=== PATIENT | female | born 1930 | race Caucasian/White ===

== ENCOUNTER → 2016-05-01 | Day surgery (SDC) | payer MEDICARE ==
[~2016-05-01] MED LIST: AMIT10TA13 PO; ATOR80TA PO; BISA10R PR; CILO100T PO; CLINDAMYCIN PHOS 900 MG/6 ML VIAL ONE; DILTCD180 PO; DOCU1CAP39 PO; LACTATED RINGER'S 1000 ML INJ 1,000 ML ONE; LIDOCAINE 1%/EPINEPHrine 1:100,000 SOLN 30 ML VIAL ONE; MAGN30S PO; MINERAL OIL 10 ML VIAL ONE; NORC7.5T PO; OMEP20CA5 PO; ONDANSETRON HCL 4 MG/2 ML VIAL IV PUSH ONE; PROPOFOL 200 MG/20 ML AMP IV ONE; SODIUM CHLORIDE 0.9% 100 ML ADDBAG IV ONE; VITA20003 PO
--- NOTE | 2016-05-02 08:12 | MP ---
cc: DON LOMELI M.D. DATE OF SURGERY: 05/01/2016 PREOPERATIVE DIAGNOSES 1. Large growing lesion left lateral leg, clinically squamous cell carcinoma. 2. Chronic skin lesion anterior lower thigh. possible scc POSTOPERATIVE DIAGNOSIS 1. Large growing lesion left lateral leg, clinically squamous cell carcinoma. 2. Chronic skin lesion anterior lower thigh. possible scc OPERATION 1. Large left leg lateral lesion 4 cm diameter excision, frozen section and split-thickness from the left thigh. 2. Excision left anterior lower thigh/knee area skin lesion squamous cell carcinoma, 2.5 cm circular excision and frozen section with bilateral V-Y advancement flap closure. SURGEON Dr. Lomeli ANESTHESIA General. INDICATIONS An 85-year-old white female with rapidly growing keratoacanthoma type of lesion on the left mid lateral leg with pain. The lesion had a fleshy base and is about 2 cm in base diameter. An excision with a 1 cm margin was planned. The second lesion has been present for a very long time but it appears to be a superficial red thickened lesion clinically suspicious for carcinoma and the lesion is present just above the knee crease about a 1.8 vertical and 1.5 cm transverse area lesion. The patient underwent explanation of the excision and frozen section process and reconstruction using skin graft for the left leg and a local closure of the knee area lesion. She understands the possibility of general risks and complications such as bleeding, infection, wound healing problems, wound dehiscence, possible need for chronic wound care, etc., and is willing to go ahead with the surgery. PROCEDURE The patient was brought to the operating room, was given supine position. Anesthesia was started. IV antibiotic had been given. A timeout was called and completed. Prep and drape was done. The preoperative markings were reinforced. A centimeter margin was taken around the left leg lateral lesion and a 4 mm margin was taken of the one on the lower thigh orienting it transversely. Both lesions were infiltrated with lidocaine 1% with epinephrine and saline solution, excised and suture marked superior and sent for frozen section. The excision on the lower thigh/anterior knee area was done circular and a lateral triangular extension was marked on both side going about 1.5 cm on each side. The ends were incised and the inner part of the triangle was lifted with approximately one-third of the connective tissue support underneath. Hemostasis was completed. 4-0 Vicryl sutures were used to approximate the two triangles to the midline and then additional stitch used at the peripheral surgical wound as well converting the V triangles into Y on both sides. The closure was completed without much tension. A split-thickness skin graft was harvested from the left thigh with a dermatome and meshed to 1.5 ratio. It was applied to the defect on the left leg and sutured in place. The excess graft after the meshing was returned back to the donor site. The frozen section report indicated the anterior thigh was a squamous cell carcinoma in situ with clear margins, and the left leg lesion was an invasive squamous cell carcinoma and again the margins were clear. The patient was given sterile dressing in all areas. The patient remained stable. Intraoperative blood loss was less than 5 cc. No complications. signed, not fully reviewed MD URBANO Lara/NOEMÍ /1:04 PM /7:54 AM PETER
== END | disposition home or self-care (01) ==
LOC: ESDC 07:51
PROVIDERS: ATTEND Plastic Surgery
DX: C44.729 Squamous cell carcinoma of skin of left lower limb, including hip (principal)
CPT/HCPCS: 00400; 11604; 14020; 15100; 88305; 88331; J2405; J3010; J7120

== ENCOUNTER 2016-11-20 12:37 | Inpatient (IN) | payer MEDICARE ==
[~2016-11-20] VITALS: Ht 157.5 cm; Wt 69.2 kg
[2016-11-20] VITALS (8 sets, daily range): BP systolic 115–141; BP diastolic 63–86; PULSE 74–161; RESP 18–20; TEMP 97.3–98.5; O2SAT 95–99
[~2016-11-20 12:37] MED LIST changes: -CLINDAMYCIN PHOS 900 MG/6 ML VIAL ONE; -LACTATED RINGER'S 1000 ML INJ 1,000 ML ONE; -LIDOCAINE 1%/EPINEPHrine 1:100,000 SOLN 30 ML VIAL ONE; -MINERAL OIL 10 ML VIAL ONE; -ONDANSETRON HCL 4 MG/2 ML VIAL IV PUSH ONE; -PROPOFOL 200 MG/20 ML AMP IV ONE; -SODIUM CHLORIDE 0.9% 100 ML ADDBAG IV ONE
--- NOTE | 2016-11-20 13:25 | PD ---
HPI Chief Complaint: Abdominal Pain Time Seen by Provider: 12:57 Travel History International Travel<30 days: No Contact w/Intl Traveler<30days: No Traveled to known affect area: No History of Present Illness HPI 86 years old female complains of chest pain and abdominal pain. Patient states that the symptoms started 2 days ago. Patient states that she has intermittent chest pain recently. Patient states that she had nuclear stress test done at [facility] by Dr. David Ramirez and Dr. Trujillo last week but does not know the results of that. Patient started having substernal chest pain and diffuse abdominal pain 2 days ago. Patient states that the chest pain and abdominal pain has been persistent since then. Patient states that the chest pain is sharp pain started at substernal area with radiation to the back. Patient states abdominal pain is sharp pain diffuse over the abdomen with radiation to the back also. Patient denies any fever chills. Patient denies any coughing congestion. Patient states that she has intermittent nausea vomiting the past 2 days. Patient denies any dysuria or frequency. Patient denies any vaginal discharge or bleeding. Patient has history hypertension, hyperlipidemia. Patient denies history diabetes. Patient is nonsmoker. Patient's adopted does not know family history of heart disease. On a scale of 1-10 the pain is a 6. Patient was admitted September 24, 2014 for choledocholithiasis, atrial fibrillation , acute kidney injury, coronary artery disease, hypertension, GERD. Patient had an MRCP and ERCP done with GI consultation and subsequent biliary stent placement. PFSH Past Medical History Arthritis: Yes Asthma: No Autoimmune Disease: No Blood Disorders: No Heart Rhythm Problems: No Cancer: No Cardiovascular Problems: Yes High Cholesterol: No Chemotherapy: No Chest Pain: No Congestive Heart Failure: No COPD: No Cerebrovascular Accident: Yes (TIA) Diabetes: No Diminished Hearing: No Endocrine: No Gastrointestinal Disorders: Yes (ACID REFLUX, "3 surgeries to remove gallstones ") GERD: No Glaucoma: No Genitourinary: No Headaches: No Hepatitis: No Hiatal Hernia: No Heparin Induced Thrombocytopen: No Hypertension: Yes Immune Disorder: No Implanted Vascular Access Dvce: Yes Kidney Stones: No Medical other: Yes (RIGHT EYE PROSTHESIS) Musculoskeletal: No Neurologic: No Psychiatric: No Reproductive: No Respiratory: Yes Migraines: No Myocardial Infarction: No Radiation Therapy: No Renal Failure: No Seizures: No Sickle Cell Disease: No Sleep Apnea: No Thyroid Disease: No Ulcer: No ?: Not Past Surgical History Abdominal Surgery: Yes ( SLING) AICD: No Appendectomy: No Arteriovenous Shunt: No Body Medical Devices: RIGHT EYE PROSTHESIS Cardiac Surgery: Yes (3 WAY BYPASS) Cholecystectomy: No Coronary Artery Bypass Graft: Yes Ear Surgery: No Endocrine Surgery: No Eye Surgery: Yes (CATARECTS. LOST LEFT EYE. ) Genitourinary Surgery: Yes (SLING) Gynecologic Surgery: Yes (HYSTERECTOMY) Hysterectomy: Yes Insulin Pump: No Joint Replacement: No Neurologic Surgery: No Oral Surgery: No Pacemaker: No Thoracic Surgery: No Other Surgery: Yes (AUGUSTINE CAROTID ENDARTERECTOMIES) Social History Alcohol Use: Yes (on occasion) Tobacco Use: No Substance Use: No Allergies-Medications (Allergen,Severity, Reaction): Coded Allergies: penicillin G (Unverified Allergy, Severe, HIVES, 10/23/16) Reported Meds & Prescriptions Reported Meds & Active Scripts Active Review of Systems General / Constitutional: No: Fever Eyes: No: Visual changes HENT: No: Headaches Cardiovascular: Positive: Chest Pain or Discomfort Respiratory: No: Shortness of Breath Gastrointestinal: Positive: Nausea, Vomiting, Abdominal Pain Genitourinary: No: Dysuria Musculoskeletal: No: Pain Skin: No Rash Neurologic: No: Weakness Psychiatric: No: Depression Endocrine: No: Polydipsia Hematologic/Lymphatic: No: Easy Bruising Physical Exam Narrative GENERAL: Well-nourished, well-developed patient. SKIN: Focused skin assessment warm/dry. HEAD: Normocephalic. EYES: No scleral icterus. No injection or drainage. NECK: Supple, trachea midline. No JVD or lymphadenopathy. CARDIOVASCULAR: Regular rate and rhythm without murmurs, gallops, or rubs. RESPIRATORY: Breath sounds equal bilaterally. No accessory muscle use. GASTROINTESTINAL: Abdomen soft, nondistended. Patient has moderate diffuse tenderness over the abdomen. No rebound tenderness. No mass. MUSCULOSKELETAL: No cyanosis, or edema. BACK: Nontender without obvious deformity. No CVA tenderness. Neurologic exam normal. Data Data Last Documented VS Vital Signs Date Time Temp Pulse Resp B/P (MAP) Pulse Ox O2 Delivery O2 Flow Rate FiO2 11/20/16 13:24 18 99 Nasal Cannula 2.00 11/20/16 13:00 98.5 98 Orders Orders Electrocardiogram (11/20/16 13:09) Complete Blood Count With Diff (11/20/16 13:09) Comprehensive Metabolic Panel (11/20/16 13:09) Creatine Kinase (Cpk) (11/20/16 13:09) Troponin I (11/20/16 13:09) B-Type Natriuretic Peptide (11/20/16 13:09) Prothrombin Time / Inr (Pt) (11/20/16 13:09) Act Partial Throm Time (Ptt) (11/20/16 13:09) Lipase (11/20/16 13:09) Urinalysis - C+S If Indicated (11/20/16 13:09) Chest, Single Ap (11/20/16 13:09) Iv Access Insert/Monitor (11/20/16 13:09) Ecg Monitoring (11/20/16 13:09) Oximetry (11/20/16 13:09) Morphine Inj (Morphine Inj) (11/20/16 13:30) Ondansetron Inj (Zofran Inj) (11/20/16 13:30) Morphine Inj (Morphine Inj) (11/20/16 13:30) Sodium Chlor 0.9% 1000 Ml Inj (Ns 1000 M (11/20/16 14:00) Ct Thorax/ Chest Wo Iv Contras (11/20/16 14:07) Ct Abd/Pel W/O Iv Contrast (11/20/16 14:07) Morphine Inj (Morphine Inj) (11/20/16 15:15) Levofloxacin 500 Mg Premix Inj (Levaquin (11/20/16 16:00) Metronidazole 500 Mg Inj (Flagyl 500 Mg (11/20/16 16:00) Labs Laboratory Tests Test 11/20/16 13:30 White Blood Count 39.1 TH/MM3 Red Blood Count 5.34 MIL/MM3 Hemoglobin 14.4 GM/DL Hematocrit 43.4 % Mean Corpuscular Volume 81.3 FL Mean Corpuscular Hemoglobin 26.9 PG Mean Corpuscular Hemoglobin Concent 33.1 % Red Cell Distribution Width 16.4 % Platelet Count 129 TH/MM3 Mean Platelet Volume 11.4 FL Neutrophils (%) (Auto) 89.5 % Lymphocytes (%) (Auto) 1.6 % Monocytes (%) (Auto) 7.4 % Eosinophils (%) (Auto) 0.5 % Basophils (%) (Auto) 1.0 % Neutrophils # (Auto) 35.1 TH/MM3 Lymphocytes # (Auto) 0.6 TH/MM3 Monocytes # (Auto) 2.9 TH/MM3 Eosinophils # (Auto) 0.2 TH/MM3 Basophils # (Auto) 0.4 TH/MM3 CBC Comment AUTO DIFF Differential Total Cells Counted 100 Neutrophils % (Manual) 71 % Band Neutrophils % 27 % Monocytes % 2 % Neutrophils # (Manual) 38.3 TH/MM3 Differential Comment FINAL DIFF MANUAL Platelet Estimate LOW Platelet Morphology Comment NORMAL Ovalocytes 1+ Acanthocytes 2+ Keratocytes 1+ Prothrombin Time 12.8 SEC Prothromb Time International Ratio 1.2 RATIO Activated Partial Thromboplast Time 31.5 SEC Blood Urea Nitrogen 32 MG/DL Creatinine 1.59 MG/DL Random Glucose 132 MG/DL Total Protein 8.6 GM/DL Albumin 3.7 GM/DL Calcium Level 9.5 MG/DL Alkaline Phosphatase 378 U/L Aspartate Amino Transf (AST/SGOT) 293 U/L Alanine Aminotransferase (ALT/SGPT) 479 U/L Total Bilirubin 4.1 MG/DL Sodium Level 134 MEQ/L Potassium Level 3.2 MEQ/L Chloride Level 98 MEQ/L Carbon Dioxide Level 23.2 MEQ/L Anion Gap 13 MEQ/L Estimat Glomerular Filtration Rate 31 ML/MIN Total Creatine Kinase 96 U/L Troponin I 0.22 NG/ML B-Type Natriuretic Peptide 586 PG/ML Lipase 49 U/L [facility] Medical Decision Making Medical Screen Exam Complete: Yes Emergency Medical Condition: Yes Interpretation(s) Last Impressions Chest X-Ray 11/20/16 1309 Signed Impressions: Service Date/Time: Sunday, November 20, 2016 13:24 - CONCLUSION: 1. Chronic interstitial changes with mild superimposed airspace disease in the left lower lung zone which may reflect atelectasis. Sam Buckner MD 1409 p.m. CBC WBC 39.1. Platelet 129. 89 neutrophil. Sodium 134. Potassium 3.2. BUN 32. Creatinine 1.59. AST 293. ALT 479. 1544 PM. Total bili 4.1. Alkaline phosphatase 378. BNP 586. INR 1.2. Troponin 0.22. Patient had chronic elevation of troponin. Last Impressions Chest X-Ray 11/20/16 1309 Signed Impressions: Service Date/Time: Sunday, November 20, 2016 13:24 - CONCLUSION: 1. Chronic interstitial changes with mild superimposed airspace disease in the left lower lung zone which may reflect atelectasis. Sam Buckner MD CT of the chest shows severe underlying emphysema. Chronic changes. CT abdomen and pelvis shows ileus. Differential Diagnosis Differential diagnosis including angina, [place], PE, pneumothorax, aortic aneurysm, gastritis, PUD, pancreatitis, cholecystitis, colitis, UTI, pyelonephritis, nephrolithiasis. Narrative Course 86 years old female with chest pain and abdominal pain, nausea vomiting. Normal saline solution 100 cc an hour. Morphine 2 mg IV. Zofran 4 mg IV. Levaquin 500 mg IV. Flagyl 500 mg IV. Diagnosis Primary Impression: Abdominal pain Qualified Codes: R10.84 - Generalized abdominal pain Additional Impressions: Ileus Chest pain Qualified Codes: R07.9 - Chest pain, unspecified Leukocytosis Qualified Codes: D72.829 - Elevated white blood cell count, unspecified Hypokalemia Transaminitis Christopher Mulligan MD Nov 20, 2016 13:25
[2016-11-20] MEDS ORDERED: MORPHINE SULFATE 4 MG/ML INJ IV PUSH ONE ×2 (13:30→15:15)
[2016-11-20] MEDS ORDERED: MORPHINE SULFATE 2 MG/ML INJ IV PUSH ONE (13:30)
[2016-11-20] MEDS ORDERED: ONDANSETRON HCL 4 MG/2 ML VIAL IV PUSH ONE (13:30)
[2016-11-20 13:42] LABS: AUTOMATED NEUTROPHIL # 35.1 TH/MM3 (1.8-7.7); BASOPHIL # 0.4 TH/MM3 (0-0.2); EOSINOPHIL # 0.2 TH/MM3 (0-0.4); EOSINOPHIL % 0.5 % (0.0-4.0); HEMATOCRIT 43.4 % (35.0-46.0); LYMPH % 1.6 % (9.0-44.0); LYMPHOCYTE # 0.6 TH/MM3 (1.0-4.8); MEAN CELL VOLUME 81.3 FL (80.0-100.0); MEAN CORPUSCULAR HEMOGLOBIN 26.9 PG (27.0-34.0); MEAN CORPUSCULAR HGB CONC 33.1 % (32.0-36.0); MONO % 7.4 % (0.0-8.0); NEUT % 89.5 % (16.0-70.0); PLATELET COUNT 129 TH/MM3 (150-450); RED BLOOD COUNT 5.34 MIL/MM3 (4.00-5.30); RED CELL DISTRIBUTION WIDTH 16.4 % (11.6-17.2); WHITE BLOOD COUNT 39.1 TH/MM3 (4.0-11.0)
[2016-11-20 13:47] LABS: HEMO FLAGS AUTO DIFF
[2016-11-20 13:50] LABS: APTT (PATIENT) 31.5 SEC (24.3-30.1); INTERNATIONAL NORMALIZED RATIO 1.2 RATIO; PROTHROMBIN TIME - PATIENT 12.8 SEC (9.8-11.6)
--- NOTE | 2016-11-20 13:56 | RADRPT ---
EXAM DATE/TIME: 11/20/2016 13:24 [facility] COMPARISON: CHEST SINGLE AP, September 27, 2014, 5:41. INDICATIONS : Chest pain. MEDICAL HISTORY : None. SURGICAL HISTORY : Triple bypass. ENCOUNTER: Initial ACUITY: 1 day PAIN SCORE: 0/10 LOCATION: Bilateral chest FINDINGS: Diffuse interstitial prominence with. Redemonstration of coarse interstitial markings in the left low er lung zone with slight increased parenchymal opacity. Cardiomediastinal contours are stable. Remain tabatha of exam is unchanged. CONCLUSION: 1. Chronic interstitial changes with mild superimposed airspace disease in the left lower lung zone w hich may reflect atelectasis. Sam Buckner MD on November 20, 2016 at 13:53 Board Certified Radiologist. This report was verified electronically.
[2016-11-20 14:00] LABS: ALT (GPT) 479 U/L (10-53); ANION GAP 13 MEQ/L (5-15); AST (GOT) 293 U/L (15-37); BICARBONATE 23.2 MEQ/L (21.0-32.0); BLOOD UREA NITROGEN 32 MG/DL (7-18); CHLORIDE 98 MEQ/L (98-107); GLOMERULAR FILTRATION RATE 31 ML/MIN (>89); POTASSIUM 3.2 MEQ/L (3.5-5.1); SODIUM (NA) 134 MEQ/L (136-145)
[2016-11-20] MEDS: SODIUM CHLOR 0.9% 1000 ML INJ 1,000 ML IV SCH ×2 (14:00→20:49)
[2016-11-20 14:04] LABS: ALKALINE PHOSPHATASE 378 U/L (45-117); TOTAL BILIRUBIN ADULT 4.1 MG/DL (0.2-1.0)
[2016-11-20 14:10] LABS: CREATINE KINASE 96 U/L (26-192)
[2016-11-20 14:28] LABS: BANDS 27 % (0-6); NEUTROPHIL # MANUAL DIFF 38.3 TH/MM3 (1.8-7.7); POLYS (SEG NEUTROPHILS) 71 % (16-70); WBC DIFF SAMPLE 100
[2016-11-20 14:29] LABS: ACANTHOCYTES 2+ (NORMAL); KERATOCYTES 1+ (NORMAL); OVALOCYTES 1+ (NORMAL); PLATELET ESTIMATE SMEAR LOW (NORMAL); PLATELET MORPHOLOGY NORMAL (NORMAL); SCAN/DIFF FINAL DIFF MANUAL
--- NOTE | 2016-11-20 15:39 | RADRPT ---
EXAM DATE/TIME: 11/20/2016 15:16 [facility] COMPARISON: No previous studies available for comparison. INDICATIONS : Diffuse abdominal pain. Nausea and vomiting. WBC = 39.1 ORAL CONTRAST: No oral contrast ingested. RADIATION DOSE: 5.10 CTDIvol (mGy) ; Combined studies - Thorax/Abdomen/Pelvis MEDICAL HISTORY : Cardiovascular disease. Cerebrovascular disease. Hypertension. SURGICAL HISTORY : CABG Hysterectomy. ENCOUNTER: Initial ACUITY: 2 days PAIN SCALE: 6/10 LOCATION: Diffuse abdomen. TECHNIQUE: Volumetric scanning of the abdomen and pelvis was performed. Using automated exposure control and ad justment of the mA and/or kV according to patient size, radiation dose was kept as low as reasonably achievable to obtain optimal diagnostic quality images. DICOM format image data is available electro nically for review and comparison. FINDINGS: LOWER LUNGS: Severe emphysema and scarring are present. LIVER: Homogeneous density without lesion. There is no dilation of the biliary tree. No calcified gallston es. SPLEEN: Normal size without lesion. PANCREAS: Within normal limits. KIDNEYS: Normal in size and shape. There is no solid mass, stone, or hydronephrosis. There are renal vascular calcifications. There are bilateral simple appearing renal cysts. ADRENAL GLANDS: Thickening bilaterally with no focal mass. VASCULAR: There is no aortic aneurysm. BOWEL/MESENTERY: No oral contrast was given limiting the sensitivity. There is a small hiatal hernia. There are scatte red diverticuli greatest in the sigmoid colon with no definite focal inflammatory change. There is an abnormal bowel gas pattern with multiple loops of nondilated air-containing small bowel as well as g aseous distention portions of the colon greatest involving the cecum. There is no free intraperitonea l air or fluid. ABDOMINAL WALL: Within normal limits. RETROPERITONEUM: There is no lymphadenopathy. BLADDER: No wall thickening or mass. REPRODUCTIVE: Within normal limits. INGUINAL: There is no lymphadenopathy or hernia. MUSCULOSKELETAL: Within normal limits for patient age. CONCLUSION: 1. Abnormal bowel gas pattern which may represent an ileus. 2. Mild to moderate diverticulosis with no inflammatory change. 3. Emphysema and scarring in the lung bases. Maikol Paredes MD on November 20, 2016 at 15:33 Board Certified Radiologist. This report was verified electronically.
--- NOTE | 2016-11-20 15:42 | RADRPT ---
EXAM DATE/TIME: 11/20/2016 15:13 [facility] COMPARISON: CHEST SINGLE AP, November 20, 2016, 13:24. INDICATIONS : Substernal pain that radiates to the back x 2 days. RADIATION DOSE: 5.10 CTDIvol (mGy) ; Combined studies - Thorax/Abdomen/Pelvis MEDICAL HISTORY : Cardiovascular disease. Cerebrovascular disease. Hypertension. SURGICAL HISTORY : CABG Hysterectomy. ENCOUNTER: Initial ACUITY: 2 days PAIN SCALE: 6/10 LOCATION: chest TECHNIQUE: Volumetric scanning of the chest was performed. Using automated exposure control and adjustment of t he mA and/or kV according to patient size, radiation dose was kept as low as reasonably achievable to obtain optimal diagnostic quality images. DICOM format image data is available electronically for r eview and comparison. Follow-up recommendations for detected pulmonary nodules are based at a minimum on nodule size and pa tient risk factors according to Fleischner Society Guidelines. FINDINGS: LUNGS: There is no consolidation or pneumothorax. Severe underlying emphysema is noted. There is honeycombin g in the lung bases. No concerning pulmonary nodule is visualized. PLEURAE: There is no pleural thickening or pleural effusion. MEDIASTINUM: Status post median sternotomy with postsurgical changes. The heart size is within normal limits. Edwina nary artery calcifications are present. There are small reactive appearing mediastinal lymph nodes. T here is no pericardial effusion. AXILLAE: Within normal limits. No lymphadenopathy. MUSCULOSKELETAL: Within normal limits for patient age. Mild scoliosis and degenerative change in the thoracic spine. MISCELLANEOUS: The visualized upper abdominal organs demonstrate no acute abnormality. CONCLUSION: 1. Severe underlying emphysema. 2. Status post median sternotomy with postsurgical changes. Maikol Paredes MD on November 20, 2016 at 15:38 Board Certified Radiologist. This report was verified electronically.
[2016-11-20] MEDS ORDERED: LEVOFLOXACIN 500 MG PREMIX INJ 100 ML IV ONE (16:00)
[2016-11-20] MEDS ORDERED: metroNIDAZOLE 500 MG INJ 100 ML IV ONE (16:00)
[2016-11-20] MEDS ORDERED: POTASSIUM CHLOR 20 MEQ PREMIX 100 ML IV ONE (16:00)
[2016-11-20] MEDS ORDERED: SODIUM CHLORIDE 0.9% FLUSH 10 ML FLUSH IV FLUSH PRN (16:15)
[2016-11-20] MEDS ORDERED: MAGNESIUM HYDROXIDE SUSP 30 ML CUP PO PRN (16:15)
[2016-11-20] MEDS ORDERED: NALOXONE HCL 0.4 MG/ML AMP IV PRN (16:15)
[2016-11-20] MEDS ORDERED: ONDANSETRON HCL 4 MG/2 ML VIAL IVP PRN (16:15)
[2016-11-20] MEDS: NS + KCL 20 MEQ INJ 1,000 ML IV SCH ×2 (16:15→18:07)
[2016-11-20] MEDS ORDERED: ACETAMINOPHEN 325 MG TAB PO PRN (16:15)
[2016-11-20] MEDS: ENOXAPARIN SODIUM 30 MG/0.3 ML SYRINGE SQ SCH (16:30)
--- NOTE | 2016-11-20 16:49 | PD.CONS ---
HPI History of Present Illness This is a 86 year old female with hx HTN, AF on ASA, choledocholithiasis s/p ERCP in 2015 who presented with n/v, indigestion, epigastric pain. The pain is sharp and dull, radiates to the back, no exacerbating or relieving factors. Denies jaundice. ADmits subjective fevers and night sweats last night. ONset 2d ago. SHe was seen in 2015 for choledocholithiasis and had ERCP with brushing and stent, path benign. She says after that she went to [facility] and then to [facility] to have more stones removed from her bile duct x 3. According to EMR after ERCP she was to f/u with GI as outpatient and have EUS, she says she did not do this. ON admission she has elevated LFTs and WBC 39.1. SHe says she had a stress test and US done recently but does not know results. Denies diarrhea, constipation, blood in stool, tarry stool, blood in emesis, weight loss. Had BM yesterday. (Radha Jamil) PFSH Past Medical History HTN AF HLD Past Surgical History right eye prosthesis hysterectomy CABG 15 y ago bilat endarterectomy 20 y ago (Radha Jamil) Coded Allergies: penicillin G (Unverified Allergy, Severe, HIVES, 10/23/16) Family History adopted Social History 2 glasses wine daily quit smoking 15 y ago no illicit drugs (Radha Jamil) Review of Systems Constitutional: COMPLAINS OF: Fever Eyes: DENIES: Blurred vision Ears, nose, mouth, throat: DENIES: Hearing loss Respiratory: DENIES: Hemoptysis Cardiovascular: COMPLAINS OF: Chest pain, DENIES: Lower Extremity Edema Gastrointestinal: COMPLAINS OF: Abdominal pain, Nausea, Vomiting, DENIES: Black stools, Bloody stools, Constipation, Diarrhea, Hematemesis Genitourinary: DENIES: Hematuria Musculoskeletal: DENIES: Joint Swelling Integumentary: DENIES: Rash, Jaundice Neurologic: DENIES: Abnormal gait Psychiatric: DENIES: Confusion (Radha Jamil) GI Exam Vitals I&O Vital Signs Date Time Temp Pulse Resp B/P (MAP) Pulse Ox O2 Delivery O2 Flow Rate FiO2 11/20/16 16:01 82 18 130/78 (95) 98 Nasal Cannula 3.00 11/20/16 13:24 18 99 Nasal Cannula 2.00 11/20/16 13:00 98.5 98 18 141/82 (101) 96 Nasal Cannula 2.00 11/20/16 13:00 18 Imaging Last Impressions Chest CT 11/20/16 1407 Signed Impressions: Service Date/Time: Sunday, November 20, 2016 15:13 - CONCLUSION: 1. Severe underlying emphysema. 2. Status post median sternotomy with postsurgical changes. Maikol Paredes MD Abdomen/Pelvis CT 11/20/16 1407 Signed Impressions: Service Date/Time: Sunday, November 20, 2016 15:16 - CONCLUSION: 1. Abnormal bowel gas pattern which may represent an ileus. 2. Mild to moderate diverticulosis with no inflammatory change. 3. Emphysema and scarring in the lung bases. Maikol Paredes MD Chest X-Ray 11/20/16 1309 Signed Impressions: Service Date/Time: Sunday, November 20, 2016 13:24 - CONCLUSION: 1. Chronic interstitial changes with mild superimposed airspace disease in the left lower lung zone which may reflect atelectasis. Sam Buckner MD Laboratory Test 11/20/16 13:30 White Blood Count 39.1 TH/MM3 Red Blood Count 5.34 MIL/MM3 Hemoglobin 14.4 GM/DL Hematocrit 43.4 % Mean Corpuscular Volume 81.3 FL Mean Corpuscular Hemoglobin 26.9 PG Mean Corpuscular Hemoglobin Concent 33.1 % Red Cell Distribution Width 16.4 % Platelet Count 129 TH/MM3 Mean Platelet Volume 11.4 FL Neutrophils (%) (Auto) 89.5 % Lymphocytes (%) (Auto) 1.6 % Monocytes (%) (Auto) 7.4 % Eosinophils (%) (Auto) 0.5 % Basophils (%) (Auto) 1.0 % Neutrophils # (Auto) 35.1 TH/MM3 Lymphocytes # (Auto) 0.6 TH/MM3 Monocytes # (Auto) 2.9 TH/MM3 Eosinophils # (Auto) 0.2 TH/MM3 Basophils # (Auto) 0.4 TH/MM3 CBC Comment AUTO DIFF Differential Total Cells Counted 100 Neutrophils % (Manual) 71 % Band Neutrophils % 27 % Monocytes % 2 % Neutrophils # (Manual) 38.3 TH/MM3 Differential Comment FINAL DIFF MANUAL Platelet Estimate LOW Platelet Morphology Comment NORMAL Ovalocytes 1+ Acanthocytes 2+ Keratocytes 1+ Prothrombin Time 12.8 SEC Prothromb Time International Ratio 1.2 RATIO Activated Partial Thromboplast Time 31.5 SEC Blood Urea Nitrogen 32 MG/DL Creatinine 1.59 MG/DL Random Glucose 132 MG/DL Total Protein 8.6 GM/DL Albumin 3.7 GM/DL Calcium Level 9.5 MG/DL Alkaline Phosphatase 378 U/L Aspartate Amino Transf (AST/SGOT) 293 U/L Alanine Aminotransferase (ALT/SGPT) 479 U/L Total Bilirubin 4.1 MG/DL Sodium Level 134 MEQ/L Potassium Level 3.2 MEQ/L Chloride Level 98 MEQ/L Carbon Dioxide Level 23.2 MEQ/L Anion Gap 13 MEQ/L Estimat Glomerular Filtration Rate 31 ML/MIN Total Creatine Kinase 96 U/L Troponin I 0.22 NG/ML B-Type Natriuretic Peptide 586 PG/ML Lipase 49 U/L Physical Examination HEENT: PERRL; normocephalic; atraumatic; no jaundice. CHEST: CTA CARDIAC: RRR ABDOMEN: Soft, nondistended, TTP left abd; no hepatosplenomegaly; bowel sounds are present in all four quadrants. EXTREMITIES: No clubbing, cyanosis, or edema. SKIN: Normal; no rash; no jaundice. 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 Had more stones removed at [facility]. CT shows abnml gas pattern whcih may represent ileus. pt had formed BM yesterday. MRCP pending - elevated LFTs - on admission Tbil 4.1, AST 293, ALT 479, ALP 378. MRCP pending. - leukocytosis, subjective fever - wbc 39.1 on flagyl and levaquin PLAN - await MRCP - monitor labs - continue abx - NPO in case of procedure depending on MRCP results - supportive care - further recs to follow This pt seen by myself and Dr Blackman and this note is written on her behalf (Radha Jamil) Physician Comments last ercp 2015 with sphincterotomy and removal of stones Recommendations ercp in am once cardiac stable iv fluids iv antibiotics (Rosette Blackman MD) Radha Jamil Nov 20, 2016 16:49 Rosette Blackman MD Nov 20, 2016 20:11
--- NOTE | 2016-11-20 18:56 | HHI.HP ---
HPI Service [facility] Hospitalists Primary Care Physician Thee Lambert MD Admission Diagnosis abdominal pain. Transaminitis. Ileus. Chest pain. Chief Complaint: ABDOMINAL PAIN Travel History International Travel<30 Days: No Contact w/Intl Traveler <30 Da: No Traveled to Known Affected Are: No History of Present Illness Patient is an 86-year-old female with multiple medical problems including atrial fibrillation, coronary artery disease, hypertension, and history of clinically to cholelithiasis requiring ERCP in 2014. Patient complains of abdominal pain and chest pain ongoing for about for approximately 2 days. Patient describes the chest pain is sharp and substernal with radiation to her back. Patient describes the abdominal pain as diffuse over her abdomen with radiation to her back. Patient denies ever intermittent nausea and vomiting for the last 2 days Pt recently underwent w/u with [facility] Cardiology for chest pain. Patient apparently had a Lexiscan, but does not know the results. Unfortunately, this time I am unable to access [facility] EHR to obtain further information about this hospitalization. I will speak with [facility] cardiology tomorrow. During 2014 [place] admission patient was diagnosed with choledocholithiasis. Ultimately patient underwent ERCP performed 09/24/[address] Morrison. - Noted ampullary stricture with edema - Performed biliary biopsy and brushings - Perform sphincterotomy and placed biliary stent Following ERCP patient's LFTs gradually improved patient made clinical improvement as well. Biopsy and brushings did not show carcinoma. 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 At that time these findings were discussed with radiology. Findings appear chronic and was noted on previous studies During that hospitalization GI had recommended patient undergo outpatient EUS to further assess common bile duct stricture During September 2014 admission patient also had difficulties with atrial fibrillation with rapid ventricular response. Patient was ultimately discharged on diltiazem ER Review of Systems Constitutional: DENIES: Diaphoretic episodes, Fatigue, Fever, Weight gain, Weight loss, Chills, Dizziness, Change in appetite, Night Sweats Endocrine: DENIES: Heat/cold intolerance, Polydipsia, Polyuria, Polyphagia Eyes: DENIES: Blurred vision, Diplopia, Eye inflammation, Eye pain, Vision loss , Photosensitivity, Double Vision Ears, nose, mouth, throat: DENIES: Tinnitus, Hearing loss, Vertigo, Nasal discharge, Oral lesions, Throat pain, Hoarseness, Ear Pain, Running Nose, Epistaxis, Sinus Pain, Toothache, Odynophagia Respiratory: DENIES: Apneas, Cough, Snoring, Wheezing, Hemoptysis, Sputum production, Shortness of breath Cardiovascular: DENIES: Chest pain, Palpitations, Syncope, Dyspnea on Exertion , PND, Lower Extremity Edema, Orthopnea, Claudication Gastrointestinal: COMPLAINS OF: Abdominal pain, Nausea, Vomiting, See HPI, DENIES: Black stools, Bloody stools, BRB per rectum, Constipation, Diarrhea, GERD, Reflux, Difficulty Swallowing, Anorexia Genitourinary: DENIES: Urinary frequency, Urinary incontinence, Urgency, Hematuria, Dysuria, Nocturia Musculoskeletal: DENIES: Joint pain, Muscle aches, Stiffness, Joint Swelling, Back pain, Neck pain Integumentary: DENIES: Abnormal pigmentation, Pruritus, Rash, Nail changes, Breast masses, Breast skin changes, Nipple discharge Hematologic/lymphatic: DENIES: Bruising, Lymphadenopathy Immunologic/allergic: DENIES: Eczema, Urticaria Neurologic: DENIES: Abnormal gait, Headache, Localized weakness, Paresthesias, Seizures, Speech Problems, Tremor, Poor Balance Psychiatric: DENIES: Anxiety, Confusion, Mood changes, Depression, Hallucinations, Agitation, Suicidal Ideation, Homicidal Ideation, Delusions, History of Bipolar, History of Schizophrenia Past Family Social History Past Medical History 1. Coronary disease. 2. Three-vessel coronary artery bypass grafting in 2005. 3. Hypertension. 4. Hyperlipidemia. 5. GERD. 6. Past history of tobacco abuse. 7. Denies diabetes. 8. Choledocholithiasis, status post ERCP with stenting Past Surgical History 1. Three vessel coronary artery bypass grafting in 2005. 2. 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 3. Bladder suspension. 4. Hysterectomy. 5) ERCP 2014 Reported Medications Reported Meds & Active Scripts Active Allergies: Coded Allergies: penicillin G (Unverified Allergy, Severe, HIVES, 10/23/16) Family History The patient states she is adopted and does not know her family history. Social History - The patient quit smoking 2004, prior to that she smoked one pack ofcigarettes daily for 63 years. 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 SKIN: No rashes, ecchymoses or lesions. Cool and dry. HEAD: Atraumatic. Normocephalic. No temporal or scalp tenderness. EYES: Pupils equal round and reactive. Extraocular motions intact. No scleral icterus. No injection or drainage. ENT: Nose without bleeding, purulent drainage or septal hematoma. Throat without erythema, tonsillar hypertrophy or exudate. Uvula midline. Airway patent. NECK: Trachea midline. No JVD or lymphadenopathy. Supple, nontender, no meningeal signs. CARDIOVASCULAR: Regular rate and rhythm without murmurs, gallops, or rubs. RESPIRATORY: Clear to auscultation. Breath sounds equal bilaterally. No wheezes , rales, or rhonchi. GASTROINTESTINAL: Abdomen soft, non-tender, nondistended. No hepato-splenomegaly , or palpable masses. No guarding. MUSCULOSKELETAL: Extremities without clubbing, cyanosis, or edema. No joint tenderness, effusion, or edema noted. No calf tenderness. Negative Homans sign bilaterally. NEUROLOGICAL: Awake and alert. Cranial nerves II through XII intact. Motor and sensory grossly within normal limits. Five out of 5 muscle strength in all muscle groups. Normal speech. Laboratory Laboratory Tests Test 11/20/16 13:30 White Blood Count 39.1 Red Blood Count 5.34 Hemoglobin 14.4 Hematocrit 43.4 Mean Corpuscular Volume 81.3 Mean Corpuscular Hemoglobin 26.9 Mean Corpuscular Hemoglobin Concent 33.1 Red Cell Distribution Width 16.4 Platelet Count 129 Mean Platelet Volume 11.4 Neutrophils (%) (Auto) 89.5 Lymphocytes (%) (Auto) 1.6 Monocytes (%) (Auto) 7.4 Eosinophils (%) (Auto) 0.5 Basophils (%) (Auto) 1.0 Neutrophils # (Auto) 35.1 Lymphocytes # (Auto) 0.6 Monocytes # (Auto) 2.9 Eosinophils # (Auto) 0.2 Basophils # (Auto) 0.4 CBC Comment AUTO DIFF Differential Total Cells Counted 100 Neutrophils % (Manual) 71 Band Neutrophils % 27 Monocytes % 2 Neutrophils # (Manual) 38.3 Differential Comment FINAL DIFF MANUAL Platelet Estimate LOW Platelet Morphology Comment NORMAL Ovalocytes 1+ Acanthocytes 2+ Keratocytes 1+ Prothrombin Time 12.8 Prothromb Time International Ratio 1.2 Activated Partial Thromboplast Time 31.5 Blood Urea Nitrogen 32 Creatinine 1.59 Random Glucose 132 Total Protein 8.6 Albumin 3.7 Calcium Level 9.5 Alkaline Phosphatase 378 Aspartate Amino Transf (AST/SGOT) 293 Alanine Aminotransferase (ALT/SGPT) 479 Total Bilirubin 4.1 Sodium Level 134 Potassium Level 3.2 Chloride Level 98 Carbon Dioxide Level 23.2 Anion Gap 13 Estimat Glomerular Filtration Rate 31 Total Creatine Kinase 96 Troponin I 0.22 B-Type Natriuretic Peptide 586 Lipase 49 Result Diagram: 11/20/16 1330 11/20/16 1330 Imaging Last Impressions Chest CT 11/20/16 1407 Signed Impressions: Service Date/Time: Sunday, November 20, 2016 15:13 - CONCLUSION: 1. Severe underlying emphysema. 2. Status post median sternotomy with postsurgical changes. Maikol Paredes MD Abdomen/Pelvis CT 11/20/16 1407 Signed Impressions: Service Date/Time: Sunday, November 20, 2016 15:16 - CONCLUSION: 1. Abnormal bowel gas pattern which may represent an ileus. 2. Mild to moderate diverticulosis with no inflammatory change. 3. Emphysema and scarring in the lung bases. Maikol Paredes MD Chest X-Ray 11/20/16 1309 Signed Impressions: Service Date/Time: Sunday, November 20, 2016 13:24 - CONCLUSION: 1. Chronic interstitial changes with mild superimposed airspace disease in the left lower lung zone which may reflect atelectasis. Sam Buckner MD Septic Shock Reassessment Heart: Regular rate and rhythm Lungs: Clear Skin: Warm Peripheral Pulses: Bounding Right Radial Bounding Left Radial Bounding Right Popliteal Bounding Left Popliteal Bounding Right Dorsalis Pedis Bounding Left Dorsalis Pedis Bounding Right Posterior Tibial Bounding Left Posterior Tibial Capillary Refill: Brisk Caprini VTE Risk Assessment Caprini VTE Risk Assessment: Mod/High Risk (score >= 2) Caprini Risk Assessment Model Point Value = 1 Point Value = 2 Point Value = 3 Point Value = 5 Age 41-60 Minor surgery BMI > 25 kg/m2 Swollen legs Varicose veins or History of unexplained or recurrent spontaneous Oral contraceptives or hormone replacement Sepsis (< 1 month) Serious lung disease, including pneumonia (< 1 month) Abnormal pulmonary function Acute myocardial infarction Congestive heart failure (< 1 month) History of inflammatory bowel disease Medical patient at bed rest Age 61-74 Arthroscopic surgery Major open surgery (> 45 min) Laparoscopic surgery (> 45 min) Malignancy Confined to bed (> 72 hours) Immobilizing plaster cast Central venous access Age >= 75 History of VTE Family history of VTE Factor V Leiden Prothrombin [id number] Lupus anticoagulant Anticardiolipin antibodies Elevated serum homocysteine Heparin-induced thrombocytopenia Other congenital or acquired thrombophilia Stroke (< 1 month) Elective arthroplasty Hip, pelvis, or leg fracture Acute spinal cord injury (< 1 month) Prophylaxis Regimen Total Risk Factor Score Risk Level Prophylaxis Regimen 0-1 Low Early ambulation 2 Moderate Order ONE of the following: *Sequential Compression Device (SCD) *Heparin 5000 units SQ BID 3-4 Higher Order ONE of the following medications: *Heparin 5000 units SQ TID *Enoxaparin/Lovenox 40 mg SQ daily (WT < 150 kg, CrCl > 30 mL/min) *Enoxaparin/Lovenox 30 mg SQ daily (WT < 150 kg, CrCl > 10-29 mL/min) *Enoxaparin/Lovenox 30 mg SQ BID (WT < 150 kg, CrCl > 30 mL/min) AND/OR *Sequential Compression Device (SCD) 5 or more Highest Order ONE of the following medications: *Heparin 5000 units SQ TID (Preferred with Epidurals) *Enoxaparin/Lovenox 40 mg SQ daily (WT < 150 kg, CrCl > 30 mL/min) *Enoxaparin/Lovenox 30 mg SQ daily (WT < 150 kg, CrCl > 10-29 mL/min) *Enoxaparin/Lovenox 30 mg SQ BID (WT < 150 kg, CrCl > 30 mL/min) AND *Sequential Compression Device (SCD) Assessment and Plan Problem List: (1) Abdominal pain ICD Codes: R10.9 - Abdominal pain Status: Acute Plan: - Pt presents with c/o diffuse abdominal pain, n/v x 2d - CT abd/pelvis (11/20/16) --> possible ileus - elevated transaminases on admission - During patients 2014 [place] admission patient was diagnosed with choledocholithiasis. - Ultimately patient underwent ERCP performed 09/24/[address] Morrison. - Noted ampullary stricture with edema - Performed biliary biopsy and brushings - Perform sphincterotomy and placed biliary stent - Following ERCP patient's LFTs gradually improved patient made clinical improvement as well. Biopsy and brushings did not show carcinoma. 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 At that time these findings were discussed with radiology. Findings appear chronic and was noted on previous studies - During that hospitalization GI had recommended patient undergo outpatient EUS to further assess common bile duct stricture. EUS never done - levaquin & flagyl started in ER & will be continued - IVFs - await MRCP - appreciate input from GI - pt may require repeat ERCP - repeat BMP, LFTs in AM (2) CAD (coronary artery disease) ICD Codes: I25.10 - CAD (coronary artery disease) Status: Chronic Plan: - h/o CABG - recent Hospitalization at , last week - unable to obtain records thru [facility] EHR at this time - per pt she had lexiscan & echocardiogram - will obtain results - continue outpt medications - (3) Hypertension ICD Codes: I10 - Hypertension Status: Chronic Plan: - continue outpt medications (4) Transaminitis ICD Codes: R74.0 - Nonspecific elevation of levels of transaminase and lactic acid dehydrogenase [LDH] Status: Acute (5) Atrial flutter ICD Codes: I48.92 - Atrial flutter Status: Chronic Plan: - continue outpt medications Physician Certification 2 Midnight Certification Type: Admission for Inpatient Services Order for Inpatient Services The services are ordered in accordance with Medicare regulations or non- Medicare payer requirements, as applicable. In the case of services not specified as inpatient-only, they are appropriately provided as inpatient services in accordance with the 2-midnight benchmark. Estimated LOS (days): 3 3 days is the estimated time the patient will need to remain in the hospital, assuming treatment plan goals are met and no additional complications. Post-Hospital Plan: Not yet determined Problem Qualifiers (1) Abdominal pain: Qualified Codes: R10.84 - Generalized abdominal pain (2) CAD (coronary artery disease): Qualified Codes: I25.10 - Atherosclerotic heart disease of [place] coronary artery without angina pectoris (3) Hypertension: Qualified Codes: I10 - Essential (primary) hypertension (4) Atrial flutter: Qualified Codes: I48.92 - Unspecified atrial flutter Yann Armstrong DO Nov 20, 2016 18:56
[2016-11-20 19:25] LABS: BLOOD, URINE SMALL (NEG); COMMENT (UR) CULT NOT INDICATED; CULTURE IF INDICATED CULT NOT INDICATED; GLUCOSE,URINE NEG (NEG); HYALINE CAST, URINE 1 /lpf (RARE); KETONE, URINE NEG (NEG); NITRITE,URINE NEG (NEG); SQUAMOUS EPITHELIAL CELL URINE 10 /hpf (0-5); URINE COLOR DARK-YELLOW (YELLW/STRAW)
[2016-11-20] MEDS ORDERED: CILO100T PO (19:43)
[2016-11-20] MEDS ORDERED: HYDR-2376 PO (19:43)
[2016-11-20] MEDS ORDERED: AMIT10TA6 PO (19:43)
[2016-11-20] MEDS ORDERED: ATOR1TAB18 PO (19:43)
[2016-11-20] MEDS ORDERED: ASPI81CH37 CHEW (19:43)
[2016-11-20] MEDS ORDERED: PANT20TA2 PO (19:43)
[2016-11-20] MEDS ORDERED: NIFE60TA58 PO (19:43)
[2016-11-20] MEDS ORDERED: DILTIAZEM INJ 125 MG in SODIUM CHLORIDE 0.9% INJ 100 ML IV PRN (20:00)
[2016-11-20] MEDS: ACETAMINOPHEN/HYDROcodone 325 MG/5 MG TAB PO PRN (20:16)
[2016-11-20] MEDS: SODIUM CHLORIDE 0.9% FLUSH 10 ML FLUSH IV FLUSH SCH (21:00)
[2016-11-20] MEDS: PANTOPRAZOLE SOD 20 MG DELAYED RELEASE TAB PO SCH (21:18)
[2016-11-20] MEDS: ATORVASTATIN 80 MG TAB PO SCH (21:18)
[2016-11-20] MEDS: CILOSTAZOL 100 MG TAB PO SCH (21:18)
[2016-11-20] MEDS: AMITRIPTYLINE HCL 10 MG TAB PO SCH (21:18)
[2016-11-20] MEDS: TEMAZEPAM 15 MG CAP PO PRN (22:57)
[2016-11-21] VITALS (12 sets, daily range): BP systolic 95–138; BP diastolic 52–69; PULSE 86–97; RESP 18–23; TEMP 97.8–98.1; O2SAT 90–95
[2016-11-21] MEDS: metroNIDAZOLE 500 MG INJ 100 ML IV SCH ×4 (01:50→22:38)
[2016-11-21] MEDS ORDERED: SODIUM CHLORID 0.9% 500 ML IV PRN (04:45)
[2016-11-21] MEDS ORDERED: INSULIN HUMAN REGULAR 1,000 UNITS/10 ML VIAL SQ PRN (04:45)
[2016-11-21] MEDS ORDERED: POVIDONE IODINE 5% (ANTISEPSIS KIT) 4 APPLICATIONS EACH NARE PRN (04:45)
[2016-11-21] MEDS ORDERED: METOPROLOL TARTRATE 25 MG TAB PO PRN (04:45)
[2016-11-21] MEDS ORDERED: LACTATED RINGER'S 1000 ML IV PRN (04:45)
[2016-11-21] MEDS ORDERED: CHLORHEXIDINE GLUCONATE 2 % 1 PACK (2 CLOTHS) TOPICAL PRN (04:45)
[2016-11-21] MEDS: SODIUM CHLOR 0.9% 1000 ML INJ 1,000 ML IV SCH ×3 (05:15→21:17)
[2016-11-21] MEDS: NS + KCL 20 MEQ INJ 1,000 ML IV SCH (05:57)
[2016-11-21] MEDS: NIFEdipine 60 MG SUSTAINED RELEASE TAB PO SCH (07:37)
[2016-11-21] MEDS: PANTOPRAZOLE SOD 20 MG DELAYED RELEASE TAB PO SCH ×2 (07:37→21:14)
[2016-11-21] MEDS: SODIUM CHLORIDE 0.9% FLUSH 10 ML FLUSH IV FLUSH SCH ×2 (07:38→21:00)
[2016-11-21] MEDS: CILOSTAZOL 100 MG TAB PO SCH ×2 (07:40→21:14)
[2016-11-21] MEDS: ASPIRIN 81 MG CHEW TAB CHEW SCH (07:40)
--- NOTE | 2016-11-21 09:31 | HHI.GIFU ---
Subjective Remarks Patient laying in bed comfortably, still having abdominal discomfort, Objective Vitals I&O Vital Signs Date Time Temp Pulse Resp B/P (MAP) Pulse Ox O2 Delivery O2 Flow Rate FiO2 11/21/16 08:00 97.8 91 18 105/52 (69) 92 11/21/16 04:01 91 11/21/16 04:00 97.8 93 20 96/52 (67) 93 11/21/16 00:03 97 11/21/16 00:00 97.9 94 22 95/53 (67) 91 11/20/16 22:25 161 11/20/16 22:00 98.2 86 18 115/63 (80) 96 11/20/16 21:30 97.3 96 20 141/64 (89) 96 11/20/16 21:16 95 11/20/16 21:14 96 127/86 11/20/16 21:00 97.3 74 19 127/86 (100) 95 11/20/16 19:25 95 Simple Mask 5.00 11/20/16 16:01 82 18 130/78 (95) 98 Nasal Cannula 3.00 11/20/16 13:24 18 99 Nasal Cannula 2.00 11/20/16 13:00 98.5 98 18 141/82 (101) 96 Nasal Cannula 2.00 11/20/16 13:00 18 I/O 11/20/16 11/20/16 11/20/16 11/21/16 11/21/16 11/21/16 07:00 15:00 23:00 07:00 15:00 23:00 Intake Total 233 ml 1185 ml Output Total 400 ml Balance 233 ml 785 ml Intake Oral 0 ml IV Total 233 ml 1185 ml Output Urine Total 400 ml # Bowel Movements 0 Laboratory Laboratory Tests Test 11/20/16 13:30 11/20/16 19:06 White Blood Count 39.1 Red Blood Count 5.34 Hemoglobin 14.4 Hematocrit 43.4 Mean Corpuscular Volume 81.3 Mean Corpuscular Hemoglobin 26.9 Mean Corpuscular Hemoglobin Concent 33.1 Red Cell Distribution Width 16.4 Platelet Count 129 Mean Platelet Volume 11.4 Neutrophils (%) (Auto) 89.5 Lymphocytes (%) (Auto) 1.6 Monocytes (%) (Auto) 7.4 Eosinophils (%) (Auto) 0.5 Basophils (%) (Auto) 1.0 Neutrophils # (Auto) 35.1 Lymphocytes # (Auto) 0.6 Monocytes # (Auto) 2.9 Eosinophils # (Auto) 0.2 Basophils # (Auto) 0.4 CBC Comment AUTO DIFF Differential Total Cells Counted 100 Neutrophils % (Manual) 71 Band Neutrophils % 27 Monocytes % 2 Neutrophils # (Manual) 38.3 Differential Comment FINAL DIFF MANUAL Platelet Estimate LOW Platelet Morphology Comment NORMAL Ovalocytes 1+ Acanthocytes 2+ Keratocytes 1+ Prothrombin Time 12.8 Prothromb Time International Ratio 1.2 Activated Partial Thromboplast Time 31.5 Blood Urea Nitrogen 32 Creatinine 1.59 Random Glucose 132 Total Protein 8.6 Albumin 3.7 Calcium Level 9.5 Alkaline Phosphatase 378 Aspartate Amino Transf (AST/SGOT) 293 Alanine Aminotransferase (ALT/SGPT) 479 Total Bilirubin 4.1 Sodium Level 134 Potassium Level 3.2 Chloride Level 98 Carbon Dioxide Level 23.2 Anion Gap 13 Estimat Glomerular Filtration Rate 31 Total Creatine Kinase 96 Troponin I 0.22 B-Type Natriuretic Peptide 586 Lipase 49 Urine Color DARK-YELLOW Urine Turbidity HAZY Urine pH 6.0 Urine Specific [place] 1.017 Urine Protein 100 Urine Glucose (UA) NEG Urine Ketones NEG Urine Occult Blood SMALL Urine Nitrite NEG Urine Bilirubin SMALL Urine Urobilinogen 2.0 Urine Leukocyte Esterase NEG Urine RBC 1 Urine WBC 2 Urine Squamous Epithelial Cells 10 Urine Hyaline Casts 1 Microscopic Urinalysis Comment CULT NOT INDICATED Physical Exam HEENT: Pupils round and reactive to light; normocephalic; atraumatic; no jaundice. Throat is clear. NECK: Neck is supple, no JVD, no lymphadenopathy. CHEST: Chest is clear to auscultation and percussion. CARDIAC: Regular rate and rhythm with no murmur gallop or rubs. ABDOMEN: Soft, nondistended, right upper quadrant tenderness; no hepatosplenomegaly; bowel sounds are present in all four quadrants. EXTREMITIES: No clubbing, cyanosis, or edema. SKIN: Normal; no rash; no jaundice. 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 Assessment and Plan Plan ASSESSMENT - Left side pain, n/v - unclear etiology, pt with hx choledocholithiasis s/p ERCP with stent and benign brushings 2014 found ampullary stricture with edema, choledocho lithiasis. Had more stones removed at [facility]. CT shows abnml gas pattern whcih may represent ileus. pt had formed BM yesterday. MRCP pending - elevated LFTs - on admission Tbil 4.1, AST 293, ALT 479, ALP 378. MRCP pending. - leukocytosis, subjective fever - wbc 39.1 on flagyl and levaquin 11/21/2016 patient still was some abdominal pain less fever and elevated white count consistent with ascending cholangitis, ERCP was done no sphincterotomy was done because she already have one before and cannulation was achieved without difficulty there were multiple filling defects in the common bile duct balloon sweep of the duct revealed multiple stones and sludge the duct was flushed with saline and then included cholangiogram was negative for any filling defect so stent was not placed PLAN - monitor labs LFTs and CBC in the morning - continue abx - NPO until a.m. then if no symptom and liver function tests better may advance diet as tolerated - supportive care - further recs to follow Ian Arredondo MD Nov 21, 2016 09:31
--- NOTE | 2016-11-21 09:35 | GIPROC ---
[facility] [address] [facility]. [facility], [address] ERCP PROCEDURE REPORT EXAM DATE: 11/21/2016 PATIENT NAME: Brea Forde MR #: [id number] BIRTHDATE: 1930 ATTENDING: Ian Arredondo MD ORDER #: [id number] ALODIZE MACHINE OPERATOR: Lucius Varela and Terra Muniz STATUS: inpatient INDICATIONS: The patient is a 86 yr old female here for an ERCP due to abdominal pain of suspected biliary origin and Fever Leukocytosis PROCEDURE PERFORMED: ERCP, Level 2 ERCP with removal of calculus/calculi MEDICATIONS: None and Per Anesthesia. CONSENT: The patient understands the risks and benefits of the procedure and understands that these risks include, but are not limited to: sedation, allergic reaction, infection, perforation and/or bleeding. Alternative means of evaluation and treatment include, among others: physical exam, x-rays, and/or surgical intervention. The patient elects to proceed with this endoscopic procedure. medical equipment was checked for proper function. Hand hygiene and appropriate measures for infection prevention was taken. After the risks, benefits and alternatives of the procedure were thoroughly explained, Informed was verified, confirmed and timeout was successfully executed by the treatment team. With the patient in left semi-prone position, medications were administered intravenously.The Pentax [id number] was passed from the mouth into the esophagus and further advanced from the esophagus into the stomach. From stomach scope was directed to the second portion of the duodenum. Major papilla was aligned with the duodenoscope. The scope position was confirmed fluoroscopically. Rest of the findings/therapeutics are given below. The scope was then completely withdrawn from the patient and the procedure completed. The pulse, BP, and O2 saturation were monitored and documented by the physician and the nursing staff throughout the entire procedure. The patient was cared for as planned according to standard protocol. The patient was then discharged to recovery in stable condition and with appropriate post procedure care. The ampulla was located the second portion of the duodenum. There was evidence of prior sphincterotomy. Three stones were seen in the major papilla. Using a stone extraction balloon the bile duct was swept several times. Three stones were removed from the bile duct successfully. ADVERSE EVENT: There were no complications. IMPRESSIONS: The ampulla revealed a prior sphincterotomy RECOMMENDATIONS: Continue antibiotic Keep nothing by mouth until the morning LFTs and CBC in the morning REPEAT EXAM: As needed Ian Arredondo MD eSigned: Ian Arredondo MD 11/21/2016 9:35 AM cc:
[2016-11-21] MEDS ORDERED: PROPOFOL 200 MG/20 ML AMP IV PUSH ONE (09:38)
[2016-11-21] MEDS ORDERED: DO NOT ADM ANY ANTICOAGULANT DRUGS PRN (09:43)
[2016-11-21] MEDS ORDERED: PHENYLEPH/NS 1000 MCG/10 ML SYR ONE (09:49)
[2016-11-21] MEDS ORDERED: *RESP: ALBUTEROL 2.5 MG/3 ML NEB (PRN) PERIprocedural Use ONLY NEB ONE (10:29)
[2016-11-21] MEDS: LEVOFLOXACIN 500 MG PREMIX INJ 100 ML IV SCH (11:50)
[2016-11-21] MEDS: ACETAMINOPHEN/HYDROcodone 325 MG/5 MG TAB PO PRN ×2 (12:00→21:16)
--- NOTE | 2016-11-21 13:52 | RADRPT ---
EXAM DATE/TIME: 11/21/2016 10:44 [place] COMPARISON: GI LAB ERCP, September 24, 2014, 17:28. INDICATIONS : Obstruction, balloon sweep and stone removal. FLUORO TIME: 3.18 minutes IMAGE COUNT: 3 CONTRAST: Instilled by Ordering Physician MEDICAL HISTORY : None. SURGICAL HISTORY : None. ENCOUNTER: Initial ACUITY: 1 day PAIN SCORE: Non-responsive. LOCATION: Right lower quadrant FINDINGS: An ERCP was performed by the ordering physician. The images demonstrate incomplete filling of the common duct without residual stones. CONCLUSION: ERCP as above. Reymundo Wilburn MD FACR on November 21, 2016 at 13:50 Board Certified Radiologist. This report was verified electronically.
--- NOTE | 2016-11-21 14:43 | HHI.PR ---
Subjective Remarks Pt c/o continued abdominal pain. Objective Vitals Vital Signs Date Time Temp Pulse Resp B/P (MAP) Pulse Ox O2 Delivery O2 Flow Rate FiO2 11/21/16 12:00 98.1 86 18 120/69 (86) 92 11/21/16 10:45 97.7 84 22 110/56 (74) 97 Aerosol Mask 11/21/16 10:45 84 110/56 11/21/16 10:30 84 25 109/55 (73) 92 Aerosol Mask 11/21/16 10:15 83 24 107/49 (68) 94 Nasal Cannula 3 11/21/16 10:00 84 22 106/53 (70) 94 Nasal Cannula 3 11/21/16 09:45 98.3 86 18 108/54 (72) 94 Blow By 5 Nasal Cannula 11/21/16 08:00 97.8 91 18 105/52 (69) 92 11/21/16 04:01 91 11/21/16 04:00 97.8 93 20 96/52 (67) 93 11/21/16 00:03 97 11/21/16 00:00 97.9 94 22 95/53 (67) 91 11/20/16 22:25 161 11/20/16 22:00 98.2 86 18 115/63 (80) 96 11/20/16 21:30 97.3 96 20 141/64 (89) 96 11/20/16 21:16 95 11/20/16 21:14 96 127/86 11/20/16 21:00 97.3 74 19 127/86 (100) 95 11/20/16 19:25 95 Simple Mask 5.00 11/20/16 16:01 82 18 130/78 (95) 98 Nasal Cannula 3.00 11/21/16 11/21/16 11/22/16 15:00 23:00 07:00 Intake Total 786 ml Balance 786 ml IV Total 86 ml Other 700 ml Result Diagram: 11/20/16 1330 11/20/16 1330 Imaging Last Impressions GI Procedure 11/21/16 0000 Signed Impressions: Service Date/Time: Monday, November 21, 2016 10:44 - CONCLUSION: ERCP as above. Reymundo Wilburn MD FACR Chest CT 11/20/16 1407 Signed Impressions: Service Date/Time: Sunday, November 20, 2016 15:13 - CONCLUSION: 1. Severe underlying emphysema. 2. Status post median sternotomy with postsurgical changes. Maikol Paredes MD Abdomen/Pelvis CT 11/20/16 1407 Signed Impressions: Service Date/Time: Sunday, November 20, 2016 15:16 - CONCLUSION: 1. Abnormal bowel gas pattern which may represent an ileus. 2. Mild to moderate diverticulosis with no inflammatory change. 3. Emphysema and scarring in the lung bases. Maikol Paredes MD Chest X-Ray 11/20/16 1309 Signed Impressions: Service Date/Time: Sunday, November 20, 2016 13:24 - CONCLUSION: 1. Chronic interstitial changes with mild superimposed airspace disease in the left lower lung zone which may reflect atelectasis. Sam Buckner MD Objective Remarks GENERAL: This is a well-nourished, well-developed patient, in no apparent distress. CARDIOVASCULAR: Regular rate and rhythm without murmurs, gallops, or rubs. RESPIRATORY: Clear to auscultation. Breath sounds equal bilaterally. No wheezes , rales, or rhonchi. GASTROINTESTINAL: Abdomen soft, non-tender, nondistended. Normal active bowel sounds MUSCULOSKELETAL: Extremities without clubbing, cyanosis, or edema. NEURO: Alert & Oriented x4 to person, place, time, situation. Moves all ext x4 A/P Problem List: (1) Abdominal pain ICD Codes: R10.9 - Abdominal pain Status: Acute Plan: - Pt presents with c/o diffuse abdominal pain, n/v x 2d - CT abd/pelvis (11/20/16) --> possible ileus - elevated transaminases on admission - During patients 2014 [place] admission patient was diagnosed with choledocholithiasis. - Ultimately patient underwent ERCP performed 09/24/[address] Morrison. - Noted ampullary stricture with edema - Performed biliary biopsy and brushings - Perform sphincterotomy and placed biliary stent - Following ERCP patient's LFTs gradually improved patient made clinical improvement as well. Biopsy and brushings did not show carcinoma. 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 At that time these findings were discussed with radiology. Findings appear chronic and was noted on previous studies - During that hospitalization GI had recommended patient undergo outpatient EUS to further assess common bile duct stricture. EUS never done - [facility] (11/20/16 - present) - IVFs - Pt underwent ERCP (11/21/16) with Dr. Dayo Arredondo - multiple filling defects in the common bile duct - sweep of the duct revealed multiple stones and sludge the duct was flushed with saline - cholangiogram was negative for any filling defect so stent was not placed - norco/dilaudid prn - repeat BMP, LFTs in AM (2) CAD (coronary artery disease) ICD Codes: I25.10 - CAD (coronary artery disease) Status: Chronic Plan: - h/o CABG - recent Hospitalization at , last week - unable to obtain records thru [facility] EHR at this time - per pt she had lexiscan & echocardiogram - will obtain results - continue outpt medications - (3) Hypertension ICD Codes: I10 - Hypertension Status: Chronic Plan: - continue outpt medications (4) Transaminitis ICD Codes: R74.0 - Nonspecific elevation of levels of transaminase and lactic acid dehydrogenase [LDH] Status: Acute (5) Atrial flutter ICD Codes: I48.92 - Atrial flutter Status: Chronic Plan: - continue outpt medications Problem Qualifiers (1) Abdominal pain: Qualified Codes: R10.84 - Generalized abdominal pain (2) CAD (coronary artery disease): Qualified Codes: I25.10 - Atherosclerotic heart disease of [place] coronary artery without angina pectoris (3) Hypertension: Qualified Codes: I10 - Essential (primary) hypertension (4) Atrial flutter: Qualified Codes: I48.92 - Unspecified atrial flutter Yann Armstrong DO Nov 21, 2016 14:43
[2016-11-21 20:37] LABS: AUTOMATED NEUTROPHIL # 22.9 TH/MM3 (1.8-7.7); BASOPHIL % 0.2 % (0.0-2.0); EOSINOPHIL # 0.7 TH/MM3 (0-0.4); EOSINOPHIL % 2.6 % (0.0-4.0); HEMATOCRIT 37.4 % (35.0-46.0); LYMPH % 1.4 % (9.0-44.0); LYMPHOCYTE # 0.4 TH/MM3 (1.0-4.8); MEAN CELL VOLUME 82.7 FL (80.0-100.0); MEAN CORPUSCULAR HEMOGLOBIN 27.2 PG (27.0-34.0); MEAN CORPUSCULAR HGB CONC 32.9 % (32.0-36.0); MONO % 11.6 % (0.0-8.0); NEUT % 84.2 % (16.0-70.0); PLATELET COUNT 106 TH/MM3 (150-450); RED BLOOD COUNT 4.52 MIL/MM3 (4.00-5.30); RED CELL DISTRIBUTION WIDTH 16.4 % (11.6-17.2); WHITE BLOOD COUNT 27.2 TH/MM3 (4.0-11.0)
[2016-11-21 20:58] LABS: HEMO FLAGS AUTO DIFF
[2016-11-21 21:04] LABS: PROTHROMBIN TIME - PATIENT 11.5 SEC (9.8-11.6)
[2016-11-21 21:10] LABS: BICARBONATE 21.1 MEQ/L (21.0-32.0); MAGNESIUM 1.7 MG/DL (1.5-2.5); POTASSIUM 3.7 MEQ/L (3.5-5.1)
[2016-11-21] MEDS: ATORVASTATIN 80 MG TAB PO SCH (21:14)
[2016-11-21] MEDS: AMITRIPTYLINE HCL 10 MG TAB PO SCH (21:16)
[2016-11-21 21:18] LABS: INDIRECT BILIRUBIN 1.2 MG/DL (0.0-0.8); TOTAL BILIRUBIN ADULT 3.8 MG/DL (0.2-1.0)
--- NOTE | 2016-11-21 21:30 | EKG ---
Date Performed: 11/20/2016 Time Performed: 21:39:06 PTAGE: 86 years EKG: Sinus rhythm WITH FREQUENT SUPRAVENTRICULAR PREMATURE COMPLEXES DELAYED R WAVE PROGRESSION MILD IVCD ABNORMAL RHY THM ECG PREVIOUS TRACING : 11/20/2016 13.33 Compared to prior tracing no significant change DOCTOR: Pablito Rivers Interpretating Date/Time 11/21/2016 21:29:40
[2016-11-21 21:47] LABS: BANDS 4 % (0-6); METAMYELOCYTES 2 % (0-1); NEUTROPHIL # MANUAL DIFF 23.1 TH/MM3 (1.8-7.7); POLYS (SEG NEUTROPHILS) 79 % (16-70); WBC DIFF SAMPLE 100
[2016-11-21 21:48] LABS: OVALOCYTES 1+ (NORMAL); TEARDROP RBCS 1+ (NORMAL)
[2016-11-21 21:49] LABS: ACANTHOCYTES 2+ (NORMAL); PLATELET ESTIMATE SMEAR LOW (NORMAL); PLATELET MORPHOLOGY ENLARGED (NORMAL); SCAN/DIFF FINAL DIFF MANUAL
--- NOTE | 2016-11-21 21:53 | EKG ---
Date Performed: 11/20/2016 Time Performed: 13:33:18 PTAGE: 86 years EKG: Sinus rhythm WITH FREQUENT SUPRAVENTRICULAR PREMATURE COMPLEXES POSSIBLE ANTERIOR MYOCARDIAL INFARCTION ABNORMAL ECG PREVIOUS TRACING : 09/30/2014 15.39 Compared to the previous tracing a fib no longer present DOCTOR: Pablito Rivers Interpretating Date/Time 11/21/2016 21:52:52
[2016-11-21] MEDS: TEMAZEPAM 15 MG CAP PO PRN (22:38)
[2016-11-22] VITALS (8 sets, daily range): BP systolic 113–145; BP diastolic 56–66; PULSE 69–101; RESP 18–21; TEMP 97.2–97.9; O2SAT 91–94
[2016-11-22] MEDS: NS + KCL 20 MEQ INJ 1,000 ML IV SCH ×2 (01:44→17:18)
[2016-11-22] MEDS: CILOSTAZOL 100 MG TAB PO SCH ×2 (08:45→21:42)
[2016-11-22] MEDS: PANTOPRAZOLE SOD 20 MG DELAYED RELEASE TAB PO SCH ×2 (08:45→21:42)
[2016-11-22] MEDS: ASPIRIN 81 MG CHEW TAB CHEW SCH (08:45)
[2016-11-22] MEDS: NIFEdipine 60 MG SUSTAINED RELEASE TAB PO SCH (08:45)
[2016-11-22] MEDS: ACETAMINOPHEN/HYDROcodone 325 MG/5 MG TAB PO PRN ×4 (08:46→21:43)
[2016-11-22] MEDS: LEVOFLOXACIN 500 MG PREMIX INJ 100 ML IV SCH (08:46)
[2016-11-22] MEDS: metroNIDAZOLE 500 MG INJ 100 ML IV SCH ×2 (08:47→17:19)
[2016-11-22] MEDS: SODIUM CHLORIDE 0.9% FLUSH 10 ML FLUSH IV FLUSH SCH ×2 (09:00→21:43)
[2016-11-22 09:17] LABS: HEMATOCRIT 38.8 % (35.0-46.0); MEAN CELL VOLUME 83.2 FL (80.0-100.0); MEAN CORPUSCULAR HEMOGLOBIN 27.3 PG (27.0-34.0); MEAN CORPUSCULAR HGB CONC 32.8 % (32.0-36.0); PLATELET COUNT 112 TH/MM3 (150-450); RED BLOOD COUNT 4.66 MIL/MM3 (4.00-5.30); RED CELL DISTRIBUTION WIDTH 16.2 % (11.6-17.2); WHITE BLOOD COUNT 26.1 TH/MM3 (4.0-11.0)
[2016-11-22 09:27] LABS: HEMO FLAGS AUTO DIFF
[2016-11-22 09:44] LABS: BICARBONATE 19.7 MEQ/L (21.0-32.0); MAGNESIUM 1.8 MG/DL (1.5-2.5)
[2016-11-22 09:47] LABS: INDIRECT BILIRUBIN 0.6 MG/DL (0.0-0.8)
[2016-11-22 10:19] LABS: BANDS 2 % (0-6); NEUTROPHIL # MANUAL DIFF 24.3 TH/MM3 (1.8-7.7); OVALOCYTES 1+ (NORMAL); PLATELET ESTIMATE SMEAR LOW (NORMAL); PLATELET MORPHOLOGY ENLARGED (NORMAL); POLYS (SEG NEUTROPHILS) 91 % (16-70); SCAN/DIFF FINAL DIFF MANUAL; WBC DIFF SAMPLE 100
[2016-11-22 10:20] LABS: ACANTHOCYTES 2+ (NORMAL); KERATOCYTES OCC (NORMAL)
[2016-11-22] MEDS: POTASSIUM CHLOR 20 MEQ PREMIX 100 ML IV SCH ×2 (12:51→17:17)
[2016-11-22] MEDS: HYDROmorphone HCL PF 1 MG/ML VIAL IV PUSH PRN (13:56)
--- NOTE | 2016-11-22 14:10 | HHI.PR ---
Subjective Remarks Patient reports abdominal pain continued did required Dilaudid IV x 1 today feels hungry and is requesting to eat denies nausea or vomiting Objective Vitals Vital Signs Date Time Temp Pulse Resp B/P (MAP) Pulse Ox O2 Delivery O2 Flow Rate FiO2 11/22/16 12:00 97.4 69 18 113/60 (77) 92 11/22/16 10:30 92 Nasal Cannula 4.00 11/22/16 08:00 97.2 101 20 145/66 (92) 91 11/22/16 04:00 97.6 94 21 132/57 (82) 94 11/22/16 00:00 97.9 98 20 138/63 (88) 93 11/22/16 00:00 Nasal Cannula 4.00 11/21/16 20:00 97.9 95 23 123/57 (79) 95 11/21/16 19:30 94 11/21/16 19:30 95 Nasal Cannula 4.00 11/21/16 19:30 94 11/21/16 16:00 98.0 91 18 138/63 (88) 90 11/21/16 15:55 88 11/21/16 15:44 93 Nasal Cannula 4.00 11/21/16 15:40 92 Nasal Cannula 5.00 11/21/16 15:04 88 Result Diagram: 11/22/1681211/22/16812 Other Results Laboratory Tests Test 11/20/16 13:30 11/20/16 19:06 11/21/16 19:57 11/22/16 08:13 White Blood Count 39.1 TH/MM3 27.2 TH/MM3 26.1 TH/MM3 Red Blood Count 5.34 MIL/MM3 4.52 MIL/MM3 4.66 MIL/MM3 Hemoglobin 14.4 GM/DL 12.3 GM/DL 12.7 GM/DL Hematocrit 43.4 % 37.4 % 38.8 % Mean Corpuscular Volume 81.3 FL 82.7 FL 83.2 FL Mean Corpuscular Hemoglobin 26.9 PG 27.2 PG 27.3 PG Mean Corpuscular Hemoglobin Concent 33.1 % 32.9 % 32.8 % Red Cell Distribution Width 16.4 % 16.4 % 16.2 % Platelet Count 129 TH/MM3 106 TH/MM3 112 TH/MM3 Mean Platelet Volume 11.4 FL 12.2 FL 11.2 FL Neutrophils (%) (Auto) 89.5 % 84.2 % Lymphocytes (%) (Auto) 1.6 % 1.4 % Monocytes (%) (Auto) 7.4 % 11.6 % Eosinophils (%) (Auto) 0.5 % 2.6 % Basophils (%) (Auto) 1.0 % 0.2 % Neutrophils # (Auto) 35.1 TH/MM3 22.9 TH/MM3 Lymphocytes # (Auto) 0.6 TH/MM3 0.4 TH/MM3 Monocytes # (Auto) 2.9 TH/MM3 3.1 TH/MM3 Eosinophils # (Auto) 0.2 TH/MM3 0.7 TH/MM3 Basophils # (Auto) 0.4 TH/MM3 0.0 TH/MM3 CBC Comment AUTO DIFF AUTO DIFF AUTO DIFF Differential Total Cells Counted 100 100 100 Neutrophils % (Manual) 71 % 79 % 91 % Band Neutrophils % 27 % 4 % 2 % Monocytes % 2 % 12 % 5 % Neutrophils # (Manual) 38.3 TH/MM3 23.1 TH/MM3 24.3 TH/MM3 Differential Comment FINAL DIFF MANUAL FINAL DIFF MANUAL FINAL DIFF MANUAL Platelet Estimate LOW LOW LOW Platelet Morphology Comment NORMAL ENLARGED ENLARGED Ovalocytes 1+ 1+ 1+ Acanthocytes 2+ 2+ 2+ Keratocytes 1+ OCC Prothrombin Time 12.8 SEC 11.5 SEC Prothromb Time International Ratio 1.2 RATIO 1.0 RATIO Activated Partial Thromboplast Time 31.5 SEC Blood Urea Nitrogen 32 MG/DL 35 MG/DL 32 MG/DL Creatinine 1.59 MG/DL 1.58 MG/DL 1.25 MG/DL Random Glucose 132 MG/DL 93 MG/DL 87 MG/DL Total Protein 8.6 GM/DL 7.3 GM/DL 7.2 GM/DL Albumin 3.7 GM/DL 2.7 GM/DL 2.6 GM/DL Calcium Level 9.5 MG/DL 8.8 MG/DL 8.7 MG/DL Alkaline Phosphatase 378 U/L 334 U/L 310 U/L Aspartate Amino Transf (AST/SGOT) 293 U/L 109 U/L 83 U/L Alanine Aminotransferase (ALT/SGPT) 479 U/L 231 U/L 197 U/L Total Bilirubin 4.1 MG/DL 3.8 MG/DL 2.0 MG/DL Sodium Level 134 MEQ/L 139 MEQ/L 133 MEQ/L Potassium Level 3.2 MEQ/L 3.7 MEQ/L 3.0 MEQ/L Chloride Level 98 MEQ/L 107 MEQ/L 101 MEQ/L Carbon Dioxide Level 23.2 MEQ/L 21.1 MEQ/L 19.7 MEQ/L Anion Gap 13 MEQ/L 11 MEQ/L 12 MEQ/L Estimat Glomerular Filtration Rate 31 ML/MIN 31 ML/MIN 41 ML/MIN Total Creatine Kinase 96 U/L Troponin I 0.22 NG/ML B-Type Natriuretic Peptide 586 PG/ML Lipase 49 U/L Urine Color DARK-YELLOW Urine Turbidity HAZY Urine pH 6.0 Urine Specific [place] 1.017 Urine Protein 100 mg/dL Urine Glucose (UA) NEG mg/dL Urine Ketones NEG mg/dL Urine Occult Blood SMALL Urine Nitrite NEG Urine Bilirubin SMALL Urine Urobilinogen 2.0 MG/DL Urine Leukocyte Esterase NEG Urine RBC 1 /hpf Urine WBC 2 /hpf Urine Squamous Epithelial Cells 10 /hpf Urine Hyaline Casts 1 /lpf Microscopic Urinalysis Comment CULT NOT INDICATED Lymphocytes % 3 % 2 % Metamyelocytes 2 % Tear Drop Cells 1+ Magnesium Level 1.7 MG/DL 1.8 MG/DL Direct Bilirubin 2.6 MG/DL 1.4 MG/DL Indirect Bilirubin 1.2 MG/DL 0.6 MG/DL Amylase Level 89 U/L Imaging Last Impressions GI Procedure 11/21/16 0000 Signed Impressions: Service Date/Time: Monday, November 21, 2016 10:44 - CONCLUSION: ERCP as above. Reymundo Wilburn MD FACR Chest CT 11/20/16 1407 Signed Impressions: Service Date/Time: Sunday, November 20, 2016 15:13 - CONCLUSION: 1. Severe underlying emphysema. 2. Status post median sternotomy with postsurgical changes. Maikol Paredes MD Abdomen/Pelvis CT 11/20/16 1407 Signed Impressions: Service Date/Time: Sunday, November 20, 2016 15:16 - CONCLUSION: 1. Abnormal bowel gas pattern which may represent an ileus. 2. Mild to moderate diverticulosis with no inflammatory change. 3. Emphysema and scarring in the lung bases. Maikol Paredes MD Chest X-Ray 11/20/16 1309 Signed Impressions: Service Date/Time: [place], November 20, 2016 13:24 - CONCLUSION: 1. Chronic interstitial changes with mild superimposed airspace disease in the left lower lung zone which may reflect atelectasis. Sam Buckner MD Objective Remarks GENERAL: This is a well-nourished, well-developed patient, in no apparent distress. CARDIOVASCULAR: Regular rate and rhythm without murmurs, gallops, or rubs. RESPIRATORY: Clear to auscultation. Breath sounds equal bilaterally. No wheezes , rales, or rhonchi. GASTROINTESTINAL: Abdomen soft, nondistended. Normal active bowel sounds MUSCULOSKELETAL: Extremities without clubbing, cyanosis, or edema. NEURO: Alert & Oriented x4 to person, place, time, situation. Moves all ext x4 A/P Problem List: (1) Abdominal pain ICD Codes: R10.9 - Abdominal pain Status: Acute Plan: - Pt presents with c/o diffuse abdominal pain, n/v x 2d - CT abd/pelvis (11/20/16) --> possible ileus - elevated transaminases on admission - During patients 2014 [place] admission patient was diagnosed with choledocholithiasis. - Ultimately patient underwent ERCP performed 09/24/[address] Morrison. - Noted ampullary stricture with edema - Performed biliary biopsy and brushings - Perform sphincterotomy and placed biliary stent - Following ERCP patient's LFTs gradually improved patient made clinical improvement as well. Biopsy and brushings did not show carcinoma. 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 At that time these findings were discussed with radiology. Findings appear chronic and was noted on previous studies - During that hospitalization GI had recommended patient undergo outpatient EUS to further assess common bile duct stricture. EUS never done - [facility] (11/20/16 - present) - IVFs - Pt underwent ERCP (11/21/16) with Dr. Dayo Arredondo - multiple filling defects in the common bile duct - sweep of the duct revealed multiple stones and sludge the duct was flushed with saline - cholangiogram was negative for any filling defect so stent was not placed - discussed with GI will advance to clear liquids - norco/dilaudid prn - LFT trending down but still elevated, amylase 89. lipase pending - repeat CMP and lipase in AM in AM Potassium 3.0 replaced with potassium 40 meq IV and change IV fluid to NS with 20 meq (2) CAD (coronary artery disease) ICD Codes: I25.10 - CAD (coronary artery disease) Status: Chronic Plan: - h/o CABG - recent Hospitalization at , last week - unable to obtain records thru [facility] EHR at this time - per pt she had lexiscan & echocardiogram - will obtain results - continue outpt medications - (3) Hypertension ICD Codes: I10 - Hypertension Status: Chronic Plan: - continue outpt medications (4) Transaminitis ICD Codes: R74.0 - Nonspecific elevation of levels of transaminase and lactic acid dehydrogenase [LDH] Status: Acute (5) Atrial flutter ICD Codes: I48.92 - Atrial flutter Status: Chronic Plan: - continue outpt medications Assessment and Plan Patient examined. Assessment and plan formulated with Vale Ramirez PA-C. I agree with the above. Problem Qualifiers (1) Abdominal pain: Qualified Codes: R10.84 - Generalized abdominal pain (2) CAD (coronary artery disease): Qualified Codes: I25.10 - Atherosclerotic heart disease of [place] coronary artery without angina pectoris (3) Hypertension: Qualified Codes: I10 - Essential (primary) hypertension (4) Atrial flutter: Qualified Codes: I48.92 - Unspecified atrial flutter Vale Ramirez Nov 22, 2016 14:10 Yann Armstrong DO Nov 26, 2016 14:38
[2016-11-22] MEDS ORDERED: SODIUM CHLOR 0.9% IV SCH (14:15)
[2016-11-22] MEDS ORDERED: POTASSIUM CHLORIDE IV SCH (14:15)
--- NOTE | 2016-11-22 16:01 | HHI.GIFU ---
Subjective Remarks Pt resting in bed, asking for something to drink. Still with abd pain but says its better than yesterday. Nausea better today as well. (Radha Jamil) Objective Vitals I&O Vital Signs Date Time Temp Pulse Resp B/P (MAP) Pulse Ox O2 Delivery O2 Flow Rate FiO2 11/22/16 12:00 97.4 69 18 113/60 (77) 92 11/22/16 10:30 92 Nasal Cannula 4.00 11/22/16 08:00 97.2 101 20 145/66 (92) 91 11/22/16 04:00 97.6 94 21 132/57 (82) 94 11/22/16 00:00 97.9 98 20 138/63 (88) 93 11/22/16 00:00 Nasal Cannula 4.00 11/21/16 20:00 97.9 95 23 123/57 (79) 95 11/21/16 19:30 94 11/21/16 19:30 95 Nasal Cannula 4.00 11/21/16 19:30 94 11/21/16 16:00 98.0 91 18 138/63 (88) 90 I/O 11/21/16 11/21/16 11/21/16 11/22/16 11/22/16 11/22/16 07:00 15:00 23:00 07:00 15:00 23:00 Intake Total 1185 ml 786 ml 0 ml 600 ml Output Total 400 ml 600 ml Balance 785 ml 786 ml 0 ml 0 ml Intake Oral 0 ml 0 ml 0 ml IV Total 1185 ml 86 ml 600 ml Other 700 ml Output Urine Total 400 ml 600 ml # Voids 2 # Bowel Movements 0 0 0 Laboratory Laboratory Tests Test 11/21/16 19:57 11/22/16 08:13 White Blood Count 27.2 26.1 Red Blood Count 4.52 4.66 Hemoglobin 12.3 12.7 Hematocrit 37.4 38.8 Mean Corpuscular Volume 82.7 83.2 Mean Corpuscular Hemoglobin 27.2 27.3 Mean Corpuscular Hemoglobin Concent 32.9 32.8 Red Cell Distribution Width 16.4 16.2 Platelet Count 106 112 Mean Platelet Volume 12.2 11.2 Neutrophils (%) (Auto) 84.2 Lymphocytes (%) (Auto) 1.4 Monocytes (%) (Auto) 11.6 Eosinophils (%) (Auto) 2.6 Basophils (%) (Auto) 0.2 Neutrophils # (Auto) 22.9 Lymphocytes # (Auto) 0.4 Monocytes # (Auto) 3.1 Eosinophils # (Auto) 0.7 Basophils # (Auto) 0.0 CBC Comment AUTO DIFF AUTO DIFF Differential Total Cells Counted 100 100 Neutrophils % (Manual) 79 91 Band Neutrophils % 4 2 Lymphocytes % 3 2 Monocytes % 12 5 Neutrophils # (Manual) 23.1 24.3 Metamyelocytes 2 Differential Comment FINAL DIFF MANUAL FINAL DIFF MANUAL Platelet Estimate LOW LOW Platelet Morphology Comment ENLARGED ENLARGED Tear Drop Cells 1+ Ovalocytes 1+ 1+ Acanthocytes 2+ 2+ Prothrombin Time 11.5 Prothromb Time International Ratio 1.0 Blood Urea Nitrogen 35 32 Creatinine 1.58 1.25 Random Glucose 93 87 Total Protein 7.3 7.2 Albumin 2.7 2.6 Calcium Level 8.8 8.7 Magnesium Level 1.7 1.8 Alkaline Phosphatase 334 310 Aspartate Amino Transf (AST/SGOT) 109 83 Alanine Aminotransferase (ALT/SGPT) 231 197 Total Bilirubin 3.8 2.0 Direct Bilirubin 2.6 1.4 Sodium Level 139 133 Potassium Level 3.7 3.0 Chloride Level 107 101 Carbon Dioxide Level 21.1 19.7 Anion Gap 11 12 Estimat Glomerular Filtration Rate 31 41 Indirect Bilirubin 1.2 0.6 Keratocytes OCC Amylase Level 89 Physical Exam HEENT: right eye prosthesis; normocephalic; atraumatic; no jaundice. CHEST: CTA CARDIAC: RRR + murmur ABDOMEN: Soft, nondistended, diffusely TTP; no hepatosplenomegaly; bowel sounds are present in all four quadrants. EXTREMITIES: No clubbing, cyanosis, or edema. SKIN: Normal; no rash; no jaundice. HOUSEKEEPING AID: No focal deficits; alert and oriented times three. 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 Had more stones removed at [facility]. CT shows abnml gas pattern whcih may represent ileus. pt had formed BM yesterday. s/p ERCP --> ERCP was done no sphincterotomy was done because she already have one before and cannulation was achieved without difficulty there were multiple filling defects in the common bile duct balloon sweep of the duct revealed multiple stones and sludge the duct was flushed with saline and then included cholangiogram was negative for any filling defect so stent was not place - elevated LFTs - on admission Tbil 4.1, AST 293, ALT 479, ALP 378. 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
[2016-11-22] MEDS: ENOXAPARIN SODIUM 30 MG/0.3 ML SYRINGE SQ SCH (17:15)
[2016-11-22] MEDS ORDERED: BISACODYL 10 MG SUPP RECTAL ONE (19:15)
[2016-11-22] MEDS: ATORVASTATIN 80 MG TAB PO SCH (21:43)
[2016-11-22] MEDS: AMITRIPTYLINE HCL 10 MG TAB PO SCH (21:45)
[2016-11-22] MEDS: URSODIOL 300 MG CAP PO SCH (21:45)
[2016-11-23] VITALS (8 sets, daily range): BP systolic 104–131; BP diastolic 53–62; PULSE 97–108; RESP 18–30; TEMP 97–97.9; O2SAT 90–100
[2016-11-23] MEDS ORDERED: POTASSIUM CHLORIDE IV PRN (04:45)
[2016-11-23] MEDS ORDERED: LACTATED RINGER S IV PRN (04:45)
[2016-11-23] MEDS: SODIUM CHLORIDE 0.9% FLUSH 10 ML FLUSH IV FLUSH SCH ×2 (07:39→20:42)
[2016-11-23] MEDS: LEVOFLOXACIN 500 MG PREMIX INJ 100 ML IV SCH (08:53)
[2016-11-23] MEDS: ASPIRIN 81 MG CHEW TAB CHEW SCH (08:53)
[2016-11-23] MEDS: NIFEdipine 60 MG SUSTAINED RELEASE TAB PO SCH (08:53)
[2016-11-23] MEDS: PANTOPRAZOLE SOD 20 MG DELAYED RELEASE TAB PO SCH ×2 (08:53→20:41)
[2016-11-23] MEDS: ACETAMINOPHEN/HYDROcodone 325 MG/5 MG TAB PO PRN ×2 (08:53→15:54)
[2016-11-23] MEDS: CILOSTAZOL 100 MG TAB PO SCH ×2 (08:53→20:41)
[2016-11-23] MEDS: NS + KCL 20 MEQ INJ 1,000 ML IV SCH (08:54)
[2016-11-23] MEDS: metroNIDAZOLE 500 MG INJ 100 ML IV SCH ×4 (08:54→23:19)
[2016-11-23] MEDS: URSODIOL 300 MG CAP PO SCH ×2 (08:54→23:20)
[2016-11-23 10:55] LABS: ANION GAP 11 MEQ/L (5-15); AST (GOT) 64 U/L (15-37); BICARBONATE 19.8 MEQ/L (21.0-32.0); BLOOD UREA NITROGEN 25 MG/DL (7-18); CHLORIDE 107 MEQ/L (98-107); GLOMERULAR FILTRATION RATE 48 ML/MIN (>89); POTASSIUM 3.6 MEQ/L (3.5-5.1); SODIUM (NA) 138 MEQ/L (136-145)
[2016-11-23 10:56] LABS: ALT (GPT) 139 U/L (10-53)
[2016-11-23 10:58] LABS: ALKALINE PHOSPHATASE 297 U/L (45-117); TOTAL BILIRUBIN ADULT 1.1 MG/DL (0.2-1.0)
[2016-11-23 11:07] LABS: HEMATOCRIT 35.7 % (35.0-46.0); MEAN CELL VOLUME 82.9 FL (80.0-100.0); MEAN CORPUSCULAR HEMOGLOBIN 26.6 PG (27.0-34.0); MEAN CORPUSCULAR HGB CONC 32.1 % (32.0-36.0); PLATELET COUNT 114 TH/MM3 (150-450); RED BLOOD COUNT 4.31 MIL/MM3 (4.00-5.30); RED CELL DISTRIBUTION WIDTH 16.4 % (11.6-17.2); WHITE BLOOD COUNT 29.2 TH/MM3 (4.0-11.0)
[2016-11-23 11:17] LABS: REVIEW FLAG FINAL
[2016-11-23] MEDS: HYDROmorphone HCL PF 1 MG/ML VIAL IV PUSH PRN ×2 (11:49→20:41)
[2016-11-23] MEDS ORDERED: RESP: ALBUTEROL 2.5 MG/IPRATROPIUM 0.5 MG NEB (SCH) NEB STA (12:31)
[2016-11-23] MEDS ORDERED: FUROSEMIDE 100 MG/10 ML VIAL IV PUSH STA (12:50)
[2016-11-23] MEDS ORDERED: FUROSEMIDE 40 MG/4 ML VIAL ONE (12:51)
--- NOTE | 2016-11-23 12:53 | HHI.PR ---
Subjective Remarks Received call from nurse that patient having difficulty breathing and has been placed on a nonrebreather saturating 94-96% urgently when to evaluate patient who reports, "I don't feel good." C/O SOB- which has started in the past few hours Objective Vitals Vital Signs Date Time Temp Pulse Resp B/P (MAP) Pulse Ox O2 Delivery O2 Flow Rate FiO2 11/23/16 12:30 94 Non-Rebreather 15.00 11/23/16 08:05 Nasal Cannula 4.00 11/23/16 08:00 97.5 100 20 108/54 (72) 90 11/23/16 04:00 97.3 97 18 104/53 (70) 90 11/23/16 00:00 97.6 104 20 131/58 (82) 92 11/22/16 21:01 Nasal Cannula 4.00 11/22/16 20:15 91 11/22/16 20:15 95 Nasal Cannula 4.00 11/22/16 20:15 91 11/22/16 20:00 97.7 99 20 122/59 (80) 91 11/22/16 16:00 97.5 95 18 118/56 (76) 91 Result Diagram: 11/23/16 0917 11/23/16 0917 Other Results Laboratory Tests Test 11/20/16 13:30 11/20/16 19:06 11/21/16 19:57 11/22/16 08:13 White Blood Count 39.1 TH/MM3 27.2 TH/MM3 26.1 TH/MM3 Red Blood Count 5.34 MIL/MM3 4.52 MIL/MM3 4.66 MIL/MM3 Hemoglobin 14.4 GM/DL 12.3 GM/DL 12.7 GM/DL Hematocrit 43.4 % 37.4 % 38.8 % Mean Corpuscular Volume 81.3 FL 82.7 FL 83.2 FL Mean Corpuscular Hemoglobin 26.9 PG 27.2 PG 27.3 PG Mean Corpuscular Hemoglobin Concent 33.1 % 32.9 % 32.8 % Red Cell Distribution Width 16.4 % 16.4 % 16.2 % Platelet Count 129 TH/MM3 106 TH/MM3 112 TH/MM3 Mean Platelet Volume 11.4 FL 12.2 FL 11.2 FL Neutrophils (%) (Auto) 89.5 % 84.2 % Lymphocytes (%) (Auto) 1.6 % 1.4 % Monocytes (%) (Auto) 7.4 % 11.6 % Eosinophils (%) (Auto) 0.5 % 2.6 % Basophils (%) (Auto) 1.0 % 0.2 % Neutrophils # (Auto) 35.1 TH/MM3 22.9 TH/MM3 Lymphocytes # (Auto) 0.6 TH/MM3 0.4 TH/MM3 Monocytes # (Auto) 2.9 TH/MM3 3.1 TH/MM3 Eosinophils # (Auto) 0.2 TH/MM3 0.7 TH/MM3 Basophils # (Auto) 0.4 TH/MM3 0.0 TH/MM3 CBC Comment AUTO DIFF AUTO DIFF AUTO DIFF Differential Total Cells Counted 100 100 100 Neutrophils % (Manual) 71 % 79 % 91 % Band Neutrophils % 27 % 4 % 2 % Monocytes % 2 % 12 % 5 % Neutrophils # (Manual) 38.3 TH/MM3 23.1 TH/MM3 24.3 TH/MM3 Differential Comment FINAL DIFF MANUAL FINAL DIFF MANUAL FINAL DIFF MANUAL Platelet Estimate LOW LOW LOW Platelet Morphology Comment NORMAL ENLARGED ENLARGED Ovalocytes 1+ 1+ 1+ Acanthocytes 2+ 2+ 2+ Keratocytes 1+ OCC Prothrombin Time 12.8 SEC 11.5 SEC Prothromb Time International Ratio 1.2 RATIO 1.0 RATIO Activated Partial Thromboplast Time 31.5 SEC Blood Urea Nitrogen 32 MG/DL 35 MG/DL 32 MG/DL Creatinine 1.59 MG/DL 1.58 MG/DL 1.25 MG/DL Random Glucose 132 MG/DL 93 MG/DL 87 MG/DL Total Protein 8.6 GM/DL 7.3 GM/DL 7.2 GM/DL Albumin 3.7 GM/DL 2.7 GM/DL 2.6 GM/DL Calcium Level 9.5 MG/DL 8.8 MG/DL 8.7 MG/DL Alkaline Phosphatase 378 U/L 334 U/L 310 U/L Aspartate Amino Transf (AST/SGOT) 293 U/L 109 U/L 83 U/L Alanine Aminotransferase (ALT/SGPT) 479 U/L 231 U/L 197 U/L Total Bilirubin 4.1 MG/DL 3.8 MG/DL 2.0 MG/DL Sodium Level 134 MEQ/L 139 MEQ/L 133 MEQ/L Potassium Level 3.2 MEQ/L 3.7 MEQ/L 3.0 MEQ/L Chloride Level 98 MEQ/L 107 MEQ/L 101 MEQ/L Carbon Dioxide Level 23.2 MEQ/L 21.1 MEQ/L 19.7 MEQ/L Anion Gap 13 MEQ/L 11 MEQ/L 12 MEQ/L Estimat Glomerular Filtration Rate 31 ML/MIN 31 ML/MIN 41 ML/MIN Total Creatine Kinase 96 U/L Troponin I 0.22 NG/ML B-Type Natriuretic Peptide 586 PG/ML Lipase 49 U/L 67 U/L Urine Color DARK-YELLOW Urine Turbidity HAZY Urine pH 6.0 Urine Specific [place] 1.017 Urine Protein 100 mg/dL Urine Glucose (UA) NEG mg/dL Urine Ketones NEG mg/dL Urine Occult Blood SMALL Urine Nitrite NEG Urine Bilirubin SMALL Urine Urobilinogen 2.0 MG/DL Urine Leukocyte Esterase NEG Urine RBC 1 /hpf Urine WBC 2 /hpf Urine Squamous Epithelial Cells 10 /hpf Urine Hyaline Casts 1 /lpf Microscopic Urinalysis Comment CULT NOT INDICATED Lymphocytes % 3 % 2 % Metamyelocytes 2 % Tear Drop Cells 1+ Magnesium Level 1.7 MG/DL 1.8 MG/DL Direct Bilirubin 2.6 MG/DL 1.4 MG/DL Indirect Bilirubin 1.2 MG/DL 0.6 MG/DL Amylase Level 89 U/L Test 11/23/16 09:17 White Blood Count 29.2 TH/MM3 Red Blood Count 4.31 MIL/MM3 Hemoglobin 11.5 GM/DL Hematocrit 35.7 % Mean Corpuscular Volume 82.9 FL Mean Corpuscular Hemoglobin 26.6 PG Mean Corpuscular Hemoglobin Concent 32.1 % Red Cell Distribution Width 16.4 % Platelet Count 114 TH/MM3 Mean Platelet Volume 10.6 FL Blood Urea Nitrogen 25 MG/DL Creatinine 1.08 MG/DL Random Glucose 110 MG/DL Total Protein 7.0 GM/DL Albumin 2.5 GM/DL Calcium Level 8.3 MG/DL Alkaline Phosphatase 297 U/L Aspartate Amino Transf (AST/SGOT) 64 U/L Alanine Aminotransferase (ALT/SGPT) 139 U/L Total Bilirubin 1.1 MG/DL Sodium Level 138 MEQ/L Potassium Level 3.6 MEQ/L Chloride Level 107 MEQ/L Carbon Dioxide Level 19.8 MEQ/L Anion Gap 11 MEQ/L Estimat Glomerular Filtration Rate 48 ML/MIN Lipase 76 U/L Imaging Last Impressions GI Procedure 11/21/16 0000 Signed Impressions: Service Date/Time: Monday, November 21, 2016 10:44 - CONCLUSION: ERCP as above. Reymundo Wilburn MD FACR Chest CT 11/20/16 1407 Signed Impressions: Service Date/Time: Sunday, November 20, 2016 15:13 - CONCLUSION: 1. Severe underlying emphysema. 2. Status post median sternotomy with postsurgical changes. Maikol Paredes MD Abdomen/Pelvis CT 11/20/16 1407 Signed Impressions: Service Date/Time: Sunday, November 20, 2016 15:16 - CONCLUSION: 1. Abnormal bowel gas pattern which may represent an ileus. 2. Mild to moderate diverticulosis with no inflammatory change. 3. Emphysema and scarring in the lung bases. Maikol Paredes MD Chest X-Ray 11/20/16 1309 Signed Impressions: Service Date/Time: Sunday, November 20, 2016 13:24 - CONCLUSION: 1. Chronic interstitial changes with mild superimposed airspace disease in the left lower lung zone which may reflect atelectasis. Sam Buckner MD Objective Remarks GENERAL: This is a well-nourished, well-developed patient, in no apparent distress. CARDIOVASCULAR: Regular rate and rhythm without murmurs, gallops, or rubs. RESPIRATORY: Clear to auscultation. Breath sounds equal bilaterally. No wheezes , rales, or rhonchi. GASTROINTESTINAL: Abdomen soft, nondistended. Normal active bowel sounds MUSCULOSKELETAL: Extremities without clubbing, cyanosis, or edema. NEURO: Alert & Oriented x4 to person, place, time, situation. Moves all ext x4 A/P Problem List: (1) Abdominal pain ICD Codes: R10.9 - Abdominal pain Status: Acute Plan: - Pt presents with c/o diffuse abdominal pain, n/v x 2d - CT abd/pelvis (11/20/16) --> possible ileus - elevated transaminases on admission - During patients 2014 Stone admission patient was diagnosed with choledocholithiasis. - Ultimately patient underwent ERCP performed 09/24/[address] Morrison. - Noted ampullary stricture with edema - Performed biliary biopsy and brushings - Perform sphincterotomy and placed biliary stent - Following ERCP patient's LFTs gradually improved patient made clinical improvement as well. Biopsy and brushings did not show carcinoma. 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 At that time these findings were discussed with radiology. Findings appear chronic and was noted on previous studies - During that hospitalization GI had recommended patient undergo outpatient EUS to further assess common bile duct stricture. EUS never done - levaquin & flagyl (11/20/16 - present) - IVFs - Pt underwent ERCP (11/21/16) with Dr. Dayo Arredondo - multiple filling defects in the common bile duct - sweep of the duct revealed multiple stones and sludge the duct was flushed with saline - cholangiogram was negative for any filling defect so stent was not placed - discussed with GI will advance to clear liquids - norco/dilaudid prn - LFT trending down but still mildly elevated - repeat CMP and lipase in AM Potassium improved (2) CAD (coronary artery disease) ICD Codes: I25.10 - CAD (coronary artery disease) Status: Chronic Plan: - h/o CABG - recent Hospitalization at , last week - unable to obtain records thru [facility] EHR at this time - per pt she had lexiscan & echocardiogram - will obtain results - continue outpt medications - (3) Hypertension ICD Codes: I10 - Hypertension Status: Chronic Plan: - continue outpt medications (4) Transaminitis ICD Codes: R74.0 - Nonspecific elevation of levels of transaminase and lactic acid dehydrogenase [LDH] Status: Acute Plan: see above (5) Atrial flutter ICD Codes: I48.92 - Atrial flutter Status: Chronic Plan: - continue outpt medications (6) Respiratory distress ICD Codes: R06.00 - Dyspnea, unspecified Plan: Lasix 80mg IV STAT ABG: PH 7.37, pCO2 34, P02 85, bicarb 19 CXR reviewed defuse increased interstitial markings consistent with mild pulmonary vascular congestion Rechecked patient at 1550 patient continues to be tachypneic. Now with chills and visible shivering. concern for biliary sepsis blood culture x 2 ordered add rafael with pharmacy consult UA Will transfer to ICU and consult poultry grader for assistance Assessment and Plan Patient examined. Assessment and plan formulated with Vale Ramirez PA-C. I agree with the above. Pt clinically deteriorating with abdominal pain and worsening respiratory status. Pt transferred to ICU. Consult placed for CCM. Problem Qualifiers (1) Abdominal pain: Qualified Codes: R10.84 - Generalized abdominal pain (2) CAD (coronary artery disease): Qualified Codes: I25.10 - Atherosclerotic heart disease of [place] coronary artery without angina pectoris (3) Hypertension: Qualified Codes: I10 - Essential (primary) hypertension (4) Atrial flutter: Qualified Codes: I48.92 - Unspecified atrial flutter Vale Ramirez Nov 23, 2016 12:53 Yann Armstrong DO Nov 26, 2016 14:39
[2016-11-23 13:15] LABS: BLOOD GAS BASE EXCESS -5.4 mmol/L (-2-2); BLOOD GAS CARBOXYHEMOGLOBIN 1.6 % (0-4); BLOOD GAS HCO3 19 mmol/L (22-26); BLOOD GAS METHEMOGLOBIN 0.9 % (0-2); BLOOD GAS O2 HGB SATURATION 94 % (90-100); BLOOD GAS OXYGEN CONTENT 16.2 Vol % (12.0-20.0); BLOOD GAS PCO2 34 mmHg (38-42); BLOOD GAS PO2 85 mmHg (61-120); BLOOD GAS TOTAL HGB 12.2 G/DL (12.0-16.0); CRITICAL VALUE NO; DRAW SITE RT RADIAL; FIO2 100 %; LITER FLOW 15 L/M; NUMBER OF ARTERIAL PUNCTURES 1; OXYGEN DEVICE NRBR; STAT YES; TEMP CORR TO 98.6; ULNAR PULSE PRESENT
--- NOTE | 2016-11-23 14:22 | RADRPT ---
EXAM DATE/TIME: 11/23/2016 12:58 [facility] COMPARISON: CHEST SINGLE AP, November 20, 2016, 13:24. INDICATIONS : Patient experiencing shortness of breath. MEDICAL HISTORY : Cardiovascular disease. Cerebrovascular disease. Hypertension SURGICAL HISTORY : CABG. Hysterectomy. ENCOUNTER: Initial ACUITY: 4 - 6 days PAIN SCORE: 0/10 LOCATION: Bilateral upper chest FINDINGS: Median wires are noted status-post cardiac surgery. Diffuse increased interstitial markings are note d bilaterally consistent with mild pulmonary edema versus pneumonia superimposed on chronic interstit ial disease. The heart is stable. CONCLUSION: 1. Diffuse increased interstitial markings consistent with mild pulmonary vascular congestion versus pneumonia superimposed on chronic interstitial disease. Hasmukh Oakes MD on November 23, 2016 at 13:57 Board Certified Radiologist. This report was verified electronically.
[2016-11-23] MEDS: ENOXAPARIN SODIUM 30 MG/0.3 ML SYRINGE SQ SCH (15:55)
[2016-11-23] MEDS ORDERED: Vancomycin Consult Pharmacy 1 EA OTHER SCH (16:00)
--- NOTE | 2016-11-23 17:57 | PD.CONS ---
[facility] Service Critical Care Medicine Consult Requested By Hospitalist Reason for Consult Critical care Primary Care Physician Thee Lambert MD History of Present Illness 86 y/o woman developed worsening SOB this afternoon associated with marked leukocytosis. Recent biliary instrumentation for obstruction 48 hours ago and probable sepsis. On appropriate antibiotics. Requiring NRBM now for oxygenation to 97%. Visibly labored breathing. CXR with interstitial edema. EF 35% 2014. Move to ICU. Review of Systems Constitutional: COMPLAINS OF: Fever Respiratory: COMPLAINS OF: Shortness of breath Past Family Social History Allergies: Coded Allergies: penicillin G (Unverified Allergy, Severe, HIVES, 10/23/16) Past Medical History Past Medical History 1. Coronary disease. 2. Three-vessel coronary artery bypass grafting in 2005. 3. Hypertension. 4. Hyperlipidemia. 5. GERD. 6. Past history of tobacco abuse. 7. Denies diabetes. 8. Choledocholithiasis, status post ERCP with stenting Past Surgical History 1. Three vessel coronary artery bypass grafting in 2005. 2. 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 3. Bladder suspension. 4. Hysterectomy. 5) ERCP 2014 Reported Medications Reported Meds & Active Scripts Active Allergies: Coded Allergies: penicillin G (Unverified Allergy, Severe, HIVES, 10/23/16) Family History The patient states she is adopted and does not know her family history. Social History - The patient quit smoking 2004, prior to that she smoked one pack ofcigarettes daily for 63 years. 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 Physical Exam Vital Signs Vital Signs Date Time Temp Pulse Resp B/P (MAP) Pulse Ox O2 Delivery O2 Flow Rate FiO2 11/23/16 16:00 97.0 102 20 121/62 (81) 100 11/23/16 12:30 94 Non-Rebreather 15.00 11/23/16 12:00 97.1 101 20 110/53 (72) 94 11/23/16 08:05 Nasal Cannula 4.00 11/23/16 08:00 97.5 100 20 108/54 (72) 90 11/23/16 04:00 97.3 97 18 104/53 (70) 90 11/23/16 00:00 97.6 104 20 131/58 (82) 92 11/22/16 21:01 Nasal Cannula 4.00 11/22/16 20:15 91 11/22/16 20:15 95 Nasal Cannula 4.00 11/22/16 20:15 91 11/22/16 20:00 97.7 99 20 122/59 (80) 91 Physical Exam P 112, irreg, SBP 118, R 23 labored, Sats 97% NRBM Head: Normal. Neck: Supple, no airway obstruction. Lungs; Light crackles, no wheezes. Tachypnea. Heart: NL S1S2, freq PMB, 3/6 systolic murmur Abdomen: Soft, nontender, no guarding. Extremities: Warm, flushed, well perfused. Neuro: Conversant, SOB limits talk. Moves 4 limbs. Cooperative. Laboratory Laboratory Tests Test 11/23/16 09:11/23/16 13:00 White Blood Count 29.2 Red Blood Count 4.31 Hemoglobin 11.5 Hematocrit 35.7 Mean Corpuscular Volume 82.9 Mean Corpuscular Hemoglobin 26.6 Mean Corpuscular Hemoglobin Concent 32.1 Red Cell Distribution Width 16.4 Platelet Count 114 Mean Platelet Volume 10.6 Blood Urea Nitrogen 25 Creatinine 1.08 Random Glucose 110 Total Protein 7.0 Albumin 2.5 Calcium Level 8.3 Alkaline Phosphatase 297 Aspartate Amino Transf (AST/SGOT) 64 Alanine Aminotransferase (ALT/SGPT) 139 Total Bilirubin 1.1 Sodium Level 138 Potassium Level 3.6 Chloride Level 107 Carbon Dioxide Level 19.8 Anion Gap 11 Estimat Glomerular Filtration Rate 48 Lipase 76 Blood Gas Puncture Site RT RADIAL Blood Gas Patient Temperature 98.6 Blood Gas HCO3 19 Blood Gas Base Excess -5.4 Blood Gas Oxygen Saturation 94 Arterial Blood pH 7.37 Arterial Blood Partial Pressure CO2 34 Arterial Blood Partial Pressure O2 85 Arterial Blood Oxygen Content 16.2 Arterial Blood Carboxyhemoglobin 1.6 Arterial Blood Methemoglobin 0.9 Blood Gas Hemoglobin 12.2 Oxygen Delivery Device NRBR Blood Gas Liter Flow 15 Blood Gas Inspired Oxygen 100 Result Diagram: 11/23/1691611/23/16916 Assessment and Plan Assessment and Plan Assessment: 1. Hypoxemic Respiratory Failure. 2. Sepsis. 3. S/P biliary manipulation ERCP for obstructed duct with stones and sludge . 4. Systolic heart failure. Plan: 1. To ICU. 2. Continue broad abx coverage. 3. Blood cultures pending. 4. Protonix. 5. Lovenox dvt px. 6. No iv fluid. 7. Hold diuretics. 8. Lactic acid. Overall impression: She appears septic. Hypoxemia from many causes, mostly systolic heart failure and SIRS. Doubt she'll tolerate much more diuresis today without hurting her kidneys. Treat for sepsis, NRBM, BiPAP may be required. Critical care 44 mins Surya Hutchins MD Nov 23, 2016 17:57
[2016-11-23] MEDS ORDERED: VANCOMYCIN INJ 1,000 MG in SODIUM CHLOR 0.9% 250 ML INJ 250 ML IV SCH (18:00)
--- NOTE | 2016-11-23 18:38 | HHI.GIFU ---
GI Follow-up Note Consult Follow-up Subjective: Patient laying in bed , developed SOB earlier today , was evalauted by echocardiography tech, being transferred to the unit .Passing flatus , no bowel movement yet.Decreased appetite.Still abdominal pain Objective: PHYSICAL EXAMINATION: Vitals signs stable No fever Vital Signs Date Time Temp Pulse Resp B/P (MAP) Pulse Ox O2 Delivery O2 Flow Rate FiO2 11/23/16 16:00 97.0 102 20 121/62 (81) 100 11/23/16 12:30 94 Non-Rebreather 15.00 11/23/16 12:00 97.1 101 20 110/53 (72) 94 HEENT: Pupils round and reactive to light; normocephalic; atraumatic; no jaundice. Throat is clear. NECK: Neck is supple, no JVD, no lymphadenopathy. CHEST: wheezing . CARDIAC: Regular rate and rhythm with no murmur gallop or rubs. ABDOMEN: Soft, distended,tenderness mostly upper abdomen ; no hepatosplenomegaly; bowel sounds are present in all four quadrants, diminished EXTREMITIES: No clubbing, cyanosis, or edema. SKIN: Normal; no rash; no jaundice. DIRECTOR OF SOFTWARE DEVELOPMENT: No focal deficits; alert and oriented times three. Available Data (labs, X- Rays, Procedues) : Laboratory Tests Test 11/21/16 19:57 11/22/16 08:13 11/23/16 09:17 11/23/16 13:00 White Blood Count 27.2 TH/MM3 26.1 TH/MM3 29.2 TH/MM3 Red Blood Count 4.52 MIL/MM3 4.66 MIL/MM3 4.31 MIL/MM3 Hemoglobin 12.3 GM/DL 12.7 GM/DL 11.5 GM/DL Hematocrit 37.4 % 38.8 % 35.7 % Mean Corpuscular Volume 82.7 FL 83.2 FL 82.9 FL Mean Corpuscular Hemoglobin 27.2 PG 27.3 PG 26.6 PG Mean Corpuscular Hemoglobin Concent 32.9 % 32.8 % 32.1 % Red Cell Distribution Width 16.4 % 16.2 % 16.4 % Platelet Count 106 TH/MM3 112 TH/MM3 114 TH/MM3 Mean Platelet Volume 12.2 FL 11.2 FL 10.6 FL Neutrophils (%) (Auto) 84.2 % Lymphocytes (%) (Auto) 1.4 % Monocytes (%) (Auto) 11.6 % Eosinophils (%) (Auto) 2.6 % Basophils (%) (Auto) 0.2 % Neutrophils # (Auto) 22.9 TH/MM3 Lymphocytes # (Auto) 0.4 TH/MM3 Monocytes # (Auto) 3.1 TH/MM3 Eosinophils # (Auto) 0.7 TH/MM3 Basophils # (Auto) 0.0 TH/MM3 CBC Comment AUTO DIFF AUTO DIFF Differential Total Cells Counted 100 100 Neutrophils % (Manual) 79 % 91 % Band Neutrophils % 4 % 2 % Lymphocytes % 3 % 2 % Monocytes % 12 % 5 % Neutrophils # (Manual) 23.1 TH/MM3 24.3 TH/MM3 Metamyelocytes 2 % Differential Comment FINAL DIFF MANUAL FINAL DIFF MANUAL Platelet Estimate LOW LOW Platelet Morphology Comment ENLARGED ENLARGED Tear Drop Cells 1+ Ovalocytes 1+ 1+ Acanthocytes 2+ 2+ Prothrombin Time 11.5 SEC Prothromb Time International Ratio 1.0 RATIO Blood Urea Nitrogen 35 MG/DL 32 MG/DL 25 MG/DL Creatinine 1.58 MG/DL 1.25 MG/DL 1.08 MG/DL Random Glucose 93 MG/DL 87 MG/DL 110 MG/DL Total Protein 7.3 GM/DL 7.2 GM/DL 7.0 GM/DL Albumin 2.7 GM/DL 2.6 GM/DL 2.5 GM/DL Calcium Level 8.8 MG/DL 8.7 MG/DL 8.3 MG/DL Magnesium Level 1.7 MG/DL 1.8 MG/DL Alkaline Phosphatase 334 U/L 310 U/L 297 U/L Aspartate Amino Transf (AST/SGOT) 109 U/L 83 U/L 64 U/L Alanine Aminotransferase (ALT/SGPT) 231 U/L 197 U/L 139 U/L Total Bilirubin 3.8 MG/DL 2.0 MG/DL 1.1 MG/DL Direct Bilirubin 2.6 MG/DL 1.4 MG/DL Sodium Level 139 MEQ/L 133 MEQ/L 138 MEQ/L Potassium Level 3.7 MEQ/L 3.0 MEQ/L 3.6 MEQ/L Chloride Level 107 MEQ/L 101 MEQ/L 107 MEQ/L Carbon Dioxide Level 21.1 MEQ/L 19.7 MEQ/L 19.8 MEQ/L Anion Gap 11 MEQ/L 12 MEQ/L 11 MEQ/L Estimat Glomerular Filtration Rate 31 ML/MIN 41 ML/MIN 48 ML/MIN Indirect Bilirubin 1.2 MG/DL 0.6 MG/DL Keratocytes OCC Amylase Level 89 U/L Lipase 67 U/L 76 U/L Blood Gas Puncture Site RT RADIAL Blood Gas Patient Temperature 98.6 Blood Gas HCO3 19 mmol/L Blood Gas Base Excess -5.4 mmol/L Blood Gas Oxygen Saturation 94 % Arterial Blood pH 7.37 Arterial Blood Partial Pressure CO2 34 mmHg Arterial Blood Partial Pressure O2 85 mmHg Arterial Blood Oxygen Content 16.2 Vol % Arterial Blood Carboxyhemoglobin 1.6 % Arterial Blood Methemoglobin 0.9 % Blood Gas Hemoglobin 12.2 G/DL Oxygen Delivery Device NRBR Blood Gas Liter Flow 15 L/M Blood Gas Inspired Oxygen 100 % ASSESSMENT/PLAN: abdominal pain , elevated lfts and wbc upon admission - due to cbd stones-s/p ercp with stone removal ileus worsening respiratory status -possible sepsis , chf Recommendations npo except medications ngt CT abdomen/pelvis stat-call gi with results if worsening pain consider surgical consult iv antibiotics Dulcolax supp await repet labs us doppler of mesenteric vessels-cannot have cta/mra due to renal function It was a pleasure seeing Brea Forde. Thank you for this consult. Entered by: Rosette Pandya MD Nov 23, 2016 18:38
[2016-11-23] MEDS ORDERED: BISACODYL 10 MG SUPP RECTAL ONE (18:45)
--- NOTE | 2016-11-23 20:26 | RADRPT ---
EXAM DATE/TIME: 11/23/2016 19:33 [facility] COMPARISON: No previous studies available for comparison. INDICATIONS : Abdominal pain. MEDICAL HISTORY : Hypertension. Cerebrovascular accident. Transient ischemic attack. Arthritis. SURGICAL HISTORY : CABG Hysterectomy. Cataract surgery. Loss of left eye. Surgery to remove gallstone. Bilateral car otid endarterectomies. ENCOUNTER: Initial ACUITY: 3 day PAIN SCORE: 8/10 LOCATION: Abdomen. AORTA: SAGITTAL PROXIMAL: 42.2 cm/sec SAGITTAL MID: NOT VISUALIZED SAGITTAL DISTAL: NOT VISUALIZED CELIAC ARTERY: CA ORIGIN: 241.1 cm/sec CA PROXIMAL: 239.9 cm/sec CA MID: 236.2 cm/sec CA DISTAL: 239.1 cm/sec HEPATIC ARTERY: 404.2 cm/sec SPLENIC ARTERY: 362.2 cm/sec SUPERIOR MESENTERIC ARTERY: SMA PROXIMAL: 179.4 cm/sec SMA MID: NOT VISUALIZED SMA DISTAL: NOT VISUALIZED FINDINGS: Distal aorta and distal SMA obscured by bowel gas. Patient is not n.p.o. CONCLUSION: 1. Somewhat limited study. Proximal superior mesenteric artery appears patent. 2. Mildly elevated flow velocities in the celiac and hepatic arteries of doubtful clinical significan ce. Giovani Martinez MD on November 23, 2016 at 20:22 Board Certified Radiologist. This report was verified electronically.
[2016-11-23] MEDS: ATORVASTATIN 80 MG TAB PO SCH (20:42)
[2016-11-23 22:02] LABS: BLOOD, URINE NEG (NEG); COMMENT (UR) CULT NOT INDICATED; CULTURE IF INDICATED CULT NOT INDICATED; GLUCOSE,URINE NEG (NEG); HYALINE CAST, URINE 1 /lpf (RARE); KETONE, URINE NEG (NEG); NITRITE,URINE NEG (NEG); SQUAMOUS EPITHELIAL CELL URINE <1 /hpf (0-5); URINE COLOR YELLOW (YELLW/STRAW)
--- NOTE | 2016-11-23 22:11 | RADRPT ---
EXAM DATE/TIME: 11/23/2016 21:46 [facility] COMPARISON: CT ABDOMEN & PELVIS W CONTRAST, September 24, 2014, 5:39. MRCP W & W/O CONTRAST, September 27, 2014, 15:00. G I LAB ERCP, November 21, 2016, 10:44. CT ABDOMEN & PELVIS W/O CONTRAST, November 20, 2016, 15:16. INDICATIONS : Abdominal pain. ORAL CONTRAST: No oral contrast ingested. RADIATION DOSE: 13.55 CTDIvol (mGy) MEDICAL HISTORY : Hypertension. Cardiovascular disease CVA. SURGICAL HISTORY : Hysterectomy. CABGGU sling. ENCOUNTER: Initial ACUITY: 1 day PAIN SCALE: 8/10 LOCATION: Bilateral abdomen TECHNIQUE: Volumetric scanning of the abdomen and pelvis was performed. Using automated exposure control and ad justment of the mA and/or kV according to patient size, radiation dose was kept as low as reasonably achievable to obtain optimal diagnostic quality images. DICOM format image data is available electro nically for review and comparison. FINDINGS: Distended common bile duct at about 13 mm. The common bile duct wall appears mildly thickened/indurat ed and there is slight edema around the pancreatic head. Gallbladder is distended and has numerous ti ny gravel-like stones. I don't see a large gallstone or large duct stone. No significant intrahepatic ovary distention demonstrated. 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 The cecum is distended. The left side of the colon is decompressed. There is moderate diffuse distention of fluid and air-filled small bowel. Naso gastric tube is seen in the stomach, nondistended. Unchanged prominence of both adrenal glands. There are cysts of both kidneys measuring up to 4 cm in size. No hydronephrosis or hydroureter. Dense atherosclerosis seen of the abdominal aorta. No aneurysm. Patchy pneumonia developing in both lung bases. There is a tiny pleural effusion on the right. CONCLUSION: 1. 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 2. Mild head pancreatitis possible in the proper clinical setting. Patient has recently had ERCP and bile duct stone extraction. 3. Bibasilar pneumonia developing. Tiny pleural effusion on the right. 4. Chronic findings otherwise. Giovani Martinez MD on November 23, 2016 at 22:03 Board Certified Radiologist. This report was verified electronically.
[2016-11-23] MEDS: TEMAZEPAM 15 MG CAP PO PRN (23:20)
[2016-11-23] MEDS: AMITRIPTYLINE HCL 10 MG TAB PO SCH (23:20)
[2016-11-24] VITALS (9 sets, daily range): BP systolic 99–117; BP diastolic 51–58; PULSE 101–107; RESP 14–28; TEMP 97.4–98.6; O2SAT 91–97
[2016-11-24] MEDS: HYDROmorphone HCL PF 1 MG/ML VIAL IV PUSH PRN ×3 (01:59→12:44)
[2016-11-24 02:52] LABS: AUTOMATED NEUTROPHIL # 29.3 TH/MM3 (1.8-7.7); BASOPHIL # 0.1 TH/MM3 (0-0.2); BASOPHIL % 0.2 % (0.0-2.0); EOSINOPHIL # 0.8 TH/MM3 (0-0.4); EOSINOPHIL % 2.3 % (0.0-4.0); HEMATOCRIT 31.7 % (35.0-46.0); LYMPH % 3.5 % (9.0-44.0); LYMPHOCYTE # 1.2 TH/MM3 (1.0-4.8); MEAN CELL VOLUME 82.3 FL (80.0-100.0); MEAN CORPUSCULAR HEMOGLOBIN 26.4 PG (27.0-34.0); MEAN CORPUSCULAR HGB CONC 32.1 % (32.0-36.0); MONO % 9.2 % (0.0-8.0); NEUT % 84.8 % (16.0-70.0); PLATELET COUNT 126 TH/MM3 (150-450); RED BLOOD COUNT 3.86 MIL/MM3 (4.00-5.30); RED CELL DISTRIBUTION WIDTH 16.2 % (11.6-17.2); WHITE BLOOD COUNT 34.6 TH/MM3 (4.0-11.0)
[2016-11-24 03:08] LABS: HEMO FLAGS AUTO DIFF
[2016-11-24 03:19] LABS: BICARBONATE 24.8 MEQ/L (21.0-32.0); POTASSIUM 3.5 MEQ/L (3.5-5.1)
[2016-11-24 03:20] LABS: INDIRECT BILIRUBIN 0.3 MG/DL (0.0-0.8); TOTAL BILIRUBIN ADULT 0.9 MG/DL (0.2-1.0)
[2016-11-24 04:28] LABS: BANDS 11 % (0-6); NEUTROPHIL # MANUAL DIFF 29.8 TH/MM3 (1.8-7.7); POLYS (SEG NEUTROPHILS) 75 % (16-70); WBC DIFF SAMPLE 100
[2016-11-24 04:32] LABS: BURR CELLS 1+ (NORMAL); DOHLE BODIES PRESENT (NONE SEEN); OVALOCYTES 1+ (NORMAL); PLATELET ESTIMATE SMEAR LOW (NORMAL); PLATELET MORPHOLOGY ENLARGED (NORMAL); SCAN/DIFF FINAL DIFF MANUAL
[2016-11-24] MEDS: metroNIDAZOLE 500 MG INJ 100 ML IV SCH (08:06)
[2016-11-24] MEDS: LEVOFLOXACIN 500 MG PREMIX INJ 100 ML IV SCH (08:07)
[2016-11-24] MEDS ORDERED: ROCURONIUM INJ 50 MG/5 ML SYRINGE IV PUSH ONE ×2 (08:37)
[2016-11-24] MEDS ORDERED: LIDOCAINE HCL 1% PF 5 ML AMPULE OTHER ONE ×2 (08:37)
[2016-11-24] MEDS ORDERED: PHENYLEPH/NS 1000 MCG/10 ML SYR IV ONE ×2 (08:37)
[2016-11-24] MEDS ORDERED: SUCCINYLCHOLINE CHLORIDE 100 MG/5 ML SYRINGE IV PUSH ONE (08:37)
[2016-11-24] MEDS ORDERED: NEOSTIGMINE 3 MG/3 ML SYR IV ONE (08:37)
[2016-11-24] MEDS ORDERED: MIDAZOLAM HCL 2 MG/2 ML VIAL IV ONE (08:37)
[2016-11-24] MEDS ORDERED: ONDANSETRON HCL 4 MG/2 ML VIAL IV PUSH ONE (08:37)
[2016-11-24] MEDS ORDERED: LACTATED RINGER'S 1000 ML INJ 1,000 ML IV ONE ×2 (08:37→10:20)
[2016-11-24] MEDS ORDERED: PROPOFOL 200 MG/20 ML AMP IV ONE ×3 (08:37→10:29)
[2016-11-24] MEDS ORDERED: PHENYLEPHRINE HCL 10 MG/ML VIAL IV ONE (08:50)
[2016-11-24] MEDS: URSODIOL 300 MG CAP PO SCH ×2 (08:55→20:45)
[2016-11-24] MEDS: ASPIRIN 81 MG CHEW TAB CHEW SCH (08:55)
[2016-11-24] MEDS: PANTOPRAZOLE SOD 20 MG DELAYED RELEASE TAB PO SCH (08:55)
[2016-11-24] MEDS: CILOSTAZOL 100 MG TAB PO SCH ×2 (08:55→20:45)
[2016-11-24] MEDS: NIFEdipine 60 MG SUSTAINED RELEASE TAB PO SCH (08:55)
[2016-11-24] MEDS: SODIUM CHLORIDE 0.9% FLUSH 10 ML FLUSH IV FLUSH SCH ×2 (08:56→20:46)
[2016-11-24] MEDS ORDERED: KETAMINE HCL 500 MG/5 ML VIAL ONE (10:23)
--- NOTE | 2016-11-24 10:43 | GIPROC ---
[facility] [address] [facility]. [facility], [address] COLONOSCOPY PROCEDURE REPORT EXAM DATE: 11/24/2016 PATIENT NAME: Brea Forde MR #: [id number] BIRTHDATE: 1930 ENDOSCOPIST: Danelle Kothari MD ORDER #: [id number] PYTHON DEVELOPER: Terra Muniz and Rebekah David STATUS: inpatient INDICATIONS: The patient is a 86 yr old female here for a colonoscopy due to abdominal pain and an abnormal CT PROCEDURE PERFORMED: Colonoscopy, incomplete MEDICATIONS: None and Per Anesthesia. PREP QUALITY: poor ESTIMATED BLOOD LOSS: None CONSENT: The patient understands the risks and benefits of the procedure and understands that these risks include, but are not limited to: sedation, allergic reaction, infection, perforation and/or bleeding. Alternative means of evaluation and treatment include, among others: physical exam, x-rays, and/or surgical intervention. The patient elects to proceed with this endoscopic procedure. medical equipment was checked for proper function. Hand hygiene and appropriate measures for infection prevention was taken. After the risks, benefits and alternatives of the procedure were thoroughly explained, Informed consent was verified, confirmed and timeout was successfully executed by the treatment team. A digital exam revealed external hemorrhoids The Pentax [id number] endoscope was introduced through the anus and advanced to the sigmoid colon. The instrument was then slowly withdrawn as the colon was fully examined. COLON FINDINGS: There was moderate diverticulosis noted in the sigmoid colon with associated colonic narrowing. No bleeding was noted from the diverticulosis. Retroflexed views revealed internal hemorrhoids and Retroflexed views revealed medium internal hemorrhoids The scope was then completely withdrawn from the patient and the procedure terminated. ADVERSE EVENTS: There were no complications. IMPRESSIONS: 1. There was moderate diverticulosis noted in the sigmoid colon 2. Retroflexed views revealed internal hemorrhoids 3. Retroflexed views revealed medium internal hemorrhoids 4. Revealed external hemorrhoids RECOMMENDATIONS: 1. Xray for Barium enema 2. Surgical consult RECALL: Return 2 days Colonoscopy Danelle Kothari MD eSigned: Danelle Kothari MD 11/24/2016 10:43 AM cc: PATIENT NAME: Brea Forde MR#: [id number]
[2016-11-24] MEDS ORDERED: *MEPERIDINE 25 MG INJ VIAL PERIprocedural Use ONLY ONE (10:54)
[2016-11-24] MEDS ORDERED: RESP: ALBUTEROL 2.5 MG/IPRATROPIUM 0.5 MG NEB (PRN) NEB (11:45)
[2016-11-24] MEDS: PANTOPRAZOLE SODIUM 40 MG VIAL IV PUSH SCH (12:00)
[2016-11-24] MEDS: RESP: ALBUTEROL 2.5 MG/IPRATROPIUM 0.5 MG NEB (SCH) NEB ×3 (12:00→20:53)
--- NOTE | 2016-11-24 12:12 | HHI.CCPN ---
Subjective Remarks/Hospital Course 86 y/o woman developed worsening SOB this afternoon associated with marked leukocytosis. Recent biliary instrumentation for obstruction 48 hours ago and probable sepsis. On appropriate antibiotics. Requiring NRBM now for oxygenation to 97%. Visibly labored breathing. CXR with interstitial edema. EF 35% 2014. Move to ICU. 11/24: Patient s/p colonoscopy this morning which showed mod. diverticulosis in sigmoid colon and hemorrhoids. Remains on NRB with good sats. Afebrile. Cr increased 1.51 from 1.08. Objective Vital Signs Date Time Temp Pulse Resp B/P (MAP) Pulse Ox O2 Delivery O2 Flow Rate FiO2 11/24/16 11:15 101 22 118/64 (82) 99 Non-Rebreather 15 11/24/16 10:49 98.8 Intake and Output 11/24/16 11/24/16 11/25/16 08:00 16:00 00:00 Intake Total 0 ml 200 ml Output Total 1150 ml Balance -1150 ml 200 ml Result Diagram: 11/24/16 0238 11/24/16 0238 Other Results Laboratory Tests Test 11/23/16 13:00 11/23/16 19:40 11/24/16 02:38 Blood Gas Puncture Site RT RADIAL Blood Gas Patient Temperature 98.6 Blood Gas HCO3 19 mmol/L Blood Gas Base Excess -5.4 mmol/L Blood Gas Oxygen Saturation 94 % Arterial Blood pH 7.37 Arterial Blood Partial Pressure CO2 34 mmHg Arterial Blood Partial Pressure O2 85 mmHg Arterial Blood Oxygen Content 16.2 Vol % Arterial Blood Carboxyhemoglobin 1.6 % Arterial Blood Methemoglobin 0.9 % Blood Gas Hemoglobin 12.2 G/DL Oxygen Delivery Device NRBR Blood Gas Liter Flow 15 L/M Blood Gas Inspired Oxygen 100 % Urine Color YELLOW Urine Turbidity CLEAR Urine pH 5.0 Urine Specific [place] 1.008 Urine Protein TRACE mg/dL Urine Glucose (UA) NEG mg/dL Urine Ketones NEG mg/dL Urine Occult Blood NEG Urine Nitrite NEG Urine Bilirubin NEG Urine Urobilinogen LESS THAN 2.0 MG/DL Urine Leukocyte Esterase NEG Urine Squamous Epithelial Cells <1 /hpf Urine Amorphous Sediment RARE Urine Hyaline Casts 1 /lpf Microscopic Urinalysis Comment CULT NOT INDICATED Nasal Screen MRSA (PCR) MRSA NOT DETECTED White Blood Count 34.6 TH/MM3 Red Blood Count 3.86 MIL/MM3 Hemoglobin 10.2 GM/DL Hematocrit 31.7 % Mean Corpuscular Volume 82.3 FL Mean Corpuscular Hemoglobin 26.4 PG Mean Corpuscular Hemoglobin Concent 32.1 % Red Cell Distribution Width 16.2 % Platelet Count 126 TH/MM3 Mean Platelet Volume 10.4 FL Neutrophils (%) (Auto) 84.8 % Lymphocytes (%) (Auto) 3.5 % Monocytes (%) (Auto) 9.2 % Eosinophils (%) (Auto) 2.3 % Basophils (%) (Auto) 0.2 % Neutrophils # (Auto) 29.3 TH/MM3 Lymphocytes # (Auto) 1.2 TH/MM3 Monocytes # (Auto) 3.2 TH/MM3 Eosinophils # (Auto) 0.8 TH/MM3 Basophils # (Auto) 0.1 TH/MM3 CBC Comment AUTO DIFF Differential Total Cells Counted 100 Neutrophils % (Manual) 75 % Band Neutrophils % 11 % Lymphocytes % 2 % Monocytes % 12 % Neutrophils # (Manual) 29.8 TH/MM3 Differential Comment FINAL DIFF MANUAL Dohle Bodies PRESENT Platelet Estimate LOW Platelet Morphology Comment ENLARGED Ovalocytes 1+ Hyndman Cells 1+ Blood Urea Nitrogen 24 MG/DL Creatinine 1.51 MG/DL Random Glucose 128 MG/DL Total Protein 7.0 GM/DL Albumin 2.3 GM/DL Calcium Level 8.2 MG/DL Alkaline Phosphatase 248 U/L Aspartate Amino Transf (AST/SGOT) 50 U/L Alanine Aminotransferase (ALT/SGPT) 113 U/L Total Bilirubin 0.9 MG/DL Direct Bilirubin 0.6 MG/DL Sodium Level 140 MEQ/L Potassium Level 3.5 MEQ/L Chloride Level 107 MEQ/L Carbon Dioxide Level 24.8 MEQ/L Anion Gap 8 MEQ/L Estimat Glomerular Filtration Rate 33 ML/MIN Lactic Acid Level 0.9 mmol/L Indirect Bilirubin 0.3 MG/DL B-Type Natriuretic Peptide 206 PG/ML Lipase 69 U/L Imaging Last Impressions Chest X-Ray 11/23/16 0000 Signed Impressions: Service Date/Time: Wednesday, November 23, 2016 12:58 - CONCLUSION: 1. Diffuse increased interstitial markings consistent with mild pulmonary vascular congestion versus pneumonia superimposed on chronic interstitial disease. Hasmukh Oakes MD Abdomen/Pelvis CT 11/23/16 0000 Signed Impressions: Service Date/Time: Wednesday, November 23, 2016 21:46 - CONCLUSION: 1. 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 2. Mild head pancreatitis possible in the proper clinical setting. Patient has recently had ERCP and bile duct stone extraction. 3. Bibasilar pneumonia developing. Tiny pleural effusion on the right. 4. Chronic findings otherwise. Giovani Martinez MD Abdomen Ultrasound 11/23/16 0000 Signed Impressions: Service Date/Time: Wednesday, November 23, 2016 19:33 - CONCLUSION: 1. Somewhat limited study. Proximal superior mesenteric artery appears patent. 2. Mildly elevated flow velocities in the celiac and hepatic arteries of doubtful clinical significance. Giovani Martinez MD GI Procedure 11/21/16 0000 Signed Impressions: Service Date/Time: Monday, November 21, 2016 10:44 - CONCLUSION: ERCP as above. Reymundo Wilburn MD FACR Chest CT 11/20/16 1407 Signed Impressions: Service Date/Time: Sunday, November 20, 2016 15:13 - CONCLUSION: 1. Severe underlying emphysema. 2. Status post median sternotomy with postsurgical changes. Maikol Paredes MD Objective Remarks GENERAL: Patient is 86 yo on NRB lying in bed in mild resp distress SKIN: Warm and dry. HEAD: Normocephalic. EYES: No scleral icterus. No injection or drainage. NECK: Supple, trachea midline. No JVD or lymphadenopathy. CARDIOVASCULAR: Tachycardic without murmurs, gallops, or rubs. RESPIRATORY: Breath sounds equal bilaterally. No accessory muscle use. GASTROINTESTINAL: Abdomen soft, tenderness on palpation.. MUSCULOSKELETAL: No cyanosis, or edema. Neuro: awake and alert. A/P Assessment and Plan 1. Hypoxemic Respiratory Failure. 2. Sepsis. 3. S/P biliary manipulation ERCP for obstructed duct with stones and sludge . 4. Systolic heart failure. 5 Leukocytosis 6 Anemia, thrombocytopenia 7 Elevated LFT;s 8 Abdominal pain Plan: Neuro: Awake and alert. avoid sedatives Dilaudid PRN for pain Pulm: Wean down oxygen as adelina and maintain sat >92% Bronchodilators, check CXR and ABG now if there is any worsening of resp status will proceed with intubation and mechanical ventilation CT chest 11/20: Severe underlying emphysema. Status post median sternotomy with postsurgical changes. Will give Solumederol 40mg Q6 x 4 doses, diurese with Bumex 1mg x1 CV: Monitor HR and BP keep MAP>65mmHg Lactic acid 11/23: 0.9 Echo from 09/2014 showed EF 35%. Will recheck 2D echo On ASA, Procardia XL 60mg daily. Hold Lipitor ( elevated LFT's) : Monitor renal function, I/O's, avoid nephrotoxins Gentle IV hydration given systolic dysfunction Cr increased 1.51 from 1.08 GI: NPO, monitor LFT;s s/p Colonoscopy this morning showed Diverticulosis in sigmoid colon, hemorrhoids For Gastrografin enema per GI. Surgery is following- Dr. 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 Mild head pancreatitis possible in the proper clinical setting. Patient has recently had ERCP and bile duct stone extraction. Bibasilar pneumonia developing. Tiny pleural effusion on the right US abdomen: Proximal superior mesenteric artery appears patent. ID: Continue with abx ( Levaquin, Flagyl) Monitor for signs of infections ( Fever, WBC) ID eval. Follow up on BC . Heme: Monitor CBC Endo: Place on SSI with accuchecks GI prophylaxis- Protonix 40mg daily DVT prophylaxis- Lovenox 30mg daily Level 3 Marian Rodríguez MD Nov 24, 2016 12:12
[2016-11-24] MEDS ORDERED: GLUCAGON 1 MG/ML VIAL OTHER PRN (12:15)
[2016-11-24] MEDS ORDERED: DEXTROSE 50% IN WATER 50 ML VIAL(D50) IV PRN (12:15)
[2016-11-24] MEDS ORDERED: DO NOT ADM ANY ANTICOAGULANT DRUGS PRN ×2 (12:15→18:00)
[2016-11-24] MEDS: INSULIN NovoLIN REGULAR SUPPLEMENTAL SCALE SQ SCH ×3 (12:15→20:15)
[2016-11-24 12:36] LABS: BLOOD GAS BASE EXCESS -4.3 mmol/L (-2-2); BLOOD GAS CARBOXYHEMOGLOBIN 1.6 % (0-4); BLOOD GAS HCO3 21 mmol/L (22-26); BLOOD GAS METHEMOGLOBIN 1.2 % (0-2); BLOOD GAS O2 HGB SATURATION 94 % (90-100); BLOOD GAS OXYGEN CONTENT 12.9 Vol % (12.0-20.0); BLOOD GAS PCO2 39 mmHg (38-42); BLOOD GAS PO2 84 mmHg (61-120); BLOOD GAS TOTAL HGB 9.7 G/DL (12.0-16.0); CRITICAL VALUE NO; DRAW SITE RT RADIAL; FIO2 100 %; LITER FLOW 15 L/M; OXYGEN DEVICE NRM; TEMP CORR TO 98.6
[2016-11-24 12:37] LABS: NUMBER OF ARTERIAL PUNCTURES 1; STAT YES; ULNAR PULSE PRESENT
--- NOTE | 2016-11-24 12:38 | RADRPT ---
EXAM DATE/TIME: 11/24/2016 11:57 [facility] COMPARISON: CT ABDOMEN & PELVIS W/O CONTRAST, November 23, 2016, 21:46. CHEST SINGLE AP, November 23, 2016, 12 :58. INDICATIONS : Shortness of breath. MEDICAL HISTORY : Hypertension. Cardiovascular disease. CVA. SURGICAL HISTORY : Hysterectomy. CABG. ENCOUNTER: Subsequent ACUITY: 2 days PAIN SCORE: 8/10 LOCATION: Bilateral chest FINDINGS: Stable median sternotomy wires. Interval placement of nasogastric catheter with tip extending beyond the GE junction omitted from the image. Continued diffuse coarse interstitial prominence with bilater al lower lobe linear airspace disease. Cardiomediastinal contours are stable. Remainder of the exam i s unchanged. CONCLUSION: 1. Interval placement of nasogastric catheter with tip beyond the GE junction omitted from the image. 2. Persistent diffuse coarse interstitial prominence likely reflecting interstitial edema/pneumonia s uperimposed on chronic interstitial changes. 3. Stable mild bibasilar airspace disease, likely atelectasis. Sam Buckner MD on November 24, 2016 at 12:33 Board Certified Radiologist. This report was verified electronically.
[2016-11-24] MEDS ORDERED: BUMETANIDE INJ 1 MG/4 ML VIAL IV PUSH ONE (13:00)
[2016-11-24] MEDS: methylPREDNISolone SOD SUCC 40 MG/1 ML VIAL IV PUSH SCH ×2 (13:40→20:45)
[2016-11-24] MEDS ORDERED: HYDROmorphone HCL PF 1 MG/ML VIAL IV PUSH ONE (14:00)
--- NOTE | 2016-11-24 14:19 | PD.CONS ---
HPI Service General Surgery Consult Requested By Dr. Mojica Reason for Consult Cecal volvulus Primary Care Physician Thee Lambert MD History of Present Illness The patient is an 86-year-old female with a history of coronary artery disease status post CABG in 2005 and hypertension as well as choledocholithiasis status post ERCP who presented to the hospital a few days ago with abdominal pain was noted to have hyperbilirubinemia. She underwent ERCP with stone extraction from the common bile duct. It seems she actually slightly improved and then worsened again with persistent complaints of abdominal pain. CT of the abdomen and pelvis was performed to evaluate for a post-ERCP complication. However, the CT scan revealed cecal volvulus. I discussed the CT scan personally with Dr. Ruiz in radiology and review the images and it appears there is some early pneumatosis in the wall of the colon as well. On my evaluation the patient complains of severe abdominal pain. She underwent colonoscopy this morning but was unable to have a full colonoscopy due to solid stool. She has had persistent elevation of white blood count during the hospitalization. Today is 34,000. Review of Systems Constitutional: DENIES: Fever, Chills Eyes: DENIES: Eye inflammation, Eye pain Respiratory: DENIES: Cough, Wheezing Cardiovascular: DENIES: Chest pain Gastrointestinal: COMPLAINS OF: Abdominal pain Integumentary: DENIES: Pruritus, Rash Neurologic: DENIES: Localized weakness, Seizures Past Family Social History Past Medical History Coronary artery disease Hypertension Choledocholithiasis Past Surgical History Hysterectomy Coronary artery bypass graft 2005 Reported Medications Reported Meds & Active Scripts Active Reported Amitriptyline (Amitriptyline HCl) 10 Mg Tab 10 Mg PO HS Pantoprazole (Pantoprazole Sodium) 20 Mg Tab 20 Mg PO BID Nifedipine ER 24 HR (Nifedipine) 60 Mg Tab 60 Mg PO DAILY Atorvastatin (Atorvastatin Calcium) 80 Mg Tab 80 Mg PO HS Cilostazol 100 Mg Tab 100 Mg PO BID Hydrocodone-Acetaminophen 7.5-300 Mg Tab 1 Tab PO TID PRN Aspirin Low Dose (Aspirin) 81 Mg Chew 81 Mg CHEW DAILY Allergies: Coded Allergies: penicillin G (Unverified Allergy, Severe, HIVES, 10/23/16) Active Ordered Medications Current Medications Medications (Trade) Dose Ordered Sig/Jazzmine Route Start Time Stop Time Status Last Admin (NS Flush) 2 ml UNSCH PRN IV FLUSH 11/20/16 16:15 (NS Flush) 2 ml BID IV FLUSH 11/20/16 21:00 11/24/16 08:56 (Tylenol) 650 mg Q4H PRN PO 11/20/16 16:15 (Zofran Inj) 4 mg Q6H PRN IVP 11/20/16 16:15 (Restoril) 15 mg HS PRN PO 11/20/16 16:15 11/23/16 23:20 (Lovenox Inj) 30 mg Q24H SQ 11/20/16 16:15 Future hold 11/23/16 15:55 (Narcan Inj) 0.4 mg UNSCH PRN IV 11/20/16 16:15 (Milk Of Magnesia Liq) 30 ml Q12H PRN PO 11/20/16 16:15 Metronidazole 100 ml @ 100 mls/hr Q8H IV 11/21/16 00:00 11/24/16 08:06 Levofloxacin/ Dextrose 100 ml @ 100 mls/hr Q24H IV 11/21/16 08:00 11/24/16 08:07 (Elavil) 10 mg HS PO 11/20/16 21:00 11/23/16 23:20 (Aspirin Chew) 81 mg DAILY CHEW 11/21/16 09:00 11/24/16 08:55 (Lipitor) 80 mg HS PO 11/20/16 21:00 Future Hold 11/23/16 20:42 (Pletal) 100 mg BID PO 11/20/16 21:00 11/24/16 08:55 (Procardia Xl) 60 mg DAILY PO 11/21/16 09:00 11/24/16 08:55 (Dilaudid Pf Inj) 0.5 mg Q4H PRN IV PUSH 11/21/16 14:45 11/24/16 12:44 ([place] 5-325 Mg) 1 tab Q4H PRN PO 11/21/16 15:00 11/23/16 15:54 (Actigall) 300 mg Q12HR PO 11/22/16 21:00 11/24/16 08:55 Pharmacy Profile Note 0 ml @ 0 mls/hr UNSCH OTHER 11/23/16 16:00 Vancomycin HCl 1000 mg/Sodium Chloride 250 ml @ 250 mls/hr Q24H IV 11/23/16 18:00 Future Hold 11/23/16 18:15 (Duoneb Neb) 1 ampule Q4HR NEB NEB 11/24/16 12:00 (Duoneb Neb) 1 ampule Q2HR NEB PRN NEB 11/24/16 11:45 Miscellaneous Information ALL NURSING DEPARTME... UNSCH PRN .XX 11/24/16 12:15 11/25/16 12:14 (Protonix Inj) 40 mg DAILY IV PUSH 11/24/16 12:00 (D50w (Vial) Inj) 50 ml UNSCH PRN IV 11/24/16 12:15 (Glucagon Inj) 1 mg UNSCH PRN OTHER 11/24/16 12:15 (NovoLIN R SUPPLEMENTAL SCALE) 1 Q4H SQ 11/24/16 12:15 (SoluMEDROL INJ) 40 mg Q6H IV PUSH 11/24/16 13:00 11/24/16 13:40 Family History Noncontributory Social History No current alcohol tobacco or drug use. She has her , daughter, and son present with her. Reportedly she had good functional capacity prior to this hospitalization Physical Exam Vital Signs Vital Signs Date Time Temp Pulse Resp B/P (MAP) Pulse Ox O2 Delivery O2 Flow Rate FiO2 11/24/16 12:00 93 Non-Rebreather 15.00 11/24/16 12:00 98.6 101 28 106/57 (73) 91 11/24/16 11:47 95 Non-Rebreather 12.00 11/24/16 11:15 101 22 118/64 (82) 99 Non-Rebreather 15 11/24/16 11:00 100 22 124/67 (86) 99 Non-Rebreather 15 11/24/16 10:49 98.8 100 22 116/54 (74) 99 Non-Rebreather 15 11/24/16 10:00 92 Non-Rebreather 15.00 11/24/16 08:00 98.6 107 26 117/58 (77) 93 11/24/16 08:00 107 11/24/16 08:00 93 Non-Rebreather 15.00 11/24/16 06:00 93 Non-Rebreather 15.00 11/24/16 04:00 96 Non-Rebreather 15.00 11/24/16 04:00 97.4 104 18 103/51 (68) 93 11/24/16 02:00 93 Non-Rebreather 15.00 11/24/16 00:00 97.5 107 24 115/55 (75) 94 11/24/16 00:00 93 Non-Rebreather 15.00 11/23/16 22:00 108 11/23/16 20:00 94 Non-Rebreather 15.00 11/23/16 20:00 97.9 103 30 114/56 (75) 100 11/23/16 20:00 103 11/23/16 16:00 97.0 102 20 121/62 (81) 100 Physical Exam GENERAL: Elderly female in moderate distress. Nonrebreather in place. Alert and conversant. Neuro: Alert and oriented. In some distress but comprehending the discussion regarding her current condition. HEAD: Normocephalic. Atraumatic. EYES: Pupils equal round and reactive to light bilaterally. No scleral icterus. ENT: NG tube in place. NECK: Trachea midline. CHEST: Oxygen saturation in the high 90s on nonrebreather. CARDIOVASCULAR: Regular rate and rhythm. ABDOMEN: Mild distention. Severe tenderness in the right mid abdomen. EXTREMITIES: No cyanosis or edema. SKIN: Cool dry, nonjaundiced. Laboratory Laboratory Tests Test 11/23/16 19:40 11/24/16 02:38 11/24/16 12:20 Urine Color YELLOW Urine Turbidity CLEAR Urine pH 5.0 Urine Specific [place] 1.008 Urine Protein TRACE Urine Glucose (UA) NEG Urine Ketones NEG Urine Occult Blood NEG Urine Nitrite NEG Urine Bilirubin NEG Urine Urobilinogen LESS THAN 2.0 Urine Leukocyte Esterase NEG Urine Squamous Epithelial Cells <1 Urine Amorphous Sediment RARE Urine Hyaline Casts 1 Microscopic Urinalysis Comment CULT NOT INDICATED Nasal Screen MRSA (PCR) MRSA NOT DETECTED White Blood Count 34.6 Red Blood Count 3.86 Hemoglobin 10.2 Hematocrit 31.7 Mean Corpuscular Volume 82.3 Mean Corpuscular Hemoglobin 26.4 Mean Corpuscular Hemoglobin Concent 32.1 Red Cell Distribution Width 16.2 Platelet Count 126 Mean Platelet Volume 10.4 Neutrophils (%) (Auto) 84.8 Lymphocytes (%) (Auto) 3.5 Monocytes (%) (Auto) 9.2 Eosinophils (%) (Auto) 2.3 Basophils (%) (Auto) 0.2 Neutrophils # (Auto) 29.3 Lymphocytes # (Auto) 1.2 Monocytes # (Auto) 3.2 Eosinophils # (Auto) 0.8 Basophils # (Auto) 0.1 CBC Comment AUTO DIFF Differential Total Cells Counted 100 Neutrophils % (Manual) 75 Band Neutrophils % 11 Lymphocytes % 2 Monocytes % 12 Neutrophils # (Manual) 29.8 Differential Comment FINAL DIFF MANUAL Dohle Bodies PRESENT Platelet Estimate LOW Platelet Morphology Comment ENLARGED Ovalocytes 1+ Robinson Cells 1+ Blood Urea Nitrogen 24 Creatinine 1.51 Random Glucose 128 Total Protein 7.0 Albumin 2.3 Calcium Level 8.2 Alkaline Phosphatase 248 Aspartate Amino Transf (AST/SGOT) 50 Alanine Aminotransferase (ALT/SGPT) 113 Total Bilirubin 0.9 Direct Bilirubin 0.6 Sodium Level 140 Potassium Level 3.5 Chloride Level 107 Carbon Dioxide Level 24.8 Anion Gap 8 Estimat Glomerular Filtration Rate 33 Lactic Acid Level 0.9 Indirect Bilirubin 0.3 B-Type Natriuretic Peptide 206 Lipase 69 Blood Gas Puncture Site RT RADIAL Blood Gas Patient Temperature 98.6 Blood Gas HCO3 21 Blood Gas Base Excess -4.3 Blood Gas Oxygen Saturation 94 Arterial Blood pH 7.34 Arterial Blood Partial Pressure CO2 39 Arterial Blood Partial Pressure O2 84 Arterial Blood Oxygen Content 12.9 Arterial Blood Carboxyhemoglobin 1.6 Arterial Blood Methemoglobin 1.2 Blood Gas Hemoglobin 9.7 Oxygen Delivery Device NRM Blood Gas Liter Flow 15 Blood Gas Inspired Oxygen 100 Date/Time Source Procedure Growth Status 11/24/16 02:42 Blood Peripheral Aerobic Blood Culture Pending Received 11/24/16 02:42 Blood Peripheral Anaerobic Blood Culture Pending Received Result Diagram: 11/24/16 0238 11/24/16 0238 Imaging Last Impressions Chest X-Ray 11/24/16 0000 Signed Impressions: Service Date/Time: Thursday, November 24, 2016 11:57 - CONCLUSION: 1. Interval placement of nasogastric catheter with tip beyond the GE junction omitted from the image. 2. Persistent diffuse coarse interstitial prominence likely reflecting interstitial edema/pneumonia superimposed on chronic interstitial changes. 3. Stable mild bibasilar airspace disease, likely atelectasis. Sam Buckner MD Abdomen/Pelvis CT 11/23/16 0000 Signed Impressions: Service Date/Time: Wednesday, November 23, 2016 21:46 - CONCLUSION: 1. 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 2. Mild head pancreatitis possible in the proper clinical setting. Patient has recently had ERCP and bile duct stone extraction. 3. Bibasilar pneumonia developing. Tiny pleural effusion on the right. 4. Chronic findings otherwise. Giovani Martinez MD Abdomen Ultrasound 11/23/16 0000 Signed Impressions: Service Date/Time: Wednesday, November 23, 2016 19:33 - CONCLUSION: 1. Somewhat limited study. Proximal superior mesenteric artery appears patent. 2. Mildly elevated flow velocities in the celiac and hepatic arteries of doubtful clinical significance. Giovani Martinez MD GI Procedure 11/21/16 0000 Signed Impressions: Service Date/Time: Monday, November 21, 2016 10:44 - CONCLUSION: ERCP as above. Reymundo Wilburn MD FACR Chest CT 11/20/16 1407 Signed Impressions: Service Date/Time: Sunday, November 20, 2016 15:13 - CONCLUSION: 1. Severe underlying emphysema. 2. Status post median sternotomy with postsurgical changes. Maikol Paredes MD Assessment and Plan Assessment and Plan The patient is an 86-year-old female with a history of coronary artery disease status post CABG who presented with choledocholithiasis now status post ERCP. 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 She has severe leukocytosis and severe abdominal tenderness to palpation. Clinical recommendation is to proceed with surgery for exploratory laparotomy and right colon resection with probable anastomosis but possible ostomy. If stable may also perform cholecystectomy. I had two long discussions with the patient and her family regarding the current diagnosis and treatment. I did state that without operative intervention she has almost 100% chance of mortality. I related that she may have somewhere around a 50% mortality with operative intervention, numerous days on the ventilator, possibly weeks in the ICU and weeks to months in the hospital followed by prolonged rehabilitation. I did emphasize this would be quite difficult for the patient with a questionable quality of life. Dr. Armstrong who knows the patient and family graciously also presented the diagnosis and treatment options and prognosis. After prolonged discussion with the patient and her family and consultation between the patient and her family she does decide to proceed with operative intervention. I spoke with the operating room and we'll proceed as soon as possible. Discussed Condition With Dr. Yunior Sofia RN Collin,Bryant TA Nov 24, 2016 14:19
--- NOTE | 2016-11-24 15:02 | PD.ID.CON ---
History of Present Illness Service ID Consult Requested By Dr Wang Reason for Consult leukocytosis Primary Care Physician Thee Lambert MD Diagnoses: History of Present Illness Patient is an 86-year-old female with multiple medical problems including atrial fibrillation, coronary artery disease, hypertension, and history of clinically to cholelithiasis requiring ERCP in 2014. She presented 3 days ago with complains of abdominal pain and chest pain ongoing for about for approximately [address] was c/w volvulus, but it was not confirmed on colonoscopy She presetntd afebrile but with extremely high WBC (39 K), whic only slightly improved and is trending back up gain She is hypoxic and requires non rebreather No BMs, no blood per rectum, no emesis She is not on pressors, but it was noted that her UOP substantially dropped and the urine is quite dark UA is not sgg of infx Pt is going to OR right now for exp. lap SHe denies prior abdominal surgerios Review of Systems Respiratory: COMPLAINS OF: Shortness of breath Gastrointestinal: COMPLAINS OF: Abdominal pain Except as stated in HPI: all other systems reviewed are Neg Past Family Social History Allergies: Coded Allergies: penicillin G (Unverified Allergy, Severe, HIVES, 10/23/16) Past Medical History 1. Coronary disease. 2. Three-vessel coronary artery bypass grafting in 2005. 3. Hypertension. 4. Hyperlipidemia. 5. GERD. 6. Past history of tobacco abuse. 7. Denies diabetes. 8. Choledocholithiasis, status post ERCP with stenting Past Surgical History 1. Three vessel coronary artery bypass grafting in 2005. 2. 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 3. Bladder suspension. 4. Hysterectomy. 5) ERCP 2014 Active Ordered Medications Medications where reviewed in EMR Antibiotics Include: levaquine vanco flagyl iv Family History patient is adopted and does not know her family history. Social History - The patient quit smoking 2004, prior to that she 1 ppd daily for 63 years. - Etoh prior use of 2-3 glasses of wine daily - NO illicit drugs - retired Physical Exam Vital Signs Vital Signs Date Time Temp Pulse Resp B/P (MAP) Pulse Ox O2 Delivery O2 Flow Rate FiO2 11/24/16 12:00 93 Non-Rebreather 15.00 11/24/16 12:00 98.6 101 28 106/57 (73) 91 11/24/16 11:47 95 Non-Rebreather 12.00 11/24/16 11:15 101 22 118/64 (82) 99 Non-Rebreather 15 11/24/16 11:00 100 22 124/67 (86) 99 Non-Rebreather 15 11/24/16 10:49 98.8 100 22 116/54 (74) 99 Non-Rebreather 15 11/24/16 10:00 92 Non-Rebreather 15.00 11/24/16 08:00 98.6 107 26 117/58 (77) 93 11/24/16 08:00 107 11/24/16 08:00 93 Non-Rebreather 15.00 11/24/16 06:00 93 Non-Rebreather 15.00 11/24/16 04:00 96 Non-Rebreather 15.00 11/24/16 04:00 97.4 104 18 103/51 (68) 93 11/24/16 02:00 93 Non-Rebreather 15.00 11/24/16 00:00 97.5 107 24 115/55 (75) 94 11/24/16 00:00 93 Non-Rebreather 15.00 11/23/16 22:00 108 11/23/16 20:00 94 Non-Rebreather 15.00 11/23/16 20:00 97.9 103 30 114/56 (75) 100 11/23/16 20:00 103 11/23/16 16:00 97.0 102 20 121/62 (81) 100 Physical Exam CONSTITUTIONAL/GENERAL: This is an adequately nourished patient, in no apparent distress. On 100 NRB TUBES/LINES/DRAINS: SKIN: No jaundice, rashes, or lesions. Skin temperature appropriate. Not diaphoretic. HEAD: Atraumatic. Normocephalic. EYES: Pupils equal and round and reactive. Extraocular motions intact. No scleral icterus. No injection or drainage. Fundi not examined. ENT: Hearing grossly normal. Nose without bleeding or purulent drainage. Throat without visible erythema, exudates, masses, or lesions. NECK: Trachea midline. Supple, nontender. CARDIOVASCULAR: Regular rate and rhythm + 2/6 systolic murmur, no gallops, or rubs. No JVD. Peripheral pulses symmetric. Well perfused perifery RESPIRATORY/CHEST: Symmetric, unlabored respirations. Clear to auscultation. Breath sounds equal bilaterally. No wheezes, rales, or rhonchi. GASTROINTESTINAL: Abdomen somewhat tense diffusely tender to palpation with guarding and rebound and quite distended especially in LUQ. No hepato- splenomegaly, or palpable masses. Bowel sounds present and decrased GENITOURINARY: Without palpable bladder distension. Sanchez catheter in place with small amount of brown urine MUSCULOSKELETAL: Extremities without clubbing, cyanosis, or edema. No joint tenderness or effusion noted. No calf tenderness. No mottling or clubbing. LYMPHATICS: No palpable cervical or supraclavicular adenopathy. NEUROLOGICAL: Awake and alert. Motor and sensory grossly within normal limits. Follows commands. Colear spech Moves all extremities. PSYCHIATRIC: No obvious anxiety/depression. no apparent hallucinations or other psychotic thought process. Laboratory Laboratory Tests Test 11/23/16 19:40 11/24/16 02:38 11/24/16 12:20 Urine Color YELLOW Urine Turbidity CLEAR Urine pH 5.0 Urine Specific Rochert 1.008 Urine Protein TRACE Urine Glucose (UA) NEG Urine Ketones NEG Urine Occult Blood NEG Urine Nitrite NEG Urine Bilirubin NEG Urine Urobilinogen LESS THAN 2.0 Urine Leukocyte Esterase NEG Urine Squamous Epithelial Cells <1 Urine Amorphous Sediment RARE Urine Hyaline Casts 1 Microscopic Urinalysis Comment CULT NOT INDICATED Nasal Screen MRSA (PCR) MRSA NOT DETECTED White Blood Count 34.6 Red Blood Count 3.86 Hemoglobin 10.2 Hematocrit 31.7 Mean Corpuscular Volume 82.3 Mean Corpuscular Hemoglobin 26.4 Mean Corpuscular Hemoglobin Concent 32.1 Red Cell Distribution Width 16.2 Platelet Count 126 Mean Platelet Volume 10.4 Neutrophils (%) (Auto) 84.8 Lymphocytes (%) (Auto) 3.5 Monocytes (%) (Auto) 9.2 Eosinophils (%) (Auto) 2.3 Basophils (%) (Auto) 0.2 Neutrophils # (Auto) 29.3 Lymphocytes # (Auto) 1.2 Monocytes # (Auto) 3.2 Eosinophils # (Auto) 0.8 Basophils # (Auto) 0.1 CBC Comment AUTO DIFF Differential Total Cells Counted 100 Neutrophils % (Manual) 75 Band Neutrophils % 11 Lymphocytes % 2 Monocytes % 12 Neutrophils # (Manual) 29.8 Differential Comment FINAL DIFF MANUAL Dohle Bodies PRESENT Platelet Estimate LOW Platelet Morphology Comment ENLARGED Ovalocytes 1+ Rinard Cells 1+ Blood Urea Nitrogen 24 Creatinine 1.51 Random Glucose 128 Total Protein 7.0 Albumin 2.3 Calcium Level 8.2 Alkaline Phosphatase 248 Aspartate Amino Transf (AST/SGOT) 50 Alanine Aminotransferase (ALT/SGPT) 113 Total Bilirubin 0.9 Direct Bilirubin 0.6 Sodium Level 140 Potassium Level 3.5 Chloride Level 107 Carbon Dioxide Level 24.8 Anion Gap 8 Estimat Glomerular Filtration Rate 33 Lactic Acid Level 0.9 Indirect Bilirubin 0.3 B-Type Natriuretic Peptide 206 Lipase 69 Blood Gas Puncture Site RT RADIAL Blood Gas Patient Temperature 98.6 Blood Gas HCO3 21 Blood Gas Base Excess -4.3 Blood Gas Oxygen Saturation 94 Arterial Blood pH 7.34 Arterial Blood Partial Pressure CO2 39 Arterial Blood Partial Pressure O2 84 Arterial Blood Oxygen Content 12.9 Arterial Blood Carboxyhemoglobin 1.6 Arterial Blood Methemoglobin 1.2 Blood Gas Hemoglobin 9.7 Oxygen Delivery Device NRM Blood Gas Liter Flow 15 Blood Gas Inspired Oxygen 100 Date/Time Source Procedure Growth Status 11/24/16 02:42 Blood Peripheral Aerobic Blood Culture Pending Received 11/24/16 02:42 Blood Peripheral Anaerobic Blood Culture Pending Received Result Diagram: 11/24/16 0238 11/24/16 0238 Imaging Last Impressions Chest X-Ray 11/24/16 0000 Signed Impressions: Service Date/Time: Thursday, November 24, 2016 11:57 - CONCLUSION: 1. Interval placement of nasogastric catheter with tip beyond the GE junction omitted from the image. 2. Persistent diffuse coarse interstitial prominence likely reflecting interstitial edema/pneumonia superimposed on chronic interstitial changes. 3. Stable mild bibasilar airspace disease, likely atelectasis. Sam Buckner MD Abdomen/Pelvis CT 11/23/16 0000 Signed Impressions: Service Date/Time: Wednesday, November 23, 2016 21:46 - CONCLUSION: 1. 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 2. Mild head pancreatitis possible in the proper clinical setting. Patient has recently had ERCP and bile duct stone extraction. 3. Bibasilar pneumonia developing. Tiny pleural effusion on the right. 4. Chronic findings otherwise. Giovani Martinez MD Abdomen Ultrasound 11/23/16 0000 Signed Impressions: Service Date/Time: Wednesday, November 23, 2016 19:33 - CONCLUSION: 1. Somewhat limited study. Proximal superior mesenteric artery appears patent. 2. Mildly elevated flow velocities in the celiac and hepatic arteries of doubtful clinical significance. Giovani Martinez MD GI Procedure 11/21/16 0000 Signed Impressions: Service Date/Time: Monday, November 21, 2016 10:44 - CONCLUSION: ERCP as above. Reymundo Wilburn MD FACR Chest CT 11/20/16 1407 Signed Impressions: Service Date/Time: Sunday, November 20, 2016 15:13 - CONCLUSION: 1. Severe underlying emphysema. 2. Status post median sternotomy with postsurgical changes. Maikol Paredes MD Assessment and Plan Assessment and Plan Intraabdominal acute process (obstruction vs volvulos vs ischemia) Sepsis from intraac=bdominal source (leukocytoss, leukemoid reaction, hypoxia, JOSUE) leukocytoss, leukemoid reaction Pt and her and othe rfamily members deny that pt ever had problems with PCN. Pt states she was given PCN many years ago and it was uneventful Gallstones sp ERCP 2 yrs ago REc': will fu op findings dc piper, blake, rafael start zosyn remove PCN from allergies Discussed Condition With Dr Wang pharmacist family caseworker @ [facility] Sharon Samayoa MD Nov 24, 2016 15:02
[2016-11-24] MEDS: PIPERACIL-TAZO 3.375 GM PREMIX 50 ML IV SCH ×2 (15:22→20:45)
--- NOTE | 2016-11-24 17:28 | HHI.PR ---
cc: Bryant Polanco MD Immediate Post Op Note Procedure Date: Nov 24, 2016 Pre Op Diagnosis: (1) Cecal volvulus Post Op Diagnosis: (1) Cecal volvulus Surgeon: Bryant Polanco Associate Professor Of Music(s): Matt Procedure: Ex lap, right colectomy, cholecystectomy Findings: cecal volvulus, extreme dilation of right colon, gallstones Complications: none Specimen(s) removed: right colon gallbladder Estimated blood loss: 100cc Anesthesia: General Drains: None Patient to: PACU Patient Condition: Critical Date/Time of Procedure: SEE SURGICAL CARE RECORD Bryant Polanco MD Nov 24, 2016 17:28
[2016-11-24] MEDS ORDERED: PROPOFOL 1000 MG/100 ML INJ 100 ML ONE (17:58)
[2016-11-24] MEDS ORDERED: NS + KCL 20 MEQ INJ 1,000 ML ONE (18:08)
[2016-11-24 18:24] LABS: HEMATOCRIT 30.1 % (35.0-46.0); MEAN CELL VOLUME 82.9 FL (80.0-100.0); MEAN CORPUSCULAR HEMOGLOBIN 27.2 PG (27.0-34.0); MEAN CORPUSCULAR HGB CONC 32.8 % (32.0-36.0); PLATELET COUNT 149 TH/MM3 (150-450); RED BLOOD COUNT 3.63 MIL/MM3 (4.00-5.30); RED CELL DISTRIBUTION WIDTH 16.7 % (11.6-17.2); WHITE BLOOD COUNT 28.8 TH/MM3 (4.0-11.0)
--- NOTE | 2016-11-24 18:25 | RADRPT ---
EXAM DATE/TIME: 11/24/2016 17:55 [facility] COMPARISON: CHEST SINGLE AP, November 24, 2016, 11:57. INDICATIONS : Central line placement. MEDICAL HISTORY : None. SURGICAL HISTORY : None. ENCOUNTER: Subsequent ACUITY: 3 days PAIN SCORE: Non-responsive. LOCATION: Bilateral chest FINDINGS: Basilar predominant interstitial opacities and small bilateral pleural effusions persist without sign ificant change. Patient is now intubated. Endotracheal tube tip is approximately 4 cm above the kashif. There is also a new right internal jugular centimeters catheter with tip at the atriocaval junction. There is no p neumothorax. Nasogastric tube courses into the stomach. CONCLUSION: 1. Appropriately positioned endotracheal tube and right internal jugular central venous catheter as a trinity. No pneumothorax or other acute complication. 2. Basilar predominant infiltrates and small pleural effusions without significant change. Giovani Martinez MD on November 24, 2016 at 18:22 Board Certified Radiologist. This report was verified electronically.
[2016-11-24 18:26] LABS: HEMO FLAGS AUTO DIFF
[2016-11-24 18:49] LABS: BICARBONATE 21.1 MEQ/L (21.0-32.0); POTASSIUM 4.2 MEQ/L (3.5-5.1)
[2016-11-24 19:14] LABS: POLYS (SEG NEUTROPHILS) 93 % (16-70); WBC DIFF SAMPLE 100
[2016-11-24 19:15] LABS: BANDS 5 % (0-6); NEUTROPHIL # MANUAL DIFF 28.2 TH/MM3 (1.8-7.7)
[2016-11-24 19:17] LABS: ACANTHOCYTES 2+ (NORMAL); BURR CELLS 2+ (NORMAL); KERATOCYTES OCC (NORMAL)
[2016-11-24 19:18] LABS: PLATELET ESTIMATE SMEAR LOW (NORMAL); PLATELET MORPHOLOGY NORMAL (NORMAL); SCAN/DIFF FINAL DIFF MANUAL
[2016-11-24 19:37] LABS: INTERNATIONAL NORMALIZED RATIO 1.1 RATIO; PROTHROMBIN TIME - PATIENT 12.3 SEC (9.8-11.6)
[2016-11-24] MEDS: AMITRIPTYLINE HCL 10 MG TAB PO SCH (20:47)
[2016-11-24] MEDS ORDERED: PROPOFOL 1000 MG/100 ML IV PRN (21:15)
[2016-11-24 23:01] LABS: BLOOD GAS BASE EXCESS -7.8 mmol/L (-2-2); BLOOD GAS CARBOXYHEMOGLOBIN 1.7 % (0-4); BLOOD GAS HCO3 17 mmol/L (22-26); BLOOD GAS METHEMOGLOBIN 1.2 % (0-2); BLOOD GAS O2 HGB SATURATION 91 % (90-100); BLOOD GAS OXYGEN CONTENT 11.7 Vol % (12.0-20.0); BLOOD GAS PCO2 36 mmHg (38-42); BLOOD GAS PO2 70 mmHg (61-120); BLOOD GAS TOTAL HGB 9.1 G/DL (12.0-16.0); CRITICAL VALUE NO; DRAW SITE ART LINE; FIO2 50 %; OXYGEN DEVICE VENTILATOR; STAT NO; TEMP CORR TO 98.6; VENT SETTINGS AC 14/500/5PEEP
[2016-11-25] VITALS (14 sets, daily range): BP systolic 115–125; BP diastolic 54–58; PULSE 106–133; RESP 14–28; TEMP 97.8–99.7; O2SAT 93–95
[2016-11-25] MEDS: INSULIN NovoLIN REGULAR SUPPLEMENTAL SCALE SQ SCH ×7 (00:15→23:48)
[2016-11-25] MEDS: RESP: ALBUTEROL 2.5 MG/IPRATROPIUM 0.5 MG NEB (SCH) NEB ×5 (00:26→20:19)
[2016-11-25] MEDS: methylPREDNISolone SOD SUCC 40 MG/1 ML VIAL IV PUSH SCH ×3 (00:34→12:48)
[2016-11-25] MEDS: PIPERACIL-TAZO 3.375 GM PREMIX 50 ML IV SCH (03:22)
[2016-11-25] MEDS ORDERED: SODIUM CHLORID 0.9% 500 ML INJ 500 ML IV SCH (03:30)
[2016-11-25] MEDS: DILTIAZEM INJ 125 MG in SODIUM CHLORIDE 0.9% INJ 100 ML IV PRN (03:51)
[2016-11-25] MEDS: HYDROmorphone HCL PF 1 MG/ML VIAL IV PUSH PRN (04:11)
[2016-11-25 04:35] LABS: AUTOMATED NEUTROPHIL # 39.5 TH/MM3 (1.8-7.7); BASOPHIL # 0.3 TH/MM3 (0-0.2); BASOPHIL % 0.7 % (0.0-2.0); HEMATOCRIT 28.5 % (35.0-46.0); LYMPH % 1.5 % (9.0-44.0); LYMPHOCYTE # 0.6 TH/MM3 (1.0-4.8); MEAN CELL VOLUME 82.1 FL (80.0-100.0); MEAN CORPUSCULAR HEMOGLOBIN 26.9 PG (27.0-34.0); MEAN CORPUSCULAR HGB CONC 32.7 % (32.0-36.0); NEUT % 96.8 % (16.0-70.0); PLATELET COUNT 120 TH/MM3 (150-450); RED BLOOD COUNT 3.47 MIL/MM3 (4.00-5.30); RED CELL DISTRIBUTION WIDTH 16.4 % (11.6-17.2); WHITE BLOOD COUNT 40.9 TH/MM3 (4.0-11.0)
[2016-11-25 04:44] LABS: ALKALINE PHOSPHATASE 199 U/L (45-117); ALT (GPT) 89 U/L (10-53); ANION GAP 12 MEQ/L (5-15); AST (GOT) 105 U/L (15-37); BICARBONATE 20.6 MEQ/L (21.0-32.0); BLOOD UREA NITROGEN 33 MG/DL (7-18); CHLORIDE 110 MEQ/L (98-107); GLOMERULAR FILTRATION RATE 25 ML/MIN (>89); POTASSIUM 3.3 MEQ/L (3.5-5.1); SODIUM (NA) 143 MEQ/L (136-145); TOTAL BILIRUBIN ADULT 0.9 MG/DL (0.2-1.0)
[2016-11-25 04:46] LABS: HEMO FLAGS AUTO DIFF
--- NOTE | 2016-11-25 07:29 | HHI.CCPN ---
Subjective Remarks/Hospital Course 86 y/o woman developed worsening SOB this afternoon associated with marked leukocytosis. Recent biliary instrumentation for obstruction 48 hours ago and probable sepsis. On appropriate antibiotics. Requiring NRBM now for oxygenation to 97%. Visibly labored breathing. CXR with interstitial edema. EF 35% 2014. Move to ICU. 11/24: Patient s/p colonoscopy this morning which showed mod. diverticulosis in sigmoid colon and hemorrhoids. Remains on NRB with good sats. Afebrile. Cr increased 1.51 from 1.08. 11/25 Patient s/p Ex lap, right colectomy and cholecystectomy. She kept intubated postop went into Afib with RVR overnight and placed on Cardizem drip 10mg/hr. Objective Vital Signs Date Time Temp Pulse Resp B/P (MAP) Pulse Ox O2 Delivery O2 Flow Rate FiO2 11/25/16 04:40 93 40 11/25/16 04:00 98.2 133 14 115/57 (76) 11/24/16 18:15 Mechanical Ventilator 11/24/16 14:00 15.00 Intake and Output 11/25/16 11/25/16 11/26/16 08:00 16:00 00:00 Output Total 1050 ml Balance -1050 ml Result Diagram: 11/25/16 0400 11/25/16 0400 Other Results Laboratory Tests Test 11/24/16 12:20 11/24/16 18:00 11/24/16 18:39 11/24/16 19:49 Blood Gas Puncture Site RT RADIAL ART LINE Blood Gas Patient Temperature 98.6 98.6 Blood Gas HCO3 21 mmol/L 17 mmol/L Blood Gas Base Excess -4.3 mmol/L -7.8 mmol/L Blood Gas Oxygen Saturation 94 % 91 % Arterial Blood pH 7.34 7.30 Arterial Blood Partial Pressure CO2 39 mmHg 36 mmHg Arterial Blood Partial Pressure O2 84 mmHg 70 mmHg Arterial Blood Oxygen Content 12.9 Vol % 11.7 Vol % Arterial Blood Carboxyhemoglobin 1.6 % 1.7 % Arterial Blood Methemoglobin 1.2 % 1.2 % Blood Gas Hemoglobin 9.7 G/DL 9.1 G/DL Oxygen Delivery Device NRM VENTILATOR Blood Gas Liter Flow 15 L/M Blood Gas Inspired Oxygen 100 % 50 % White Blood Count 28.8 TH/MM3 Red Blood Count 3.63 MIL/MM3 Hemoglobin 9.9 GM/DL Hematocrit 30.1 % Mean Corpuscular Volume 82.9 FL Mean Corpuscular Hemoglobin 27.2 PG Mean Corpuscular Hemoglobin Concent 32.8 % Red Cell Distribution Width 16.7 % Platelet Count 149 TH/MM3 Mean Platelet Volume 10.5 FL CBC Comment AUTO DIFF Differential Total Cells Counted 100 Neutrophils % (Manual) 93 % Band Neutrophils % 5 % Lymphocytes % 1 % Monocytes % 1 % Neutrophils # (Manual) 28.2 TH/MM3 Differential Comment FINAL DIFF MANUAL Platelet Estimate LOW Platelet Morphology Comment NORMAL [place] Cells 2+ Acanthocytes 2+ Keratocytes OCC Blood Urea Nitrogen 31 MG/DL Creatinine 1.86 MG/DL Random Glucose 135 MG/DL Calcium Level 8.5 MG/DL Sodium Level 140 MEQ/L Potassium Level 4.2 MEQ/L Chloride Level 108 MEQ/L Carbon Dioxide Level 21.1 MEQ/L Anion Gap 11 MEQ/L Estimat Glomerular Filtration Rate 26 ML/MIN Prothrombin Time 12.3 SEC Prothromb Time International Ratio 1.1 RATIO Blood Gas Ventilator Setting AC 14/500/5PEEP Test 11/25/16 04:00 White Blood Count 40.9 TH/MM3 Red Blood Count 3.47 MIL/MM3 Hemoglobin 9.3 GM/DL Hematocrit 28.5 % Mean Corpuscular Volume 82.1 FL Mean Corpuscular Hemoglobin 26.9 PG Mean Corpuscular Hemoglobin Concent 32.7 % Red Cell Distribution Width 16.4 % Platelet Count 120 TH/MM3 Mean Platelet Volume 10.9 FL Neutrophils (%) (Auto) 96.8 % Lymphocytes (%) (Auto) 1.5 % Monocytes (%) (Auto) 1.0 % Eosinophils (%) (Auto) 0.0 % Basophils (%) (Auto) 0.7 % Neutrophils # (Auto) 39.5 TH/MM3 Lymphocytes # (Auto) 0.6 TH/MM3 Monocytes # (Auto) 0.4 TH/MM3 Eosinophils # (Auto) 0.0 TH/MM3 Basophils # (Auto) 0.3 TH/MM3 CBC Comment AUTO DIFF Blood Urea Nitrogen 33 MG/DL Creatinine 1.89 MG/DL Random Glucose 133 MG/DL Total Protein 6.1 GM/DL Albumin 2.0 GM/DL Calcium Level 8.5 MG/DL Alkaline Phosphatase 199 U/L Aspartate Amino Transf (AST/SGOT) 105 U/L Alanine Aminotransferase (ALT/SGPT) 89 U/L Total Bilirubin 0.9 MG/DL Sodium Level 143 MEQ/L Potassium Level 3.3 MEQ/L Chloride Level 110 MEQ/L Carbon Dioxide Level 20.6 MEQ/L Anion Gap 12 MEQ/L Estimat Glomerular Filtration Rate 25 ML/MIN Imaging Last Impressions Chest X-Ray 11/24/16 0000 Signed Impressions: Service Date/Time: Thursday, November 24, 2016 17:55 - CONCLUSION: 1. Appropriately positioned endotracheal tube and right internal jugular central venous catheter as above. No pneumothorax or other acute complication. 2. Basilar predominant infiltrates and small pleural effusions without significant change. Giovani Martinez MD Abdomen/Pelvis CT 11/23/16 0000 Signed Impressions: Service Date/Time: Wednesday, November 23, 2016 21:46 - CONCLUSION: 1. 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 2. Mild head pancreatitis possible in the proper clinical setting. Patient has recently had ERCP and bile duct stone extraction. 3. Bibasilar pneumonia developing. Tiny pleural effusion on the right. 4. Chronic findings otherwise. Giovani Martinez MD Abdomen Ultrasound 11/23/16 0000 Signed Impressions: Service Date/Time: Wednesday, November 23, 2016 19:33 - CONCLUSION: 1. Somewhat limited study. Proximal superior mesenteric artery appears patent. 2. Mildly elevated flow velocities in the celiac and hepatic arteries of doubtful clinical significance. Giovani Martinez MD GI Procedure 11/21/16 0000 Signed Impressions: Service Date/Time: Monday, November 21, 2016 10:44 - CONCLUSION: ERCP as above. Reymundo Wilburn MD FACR Chest CT 11/20/16 1407 Signed Impressions: Service Date/Time: Sunday, November 20, 2016 15:13 - CONCLUSION: 1. Severe underlying emphysema. 2. Status post median sternotomy with postsurgical changes. Maikol Paredes MD Objective Remarks GENERAL: Patient is 86 yo intubated SKIN: Warm and dry. HEAD: Normocephalic. EYES: No scleral icterus. No injection or drainage. NECK: Supple, trachea midline. No JVD or lymphadenopathy. CARDIOVASCULAR: Tachycardic without murmurs, gallops, or rubs. RESPIRATORY: Breath sounds equal bilaterally. No accessory muscle use. GASTROINTESTINAL: Abdomen soft, tenderness on palpation.. MUSCULOSKELETAL: No cyanosis, or edema. Neuro: Intubated however she is awake and alert. A/P Assessment and Plan 1. VDRF 2. 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 S/P biliary manipulation ERCP for obstructed duct with stones and sludge . 4. Systolic heart failure. 5 Leukocytosis 6 Anemia, thrombocytopenia 7 Elevated LFT;s 8 JOSUE 9 Afib Plan: Neuro: Place on Diprivan infusion for sedation. Daily sedation vacation. Dilaudid PRN for pain Pulm: Continue with vent support and maintain sat >92% Bronchodilators, ICU vent bundle, check CXR SBT daily as adelina. CT chest 11/20: Severe underlying emphysema. Status post median sternotomy with postsurgical changes. Solumederol 40mg Q6 x 4 doses, CV: Wean off Cardizem drip -Monitor HR and BP keep MAP>65mmHg Lactic acid 11/23: 0.9 Echo from 09/2014 showed EF 35%. For 2D echo On ASA, Procardia XL 60mg daily. Lipitor held ( elevated LFT's) : Monitor renal function, I/O's, avoid nephrotoxins Change IVF D5NS@42ml/hr, Cr: 1.89 today, K:3.3 will give KCL 20meq IV x1 GI: NPO, monitor LFT;s Cecal Volvulus s/p Exp lap, right colectomy and cholecystectomy 11/24 s/p Colonoscopy 11/24 showed Diverticulosis in sigmoid colon, hemorrhoids CT abd/pelvis: Bowel gas pattern most compatible a cecal volvulus and does appear to be contributing to associated obstruction. Mild head pancreatitis possible in the proper clinical setting. Patient has recently had ERCP and bile duct stone extraction. Bibasilar pneumonia developing. Tiny pleural effusion on the right US abdomen: Proximal superior mesenteric artery appears patent. ID: Continue with abx per ID ( Zosyn) Monitor for signs of infections ( Fever, WBC) Follow up on BC 11/24: NGTD . Heme: Monitor CBC Endo: SSI with accuchecks GI prophylaxis- Protonix 40mg daily DVT prophylaxis- Lovenox 30mg daily CCT 30 mins Marian Rodríguez MD Nov 25, 2016 07:29
[2016-11-25] MEDS ORDERED: DEXT 5%-NACL 0.9% 1000 ML INJ 1,000 ML IV SCH (07:30)
[2016-11-25] MEDS: PROPOFOL 1000 MG/100 ML INJ 100 ML IV PRN ×3 (07:30→23:46)
--- NOTE | 2016-11-25 07:57 | RADRPT ---
EXAM DATE/TIME: 11/25/2016 07:30 [facility] COMPARISON: CHEST SINGLE AP, November 20, 2016, 13:24. CHEST SINGLE AP, November 23, 2016, 12:58. CHEST SINGL E AP, November 24, 2016, 17:55. INDICATIONS : Shortness of breath. MEDICAL HISTORY : Hypertension. Cardiovascular disease. CVA. SURGICAL HISTORY : Hysterectomy. CABG. ENCOUNTER: Subsequent ACUITY: 3 days PAIN SCORE: Non-responsive. LOCATION: Bilateral chest FINDINGS: The patient is status post sternotomy. ET tube, NG tube, right internal jugular central line are well placed. There is diffuse increased interstitial markings throughout. There is some suspected atelect asis at the bases. There is blunting of the left costophrenic angle which may suggest a small left ef fusion. The heart size is normal. CONCLUSION: 1. Diffuse increased interstitial markings likely related to diffuse processes such as edema. This ap pears unchanged from the prior exam. 2. Possible small left effusion. 3. ET tube, NG tube and right internal jugular central line are well placed. Giovani Ruiz MD on November 25, 2016 at 7:52 Board Certified Radiologist. This report was verified electronically.
[2016-11-25] MEDS ORDERED: POTASSIUM CHLOR 20 MEQ PREMIX 100 ML IV ONE (08:00)
[2016-11-25 08:42] LABS: BANDS 17 % (0-6); BURR CELLS 2+ (NORMAL); NEUTROPHIL # MANUAL DIFF 36.8 TH/MM3 (1.8-7.7); PLATELET ESTIMATE SMEAR LOW (NORMAL); PLATELET MORPHOLOGY NORMAL (NORMAL); POLYS (SEG NEUTROPHILS) 73 % (16-70); SCAN/DIFF FINAL DIFF MANUAL; WBC DIFF SAMPLE 100
[2016-11-25 08:43] LABS: ACANTHOCYTES 2+ (NORMAL); KERATOCYTES OCC (NORMAL)
[2016-11-25 08:45] LABS: DOHLE BODIES PRESENT (NONE SEEN); TOXIC VACUOLATION PRESENT (NONE SEEN)
[2016-11-25] MEDS: NIFEdipine 60 MG SUSTAINED RELEASE TAB PO SCH (09:00)
[2016-11-25] MEDS: ASPIRIN 81 MG CHEW TAB CHEW SCH (09:10)
[2016-11-25] MEDS: PANTOPRAZOLE SODIUM 40 MG VIAL IV PUSH SCH (09:10)
[2016-11-25] MEDS: URSODIOL 300 MG CAP PO SCH ×2 (09:10→21:18)
[2016-11-25] MEDS: CILOSTAZOL 100 MG TAB PO SCH ×2 (09:10→21:18)
[2016-11-25] MEDS: PIPERACIL-TAZO 2.25 GM PREMIX 50 ML IV SCH ×3 (09:10→21:18)
[2016-11-25] MEDS: SODIUM CHLORIDE 0.9% FLUSH 10 ML FLUSH IV FLUSH SCH ×2 (09:11→21:19)
[2016-11-25 10:07] LABS: BLOOD GAS BASE EXCESS -7.1 mmol/L (-2-2); BLOOD GAS CARBOXYHEMOGLOBIN 1.7 % (0-4); BLOOD GAS HCO3 17 mmol/L (22-26); BLOOD GAS METHEMOGLOBIN 1.3 % (0-2); BLOOD GAS O2 HGB SATURATION 93 % (90-100); BLOOD GAS OXYGEN CONTENT 11.9 Vol % (12.0-20.0); BLOOD GAS PCO2 29 mmHg (38-42); BLOOD GAS PO2 80 mmHg (61-120); TEMP CORR TO 98.6
[2016-11-25 10:08] LABS: CRITICAL VALUE NO; DRAW SITE ART LINE; FIO2 40 %; OXYGEN DEVICE VENTILATOR; STAT NO; VENT SETTINGS AC14/500/+5PEEP
--- NOTE | 2016-11-25 12:28 | HHI.GIFU ---
Subjective Remarks Lying in bed. Intubated. Abdomen continues to be tender. (Bessy Hernandez) Objective Vitals I&O Vital Signs Date Time Temp Pulse Resp B/P (MAP) Pulse Ox O2 Delivery O2 Flow Rate FiO2 11/25/16 09:34 94 40 11/25/16 08:00 106 11/25/16 08:00 98.0 106 28 115/54 (74) 94 11/25/16 08:00 40 11/25/16 04:40 93 40 11/25/16 04:00 40 11/25/16 04:00 98.2 133 14 115/57 (76) 94 11/25/16 03:51 122 120/60 11/25/16 01:35 94 40 11/25/16 00:00 98.3 110 14 116/56 (76) 95 11/25/16 00:00 40 11/24/16 22:47 93 40 11/24/16 20:49 96 40 11/24/16 20:00 40 11/24/16 20:00 107 11/24/16 20:00 98.2 107 14 99/52 (68) 97 11/24/16 18:15 110 20 102/52 (69) 95 Mechanical Ventilator 60 11/24/16 18:05 110 20 99/51 (67) 90 Mechanical Ventilator 60 11/24/16 18:00 94 60 11/24/16 17:55 110 20 107/58 (74) 91 Mechanical Ventilator 60 11/24/16 17:45 98.7 107 20 100/49 (66) 95 Mechanical Ventilator 60 11/24/16 14:00 93 Non-Rebreather 15.00 I/O 11/24/16 11/24/16 11/24/16 11/25/16 11/25/16 11/25/16 06:59 14:59 22:59 06:59 14:59 22:59 Intake Total 0 ml 200 ml 1250 ml 50 ml Output Total 1150 ml 275 ml 1050 ml Balance -1150 ml 200 ml 975 ml -1050 ml 50 ml Intake Oral 0 ml IV Total 1250 ml 50 ml Other 200 ml Output Urine Total 900 ml 175 ml 950 ml Gastric Drainage Total 250 ml 100 ml Estimated Blood Loss 100 ml # Bowel Movements 0 0 Laboratory Laboratory Tests Test 11/24/16 12:20 11/24/16 18:00 11/24/16 18:39 11/24/16 19:49 Blood Gas Puncture Site RT RADIAL ART LINE Blood Gas Patient Temperature 98.6 98.6 Blood Gas HCO3 21 17 Blood Gas Base Excess -4.3 -7.8 Blood Gas Oxygen Saturation 94 91 Arterial Blood pH 7.34 7.30 Arterial Blood Partial Pressure CO2 39 36 Arterial Blood Partial Pressure O2 84 70 Arterial Blood Oxygen Content 12.9 11.7 Arterial Blood Carboxyhemoglobin 1.6 1.7 Arterial Blood Methemoglobin 1.2 1.2 Blood Gas Hemoglobin 9.7 9.1 Oxygen Delivery Device NRM VENTILATOR Blood Gas Liter Flow 15 Blood Gas Inspired Oxygen 100 50 White Blood Count 28.8 Red Blood Count 3.63 Hemoglobin 9.9 Hematocrit 30.1 Mean Corpuscular Volume 82.9 Mean Corpuscular Hemoglobin 27.2 Mean Corpuscular Hemoglobin Concent 32.8 Red Cell Distribution Width 16.7 Platelet Count 149 Mean Platelet Volume 10.5 CBC Comment AUTO DIFF Differential Total Cells Counted 100 Neutrophils % (Manual) 93 Band Neutrophils % 5 Lymphocytes % 1 Monocytes % 1 Neutrophils # (Manual) 28.2 Differential Comment FINAL DIFF MANUAL Platelet Estimate LOW Platelet Morphology Comment NORMAL [place] Cells 2+ Acanthocytes 2+ Keratocytes OCC Blood Urea Nitrogen 31 Creatinine 1.86 Random Glucose 135 Calcium Level 8.5 Sodium Level 140 Potassium Level 4.2 Chloride Level 108 Carbon Dioxide Level 21.1 Anion Gap 11 Estimat Glomerular Filtration Rate 26 Prothrombin Time 12.3 Prothromb Time International Ratio 1.1 Blood Gas Ventilator Setting AC 14/500/5PEEP Test 11/25/16 04:00 11/25/16 10:02 White Blood Count 40.9 Red Blood Count 3.47 Hemoglobin 9.3 Hematocrit 28.5 Mean Corpuscular Volume 82.1 Mean Corpuscular Hemoglobin 26.9 Mean Corpuscular Hemoglobin Concent 32.7 Red Cell Distribution Width 16.4 Platelet Count 120 Mean Platelet Volume 10.9 Neutrophils (%) (Auto) 96.8 Lymphocytes (%) (Auto) 1.5 Monocytes (%) (Auto) 1.0 Eosinophils (%) (Auto) 0.0 Basophils (%) (Auto) 0.7 Neutrophils # (Auto) 39.5 Lymphocytes # (Auto) 0.6 Monocytes # (Auto) 0.4 Eosinophils # (Auto) 0.0 Basophils # (Auto) 0.3 CBC Comment AUTO DIFF Differential Total Cells Counted 100 Neutrophils % (Manual) 73 Band Neutrophils % 17 Lymphocytes % 1 Monocytes % 9 Neutrophils # (Manual) 36.8 Differential Comment FINAL DIFF MANUAL Toxic Vacuolation PRESENT Dohle Bodies PRESENT Platelet Estimate LOW Platelet Morphology Comment NORMAL Kelechi Cells 2+ Acanthocytes 2+ Keratocytes OCC Blood Urea Nitrogen 33 Creatinine 1.89 Random Glucose 133 Total Protein 6.1 Albumin 2.0 Calcium Level 8.5 Alkaline Phosphatase 199 Aspartate Amino Transf (AST/SGOT) 105 Alanine Aminotransferase (ALT/SGPT) 89 Total Bilirubin 0.9 Sodium Level 143 Potassium Level 3.3 Chloride Level 110 Carbon Dioxide Level 20.6 Anion Gap 12 Estimat Glomerular Filtration Rate 25 Blood Gas Puncture Site ART LINE Blood Gas Patient Temperature 98.6 Blood Gas HCO3 17 Blood Gas Base Excess -7.1 Blood Gas Oxygen Saturation 93 Arterial Blood pH 7.38 Arterial Blood Partial Pressure CO2 29 Arterial Blood Partial Pressure O2 80 Arterial Blood Oxygen Content 11.9 Arterial Blood Carboxyhemoglobin 1.7 Arterial Blood Methemoglobin 1.3 Blood Gas Hemoglobin 9.0 Oxygen Delivery Device VENTILATOR Blood Gas Ventilator Setting AC14/500/+5PEEP Blood Gas Inspired Oxygen 40 Date/Time Source Procedure Growth Status 11/24/16 02:42 Blood Peripheral Aerobic Blood Culture - Preliminary NO GROWTH IN 1 DAY Resulted 11/24/16 02:42 Blood Peripheral Anaerobic Blood Culture - Preliminary NO GROWTH IN 1 DAY Resulted Imaging Last Impressions Chest X-Ray 11/25/16 0000 Signed Impressions: Service Date/Time: Friday, November 25, 2016 07:30 - CONCLUSION: 1. Diffuse increased interstitial markings likely related to diffuse processes such as edema. This appears unchanged from the prior exam. 2. Possible small left effusion. 3. ET tube, NG tube and right internal jugular central line are well placed. Giovani Ruiz MD Abdomen/Pelvis CT 11/23/16 0000 Signed Impressions: Service Date/Time: Wednesday, November 23, 2016 21:46 - CONCLUSION: 1. 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 2. Mild head pancreatitis possible in the proper clinical setting. Patient has recently had ERCP and bile duct stone extraction. 3. Bibasilar pneumonia developing. Tiny pleural effusion on the right. 4. Chronic findings otherwise. Giovani Martinez MD Abdomen Ultrasound 11/23/16 0000 Signed Impressions: Service Date/Time: Wednesday, November 23, 2016 19:33 - CONCLUSION: 1. Somewhat limited study. Proximal superior mesenteric artery appears patent. 2. Mildly elevated flow velocities in the celiac and hepatic arteries of doubtful clinical significance. Giovani Martinez MD GI Procedure 11/21/16 0000 Signed Impressions: Service Date/Time: Monday, November 21, 2016 10:44 - CONCLUSION: ERCP as above. Reymundo Wilburn MD FACR Chest CT 11/20/16 1407 Signed Impressions: Service Date/Time: Sunday, November 20, 2016 15:13 - CONCLUSION: 1. Severe underlying emphysema. 2. Status post median sternotomy with postsurgical changes. Maikol Paredes MD Physical Exam HEENT: Normocephalic; atraumatic; no jaundice. CHEST: CTA CARDIAC: Tachycardic ABDOMEN: Soft, abdomen TTP; bowels sounds are present EXTREMITIES: No clubbing, cyanosis, or edema. SKIN: Normal; no rash; no jaundice. 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 Had more stones removed at [facility]. CT shows abnml gas pattern whcih may represent ileus. pt had formed BM yesterday. s/p ERCP --> ERCP was done no sphincterotomy was done because she already have one before and cannulation was achieved without difficulty there were multiple filling defects in the common bile duct balloon sweep of the duct revealed multiple stones and sludge the duct was flushed with saline and then included cholangiogram was negative for any filling defect so stent was not place - elevated LFTs - on admission Tbil 4.1, AST 293, ALT 479, ALP 378. LFTs trending down - leukocytosis, subjective fever - wbc trending down on flagyl and levaquin 11/25--Continues to have abdominal tenderness. Patient is s/p incomplete colonoscopy 11/24 for abdominal pain and abnormal CT, IMPRESSIONS:1.There was moderate diverticulosis noted in the sigmoid colon 2. Retroflexed views revealed internal hemorrhoids 3. Retroflexed views revealed medium internal hemorrhoids4. Revealed external hemorrhoids. Patient is also s/p exploratory lap on 11/24--cecal volvulus, extreme dilation of right colon, gallstones, with right colectomy and cholecystectomy. WBC increased, 40.9. AST 103, ALT 89, Alk Phos, 199, T. Bili 0.9 PLAN - Repeat colonoscopy as outpatient - Monitor labs - Surgery following - ID following - Continue Zosyn - Supportive care Patient seen and examined by Dr. Kothari and myself and this note is written on his behalf. (Bessy Hernandez) Physician Comments Seen and examined with ABBI, s/p surgery last night for colon volvulous. POD # 1 today. Further management per surgery, will sign off. Reconsult as needed. Thank you (Danelle Kothari MD) Bessy Hernandez Nov 25, 2016 12:28 Danelle Kothari MD Nov 25, 2016 12:37
--- NOTE | 2016-11-25 12:43 | HHI.PR ---
Subjective Subjective Notes Patient is intubated, sedated. She is now on a Cardizem drip for Afib/RVR. She is non-responsive to verbal stimuli. Objective Vitals/I&O Vital Signs Date Time Temp Pulse Resp B/P (MAP) Pulse Ox O2 Delivery O2 Flow Rate FiO2 11/25/16 12:24 95 40 11/25/16 08:00 106 11/25/16 08:00 98.0 28 115/54 (74) 11/24/16 18:15 Mechanical Ventilator 11/24/16 14:00 15.00 Labs Laboratory Tests Test 11/24/16 18:00 11/24/16 18:39 11/24/16 19:49 11/25/16 04:00 White Blood Count 28.8 40.9 Red Blood Count 3.63 3.47 Hemoglobin 9.9 9.3 Hematocrit 30.1 28.5 Mean Corpuscular Volume 82.9 82.1 Mean Corpuscular Hemoglobin 27.2 26.9 Mean Corpuscular Hemoglobin Concent 32.8 32.7 Red Cell Distribution Width 16.7 16.4 Platelet Count 149 120 Mean Platelet Volume 10.5 10.9 CBC Comment AUTO DIFF AUTO DIFF Differential Total Cells Counted 100 100 Neutrophils % (Manual) 93 73 Band Neutrophils % 5 17 Lymphocytes % 1 1 Monocytes % 1 9 Neutrophils # (Manual) 28.2 36.8 Differential Comment FINAL DIFF MANUAL FINAL DIFF MANUAL Platelet Estimate LOW LOW Platelet Morphology Comment NORMAL NORMAL [place] Cells 2+ 2+ Acanthocytes 2+ 2+ Keratocytes OCC OCC Blood Urea Nitrogen 31 33 Creatinine 1.86 1.89 Random Glucose 135 133 Calcium Level 8.5 8.5 Sodium Level 140 143 Potassium Level 4.2 3.3 Chloride Level 108 110 Carbon Dioxide Level 21.1 20.6 Anion Gap 11 12 Estimat Glomerular Filtration Rate 26 25 Prothrombin Time 12.3 Prothromb Time International Ratio 1.1 Blood Gas Puncture Site ART LINE Blood Gas Patient Temperature 98.6 Blood Gas HCO3 17 Blood Gas Base Excess -7.8 Blood Gas Oxygen Saturation 91 Arterial Blood pH 7.30 Arterial Blood Partial Pressure CO2 36 Arterial Blood Partial Pressure O2 70 Arterial Blood Oxygen Content 11.7 Arterial Blood Carboxyhemoglobin 1.7 Arterial Blood Methemoglobin 1.2 Blood Gas Hemoglobin 9.1 Oxygen Delivery Device VENTILATOR Blood Gas Ventilator Setting AC 14/500/5PEEP Blood Gas Inspired Oxygen 50 Neutrophils (%) (Auto) 96.8 Lymphocytes (%) (Auto) 1.5 Monocytes (%) (Auto) 1.0 Eosinophils (%) (Auto) 0.0 Basophils (%) (Auto) 0.7 Neutrophils # (Auto) 39.5 Lymphocytes # (Auto) 0.6 Monocytes # (Auto) 0.4 Eosinophils # (Auto) 0.0 Basophils # (Auto) 0.3 Toxic Vacuolation PRESENT Dohle Bodies PRESENT Total Protein 6.1 Albumin 2.0 Alkaline Phosphatase 199 Aspartate Amino Transf (AST/SGOT) 105 Alanine Aminotransferase (ALT/SGPT) 89 Total Bilirubin 0.9 Test 11/25/16 10:02 Blood Gas Puncture Site ART LINE Blood Gas Patient Temperature 98.6 Blood Gas HCO3 17 Blood Gas Base Excess -7.1 Blood Gas Oxygen Saturation 93 Arterial Blood pH 7.38 Arterial Blood Partial Pressure CO2 29 Arterial Blood Partial Pressure O2 80 Arterial Blood Oxygen Content 11.9 Arterial Blood Carboxyhemoglobin 1.7 Arterial Blood Methemoglobin 1.3 Blood Gas Hemoglobin 9.0 Oxygen Delivery Device VENTILATOR Blood Gas Ventilator Setting AC14/500/+5PEEP Blood Gas Inspired Oxygen 40 Date/Time Source Procedure Growth Status 11/24/16 02:42 Blood Peripheral Aerobic Blood Culture - Preliminary NO GROWTH IN 1 DAY Resulted 11/24/16 02:42 Blood Peripheral Anaerobic Blood Culture - Preliminary NO GROWTH IN 1 DAY Resulted Radiology Last Impressions Chest X-Ray 11/24/16 0000 Signed Impressions: Service Date/Time: Thursday, November 24, 2016 11:57 - CONCLUSION: 1. Interval placement of nasogastric catheter with tip beyond the GE junction omitted from the image. 2. Persistent diffuse coarse interstitial prominence likely reflecting interstitial edema/pneumonia superimposed on chronic interstitial changes. 3. Stable mild bibasilar airspace disease, likely atelectasis. Sam Buckner MD Abdomen/Pelvis CT 11/23/16 0000 Signed Impressions: Service Date/Time: Wednesday, November 23, 2016 21:46 - CONCLUSION: 1. 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 2. Mild head pancreatitis possible in the proper clinical setting. Patient has recently had ERCP and bile duct stone extraction. 3. Bibasilar pneumonia developing. Tiny pleural effusion on the right. 4. Chronic findings otherwise. Giovani Martinez MD Abdomen Ultrasound 11/23/16 0000 Signed Impressions: Service Date/Time: Wednesday, November 23, 2016 19:33 - CONCLUSION: 1. Somewhat limited study. Proximal superior mesenteric artery appears patent. 2. Mildly elevated flow velocities in the celiac and hepatic arteries of doubtful clinical significance. Giovani Martinez MD GI Procedure 11/21/16 0000 Signed Impressions: Service Date/Time: Monday, November 21, 2016 10:44 - CONCLUSION: ERCP as above. Reymundo Wilburn MD FACR Chest CT 11/20/16 1407 Signed Impressions: Service Date/Time: Sunday, November 20, 2016 15:13 - CONCLUSION: 1. Severe underlying emphysema. 2. Status post median sternotomy with postsurgical changes. Maikol Paredes MD Cardiovascular: Irregular Lungs: Clear Narrative Exam The abdomen is distended and quiet. She responds to palpation throughout with grimacing. A/P Assessment and Plan Impression: POD #1 s/p exp lap with R colectomy and cholecystectomy. From a surgical standpoint she remains critically ill. Plan: Per [facility] overall; we will monitor her from the surgical standpoint. No further direct intervention indicated at present. Shivam Ball MD Nov 25, 2016 12:43
[2016-11-25] MEDS: ENOXAPARIN SODIUM 30 MG/0.3 ML SYRINGE SQ SCH ×2 (16:14→16:15)
--- NOTE | 2016-11-25 16:28 | HHI.IDPN ---
Subjective Subjective Remarks s/p exp lap with R colectomy and cholecystectomy. Remains on vnt afebrile Antibiotics zosyn Allergies: Coded Allergies: No Known Allergies (Unverified , 11/24/16) Objective . Vital Signs Date Time Temp Pulse Resp B/P (MAP) Pulse Ox O2 Delivery O2 Flow Rate FiO2 11/25/16 15:37 94 40 11/25/16 12:24 95 40 11/25/16 12:00 40 11/25/16 12:00 97.8 107 18 125/58 (80) 93 11/25/16 09:34 94 40 11/25/16 08:00 106 11/25/16 08:00 98.0 106 28 115/54 (74) 94 11/25/16 08:00 40 11/25/16 04:40 93 40 11/25/16 04:00 40 11/25/16 04:00 98.2 133 14 115/57 (76) 94 11/25/16 03:51 122 120/60 11/25/16 01:35 94 40 11/25/16 00:00 98.3 110 14 116/56 (76) 95 11/25/16 00:00 40 11/24/16 22:47 93 40 11/24/16 20:49 96 40 11/24/16 20:00 40 11/24/16 20:00 107 11/24/16 20:00 98.2 107 14 99/52 (68) 97 11/24/16 18:15 110 20 102/52 (69) 95 Mechanical Ventilator 60 11/24/16 18:05 110 20 99/51 (67) 90 Mechanical Ventilator 60 11/24/16 18:00 94 60 11/24/16 17:55 110 20 107/58 (74) 91 Mechanical Ventilator 60 11/24/16 17:45 98.7 107 20 100/49 (66) 95 Mechanical Ventilator 60 11/25/16 11/25/16 11/26/16 15:00 23:00 07:00 Intake Total 50 ml Balance 50 ml IV Total 50 ml . Laboratory Tests Test 11/24/16 02:38 11/24/16 18:00 11/25/16 04:00 White Blood Count 34.6 TH/MM3 28.8 TH/MM3 40.9 TH/MM3 Red Blood Count 3.86 MIL/MM3 3.63 MIL/MM3 3.47 MIL/MM3 Hemoglobin 10.2 GM/DL 9.9 GM/DL 9.3 GM/DL Hematocrit 31.7 % 30.1 % 28.5 % Mean Corpuscular Volume 82.3 FL 82.9 FL 82.1 FL Mean Corpuscular Hemoglobin 26.4 PG 27.2 PG 26.9 PG Mean Corpuscular Hemoglobin Concent 32.1 % 32.8 % 32.7 % Red Cell Distribution Width 16.2 % 16.7 % 16.4 % Platelet Count 126 TH/MM3 149 TH/MM3 120 TH/MM3 Mean Platelet Volume 10.4 FL 10.5 FL 10.9 FL Neutrophils (%) (Auto) 84.8 % 96.8 % Lymphocytes (%) (Auto) 3.5 % 1.5 % Monocytes (%) (Auto) 9.2 % 1.0 % Eosinophils (%) (Auto) 2.3 % 0.0 % Basophils (%) (Auto) 0.2 % 0.7 % Neutrophils # (Auto) 29.3 TH/MM3 39.5 TH/MM3 Lymphocytes # (Auto) 1.2 TH/MM3 0.6 TH/MM3 Monocytes # (Auto) 3.2 TH/MM3 0.4 TH/MM3 Eosinophils # (Auto) 0.8 TH/MM3 0.0 TH/MM3 Basophils # (Auto) 0.1 TH/MM3 0.3 TH/MM3 CBC Comment AUTO DIFF AUTO DIFF AUTO DIFF Differential Total Cells Counted 100 100 100 Neutrophils % (Manual) 75 % 93 % 73 % Band Neutrophils % 11 % 5 % 17 % Lymphocytes % 2 % 1 % 1 % Monocytes % 12 % 1 % 9 % Neutrophils # (Manual) 29.8 TH/MM3 28.2 TH/MM3 36.8 TH/MM3 Differential Comment FINAL DIFF MANUAL FINAL DIFF MANUAL FINAL DIFF MANUAL Dohle Bodies PRESENT PRESENT Platelet Estimate LOW LOW LOW Platelet Morphology Comment ENLARGED NORMAL NORMAL Ovalocytes 1+ Kelechi Cells 1+ 2+ 2+ Acanthocytes 2+ 2+ Keratocytes OCC OCC Toxic Vacuolation PRESENT Laboratory Tests Test 11/24/16 02:38 11/24/16 18:00 11/25/16 04:00 Blood Urea Nitrogen 24 MG/DL 31 MG/DL 33 MG/DL Creatinine 1.51 MG/DL 1.86 MG/DL 1.89 MG/DL Random Glucose 128 MG/DL 135 MG/DL 133 MG/DL Total Protein 7.0 GM/DL 6.1 GM/DL Albumin 2.3 GM/DL 2.0 GM/DL Calcium Level 8.2 MG/DL 8.5 MG/DL 8.5 MG/DL Alkaline Phosphatase 248 U/L 199 U/L Aspartate Amino Transf (AST/SGOT) 50 U/L 105 U/L Alanine Aminotransferase (ALT/SGPT) 113 U/L 89 U/L Total Bilirubin 0.9 MG/DL 0.9 MG/DL Direct Bilirubin 0.6 MG/DL Sodium Level 140 MEQ/L 140 MEQ/L 143 MEQ/L Potassium Level 3.5 MEQ/L 4.2 MEQ/L 3.3 MEQ/L Chloride Level 107 MEQ/L 108 MEQ/L 110 MEQ/L Carbon Dioxide Level 24.8 MEQ/L 21.1 MEQ/L 20.6 MEQ/L Anion Gap 8 MEQ/L 11 MEQ/L 12 MEQ/L Estimat Glomerular Filtration Rate 33 ML/MIN 26 ML/MIN 25 ML/MIN Lactic Acid Level 0.9 mmol/L Indirect Bilirubin 0.3 MG/DL B-Type Natriuretic Peptide 206 PG/ML Lipase 69 U/L Microbiology Date/Time Source Procedure Growth Status 11/24/16 02:42 Blood Peripheral Aerobic Blood Culture - Preliminary NO GROWTH IN 1 DAY Resulted 11/24/16 02:42 Blood Peripheral Anaerobic Blood Culture - Preliminary NO GROWTH IN 1 DAY Resulted 11/24/16 02:38 Blood Peripheral Aerobic Blood Culture - Preliminary NO GROWTH IN 1 DAY Resulted 11/24/16 02:38 Blood Peripheral Anaerobic Blood Culture - Preliminary NO GROWTH IN 1 DAY Resulted Imaging Last Impressions Chest X-Ray 11/25/16 0000 Signed Impressions: Service Date/Time: Friday, November 25, 2016 07:30 - CONCLUSION: 1. Diffuse increased interstitial markings likely related to diffuse processes such as edema. This appears unchanged from the prior exam. 2. Possible small left effusion. 3. ET tube, NG tube and right internal jugular central line are well placed. Giovani Ruiz MD Abdomen/Pelvis CT 11/23/16 0000 Signed Impressions: Service Date/Time: Wednesday, November 23, 2016 21:46 - CONCLUSION: 1. 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 2. Mild head pancreatitis possible in the proper clinical setting. Patient has recently had ERCP and bile duct stone extraction. 3. Bibasilar pneumonia developing. Tiny pleural effusion on the right. 4. Chronic findings otherwise. Giovani Martinez MD Abdomen Ultrasound 11/23/16 0000 Signed Impressions: Service Date/Time: Wednesday, November 23, 2016 19:33 - CONCLUSION: 1. Somewhat limited study. Proximal superior mesenteric artery appears patent. 2. Mildly elevated flow velocities in the celiac and hepatic arteries of doubtful clinical significance. Giovani Martinez MD GI Procedure 11/21/16 0000 Signed Impressions: Service Date/Time: Monday, November 21, 2016 10:44 - CONCLUSION: ERCP as above. Reymundo Wilburn MD FACR Chest CT 11/20/16 1407 Signed Impressions: Service Date/Time: Sunday, November 20, 2016 15:13 - CONCLUSION: 1. Severe underlying emphysema. 2. Status post median sternotomy with postsurgical changes. Maikol Paredes MD Physical Exam CONSTITUTIONAL/GENERAL: This is an adequately nourished patient, in no apparent distress. On 100 NRB TUBES/LINES/DRAINS: SKIN: No jaundice, rashes, or lesions. Skin temperature appropriate. Not diaphoretic. EYES: Pupils equal and round and reactive. Fundi not examined. ENT: Hearing grossly normal. Nose without bleeding or purulent drainage. Throat without visible erythema, exudates, masses, or lesions. NECK: Trachea midline. Supple, nontender. CARDIOVASCULAR: Regular rate and rhythm + 2/6 systolic murmur, no gallops, or rubs. No JVD. Peripheral pulses symmetric. Well perfused perifery RESPIRATORY/CHEST: Symmetric, unlabored respirations. Clear to auscultation. Breath sounds equal bilaterally. No wheezes, rales, or rhonchi. GASTROINTESTINAL: Abdomen with surg dressing in place Bowel hypoactive GENITOURINARY: Without palpable bladder distension. Sanchez catheter in place with dark yellow urine MUSCULOSKELETAL: Extremities without clubbing, cyanosis, or edema. No joint tenderness or effusion noted. No calf tenderness. No mottling or clubbing. NEUROLOGICAL: sedated. PSYCHIATRIC: unable to assess Assessment & Plan Remarks imer orta colon resection and cholecystectomy Sepsis from intraac=bdominal source (leukocytoss, leukemoid reaction, hypoxia, JOSUE) leukocytoss, leukemoid reaction: even worse todauy ? post op Pt and her and othe rfamily members deny that pt ever had problems with PCN. Pt states she was given PCN many years ago and it was uneventful Gallstones sp ERCP 2 yrs ago REc': will fu op findings cont zosyn fu WBC fu clx Sharon Samayoa MD Nov 25, 2016 16:28
[2016-11-25] MEDS: fentaNYL DRIP 250 ML IV PRN (16:40)
[2016-11-25] MEDS: AMITRIPTYLINE HCL 10 MG TAB PO SCH (21:18)
[2016-11-26] VITALS (15 sets, daily range): BP systolic 99–101; BP diastolic 51–55; PULSE 67–103; RESP 14–16; TEMP 98.8–99.3; O2SAT 92–97
[2016-11-26] MEDS: RESP: ALBUTEROL 2.5 MG/IPRATROPIUM 0.5 MG NEB (SCH) NEB ×6 (00:24→21:08)
[2016-11-26] MEDS: PIPERACIL-TAZO 2.25 GM PREMIX 50 ML IV SCH ×4 (04:03→21:11)
[2016-11-26] MEDS: INSULIN NovoLIN REGULAR SUPPLEMENTAL SCALE SQ SCH ×5 (04:12→20:15)
[2016-11-26 04:38] LABS: HEMATOCRIT 25.4 % (35.0-46.0); MEAN CELL VOLUME 81.5 FL (80.0-100.0); MEAN CORPUSCULAR HEMOGLOBIN 26.7 PG (27.0-34.0); MEAN CORPUSCULAR HGB CONC 32.8 % (32.0-36.0); PLATELET COUNT 119 TH/MM3 (150-450); RED BLOOD COUNT 3.12 MIL/MM3 (4.00-5.30); RED CELL DISTRIBUTION WIDTH 16.2 % (11.6-17.2); WHITE BLOOD COUNT 44.4 TH/MM3 (4.0-11.0)
[2016-11-26 04:41] LABS: HEMO FLAGS AUTO DIFF
[2016-11-26 05:03] LABS: ANION GAP 10 MEQ/L (5-15); AST (GOT) 80 U/L (15-37); BICARBONATE 21.7 MEQ/L (21.0-32.0); BLOOD UREA NITROGEN 41 MG/DL (7-18); CHLORIDE 114 MEQ/L (98-107); GLOMERULAR FILTRATION RATE 23 ML/MIN (>89); SODIUM (NA) 146 MEQ/L (136-145)
[2016-11-26 05:06] LABS: ALKALINE PHOSPHATASE 173 U/L (45-117); ALT (GPT) 69 U/L (10-53); TOTAL BILIRUBIN ADULT 0.6 MG/DL (0.2-1.0)
[2016-11-26 05:27] LABS: BANDS 3 % (0-6); NEUTROPHIL # MANUAL DIFF 41.7 TH/MM3 (1.8-7.7); POLYS (SEG NEUTROPHILS) 91 % (16-70); WBC DIFF SAMPLE 100
[2016-11-26 05:31] LABS: ACANTHOCYTES 2+ (NORMAL); DOHLE BODIES PRESENT (NONE SEEN); OVALOCYTES 1+ (NORMAL); PLATELET ESTIMATE SMEAR LOW (NORMAL); PLATELET MORPHOLOGY NORMAL (NORMAL); SCAN/DIFF FINAL DIFF MANUAL
[2016-11-26] MEDS: URSODIOL 300 MG CAP PO SCH ×2 (09:00→21:12)
--- NOTE | 2016-11-26 09:15 | HHI.CCPN ---
Subjective Remarks/Hospital Course 86 y/o woman developed worsening SOB this afternoon associated with marked leukocytosis. Recent biliary instrumentation for obstruction 48 hours ago and probable sepsis. On appropriate antibiotics. Requiring NRBM now for oxygenation to 97%. Visibly labored breathing. CXR with interstitial edema. EF 35% 2014. Move to ICU. 11/24: Patient s/p colonoscopy this morning which showed mod. diverticulosis in sigmoid colon and hemorrhoids. Remains on NRB with good sats. Afebrile. Cr increased 1.51 from 1.08. 11/25 Patient s/p Ex lap, right colectomy and cholecystectomy. She kept intubated postop went into Afib with RVR overnight and placed on Cardizem drip 10mg/hr. 11/26 Patient is sedated with Diprivan, fentanyl and intubated. Afebrile. On Cardizem drip 5mg/hr. renal function worse with Cr: 2.01 from 1.89, UOP: 1L in 24 hrs Objective Vital Signs Date Time Temp Pulse Resp B/P (MAP) Pulse Ox O2 Delivery O2 Flow Rate FiO2 11/26/16 08:06 96 40 11/26/16 06:00 91 11/26/16 04:00 99.1 14 101/55 (70) 11/24/16 18:15 Mechanical Ventilator 11/24/16 14:00 15.00 Intake and Output 11/26/16 11/26/16 11/27/16 08:00 16:00 00:00 Intake Total 1353 ml Output Total 850 ml Balance 503 ml Result Diagram: 11/26/16 0405 11/26/16 0405 Other Results Laboratory Tests Test 11/25/16 10:02 11/26/16 04:05 Blood Gas Puncture Site ART LINE Blood Gas Patient Temperature 98.6 Blood Gas HCO3 17 mmol/L Blood Gas Base Excess -7.1 mmol/L Blood Gas Oxygen Saturation 93 % Arterial Blood pH 7.38 Arterial Blood Partial Pressure CO2 29 mmHg Arterial Blood Partial Pressure O2 80 mmHg Arterial Blood Oxygen Content 11.9 Vol % Arterial Blood Carboxyhemoglobin 1.7 % Arterial Blood Methemoglobin 1.3 % Blood Gas Hemoglobin 9.0 G/DL Oxygen Delivery Device VENTILATOR Blood Gas Ventilator Setting AC14/500/+5PEEP Blood Gas Inspired Oxygen 40 % White Blood Count 44.4 TH/MM3 Red Blood Count 3.12 MIL/MM3 Hemoglobin 8.3 GM/DL Hematocrit 25.4 % Mean Corpuscular Volume 81.5 FL Mean Corpuscular Hemoglobin 26.7 PG Mean Corpuscular Hemoglobin Concent 32.8 % Red Cell Distribution Width 16.2 % Platelet Count 119 TH/MM3 Mean Platelet Volume 10.4 FL CBC Comment AUTO DIFF Differential Total Cells Counted 100 Neutrophils % (Manual) 91 % Band Neutrophils % 3 % Lymphocytes % 2 % Monocytes % 4 % Neutrophils # (Manual) 41.7 TH/MM3 Differential Comment FINAL DIFF MANUAL Dohle Bodies PRESENT Platelet Estimate LOW Platelet Morphology Comment NORMAL Ovalocytes 1+ Acanthocytes 2+ Blood Urea Nitrogen 41 MG/DL Creatinine 2.01 MG/DL Random Glucose 170 MG/DL Total Protein 6.3 GM/DL Albumin 1.8 GM/DL Calcium Level 8.4 MG/DL Phosphorus Level 2.7 MG/DL Magnesium Level 2.0 MG/DL Alkaline Phosphatase 173 U/L Aspartate Amino Transf (AST/SGOT) 80 U/L Alanine Aminotransferase (ALT/SGPT) 69 U/L Total Bilirubin 0.6 MG/DL Sodium Level 146 MEQ/L Potassium Level 3.0 MEQ/L Chloride Level 114 MEQ/L Carbon Dioxide Level 21.7 MEQ/L Anion Gap 10 MEQ/L Estimat Glomerular Filtration Rate 23 ML/MIN Imaging Last Impressions Chest X-Ray 11/25/16 0000 Signed Impressions: Service Date/Time: Friday, November 25, 2016 07:30 - CONCLUSION: 1. Diffuse increased interstitial markings likely related to diffuse processes such as edema. This appears unchanged from the prior exam. 2. Possible small left effusion. 3. ET tube, NG tube and right internal jugular central line are well placed. Giovani Ruiz MD Abdomen/Pelvis CT 11/23/16 0000 Signed Impressions: Service Date/Time: Wednesday, November 23, 2016 21:46 - CONCLUSION: 1. 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 2. Mild head pancreatitis possible in the proper clinical setting. Patient has recently had ERCP and bile duct stone extraction. 3. Bibasilar pneumonia developing. Tiny pleural effusion on the right. 4. Chronic findings otherwise. Giovani Martinez MD Abdomen Ultrasound 11/23/16 0000 Signed Impressions: Service Date/Time: Wednesday, November 23, 2016 19:33 - CONCLUSION: 1. Somewhat limited study. Proximal superior mesenteric artery appears patent. 2. Mildly elevated flow velocities in the celiac and hepatic arteries of doubtful clinical significance. Giovani Martinez MD GI Procedure 11/21/16 0000 Signed Impressions: Service Date/Time: Monday, November 21, 2016 10:44 - CONCLUSION: ERCP as above. Reymundo Wilburn MD FACR Chest CT 11/20/16 1407 Signed Impressions: Service Date/Time: Sunday, November 20, 2016 15:13 - CONCLUSION: 1. Severe underlying emphysema. 2. Status post median sternotomy with postsurgical changes. Maikol Paredes MD Objective Remarks GENERAL: Patient is 86 yo intubated SKIN: Warm and dry. HEAD: Normocephalic. EYES: No scleral icterus. No injection or drainage. NECK: Supple, trachea midline. No JVD or lymphadenopathy. CARDIOVASCULAR: Tachycardic without murmurs, gallops, or rubs. RESPIRATORY: Breath sounds equal bilaterally. No accessory muscle use. GASTROINTESTINAL: Abdomen soft, tenderness on palpation.. MUSCULOSKELETAL: No cyanosis, or edema. Neuro: Intubated however she is awake and alert. A/P Assessment and Plan 1. VDRF 2. 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 S/P biliary manipulation ERCP for obstructed duct with stones and sludge . 4. Systolic heart failure. 5 Leukocytosis 6 Anemia, thrombocytopenia 7 Elevated LFT;s 8 JOSUE 9 Afib Plan: Neuro: on Diprivan/fentanyl infusion for sedation. Daily sedation vacation. Dilaudid PRN for pain Pulm: Continue with vent support and maintain sat >92% Bronchodilators, ICU vent bundle, SBT daily as adelina. CT chest 11/20: Severe underlying emphysema. Status post median sternotomy with postsurgical changes. CV: Wean off Cardizem drip -Monitor HR and BP keep MAP>65mmHg Lactic acid 11/23: 0.9 Echo from 09/2014 showed EF 35%. For 2D echo On ASA, Procardia XL 60mg daily. 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 Mild head pancreatitis possible in the proper clinical setting. Patient has recently had ERCP and bile duct stone extraction. Bibasilar pneumonia developing. Tiny pleural effusion on the right US abdomen: Proximal superior mesenteric artery appears patent. ID: Continue with abx per ID ( Zosyn) Monitor for signs of infections ( Fever, WBC) Follow up on BC 11/24: NGTD . Heme: Monitor CBC Endo: SSI with accuchecks GI prophylaxis- Protonix 40mg daily DVT prophylaxis- Lovenox 30mg daily Lines: Right IJ placed in OR 11/24 CCT 30 mins Marian Rodríguez MD Nov 26, 2016 09:15
[2016-11-26] MEDS ORDERED: POTASSIUM CHLOR 40 MEQ PREMIX 100 ML IV ONE (09:45)
[2016-11-26] MEDS: PANTOPRAZOLE SODIUM 40 MG VIAL IV PUSH SCH (10:45)
[2016-11-26] MEDS: SODIUM CHLORIDE 0.9% FLUSH 10 ML FLUSH IV FLUSH SCH ×2 (10:46→21:12)
[2016-11-26] MEDS: ASPIRIN 81 MG CHEW TAB CHEW SCH (10:46)
[2016-11-26] MEDS: NIFEdipine 60 MG SUSTAINED RELEASE TAB PO SCH (10:47)
[2016-11-26] MEDS: CILOSTAZOL 100 MG TAB PO SCH ×2 (10:47→21:12)
[2016-11-26] MEDS: SODIUM CHLOR 0.45% 1000 ML INJ 1,000 ML IV SCH (10:50)
--- NOTE | 2016-11-26 11:21 | PD.CONS ---
HPI Consult Requested By Primary Care Physician Thee Lambert MD History of Present Illness 86-year-old female with a history of multiple medical problems including hypertension, coronary disease, atrial fibrillation admitted to this institution with intestinal volvulus status post exploratory laparotomy with a right colectomy. Patient also underwent repeat ERCP for obstructed bile duct November 21, 2016. Patient noted to have had a serum creatinine level 0.8 15 September 2016. On presentation creatinine level at this institution 1.59 and has now deteriorated to 2.01. Patient in the ICU with development of respiratory insufficiency and worsening leukocytosis. Patient unable to provide any history secondary to her clinical condition. Review of Systems ROS Limitations: Clinical Condition Past Family Social History Allergies: Coded Allergies: No Known Allergies (Unverified , 11/24/16) Past Medical History Atrophic fibrillation Coronary disease Hypertension Gastroesophageal reflux disease Prosthetic right eye. Bile duct obstruction with stent placement 2014. Cardiomyopathy ejection fraction said to be 35%. Past Surgical History CABG, Bladder suspension Reported Medications Active Ordered Medications Current Medications Morphine Sulfate (Morphine Inj) 2 mg ONCE ONCE IV PUSH ; Start 11/20/16 at 13: 30; Stop 11/20/16 at 13:30; Status DC Ondansetron HCl (Zofran Inj) 4 mg ONCE ONCE IV PUSH Last administered on 13:30; Start 11/20/16 at 13:30; Stop 11/20/16 at 13:31; Status DC Morphine Sulfate (Morphine Inj) 2 mg ONCE ONCE IV PUSH Last administered on 13:30; Start 11/20/16 at 13:30; Stop 11/20/16 at 13:31; Status DC Sodium Chloride 1,000 ml @ 125 mls/hr Q8H IV Last administered on 11/21/16 21 :17; Start 11/20/16 at 14:00; Stop 11/22/16 at 01:33; Status DC Morphine Sulfate (Morphine Inj) 4 mg ONCE ONCE IV PUSH Last administered on 15:20; Start 11/20/16 at 15:15; Stop 11/20/16 at 15:16; Status DC Levofloxacin/ Dextrose 100 ml @ 100 mls/hr ONCE ONCE IV Last administered on 11/20/16 16:29; Start 11/20/16 at 16:00; Stop 11/20/16 at 16:59; Status DC Metronidazole 100 ml @ 100 mls/hr ONCE ONCE IV Last administered on 16:28; Start 11/20/16 at 16:00; Stop 11/20/16 at 16:59; Status DC Potassium Chloride 100 ml @ 50 mls/hr BOLUS ONCE IV Last administered on 11/20 16:28; Start 11/20/16 at 16:00; Stop 11/20/16 at 17:59; Status DC Sodium Chloride (NS Flush) 2 ml UNSCH PRN IV FLUSH FLUSH AFTER USING IV ACCESS ; Start 11/20/16 at 16:15 Sodium Chloride (NS Flush) 2 ml BID IV FLUSH Last administered on 11/26/16 10: 46; Start 11/20/16 at 21:00 Acetaminophen (Tylenol) 650 mg Q4H PRN PO TEMP > 100.4; Start 11/20/16 at 16:15 Ondansetron HCl (Zofran Inj) 4 mg Q6H PRN IVP NAUSEA OR VOMITING; Start at 16:15 Temazepam (Restoril) 15 mg HS PRN PO INSOMNIA Last administered on 11/23/16 23 :20; Start 11/20/16 at 16:15 Enoxaparin Sodium (Lovenox Inj) 30 mg Q24H SQ Last administered on 11/25/16 16 :14; Start 11/20/16 at 16:15; Status Future hold Naloxone HCl (Narcan Inj) 0.4 mg UNSCH PRN IV SEE LABEL COMMENTS; Start at 16:15 Magnesium Hydroxide (Milk Of Magnesia Liq) 30 ml Q12H PRN PO MILD - MODERATE CONSTIPATION; Start 11/20/16 at 16:15 Potassium Chloride/Sodium Chloride 1,000 ml @ 85 mls/hr [id number] IV Last administered on 11/22/16 01:44; Start 11/20/16 at 16:15; Stop 11/22/16 at 15:41 ; Status DC Metronidazole 100 ml @ 100 mls/hr Q8H IV Last administered on 11/24/16 08:06 ; Start 11/21/16 at 00:00; Stop 11/24/16 at 14:35; Status DC Levofloxacin/ Dextrose 100 ml @ 100 mls/hr Q24H IV Last administered on 08:07; Start 11/21/16 at 08:00; Stop 11/24/16 at 14:35; Status DC Amitriptyline HCl (Elavil) 10 mg HS PO Last administered on 11/25/16 21:18; Start 11/20/16 at 21:00 Aspirin (Aspirin Chew) 81 mg DAILY CHEW Last administered on 11/26/16 10:46; Start 11/21/16 at 09:00 Atorvastatin Calcium (Lipitor) 80 mg HS PO Last administered on 11/23/16 20:42 ; Start 11/20/16 at 21:00; Status Future Hold Cilostazol (Pletal) 100 mg BID PO Last administered on 11/26/16 10:47; Start 11/20/16 at 21:00 Nifedipine (Procardia Xl) 60 mg DAILY PO Last administered on 11/26/16 10:47; Start 11/21/16 at 09:00 Pantoprazole Sodium (Protonix) 20 mg BID PO Last administered on 11/24/16 08: 55; Start 11/20/16 at 21:00; Stop 11/24/16 at 12:04; Status DC Acetaminophen/ Hydrocodone Bitart ([place] 5-325 Mg) 1 tab Q6H PRN PO pain 1-5 Last administered on 11/21/16 12:00; Start 11/20/16 at 20:00; Stop 11/21/16 at 14:50; Status DC Diltiazem HCl 125 mg/Sodium Chloride 125 ml @ 5 mls/hr TITRATE PRN IV Tachycardia Last administered on 11/20/16 21:14; Start 11/20/16 at 20:00; Stop 11/24/16 at 12:04; Status DC Lactated Ringer's 1,000 ml @ 30 mls/hr Q24H PRN IV SEE LABEL COMMENTS; Start at 04:45; Stop 11/22/16 at 11:22; Status DC Sodium Chloride 500 ml @ 30 mls/hr [id number] PRN IV SEE LABEL COMMENTS; Start at 04:45; Stop 11/23/16 at 18:10; Status DC Metoprolol Tartrate (Lopressor) 25 mg RETURNED TELEPHONE EQUIPMENT APPRAISER PRN PO SEE LABEL COMMENTS; Start 11/21/16 at 04:45; Stop 11/24/16 at 04:46; Status DC Povidone Iodine (Betadine 5% Antisepsis Kit) 1 applic RETURNED TELE[employer] EQUIPMENT APPRAISER PRN EACH NARE SEE LABEL COMMENTS; Start 11/21/16 at 04:45; Stop 11/24/16 at 04:46; Status DC Chlorhexidine Gluconate (Chlorhexidine 2% Cloth) 3 pack RETURNED TELEPHONE EQUIPMENT APPRAISER PRN TOPICAL SEE LABEL COMMENTS; Start 11/21/16 at 04:45; Stop 11/24/16 at 04:46; Status DC Insulin Human Regular (NovoLIN R INJ) See Protocol Table ... RETURNED TELEPHONE EQUIPMENT APPRAISER PRN SQ SEE PROTOCOL TABLE; Start 11/21/16 at 04:45; Stop 11/24/16 at 04:46; Status DC Propofol (Diprivan 200 Mg/20 ml Inj) 150 mg STK-MED ONCE IV PUSH ; Start at 09:38; Stop 11/21/16 at 09:39; Status DC Phenylephrine HCl (Neosynephrine/ NS 1000 Mcg/10ml Syr) 2,000 mcg STK-MED ONCE .ROUTE ; Start 11/21/16 at 09:49; Stop 11/21/16 at 09:50; Status DC Albuterol Sulfate (*ALBUTEROL NEB PERIprocedure ONLY) 2.5 mg STK-MED ONCE NEB ; Start 11/21/16 at 10:29; Stop 11/21/16 at 10:30; Status DC Miscellaneous Information ALL NURSING DEPARTME... UNSCH PRN .XX SEE LABEL COMMENTS; Start 11/21/16 at 09:43; Stop 11/22/16 at 09:42; Status DC Hydromorphone HCl (Dilaudid Pf Inj) 0.5 mg Q4H PRN IV PUSH pain 6-10 Last administered on 11/25/16 04:11; Start 11/21/16 at 14:45 Acetaminophen/ Hydrocodone Bitart ([place] 5-325 Mg) 1 tab Q4H PRN PO pain 1-5 Last administered on 11/23/16 15:54; Start 11/21/16 at 15:00 Potassium Chloride 100 ml @ 50 mls/hr Q2H IV Last administered on 11/22/16 17 :17; Start 11/22/16 at 12:00; Stop 11/22/16 at 15:59; Status DC Potassium Chloride 1144 meq/ Lactated Ringer's 1,010 ml @ 30 mls/hr Q24H PRN IV SEE LABEL COMMENTS; Start 11/23/16 at 04:45; Stop 11/23/16 at 04:45; Status DC Potassium Chloride 1144 meq/ Sodium Chloride 1,010 ml @ 42 mls/hr Q24H IV ; Start 11/22/16 at 14:15; Stop 11/22/16 at 15:41; Status DC Potassium Chloride/Sodium Chloride 1,000 ml @ 42.5 mls/hr [id number] IV Last administered on 11/23/16 08:54; Start 11/22/16 at 15:45; Stop 11/23/16 at 12:51 ; Status DC Bisacodyl (Dulcolax Supp) 10 mg ONCE ONCE RECTAL ; Start 11/22/16 at 19:15; Stop 11/22/16 at 19:22; Status DC Ursodiol (Actigall) 300 mg Q12HR PO Last administered on 11/26/16 09:00; Start 11/22/16 at 21:00 Albuterol/ Ipratropium (Duoneb Neb) 1 ampule ONCE STAT NEB Last administered on 11/25/16 09:32; Start 11/23/16 at 12:31; Stop 11/23/16 at 12:37; Status DC Furosemide (Lasix Inj) 80 mg ONCE STAT IV PUSH ; Start 11/23/16 at 12:50; Stop 11/23/16 at 13:16; Status DC Furosemide (Lasix Inj) 80 mg STK-MED ONCE .ROUTE Last administered on 15:54; Start 11/23/16 at 12:51; Stop 11/23/16 at 12:52; Status DC Pharmacy Profile Note 0 ml @ 0 mls/hr UNSCH OTHER ; Start 11/23/16 at 16:00; Stop 11/24/16 at 14:35; Status DC Vancomycin HCl 1000 mg/Sodium Chloride 250 ml @ 250 mls/hr Q24H IV Last administered on 11/23/16 18:15; Start 11/23/16 at 18:00; Stop 11/24/16 at 14:35 ; Status DC Miscellaneous Information SPECIFIC LAB TO BE CONNIE... ONCE ONCE .XX ; Start 11/26 at 17:45; Stop 11/26/16 at 17:46; Status Cancel Bisacodyl (Dulcolax Supp) 10 mg ONCE ONCE RECTAL Last administered on 20:42; Start 11/23/16 at 18:45; Stop 11/23/16 at 18:46; Status DC Ketamine HCl (Ketalar Inj) 500 mg STK-MED ONCE .ROUTE ; Start 11/24/16 at 10:23 ; Stop 11/24/16 at 10:24; Status DC Meperidine HCl (*DEMEROL INJ PERIprocedural ONLY) 25 mg STK-MED ONCE .ROUTE Last administered on 11/24/16 10:54; Start 11/24/16 at 10:54; Stop 11/24/16 at 10:55; Status DC Lactated Ringer's 1,000 ml @ 0 mls/hr Q0M ONCE IV ; Start 11/24/16 at 10:20; Stop 11/24/16 at 11:25; Status DC Propofol (Diprivan 200 Mg/20 ml Inj) 100 mg STK-MED ONCE IV ; Start 11/24/16 at 10:29; Stop 11/24/16 at 11:30; Status DC Albuterol/ Ipratropium (Duoneb Neb) 1 ampule Q4HR NEB NEB Last administered on 11/26/16 08:00; Start 11/24/16 at 12:00 Albuterol/ Ipratropium (Duoneb Neb) 1 ampule Q2HR NEB PRN NEB SHORTNESS OF BREATH; Start 11/24/16 at 11:45 Miscellaneous Information ALL NURSING DEPARTME... UNSCH PRN .XX SEE LABEL COMMENTS; Start 11/24/16 at 12:15; Stop 11/25/16 at 12:14; Status DC Pantoprazole Sodium (Protonix Inj) 40 mg DAILY IV PUSH Last administered on 10:45; Start 11/24/16 at 12:00 Dextrose (D50w (Vial) Inj) 50 ml UNSCH PRN IV HYPOGLYCEMIA-SEE COMMENTS; Start 11/24/16 at 12:15 Glucagon (Glucagon Inj) 1 mg UNSCH PRN OTHER HYPOGLYCEMIA-SEE COMMENTS; Start 11/24/16 at 12:15 Insulin Human Regular (NovoLIN R SUPPLEMENTAL SCALE) 1 Q4H SQ Last administered on 11/26/16 04:12; Start 11/24/16 at 12:15 Bumetanide (Bumex Inj) 1 mg ONCE ONCE IV PUSH Last administered on 11/24/16 13:41; Start 11/24/16 at 13:00; Stop 11/24/16 at 13:06; Status DC Methylprednisolone Sodium Succinate (SoluMEDROL INJ) 40 mg Q6H IV PUSH Last administered on 11/25/16 06:14; Start 11/24/16 at 13:00; Stop 11/25/16 at 12:50 ; Status DC Hydromorphone HCl (Dilaudid Pf Inj) 0.5 mg ONCE ONCE IV PUSH ; Start 11/24/16 at 14:00; Stop 11/24/16 at 14:01; Status DC Piperacillin Sod/ Tazobactam Sod 50 ml @ 100 mls/hr Q6H IV Last administered on 11/25/16 03:22; Start 11/24/16 at 15:00; Stop 11/25/16 at 08:25; Status DC Propofol 100 ml @ As Directed STK-MED ONCE .ROUTE Last administered on 17:58; Start 11/24/16 at 17:58; Stop 11/24/16 at 17:59; Status DC Potassium Chloride/Sodium Chloride 1,000 ml @ As Directed STK-MED ONCE .ROUTE ; Start 11/24/16 at 18:08; Stop 11/24/16 at 18:09; Status DC Miscellaneous Information ALL NURSING DEPARTME... UNSCH PRN .XX SEE LABEL COMMENTS; Start 11/24/16 at 18:00; Stop 11/25/16 at 17:59; Status DC Propofol 100 ml @ 1.893 mls/ hr TITRATE PRN IV SEDATION; Start 11/24/16 at 21: 15; Stop 11/25/16 at 07:22; Status DC Diltiazem HCl 125 mg/Sodium Chloride 125 ml @ 5 mls/hr TITRATE PRN IV Tachycardia Last administered on 11/25/16 03:51; Start 11/25/16 at 03:15 Sodium Chloride 500 ml @ 500 mls/hr Q1H IV Last administered on 11/25/16 03: 16; Start 11/25/16 at 03:30; Stop 11/25/16 at 04:29; Status DC Dextrose/Sodium Chloride 1,000 ml @ 42 mls/hr [id number] IV Last administered on 11/25/16 09:11; Start 11/25/16 at 07:30; Stop 11/26/16 at 09:16; Status DC Propofol 100 ml @ 1.89 mls/hr TITRATE PRN IV SEDATION Last administered on 23:46; Start 11/25/16 at 07:30 Potassium Chloride 100 ml @ 50 mls/hr BOLUS ONCE IV Last administered on 11/25 09:23; Start 11/25/16 at 08:00; Stop 11/25/16 at 09:59; Status DC Piperacillin Sod/ Tazobactam Sod 50 ml @ 100 mls/hr Q6H IV Last administered on 11/26/16 10:53; Start 11/25/16 at 09:00 Fentanyl Citrate 250 ml @ 5 mls/hr TITRATE PRN IV SEDATION Last administered on 11/25/16 16:40; Start 11/25/16 at 16:15 Potassium Chloride 100 ml @ 25 mls/hr BOLUS ONCE IV Last administered on 11/26 10:50; Start 11/26/16 at 09:45; Stop 11/26/16 at 13:44 Sodium Chloride 1,000 ml @ 50 mls/hr Q20H IV Last administered on 11/26/16 10 :50; Start 11/26/16 at 09:15 Family History Unable to obtain secondary clinical condition. Social History Per records no history of current tobacco use. Continued. Approximately 1-2 alcohol drinks daily. No history of illicit drug use. Physical Exam Vital Signs Vital Signs Date Time Temp Pulse Resp B/P (MAP) Pulse Ox O2 Delivery O2 Flow Rate FiO2 11/26/16 08:06 96 40 11/26/16 06:00 91 11/26/16 04:00 40 11/26/16 04:00 99.1 93 14 101/55 (70) 93 11/26/16 04:00 93 11/26/16 03:47 97 40 11/26/16 02:00 98 11/26/16 01:10 94 40 11/26/16 00:00 97 11/26/16 00:00 40 11/26/16 00:00 99.1 97 16 100/51 (67) 94 11/25/16 22:06 95 40 11/25/16 22:00 132 11/25/16 20:18 94 40 11/25/16 20:00 99.7 123 24 117/56 (76) 94 11/25/16 20:00 123 11/25/16 20:00 40 11/25/16 16:00 98.3 110 18 117/55 (75) 95 11/25/16 16:00 40 11/25/16 15:37 94 40 11/25/16 12:24 95 40 11/25/16 12:00 40 11/25/16 12:00 97.8 107 18 125/58 (80) 93 Physical Exam GENERAL: Elderly and frail-appearing female with ET tube in place on the ventilator. Not responding to simple commands or questions. SKIN: Warm and dry. HEAD: Normocephalic. EYES: No scleral icterus. No injection or drainage. NECK: Supple, trachea midline. No JVD or lymphadenopathy. CARDIOVASCULAR: Regular rate and rhythm without murmurs, gallops, or rubs. RESPIRATORY: Breath sounds equal bilaterally. No accessory muscle use. GASTROINTESTINAL: Dressing overlying abdomen not disturbed. MUSCULOSKELETAL: No cyanosis, 1+ pitting edema extremities. BACK: Nontender without obvious deformity. Laboratory Laboratory Tests Test 11/26/16 04:05 White Blood Count 44.4 Red Blood Count 3.12 Hemoglobin 8.3 Hematocrit 25.4 Mean Corpuscular Volume 81.5 Mean Corpuscular Hemoglobin 26.7 Mean Corpuscular Hemoglobin Concent 32.8 Red Cell Distribution Width 16.2 Platelet Count 119 Mean Platelet Volume 10.4 CBC Comment AUTO DIFF Differential Total Cells Counted 100 Neutrophils % (Manual) 91 Band Neutrophils % 3 Lymphocytes % 2 Monocytes % 4 Neutrophils # (Manual) 41.7 Differential Comment FINAL DIFF MANUAL Dohle Bodies PRESENT Platelet Estimate LOW Platelet Morphology Comment NORMAL Ovalocytes 1+ Acanthocytes 2+ Blood Urea Nitrogen 41 Creatinine 2.01 Random Glucose 170 Total Protein 6.3 Albumin 1.8 Calcium Level 8.4 Phosphorus Level 2.7 Magnesium Level 2.0 Alkaline Phosphatase 173 Aspartate Amino Transf (AST/SGOT) 80 Alanine Aminotransferase (ALT/SGPT) 69 Total Bilirubin 0.6 Sodium Level 146 Potassium Level 3.0 Chloride Level 114 Carbon Dioxide Level 21.7 Anion Gap 10 Estimat Glomerular Filtration Rate 23 Date/Time Source Procedure Growth Status 11/24/16 02:42 Blood Peripheral Aerobic Blood Culture - Preliminary NO GROWTH IN 2 DAYS Resulted 11/24/16 02:42 Blood Peripheral Anaerobic Blood Culture - Preliminary NO GROWTH IN 2 DAYS Resulted Result Diagram: 11/26/16 0405 11/26/16 0405 Imaging Last 48 hours Impressions Chest X-Ray 11/25/16 0000 Signed Impressions: Service Date/Time: Friday, November 25, 2016 07:30 - CONCLUSION: 1. Diffuse increased interstitial markings likely related to diffuse processes such as edema. This appears unchanged from the prior exam. 2. Possible small left effusion. 3. ET tube, NG tube and right internal jugular central line are well placed. Giovani Ruiz MD Assessment and Plan Problem List: (1) JOSUE (acute kidney injury) ICD Codes: N17.9 - JOSUE (acute kidney injury) Status: Acute Plan: Patient does not appear to be clinically dehydrated despite hypernatremia. IV fluids were altered by critical care to hypoosmolar. Continue same. I believe that the patient has established acute kidney injury. Azotemia will likely worsen. If this occurs a decision may have to be made by the family regarding dialytic intervention. We'll check urine for eosinophils for less likely interstitial nephritis. Medications should be adjusted for the patient's estimated GFR if clinically indicated. Avoid agents with significant potential for nephrotoxicity possible including NSAIDs for analgesia, iodine contrast agents. Gadolinium is contraindicated if the GFR is below 30. Permanent Comment: Secondary to sepsis. Last Edited By: Radha Ferrari on Nov 26, 2016 11:19 (2) Sepsis ICD Codes: A41.9 - Sepsis, unspecified organism Plan: Management per infectious disease. Permanent Comment: Patient status post right colectomy for volvulus as well as ERCP obstructed bile duct November 21, 2016. Last Edited By: Radha Ferrari on Nov 26, 2016 11:20 (3) Hypernatremia ICD Codes: E87.0 - Hyperosmolality and hypernatremia Status: Acute Plan: Secondary to relative free water deficit. Patient has been changed to hypoosmolar IV fluids. We'll monitor. (4) Hypertension ICD Codes: I10 - Hypertension Status: Chronic Problem Qualifiers (1) Hypertension: Qualified Codes: I10 - Essential (primary) hypertension Kesha Ferrari MD Nov 26, 2016 11:21
--- NOTE | 2016-11-26 12:10 | HHI.PR ---
Subjective Subjective Notes Remains ventilated. On cardizem gtt. Renal function slightly worsened. Objective Vitals/I&O Vital Signs Date Time Temp Pulse Resp B/P (MAP) Pulse Ox O2 Delivery O2 Flow Rate FiO2 11/26/16 08:06 96 40 11/26/16 06:00 91 11/26/16 04:00 99.1 14 101/55 (70) 11/24/16 18:15 Mechanical Ventilator 11/24/16 14:00 15.00 Labs Laboratory Tests Test 11/26/16 04:05 White Blood Count 44.4 Red Blood Count 3.12 Hemoglobin 8.3 Hematocrit 25.4 Mean Corpuscular Volume 81.5 Mean Corpuscular Hemoglobin 26.7 Mean Corpuscular Hemoglobin Concent 32.8 Red Cell Distribution Width 16.2 Platelet Count 119 Mean Platelet Volume 10.4 CBC Comment AUTO DIFF Differential Total Cells Counted 100 Neutrophils % (Manual) 91 Band Neutrophils % 3 Lymphocytes % 2 Monocytes % 4 Neutrophils # (Manual) 41.7 Differential Comment FINAL DIFF MANUAL Dohle Bodies PRESENT Platelet Estimate LOW Platelet Morphology Comment NORMAL Ovalocytes 1+ Acanthocytes 2+ Blood Urea Nitrogen 41 Creatinine 2.01 Random Glucose 170 Total Protein 6.3 Albumin 1.8 Calcium Level 8.4 Phosphorus Level 2.7 Magnesium Level 2.0 Alkaline Phosphatase 173 Aspartate Amino Transf (AST/SGOT) 80 Alanine Aminotransferase (ALT/SGPT) 69 Total Bilirubin 0.6 Sodium Level 146 Potassium Level 3.0 Chloride Level 114 Carbon Dioxide Level 21.7 Anion Gap 10 Estimat Glomerular Filtration Rate 23 Date/Time Source Procedure Growth Status 11/24/16 02:42 Blood Peripheral Aerobic Blood Culture - Preliminary NO GROWTH IN 2 DAYS Resulted 11/24/16 02:42 Blood Peripheral Anaerobic Blood Culture - Preliminary NO GROWTH IN 2 DAYS Resulted Radiology Last Impressions Chest X-Ray 11/24/16 0000 Signed Impressions: Service Date/Time: Thursday, November 24, 2016 11:57 - CONCLUSION: 1. Interval placement of nasogastric catheter with tip beyond the GE junction omitted from the image. 2. Persistent diffuse coarse interstitial prominence likely reflecting interstitial edema/pneumonia superimposed on chronic interstitial changes. 3. Stable mild bibasilar airspace disease, likely atelectasis. Sam Buckner MD Abdomen/Pelvis CT 11/23/16 0000 Signed Impressions: Service Date/Time: Wednesday, November 23, 2016 21:46 - CONCLUSION: 1. 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 2. Mild head pancreatitis possible in the proper clinical setting. Patient has recently had ERCP and bile duct stone extraction. 3. Bibasilar pneumonia developing. Tiny pleural effusion on the right. 4. Chronic findings otherwise. Giovani Martinez MD Abdomen Ultrasound 11/23/16 0000 Signed Impressions: Service Date/Time: Wednesday, November 23, 2016 19:33 - CONCLUSION: 1. Somewhat limited study. Proximal superior mesenteric artery appears patent. 2. Mildly elevated flow velocities in the celiac and hepatic arteries of doubtful clinical significance. Giovani Martinez MD GI Procedure 11/21/16 0000 Signed Impressions: Service Date/Time: Monday, November 21, 2016 10:44 - CONCLUSION: ERCP as above. Reymundo Wilburn MD FACR Chest CT 11/20/16 1407 Signed Impressions: Service Date/Time: Sunday, November 20, 2016 15:13 - CONCLUSION: 1. Severe underlying emphysema. 2. Status post median sternotomy with postsurgical changes. Maikol Paredes MD Narrative Exam Ventilated, sedated. She does awake on my exam CV: RRR Ventilated 40% 5PEEP Abd: soft, seems tender to palpation, EVELYN dressing in place, NGT to suction A/P Assessment and Plan 86 yo F POD 2 s/p ex lap right colectomy, cholecystectomy, for cecal volvulus and common duct stones. Remains critical. Ok for trickle tube feeding. WIll undergo CPAP trials today. Appreciate critical care. CollinBryant lagos MD Nov 26, 2016 11:40
[2016-11-26] MEDS: PROPOFOL 1000 MG/100 ML INJ 100 ML IV PRN ×2 (13:37→21:12)
--- NOTE | 2016-11-26 16:14 | HHI.PR ---
Addendum to Inpatient Note Additional Information I saw the pt around 1600 Full note to follow Sharon Samayoa MD Nov 26, 2016 16:14
--- NOTE | 2016-11-26 16:30 | ECHRPT ---
Indication: chf CONCLUSIONS The left ventricular systolic function is moderately reduced with an estimated ejection fraction of 40%. Normal left ventricular size. Tijil-iw-mrrt mitral valve regurgitation. Mitral valve sclerosis. Mild mitral stenosis. Mitral annular calcification. Aortic valve sclerosis with mild to moderate stenosis. Trace aortic valve regurgitation. Moderate tricuspid regurgitation. Moderate to severe pulmonary hypertension (PAP 70 mmHg). BP: / HR: Rhythm: MEASUREMENTS (Male / Female) Normal Values Technical Quality:Good 2D ECHO LV Diastolic Diameter PLAX 4.3 cm 4.2 - 5.9 / 3.9 - 5.3 cm LV Systolic Diameter PLAX 3.7 cm IVS Diastolic Thickness 1.4 cm 0.6 - 1.0 / 0.6 - 0.9 cm LVPW Diastolic Thickness 1.0 cm 0.6 - 1.0 / 0.6 - 0.9 cm LV Relative Wall Thickness 0.6 RV Internal Dim ED PLAX 2.5 cm LVOT Diameter 1.9 cm M-MODE Aortic Root Diameter MM 3.0 cm LA Systolic Diameter MM 3.4 cm LA Ao Ratio MM 1.1 AV Cusp Separation MM 0.9 cm DOPPLER AV Peak Velocity 276.0 cm/s AV Peak Gradient 30.5 mmHg AV Mean Gradient 17.0 mmHg AV Velocity Time Integral 61.8 cm LVOT Peak Velocity 94.0 cm/s LVOT Peak Gradient 3.5 mmHg LVOT Velocity Time Integral 22.8 cm AV Area Cont Eq vti 1.0 cm AV Area Cont Eq pk 1.0 cm MV Area PHT 2.0 cm LV E' Lateral Velocity 6.3 cm/s LV E' Septal Velocity 5.9 cm/s TR Peak Velocity 388.0 cm/s TR Peak Gradient 60.2 mmHg FINDINGS LEFT VENTRICLE The left ventricular systolic function is [id number] reduced with an estimated ejection fra ction of 40%. Normal left ventricular size. RIGHT VENTRICLE Normal right ventricular size and systolic function. LEFT ATRIUM The left atrial size is normal. RIGHT ATRIUM The right atrial size is normal. ATRIAL SEPTUM Normal atrial septal thickness without atrial level shunting by limited color doppler interrogation. AORTA The aortic root and proximal ascending aorta are normal in size on limited imaging. MITRAL VALVE Structurally normal mitral valve. Ecxhm-[id number]-[id number] mitral valve regurgitation. The mitral valve area by Pressure Halftime Method is 2.0__ cm. AORTIC VALVE Aortic valve sclerosis is present. Trace aortic valve regurgitation. Aortic valve mean gradient is 17 mmHg. Aortic valve area is 1 cm. TRICUSPID VALVE Structurally normal tricuspid valve. Moderate TR. PULMONARY VALVE The pulmonary valve is not well visualized. VESSELS The inferior vena cava is normal in size. PERICARDIUM No pericardial effusion. Pablito Rivers MD, FACC (Electronically Signed) Final Date:26 November 2016 16:28
[2016-11-26] MEDS ORDERED: PHARMACY ORDERED LAB ONE (17:45)
[2016-11-26] MEDS: ENOXAPARIN SODIUM 30 MG/0.3 ML SYRINGE SQ SCH (17:53)
--- NOTE | 2016-11-26 17:54 | HHI.IDPN ---
Subjective Subjective Remarks s/p exp lap with R colectomy and cholecystectomy. Remains on vent afebrile having high NG out put, bacvk to LIWS No BM WBC up to 44 K stable BP UOP significantly dropped, 300/11 hrs today, creatinine up renal was consulted Antibiotics zosyn Allergies: Coded Allergies: No Known Allergies (Unverified , 11/24/16) Objective . Vital Signs Date Time Temp Pulse Resp B/P (MAP) Pulse Ox O2 Delivery O2 Flow Rate FiO2 11/26/16 16:20 96 40 11/26/16 11:44 95 40 11/26/16 08:06 96 40 11/26/16 06:00 91 11/26/16 04:00 40 11/26/16 04:00 99.1 93 14 101/55 (70) 93 11/26/16 04:00 93 11/26/16 03:47 97 40 11/26/16 02:00 98 11/26/16 01:10 94 40 11/26/16 00:00 97 11/26/16 00:00 40 11/26/16 00:00 99.1 97 16 100/51 (67) 94 11/25/16 22:06 95 40 11/25/16 22:00 132 11/25/16 20:18 94 40 11/25/16 20:00 99.7 123 24 117/56 (76) 94 11/25/16 20:00 123 11/25/16 20:00 40 11/26/16 11/26/16 11/27/16 15:00 23:00 07:00 Intake Total 1353 ml Balance 1353 ml IV Total 1353 ml . Laboratory Tests Test 11/24/16 18:00 11/25/16 04:00 11/26/16 04:05 White Blood Count 28.8 TH/MM3 40.9 TH/MM3 44.4 TH/MM3 Red Blood Count 3.63 MIL/MM3 3.47 MIL/MM3 3.12 MIL/MM3 Hemoglobin 9.9 GM/DL 9.3 GM/DL 8.3 GM/DL Hematocrit 30.1 % 28.5 % 25.4 % Mean Corpuscular Volume 82.9 FL 82.1 FL 81.5 FL Mean Corpuscular Hemoglobin 27.2 PG 26.9 PG 26.7 PG Mean Corpuscular Hemoglobin Concent 32.8 % 32.7 % 32.8 % Red Cell Distribution Width 16.7 % 16.4 % 16.2 % Platelet Count 149 TH/MM3 120 TH/MM3 119 TH/MM3 Mean Platelet Volume 10.5 FL 10.9 FL 10.4 FL CBC Comment AUTO DIFF AUTO DIFF AUTO DIFF Differential Total Cells Counted 100 100 100 Neutrophils % (Manual) 93 % 73 % 91 % Band Neutrophils % 5 % 17 % 3 % Lymphocytes % 1 % 1 % 2 % Monocytes % 1 % 9 % 4 % Neutrophils # (Manual) 28.2 TH/MM3 36.8 TH/MM3 41.7 TH/MM3 Differential Comment FINAL DIFF MANUAL FINAL DIFF MANUAL FINAL DIFF MANUAL Platelet Estimate LOW LOW LOW Platelet Morphology Comment NORMAL NORMAL NORMAL [place] Cells 2+ 2+ Acanthocytes 2+ 2+ 2+ Keratocytes OCC OCC Neutrophils (%) (Auto) 96.8 % Lymphocytes (%) (Auto) 1.5 % Monocytes (%) (Auto) 1.0 % Eosinophils (%) (Auto) 0.0 % Basophils (%) (Auto) 0.7 % Neutrophils # (Auto) 39.5 TH/MM3 Lymphocytes # (Auto) 0.6 TH/MM3 Monocytes # (Auto) 0.4 TH/MM3 Eosinophils # (Auto) 0.0 TH/MM3 Basophils # (Auto) 0.3 TH/MM3 Toxic Vacuolation PRESENT Dohle Bodies PRESENT PRESENT Ovalocytes 1+ Laboratory Tests Test 11/24/16 18:00 11/25/16 04:00 11/26/16 04:05 Blood Urea Nitrogen 31 MG/DL 33 MG/DL 41 MG/DL Creatinine 1.86 MG/DL 1.89 MG/DL 2.01 MG/DL Random Glucose 135 MG/DL 133 MG/DL 170 MG/DL Calcium Level 8.5 MG/DL 8.5 MG/DL 8.4 MG/DL Sodium Level 140 MEQ/L 143 MEQ/L 146 MEQ/L Potassium Level 4.2 MEQ/L 3.3 MEQ/L 3.0 MEQ/L Chloride Level 108 MEQ/L 110 MEQ/L 114 MEQ/L Carbon Dioxide Level 21.1 MEQ/L 20.6 MEQ/L 21.7 MEQ/L Anion Gap 11 MEQ/L 12 MEQ/L 10 MEQ/L Estimat Glomerular Filtration Rate 26 ML/MIN 25 ML/MIN 23 ML/MIN Total Protein 6.1 GM/DL 6.3 GM/DL Albumin 2.0 GM/DL 1.8 GM/DL Alkaline Phosphatase 199 U/L 173 U/L Aspartate Amino Transf (AST/SGOT) 105 U/L 80 U/L Alanine Aminotransferase (ALT/SGPT) 89 U/L 69 U/L Total Bilirubin 0.9 MG/DL 0.6 MG/DL Phosphorus Level 2.7 MG/DL Magnesium Level 2.0 MG/DL Microbiology Date/Time Source Procedure Growth Status 11/24/16 02:42 Blood Peripheral Aerobic Blood Culture - Preliminary NO GROWTH IN 2 DAYS Resulted 11/24/16 02:42 Blood Peripheral Anaerobic Blood Culture - Preliminary NO GROWTH IN 2 DAYS Resulted 11/24/16 02:38 Blood Peripheral Aerobic Blood Culture - Preliminary NO GROWTH IN 2 DAYS Resulted 11/24/16 02:38 Blood Peripheral Anaerobic Blood Culture - Preliminary NO GROWTH IN 2 DAYS Resulted Imaging Last Impressions Chest X-Ray 11/25/16 0000 Signed Impressions: Service Date/Time: Friday, November 25, 2016 07:30 - CONCLUSION: 1. Diffuse increased interstitial markings likely related to diffuse processes such as edema. This appears unchanged from the prior exam. 2. Possible small left effusion. 3. ET tube, NG tube and right internal jugular central line are well placed. Giovani Ruiz MD Abdomen/Pelvis CT 11/23/16 0000 Signed Impressions: Service Date/Time: Wednesday, November 23, 2016 21:46 - CONCLUSION: 1. 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 2. Mild head pancreatitis possible in the proper clinical setting. Patient has recently had ERCP and bile duct stone extraction. 3. Bibasilar pneumonia developing. Tiny pleural effusion on the right. 4. Chronic findings otherwise. Giovani Martinez MD Abdomen Ultrasound 11/23/16 0000 Signed Impressions: Service Date/Time: Wednesday, November 23, 2016 19:33 - CONCLUSION: 1. Somewhat limited study. Proximal superior mesenteric artery appears patent. 2. Mildly elevated flow velocities in the celiac and hepatic arteries of doubtful clinical significance. Giovani Martinez MD GI Procedure 11/21/16 0000 Signed Impressions: Service Date/Time: Monday, November 21, 2016 10:44 - CONCLUSION: ERCP as above. Reymundo Wilburn MD FACR Chest CT 11/20/16 1907 Signed Impressions: Service Date/Time: Sunday, November 20, 2016 15:13 - CONCLUSION: 1. Severe underlying emphysema. 2. Status post median sternotomy with postsurgical changes. Maikol Paredes MD Physical Exam CONSTITUTIONAL/GENERAL: This is an adequately nourished patient, in no apparent distress. sedated int'd on vent TUBES/LINES/DRAINS: SKIN: No jaundice, rashes, or lesions. Skin temperature appropriate. Not diaphoretic. EYES: Pupils equal and round and reactive. Fundi not examined. CARDIOVASCULAR: Regular rate and rhythm + 2/6 systolic murmur, no gallops, or rubs. No JVD. Peripheral pulses symmetric. Well perfused perifery RESPIRATORY/CHEST: Symmetric, unlabored respirations. Rhonchi to auscultation. Breath sounds equal bilaterally. No wheezes, rales, or rhonchi. GASTROINTESTINAL: Abdomen post op with dressing in place Bowel sounds not audible GENITOURINARY: Without palpable bladder distension. Sanchez catheter in place with small amount of dark yellow urine MUSCULOSKELETAL: Extremities without clubbing, cyanosis, + some edema. NEUROLOGICAL: sedated, responds to touch PSYCHIATRIC: unable to assess Assessment & Plan Remarks imer sp colon resection and cholecystectomy Sepsis from intraac=bdominal source (leukocytoss, leukemoid reaction, hypoxia, JOSUE) leukocytoss, leukemoid reaction: even worse todauy ? post op Pt and her and othe rfamily members deny that pt ever had problems with PCN. Pt states she was given PCN many years ago and it was uneventful Gallstones sp ERCP 2 yrs ago ARF REc': fu WBC fu path cont zosyn; adjust per GFR chk urine eos fu bl clx dw Sharon Warren MD Nov 26, 2016 17:54
[2016-11-26] MEDS: AMITRIPTYLINE HCL 10 MG TAB PO SCH (21:12)
[2016-11-27] VITALS (16 sets, daily range): BP systolic 100–145; BP diastolic 50–62; PULSE 74–111; RESP 14; TEMP 97.6–99.4; O2SAT 91–100
[2016-11-27] MEDS: INSULIN NovoLIN REGULAR SUPPLEMENTAL SCALE SQ SCH ×7 (00:15→23:52)
[2016-11-27] MEDS: RESP: ALBUTEROL 2.5 MG/IPRATROPIUM 0.5 MG NEB (SCH) NEB ×6 (00:16→19:26)
[2016-11-27] MEDS: PIPERACIL-TAZO 2.25 GM PREMIX 50 ML IV SCH ×4 (03:43→21:23)
[2016-11-27] MEDS: PROPOFOL 1000 MG/100 ML INJ 100 ML IV PRN ×2 (03:44→23:51)
[2016-11-27 03:56] LABS: HEMATOCRIT 23.9 % (35.0-46.0); MEAN CELL VOLUME 82.3 FL (80.0-100.0); MEAN CORPUSCULAR HEMOGLOBIN 26.4 PG (27.0-34.0); PLATELET COUNT 107 TH/MM3 (150-450); RED CELL DISTRIBUTION WIDTH 16.3 % (11.6-17.2); WHITE BLOOD COUNT 39.5 TH/MM3 (4.0-11.0)
[2016-11-27 04:01] LABS: HEMO FLAGS AUTO DIFF
[2016-11-27 04:18] LABS: ALT (GPT) 59 U/L (10-53); ANION GAP 8 MEQ/L (5-15); AST (GOT) 70 U/L (15-37); BICARBONATE 22.5 MEQ/L (21.0-32.0); BLOOD UREA NITROGEN 44 MG/DL (7-18); CHLORIDE 117 MEQ/L (98-107); GLOMERULAR FILTRATION RATE 29 ML/MIN (>89); POTASSIUM 3.7 MEQ/L (3.5-5.1); SODIUM (NA) 147 MEQ/L (136-145)
[2016-11-27 04:20] LABS: ALKALINE PHOSPHATASE 158 U/L (45-117); TOTAL BILIRUBIN ADULT 0.5 MG/DL (0.2-1.0)
[2016-11-27 05:37] LABS: BANDS 1 % (0-6); CORRECTED NUCLEATED RBC 1 /100 WBC (0-0); NEUTROPHIL # MANUAL DIFF 38.3 TH/MM3 (1.8-7.7); POLYS (SEG NEUTROPHILS) 96 % (16-70); SCAN/DIFF FINAL DIFF MANUAL; WBC DIFF SAMPLE 100
[2016-11-27 05:39] LABS: ACANTHOCYTES 2+ (NORMAL); PLATELET ESTIMATE SMEAR LOW (NORMAL); PLATELET MORPHOLOGY NORMAL (NORMAL)
[2016-11-27 05:40] LABS: DOHLE BODIES PRESENT (NONE SEEN); TOXIC VACUOLATION PRESENT (NONE SEEN)
[2016-11-27 05:42] LABS: KERATOCYTES OCC (NORMAL)
[2016-11-27] MEDS: SODIUM CHLOR 0.45% 1000 ML INJ 1,000 ML IV SCH (05:51)
[2016-11-27] MEDS: NIFEdipine 60 MG SUSTAINED RELEASE TAB PO SCH (09:00)
--- NOTE | 2016-11-27 09:55 | HHI.CCPN ---
Subjective Remarks/Hospital Course 86 y/o woman developed worsening SOB this afternoon associated with marked leukocytosis. Recent biliary instrumentation for obstruction 48 hours ago and probable sepsis. On appropriate antibiotics. Requiring NRBM now for oxygenation to 97%. Visibly labored breathing. CXR with interstitial edema. EF 35% 2014. Move to ICU. 11/24: Patient s/p colonoscopy this morning which showed mod. diverticulosis in sigmoid colon and hemorrhoids. Remains on NRB with good sats. Afebrile. Cr increased 1.51 from 1.08. 11/25 Patient s/p Ex lap, right colectomy and cholecystectomy. She kept intubated postop went into Afib with RVR overnight and placed on Cardizem drip 10mg/hr. 11/26 Patient is sedated with Diprivan, fentanyl and intubated. Afebrile. On Cardizem drip 5mg/hr. renal function worse with Cr: 2.01 from 1.89, UOP: 1L in 24 hrs 11/27 Patient remains sedated and intubated. Off Cardizem drip. Renal function is improving with Cr: 1.67 from 2.01. Afebrile. Objective Vital Signs Date Time Temp Pulse Resp B/P (MAP) Pulse Ox O2 Delivery O2 Flow Rate FiO2 11/27/16 07:59 94 40 11/27/16 06:00 86 11/27/16 04:00 98.9 14 102/50 (67) 11/24/16 18:15 Mechanical Ventilator 11/24/16 14:00 15.00 Intake and Output 11/27/16 11/27/16 11/28/16 08:00 16:00 00:00 Output Total 650 ml Balance -650 ml Result Diagram: 11/27/16 0325 11/27/16 0325 Other Results Laboratory Tests Test 11/27/16 03:25 White Blood Count 39.5 TH/MM3 Red Blood Count 2.90 MIL/MM3 Hemoglobin 7.6 GM/DL Hematocrit 23.9 % Mean Corpuscular Volume 82.3 FL Mean Corpuscular Hemoglobin 26.4 PG Mean Corpuscular Hemoglobin Concent 32.0 % Red Cell Distribution Width 16.3 % Platelet Count 107 TH/MM3 Mean Platelet Volume 10.0 FL CBC Comment AUTO DIFF Differential Total Cells Counted 100 Neutrophils % (Manual) 96 % Band Neutrophils % 1 % Monocytes % 3 % Neutrophils # (Manual) 38.3 TH/MM3 Nucleated Red Blood Cells 1 /100 WBC Differential Comment FINAL DIFF MANUAL Toxic Vacuolation PRESENT Dohle Bodies PRESENT Platelet Estimate LOW Platelet Morphology Comment NORMAL Acanthocytes 2+ Keratocytes OCC Blood Urea Nitrogen 44 MG/DL Creatinine 1.67 MG/DL Random Glucose 96 MG/DL Total Protein 5.9 GM/DL Albumin 1.7 GM/DL Calcium Level 8.2 MG/DL Alkaline Phosphatase 158 U/L Aspartate Amino Transf (AST/SGOT) 70 U/L Alanine Aminotransferase (ALT/SGPT) 59 U/L Total Bilirubin 0.5 MG/DL Sodium Level 147 MEQ/L Potassium Level 3.7 MEQ/L Chloride Level 117 MEQ/L Carbon Dioxide Level 22.5 MEQ/L Anion Gap 8 MEQ/L Estimat Glomerular Filtration Rate 29 ML/MIN Imaging Last Impressions Chest X-Ray 11/25/16 0000 Signed Impressions: Service Date/Time: Friday, November 25, 2016 07:30 - CONCLUSION: 1. Diffuse increased interstitial markings likely related to diffuse processes such as edema. This appears unchanged from the prior exam. 2. Possible small left effusion. 3. ET tube, NG tube and right internal jugular central line are well placed. Giovani Ruiz MD Abdomen/Pelvis CT 11/23/16 0000 Signed Impressions: Service Date/Time: Wednesday, November 23, 2016 21:46 - CONCLUSION: 1. 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 2. Mild head pancreatitis possible in the proper clinical setting. Patient has recently had ERCP and bile duct stone extraction. 3. Bibasilar pneumonia developing. Tiny pleural effusion on the right. 4. Chronic findings otherwise. Giovani Martinez MD Abdomen Ultrasound 11/23/16 0000 Signed Impressions: Service Date/Time: Wednesday, November 23, 2016 19:33 - CONCLUSION: 1. Somewhat limited study. Proximal superior mesenteric artery appears patent. 2. Mildly elevated flow velocities in the celiac and hepatic arteries of doubtful clinical significance. Giovani Martinez MD GI Procedure 11/21/16 0000 Signed Impressions: Service Date/Time: Monday, November 21, 2016 10:44 - CONCLUSION: ERCP as above. Reymundo Wilburn MD FACR Chest CT 11/20/16 1407 Signed Impressions: Service Date/Time: Sunday, November 20, 2016 15:13 - CONCLUSION: 1. Severe underlying emphysema. 2. Status post median sternotomy with postsurgical changes. Maikol Paredes MD Objective Remarks GENERAL: Patient is 86 yo intubated SKIN: Warm and dry. HEAD: Normocephalic. EYES: No scleral icterus. No injection or drainage. NECK: Supple, trachea midline. No JVD or lymphadenopathy. CARDIOVASCULAR: Tachycardic without murmurs, gallops, or rubs. RESPIRATORY: Breath sounds equal bilaterally. No accessory muscle use. GASTROINTESTINAL: Abdomen soft, tenderness on palpation.. MUSCULOSKELETAL: No cyanosis, or edema. Neuro: Intubated however she is awake and alert. A/P Assessment and Plan 1. VDRF 2. 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 S/P biliary manipulation ERCP for obstructed duct with stones and sludge . 4. Systolic heart failure. 5 Leukocytosis 6 Anemia, thrombocytopenia 7 Elevated LFT;s 8 JOSUE 9 Afib 10 Encephalopathy Plan: Neuro: on Diprivan/fentanyl infusion for sedation. Daily sedation vacation. Check CT brain r/o acute intracranial process. Check Ammonia level Dilaudid PRN for pain Pulm: Continue with vent support and maintain sat >92% Bronchodilators, ICU vent bundle, SBT daily as adelina. CT chest 11/20: Severe underlying emphysema. Status post median sternotomy with postsurgical changes. CV: Monitor HR and BP keep MAP>65mmHg Lactic acid 11/23: 0.9 Echo from 11/26 EF 40%, severe pulm HTN ( PAP 70mmHg) On ASA, Procardia XL 60mg daily. Lipitor held ( elevated LFT's) : Monitor renal function, I/O's, avoid nephrotoxins Change IVF D5 1/2NS@50ml/hr Cr: 1.67 today from 2, UOP: 925 ml in 24 hrs, renal is following- Dr. Ferrari Place on Free water 250ml Q12, monitor sodium level GI: Monitor LFT;s(trending down) Start trickle feeds- Glucerna 1.5@10ml/hr for now discussed with Dr. Polanco. Cecal Volvulus s/p Exp lap, right colectomy and cholecystectomy 11/24 s/p Colonoscopy 11/24 showed Diverticulosis in sigmoid colon, hemorrhoids CT abd/pelvis: Bowel gas pattern most compatible a cecal volvulus and does appear to be contributing to associated obstruction. Mild head pancreatitis possible in the proper clinical setting. Patient has recently had ERCP and bile duct stone extraction. Bibasilar pneumonia developing. Tiny pleural effusion on the right. US abdomen: Proximal superior mesenteric artery appears patent. ID: Continue with abx per ID ( Zosyn) Monitor for signs of infections ( Fever, WBC) Follow up on BC 11/24: NGTD . WBC is trending down. Heme: Monitor CBC Endo: SSI with accuchecks GI prophylaxis- Protonix 40mg daily DVT prophylaxis- Lovenox 30mg daily Lines: Right IJ placed in OR 11/24 CCT 30 mins Marian Rodríguez MD Nov 27, 2016 09:55
[2016-11-27] MEDS: FREE WATER G-TUBE SCH ×2 (10:00→21:00)
[2016-11-27] MEDS: PANTOPRAZOLE SODIUM 40 MG VIAL IV PUSH SCH (10:02)
[2016-11-27] MEDS: CILOSTAZOL 100 MG TAB PO SCH ×2 (10:02→21:20)
[2016-11-27] MEDS: SODIUM CHLORIDE 0.9% FLUSH 10 ML FLUSH IV FLUSH SCH ×2 (10:03→21:22)
[2016-11-27] MEDS: URSODIOL 300 MG CAP PO SCH ×2 (10:03→21:20)
[2016-11-27] MEDS: ASPIRIN 81 MG CHEW TAB CHEW SCH (10:03)
--- NOTE | 2016-11-27 11:10 | HHI.PR ---
Subjective Subjective Notes No major changes. Remains critically ill. Objective Vitals/I&O Vital Signs Date Time Temp Pulse Resp B/P (MAP) Pulse Ox O2 Delivery O2 Flow Rate FiO2 11/27/16 07:59 94 40 11/27/16 06:00 86 11/27/16 04:00 98.9 14 102/50 (67) 11/24/16 18:15 Mechanical Ventilator 11/24/16 14:00 15.00 Labs Laboratory Tests Test 11/27/16 03:25 White Blood Count 39.5 Red Blood Count 2.90 Hemoglobin 7.6 Hematocrit 23.9 Mean Corpuscular Volume 82.3 Mean Corpuscular Hemoglobin 26.4 Mean Corpuscular Hemoglobin Concent 32.0 Red Cell Distribution Width 16.3 Platelet Count 107 Mean Platelet Volume 10.0 CBC Comment AUTO DIFF Differential Total Cells Counted 100 Neutrophils % (Manual) 96 Band Neutrophils % 1 Monocytes % 3 Neutrophils # (Manual) 38.3 Nucleated Red Blood Cells 1 Differential Comment FINAL DIFF MANUAL Toxic Vacuolation PRESENT Dohle Bodies PRESENT Platelet Estimate LOW Platelet Morphology Comment NORMAL Acanthocytes 2+ Keratocytes OCC Blood Urea Nitrogen 44 Creatinine 1.67 Random Glucose 96 Total Protein 5.9 Albumin 1.7 Calcium Level 8.2 Alkaline Phosphatase 158 Aspartate Amino Transf (AST/SGOT) 70 Alanine Aminotransferase (ALT/SGPT) 59 Total Bilirubin 0.5 Sodium Level 147 Potassium Level 3.7 Chloride Level 117 Carbon Dioxide Level 22.5 Anion Gap 8 Estimat Glomerular Filtration Rate 29 Date/Time Source Procedure Growth Status 11/24/16 02:42 Blood Peripheral Aerobic Blood Culture - Preliminary NO GROWTH IN 3 DAYS Resulted 11/24/16 02:42 Blood Peripheral Anaerobic Blood Culture - Preliminary NO GROWTH IN 3 DAYS Resulted Radiology Last Impressions Chest X-Ray 11/24/16 0000 Signed Impressions: Service Date/Time: Saturday, November 24, 2016 11:57 - CONCLUSION: 1. Interval placement of nasogastric catheter with tip beyond the GE junction omitted from the image. 2. Persistent diffuse coarse interstitial prominence likely reflecting interstitial edema/pneumonia superimposed on chronic interstitial changes. 3. Stable mild bibasilar airspace disease, likely atelectasis. Sam Bozorgmanesh, MD Abdomen/Pelvis CT 11/23/16 0000 Signed Impressions: Service Date/Time: Wednesday, November 23, 2016 21:46 - CONCLUSION: 1. 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 2. Mild head pancreatitis possible in the proper clinical setting. Patient has recently had ERCP and bile duct stone extraction. 3. Bibasilar pneumonia developing. Tiny pleural effusion on the right. 4. Chronic findings otherwise. Giovani Martinez MD Abdomen Ultrasound 11/23/16 0000 Signed Impressions: Service Date/Time: Wednesday, November 23, 2016 19:33 - CONCLUSION: 1. Somewhat limited study. Proximal superior mesenteric artery appears patent. 2. Mildly elevated flow velocities in the celiac and hepatic arteries of doubtful clinical significance. Giovani Martinez MD GI Procedure 11/21/16 0000 Signed Impressions: Service Date/Time: Monday, November 21, 2016 10:44 - CONCLUSION: ERCP as above. Reymundo Wilburn MD FACR Chest CT 11/20/16 1407 Signed Impressions: Service Date/Time: Sunday, November 20, 2016 15:13 - CONCLUSION: 1. Severe underlying emphysema. 2. Status post median sternotomy with postsurgical changes. Maikol Paredes MD Narrative Exam Ventilated. She is mildly agitated CV: RRR Ventilated 40% 5PEEP Abd: soft, EVELYN dressing in place, NGT to suction A/P Assessment and Plan 86 yo F POD 3 s/p ex lap right colectomy, cholecystectomy, for cecal volvulus and common duct stones. Remains critical. Ok for trickle tube feeding, is starting today. LFTS mildly elevated but bilirubin normal. Appreciate critical care. Bryant Polanco MD Nov 27, 2016 11:10
[2016-11-27] MEDS ORDERED: HALOPERIDOL LACTATE 5 MG/ML AMP IV PUSH ONE (11:15)
--- NOTE | 2016-11-27 11:33 | HHI.NPPN ---
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 Patient also underwent repeat ERCP for obstructed bile duct November 21, 2016. Patient noted to have had a serum creatinine level 0.8 15 September 2016. On presentation creatinine level at this institution 1.59 and has now deteriorated to 2.01. Patient in the ICU with development of respiratory insufficiency and worsening leukocytosis. Patient unable to provide any history secondary to her clinical condition. Interval History Remains intubated. Review of Systems General General Remarks Unable to obtain 2/2 to clinical condition Objective Data Data Vital Signs Date Time Temp Pulse Resp B/P (MAP) Pulse Ox O2 Delivery O2 Flow Rate FiO2 11/27/16 07:59 94 40 11/27/16 06:00 86 11/27/16 04:30 94 40 11/27/16 04:00 40 11/27/16 04:00 84 11/27/16 04:00 98.9 84 14 102/50 (67) 93 11/27/16 02:00 84 11/27/16 00:00 89 11/27/16 00:00 92 40 11/27/16 00:00 99.4 89 14 100/51 (67) 92 11/27/16 00:00 40 11/26/16 22:00 91 11/26/16 21:10 93 40 11/26/16 20:00 40 11/26/16 20:00 103 11/26/16 20:00 99.3 103 14 99/53 (68) 92 11/26/16 16:20 96 40 11/26/16 16:00 98.8 11/26/16 16:00 40 11/26/16 12:00 99.0 11/26/16 11:44 95 40 -: 11/27/16 0325 11/27/16 0325 Imaging Last Impressions Chest X-Ray 11/25/16 0000 Signed Impressions: Service Date/Time: Friday, November 25, 2016 07:30 - CONCLUSION: 1. Diffuse increased interstitial markings likely related to diffuse processes such as edema. This appears unchanged from the prior exam. 2. Possible small left effusion. 3. ET tube, NG tube and right internal jugular central line are well placed. Giovani Ruiz MD Abdomen/Pelvis CT 11/23/16 0000 Signed Impressions: Service Date/Time: Wednesday, November 23, 2016 21:46 - CONCLUSION: 1. 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 2. Mild head pancreatitis possible in the proper clinical setting. Patient has recently had ERCP and bile duct stone extraction. 3. Bibasilar pneumonia developing. Tiny pleural effusion on the right. 4. Chronic findings otherwise. Giovani Martinez MD Abdomen Ultrasound 11/23/16 0000 Signed Impressions: Service Date/Time: Wednesday, November 23, 2016 19:33 - CONCLUSION: 1. Somewhat limited study. Proximal superior mesenteric artery appears patent. 2. Mildly elevated flow velocities in the celiac and hepatic arteries of doubtful clinical significance. Giovani Martinez MD GI Procedure 11/21/16 0000 Signed Impressions: Service Date/Time: Monday, November 21, 2016 10:44 - CONCLUSION: ERCP as above. Reymundo Wilburn MD FACR Chest CT 11/20/16 1407 Signed Impressions: Service Date/Time: Sunday, November 20, 2016 15:13 - CONCLUSION: 1. Severe underlying emphysema. 2. Status post median sternotomy with postsurgical changes. Maikol Paredes MD Medication Review Current Medications Medications (Trade) Dose Ordered Sig/Jazzmine Route Start Time Stop Time Status Last Admin (NS Flush) 2 ml UNSCH PRN IV FLUSH 11/20/16 16:15 (NS Flush) 2 ml BID IV FLUSH 11/20/16 21:00 11/27/16 10:03 (Tylenol) 650 mg Q4H PRN PO 11/20/16 16:15 (Zofran Inj) 4 mg Q6H PRN IVP 11/20/16 16:15 (Restoril) 15 mg HS PRN PO 11/20/16 16:15 11/23/16 23:20 (Lovenox Inj) 30 mg Q24H SQ 11/20/16 16:15 Future hold 11/26/16 17:53 (Narcan Inj) 0.4 mg UNSCH PRN IV 11/20/16 16:15 (Milk Of Magnesia Liq) 30 ml Q12H PRN PO 11/20/16 16:15 (Elavil) 10 mg HS PO 11/20/16 21:00 11/26/16 21:12 (Aspirin Chew) 81 mg DAILY CHEW 11/21/16 09:00 11/27/16 10:03 (Lipitor) 80 mg HS PO 11/20/16 21:00 Future Hold 11/23/16 20:42 (Pletal) 100 mg BID PO 11/20/16 21:00 11/27/16 10:02 (Procardia Xl) 60 mg DAILY PO 11/21/16 09:00 11/26/16 10:47 (Dilaudid Pf Inj) 0.5 mg Q4H PRN IV PUSH 11/21/16 14:45 11/25/16 04:11 (Perham 5-325 Mg) 1 tab Q4H PRN PO 11/21/16 15:00 11/23/16 15:54 (Actigall) 300 mg Q12HR PO 11/22/16 21:00 11/27/16 10:03 (Duoneb Neb) 1 ampule Q4HR NEB NEB 11/24/16 12:00 11/27/16 07:44 (Duoneb Neb) 1 ampule Q2HR NEB PRN NEB 11/24/16 11:45 (Protonix Inj) 40 mg DAILY IV PUSH 11/24/16 12:00 11/27/16 10:02 (D50w (Vial) Inj) 50 ml UNSCH PRN IV 11/24/16 12:15 (Glucagon Inj) 1 mg UNSCH PRN OTHER 11/24/16 12:15 (NovoLIN R SUPPLEMENTAL SCALE) 1 Q4H SQ 11/24/16 12:15 11/26/16 04:12 Diltiazem HCl 125 mg/Sodium Chloride 125 ml @ 5 mls/hr TITRATE PRN IV 11/25/16 03:15 11/25/16 03:51 Propofol 100 ml @ 1.89 mls/hr TITRATE PRN IV 11/25/16 07:30 11/27/16 03:44 Piperacillin Sod/ Tazobactam Sod 50 ml @ 100 mls/hr Q6H IV 11/25/16 09:00 11/27/16 10:02 Fentanyl Citrate 250 ml @ 5 mls/hr TITRATE PRN IV 11/25/16 16:15 11/25/16 16:40 (Free Water) 250 ml Q12HR G-TUBE 11/27/16 10:00 Dextrose/Sodium Chloride 1,000 ml @ 50 mls/hr Q20H IV 11/27/16 10:00 Physical Exam General Appearance: No Acute Distress Eyes Eye Remarks Prosthetic R eye Neck Neck Exam: Trachea Midline Pulmonary Resp Exam: Clear Bilaterally, Breath Sounds Equal Cardiology CV Exam: Regular, Normal Sinus Rhythm, Murmur CV Remarks LUSB Extremeties Extremities Exam: Moderate Edema (1-2+ pitting BUE and BLE) Neurologic Neuro Exam: Unresponsive Assessment/Plan Problem List: (1) JOSUE (acute kidney injury) ICD Codes: N17.9 - JOSUE (acute kidney injury) Status: Acute Plan: I believe that the patient has established acute kidney injury secondary to abdominal surgery SCr improved slightly today. UOP fair Ur eos pending Will continue to monitor. Medications should be adjusted for the patient's estimated GFR if clinically indicated. Avoid agents with significant potential for nephrotoxicity possible including NSAIDs for analgesia, iodine contrast agents. Gadolinium is contraindicated if the GFR is below 30. Permanent Comment: Secondary to sepsis. Last Edited By: Radha Ferrari on Nov 26, 2016 11:19 (2) Sepsis ICD Codes: A41.9 - Sepsis, unspecified organism Plan: Management per infectious disease. Permanent Comment: Patient status post right colectomy for volvulus as well as ERCP obstructed bile duct November 21, 2016. Last Edited By: Radha Ferrari on Nov 26, 2016 11:20 (3) Hypernatremia ICD Codes: E87.0 - Hyperosmolality and hypernatremia Status: Acute Plan: Secondary to relative free water deficit. On IV 1/2NS and CC started free water (4) Hypertension ICD Codes: I10 - Hypertension Status: Chronic Problem Qualifiers (1) Hypertension: Qualified Codes: I10 - Essential (primary) hypertension Kait Loyola Nov 27, 2016 11:33
[2016-11-27] MEDS: DEXT 5%-NACL 0.45% 1000 ML INJ 1,000 ML IV SCH (12:23)
[2016-11-27] MEDS: fentaNYL DRIP 250 ML IV PRN (14:00)
--- NOTE | 2016-11-27 15:04 | RADRPT ---
EXAM DATE/TIME: 11/27/2016 14:47 [facility] COMPARISON: No previous studies available for comparison. INDICATIONS : Altered mental status RADIATION DOSE: 33.24 CTDIvol (mGy) MEDICAL HISTORY : Hypertension. SURGICAL HISTORY : CABG Hysterectomy.Carotid endarterectomy. ENCOUNTER: Initial ACUITY: 1 day PAIN SCALE: Non-responsive LOCATION: cranial TECHNIQUE: Multiple contiguous axial images were obtained of the head. Using automated exposure control and adj ustment of the mA and/or kV according to patient size, radiation dose was kept as low as reasonably a chievable to obtain optimal diagnostic quality images. DICOM format image data is available electro nically for review and comparison. FINDINGS: There is no intracranial hemorrhage. There is a low attenuation in the periventricular white matter, more prominent in the left parietal region. Cannot exclude a subacute infarct. This would be better e valuated with MRI. No significant mass effect. No shift. No hydrocephalus. CONCLUSION: 1. Questionable edema or subacute infarct in the left parietal deep white matter. This would be mahad r evaluated with MRI. No intracranial hemorrhage or significant mass effect. Romario Kauffman MD on November 27, 2016 at 14:57 Board Certified Radiologist. This report was verified electronically.
[2016-11-27] MEDS: ENOXAPARIN SODIUM 30 MG/0.3 ML SYRINGE SQ SCH (15:39)
--- NOTE | 2016-11-27 18:40 | RADRPT ---
EXAM DATE/TIME: 11/27/2016 18:10 [facility] COMPARISON: No previous studies available for comparison. INDICATIONS : CVA. MEDICAL HISTORY : Hypertension. SURGICAL HISTORY : Hysterectomy. CABG Carotid endarterectomy. Right eye removed. Vaginal mesh. ENCOUNTER: Subsequent ACUITY: 1 day PAIN SCORE: Nonresponsive. LOCATION: cranial TECHNIQUE: Multiplanar, multisequence MRI of the brain was performed without contrast. FINDINGS: CEREBRUM: The ventricles are normal for age. Scattered old tiny lacunar infarcts are noted within the bilatera l basilar ganglia. No evidence of midline shift, mass lesion, hemorrhage or acute infarction. No ext raaxial fluid collections are seen. The pituitary gland and suprasellar cistern are normal in config uration. WHITE MATTER: Moderate periventricular and subcortical white matter small vessel ischemic changes are noted bilater ally. POSTERIOR FOSSA: The cerebellum and brainstem are intact. The 4th ventricle is midline. The cerebellopontine angle is unremarkable. The cerebellar tonsils are normal in position. DIFFUSION IMAGING: No focal areas of restricted diffusion are seen. No evidence of acute infarction. EXTRACRANIAL: The visualized portions of the orbits are unremarkable. There is a fluid level within the sphenoid si nuses. Fluid is noted within the mastoid air cells bilaterally. CONCLUSION: 1. Moderate periventricular and subcortical white matter small vessel ischemic changes bilaterally. 2. 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 3. No acute infarct, acute hemorrhage, mass effect or extra-axial fluid collection. 4. Fluid level within sphenoid sinuses. 5. Fluid within the mastoid air cells bilaterally. Hasmukh Oakes MD on November 27, 2016 at 18:36 Board Certified Radiologist. This report was verified electronically.
--- NOTE | 2016-11-27 18:59 | HHI.PR ---
Addendum to Inpatient Note Additional Information Pt seen around 1600 Full note to follow Sharon Samayoa MD Nov 27, 2016 18:59
[2016-11-27] MEDS: AMITRIPTYLINE HCL 10 MG TAB PO SCH (21:20)
--- NOTE | 2016-11-27 22:45 | HHI.IDPN ---
Subjective Subjective Remarks s/p exp lap with R colectomy and cholecystectomy. Remains on vent afebrile Still no BM WBC down to 39 K stable BP UOP better, but still < 1L/d; creatininte improved Apperntly having MS change, not FC Antibiotics zosyn Allergies: Coded Allergies: No Known Allergies (Unverified , 11/24/16) Objective . Vital Signs Date Time Temp Pulse Resp B/P (MAP) Pulse Ox O2 Delivery O2 Flow Rate FiO2 11/27/16 22:00 77 11/27/16 20:00 97.6 74 14 106/52 (70) 98 11/27/16 20:00 40 11/27/16 20:00 74 11/27/16 19:27 98 40 11/27/16 18:41 100 11/27/16 16:00 40 11/27/16 16:00 98.6 97 14 126/60 (82) 91 11/27/16 15:46 91 40 11/27/16 15:05 99 11/27/16 12:51 94 40 11/27/16 12:00 40 11/27/16 12:00 98.7 111 14 145/62 (89) 96 11/27/16 08:00 98.8 87 14 126/60 (82) 93 11/27/16 08:00 40 11/27/16 07:59 94 40 11/27/16 06:00 86 11/27/16 04:30 94 40 11/27/16 04:00 40 11/27/16 04:00 84 11/27/16 04:00 98.9 84 14 102/50 (67) 93 11/27/16 02:00 84 11/27/16 00:00 89 11/27/16 00:00 92 40 11/27/16 00:00 99.4 89 14 100/51 (67) 92 11/27/16 00:00 40 11/27/16 11/27/16 11/28/16 15:00 23:00 07:00 Intake Total 950 ml Output Total 890 ml Balance 60 ml IV Total 700 ml Other 250 ml Output Urine Total 890 ml # Bowel Movements 0 . Laboratory Tests Test 11/26/16 04:05 11/27/16 03:25 White Blood Count 44.4 TH/MM3 39.5 TH/MM3 Red Blood Count 3.12 MIL/MM3 2.90 MIL/MM3 Hemoglobin 8.3 GM/DL 7.6 GM/DL Hematocrit 25.4 % 23.9 % Mean Corpuscular Volume 81.5 FL 82.3 FL Mean Corpuscular Hemoglobin 26.7 PG 26.4 PG Mean Corpuscular Hemoglobin Concent 32.8 % 32.0 % Red Cell Distribution Width 16.2 % 16.3 % Platelet Count 119 TH/MM3 107 TH/MM3 Mean Platelet Volume 10.4 FL 10.0 FL CBC Comment AUTO DIFF AUTO DIFF Differential Total Cells Counted 100 100 Neutrophils % (Manual) 91 % 96 % Band Neutrophils % 3 % 1 % Lymphocytes % 2 % Monocytes % 4 % 3 % Neutrophils # (Manual) 41.7 TH/MM3 38.3 TH/MM3 Differential Comment FINAL DIFF MANUAL FINAL DIFF MANUAL Dohle Bodies PRESENT PRESENT Platelet Estimate LOW LOW Platelet Morphology Comment NORMAL NORMAL Ovalocytes 1+ Acanthocytes 2+ 2+ Nucleated Red Blood Cells 1 /100 WBC Toxic Vacuolation PRESENT Keratocytes OCC Laboratory Tests Test 11/26/16 04:05 11/27/16 03:25 11/27/16 12:15 Blood Urea Nitrogen 41 MG/DL 44 MG/DL Creatinine 2.01 MG/DL 1.67 MG/DL Random Glucose 170 MG/DL 96 MG/DL Total Protein 6.3 GM/DL 5.9 GM/DL Albumin 1.8 GM/DL 1.7 GM/DL Calcium Level 8.4 MG/DL 8.2 MG/DL Phosphorus Level 2.7 MG/DL Magnesium Level 2.0 MG/DL Alkaline Phosphatase 173 U/L 158 U/L Aspartate Amino Transf (AST/SGOT) 80 U/L 70 U/L Alanine Aminotransferase (ALT/SGPT) 69 U/L 59 U/L Total Bilirubin 0.6 MG/DL 0.5 MG/DL Sodium Level 146 MEQ/L 147 MEQ/L Potassium Level 3.0 MEQ/L 3.7 MEQ/L Chloride Level 114 MEQ/L 117 MEQ/L Carbon Dioxide Level 21.7 MEQ/L 22.5 MEQ/L Anion Gap 10 MEQ/L 8 MEQ/L Estimat Glomerular Filtration Rate 23 ML/MIN 29 ML/MIN Ammonia 35 MCMOL/L Imaging Last Impressions Head CT 11/27/16 0000 Signed Impressions: Service Date/Time: Sunday, November 27, 2016 14:47 - CONCLUSION: 1. Questionable edema or subacute infarct in the left parietal deep white matter. This would be better evaluated with MRI. No intracranial hemorrhage or significant mass effect. Romario Kauffman MD Brain MRI 11/27/16 0000 Signed Impressions: Service Date/Time: Sunday, November 27, 2016 18:10 - CONCLUSION: 1. Moderate periventricular and subcortical white matter small vessel ischemic changes bilaterally. 2. 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 3. No acute infarct, acute hemorrhage, mass effect or extra-axial fluid collection. 4. Fluid level within sphenoid sinuses. 5. Fluid within the mastoid air cells bilaterally. Hasmukh Oakes MD Chest X-Ray 11/25/16 0000 Signed Impressions: Service Date/Time: Friday, November 25, 2016 07:30 - CONCLUSION: 1. Diffuse increased interstitial markings likely related to diffuse processes such as edema. This appears unchanged from the prior exam. 2. Possible small left effusion. 3. ET tube, NG tube and right internal jugular central line are well placed. Giovani Ruiz MD Abdomen/Pelvis CT 11/23/16 0000 Signed Impressions: Service Date/Time: Wednesday, November 23, 2016 21:46 - CONCLUSION: 1. 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 2. Mild head pancreatitis possible in the proper clinical setting. Patient has recently had ERCP and bile duct stone extraction. 3. Bibasilar pneumonia developing. Tiny pleural effusion on the right. 4. Chronic findings otherwise. Giovani Martinez MD Abdomen Ultrasound 11/23/16 0000 Signed Impressions: Service Date/Time: Wednesday, November 23, 2016 19:33 - CONCLUSION: 1. Somewhat limited study. Proximal superior mesenteric artery appears patent. 2. Mildly elevated flow velocities in the celiac and hepatic arteries of doubtful clinical significance. Giovani Martinez MD GI Procedure 11/21/16 0000 Signed Impressions: Service Date/Time: Monday, November 21, 2016 10:44 - CONCLUSION: ERCP as above. Reymundo Wilburn MD FACR Chest CT 11/20/16 1407 Signed Impressions: Service Date/Time: Sunday, November 20, 2016 15:13 - CONCLUSION: 1. Severe underlying emphysema. 2. Status post median sternotomy with postsurgical changes. Maikol Paredes MD Physical Exam CONSTITUTIONAL/GENERAL: This is an adequately nourished patient, in no apparent distress. sedated int'd on vent TUBES/LINES/DRAINS: SKIN: No jaundice, rashes, or lesions. Skin temperature appropriate. Not diaphoretic. EYES: Pupils equal and round and reactive. Fundi not examined. CARDIOVASCULAR: Regular rate and rhythm + 2/6 systolic murmur, no gallops, or rubs. No JVD. Peripheral pulses symmetric. Well perfused perifery RESPIRATORY/CHEST: Symmetric, unlabored respirations. Rhonchi to auscultation. Breath sounds equal bilaterally. No wheezes, rales, or rhonchi. GASTROINTESTINAL: Abdomen post op with dressing in place Bowel sounds not audible GENITOURINARY: Without palpable bladder distension. Sanchez catheter in place with small amount of dark yellow urine MUSCULOSKELETAL: Extremities without clubbing, cyanosis, + 1+ edema. NEUROLOGICAL: awake, agitated, eyes opened, but not tracks/focusing or following PSYCHIATRIC: unable to assess Assessment & Plan Remarks imer sp colon resection and cholecystectomy path benigh:cecum volvulus and chronic calculous cholecstitis Sepsis from intraac=bdominal source (leukocytoss, leukemoid reaction, hypoxia, JOSUE) leukocytoss, leukemoid reaction: even worse todauy improved Pt and her and othe rfamily members deny that pt ever had problems with PCN. Pt states she was given PCN many years ago and it was uneventful Gallstones sp ERCP 2 yrs ago ARF REc': fu WBC cont zosyn; adjust per GFR chk urine eos fu bl clx dw Sharon Warren MD Nov 27, 2016 22:45
[2016-11-28] VITALS (25 sets, daily range): BP systolic 92–145; BP diastolic 45–88; PULSE 75–137; RESP 14–26; TEMP 98.1–100.2; O2SAT 89–100
[2016-11-28] MEDS: RESP: ALBUTEROL 2.5 MG/IPRATROPIUM 0.5 MG NEB (SCH) NEB ×3 (00:02→08:00)
[2016-11-28] MEDS: PIPERACIL-TAZO 2.25 GM PREMIX 50 ML IV SCH ×4 (03:08→20:33)
--- NOTE | 2016-11-28 03:41 | RADRPT ---
EXAM DATE/TIME: 11/28/2016 03:04 [facility] COMPARISON: CHEST SINGLE AP, November 25, 2016, 7:30. INDICATIONS : Short of breath. MEDICAL HISTORY : Hypertension. Cardiovascular disease. CVA. SURGICAL HISTORY : CABG. ENCOUNTER: Subsequent ACUITY: 1 week PAIN SCORE: 0/10 LOCATION: Bilateral chest FINDINGS: Single portable frontal view the chest shows the tip of endotracheal tube 4 cm from the kashif. Right internal jugular veins venous line. Tip of the nasogastric tube in the body the stomach. Small bilat eral pleural effusions and diffuse bilateral pulmonary infiltrates predominantly at the bases. Infilt rates are worse. Heart is normal in size. Median sternotomy wires. CONCLUSION: Worsening bilateral pulmonary infiltrates and small effusions. Shant Dyer Jr., MD on November 28, 2016 at 3:39 Board Certified Radiologist. This report was verified electronically.
[2016-11-28 03:44] LABS: AUTOMATED NEUTROPHIL # 23.9 TH/MM3 (1.8-7.7); BASOPHIL # 0.1 TH/MM3 (0-0.2); BASOPHIL % 0.2 % (0.0-2.0); EOSINOPHIL # 0.1 TH/MM3 (0-0.4); EOSINOPHIL % 0.3 % (0.0-4.0); LYMPH % 4.9 % (9.0-44.0); LYMPHOCYTE # 1.3 TH/MM3 (1.0-4.8); MEAN CELL VOLUME 82.8 FL (80.0-100.0); MEAN CORPUSCULAR HEMOGLOBIN 27.1 PG (27.0-34.0); MEAN CORPUSCULAR HGB CONC 32.7 % (32.0-36.0); MONO % 4.5 % (0.0-8.0); NEUT % 90.1 % (16.0-70.0); PLATELET COUNT 81 TH/MM3 (150-450); RED BLOOD COUNT 2.39 MIL/MM3 (4.00-5.30); WHITE BLOOD COUNT 26.6 TH/MM3 (4.0-11.0)
[2016-11-28 03:46] LABS: HEMO FLAGS AUTO DIFF
[2016-11-28 03:48] LABS: HEMATOCRIT 19.8 % (35.0-46.0)
[2016-11-28 04:02] LABS: ALT (GPT) 43 U/L (10-53); ANION GAP 7 MEQ/L (5-15); AST (GOT) 51 U/L (15-37); BICARBONATE 22.6 MEQ/L (21.0-32.0); BLOOD UREA NITROGEN 37 MG/DL (7-18); CHLORIDE 118 MEQ/L (98-107); GLOMERULAR FILTRATION RATE 40 ML/MIN (>89); POTASSIUM 3.7 MEQ/L (3.5-5.1); SODIUM (NA) 148 MEQ/L (136-145)
[2016-11-28 04:05] LABS: ALKALINE PHOSPHATASE 119 U/L (45-117); TOTAL BILIRUBIN ADULT 0.5 MG/DL (0.2-1.0)
[2016-11-28] MEDS: INSULIN NovoLIN REGULAR SUPPLEMENTAL SCALE SQ SCH ×5 (04:15→20:03)
[2016-11-28 04:39] LABS: ACANTHOCYTES 1+ (NORMAL)
[2016-11-28 04:40] LABS: OVALOCYTES 1+ (NORMAL); PLATELET ESTIMATE SMEAR LOW (NORMAL); PLATELET MORPHOLOGY NORMAL (NORMAL); SCAN/DIFF AUTO DIFF CONFIRMED
[2016-11-28] MEDS: DEXT 5%-NACL 0.45% 1000 ML INJ 1,000 ML IV SCH ×2 (05:56→10:28)
[2016-11-28 08:40] LABS: BLOOD, URINE NEG (NEG); GLUCOSE,URINE NEG (NEG); KETONE, URINE NEG (NEG); NITRITE,URINE NEG (NEG); SQUAMOUS EPITHELIAL CELL URINE <1 /hpf (0-5); URINE COLOR YELLOW (YELLW/STRAW)
[2016-11-28] MEDS: ASPIRIN 81 MG CHEW TAB CHEW SCH (08:46)
[2016-11-28] MEDS: CILOSTAZOL 100 MG TAB PO SCH ×2 (08:46→20:34)
[2016-11-28] MEDS: URSODIOL 300 MG CAP PO SCH ×2 (08:46→20:34)
[2016-11-28] MEDS: PANTOPRAZOLE SODIUM 40 MG VIAL IV PUSH SCH (08:47)
[2016-11-28] MEDS: SODIUM CHLORIDE 0.9% FLUSH 10 ML FLUSH IV FLUSH SCH ×2 (08:47→20:33)
[2016-11-28] MEDS: NIFEdipine 60 MG SUSTAINED RELEASE TAB PO SCH (08:47)
[2016-11-28] MEDS: FREE WATER G-TUBE SCH (08:47)
[2016-11-28] MEDS: PROPOFOL 1000 MG/100 ML INJ 100 ML IV PRN ×2 (09:33→20:04)
[2016-11-28] MEDS: fentaNYL DRIP 250 ML IV PRN (09:38)
--- NOTE | 2016-11-28 11:20 | HHI.IDPN ---
Subjective Subjective Remarks ID [id number] for s/p exp lap with R colectomy and cholecystectomy. Remains on vent afebrile Still no BM WBC down to 39 K stable BP UOP better, but still < 1L/d; creatinine improved Apparently having MS change, not FC Antibiotics zosyn Lines Line sites with no e.o infection Past Medical History reviewed Allergies: Coded Allergies: No Known Allergies (Unverified , 11/24/16) Objective . Vital Signs Date Time Temp Pulse Resp B/P (MAP) Pulse Ox O2 Delivery O2 Flow Rate FiO2 11/28/16 10:14 95 40 11/28/16 09:45 99.2 94 14 94/46 95 11/28/16 09:27 99.1 95 14 124/57 94 11/28/16 09:23 99.1 99 14 124/57 94 11/28/16 08:21 95 40 11/28/16 06:42 98.9 88 14 98/49 96 11/28/16 06:13 98.9 87 14 99/49 97 11/28/16 06:08 98.4 88 14 92/50 97 11/28/16 06:03 98.8 94 14 98/53 96 11/28/16 06:00 95 11/28/16 05:44 99.1 87 14 98/52 96 11/28/16 04:06 99 40 11/28/16 04:00 99.1 84 14 95/52 (66) 99 11/28/16 04:00 40 11/28/16 04:00 84 11/28/16 02:00 80 11/28/16 00:00 98.1 75 14 95/45 (62) 100 11/28/16 00:00 75 11/28/16 00:00 40 11/28/16 00:00 99 40 11/27/16 22:00 77 11/27/16 20:00 97.6 74 14 106/52 (70) 98 11/27/16 20:00 40 11/27/16 20:00 74 11/27/16 19:27 98 40 11/27/16 18:41 100 11/27/16 16:00 40 11/27/16 16:00 98.6 97 14 126/60 (82) 91 11/27/16 15:46 91 40 11/27/16 15:05 99 11/27/16 12:51 94 40 11/27/16 12:00 40 11/27/16 12:00 98.7 111 14 145/62 (89) 96 11/28/16 11/28/16 11/29/16 15:00 23:00 07:00 Intake Total 400 ml Balance 400 ml Packed Cells 400 ml . Laboratory Tests Test 11/27/16 03:25 11/28/16 03:27 White Blood Count 39.5 TH/MM3 26.6 TH/MM3 Red Blood Count 2.90 MIL/MM3 2.39 MIL/MM3 Hemoglobin 7.6 GM/DL 6.5 GM/DL Hematocrit 23.9 % 19.8 % Mean Corpuscular Volume 82.3 FL 82.8 FL Mean Corpuscular Hemoglobin 26.4 PG 27.1 PG Mean Corpuscular Hemoglobin Concent 32.0 % 32.7 % Red Cell Distribution Width 16.3 % 16.0 % Platelet Count 107 TH/MM3 81 TH/MM3 Mean Platelet Volume 10.0 FL 10.1 FL CBC Comment AUTO DIFF AUTO DIFF Differential Total Cells Counted 100 Neutrophils % (Manual) 96 % Band Neutrophils % 1 % Monocytes % 3 % Neutrophils # (Manual) 38.3 TH/MM3 Nucleated Red Blood Cells 1 /100 WBC Differential Comment FINAL DIFF MANUAL AUTO DIFF CONFIRMED Toxic Vacuolation PRESENT Dohle Bodies PRESENT Platelet Estimate LOW LOW Platelet Morphology Comment NORMAL NORMAL Acanthocytes 2+ 1+ Keratocytes OCC Neutrophils (%) (Auto) 90.1 % Lymphocytes (%) (Auto) 4.9 % Monocytes (%) (Auto) 4.5 % Eosinophils (%) (Auto) 0.3 % Basophils (%) (Auto) 0.2 % Neutrophils # (Auto) 23.9 TH/MM3 Lymphocytes # (Auto) 1.3 TH/MM3 Monocytes # (Auto) 1.2 TH/MM3 Eosinophils # (Auto) 0.1 TH/MM3 Basophils # (Auto) 0.1 TH/MM3 Ovalocytes 1+ Laboratory Tests Test 11/27/16 03:25 11/27/16 12:15 11/28/16 03:27 Blood Urea Nitrogen 44 MG/DL 37 MG/DL Creatinine 1.67 MG/DL 1.26 MG/DL Random Glucose 96 MG/DL 93 MG/DL Total Protein 5.9 GM/DL 5.3 GM/DL Albumin 1.7 GM/DL 1.4 GM/DL Calcium Level 8.2 MG/DL 7.6 MG/DL Alkaline Phosphatase 158 U/L 119 U/L Aspartate Amino Transf (AST/SGOT) 70 U/L 51 U/L Alanine Aminotransferase (ALT/SGPT) 59 U/L 43 U/L Total Bilirubin 0.5 MG/DL 0.5 MG/DL Sodium Level 147 MEQ/L 148 MEQ/L Potassium Level 3.7 MEQ/L 3.7 MEQ/L Chloride Level 117 MEQ/L 118 MEQ/L Carbon Dioxide Level 22.5 MEQ/L 22.6 MEQ/L Anion Gap 8 MEQ/L 7 MEQ/L Estimat Glomerular Filtration Rate 29 ML/MIN 40 ML/MIN Ammonia 35 MCMOL/L Imaging Last Impressions Head CT 11/27/16 0000 Signed Impressions: Service Date/Time: Sunday, November 27, 2016 14:47 - CONCLUSION: 1. Questionable edema or subacute infarct in the left parietal deep white matter. This would be better evaluated with MRI. No intracranial hemorrhage or significant mass effect. Romario Kauffman MD Brain MRI 11/27/16 0000 Signed Impressions: Service Date/Time: Sunday, November 27, 2016 18:10 - CONCLUSION: 1. Moderate periventricular and subcortical white matter small vessel ischemic changes bilaterally. 2. 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 3. No acute infarct, acute hemorrhage, mass effect or extra-axial fluid collection. 4. Fluid level within sphenoid sinuses. 5. Fluid within the mastoid air cells bilaterally. Hasmukh Oakes MD Chest X-Ray 11/25/16 0000 Signed Impressions: Service Date/Time: Friday, November 25, 2016 07:30 - CONCLUSION: 1. Diffuse increased interstitial markings likely related to diffuse processes such as edema. This appears unchanged from the prior exam. 2. Possible small left effusion. 3. ET tube, NG tube and right internal jugular central line are well placed. Giovani Ruiz MD Abdomen/Pelvis CT 11/23/16 0000 Signed Impressions: Service Date/Time: Wednesday, November 23, 2016 21:46 - CONCLUSION: 1. 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 2. Mild head pancreatitis possible in the proper clinical setting. Patient has recently had ERCP and bile duct stone extraction. 3. Bibasilar pneumonia developing. Tiny pleural effusion on the right. 4. Chronic findings otherwise. Giovani Martinez MD Abdomen Ultrasound 11/23/16 0000 Signed Impressions: Service Date/Time: Wednesday, November 23, 2016 19:33 - CONCLUSION: 1. Somewhat limited study. Proximal superior mesenteric artery appears patent. 2. Mildly elevated flow velocities in the celiac and hepatic arteries of doubtful clinical significance. Giovani Martinez MD GI Procedure 11/21/16 0000 Signed Impressions: Service Date/Time: Monday, November 21, 2016 10:44 - CONCLUSION: ERCP as above. Reymundo Wilburn MD FACR Chest CT 11/20/16 1407 Signed Impressions: Service Date/Time: Sunday, November 20, 2016 15:13 - CONCLUSION: 1. Severe underlying emphysema. 2. Status post median sternotomy with postsurgical changes. Maikol Paredes MD Physical Exam CONSTITUTIONAL/GENERAL: This is an adequately nourished patient, in no apparent distress. sedated int'd on vent TUBES/LINES/DRAINS: SKIN: No jaundice, rashes, or lesions. Skin temperature appropriate. Not diaphoretic. EYES: Pupils equal and round and reactive. Fundi not examined. CARDIOVASCULAR: Regular rate and rhythm + 2/6 systolic murmur, no gallops, or rubs. No JVD. Peripheral pulses symmetric. Well perfused perifery RESPIRATORY/CHEST: Symmetric, unlabored respirations. Rhonchi to auscultation. Breath sounds equal bilaterally. No wheezes, rales, or rhonchi. GASTROINTESTINAL: Abdomen post op with dressing in place Bowel sounds not audible GENITOURINARY: Without palpable bladder distension. Sanchez catheter in place with small amount of dark yellow urine MUSCULOSKELETAL: Extremities without clubbing, cyanosis, + 1+ edema. NEUROLOGICAL: awake, agitated, eyes opened, but not tracks/focusing or following PSYCHIATRIC: unable to assess Assessment & Plan Remarks Volvulus sp colon resection and cholecystectomy path benign:cecum volvulus and chronic calculous cholecstitis Sepsis from intraabdominal source (leukocytosis, leukemoid reaction, hypoxia, JOSUE) leukocytosis, leukemoid reaction: even worse today improved Pt and her and othe rfamily members deny that pt ever had problems with PCN. Pt states she was given PCN many years ago and it was uneventful Gallstones sp ERCP 2 yrs ago ARF Rec: fu WBC cont zosyn; adjust per GFR Consider deescalation to Unasyn if continues to do well. On the other hand if not improving consider diflucan fu bl clx Angeli Moses RN, MD Nov 28, 2016 11:20
--- NOTE | 2016-11-28 12:43 | HHI.PR ---
Subjective Subjective Notes Received 2U PRBC this am. Renal function improving. Not tolerating trickle feeds well. Objective Vitals/I&O Vital Signs Date Time Temp Pulse Resp B/P (MAP) Pulse Ox O2 Delivery O2 Flow Rate FiO2 11/28/16 12:15 95 40 11/28/16 09:45 99.2 94 14 94/46 11/24/16 18:15 Mechanical Ventilator 11/24/16 14:00 15.00 Labs Laboratory Tests Test 11/28/16 03:27 11/28/16 07:45 White Blood Count 26.6 Red Blood Count 2.39 Hemoglobin 6.5 Hematocrit 19.8 Mean Corpuscular Volume 82.8 Mean Corpuscular Hemoglobin 27.1 Mean Corpuscular Hemoglobin Concent 32.7 Red Cell Distribution Width 16.0 Platelet Count 81 Mean Platelet Volume 10.1 Neutrophils (%) (Auto) 90.1 Lymphocytes (%) (Auto) 4.9 Monocytes (%) (Auto) 4.5 Eosinophils (%) (Auto) 0.3 Basophils (%) (Auto) 0.2 Neutrophils # (Auto) 23.9 Lymphocytes # (Auto) 1.3 Monocytes # (Auto) 1.2 Eosinophils # (Auto) 0.1 Basophils # (Auto) 0.1 CBC Comment AUTO DIFF Differential Comment AUTO DIFF CONFIRMED Platelet Estimate LOW Platelet Morphology Comment NORMAL Ovalocytes 1+ Acanthocytes 1+ Blood Urea Nitrogen 37 Creatinine 1.26 Random Glucose 93 Total Protein 5.3 Albumin 1.4 Calcium Level 7.6 Alkaline Phosphatase 119 Aspartate Amino Transf (AST/SGOT) 51 Alanine Aminotransferase (ALT/SGPT) 43 Total Bilirubin 0.5 Sodium Level 148 Potassium Level 3.7 Chloride Level 118 Carbon Dioxide Level 22.6 Anion Gap 7 Estimat Glomerular Filtration Rate 40 Urine Color YELLOW Urine Turbidity CLEAR Urine pH 6.0 Urine Specific Kirkman 1.020 Urine Protein TRACE Urine Glucose (UA) NEG Urine Ketones NEG Urine Occult Blood NEG Urine Nitrite NEG Urine Bilirubin NEG Urine Urobilinogen LESS THAN 2.0 Urine Leukocyte Esterase NEG Urine RBC 1 Urine WBC 1 Urine Squamous Epithelial Cells <1 Urine Eosinophils NONE SEEN Date/Time Source Procedure Growth Status 11/24/16 02:42 Blood Peripheral Aerobic Blood Culture - Preliminary NO GROWTH IN 4 DAYS Resulted 11/24/16 02:42 Blood Peripheral Anaerobic Blood Culture - Preliminary NO GROWTH IN 4 DAYS Resulted Radiology Last Impressions Chest X-Ray 11/24/16 0000 Signed Impressions: Service Date/Time: Thursday, November 24, 2016 11:57 - CONCLUSION: 1. Interval placement of nasogastric catheter with tip beyond the GE junction omitted from the image. 2. Persistent diffuse coarse interstitial prominence likely reflecting interstitial edema/pneumonia superimposed on chronic interstitial changes. 3. Stable mild bibasilar airspace disease, likely atelectasis. Sam Buckner MD Abdomen/Pelvis CT 11/23/16 0000 Signed Impressions: Service Date/Time: Wednesday, November 23, 2016 21:46 - CONCLUSION: 1. 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 2. Mild head pancreatitis possible in the proper clinical setting. Patient has recently had ERCP and bile duct stone extraction. 3. Bibasilar pneumonia developing. Tiny pleural effusion on the right. 4. Chronic findings otherwise. Giovani Martinez MD Abdomen Ultrasound 11/23/16 0000 Signed Impressions: Service Date/Time: Wednesday, November 23, 2016 19:33 - CONCLUSION: 1. Somewhat limited study. Proximal superior mesenteric artery appears patent. 2. Mildly elevated flow velocities in the celiac and hepatic arteries of doubtful clinical significance. Giovani Martinez MD GI Procedure 11/21/16 0000 Signed Impressions: Service Date/Time: Monday, November 21, 2016 10:44 - CONCLUSION: ERCP as above. Reymundo Wilburn MD FACR Chest CT 11/20/16 1407 Signed Impressions: Service Date/Time: Sunday, November 20, 2016 15:13 - CONCLUSION: 1. Severe underlying emphysema. 2. Status post median sternotomy with postsurgical changes. Maikol Paredes MD Narrative Exam Ventilated, sedated CV: RRR Ventilated 40% 5PEEP Abd: soft, EVELYN dressing in place, NGT with enteral feeding at 10cc/h A/P Assessment and Plan 86 yo F POD 4 s/p ex lap right colectomy, cholecystectomy, for cecal volvulus and common duct stones. Remains critical. Cont trickle tube feeding Will dc dressing on POD 7 Appreciate critical care. Bryant Polanco MD Nov 28, 2016 12:43
[2016-11-28] MEDS ORDERED: METOPROLOL TARTRATE 5 MG/5 ML VIAL ONE (14:20)
[2016-11-28] MEDS: ENOXAPARIN SODIUM 30 MG/0.3 ML SYRINGE SQ SCH (14:58)
[2016-11-28 15:27] LABS: HEMATOCRIT 28.9 % (35.0-46.0); MEAN CORPUSCULAR HEMOGLOBIN 27.2 PG (27.0-34.0); MEAN CORPUSCULAR HGB CONC 32.7 % (32.0-36.0); PLATELET COUNT 76 TH/MM3 (150-450); RED BLOOD COUNT 3.48 MIL/MM3 (4.00-5.30); RED CELL DISTRIBUTION WIDTH 15.4 % (11.6-17.2); WHITE BLOOD COUNT 30.5 TH/MM3 (4.0-11.0)
--- NOTE | 2016-11-28 15:28 | HHI.CCPN ---
Subjective Remarks/Hospital Course 86 y/o woman developed worsening SOB this afternoon associated with marked leukocytosis. Recent biliary instrumentation for obstruction 48 hours ago and probable sepsis. On appropriate antibiotics. Requiring NRBM now for oxygenation to 97%. Visibly labored breathing. CXR with interstitial edema. EF 35% 2014. Move to ICU. 11/24: Patient s/p colonoscopy this morning which showed mod. diverticulosis in sigmoid colon and hemorrhoids. Remains on NRB with good sats. Afebrile. Cr increased 1.51 from 1.08. 11/25 Patient s/p Ex lap, right colectomy and cholecystectomy. She kept intubated postop went into Afib with RVR overnight and placed on Cardizem drip 10mg/hr. 11/26 Patient is sedated with Diprivan, fentanyl and intubated. Afebrile. On Cardizem drip 5mg/hr. renal function worse with Cr: 2.01 from 1.89, UOP: 1L in 24 hrs 11/27 Patient remains sedated and intubated. Off Cardizem drip. Renal function is improving with Cr: 1.67 from 2.01. Afebrile. 11/28 remains intubated sedated. Heart rate controlled. Creat 1.26. Hb 6.5. Status post 2 units PRBC today. WBC count decreased from 40,000-26,000. Creat improving 1.26 Objective Vital Signs Date Time Temp Pulse Resp B/P (MAP) Pulse Ox O2 Delivery O2 Flow Rate FiO2 11/28/16 12:15 95 40 11/28/16 09:45 99.2 94 14 94/46 11/24/16 18:15 Mechanical Ventilator 11/24/16 14:00 15.00 Intake and Output 11/28/16 11/28/16 11/28/16 07:59 15:59 23:59 Intake Total 250 ml 720 ml Output Total 440 ml Balance -190 ml 720 ml Result Diagram: 11/28/16 0327 11/28/16 0327 Imaging Last Impressions Chest X-Ray 11/25/16 0000 Signed Impressions: Service Date/Time: Friday, November 25, 2016 07:30 - CONCLUSION: 1. Diffuse increased interstitial markings likely related to diffuse processes such as edema. This appears unchanged from the prior exam. 2. Possible small left effusion. 3. ET tube, NG tube and right internal jugular central line are well placed. Giovani Ruiz MD Abdomen/Pelvis CT 11/23/16 0000 Signed Impressions: Service Date/Time: Wednesday, November 23, 2016 21:46 - CONCLUSION: 1. 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 2. Mild head pancreatitis possible in the proper clinical setting. Patient has recently had ERCP and bile duct stone extraction. 3. Bibasilar pneumonia developing. Tiny pleural effusion on the right. 4. Chronic findings otherwise. Giovani Martinez MD Abdomen Ultrasound 11/23/16 0000 Signed Impressions: Service Date/Time: Wednesday, November 23, 2016 19:33 - CONCLUSION: 1. Somewhat limited study. Proximal superior mesenteric artery appears patent. 2. Mildly elevated flow velocities in the celiac and hepatic arteries of doubtful clinical significance. Giovani Martinez MD GI Procedure 11/21/16 0000 Signed Impressions: Service Date/Time: Monday, November 21, 2016 10:44 - CONCLUSION: ERCP as above. Reymundo Wilburn MD FACR Chest CT 11/20/16 1407 Signed Impressions: Service Date/Time: Sunday, November 20, 2016 15:13 - CONCLUSION: 1. Severe underlying emphysema. 2. Status post median sternotomy with postsurgical changes. Maikol Paredes MD Objective Remarks GENERAL: Patient is 86 yo intubated, critically ill encephalopathy SKIN: Warm and dry. HEAD: Normocephalic. EYES: No scleral icterus. No injection or drainage. NECK: Supple, trachea midline. No JVD or lymphadenopathy. CARDIOVASCULAR: Tachycardic without murmurs, gallops, or rubs. RESPIRATORY: Breath sounds equal bilaterally. No accessory muscle use. GASTROINTESTINAL: Abdomen soft, tenderness on palpation. EVELYN dressing in place , with abdominal binder covering MUSCULOSKELETAL: No cyanosis, or edema. Neuro: Intubated however she is awake and moving extremities. Prosthetic left eye A/P Assessment and Plan Assessment: Acute respiratory failure Cecal Volvulus s/p Exp lap, right colectomy and cholecystectomy 11/24 S/P biliary manipulation ERCP for obstructed duct with stones and sludge 11/21. Systolic heart failure. Severe sepsis Anemia requiring transfusion, thrombocytopenia Elevated LFT;s JOSUE Atrial fibrillation with RVR Encephalopathy Plan: Neuro: On Diprivan/fentanyl infusion for sedation. Daily sedation vacation. MRI brain showed moderate small vessel disease, no acute findings. Ammonia level 35 11/27 Dilaudid PRN for breakthrough pain Pulm: Continue with vent support and maintain sat >92% Bronchodilators, ICU vent bundle, SBT daily as adelina. Mental status will not permit extubation CT chest 11/20: Severe underlying emphysema. Status post median sternotomy with postsurgical changes. CV: Monitor HR and BP keep MAP>65mmHg Lactic acid 11/23: 0.9. Echo from 11/26 EF 40%, severe pulmonary HTN ( PAP 70mmHg) On ASA, Procardia XL 60mg daily. Lipitor held ( elevated LFT's) : Monitor renal function, I/O's, avoid nephrotoxins Change IVF D5 1/2NS@50ml/hr Cr: 1.26 today from 1.67, UOP: 1330 ml in 24 hrs, renal is following- Dr. Ferrari Free water 250ml Q12, monitor sodium level GI: Monitor LFT;s(trending down) Trickle feeds- Glucerna 1.5@10ml/hr per Dr. Polanco. Cecal Volvulus s/p Exp lap, right colectomy and cholecystectomy 11/24 s/p Colonoscopy 11/24 showed Diverticulosis in sigmoid colon, hemorrhoids CT abd/pelvis: Bowel gas pattern most compatible a cecal volvulus and does appear to be contributing to associated obstruction. Mild head pancreatitis possible in the proper clinical setting. Patient has recently had ERCP and bile duct stone extraction. Bibasilar pneumonia developing. Tiny pleural effusion on the right. US abdomen: Proximal superior mesenteric artery appears patent. ID: Continue with abx per ID ( Zosyn) Monitor for signs of infections ( Fever, WBC) Follow up on BC 11/24: NGTD . WBC is trending down. 26K today from 40K Heme: Monitor CBC Endo: SSI with accuchecks GI prophylaxis- Protonix 40mg daily DVT prophylaxis- Lovenox 30mg daily Lines: Right IJ placed in OR 11/24 CCT 32 mins Ruddy Matute MD Nov 28, 2016 15:28
[2016-11-28 15:29] LABS: REVIEW FLAG FINAL
--- NOTE | 2016-11-28 15:58 | HHI.NPPN ---
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 Patient also underwent repeat ERCP for obstructed bile duct November 21, 2016. Patient noted to have had a serum creatinine level 0.8 15 September 2016. On presentation creatinine level at this institution 1.59 and has now deteriorated to 2.01. Patient in the ICU with development of respiratory insufficiency and worsening leukocytosis. Patient unable to provide any history secondary to her clinical condition. Interval History Patient remains on ventilatory support. Daughter by bedside. Review of Systems General General Remarks Unable to obtain 2/2 to clinical condition Objective Data Data 11/28/16 11/29/16 19:00 07:00 Intake Total 720 ml Balance 720 ml Packed Cells 720 ml Vital Signs Date Time Temp Pulse Resp B/P (MAP) Pulse Ox O2 Delivery O2 Flow Rate FiO2 11/28/16 12:15 95 40 11/28/16 10:14 95 40 11/28/16 09:45 99.2 94 14 94/46 95 11/28/16 09:27 99.1 95 14 124/57 94 11/28/16 09:23 99.1 99 14 124/57 94 11/28/16 08:21 95 40 11/28/16 06:42 98.9 88 14 98/49 96 11/28/16 06:13 98.9 87 14 99/49 97 11/28/16 06:08 98.4 88 14 92/50 97 11/28/16 06:03 98.8 94 14 98/53 96 11/28/16 06:00 95 11/28/16 05:44 99.1 87 14 98/52 96 11/28/16 04:06 99 40 11/28/16 04:00 99.1 84 14 95/52 (66) 99 11/28/16 04:00 40 11/28/16 04:00 84 11/28/16 02:00 80 11/28/16 00:00 98.1 75 14 95/45 (62) 100 11/28/16 00:00 75 11/28/16 00:00 40 11/28/16 00:00 99 40 11/27/16 22:00 77 11/27/16 20:00 97.6 74 14 106/52 (70) 98 11/27/16 20:00 40 11/27/16 20:00 74 11/27/16 19:27 98 40 11/27/16 18:41 100 11/27/16 16:00 40 11/27/16 16:00 98.6 97 14 126/60 (82) 91 -: 11/28/16 1500 11/28/16 0327 Physical Exam General Appearance: No Acute Distress Neck Neck Exam: Trachea Midline Pulmonary Resp Exam: Clear Bilaterally, Breath Sounds Equal Cardiology CV Exam: Regular, Normal Sinus Rhythm, Murmur Extremeties Extremities Exam: Moderate Edema (1-2+ pitting BUE and BLE) Neurologic Neuro Exam: Unresponsive Assessment/Plan Problem List: (1) JOSUE (acute kidney injury) ICD Codes: N17.9 - JOSUE (acute kidney injury) Status: Acute Plan: I believe that the patient has established acute kidney injury secondary to abdominal surgery Patient's creatinine level is improved again today and a urine output is fairly good. Continue current fluid management including free water for hypernatremia. Hopefully the sodium level will improve by tomorrow if not additional free water indicated. Medications should be adjusted for the patient's estimated GFR if clinically indicated. Avoid agents with significant potential for nephrotoxicity possible including NSAIDs for analgesia, iodine contrast agents. Gadolinium is contraindicated if the GFR is below 30. Permanent Comment: Secondary to sepsis. Last Edited By: Radha Ferrari on Nov 26, 2016 11:19 (2) Sepsis ICD Codes: A41.9 - Sepsis, unspecified organism Plan: Management per infectious disease. Permanent Comment: Patient status post right colectomy for volvulus as well as ERCP obstructed bile duct November 21, 2016. Last Edited By: Radha Ferrari on Nov 26, 2016 11:20 (3) Hypernatremia ICD Codes: E87.0 - Hyperosmolality and hypernatremia Status: Acute Plan: Secondary to relative free water deficit. On IV 1/2NS and CC started free water (4) Hypertension ICD Codes: I10 - Hypertension Status: Chronic Problem Qualifiers (1) Hypertension: Qualified Codes: I10 - Essential (primary) hypertension Kesha Ferrari MD Nov 28, 2016 15:58
[2016-11-28] MEDS ORDERED: METOPROLOL TARTRATE 5 MG/5 ML VIAL IV PUSH ONE ×2 (16:15→16:45)
[2016-11-28] MEDS: AMITRIPTYLINE HCL 10 MG TAB PO SCH (20:34)
--- NOTE | 2016-11-28 22:31 | MB ---
cc: BRITT TUTTLE MD DATE OF CONSULTATION 11/28/2016 REASON FOR CONSULTATION Encephalopathy ? Cerebrovascular accident. HISTORY OF THE PRESENT ILLNESS Ms. Forde is an 86-year-old female who was admitted on 11/20/2016 to [facility] because of chest pain and abdominal pain. Has a history of hypertension and hyperlipidemia. She developed worsening of shortness of breath and associated with leukocytosis. A recent biliary instrumentation was done for obstruction and probable sepsis. Intubated and sedated. Exploratory laparotomy and right colectomy, cholecystectomy was done. The patient went into atrial fibrillation with rapid ventricular response on 11/25. The patient was noted to wake up confused, moves all extremities but non purposefully. REVIEW OF SYSTEMS Unable to obtain but as per medical record review a 12 point system review was negative except for what is stated in the history of present illness. PAST MEDICAL HISTORY As per review of medical records: 1. Atrial fibrillation. 2. Coronary artery disease. 3. Hypertension. 4. Gastroesophageal reflux disease. 5. Prosthetic eye. 6. Cardiomyopathy. PAST SURGICAL HISTORY 1. Coronary artery bypass graft. 2. Bladder suspension. 3. Prosthesis eye, right eye surgery. 4. Bile duct obstruction with stent placement. MEDICATIONS 1. Morphine. 2. Ondansetron. 3. Levofloxacin. 4. Metronidazole. 5. Atorvastatin. 6. Aspirin. 7. Amitriptyline. 8. Levofloxacin. 9. Cilostazol. 10. Nifedipine. 11. Pantoprazole. 12. [place]. 13. Diltiazem. FAMILY HISTORY Unable to obtain due to condition. SOCIAL HISTORY Per medical records. No history of tobacco abuse, one to two alcohol drinks daily. No history of illicit drug abuse. PHYSICAL EXAMINATION GENERAL: Intubated, sedated. HEENT: Atraumatic. Right prosthetic eye. Endotracheal tube. CARDIOVASCULAR: Regular rate and rhythm. LUNGS: Clear to auscultation. No wheezing. NEUROLOGIC: Mildly sedated. Mechanical ventilated. Responds to sternal rub and pain by wincing and moving both upper limbs in a flexion manner. LABORATORY DATA White blood cell count 30.5, hemoglobin 9.5, MCV 83. Sodium 148, potassium 3.7, BUN 37, creatinine 1.26. Calcium 7.6. AST 51, ALT 43. Alkaline 119. Ammonia 35. IMAGING - MRI of the brain without contrast revealed moderate periventricular and subcortical white matter, small vessel ischemic changes bilaterally, scattered old lacunar infarcts within the bilateral basal ganglia. No acute infarct, hemorrhage or mass effect. Fluid level within the sphenoid sinuses. Fluid level within the mastoid air cells bilaterally. ASSESSMENT AND PLAN 1. Encephalopathy given the marked leukocytosis, evaluated liver function tests and elevated ammonia, a metabolic / infectious component is a likely etiology. 2. Imaging of the brain revealed bilateral basal ganglia infarct and extensive white matter disease that may contribute to the encephalopathic process. 3. Acute respiratory failure. 4. Acute kidney injury. 5. Atrial fibrillation with rapid ventricular response. PLAN 1. Neurological checks q.one hourly. 2. Continue supportive medical therapy. 3. EEG. 4. Deep venous thrombosis prophylaxis. Thank you for the opportunity to participate in the care of your patient. MD VALENCIA Day/KK /9:53 PM /10:04 PM PETER
[2016-11-29] VITALS (18 sets, daily range): BP systolic 90–110; BP diastolic 45–54; PULSE 74–154; RESP 14–23; TEMP 97.4–99.5; O2SAT 92–100
[2016-11-29] MEDS: FREE WATER G-TUBE SCH ×3 (02:00→17:04)
[2016-11-29] MEDS: PIPERACIL-TAZO 2.25 GM PREMIX 50 ML IV SCH ×4 (02:54→20:47)
[2016-11-29] MEDS: PROPOFOL 1000 MG/100 ML INJ 100 ML IV PRN ×2 (02:55→14:25)
[2016-11-29] MEDS ORDERED: DILTIAZEM HCL 25 MG/5 ML VIAL IV ONE (03:30)
[2016-11-29] MEDS: DILTIAZEM INJ 125 MG in SODIUM CHLORIDE 0.9% INJ 100 ML IV PRN ×2 (03:46→12:35)
[2016-11-29] MEDS: INSULIN NovoLIN REGULAR SUPPLEMENTAL SCALE SQ SCH ×5 (04:15→20:15)
[2016-11-29] MEDS ORDERED: DILTIAZEM HCL 25 MG/5 ML VIAL IV PUSH ONE (04:15)
--- NOTE | 2016-11-29 07:54 | HHI.CCPN ---
Subjective Remarks/Hospital Course 86 y/o woman developed worsening SOB this afternoon associated with marked leukocytosis. Recent biliary instrumentation for obstruction 48 hours ago and probable sepsis. On appropriate antibiotics. Requiring NRBM now for oxygenation to 97%. Visibly labored breathing. CXR with interstitial edema. EF 35% 2014. Move to ICU. 11/24: Patient s/p colonoscopy this morning which showed mod. diverticulosis in sigmoid colon and hemorrhoids. Remains on NRB with good sats. Afebrile. Cr increased 1.51 from 1.08. 11/25 Patient s/p Ex lap, right colectomy and cholecystectomy. She kept intubated postop went into Afib with RVR overnight and placed on Cardizem drip 10mg/hr. 11/26 Patient is sedated with Diprivan, fentanyl and intubated. Afebrile. On Cardizem drip 5mg/hr. renal function worse with Cr: 2.01 from 1.89, UOP: 1L in 24 hrs 11/27 Patient remains sedated and intubated. Off Cardizem drip. Renal function is improving with Cr: 1.67 from 2.01. Afebrile. 11/28 remains intubated sedated. Heart rate controlled. Creat 1.26. Hb 6.5. Status post 2 units PRBC today. WBC count decreased from 40,000-26,000. Creat improving 1.26 Subjective 11/29: Patient A. fib with RVR currently on diltiazem drip at 50 mg an hour for rate control. Hemodynamically stable. Objective Vital Signs Date Time Temp Pulse Resp B/P (MAP) Pulse Ox O2 Delivery O2 Flow Rate FiO2 11/29/16 06:00 120 11/29/16 04:00 40 11/29/16 04:00 96 11/29/16 04:00 98.8 18 94/50 (65) Intake and Output 11/29/16 11/29/16 11/30/16 08:00 16:00 00:00 Intake Total 600 ml Output Total 500 ml Balance 100 ml Result Diagram: 11/28/16 1500 11/28/16 032 Other Results Microbiology Date/Time Source Procedure Growth Status 11/24/16 02:42 Blood Peripheral Aerobic Blood Culture - Preliminary NO GROWTH IN 4 DAYS Resulted 11/24/16 02:42 Blood Peripheral Anaerobic Blood Culture - Preliminary NO GROWTH IN 4 DAYS Resulted Imaging Last Impressions Chest X-Ray 11/28/16 0600 Signed Impressions: Service Date/Time: Monday, November 28, 2016 03:04 - CONCLUSION: Worsening bilateral pulmonary infiltrates and small effusions. Shant Dyer Jr., MD Head CT 11/27/16 0000 Signed Impressions: Service Date/Time: Sunday, November 27, 2016 14:47 - CONCLUSION: 1. Questionable edema or subacute infarct in the left parietal deep white matter. This would be better evaluated with MRI. No intracranial hemorrhage or significant mass effect. Romario Kauffman MD Brain MRI 11/27/16 0000 Signed Impressions: Service Date/Time: Sunday, November 27, 2016 18:10 - CONCLUSION: 1. Moderate periventricular and subcortical white matter small vessel ischemic changes bilaterally. 2. 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 3. No acute infarct, acute hemorrhage, mass effect or extra-axial fluid collection. 4. Fluid level within sphenoid sinuses. 5. Fluid within the mastoid air cells bilaterally. Hasmukh Oakes MD Abdomen/Pelvis CT 11/23/16 0000 Signed Impressions: Service Date/Time: Wednesday, November 23, 2016 21:46 - CONCLUSION: 1. 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 2. Mild head pancreatitis possible in the proper clinical setting. Patient has recently had ERCP and bile duct stone extraction. 3. Bibasilar pneumonia developing. Tiny pleural effusion on the right. 4. Chronic findings otherwise. Giovani Martinez MD Abdomen Ultrasound 11/23/16 0000 Signed Impressions: Service Date/Time: Wednesday, November 23, 2016 19:33 - CONCLUSION: 1. Somewhat limited study. Proximal superior mesenteric artery appears patent. 2. Mildly elevated flow velocities in the celiac and hepatic arteries of doubtful clinical significance. Giovani Martinez MD GI Procedure 11/21/16 0000 Signed Impressions: Service Date/Time: Monday, November 21, 2016 10:44 - CONCLUSION: ERCP as above. Reymundo Wilburn MD FACR Chest CT 11/20/16 1407 Signed Impressions: Service Date/Time: Sunday, November 20, 2016 15:13 - CONCLUSION: 1. Severe underlying emphysema. 2. Status post median sternotomy with postsurgical changes. Maikol Paredes MD Objective Remarks GENERAL: 86 yo female, critically ill currently orotracheally intubated SKIN: Warm and dry. No rash HEAD: Normocephalic. EYES: No scleral icterus. No injection or drainage. 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 NECK: Supple, trachea midline. No JVD or lymphadenopathy. CARDIOVASCULAR: IRR. S1, S2 no S4 without murmur RESPIRATORY: Breath sounds equal bilaterally. No accessory muscle use. GASTROINTESTINAL: Abdomen soft, tenderness on palpation. EVELYN dressing in place , with abdominal binder covering MUSCULOSKELETAL: No significant peripheral edema. 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 MRI brain showed moderate small vessel disease, old bilateral basal ganglia CVA no acute findings. Ammonia level 35 11/[address] Roque - neurology Continue amitriptyline 10 mg at night Pulm: Acute hypoxemic respiratory failure ACV 15/500/5/40 Ventilator bundle Albuterol/Septra aerosols every 6 hours with albuterol aerosols every 2 hours as needed for dyspnea Continue with vent support and maintain sat >92% SBT daily as adelina. Mental status will not permit extubation CT chest 11/20: Severe underlying emphysema. Status post median sternotomy with postsurgical changes. Follow-up a.m. chest x-ray CV: Systolic heart failure - likely chronic Severe sepsis Atrial Fibrillation w/ RVR History of hypertension Severe pulmonary hypertension PAD history of bilateral CEA Monitor HR and BP keep MAP>65mmHg Currently on diltiazem drip at 15 mg an hour. Heart rate currently less than 100 Lactic acid 11/23: 0.9. Echo from 11/26 EF 40%, mild MR. Moderate AR/TR. Severe pulmonary HTN (PAP 70mmHg) On ASA 81 mg daily, Holding Procardia XL 60mg daily as cannot be crushed. Atorvastatin 80 mg daily held ( elevated LFT's) Currently on Cilostazol at 100 mg daily for claudication RENAL/: Acute kidney injury secondary to surgery Monitor renal function, I/O's, avoid nephrotoxins IVF D5 1/2NS@50ml/hr renal is following- Dr. 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 Gastroesophageal reflux disease Transaminitis Monitor LFT;s(trending down) Trickle feeds- Glucerna 1.5@10ml/hr per Dr. Polanco. Cecal Volvulus s/p Exp lap, right colectomy and cholecystectomy 11/24 s/p Colonoscopy 11/24 showed Diverticulosis in sigmoid colon, hemorrhoids CT abd/pelvis: Bowel gas pattern most compatible a cecal volvulus and does appear to be contributing to associated obstruction. Mild head pancreatitis possible in the proper clinical setting. Patient has recently had ERCP and bile duct stone extraction. Bibasilar pneumonia developing. Tiny pleural effusion on the righ US abdomen: Proximal superior mesenteric artery appears patent. ID: Continue with abx per ID (piperacillin/tazobactam) Monitor for signs of infections ( Fever, WBC) Pertinent cultures BC 11/24: NGTD . WBC is trending down. 26K today from 40K Heme: Leukocytosis Normocytic anemia Thrombocytopenia Monitor CBC Status post 2 units PRBCs 11/28. Endo: SSI with accuchecks GI prophylaxis- Pantoprazole 40mg IV daily DVT prophylaxis- Enoxaparin 30mg daily Lines: Right IJ placed in OR 11/24 Critical Care: The total critical care time was 30 minutes. Time to perform other separately billable procedures was not included in the critical care time. Jean Pierre Oh MD Nov 29, 2016 07:54
[2016-11-29] MEDS: RESP: ALBUTEROL 2.5 MG/IPRATROPIUM 0.5 MG NEB (SCH) NEB ×3 (09:28→20:25)
[2016-11-29] MEDS: DEXT 5%-NACL 0.45% 1000 ML INJ 1,000 ML IV SCH (09:35)
[2016-11-29] MEDS: ASPIRIN 81 MG CHEW TAB CHEW SCH (09:48)
[2016-11-29] MEDS: SODIUM CHLORIDE 0.9% FLUSH 10 ML FLUSH IV FLUSH SCH ×2 (09:48→20:47)
[2016-11-29] MEDS: CILOSTAZOL 100 MG TAB PO SCH ×2 (09:48→20:48)
[2016-11-29] MEDS: URSODIOL 300 MG CAP PO SCH ×2 (09:48→20:48)
[2016-11-29] MEDS: PANTOPRAZOLE SODIUM 40 MG VIAL IV PUSH SCH (09:48)
--- NOTE | 2016-11-29 11:16 | HHI.PR ---
Subjective Subjective Notes A fib with RVR overnight. Danica trickle tube feeds. Had one bowel movt. Objective Vitals/I&O Vital Signs Date Time Temp Pulse Resp B/P (MAP) Pulse Ox O2 Delivery O2 Flow Rate FiO2 11/29/16 08:03 93 40 11/29/16 06:00 120 11/29/16 04:00 98.8 18 94/50 (65) Labs Laboratory Tests Test 11/28/16 15:00 White Blood Count 30.5 Red Blood Count 3.48 Hemoglobin 9.5 Hematocrit 28.9 Mean Corpuscular Volume 83.0 Mean Corpuscular Hemoglobin 27.2 Mean Corpuscular Hemoglobin Concent 32.7 Red Cell Distribution Width 15.4 Platelet Count 76 Mean Platelet Volume 10.2 Date/Time Source Procedure Growth Status 11/24/16 02:42 Blood Peripheral Aerobic Blood Culture - Final NO GROWTH IN 5 DAYS Complete 11/24/16 02:42 Blood Peripheral Anaerobic Blood Culture - Final NO GROWTH IN 5 DAYS Complete Radiology Last Impressions Chest X-Ray 11/24/16 0000 Signed Impressions: Service Date/Time: Thursday, November 24, 2016 11:57 - CONCLUSION: 1. Interval placement of nasogastric catheter with tip beyond the GE junction omitted from the image. 2. Persistent diffuse coarse interstitial prominence likely reflecting interstitial edema/pneumonia superimposed on chronic interstitial changes. 3. Stable mild bibasilar airspace disease, likely atelectasis. Sam Buckner MD Abdomen/Pelvis CT 11/23/16 0000 Signed Impressions: Service Date/Time: Wednesday, November 23, 2016 21:46 - CONCLUSION: 1. 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 2. Mild head pancreatitis possible in the proper clinical setting. Patient has recently had ERCP and bile duct stone extraction. 3. Bibasilar pneumonia developing. Tiny pleural effusion on the right. 4. Chronic findings otherwise. Giovani Martinez MD Abdomen Ultrasound 11/23/16 0000 Signed Impressions: Service Date/Time: Wednesday, November 23, 2016 19:33 - CONCLUSION: 1. Somewhat limited study. Proximal superior mesenteric artery appears patent. 2. Mildly elevated flow velocities in the celiac and hepatic arteries of doubtful clinical significance. Giovani Martinez MD GI Procedure 11/21/16 0000 Signed Impressions: Service Date/Time: Monday, November 21, 2016 10:44 - CONCLUSION: ERCP as above. Reymundo Wilburn MD FACR Chest CT 11/20/16 1407 Signed Impressions: Service Date/Time: Sunday, November 20, 2016 15:13 - CONCLUSION: 1. Severe underlying emphysema. 2. Status post median sternotomy with postsurgical changes. Maikol Paredes MD Narrative Exam Ventilated Ventilated 40% 5PEEP Abd: soft, EVELYN dressing in place, NGT with enteral feeding at 10cc/h A/P Assessment and Plan 86 yo F POD 5 s/p ex lap right colectomy, cholecystectomy, for cecal volvulus and common duct stones. Remains critical. Increase feeds as danica to goal rate 45ml/h. Reglan 5mg Q8h. Will dc dressing on POD 7 Appreciate critical care. Bryant Polanco MD Nov 29, 2016 11:16
--- NOTE | 2016-11-29 11:44 | HHI.IDPN ---
Subjective Subjective Remarks s/p exp lap with R colectomy and cholecystectomy. on vent FiO2 40% afebrile off pressors had BMs tolerating tickles feeds MRI s/o acute findings Antibiotics zosyn Lines Line sites with no e.o infection Past Medical History reviewed Allergies: Coded Allergies: No Known Allergies (Unverified , 11/24/16) Objective . Vital Signs Date Time Temp Pulse Resp B/P (MAP) Pulse Ox O2 Delivery O2 Flow Rate FiO2 11/29/16 08:03 93 40 11/29/16 06:00 120 11/29/16 05:00 154 11/29/16 04:00 40 11/29/16 04:00 123 11/29/16 04:00 96 40 11/29/16 04:00 98.8 123 18 94/50 (65) 96 11/29/16 03:46 116 110/54 11/29/16 03:00 146 11/29/16 02:00 92 11/29/16 00:00 99.5 88 14 90/45 (60) 94 11/29/16 00:00 88 11/29/16 00:00 40 11/28/16 23:43 95 40 11/28/16 22:00 91 11/28/16 21:17 94 40 11/28/16 20:00 40 11/28/16 20:00 101 11/28/16 20:00 99.2 101 14 100/53 (69) 95 11/28/16 16:07 93 40 11/28/16 16:00 99.9 137 26 145/88 (107) 89 11/28/16 16:00 40 11/28/16 15:10 95 40 11/28/16 15:10 40 11/28/16 12:15 95 40 11/28/16 12:00 99.2 88 14 110/53 (72) 95 11/28/16 12:00 40 . Laboratory Tests Test 11/28/16 03:27 11/28/16 15:00 White Blood Count 26.6 TH/MM3 30.5 TH/MM3 Red Blood Count 2.39 MIL/MM3 3.48 MIL/MM3 Hemoglobin 6.5 GM/DL 9.5 GM/DL Hematocrit 19.8 % 28.9 % Mean Corpuscular Volume 82.8 FL 83.0 FL Mean Corpuscular Hemoglobin 27.1 PG 27.2 PG Mean Corpuscular Hemoglobin Concent 32.7 % 32.7 % Red Cell Distribution Width 16.0 % 15.4 % Platelet Count 81 TH/MM3 76 TH/MM3 Mean Platelet Volume 10.1 FL 10.2 FL Neutrophils (%) (Auto) 90.1 % Lymphocytes (%) (Auto) 4.9 % Monocytes (%) (Auto) 4.5 % Eosinophils (%) (Auto) 0.3 % Basophils (%) (Auto) 0.2 % Neutrophils # (Auto) 23.9 TH/MM3 Lymphocytes # (Auto) 1.3 TH/MM3 Monocytes # (Auto) 1.2 TH/MM3 Eosinophils # (Auto) 0.1 TH/MM3 Basophils # (Auto) 0.1 TH/MM3 CBC Comment AUTO DIFF Differential Comment AUTO DIFF CONFIRMED Platelet Estimate LOW Platelet Morphology Comment NORMAL Ovalocytes 1+ Acanthocytes 1+ Laboratory Tests Test 11/27/16 12:15 11/28/16 03:27 Ammonia 35 MCMOL/L Blood Urea Nitrogen 37 MG/DL Creatinine 1.26 MG/DL Random Glucose 93 MG/DL Total Protein 5.3 GM/DL Albumin 1.4 GM/DL Calcium Level 7.6 MG/DL Alkaline Phosphatase 119 U/L Aspartate Amino Transf (AST/SGOT) 51 U/L Alanine Aminotransferase (ALT/SGPT) 43 U/L Total Bilirubin 0.5 MG/DL Sodium Level 148 MEQ/L Potassium Level 3.7 MEQ/L Chloride Level 118 MEQ/L Carbon Dioxide Level 22.6 MEQ/L Anion Gap 7 MEQ/L Estimat Glomerular Filtration Rate 40 ML/MIN Imaging Last Impressions Chest X-Ray 11/28/16 0600 Signed Impressions: Service Date/Time: Monday, November 28, 2016 03:04 - CONCLUSION: Worsening bilateral pulmonary infiltrates and small effusions. Shant Dyer Jr., MD Head CT 11/27/16 0000 Signed Impressions: Service Date/Time: Sunday, November 27, 2016 14:47 - CONCLUSION: 1. Questionable edema or subacute infarct in the left parietal deep white matter. This would be better evaluated with MRI. No intracranial hemorrhage or significant mass effect. Romario Kauffman MD Brain MRI 11/27/16 0000 Signed Impressions: Service Date/Time: Sunday, November 27, 2016 18:10 - CONCLUSION: 1. Moderate periventricular and subcortical white matter small vessel ischemic changes bilaterally. 2. 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 3. No acute infarct, acute hemorrhage, mass effect or extra-axial fluid collection. 4. Fluid level within sphenoid sinuses. 5. Fluid within the mastoid air cells bilaterally. Hasmukh Oakes MD Abdomen/Pelvis CT 11/23/16 0000 Signed Impressions: Service Date/Time: Wednesday, November 23, 2016 21:46 - CONCLUSION: 1. 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 2. Mild head pancreatitis possible in the proper clinical setting. Patient has recently had ERCP and bile duct stone extraction. 3. Bibasilar pneumonia developing. Tiny pleural effusion on the right. 4. Chronic findings otherwise. Giovani Martinez MD Abdomen Ultrasound 11/23/16 0000 Signed Impressions: Service Date/Time: Wednesday, November 23, 2016 19:33 - CONCLUSION: 1. Somewhat limited study. Proximal superior mesenteric artery appears patent. 2. Mildly elevated flow velocities in the celiac and hepatic arteries of doubtful clinical significance. Giovani Martinez MD GI Procedure 11/21/16 0000 Signed Impressions: Service Date/Time: Monday, November 21, 2016 10:44 - CONCLUSION: ERCP as above. Reymundo Wilburn MD FACR Chest CT 11/20/16 1407 Signed Impressions: Service Date/Time: Sunday, November 20, 2016 15:13 - CONCLUSION: 1. Severe underlying emphysema. 2. Status post median sternotomy with postsurgical changes. Maikol Paredes MD Physical Exam CONSTITUTIONAL/GENERAL: This is an adequately nourished patient, in no apparent distress. sedated int'd on vent TUBES/LINES/DRAINS: SKIN: No jaundice, rashes, or lesions. Skin temperature appropriate. Not diaphoretic. EYES: Pupils equal and round and reactive. Fundi not examined. CARDIOVASCULAR: Regular rate and rhythm + 2/6 systolic murmur, no gallops, or rubs. No JVD. Peripheral pulses symmetric. Well perfused perifery RESPIRATORY/CHEST: Symmetric, unlabored respirations. Rhonchi to auscultation. Breath sounds equal bilaterally. No wheezes, rales, or rhonchi. GASTROINTESTINAL: Abdomen post op with dressing in place Bowel sounds + hypoactive GENITOURINARY: Without palpable bladder distension. Sanchez catheter in place with small amount of dark yellow urine MUSCULOSKELETAL: Extremities without clubbing, cyanosis, + 2-3 + edema. NEUROLOGICAL: seadted PSYCHIATRIC: unable to assess Assessment & Plan Remarks Volvulus sp colon resection and cholecystectomy path benign:cecum volvulus and chronic calculous cholecstitis Sepsis from intraabdominal source (leukocytosis, leukemoid reaction, hypoxia, JOSUE) leukocytosis, leukemoid reaction: even worse today persistent severe leukocytosis Pt and her and othe rfamily members deny that pt ever had problems with PCN. Pt states she was given PCN many years ago and it was uneventful Gallstones sp ERCP 2 yrs ago ARF: improving Rec: fu WBC cont zosyn; adjust per GFR will add diflucan rechk blood clx if no clinical improvem,enmt, worsening of WBC will rescan Sharon Guerra RN, MD Nov 29, 2016 11:44
[2016-11-29] MEDS: ARTIFICIAL TEARS OPTH SOLN 15 ML BTL LEFT EYE SCH ×2 (13:37→20:50)
[2016-11-29] MEDS: FLUCONAZOLE 400 MG PREMIX BAG 200 ML IV SCH (13:37)
[2016-11-29] MEDS: METOCLOPRAMIDE HCL 10 MG/2 ML VIAL IV PUSH SCH ×2 (13:37→20:48)
[2016-11-29 14:18] LABS: HEMATOCRIT 26.2 % (35.0-46.0); MEAN CELL VOLUME 83.5 FL (80.0-100.0); MEAN CORPUSCULAR HEMOGLOBIN 27.3 PG (27.0-34.0); MEAN CORPUSCULAR HGB CONC 32.7 % (32.0-36.0); PLATELET COUNT 73 TH/MM3 (150-450); RED BLOOD COUNT 3.14 MIL/MM3 (4.00-5.30); RED CELL DISTRIBUTION WIDTH 15.8 % (11.6-17.2); WHITE BLOOD COUNT 27.1 TH/MM3 (4.0-11.0)
[2016-11-29 14:21] LABS: REVIEW FLAG FINAL
[2016-11-29] MEDS: fentaNYL DRIP 250 ML IV PRN (14:26)
[2016-11-29 14:38] LABS: BICARBONATE 21.2 MEQ/L (21.0-32.0); MAGNESIUM 1.9 MG/DL (1.5-2.5); POTASSIUM 3.4 MEQ/L (3.5-5.1)
--- NOTE | 2016-11-29 15:27 | EKG ---
Date Performed: 11/29/2016 Time Performed: 08:07:32 PTAGE: 86 years EKG: ATRIAL FLUTTER/TACHYCARDIA LOW QRS VOLTAGE IN EXTREMITY LEADS ST DEVIATION AND MODERATE T-W AVE ABNORMALITY, CONSIDER LATERAL ISCHEMIA ABNORMAL ECG PREVIOUS TRACING : 11/20/2016 21.39 Compared to the previous tracing, appears now in aflutter DOCTOR: Benitez Guardado Interpretating Date/Time 11/29/2016 15:25:14
[2016-11-29] MEDS: ENOXAPARIN SODIUM 30 MG/0.3 ML SYRINGE SQ SCH (16:14)
[2016-11-29] MEDS: DILTIAZEM HCL 30 MG TAB PO SCH (17:04)
--- NOTE | 2016-11-29 18:18 | HHI.NPPN ---
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 Patient also underwent repeat ERCP for obstructed bile duct November 21, 2016. Patient noted to have had a serum creatinine level 0.8 15 September 2016. On presentation creatinine level at this institution 1.59 and has now deteriorated to 2.01. Patient in the ICU with development of respiratory insufficiency and worsening leukocytosis. Patient unable to provide any history secondary to her clinical condition. Interval History Remains intubated (Kait Loyola) Review of Systems General General Remarks Unable to obtain 2/2 to clinical condition (Kait Loyola) Objective Data Data 11/29/16 11/30/16 19:00 07:00 Intake Total 670 ml Output Total 475 ml Balance 195 ml Tube Feeding 170 ml Other 500 ml Output Urine Total 475 ml # Bowel Movements 0 Vital Signs Date Time Temp Pulse Resp B/P (MAP) Pulse Ox O2 Delivery O2 Flow Rate FiO2 11/29/16 18:00 74 11/29/16 16:25 92 40 11/29/16 16:00 40 11/29/16 16:00 98.1 80 23 110/54 (72) 95 11/29/16 16:00 80 11/29/16 14:00 82 11/29/16 12:35 82 115/57 11/29/16 12:34 94 40 11/29/16 12:00 40 11/29/16 12:00 97.4 82 15 102/50 (67) 93 11/29/16 12:00 82 11/29/16 10:00 89 11/29/16 08:03 93 40 11/29/16 08:00 40 11/29/16 08:00 99 11/29/16 08:00 97.9 99 14 91/50 (64) 92 11/29/16 06:00 120 11/29/16 05:00 154 11/29/16 04:00 40 11/29/16 04:00 123 11/29/16 04:00 96 40 11/29/16 04:00 98.8 123 18 94/50 (65) 96 11/29/16 03:46 116 110/54 11/29/16 03:00 146 11/29/16 02:00 92 11/29/16 00:00 99.5 88 14 90/45 (60) 94 11/29/16 00:00 88 11/29/16 00:00 40 11/28/16 23:43 95 40 11/28/16 22:00 91 11/28/16 21:17 94 40 11/28/16 20:00 40 11/28/16 20:00 101 11/28/16 20:00 99.2 101 14 100/53 (69) 95 (Kait Loyola) -: 11/29/16 1347 11/29/16 1347 Imaging Last Impressions Chest X-Ray 11/28/16 0600 Signed Impressions: Service Date/Time: Monday, November 28, 2016 03:04 - CONCLUSION: Worsening bilateral pulmonary infiltrates and small effusions. Shant Deyr Jr., MD Head CT 11/27/16 0000 Signed Impressions: Service Date/Time: Sunday, November 27, 2016 14:47 - CONCLUSION: 1. Questionable edema or subacute infarct in the left parietal deep white matter. This would be better evaluated with MRI. No intracranial hemorrhage or significant mass effect. Romario Kauffman MD Brain MRI 11/27/16 0000 Signed Impressions: Service Date/Time: Sunday, November 27, 2016 18:10 - CONCLUSION: 1. Moderate periventricular and subcortical white matter small vessel ischemic changes bilaterally. 2. 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 3. No acute infarct, acute hemorrhage, mass effect or extra-axial fluid collection. 4. Fluid level within sphenoid sinuses. 5. Fluid within the mastoid air cells bilaterally. Hasmukh Oakes MD Abdomen/Pelvis CT 11/23/16 0000 Signed Impressions: Service Date/Time: Wednesday, November 23, 2016 21:46 - CONCLUSION: 1. 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 2. Mild head pancreatitis possible in the proper clinical setting. Patient has recently had ERCP and bile duct stone extraction. 3. Bibasilar pneumonia developing. Tiny pleural effusion on the right. 4. Chronic findings otherwise. Giovani Martinez MD Abdomen Ultrasound 11/23/16 0000 Signed Impressions: Service Date/Time: Wednesday, November 23, 2016 19:33 - CONCLUSION: 1. Somewhat limited study. Proximal superior mesenteric artery appears patent. 2. Mildly elevated flow velocities in the celiac and hepatic arteries of doubtful clinical significance. Giovani Martinez MD GI Procedure 11/21/16 0000 Signed Impressions: Service Date/Time: Monday, November 21, 2016 10:44 - CONCLUSION: ERCP as above. Reymundo Wilburn MD FACR Chest CT 11/20/16 1407 Signed Impressions: Service Date/Time: Sunday, November 20, 2016 15:13 - CONCLUSION: 1. Severe underlying emphysema. 2. Status post median sternotomy with postsurgical changes. Maikol Paredes MD Medication Review Current Medications Medications (Trade) Dose Ordered Sig/Jazzmine Route Start Time Stop Time Status Last Admin (NS Flush) 2 ml BID IV FLUSH 11/20/16 21:00 11/29/16 09:48 (Zofran Inj) 4 mg Q6H PRN IVP 11/20/16 16:15 (Restoril) 15 mg HS PRN PO 11/20/16 16:15 11/23/16 23:20 (Lovenox Inj) 30 mg Q24H SQ 11/20/16 16:15 Future hold 11/29/16 16:14 (Narcan Inj) 0.4 mg UNSCH PRN IV 11/20/16 16:15 (Milk Of Magnesia Liq) 30 ml Q12H PRN PO 11/20/16 16:15 (Elavil) 10 mg HS PO 11/20/16 21:00 11/28/16 20:34 (Aspirin Chew) 81 mg DAILY CHEW 11/21/16 09:00 11/29/16 09:48 (Lipitor) 80 mg HS PO 11/20/16 21:00 Future Hold 11/23/16 20:42 (Pletal) 100 mg BID PO 11/20/16 21:00 11/29/16 09:48 (Dilaudid Pf Inj) 0.5 mg Q4H PRN IV PUSH 11/21/16 14:45 11/25/16 04:11 (Actigall) 300 mg Q12HR PO 11/22/16 21:00 11/29/16 09:48 (Protonix Inj) 40 mg DAILY IV PUSH 11/24/16 12:00 11/29/16 09:48 (D50w (Vial) Inj) 50 ml UNSCH PRN IV 11/24/16 12:15 (Glucagon Inj) 1 mg UNSCH PRN OTHER 11/24/16 12:15 (NovoLIN R SUPPLEMENTAL SCALE) 1 Q4H SQ 11/24/16 12:15 11/26/16 04:12 Diltiazem HCl 125 mg/Sodium Chloride 125 ml @ 5 mls/hr TITRATE PRN IV 11/25/16 03:15 11/29/16 12:35 Propofol 100 ml @ 1.89 mls/hr TITRATE PRN IV 11/25/16 07:30 11/29/16 14:25 Piperacillin Sod/ Tazobactam Sod 50 ml @ 100 mls/hr Q6H IV 11/25/16 09:00 11/29/16 16:14 Fentanyl Citrate 250 ml @ 5 mls/hr TITRATE PRN IV 11/25/16 16:15 11/29/16 14:26 Dextrose/Sodium Chloride 1,000 ml @ 50 mls/hr Q20H IV 11/27/16 10:00 11/29/16 09:35 (Free Water) 250 ml Q6HR G-TUBE 11/29/16 12:00 11/29/16 17:04 (Tylenol 650 Mg/ 20 ml Liq) 650 mg Q6H PRN OG-TUBE 11/29/16 08:30 (Duoneb Neb) 1 ampule Q6HR NEB NEB 11/29/16 10:00 11/29/16 14:38 (Albuterol Neb) 2.5 mg Q2HR NEB PRN NEB 11/29/16 08:30 (Tears Naturale Opth Soln) 1 drop Q8HR LEFT EYE 11/29/16 14:00 11/29/16 13:37 (Reglan Inj) 5 mg Q8HR IV PUSH 11/29/16 14:00 11/29/16 13:37 Fluconazole/ Sodium Chloride 200 ml @ 100 mls/hr Q24H IV 11/29/16 13:00 11/29/16 13:37 (Cardizem) 30 mg Q6HR PO 11/29/16 18:00 11/29/16 17:04 (Kait Loyola) Physical Exam General Appearance: No Acute Distress (Kait Loyola) Eyes Eye Remarks Prosthetic R eye (Kait Loyola) Neck Neck Exam: Trachea Midline (Kait Loyola) Pulmonary Resp Exam: Clear Bilaterally, Breath Sounds Equal (Kait Loyola) Cardiology CV Exam: Normal Sinus Rhythm, Irregular, Murmur CV Remarks LUSB (Kait Loyola) Extremeties Extremities Exam: Moderate Edema (1-2+ pitting BUE and BLE) (Kait Loyola) Neurologic Neuro Exam: Unresponsive (Kait Loyola) Assessment/Plan Problem List: (1) JOSUE (acute kidney injury) ICD Codes: N17.9 - JOSUE (acute kidney injury) Status: Acute Plan: I believe that the patient has established acute kidney injury secondary to abdominal surgery Patient's creatinine level is improved again today and a urine output is fairly good. Na level improved. Replete KCl Medications should be adjusted for the patient's estimated GFR if clinically indicated. Avoid agents with significant potential for nephrotoxicity possible including NSAIDs for analgesia, iodine contrast agents. Gadolinium is contraindicated if the GFR is below 30. Permanent Comment: Secondary to sepsis. Last Edited By: Radha Ferrari on Nov 26, 2016 11:19 (2) Sepsis ICD Codes: A41.9 - Sepsis, unspecified organism Plan: Management per infectious disease. Permanent Comment: Patient status post right colectomy for volvulus as well as ERCP obstructed bile duct November 21, 2016. Last Edited By: Radha Ferrari on Nov 26, 2016 11:20 (3) Hypernatremia ICD Codes: E87.0 - Hyperosmolality and hypernatremia Status: Resolved Plan: Improved with D5 and free water (4) Hypertension ICD Codes: I10 - Hypertension Status: Chronic (Kait Loyola) Plan The exam, history, and the medical decision-making described in the above note were completed with the assistance of the PAPepper. I reviewed and agree with the findings presented. I attest that I had a [id number] encounter with the patient on the same day, and personally performed and documented my assessment and findings in the medical record. (Kesha Ferrari MD) Problem Qualifiers (1) Hypertension: Qualified Codes: I10 - Essential (primary) hypertension Kait Loyola Nov 29, 2016 18:18 Kesha Ferrari MD Dec 01, 2016 17:12
[2016-11-29] MEDS ORDERED: POTASSIUM CHLOR 20 MEQ PREMIX 100 ML IV ONE (18:30)
--- NOTE | 2016-11-29 19:13 | MG ---
cc: ELISE DONOVAN MD Lab No: Date: 11/29/16 Age: 86 Sex: F Race: REFERRING PHYSICIAN An EEG was obtained on this 86-year-old patient intubated, sedated on fentanyl and Diprivan. The patient has history of chest pain and encephalopathy, confusion. The EEG is showing a lot of theta with delta rhythms. There is low amplitude beta activity and there is a lack of alpha rhythms. The findings are most consistent with sedation and sleep. There are no paroxysmal discharges. Photic stimulation was unremarkable. INTERPRETATION Abnormal EEG because of diffuse/bilateral slowing consistent with either a moderately severe diffuse disturbance of cerebral function or bihemispheric structural abnormalities. No epileptiform features are present. Elise Donovan MD [facility] /6:37 PM /7:00 PM
[2016-11-29] MEDS: AMITRIPTYLINE HCL 10 MG TAB PO SCH (20:48)
[2016-11-30] VITALS (19 sets, daily range): BP systolic 92–116; BP diastolic 50–59; PULSE 79–144; RESP 15–18; TEMP 97.9–101.7; O2SAT 92–100
[2016-11-30] MEDS: INSULIN NovoLIN REGULAR SUPPLEMENTAL SCALE SQ SCH ×6 (00:11→19:47)
[2016-11-30] MEDS: DILTIAZEM HCL 30 MG TAB PO SCH ×4 (00:11→17:28)
[2016-11-30] MEDS: DEXT 5%-NACL 0.45% 1000 ML INJ 1,000 ML IV SCH (00:12)
[2016-11-30] MEDS: PROPOFOL 1000 MG/100 ML INJ 100 ML IV PRN ×2 (02:51→16:17)
[2016-11-30] MEDS: PIPERACIL-TAZO 2.25 GM PREMIX 50 ML IV SCH ×4 (03:04→20:15)
[2016-11-30] MEDS: RESP: ALBUTEROL 2.5 MG/IPRATROPIUM 0.5 MG NEB (SCH) NEB ×4 (03:10→20:35)
[2016-11-30 05:10] LABS: ANION GAP 6 MEQ/L (5-15); AST (GOT) 37 U/L (15-37); BICARBONATE 23.6 MEQ/L (21.0-32.0); BLOOD UREA NITROGEN 27 MG/DL (7-18); CHLORIDE 113 MEQ/L (98-107); GLOMERULAR FILTRATION RATE 54 ML/MIN (>89); MAGNESIUM 1.7 MG/DL (1.5-2.5); POTASSIUM 3.5 MEQ/L (3.5-5.1); SODIUM (NA) 143 MEQ/L (136-145)
[2016-11-30 05:11] LABS: ALT (GPT) 28 U/L (10-53)
[2016-11-30 05:12] LABS: AUTOMATED NEUTROPHIL # 20.1 TH/MM3 (1.8-7.7); BASOPHIL % 0.2 % (0.0-2.0); EOSINOPHIL # 0.1 TH/MM3 (0-0.4); EOSINOPHIL % 0.3 % (0.0-4.0); HEMATOCRIT 22.7 % (35.0-46.0); LYMPHOCYTE # 1.1 TH/MM3 (1.0-4.8); MEAN CELL VOLUME 84.2 FL (80.0-100.0); MEAN CORPUSCULAR HEMOGLOBIN 27.9 PG (27.0-34.0); MEAN CORPUSCULAR HGB CONC 33.1 % (32.0-36.0); MONO % 5.1 % (0.0-8.0); NEUT % 89.4 % (16.0-70.0); PLATELET COUNT 72 TH/MM3 (150-450); RED BLOOD COUNT 2.69 MIL/MM3 (4.00-5.30); RED CELL DISTRIBUTION WIDTH 16.2 % (11.6-17.2); WHITE BLOOD COUNT 22.5 TH/MM3 (4.0-11.0)
[2016-11-30 05:13] LABS: ALKALINE PHOSPHATASE 115 U/L (45-117); CREATINE KINASE 446 U/L (26-192); TOTAL BILIRUBIN ADULT 0.6 MG/DL (0.2-1.0)
[2016-11-30 05:14] LABS: HEMO FLAGS AUTO DIFF
[2016-11-30] MEDS: ARTIFICIAL TEARS OPTH SOLN 15 ML BTL LEFT EYE SCH ×3 (05:25→21:29)
[2016-11-30] MEDS: FREE WATER G-TUBE SCH ×4 (05:25→20:16)
[2016-11-30] MEDS: METOCLOPRAMIDE HCL 10 MG/2 ML VIAL IV PUSH SCH ×3 (05:25→21:28)
[2016-11-30 07:06] LABS: ACANTHOCYTES 1+ (NORMAL); BANDS 7 % (0-6); KERATOCYTES 1+ (NORMAL); NEUTROPHIL # MANUAL DIFF 18.9 TH/MM3 (1.8-7.7); PLATELET ESTIMATE SMEAR LOW (NORMAL); PLATELET MORPHOLOGY NORMAL (NORMAL); POLYS (SEG NEUTROPHILS) 77 % (16-70); WBC DIFF SAMPLE 100
[2016-11-30 07:07] LABS: SCAN/DIFF FINAL DIFF MANUAL
--- NOTE | 2016-11-30 07:17 | RADRPT ---
EXAM DATE/TIME: 11/30/2016 05:00 [facility] COMPARISON: CHEST SINGLE AP, November 28, 2016, 3:04. INDICATIONS : Respiratory failure. MEDICAL HISTORY : Hypertension. Cardiovascular disease. CVA. SURGICAL HISTORY : CABG. ENCOUNTER: Subsequent ACUITY: 2 weeks PAIN SCORE: Non-responsive. LOCATION: Bilateral chest FINDINGS: ET tube tip below above the kashif. Right internal jugular catheter tip projects over the distal sup erior vena cava. Gastric tube traverses the [id number]. Persistent consolidation in the medial l eft lower lung and patchy areas of consolidation in the lower lateral right lung with loss of delinea tion of portions of both hemidiaphragms, similar to prior. No evidence of pneumothorax. CONCLUSION: Persistent lower lung infiltrates. Shant Robertson MD on November 30, 2016 at 7:15 Board Certified Radiologist. This report was verified electronically.
[2016-11-30] MEDS ORDERED: MAGNESIUM SULFATE INJ 4 GM in SODIUM CHLORIDE 0.9% INJ 92 ML IV PRN (07:30)
[2016-11-30] MEDS ORDERED: POTASSIUM PHOSPHATE INJ 30 MMOL in SODIUM CHLOR 0.9% 250 ML INJ 250 ML IV PRN (07:30)
[2016-11-30] MEDS ORDERED: MAGNESIUM OXIDE 400 MG TAB PO PRN (07:30)
[2016-11-30] MEDS ORDERED: SODIUM PHOSPHATE INJ 30 MMOL in SODIUM CHLOR 0.9% 250 ML INJ 240 ML IV PRN (07:30)
[2016-11-30] MEDS ORDERED: POTASSIUM PHOSPHATE MONOBASIC 500 MG TAB PO PRN (07:30)
[2016-11-30] MEDS ORDERED: POTASSIUM CHLORIDE 20 MEQ PWD PACKET OG-TUBE ONE (07:30)
[2016-11-30] MEDS ORDERED: POTASSIUM PHOSPHATE MONOBASIC 500 MG TAB PO/TUBE PRN (07:30)
[2016-11-30] MEDS ORDERED: MAGNESIUM SULFATE INJ 2 GM in SODIUM CHLORIDE 0.9% INJ 96 ML IV PRN (07:30)
[2016-11-30] MEDS ORDERED: POTASSIUM PHOSPHATE/SODIUM PHOSPHATE 250 MG TAB ONE (07:30)
[2016-11-30] MEDS ORDERED: POTASSIUM CHLORIDE 25 MEQ EFFERVESCENT TAB PO PRN (07:30)
--- NOTE | 2016-11-30 07:41 | HHI.CCPN ---
Subjective Remarks/Hospital Course 86 y/o woman developed worsening SOB this afternoon associated with marked leukocytosis. Recent biliary instrumentation for obstruction 48 hours ago and probable sepsis. On appropriate antibiotics. Requiring NRBM now for oxygenation to 97%. Visibly labored breathing. CXR with interstitial edema. EF 35% 2014. Move to ICU. 11/24: Patient s/p colonoscopy this morning which showed mod. diverticulosis in sigmoid colon and hemorrhoids. Remains on NRB with good sats. Afebrile. Cr increased 1.51 from 1.08. 11/25 Patient s/p Ex lap, right colectomy and cholecystectomy. She kept intubated postop went into Afib with RVR overnight and placed on Cardizem drip 10mg/hr. 11/26 Patient is sedated with Diprivan, fentanyl and intubated. Afebrile. On Cardizem drip 5mg/hr. renal function worse with Cr: 2.01 from 1.89, UOP: 1L in 24 hrs 11/27 Patient remains sedated and intubated. Off Cardizem drip. Renal function is improving with Cr: 1.67 from 2.01. Afebrile. 11/28 remains intubated sedated. Heart rate controlled. Creat 1.26. Hb 6.5. Status post 2 units PRBC today. WBC count decreased from 40,000-26,000. Creat improving 1.26 11/29: Patient A. fib with RVR currently on diltiazem drip at 15 mg an hour for rate control. Hemodynamically stable. Subjective 11/30: Heart rate better controlled today. Diltiazem drip discontinued overnight. Heart rate currently in the 70s. Tolerated PSV trials yesterday. We'll attempt extubation today if tolerates. No bowel movement. Tolerating tube feeds at 30 cc an hour Objective Vital Signs Date Time Temp Pulse Resp B/P (MAP) Pulse Ox O2 Delivery O2 Flow Rate FiO2 11/30/16 06:00 89 11/30/16 04:07 98 40 11/30/16 04:00 98.8 15 103/52 (69) Intake and Output 11/30/16 11/30/16 12/01/16 08:00 16:00 00:00 Intake Total 1411 ml Output Total 500 ml Balance 911 ml Result Diagram: 11/30/16 0435 11/30/16 0435 Other Results Microbiology Date/Time Source Procedure Growth Status 11/29/16 14:55 Blood Peripheral Aerobic Blood Culture Pending Received 11/29/16 14:55 Blood Peripheral Anaerobic Blood Culture Pending Received Imaging Last Impressions Chest X-Ray 11/30/16 0600 Signed Impressions: Service Date/Time: Wednesday, November 30, 2016 05:00 - CONCLUSION: Persistent lower lung infiltrates. Shant Robertson MD Head CT 11/27/16 0000 Signed Impressions: Service Date/Time: Sunday, November 27, 2016 14:47 - CONCLUSION: 1. Questionable edema or subacute infarct in the left parietal deep white matter. This would be better evaluated with MRI. No intracranial hemorrhage or significant mass effect. Romario Kauffman MD Brain MRI 11/27/16 0000 Signed Impressions: Service Date/Time: Sunday, November 27, 2016 18:10 - CONCLUSION: 1. Moderate periventricular and subcortical white matter small vessel ischemic changes bilaterally. 2. 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 3. No acute infarct, acute hemorrhage, mass effect or extra-axial fluid collection. 4. Fluid level within sphenoid sinuses. 5. Fluid within the mastoid air cells bilaterally. Hasmukh Oakes MD Abdomen/Pelvis CT 11/23/16 0000 Signed Impressions: Service Date/Time: Wednesday, November 23, 2016 21:46 - CONCLUSION: 1. 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 2. Mild head pancreatitis possible in the proper clinical setting. Patient has recently had ERCP and bile duct stone extraction. 3. Bibasilar pneumonia developing. Tiny pleural effusion on the right. 4. Chronic findings otherwise. Giovani Martinez MD Abdomen Ultrasound 11/23/16 0000 Signed Impressions: Service Date/Time: Wednesday, November 23, 2016 19:33 - CONCLUSION: 1. Somewhat limited study. Proximal superior mesenteric artery appears patent. 2. Mildly elevated flow velocities in the celiac and hepatic arteries of doubtful clinical significance. Giovani Martinez MD GI Procedure 11/21/16 0000 Signed Impressions: Service Date/Time: Monday, November 21, 2016 10:44 - CONCLUSION: ERCP as above. Reymundo Wilburn MD FACR Chest CT 11/20/16 1407 Signed Impressions: Service Date/Time: Sunday, November 20, 2016 15:13 - CONCLUSION: 1. Severe underlying emphysema. 2. Status post median sternotomy with postsurgical changes. Maikol Paredes MD Objective Remarks GENERAL: 86 yo female, critically ill currently orotracheally intubated SKIN: Warm and dry. No rash HEAD: Normocephalic. EYES: No scleral icterus. No injection or drainage. 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 NECK: Supple, trachea midline. No JVD or lymphadenopathy. CARDIOVASCULAR: IRR. S1, S2 no S4 without murmur RESPIRATORY: Breath sounds equal bilaterally. No accessory muscle use. GASTROINTESTINAL: Abdomen soft, tenderness on palpation. EVELYN dressing in place , with abdominal binder covering MUSCULOSKELETAL: No significant peripheral edema. 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 MRI brain showed moderate small vessel disease, old bilateral basal ganglia CVA no acute findings. Ammonia level 35 11/[address] Roque - neurology Continue amitriptyline 10 mg at night Pulm: Acute hypoxemic respiratory failure ACV 15/500/5/40 Ventilator bundle Albuterol/ipratropium aerosols every 6 hours with albuterol aerosols every 2 hours as needed for dyspnea Continue with vent support and maintain sat >92% SBT daily as adelina. Mental status will not permit extubation at the present time Tolerated PSV trials [address] chest 11/20: Severe underlying emphysema. Status post median sternotomy with postsurgical changes. Follow-up a.m. chest x-ray 11/30 revealed persistent bilateral lower lobe infiltrates CV: Systolic heart failure - likely chronic Severe sepsis Atrial Fibrillation w/ RVR History of hypertension Severe pulmonary hypertension PAD history of bilateral CEA Monitor HR and BP keep MAP>65mmHg Diltiazem drip discontinued. Currently on Cardizem 30 mg every 6 hours Lactic acid 11/23: 0.9. Echo from 11/26 EF 40%, mild MR. Moderate AR/TR. Severe pulmonary HTN (PAP 70mmHg) On ASA 81 mg daily, Holding Procardia XL 60mg daily as cannot be crushed. Atorvastatin 80 mg daily held ( elevated LFT's) Currently on Cilostazol at 100 mg daily for claudication RENAL/: Acute kidney injury secondary to surgery Hypokalemia Hypophosphatemia Monitor renal function, I/O's, avoid nephrotoxins IVF D5 1/2NS@50ml/hr to be discontinued today renal is following- Dr. Ferrari Free water 200ml Q8, monitor sodium level 2 g mag sulfate, 1 g Neutra-Phos, 40 mg KCl powder by tube 1 now. Recheck labs in a.m. ICU electrolyte protocol initiated GI: Cecal Volvulus s/p Exp lap, right colectomy and cholecystectomy 11/24 S/P biliary manipulation ERCP for obstructed duct with stones and sludge 11/21. Gastroesophageal reflux disease Transaminitis Hyperammonia Constipation Monitor LFT;s(trending down) Trickle feeds- Glucerna 1.5@30ml/hr per Dr. Polanco. Goal rate now 45 cc an hour Cecal Volvulus s/p Exp lap, right colectomy and cholecystectomy 11/24 s/p Colonoscopy 11/24 showed Diverticulosis in sigmoid colon, hemorrhoids CT abd/pelvis: Bowel gas pattern most compatible a cecal volvulus and does appear to be contributing to associated obstruction. Mild head pancreatitis possible in the proper clinical setting. Patient has recently had ERCP and bile duct stone extraction. Bibasilar pneumonia developing. Tiny pleural effusion on the righ US abdomen: Proximal superior mesenteric artery appears patent. Initiate Xifaxan 40 mg by tube every 8 hours and lactulose 30 cc twice a day. Recheck ammonia level in AM. ID: Continue with abx per ID (piperacillin/tazobactam/Diflucan) Monitor for signs of infections ( Fever, WBC) Pertinent cultures BC 11/24: NGTD . Blood cultures 11/29 - pending WBC is trending down. Currently 22,000 Heme: Leukocytosis Normocytic anemia Thrombocytopenia Monitor CBC Status post 2 units PRBCs 11/28. Hemoccult stool today Endo: SSI with accuchecks GI prophylaxis- Pantoprazole 40mg IV daily DVT prophylaxis- Enoxaparin 30mg daily Lines: Right IJ placed in OR 11/24 Critical Care: The total critical care time was 30 minutes. Time to perform other separately billable procedures was not included in the critical care time. Jean Pierre Oh MD Nov 30, 2016 07:41
[2016-11-30] MEDS: SODIUM CHLORIDE 0.9% FLUSH 10 ML FLUSH IV FLUSH SCH ×2 (09:00→20:15)
[2016-11-30] MEDS: MAGNESIUM SULFATE 1 GM PREMIX 100 ML IV SCH ×2 (09:20→10:36)
[2016-11-30] MEDS: PANTOPRAZOLE SODIUM 40 MG VIAL IV PUSH SCH (09:21)
[2016-11-30] MEDS: LACTULOSE SYRUP 20 GM/30 ML CUP NG SCH ×2 (09:21→20:16)
[2016-11-30] MEDS: CILOSTAZOL 100 MG TAB PO SCH ×2 (09:21→20:16)
[2016-11-30] MEDS: MAGNESIUM OXIDE 400 MG TAB PO SCH (09:22)
[2016-11-30] MEDS: URSODIOL 300 MG CAP PO SCH ×2 (09:22→20:16)
[2016-11-30] MEDS: ASPIRIN 81 MG CHEW TAB CHEW SCH (09:22)
--- NOTE | 2016-11-30 10:54 | HHI.PR ---
Subjective Subjective Notes She is tolerating enteral feeding at 30cc/h. Possible extubation attempt today. Objective Vitals/I&O Vital Signs Date Time Temp Pulse Resp B/P (MAP) Pulse Ox O2 Delivery O2 Flow Rate FiO2 11/30/16 08:53 96 40 11/30/16 06:00 89 11/30/16 04:00 98.8 15 103/52 (69) Labs Laboratory Tests Test 11/29/16 13:47 11/30/16 04:35 White Blood Count 27.1 22.5 Red Blood Count 3.14 2.69 Hemoglobin 8.6 7.5 Hematocrit 26.2 22.7 Mean Corpuscular Volume 83.5 84.2 Mean Corpuscular Hemoglobin 27.3 27.9 Mean Corpuscular Hemoglobin Concent 32.7 33.1 Red Cell Distribution Width 15.8 16.2 Platelet Count 73 72 Mean Platelet Volume 11.2 11.3 Blood Urea Nitrogen 27 27 Creatinine 1.13 0.98 Random Glucose 132 115 Calcium Level 7.9 7.5 Phosphorus Level 2.2 2.0 Magnesium Level 1.9 1.7 Sodium Level 143 143 Potassium Level 3.4 3.5 Chloride Level 113 113 Carbon Dioxide Level 21.2 23.6 Anion Gap 9 6 Estimat Glomerular Filtration Rate 46 54 Neutrophils (%) (Auto) 89.4 Lymphocytes (%) (Auto) 5.0 Monocytes (%) (Auto) 5.1 Eosinophils (%) (Auto) 0.3 Basophils (%) (Auto) 0.2 Neutrophils # (Auto) 20.1 Lymphocytes # (Auto) 1.1 Monocytes # (Auto) 1.1 Eosinophils # (Auto) 0.1 Basophils # (Auto) 0.0 CBC Comment AUTO DIFF Differential Total Cells Counted 100 Neutrophils % (Manual) 77 Band Neutrophils % 7 Lymphocytes % 11 Monocytes % 5 Neutrophils # (Manual) 18.9 Differential Comment FINAL DIFF MANUAL Platelet Estimate LOW Platelet Morphology Comment NORMAL Acanthocytes 1+ Keratocytes 1+ Total Protein 5.3 Albumin 1.5 Alkaline Phosphatase 115 Aspartate Amino Transf (AST/SGOT) 37 Alanine Aminotransferase (ALT/SGPT) 28 Total Bilirubin 0.6 Ammonia 58 Total Creatine Kinase 446 Creatine Kinase MB 4.0 Creatine Kinase MB % 0.9 Date/Time Source Procedure Growth Status 11/29/16 14:55 Blood Peripheral Aerobic Blood Culture Pending Resulted 11/29/16 14:55 Blood Peripheral Anaerobic Blood Culture - Final QNS - SEE AEROBE REPORT Resulted Radiology Last Impressions Chest X-Ray 11/24/16 0000 Signed Impressions: Service Date/Time: Thursday, November 24, 2016 11:57 - CONCLUSION: 1. Interval placement of nasogastric catheter with tip beyond the GE junction omitted from the image. 2. Persistent diffuse coarse interstitial prominence likely reflecting interstitial edema/pneumonia superimposed on chronic interstitial changes. 3. Stable mild bibasilar airspace disease, likely atelectasis. Sam Buckner MD Abdomen/Pelvis CT 11/23/16 0000 Signed Impressions: Service Date/Time: Wednesday, November 23, 2016 21:46 - CONCLUSION: 1. 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 2. Mild head pancreatitis possible in the proper clinical setting. Patient has recently had ERCP and bile duct stone extraction. 3. Bibasilar pneumonia developing. Tiny pleural effusion on the right. 4. Chronic findings otherwise. Giovani Martinez MD Abdomen Ultrasound 11/23/16 0000 Signed Impressions: Service Date/Time: Wednesday, November 23, 2016 19:33 - CONCLUSION: 1. Somewhat limited study. Proximal superior mesenteric artery appears patent. 2. Mildly elevated flow velocities in the celiac and hepatic arteries of doubtful clinical significance. Giovani Martinez MD GI Procedure 11/21/16 0000 Signed Impressions: Service Date/Time: Monday, November 21, 2016 10:44 - CONCLUSION: ERCP as above. Reymundo Wilburn MD FACR Chest CT 11/20/16 1407 Signed Impressions: Service Date/Time: Sunday, November 20, 2016 15:13 - CONCLUSION: 1. Severe underlying emphysema. 2. Status post median sternotomy with postsurgical changes. Maikol Paredes MD Narrative Exam Ventilated Abd: soft, EVELYN dressing in place, NGT with enteral feeding at 30cc/h A/P Assessment and Plan 86 yo F POD 6 s/p ex lap right colectomy, cholecystectomy, for cecal volvulus and common duct stones. Possible extubation today. Increase feeds as adelina to goal rate 45ml/h. Reglan 5mg Q8h. Will dc dressing on POD 7 (tomorrow) Appreciate critical care. Collin,Bryant TA Nov 30, 2016 10:54
[2016-11-30] MEDS ORDERED: DEXMEDETOMIDINE INJ 200 MCG in SODIUM CHLORIDE 0.9% INJ 50 ML IV PRN (11:00)
[2016-11-30] MEDS: FLUCONAZOLE 400 MG PREMIX BAG 200 ML IV SCH (12:31)
[2016-11-30] MEDS ORDERED: ETOMIDATE 40 MG/20 ML VIAL IV PUSH ONE (14:45)
[2016-11-30] MEDS ORDERED: ROCURONIUM INJ 100 MG/10 ML VIAL IV ONE (14:45)
[2016-11-30] MEDS ORDERED: ETOMIDATE 20 MG/10 ML VIAL ONE (15:27)
--- NOTE | 2016-11-30 15:44 | PD.PROCEDR ---
Procedure Note Procedure DATE: 11/30/2016 PROCEDURE: Orotracheal intubation INDICATION: Acute respiratory Failure DETAILS OF PROCEDURE The patient was placed in optimal position and preoxygenated with 100% FiO2 via bag valve mask. At the start oxygen saturation was 100%. The patient was administered 20 milligrams etomidate IV and 50 milligrams rocuronium IV. I entered the oropharynx with a size 4 GVL glidescope blade and obtained a grade 2 view of the airway. On single attempt a size 7.5 cuffed endotracheal tube was passed through the vocal cords. Correct tube location was confirmed with end tidal CO2 detector and by auscultating over bilateral lung hebert. The endotracheal tube was secured with adhesive tape at a depth of 23 cm at the lips. The patient was connected to the ventilator. The patient tolerated the procedure well without any apparent complications. Oxygen saturations were maintained greater than 92% all times. STAT chest x-ray pending at time of dictation. Jean Pierre Oh MD Nov 30, 2016 15:44
--- NOTE | 2016-11-30 16:21 | RADRPT ---
EXAM DATE/TIME: 11/30/2016 15:56 [facility] COMPARISON: CHEST SINGLE AP, November 30, 2016, 5:00. INDICATIONS : Reintubation MEDICAL HISTORY : Hypertension. SURGICAL HISTORY : CABG Hysterectomy.Carotid endarterectomy ENCOUNTER: Subsequent ACUITY: 1 week PAIN SCORE: Non-responsive. LOCATION: Bilateral chest FINDINGS: Right jejunal catheter remains in place as well as an ET tube terminating above the kashif nasogastri c tube tip in midline of the stomach with hypoaeration and bibasilar parenchymal opacities unchanged prominent vascularity interstitium in the upper lobes . Prior median sternotomy cardiac surgery appr eciated CONCLUSION: Stable chest. ET tube terminates above the kashif. Hairs Kapadia MD on November 30, 2016 at 16:18 Board Certified Radiologist. This report was verified electronically.
[2016-11-30] MEDS ORDERED: TERBUTALINE INJ 1 MG/ML AMP SQ PRN ×2 (16:45→17:45)
[2016-11-30] MEDS: RIFAXIMIN 200 MG TAB NG SCH ×2 (17:24→21:29)
[2016-11-30] MEDS: ENOXAPARIN SODIUM 30 MG/0.3 ML SYRINGE SQ SCH (17:25)
[2016-11-30] MEDS: DILTIAZEM INJ 125 MG in SODIUM CHLORIDE 0.9% INJ 100 ML IV PRN (17:27)
[2016-11-30 17:44] LABS: BLOOD GAS BASE EXCESS -7.8 mmol/L (-2-2); BLOOD GAS HCO3 17 mmol/L (22-26); BLOOD GAS METHEMOGLOBIN 1.3 % (0-2); BLOOD GAS O2 HGB SATURATION 97 % (90-100); BLOOD GAS OXYGEN CONTENT 13.6 Vol % (12.0-20.0); BLOOD GAS PCO2 31 mmHg (38-42); BLOOD GAS PO2 293 mmHg (61-120); BLOOD GAS TOTAL HGB 9.5 G/DL (12.0-16.0); TEMP CORR TO 98.6
[2016-11-30 17:45] LABS: CRITICAL VALUE NO; DRAW SITE RT RADIAL; FIO2 100 %; NUMBER OF ARTERIAL PUNCTURES 1; OXYGEN DEVICE VENTILATOR; VENT SETTINGS 700/15/PEEP 8
[2016-11-30] MEDS ORDERED: PHENYLEPHRINE INJ 160 MG in DEXTROSE 5% IN WATE 500 ML INJ 484 ML IV PRN ×2 (17:45)
[2016-11-30] MEDS ORDERED: DILTIAZEM HCL 25 MG/5 ML VIAL IV ONE (17:45)
[2016-11-30 17:46] LABS: STAT NO
[2016-11-30] MEDS: fentaNYL DRIP 250 ML IV PRN (18:06)
[2016-11-30] MEDS ORDERED: AMITRIPTYLINE HCL 10 MG TAB NG SCH (21:00)
[2016-11-30] MEDS: ACETAMINOPHEN 650 MG/20.3 ML UDC OG-TUBE PRN (23:54)
[2016-12-01] VITALS (22 sets, daily range): BP systolic 95–103; BP diastolic 46–55; PULSE 73–120; RESP 18; TEMP 97.8–101.7; O2SAT 95–100
[2016-12-01] MEDS: INSULIN NovoLIN REGULAR SUPPLEMENTAL SCALE SQ SCH ×6 (00:08→20:10)
[2016-12-01] MEDS: DILTIAZEM INJ 125 MG in SODIUM CHLORIDE 0.9% INJ 100 ML IV PRN ×2 (02:17→17:48)
[2016-12-01] MEDS: PIPERACIL-TAZO 2.25 GM PREMIX 50 ML IV SCH ×4 (02:56→20:10)
[2016-12-01] MEDS: PROPOFOL 1000 MG/100 ML INJ 100 ML IV PRN ×2 (02:59→13:16)
[2016-12-01 03:15] LABS: HEMATOCRIT 33.4 % (35.0-46.0)
[2016-12-01 03:22] LABS: REVIEW FLAG FINAL
[2016-12-01] MEDS: RESP: ALBUTEROL 2.5 MG/IPRATROPIUM 0.5 MG NEB (SCH) NEB ×4 (03:36→21:58)
[2016-12-01 04:18] LABS: HEMATOCRIT 34.6 % (35.0-46.0); MEAN CELL VOLUME 85.2 FL (80.0-100.0); MEAN CORPUSCULAR HEMOGLOBIN 27.9 PG (27.0-34.0); MEAN CORPUSCULAR HGB CONC 32.7 % (32.0-36.0); PLATELET COUNT 130 TH/MM3 (150-450); RED BLOOD COUNT 4.06 MIL/MM3 (4.00-5.30); RED CELL DISTRIBUTION WIDTH 15.8 % (11.6-17.2)
[2016-12-01 04:19] LABS: REVIEW FLAG FINAL
[2016-12-01 04:42] LABS: ALT (GPT) 26 U/L (10-53); ANION GAP 13 MEQ/L (5-15); AST (GOT) 40 U/L (15-37); BICARBONATE 18.2 MEQ/L (21.0-32.0); BLOOD UREA NITROGEN 33 MG/DL (7-18); CHLORIDE 109 MEQ/L (98-107); GLOMERULAR FILTRATION RATE 28 ML/MIN (>89); MAGNESIUM 2.2 MG/DL (1.5-2.5); POTASSIUM 3.3 MEQ/L (3.5-5.1); SODIUM (NA) 140 MEQ/L (136-145)
[2016-12-01 04:50] LABS: ALKALINE PHOSPHATASE 136 U/L (45-117); CREATINE KINASE 340 U/L (26-192); TOTAL BILIRUBIN ADULT 0.9 MG/DL (0.2-1.0)
[2016-12-01 05:12] LABS: CKMB 2.6 NG/ML (0.5-3.6)
[2016-12-01] MEDS: FREE WATER G-TUBE SCH ×3 (05:22→22:00)
[2016-12-01] MEDS: METOCLOPRAMIDE HCL 10 MG/2 ML VIAL IV PUSH SCH ×3 (05:22→22:29)
[2016-12-01] MEDS: RIFAXIMIN 200 MG TAB NG SCH (05:23)
[2016-12-01] MEDS: ARTIFICIAL TEARS OPTH SOLN 15 ML BTL LEFT EYE SCH ×3 (05:23→22:29)
[2016-12-01] MEDS: DILTIAZEM HCL 30 MG TAB PO SCH ×4 (05:23→16:10)
[2016-12-01] MEDS ORDERED: LACTATED RINGER'S 1000 ML INJ 1,000 ML IV ONE ×2 (06:30→10:45)
[2016-12-01] MEDS ORDERED: ALBUMIN HUMAN 25% 25 GM/100 ML BAGP IV ONE (06:30)
--- NOTE | 2016-12-01 06:43 | RADRPT ---
EXAM DATE/TIME: 12/01/2016 05:48 [facility] COMPARISON: CHEST SINGLE AP, November 30, 2016, 15:56. INDICATIONS : Shortness of breath, possible pulmonary disease. MEDICAL HISTORY : Hypertension. SURGICAL HISTORY : CABG. Hysterectomy. Carotid endarterectomy. ENCOUNTER: Subsequent ACUITY: 1 week PAIN SCORE: Non-responsive. LOCATION: Bilateral chest FINDINGS: ET tube tip well above the kashif. Gastric tube traverses the [id number]. Right internal jugular catheter tip projects over the distal superior vena cava. Interval resolution of airspace opacities in the lower right lung. Persistent non-consolidative patchy infiltrates in the left lower lung. B oth hemidiaphragms are well delineated. Normal heart size. CONCLUSION: Resolved infiltrates in the right lower lung and persistent infiltrates in the left lower lung. Shant Robertson MD on December 01, 2016 at 6:41 Board Certified Radiologist. This report was verified electronically.
[2016-12-01] MEDS ORDERED: POTASSIUM CHLOR 20 MEQ PREMIX 100 ML IV ONE (06:45)
--- NOTE | 2016-12-01 06:49 | HHI.CCPN ---
Subjective Remarks/Hospital Course 86 y/o woman developed worsening SOB this afternoon associated with marked leukocytosis. Recent biliary instrumentation for obstruction 48 hours ago and probable sepsis. On appropriate antibiotics. Requiring NRBM now for oxygenation to 97%. Visibly labored breathing. CXR with interstitial edema. EF 35% 2014. Move to ICU. 11/24: Patient s/p colonoscopy this morning which showed mod. diverticulosis in sigmoid colon and hemorrhoids. Remains on NRB with good sats. Afebrile. Cr increased 1.51 from 1.08. 11/25 Patient s/p Ex lap, right colectomy and cholecystectomy. She kept intubated postop went into Afib with RVR overnight and placed on Cardizem drip 10mg/hr. 11/26 Patient is sedated with Diprivan, fentanyl and intubated. Afebrile. On Cardizem drip 5mg/hr. renal function worse with Cr: 2.01 from 1.89, UOP: 1L in 24 hrs 11/27 Patient remains sedated and intubated. Off Cardizem drip. Renal function is improving with Cr: 1.67 from 2.01. Afebrile. 11/28 remains intubated sedated. Heart rate controlled. Creat 1.26. Hb 6.5. Status post 2 units PRBC today. WBC count decreased from 40,000-26,000. Creat improving 1.26 11/29: Patient A. fib with RVR currently on diltiazem drip at 15 mg an hour for rate control. Hemodynamically stable. 11/30: Heart rate better controlled today. Diltiazem drip discontinued overnight. Heart rate currently in the 70s. Tolerated PSV trials yesterday. We'll attempt extubation today if tolerates. No bowel movement. Tolerating tube feeds at 30 cc an hour Subjective 12/01: Tmax 101.7. Failed extubation trial after 1 hour yesterday. Persistently hypotensive post intubation. Transfuse 1 unit hemoglobin yesterday for melena per RN. Hemoglobin went from 7.5-11.3. CVP is 12. Enoxaparin will be held. CT thorax, abdomen and pelvis performed now. Lactate pending. Serial hemoglobins. GI consult for EGD Objective Vital Signs Date Time Temp Pulse Resp B/P (MAP) Pulse Ox O2 Delivery O2 Flow Rate FiO2 12/01/16 06:00 110 12/01/16 04:29 95 60 12/01/16 04:00 99.6 18 101/52 (68) 11/30/16 14:30 Non-Rebreather 12 Intake and Output 12/01/16 12/01/16 12/02/16 08:00 16:00 00:00 Intake Total 1548 ml Output Total 750 ml Balance 798 ml Result Diagram: 12/01/16 0400 12/01/16 0400 Other Results Microbiology Date/Time Source Procedure Growth Status 11/29/16 14:55 Blood Peripheral Aerobic Blood Culture - Preliminary NO GROWTH IN 1 DAY Resulted 11/29/16 14:55 Blood Peripheral Anaerobic Blood Culture - Final QNS - SEE AEROBE REPORT Resulted 11/30/16 23:00 Stool Stool Stool Occult Blood (MAXINE) - Final HEMOCCULT POSITIVE Complete Imaging Last Impressions Chest X-Ray 11/30/16 0600 Signed Impressions: Service Date/Time: Wednesday, November 30, 2016 05:00 - CONCLUSION: Persistent lower lung infiltrates. Shant Robertson MD Head CT 11/27/16 0000 Signed Impressions: Service Date/Time: Sunday, November 27, 2016 14:47 - CONCLUSION: 1. Questionable edema or subacute infarct in the left parietal deep white matter. This would be better evaluated with MRI. No intracranial hemorrhage or significant mass effect. Romario Kauffman MD Brain MRI 11/27/16 0000 Signed Impressions: Service Date/Time: Sunday, November 27, 2016 18:10 - CONCLUSION: 1. Moderate periventricular and subcortical white matter small vessel ischemic changes bilaterally. 2. 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 3. No acute infarct, acute hemorrhage, mass effect or extra-axial fluid collection. 4. Fluid level within sphenoid sinuses. 5. Fluid within the mastoid air cells bilaterally. Hasmukh Oakes MD Abdomen/Pelvis CT 11/23/16 0000 Signed Impressions: Service Date/Time: Wednesday, November 23, 2016 21:46 - CONCLUSION: 1. 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 2. Mild head pancreatitis possible in the proper clinical setting. Patient has recently had ERCP and bile duct stone extraction. 3. Bibasilar pneumonia developing. Tiny pleural effusion on the right. 4. Chronic findings otherwise. Giovani Martinez MD Abdomen Ultrasound 11/23/16 0000 Signed Impressions: Service Date/Time: Wednesday, November 23, 2016 19:33 - CONCLUSION: 1. Somewhat limited study. Proximal superior mesenteric artery appears patent. 2. Mildly elevated flow velocities in the celiac and hepatic arteries of doubtful clinical significance. Giovani Martinez MD GI Procedure 11/21/16 0000 Signed Impressions: Service Date/Time: Monday, November 21, 2016 10:44 - CONCLUSION: ERCP as above. Reymundo Wilburn MD FACR Chest CT 11/20/16 1407 Signed Impressions: Service Date/Time: Sunday, November 20, 2016 15:13 - CONCLUSION: 1. Severe underlying emphysema. 2. Status post median sternotomy with postsurgical changes. Maikol Paredes MD Objective Remarks GENERAL: 86 yo female, critically ill currently orotracheally intubated SKIN: Warm and dry. No rash HEAD: Normocephalic. EYES: No scleral icterus. No injection or drainage. 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 NECK: Supple, trachea midline. No JVD or lymphadenopathy. CARDIOVASCULAR: Tachycardia, IR S1, S2 no S4. Faint 2/6 systolic murmur left lower sternal border/right upper sternal border RESPIRATORY: Breath sounds equal bilaterally. No accessory muscle use. GASTROINTESTINAL: Abdomen soft, tenderness on palpation. EVELYN dressing in place , with abdominal binder covering MUSCULOSKELETAL: Trace peripheral edema Neuro: Currently on propofol for sedation. Withdraws all 4 extremities. Was following commands yesterday post extubation. Date of Insertion: Nov 24, 2016 Line: Central Venous Catheter Side: Right Location: Internal, Jugular A/P Assessment and Plan Neuro/Psych: History of chronic bilateral basal ganglia CVA Acute toxic metabolic encephalopathy Prosthetic left eye Currently on propofol at 20 mics grams per kilogram per minute and/fentanyl drip at 100 mcg an hour infusion for sedation/analgesia while intubated Goal of RASS -2 Daily sedation vacation. MRI brain 11/27 showed moderate small vessel disease, old bilateral basal ganglia CVA however no acute findings. Ammonia level currently [address] Roque - neurology Continue amitriptyline 10 mg at night Pulm: Acute hypoxemic respiratory failure ACV 15/500/8/60 Ventilator bundle Albuterol/ipratropium aerosols every 6 hours with albuterol aerosols every 2 hours as needed for dyspnea Continue with vent support and maintain sat >92% SBT daily as adelina. Not likely today. Tolerated extubation 1.[address] chest 11/20: Severe underlying emphysema. Status post median sternotomy with postsurgical changes. Follow-up a.m. chest x-ray 11/30 revealed persistent bilateral lower lobe infiltrates CV: Systolic heart failure - likely chronic ejection fraction 40% Severe sepsis Atrial Fibrillation w/ RVR History of hypertension Severe pulmonary hypertension PAD history of bilateral CEA Monitor HR and BP keep MAP>65mmHg Resuming Cardizem drip currently at 10 mg an hour Currently on Cardizem 30 mg every 6 hours Lactic acid 11/23: 0.9. Repeat today pending Echo from 11/26 EF 40%, mild MR. Moderate AR/TR. Severe pulmonary HTN (PAP 70mmHg) On ASA 81 mg daily, this will be held in light of GI bleeding Holding Procardia XL 60mg daily as cannot be crushed. Atorvastatin 80 mg daily held ( elevated LFT's) Currently on Cilostazol at 100 mg daily for claudication this will be held in light of current bleeding RENAL/: Acute kidney injury - resume Hypokalemia Monitor renal function, I/O's, avoid nephrotoxins renal is following- Dr. Ferrari Free water 200ml Q8, monitor sodium level ICU electrolyte protocol initiated Received 20 mEq KCl IV 1. Recheck at 1600 Will bolus with 50 g albumin and 1 L LR. 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 Mild head pancreatitis possible in the proper clinical setting. Patient has recently had ERCP and bile duct stone extraction. Bibasilar pneumonia developing. Tiny pleural effusion on the right US abdomen: Proximal superior mesenteric artery appears patent. Initiate Xifaxan 40 mg by tube every 8 hours and lactulose 30 cc twice a day. Recheck ammonia level in AM. Decreased to 38 Consult gastroenterology for possible EGD Will notify surgery today. Dr. pappas is following for Dr. Polanco On ursodiol 300 mg by mouth daily On metoclopramide per Dr. Polanco for bowel prokinetic medication ID: Continue with abx per ID (piperacillin/tazobactam/Diflucan) Monitor for signs of infections ( Fever, WBC) Pertinent cultures BC 11/24: NGTD . Blood cultures 11/29 - pending WBC currently increased to 55,000. Imaging of the abdomen/pelvis today Heme: Leukocytosis Normocytic anemia Thrombocytopenia Monitor CBC Status post 2 units PRBCs 11/28. 1 unit PRBCs 12/01 Hemoccult stool 11/30 positive Endo: SSI with accuchecks GI prophylaxis- Pantoprazole 40mg IV twice a day DVT prophylaxis- Enoxaparin 30mg daily to be held in light of GI bleed Lines: Right IJ placed in OR 11/24 Critical Care: The total critical care time was 30 minutes. Time to perform other separately billable procedures was not included in the critical care time. Jean Pierre Oh MD Dec 01, 2016 06:49
[2016-12-01 07:52] LABS: APTT (PATIENT) 31.5 SEC (24.3-30.1); PROTHROMBIN TIME - PATIENT 11.4 SEC (9.8-11.6)
[2016-12-01] MEDS ORDERED: SODIUM CHLORID 0.9% 500 ML INJ 500 ML IV ONE (08:45)
--- NOTE | 2016-12-01 08:48 | RADRPT ---
EXAM DATE/TIME: 12/01/2016 08:13 [facility] COMPARISON: CT ABDOMEN & PELVIS W/O CONTRAST, November 23, 2016, 21:46. INDICATIONS : Blood in stool. ORAL CONTRAST: No oral contrast ingested. RADIATION DOSE: 18.58 CTDIvol (mGy) ; Combined studies - Thorax/Abdomen/Pelvis MEDICAL HISTORY : Hypertension. Stroke SURGICAL HISTORY : Hysterectomy. ENCOUNTER: Initial ACUITY: 1 day PAIN SCALE: Non-responsive LOCATION: Bilateral abdomen TECHNIQUE: Volumetric scanning of the abdomen and pelvis was performed. Using automated exposure control and ad justment of the mA and/or kV according to patient size, radiation dose was kept as low as reasonably achievable to obtain optimal diagnostic quality images. DICOM format image data is available electro nically for review and comparison. FINDINGS: LOWER LUNGS: Please refer to chest CT report for description of the supradiaphragmatic findings. LIVER: Homogeneous density without lesion. There is stable mild enlargement of the common bile duct measuri ng 8 mm distally. Gallbladder is not visualized on this exam. SPLEEN: Normal size without lesion. PANCREAS: No acute abnormality. KIDNEYS: Normal in size and shape. There is no mass, stone, or hydronephrosis. There is a cyst in the right l ower pole kidney measuring 4.9 cm. ADRENAL GLANDS: Both adrenal glands demonstrate stable thickening suggesting hyperplasia. VASCULAR: There is severe atherosclerotic disease with ectasia. BOWEL/MESENTERY: Small hiatal hernia is present and there is fluid in a mildly distended distal esophagus suggesting r eflux. Nasogastric tube distal tip is in the gastric body. Small bowel is mildly distended with fluid measuring up to 2.5 cm. There has been prior right colon surgery likely a right hemicolectomy. Area of anastomosis demonstrates no abnormality. There is air and fluid throughout the colon. Sigmoid dive rticulosis is present. There no signs of obstruction. No free intraperitoneal air is visualized. Ther e is a small volume of free fluid in the abdomen and pelvis. ABDOMINAL WALL: There is a device overlying the right abdomen causing beam hardening artifact. Interval surgery has b een performed skin triston along the midline. There is mild diffuse subcutaneous edema. RETROPERITONEUM: There is no lymphadenopathy. BLADDER: Decompressed with Sanchez catheter present. REPRODUCTIVE: Uterus is absent. No adnexal abnormality is seen. INGUINAL: There is no lymphadenopathy or hernia. MUSCULOSKELETAL: There are degenerative changes. Patient is post median sternotomy. CONCLUSION: 1. No acute finding is identified to explain the blood in stool. There are postsurgical findings sugg esting prior right hemicolectomy. Colon contains a fluid and air and there is sigmoid diverticulosis. 2. Small volume of free fluid in the abdomen and pelvis. Also, there is mild diffuse subcutaneous destin ma. Giovani Lopez MD on December 01, 2016 at 8:40 Board Certified Radiologist. This report was verified electronically.
--- NOTE | 2016-12-01 08:52 | RADRPT ---
EXAM DATE/TIME: 12/01/2016 08:13 [facility] COMPARISON: CHEST SINGLE AP, November 30, 2016, 15:56. CT THORAX W/O CONTRAST, November 20, 2016, 15:13. INDICATIONS : Respiratory distress. RADIATION DOSE: 18.58 CTDIvol (mGy) ; Combined studies - Thorax/Abdomen/Pelvis MEDICAL HISTORY : Stroke. Hypertension. SURGICAL HISTORY : Hysterectomy. ENCOUNTER: Initial ACUITY: 1 day PAIN SCALE: Non-responsive LOCATION: Bilateral chest TECHNIQUE: Volumetric scanning of the chest was performed. Using automated exposure control and adjustment of t he mA and/or kV according to patient size, radiation dose was kept as low as reasonably achievable to obtain optimal diagnostic quality images. DICOM format image data is available electronically for r eview and comparison. Follow-up recommendations for detected pulmonary nodules are based at a minimum on nodule size and pa tient risk factors according to Fleischner Society Guidelines. FINDINGS: LUNGS: There is severe centrilobular emphysema. There is bilateral airspace consolidation in both lower lobe s and to a lesser degree in the upper lobes. It is most severe in the left lower lobe. There is trace left pleural fluid. No pneumothorax is present. PLEURAE: There is trace left pleural fluid. MEDIASTINUM: The heart and great vessels demonstrate no acute abnormality. There is severe atherosclerotic diseas e of the aorta and coronary artery calcification. Patient is post median sternotomy and CABG. This ca lcification of the mitral anulus. Small lymph nodes are present in the mediastinum but none are enlar ged by size criteria. ETT, NG tube, and right IJ line are present. AXILLAE: Within normal limits. No lymphadenopathy. MUSCULOSKELETAL: There is degenerative changes of the thoracic spine and patient is post median sternotomy. MISCELLANEOUS: Please refer to abdomen and pelvis CT report for description of the subdiaphragmatic findings. CONCLUSION: 1. Severe emphysema with bilateral airspace consolidation in a patchy distribution involving the uppe r and lower lobes but most severe in the left lower lobe. There is also a trace left pleural effusion . Imaging findings are nonspecific but infection or aspiration should be considerations. 2. Coronary artery calcification. Giovani Lopez MD on December 01, 2016 at 8:46 Board Certified Radiologist. This report was verified electronically.
[2016-12-01] MEDS: SODIUM CHLORIDE 0.9% FLUSH 10 ML FLUSH IV FLUSH SCH ×2 (08:56→20:11)
[2016-12-01] MEDS: PANTOPRAZOLE SODIUM 40 MG VIAL IV PUSH SCH ×2 (08:58→20:11)
[2016-12-01] MEDS: LACTULOSE SYRUP 20 GM/30 ML CUP NG SCH ×2 (08:58→20:11)
[2016-12-01] MEDS: URSODIOL 300 MG CAP PO SCH ×2 (08:58→20:11)
[2016-12-01] MEDS: MAGNESIUM OXIDE 400 MG TAB PO SCH (08:58)
[2016-12-01] MEDS: SODIUM CHLOR 0.9% 1000 ML INJ 1,000 ML IV SCH ×2 (09:47→20:55)
[2016-12-01 10:42] LABS: HEMATOCRIT 26.3 % (35.0-46.0); MEAN CELL VOLUME 85.5 FL (80.0-100.0); MEAN CORPUSCULAR HEMOGLOBIN 27.5 PG (27.0-34.0); MEAN CORPUSCULAR HGB CONC 32.2 % (32.0-36.0); PLATELET COUNT 88 TH/MM3 (150-450); RED BLOOD COUNT 3.08 MIL/MM3 (4.00-5.30); WHITE BLOOD COUNT 42.6 TH/MM3 (4.0-11.0)
--- NOTE | 2016-12-01 10:53 | HHI.PR ---
Subjective Subjective Notes Failed trial of extubation yesterday. Possible aspiration. Had reported melena. H/H responded well to transfusion. Objective Vitals/I&O Vital Signs Date Time Temp Pulse Resp B/P (MAP) Pulse Ox O2 Delivery O2 Flow Rate FiO2 12/01/16 10:00 82 12/01/16 09:01 100 60 12/01/16 08:00 97.8 18 96/49 (65) 11/30/16 14:30 Non-Rebreather 12 Labs Laboratory Tests Test 11/30/16 17:25 12/01/16 02:50 12/01/16 04:00 12/01/16 06:30 Blood Gas Puncture Site RT RADIAL Blood Gas Patient Temperature 98.6 Blood Gas HCO3 17 Blood Gas Base Excess -7.8 Blood Gas Oxygen Saturation 97 Arterial Blood pH 7.35 Arterial Blood Partial Pressure CO2 31 Arterial Blood Partial Pressure O2 293 Arterial Blood Oxygen Content 13.6 Arterial Blood Carboxyhemoglobin 2.0 Arterial Blood Methemoglobin 1.3 Blood Gas Hemoglobin 9.5 Oxygen Delivery Device VENTILATOR Blood Gas Ventilator Setting 700/15/PEEP 8 Blood Gas Inspired Oxygen 100 Hemoglobin 10.8 11.3 Hematocrit 33.4 34.6 White Blood Count 55.0 Red Blood Count 4.06 Mean Corpuscular Volume 85.2 Mean Corpuscular Hemoglobin 27.9 Mean Corpuscular Hemoglobin Concent 32.7 Red Cell Distribution Width 15.8 Platelet Count 130 Mean Platelet Volume 12.2 Blood Urea Nitrogen 33 Creatinine 1.75 Random Glucose 95 Total Protein 6.3 Albumin 1.7 Calcium Level 8.1 Phosphorus Level 3.6 Magnesium Level 2.2 Alkaline Phosphatase 136 Aspartate Amino Transf (AST/SGOT) 40 Alanine Aminotransferase (ALT/SGPT) 26 Total Bilirubin 0.9 Sodium Level 140 Potassium Level 3.3 Chloride Level 109 Carbon Dioxide Level 18.2 Anion Gap 13 Estimat Glomerular Filtration Rate 28 Ammonia 37 Total Creatine Kinase 340 Creatine Kinase MB 2.6 Creatine Kinase MB % 0.8 Prothrombin Time 11.4 Prothromb Time International Ratio 1.0 Activated Partial Thromboplast Time 31.5 Fibrinogen 783 Test 12/01/16 07:30 12/01/16 10:07 Lactic Acid Level 3.3 Date/Time Source Procedure Growth Status 11/29/16 14:55 Blood Peripheral Aerobic Blood Culture - Preliminary NO GROWTH IN 1 DAY Resulted 11/29/16 14:55 Blood Peripheral Anaerobic Blood Culture - Final QNS - SEE AEROBE REPORT Resulted 11/30/16 23:00 Stool Stool Stool Occult Blood (MAXINE) - Final HEMOCCULT POSITIVE Complete Radiology Last Impressions Chest X-Ray 11/24/16 0000 Signed Impressions: Service Date/Time: Thursday, November 24, 2016 11:57 - CONCLUSION: 1. Interval placement of nasogastric catheter with tip beyond the GE junction omitted from the image. 2. Persistent diffuse coarse interstitial prominence likely reflecting interstitial edema/pneumonia superimposed on chronic interstitial changes. 3. Stable mild bibasilar airspace disease, likely atelectasis. Sam Buckner MD Abdomen/Pelvis CT 11/23/16 0000 Signed Impressions: Service Date/Time: Wednesday, November 23, 2016 21:46 - CONCLUSION: 1. 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 2. Mild head pancreatitis possible in the proper clinical setting. Patient has recently had ERCP and bile duct stone extraction. 3. Bibasilar pneumonia developing. Tiny pleural effusion on the right. 4. Chronic findings otherwise. Giovani Martinez MD Abdomen Ultrasound 11/23/16 0000 Signed Impressions: Service Date/Time: Wednesday, November 23, 2016 19:33 - CONCLUSION: 1. Somewhat limited study. Proximal superior mesenteric artery appears patent. 2. Mildly elevated flow velocities in the celiac and hepatic arteries of doubtful clinical significance. Giovani Martinez MD GI Procedure 11/21/16 0000 Signed Impressions: Service Date/Time: Monday, November 21, 2016 10:44 - CONCLUSION: ERCP as above. Reymundo Wilburn MD FACR Chest CT 11/20/16 1407 Signed Impressions: Service Date/Time: Sunday, November 20, 2016 15:13 - CONCLUSION: 1. Severe underlying emphysema. 2. Status post median sternotomy with postsurgical changes. Maikol Paredes MD Narrative Exam Ventilated Abd: soft, EVELYN dressing removed and inc c/d/i, NGT in place. A/P Assessment and Plan 86 yo F POD 7 s/p ex lap right colectomy, cholecystectomy, for cecal volvulus and common duct stones. Failed trial of extubation. May require tracheostomy early this week. D/w Dr. Oh and patient and son. The family desires to proceed if recommended. After GI eval ok to restart enteral feeding from my standpoint. Reglan 5mg Q8h. EVELYN removed. Appreciate critical care. Bryant Polanco MD Dec 01, 2016 10:53
[2016-12-01 11:08] LABS: REVIEW FLAG AUTO DIFF
[2016-12-01] MEDS ORDERED: BUMETANIDE INJ 100 ML IV SCH (12:21)
[2016-12-01] MEDS ORDERED: SODIUM CHLOR 0.9% 1000 ML INJ 1,000 ML IV ONE (12:30)
[2016-12-01] MEDS ORDERED: BUMETANIDE INJ 1 MG/4 ML VIAL IV PUSH ONE (12:30)
[2016-12-01] MEDS: FLUCONAZOLE 400 MG PREMIX BAG 200 ML IV SCH (12:53)
--- NOTE | 2016-12-01 14:25 | HHI.NPPN ---
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 Patient also underwent repeat ERCP for obstructed bile duct November 21, 2016. Patient noted to have had a serum creatinine level 0.8 15 September 2016. On presentation creatinine level at this institution 1.59 and has now deteriorated to 2.01. Patient in the ICU with development of respiratory insufficiency and worsening leukocytosis. Patient unable to provide any history secondary to her clinical condition. Interval History Pt remains intubated Failed extubation yesterday. BP dropped significantly. Became oliguric. Was given several boluses of IVF (Kait Loyola) Review of Systems General General Remarks Unable to obtain 2/2 to clinical condition (Kait Loyola) Objective Data Data 12/01/16 12/02/16 19:00 07:00 Intake Total 3750 ml Balance 3750 ml IV Total 3750 ml Vital Signs Date Time Temp Pulse Resp B/P (MAP) Pulse Ox O2 Delivery O2 Flow Rate FiO2 12/01/16 14:00 78 12/01/16 13:24 99 50 12/01/16 12:30 83 83/44 12/01/16 12:07 100 60 12/01/16 12:00 76 12/01/16 12:00 50 12/01/16 12:00 98.4 76 18 96/48 (64) 100 12/01/16 10:00 82 12/01/16 09:01 100 60 12/01/16 08:15 99 60 12/01/16 08:00 92 12/01/16 08:00 97.8 92 18 96/49 (65) 97 12/01/16 08:00 60 12/01/16 06:00 110 12/01/16 04:29 95 60 12/01/16 04:00 60 12/01/16 04:00 117 12/01/16 04:00 99.6 117 18 101/52 (68) 95 12/01/16 02:17 112 104/51 12/01/16 02:00 117 12/01/16 01:45 101.5 114 18 99/53 96 12/01/16 01:00 114 102/54 12/01/16 00:05 119 102/54 12/01/16 00:04 98 60 12/01/16 00:02 101.7 114 18 95/46 97 12/01/16 00:00 120 12/01/16 00:00 101.7 120 18 96/46 (63) 97 12/01/16 00:00 60 11/30/16 23:50 125 98/55 11/30/16 23:47 101.7 124 18 92/53 98 11/30/16 23:45 124 92/53 11/30/16 23:40 122 94/48 11/30/16 23:35 127 96/52 11/30/16 23:30 122 86/50 11/30/16 23:25 120 95/46 11/30/16 23:20 122 81/44 11/30/16 23:15 119 73/42 11/30/16 23:10 124 84/45 11/30/16 22:00 127 11/30/16 21:15 122 102/49 11/30/16 20:35 98 60 11/30/16 20:00 60 11/30/16 20:00 99.5 121 18 106/59 (75) 97 11/30/16 20:00 121 11/30/16 19:30 119 108/74 11/30/16 18:10 155 150/70 11/30/16 18:00 126 11/30/16 17:27 115 126/56 11/30/16 16:00 98.2 144 15 116/53 (74) 96 11/30/16 16:00 60 11/30/16 16:00 138 11/30/16 14:30 95 Non-Rebreather 12 99 (Kait Loyloa) -: 12/01/16 1007 12/01/16 0400 Microbiology 11/30/16 Stool Occult Blood (MAXINE) - Final, Complete HEMOCCULT POSITIVE Imaging Last Impressions Chest X-Ray 12/01/16 0600 Signed Impressions: Service Date/Time: Thursday, December 01, 2016 05:48 - CONCLUSION: Resolved infiltrates in the right lower lung and persistent infiltrates in the left lower lung. Shant Robertson MD Chest CT 12/01/16 0000 Signed Impressions: Service Date/Time: Thursday, December 01, 2016 08:13 - CONCLUSION: 1. Severe emphysema with bilateral airspace consolidation in a patchy distribution involving the upper and lower lobes but most severe in the left lower lobe. There is also a trace left pleural effusion. Imaging findings are nonspecific but infection or aspiration should be considerations. 2. Coronary artery calcification. Giovani Lopez MD Abdomen/Pelvis CT 12/01/16 0000 Signed Impressions: Service Date/Time: Thursday, December 01, 2016 08:13 - CONCLUSION: 1. No acute finding is identified to explain the blood in stool. There are postsurgical findings suggesting prior right hemicolectomy. Colon contains a fluid and air and there is sigmoid diverticulosis. 2. Small volume of free fluid in the abdomen and pelvis. Also, there is mild diffuse subcutaneous edema. Giovani Lopez MD Head CT 11/27/16 0000 Signed Impressions: Service Date/Time: Sunday, November 27, 2016 14:47 - CONCLUSION: 1. Questionable edema or subacute infarct in the left parietal deep white matter. This would be better evaluated with MRI. No intracranial hemorrhage or significant mass effect. Romario Kauffman MD Brain MRI 11/27/16 0000 Signed Impressions: Service Date/Time: Sunday, November 27, 2016 18:10 - CONCLUSION: 1. Moderate periventricular and subcortical white matter small vessel ischemic changes bilaterally. 2. 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 3. No acute infarct, acute hemorrhage, mass effect or extra-axial fluid collection. 4. Fluid level within sphenoid sinuses. 5. Fluid within the mastoid air cells bilaterally. Hasmukh Oakes MD Abdomen Ultrasound 11/23/16 0000 Signed Impressions: Service Date/Time: Wednesday, November 23, 2016 19:33 - CONCLUSION: 1. Somewhat limited study. Proximal superior mesenteric artery appears patent. 2. Mildly elevated flow velocities in the celiac and hepatic arteries of doubtful clinical significance. Giovani Martinez MD GI Procedure 11/21/16 0000 Signed Impressions: Service Date/Time: Monday, November 21, 2016 10:44 - CONCLUSION: ERCP as above. Reymundo Wilburn MD FACR Medication Review Current Medications Medications (Trade) Dose Ordered Sig/Jazzmine Route Start Time Stop Time Status Last Admin (NS Flush) 2 ml BID IV FLUSH 11/20/16 21:00 11/30/16 20:15 (Zofran Inj) 4 mg Q6H PRN IVP 11/20/16 16:15 (Restoril) 15 mg HS PRN PO 11/20/16 16:15 11/23/16 23:20 (Narcan Inj) 0.4 mg UNSCH PRN IV 11/20/16 16:15 (Milk Of Magnesia Liq) 30 ml Q12H PRN PO 11/20/16 16:15 (Lipitor) 80 mg HS PO 11/20/16 21:00 Future Hold 11/23/16 20:42 (Actigall) 300 mg Q12HR PO 11/22/16 21:00 12/01/16 08:58 (D50w (Vial) Inj) 50 ml UNSCH PRN IV 11/24/16 12:15 (Glucagon Inj) 1 mg UNSCH PRN OTHER 11/24/16 12:15 (NovoLIN R SUPPLEMENTAL SCALE) 1 Q4H SQ 11/24/16 12:15 11/26/16 04:12 Propofol 100 ml @ 1.89 mls/hr TITRATE PRN IV 11/25/16 07:30 12/01/16 13:16 Piperacillin Sod/ Tazobactam Sod 50 ml @ 100 mls/hr Q6H IV 11/25/16 09:00 12/01/16 08:54 Fentanyl Citrate 250 ml @ 5 mls/hr TITRATE PRN IV 11/25/16 16:15 11/30/16 18:06 (Tylenol 650 Mg/ 20 ml Liq) 650 mg Q6H PRN OG-TUBE 11/29/16 08:30 11/30/16 23:54 (Duoneb Neb) 1 ampule Q6HR NEB NEB 11/29/16 10:00 12/01/16 08:58 (Albuterol Neb) 2.5 mg Q2HR NEB PRN NEB 11/29/16 08:30 (Tears Naturale Opth Soln) 1 drop Q8HR LEFT EYE 11/29/16 14:00 12/01/16 12:57 (Reglan Inj) 5 mg Q8HR IV PUSH 11/29/16 14:00 12/01/16 12:59 Fluconazole/ Sodium Chloride 200 ml @ 100 mls/hr Q24H IV 11/29/16 13:00 12/01/16 12:53 (Cardizem) 30 mg Q6HR PO 11/29/16 18:00 11/30/16 12:31 Potassium Chloride 100 ml @ 50 mls/hr Q2H PRN IV 11/30/16 07:30 Potassium Chloride 100 ml @ 50 mls/hr Q2H PRN IV 11/30/16 07:30 (K-Lyte Cl Eff) 50 meq UNSCH PRN PO 11/30/16 07:30 Potassium Chloride 100 ml @ 25 mls/hr UNSCH PRN IV 11/30/16 07:30 Potassium Chloride 100 ml @ 50 mls/hr Q2H PRN IV 11/30/16 07:30 Magnesium Sulfate 4 gm/Sodium Chloride 100 ml @ 50 mls/hr UNSCH PRN IV 11/30/16 07:30 (Mag-Ox) 800 mg UNSCH PRN PO 11/30/16 07:30 Magnesium Sulfate 2 gm/Sodium Chloride 100 ml @ 50 mls/hr UNSCH PRN IV 11/30/16 07:30 (K-Phos) 2,000 mg Q4H PRN PO 11/30/16 07:30 Sodium Phosphate 30 mmol/Sodium Chloride 250 ml @ 42 mls/hr UNSCH PRN IV 11/30/16 07:30 (K-Phos) 2,000 mg UNSCH PRN PO/TUBE 11/30/16 07:30 Potassium Phosphate 30 mmol/ Sodium Chloride 260 ml @ 42 mls/hr UNSCH PRN IV 11/30/16 07:30 (Mag-Ox) 400 mg DAILY PO 11/30/16 09:00 12/03/16 08:59 12/01/16 08:58 (Lactulose Liq) 30 ml BID NG 11/30/16 09:00 12/01/16 08:58 (Free Water) 200 ml Q8HR G-TUBE 11/30/16 14:00 12/01/16 05:22 Diltiazem HCl 125 mg/Sodium Chloride 125 ml @ 5 mls/hr TITRATE PRN IV 11/30/16 16:45 12/01/16 02:17 Phenylephrine HCl 160 mg/Dextrose 500 ml @ 7.5 mls/hr TITRATE PRN IV 11/30/16 17:45 11/30/16 18:10 (Brethine Inj) 1 mg UNSCH PRN SQ 11/30/16 17:45 (Protonix Inj) 40 mg BID IV PUSH 12/01/16 09:00 12/01/16 08:58 Sodium Chloride 1,000 ml @ 84 mls/hr [id number] IV 12/01/16 09:00 12/01/16 09:47 (Kait Loyola) Physical Exam General Appearance: No Acute Distress (Kait Loyola) Eyes Eye Remarks Prosthetic R eye (Kait Loyola) Neck Neck Exam: Trachea Midline (Kait Loyola) Pulmonary Resp Exam: Breath Sounds Equal, Diminished Breath Sounds (Kait Loyola) Cardiology CV Exam: Normal Sinus Rhythm, Irregular, Murmur CV Remarks LUSB (Kait Loyola) Extremeties Extremities Exam: Moderate Edema (1-2+ pitting BUE and BLE) (Kait Loyola) Neurologic Neuro Exam: Unresponsive (Kait Loyola) Assessment/Plan Problem List: (1) JOSUE (acute kidney injury) ICD Codes: N17.9 - JOSUE (acute kidney injury) Status: Acute Plan: Renal functions have been improving related to previous insult related to abdominal surgery Declined today from hemodynamic issues regarding failed extubation and dropping Hgb related to GI bleed. BP improving and hopefully renal functions will improve, but this remains to be seen. Medications should be adjusted for the patient's estimated GFR if clinically indicated. Avoid agents with significant potential for nephrotoxicity possible including NSAIDs for analgesia, iodine contrast agents. Gadolinium is contraindicated if the GFR is below 30. Permanent Comment: Secondary to sepsis. Last Edited By: Radha Ferrari on Nov 26, 2016 11:19 (2) Sepsis ICD Codes: A41.9 - Sepsis, unspecified organism Plan: Management per infectious disease. Permanent Comment: Patient status post right colectomy for volvulus as well as ERCP obstructed bile duct November 21, 2016. Last Edited By: Radha Ferrari on Nov 26, 2016 11:20 (3) Hypernatremia ICD Codes: E87.0 - Hyperosmolality and hypernatremia Status: Resolved Plan: Resolved with D5 and free water (4) Hypertension ICD Codes: I10 - Hypertension Status: Chronic Plan: As per hx. Hypotensive in house requiring inotropic support (Kait Loyola) Plan Recurrence of acute renal insufficiency secondary to hemodynamic factors i.e. hypotension and GI bleed. Fortunately with fluid boluses the urine output appears to be improving and hopefully this will translate into an improvement in renal indices soon. I discussed with the patient's daughter the current situation as far as her mother's renal function is concerned. Case discussed with critical care. The exam, history, and the medical decision-making described in the above note were completed with the assistance of the PA-Naif. I reviewed and agree with the findings presented. I attest that I had a [id number] encounter with the patient on the same day, and personally performed and documented my assessment and findings in the medical record. (Kesha Ferrari MD) Problem Qualifiers (1) Hypertension: Qualified Codes: I10 - Essential (primary) hypertension Kait Loyola Dec 01, 2016 14:25 Kesha Ferrari MD Dec 01, 2016 17:13
--- NOTE | 2016-12-01 15:36 | HHI.PR ---
Addendum to Inpatient Note Additional Information pt seen around 1500 full note to follow events note Extubated yday Probably aspirated ERe-intubated On pressors, neosynephrine + Melena + liquid stool WBC up to 55 On exam rhonchi cyanosis feet, fingers distended abdomen with clean incision chk c.diff dw RN Sharon Samayoa MD Dec 01, 2016 15:36
[2016-12-01 15:37] LABS: HEMATOCRIT 26.1 % (35.0-46.0)
--- NOTE | 2016-12-01 15:43 | HHI.GIFU ---
Subjective Remarks This is an 86 yo lady s/p ex lap, right colectomy, cholecystectomy, for cecal volvulus and gallstones. She developed worsening SOB, leukocytosis and was intubated. She failed extubation trials yesterday. GI has been reconsulted for melanotic stool and drop in hgb. She developed melanotic stool yesterday along with clots. NO clots today. Has NGT with yellow bilious drainage no blood or coffee grounds. SHe had a colonoscopy on 11/24 with poor prep that found diverticulosis, hemorrhoids. ERCP 11/21. (Radha Jamil) Objective Vitals I&O Vital Signs Date Time Temp Pulse Resp B/P (MAP) Pulse Ox O2 Delivery O2 Flow Rate FiO2 12/01/16 14:00 78 12/01/16 13:24 99 50 12/01/16 12:30 83 83/44 12/01/16 12:07 100 60 12/01/16 12:00 76 12/01/16 12:00 50 12/01/16 12:00 98.4 76 18 96/48 (64) 100 12/01/16 10:00 82 12/01/16 09:01 100 60 12/01/16 08:15 99 60 12/01/16 08:00 92 12/01/16 08:00 97.8 92 18 96/49 (65) 97 12/01/16 08:00 60 12/01/16 06:00 110 12/01/16 04:29 95 60 12/01/16 04:00 60 12/01/16 04:00 117 12/01/16 04:00 99.6 117 18 101/52 (68) 95 12/01/16 02:17 112 104/51 12/01/16 02:00 117 12/01/16 01:45 101.5 114 18 99/53 96 12/01/16 01:00 114 102/54 12/01/16 00:05 119 102/54 12/01/16 00:04 98 60 12/01/16 00:02 101.7 114 18 95/46 97 12/01/16 00:00 120 12/01/16 00:00 101.7 120 18 96/46 (63) 97 12/01/16 00:00 60 11/30/16 23:50 125 98/55 11/30/16 23:47 101.7 124 18 92/53 98 11/30/16 23:45 124 92/53 11/30/16 23:40 122 94/48 11/30/16 23:35 127 96/52 11/30/16 23:30 122 86/50 11/30/16 23:25 120 95/46 11/30/16 23:20 122 81/44 11/30/16 23:15 119 73/42 11/30/16 23:10 124 84/45 11/30/16 22:00 127 11/30/16 21:15 122 102/49 11/30/16 20:35 98 60 11/30/16 20:00 60 11/30/16 20:00 99.5 121 18 106/59 (75) 97 11/30/16 20:00 121 11/30/16 19:30 119 108/74 11/30/16 18:10 155 150/70 11/30/16 18:00 126 11/30/16 17:27 115 126/56 11/30/16 16:00 98.2 144 15 116/53 (74) 96 11/30/16 16:00 60 11/30/16 16:00 138 I/O 11/30/16 11/30/16 11/30/16 12/01/16 12/01/16 12/01/16 07:00 15:00 23:00 07:00 15:00 23:00 Intake Total 1411 ml 350 ml 677 ml 1563 ml 3750 ml Output Total 500 ml 0 ml 1175 ml 750 ml Balance 911 ml 350 ml -498 ml 813 ml 3750 ml IV Total 684 ml 350 ml 100 ml 748 ml 3750 ml Tube Feeding 227 ml 227 ml Packed Cells 350 ml Blood Product IV Normal Saline Flush 65 ml Tube Irrigant 150 ml Other 500 ml 200 ml 400 ml Output Urine Total 500 ml 875 ml 150 ml Stool Total 600 ml Gastric Drainage Total 300 ml Tube Feeding Residual Discard 0 ml # Bowel Movements 0 3 Laboratory Laboratory Tests Test 11/30/16 17:25 12/01/16 02:50 12/01/16 04:00 12/01/16 06:30 Blood Gas Puncture Site RT RADIAL Blood Gas Patient Temperature 98.6 Blood Gas HCO3 17 Blood Gas Base Excess -7.8 Blood Gas Oxygen Saturation 97 Arterial Blood pH 7.35 Arterial Blood Partial Pressure CO2 31 Arterial Blood Partial Pressure O2 293 Arterial Blood Oxygen Content 13.6 Arterial Blood Carboxyhemoglobin 2.0 Arterial Blood Methemoglobin 1.3 Blood Gas Hemoglobin 9.5 Oxygen Delivery Device VENTILATOR Blood Gas Ventilator Setting 700/15/PEEP 8 Blood Gas Inspired Oxygen 100 Hemoglobin 10.8 11.3 Hematocrit 33.4 34.6 White Blood Count 55.0 Red Blood Count 4.06 Mean Corpuscular Volume 85.2 Mean Corpuscular Hemoglobin 27.9 Mean Corpuscular Hemoglobin Concent 32.7 Red Cell Distribution Width 15.8 Platelet Count 130 Mean Platelet Volume 12.2 Blood Urea Nitrogen 33 Creatinine 1.75 Random Glucose 95 Total Protein 6.3 Albumin 1.7 Calcium Level 8.1 Phosphorus Level 3.6 Magnesium Level 2.2 Alkaline Phosphatase 136 Aspartate Amino Transf (AST/SGOT) 40 Alanine Aminotransferase (ALT/SGPT) 26 Total Bilirubin 0.9 Sodium Level 140 Potassium Level 3.3 Chloride Level 109 Carbon Dioxide Level 18.2 Anion Gap 13 Estimat Glomerular Filtration Rate 28 Ammonia 37 Total Creatine Kinase 340 Creatine Kinase MB 2.6 Creatine Kinase MB % 0.8 Prothrombin Time 11.4 Prothromb Time International Ratio 1.0 Activated Partial Thromboplast Time 31.5 Fibrinogen 783 Test 12/01/16 07:30 12/01/16 10:07 12/01/16 12:36 Lactic Acid Level 3.3 White Blood Count 42.6 Red Blood Count 3.08 Hemoglobin 8.5 Hematocrit 26.3 Mean Corpuscular Volume 85.5 Mean Corpuscular Hemoglobin 27.5 Mean Corpuscular Hemoglobin Concent 32.2 Red Cell Distribution Width 16.0 Platelet Count 88 Mean Platelet Volume 11.8 Urine Eosinophils NONE SEEN Urine Random Creatinine 80.9 Urine Random Sodium 11 Date/Time Source Procedure Growth Status 11/29/16 14:55 Blood Peripheral Aerobic Blood Culture - Preliminary NO GROWTH IN 2 DAYS Resulted 11/29/16 14:55 Blood Peripheral Anaerobic Blood Culture - Final QNS - SEE AEROBE REPORT Resulted 11/30/16 23:00 Stool Stool Stool Occult Blood (MAXINE) - Final HEMOCCULT POSITIVE Complete Imaging Last Impressions Chest X-Ray 12/01/16 0600 Signed Impressions: Service Date/Time: Thursday, December 01, 2016 05:48 - CONCLUSION: Resolved infiltrates in the right lower lung and persistent infiltrates in the left lower lung. Shant Robertson MD Chest CT 12/01/16 Signed Impressions: Service Date/Time: Thursday, December 01, 2016 08:13 - CONCLUSION: 1. Severe emphysema with bilateral airspace consolidation in a patchy distribution involving the upper and lower lobes but most severe in the left lower lobe. There is also a trace left pleural effusion. Imaging findings are nonspecific but infection or aspiration should be considerations. 2. Coronary artery calcification. Giovani Lopez MD Abdomen/Pelvis CT 12/01/16 Signed Impressions: Service Date/Time: Thursday, December 01, 2016 08:13 - CONCLUSION: 1. No acute finding is identified to explain the blood in stool. There are postsurgical findings suggesting prior right hemicolectomy. Colon contains a fluid and air and there is sigmoid diverticulosis. 2. Small volume of free fluid in the abdomen and pelvis. Also, there is mild diffuse subcutaneous edema. Giovani Lopez MD Head CT 11/27/16 Signed Impressions: Service Date/Time: Sunday, November 27, 2016 14:47 - CONCLUSION: 1. Questionable edema or subacute infarct in the left parietal deep white matter. This would be better evaluated with MRI. No intracranial hemorrhage or significant mass effect. Romario Kauffman MD Brain MRI 11/27/16 Signed Impressions: Service Date/Time: Sunday, November 27, 2016 18:10 - CONCLUSION: 1. Moderate periventricular and subcortical white matter small vessel ischemic changes bilaterally. 2. 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 3. No acute infarct, acute hemorrhage, mass effect or extra-axial fluid collection. 4. Fluid level within sphenoid sinuses. 5. Fluid within the mastoid air cells bilaterally. Hasmukh Oakes MD Abdomen Ultrasound 11/23/16 Signed Impressions: Service Date/Time: Wednesday, November 23, 2016 19:33 - CONCLUSION: 1. Somewhat limited study. Proximal superior mesenteric artery appears patent. 2. Mildly elevated flow velocities in the celiac and hepatic arteries of doubtful clinical significance. Giovani Martinez MD GI Procedure 11/21/16 0000 Signed Impressions: Service Date/Time: Monday, November 21, 2016 10:44 - CONCLUSION: ERCP as above. Reymundo Wilburn MD FACR Physical Exam HEENT: Normocephalic; atraumatic; right eye prosthesis. intubated NGT with yellow drainage, no blood CHEST: CTA CARDIAC: RRR ABDOMEN: semifirm, bowels sounds are faint, dark stool in bag, dark maroon liquid stool seen in rectal tube. abd binder, midline incision. EXTREMITIES: No clubbing, cyanosis, or edema. SKIN: Normal; no rash; no jaundice. PLANT SPRAYER: intubated on vent (Radha Jamil) Assessment and Plan Plan ASSESSMENT - melena - yesterday pt began passing melanotic stool with clots, today all liquid dark stool in bag with dark maroon appearing liquid stool in rectal tube. no blood from NGT, yellowish drainage 150cc today. will do EGD to r/o UGIB. d/w [facility]. colonoscopy not feasible after surgery, ?flex sig not on blood thinners - anemia - was 14.4 on admission and has been trending down. received 1 x prbc yesterday and came up, drop today from 11.3 to 8.5 per RN pt did receive 4L fluid for oliguria. could be partly dilutional and also 2/2 above - cecal volvulus - s/p ex lap, right colectomy - thrombocytopenia - plt dropped from 130 to 88 today - leukocytosis - ID following - cholelithiasis, choledocholithiasis - s/p cholecystectomy. ERCP with stone extraction 11/21. - CVA, acute hypoxemic respiratory failure, JOSUE, systolic HF with RVR - per [facility] PLAN - await repeat HH - EGD saturday - obtain consent - hold TF after saturday night - Monitor labs - cont PPI - Surgery following - Repeat colonoscopy as outpatient - Supportive care Patient seen and examined by Dr. Morrison and myself and this note is written on his behalf. (Radha Jamil) Physician Comments Patient seen and examined Agree with above Continue with current supportive care Monitor labs Consider EGD tomorrow or Saturday (Isaac Morrison MD) Radha Jamil Dec 01, 2016 15:43 Isaac Morrison MD Dec 01, 2016 21:52
[2016-12-01 16:00] LABS: REVIEW FLAG FINAL
[2016-12-01 16:01] LABS: BICARBONATE 19.1 MEQ/L (21.0-32.0); POTASSIUM 3.1 MEQ/L (3.5-5.1)
[2016-12-01] MEDS: POTASSIUM CHLOR 40 MEQ PREMIX 100 ML IV PRN (16:14)
[2016-12-01] MEDS: fentaNYL DRIP 250 ML IV PRN (17:45)
[2016-12-01 21:16] LABS: C. DIFF EPI 027 PRESUMPTIVE NEGATIVE (NEGATIVE)
--- NOTE | 2016-12-01 21:48 | HHI.IDPN ---
Subjective Subjective Remarks delayed entry pt wass seen today around 1500 events noted Extubated yday Probably aspirated ERe-intubated On pressors, neosynephrine + Melena + liquid stool WBC up to 55 Antibiotics zosyn Lines Line sites with no e.o infection Past Medical History reviewed Allergies: Coded Allergies: No Known Allergies (Unverified , 11/24/16) Objective . Vital Signs Date Time Temp Pulse Resp B/P (MAP) Pulse Ox O2 Delivery O2 Flow Rate FiO2 12/01/16 20:00 98.7 82 18 100/55 (70) 98 12/01/16 20:00 50 12/01/16 20:00 82 12/01/16 18:00 80 12/01/16 17:48 79 96/49 12/01/16 16:42 97 50 12/01/16 16:00 76 12/01/16 16:00 50 12/01/16 16:00 98.9 76 18 103/50 (67) 97 12/01/16 14:00 78 12/01/16 13:24 99 50 12/01/16 12:30 83 83/44 12/01/16 12:07 100 60 12/01/16 12:00 76 12/01/16 12:00 50 12/01/16 12:00 98.4 76 18 96/48 (64) 100 12/01/16 10:00 82 12/01/16 09:01 100 60 12/01/16 08:15 99 60 12/01/16 08:00 92 12/01/16 08:00 97.8 92 18 96/49 (65) 97 12/01/16 08:00 60 12/01/16 06:00 110 12/01/16 04:29 95 60 12/01/16 04:00 60 12/01/16 04:00 117 12/01/16 04:00 99.6 117 18 101/52 (68) 95 12/01/16 02:17 112 104/51 12/01/16 02:00 117 12/01/16 01:45 101.5 114 18 99/53 96 12/01/16 01:00 114 102/54 12/01/16 00:05 119 102/54 12/01/16 00:04 98 60 12/01/16 00:02 101.7 114 18 95/46 97 12/01/16 00:00 120 12/01/16 00:00 101.7 120 18 96/46 (63) 97 12/01/16 00:00 60 11/30/16 23:50 125 98/55 11/30/16 23:47 101.7 124 18 92/53 98 11/30/16 23:45 124 92/53 11/30/16 23:40 122 94/48 11/30/16 23:35 127 96/52 11/30/16 23:30 122 86/50 11/30/16 23:25 120 95/46 11/30/16 23:20 122 81/44 11/30/16 23:15 119 73/42 11/30/16 23:10 124 84/45 11/30/16 22:00 127 12/01/16 12/01/16 12/02/16 15:00 23:00 07:00 Intake Total 3750 ml 941 ml Output Total 1500 ml Balance 3750 ml -559 ml Intake Oral 0 ml IV Total 3750 ml 941 ml Output Urine Total 350 ml Stool Total 950 ml Gastric Drainage Total 200 ml . Laboratory Tests Test 11/30/16 04:35 12/01/16 02:50 12/01/16 04:00 12/01/16 10:07 White Blood Count 22.5 TH/MM3 55.0 TH/MM3 42.6 TH/MM3 Red Blood Count 2.69 MIL/MM3 4.06 MIL/MM3 3.08 MIL/MM3 Hemoglobin 7.5 GM/DL 10.8 GM/DL 11.3 GM/DL 8.5 GM/DL Hematocrit 22.7 % 33.4 % 34.6 % 26.3 % Mean Corpuscular Volume 84.2 FL 85.2 FL 85.5 FL Mean Corpuscular Hemoglobin 27.9 PG 27.9 PG 27.5 PG Mean Corpuscular Hemoglobin Concent 33.1 % 32.7 % 32.2 % Red Cell Distribution Width 16.2 % 15.8 % 16.0 % Platelet Count 72 TH/MM3 130 TH/MM3 88 TH/MM3 Mean Platelet Volume 11.3 FL 12.2 FL 11.8 FL Neutrophils (%) (Auto) 89.4 % Lymphocytes (%) (Auto) 5.0 % Monocytes (%) (Auto) 5.1 % Eosinophils (%) (Auto) 0.3 % Basophils (%) (Auto) 0.2 % Neutrophils # (Auto) 20.1 TH/MM3 Lymphocytes # (Auto) 1.1 TH/MM3 Monocytes # (Auto) 1.1 TH/MM3 Eosinophils # (Auto) 0.1 TH/MM3 Basophils # (Auto) 0.0 TH/MM3 CBC Comment AUTO DIFF Differential Total Cells Counted 100 Neutrophils % (Manual) 77 % Band Neutrophils % 7 % Lymphocytes % 11 % Monocytes % 5 % Neutrophils # (Manual) 18.9 TH/MM3 Differential Comment FINAL DIFF MANUAL Platelet Estimate LOW Platelet Morphology Comment NORMAL Acanthocytes 1+ Keratocytes 1+ Test 12/01/16 15:30 Hemoglobin 8.7 GM/DL Hematocrit 26.1 % Laboratory Tests Test 11/30/16 04:35 12/01/16 04:00 12/01/16 07:30 12/01/16 15:30 Blood Urea Nitrogen 27 MG/DL 33 MG/DL 34 MG/DL Creatinine 0.98 MG/DL 1.75 MG/DL 1.60 MG/DL Random Glucose 115 MG/DL 95 MG/DL 117 MG/DL Total Protein 5.3 GM/DL 6.3 GM/DL Albumin 1.5 GM/DL 1.7 GM/DL Calcium Level 7.5 MG/DL 8.1 MG/DL 8.0 MG/DL Phosphorus Level 2.0 MG/DL 3.6 MG/DL Magnesium Level 1.7 MG/DL 2.2 MG/DL Alkaline Phosphatase 115 U/L 136 U/L Aspartate Amino Transf (AST/SGOT) 37 U/L 40 U/L Alanine Aminotransferase (ALT/SGPT) 28 U/L 26 U/L Total Bilirubin 0.6 MG/DL 0.9 MG/DL Sodium Level 143 MEQ/L 140 MEQ/L 140 MEQ/L Potassium Level 3.5 MEQ/L 3.3 MEQ/L 3.1 MEQ/L Chloride Level 113 MEQ/L 109 MEQ/L 111 MEQ/L Carbon Dioxide Level 23.6 MEQ/L 18.2 MEQ/L 19.1 MEQ/L Anion Gap 6 MEQ/L 13 MEQ/L 10 MEQ/L Estimat Glomerular Filtration Rate 54 ML/MIN 28 ML/MIN 31 ML/MIN Ammonia 58 MCMOL/L 37 MCMOL/L Total Creatine Kinase 446 U/L 340 U/L Creatine Kinase MB 4.0 NG/ML 2.6 NG/ML Creatine Kinase MB % 0.9 % 0.8 % Lactic Acid Level 3.3 mmol/L Test 12/01/16 18:23 Lactic Acid Level 1.4 mmol/L Microbiology Date/Time Source Procedure Growth Status 11/29/16 14:55 Blood Peripheral Aerobic Blood Culture - Preliminary NO GROWTH IN 2 DAYS Resulted 11/29/16 14:55 Blood Peripheral Anaerobic Blood Culture - Final QNS - SEE AEROBE REPORT Resulted 11/29/16 14:50 Blood Peripheral Aerobic Blood Culture - Preliminary NO GROWTH IN 2 DAYS Resulted 11/29/16 14:50 Blood Peripheral Anaerobic Blood Culture - Preliminary NO GROWTH IN 2 DAYS Resulted 11/30/16 23:00 Stool Stool Stool Occult Blood (MAXINE) - Final HEMOCCULT POSITIVE Complete Imaging Last Impressions Chest X-Ray 12/01/16 0600 Signed Impressions: Service Date/Time: Thursday, December 01, 2016 05:48 - CONCLUSION: Resolved infiltrates in the right lower lung and persistent infiltrates in the left lower lung. Shant Robertson MD Chest CT 12/01/16 0000 Signed Impressions: Service Date/Time: Thursday, December 01, 2016 08:13 - CONCLUSION: 1. Severe emphysema with bilateral airspace consolidation in a patchy distribution involving the upper and lower lobes but most severe in the left lower lobe. There is also a trace left pleural effusion. Imaging findings are nonspecific but infection or aspiration should be considerations. 2. Coronary artery calcification. Giovani Lopez MD Abdomen/Pelvis CT 12/01/16 0000 Signed Impressions: Service Date/Time: Thursday, December 01, 2016 08:13 - CONCLUSION: 1. No acute finding is identified to explain the blood in stool. There are postsurgical findings suggesting prior right hemicolectomy. Colon contains a fluid and air and there is sigmoid diverticulosis. 2. Small volume of free fluid in the abdomen and pelvis. Also, there is mild diffuse subcutaneous edema. Giovani Lopez MD Head CT 11/27/16 0000 Signed Impressions: Service Date/Time: Sunday, November 27, 2016 14:47 - CONCLUSION: 1. Questionable edema or subacute infarct in the left parietal deep white matter. This would be better evaluated with MRI. No intracranial hemorrhage or significant mass effect. Romario Kauffman MD Brain MRI 11/27/16 0000 Signed Impressions: Service Date/Time: Sunday, November 27, 2016 18:10 - CONCLUSION: 1. Moderate periventricular and subcortical white matter small vessel ischemic changes bilaterally. 2. 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 3. No acute infarct, acute hemorrhage, mass effect or extra-axial fluid collection. 4. Fluid level within sphenoid sinuses. 5. Fluid within the mastoid air cells bilaterally. Hasmukh Oakes MD Abdomen Ultrasound 11/23/16 0000 Signed Impressions: Service Date/Time: Wednesday, November 23, 2016 19:33 - CONCLUSION: 1. Somewhat limited study. Proximal superior mesenteric artery appears patent. 2. Mildly elevated flow velocities in the celiac and hepatic arteries of doubtful clinical significance. Giovani Martinez MD GI Procedure 11/21/16 0000 Signed Impressions: Service Date/Time: Monday, November 21, 2016 10:44 - CONCLUSION: ERCP as above. Reymundo Wilburn MD FACR Physical Exam CONSTITUTIONAL/GENERAL: This is an adequately nourished patient, in no apparent distress. sedated int'd on vent TUBES/LINES/DRAINS: SKIN: No jaundice, rashes, or lesions. Skin temperature appropriate. Not diaphoretic. EYES: Pupils equal and round and reactive. Fundi not examined. CARDIOVASCULAR: Regular rate and rhythm + 2/6 systolic murmur, no gallops, or rubs. No JVD. Peripheral pulses symmetric. Well perfused perifery RESPIRATORY/CHEST: Symmetric, unlabored respirations. Rhonchi to auscultation. Breath sounds equal bilaterally. No wheezes, rales, or rhonchi. GASTROINTESTINAL: distended abdomen with clean incision Bowel sounds hypoactive dignishield in place with liquid dark stool GENITOURINARY: Without palpable bladder distension. Sanchez catheter in place with small amount of dark yellow urine MUSCULOSKELETAL: Extremities without clubbing, , + 2-3 + edema. +cyanosis feet, fingers NEUROLOGICAL: sedated PSYCHIATRIC: unable to assess Assessment & Plan Remarks Volvulus sp colon resection and cholecystectomy path benign:cecum volvulus and chronic calculous cholecstitis Sepsis from intraabdominal source (leukocytosis, leukemoid reaction, hypoxia, JOSUE) leukocytosis, leukemoid reaction: even worse today > 55K persistent severe leukocytosis Pt and her and othe rfamily members deny that pt ever had problems with PCN. Pt states she was given PCN many years ago and it was uneventful Gallstones sp ERCP 2 yrs ago ARF: improving New problem : aspiration, ileus Recurrent VDRF - sp reintubation Melena: CT unremarkable Rec: fu WBC cont zosyn; adjust per GFR cont diflucan rechk blood clx dw Sharon Warren MD Dec 01, 2016 21:48
[2016-12-01 22:18] LABS: HEMATOCRIT 26.7 % (35.0-46.0)
[2016-12-01 22:36] LABS: REVIEW FLAG FINAL
[2016-12-02] VITALS (18 sets, daily range): BP systolic 94–108; BP diastolic 50–54; PULSE 71–85; RESP 18; TEMP 97.5–99.4; O2SAT 93–97
[2016-12-02] MEDS: PROPOFOL 1000 MG/100 ML INJ 100 ML IV PRN ×3 (01:26→23:26)
[2016-12-02] MEDS: PIPERACIL-TAZO 2.25 GM PREMIX 50 ML IV SCH ×4 (02:54→21:31)
[2016-12-02 03:56] LABS: AUTOMATED NEUTROPHIL # 32.8 TH/MM3 (1.8-7.7); BASOPHIL # 0.1 TH/MM3 (0-0.2); BASOPHIL % 0.2 % (0.0-2.0); EOSINOPHIL # 0.1 TH/MM3 (0-0.4); EOSINOPHIL % 0.2 % (0.0-4.0); HEMATOCRIT 26.4 % (35.0-46.0); LYMPH % 3.1 % (9.0-44.0); LYMPHOCYTE # 1.1 TH/MM3 (1.0-4.8); MEAN CELL VOLUME 84.8 FL (80.0-100.0); MEAN CORPUSCULAR HEMOGLOBIN 27.7 PG (27.0-34.0); MEAN CORPUSCULAR HGB CONC 32.6 % (32.0-36.0); MONO % 2.7 % (0.0-8.0); NEUT % 93.8 % (16.0-70.0); PLATELET COUNT 111 TH/MM3 (150-450); RED BLOOD COUNT 3.11 MIL/MM3 (4.00-5.30); RED CELL DISTRIBUTION WIDTH 16.4 % (11.6-17.2)
[2016-12-02] MEDS: INSULIN NovoLIN REGULAR SUPPLEMENTAL SCALE SQ SCH ×6 (04:00→20:15)
[2016-12-02 04:01] LABS: HEMO FLAGS AUTO DIFF
[2016-12-02] MEDS: RESP: ALBUTEROL 2.5 MG/IPRATROPIUM 0.5 MG NEB (SCH) NEB ×4 (04:03→19:36)
[2016-12-02 04:09] LABS: ANION GAP 14 MEQ/L (5-15); AST (GOT) 31 U/L (15-37); BICARBONATE 15.4 MEQ/L (21.0-32.0); BLOOD UREA NITROGEN 33 MG/DL (7-18); CHLORIDE 113 MEQ/L (98-107); GLOMERULAR FILTRATION RATE 28 ML/MIN (>89); SODIUM (NA) 142 MEQ/L (136-145)
[2016-12-02 04:13] LABS: ALKALINE PHOSPHATASE 94 U/L (45-117); ALT (GPT) 19 U/L (10-53); TOTAL BILIRUBIN ADULT 0.8 MG/DL (0.2-1.0)
[2016-12-02] MEDS: POTASSIUM CHLOR 40 MEQ PREMIX 100 ML IV PRN (04:31)
[2016-12-02] MEDS: FREE WATER G-TUBE SCH ×3 (05:23→21:33)
[2016-12-02] MEDS: METOCLOPRAMIDE HCL 10 MG/2 ML VIAL IV PUSH SCH ×3 (05:23→21:32)
[2016-12-02] MEDS: DILTIAZEM HCL 30 MG TAB PO SCH ×4 (05:24→15:55)
[2016-12-02] MEDS: ARTIFICIAL TEARS OPTH SOLN 15 ML BTL LEFT EYE SCH ×3 (05:24→21:33)
[2016-12-02 05:39] LABS: BANDS 22 % (0-6); CORRECTED NUCLEATED RBC 1 /100 WBC (0-0); EOSINOPHILS 4 % (0-4); KERATOCYTES OCC (NORMAL); NEUTROPHIL # MANUAL DIFF 31.9 TH/MM3 (1.8-7.7); OVALOCYTES 1+ (NORMAL); POLYS (SEG NEUTROPHILS) 69 % (16-70); WBC DIFF SAMPLE 100
[2016-12-02 05:42] LABS: PLATELET ESTIMATE SMEAR LOW (NORMAL); PLATELET MORPHOLOGY ENLARGED (NORMAL); SCAN/DIFF FINAL DIFF MANUAL
[2016-12-02 05:43] LABS: ACANTHOCYTES 1+ (NORMAL)
[2016-12-02] MEDS: URSODIOL 300 MG CAP PO SCH ×2 (07:50→21:32)
[2016-12-02] MEDS: PANTOPRAZOLE SODIUM 40 MG VIAL IV PUSH SCH ×2 (07:51→21:32)
[2016-12-02] MEDS: SODIUM CHLORIDE 0.9% FLUSH 10 ML FLUSH IV FLUSH SCH ×2 (07:51→21:32)
[2016-12-02] MEDS: LACTULOSE SYRUP 20 GM/30 ML CUP NG SCH ×2 (07:51→21:00)
[2016-12-02] MEDS: MAGNESIUM OXIDE 400 MG TAB PO SCH (07:51)
[2016-12-02] MEDS: SODIUM CHLOR 0.9% 1000 ML INJ 1,000 ML IV SCH (07:52)
--- NOTE | 2016-12-02 10:46 | HHI.CCPN ---
Subjective Remarks/Hospital Course 86 y/o woman developed worsening SOB this afternoon associated with marked leukocytosis. Recent biliary instrumentation for obstruction 48 hours ago and probable sepsis. On appropriate antibiotics. Requiring NRBM now for oxygenation to 97%. Visibly labored breathing. CXR with interstitial edema. EF 35% 2014. Move to ICU. 11/24: Patient s/p colonoscopy this morning which showed mod. diverticulosis in sigmoid colon and hemorrhoids. Remains on NRB with good sats. Afebrile. Cr increased 1.51 from 1.08. 11/25 Patient s/p Ex lap, right colectomy and cholecystectomy. She kept intubated postop went into Afib with RVR overnight and placed on Cardizem drip 10mg/hr. 11/26 Patient is sedated with Diprivan, fentanyl and intubated. Afebrile. On Cardizem drip 5mg/hr. renal function worse with Cr: 2.01 from 1.89, UOP: 1L in 24 hrs 11/27 Patient remains sedated and intubated. Off Cardizem drip. Renal function is improving with Cr: 1.67 from 2.01. Afebrile. 11/28 remains intubated sedated. Heart rate controlled. Creat 1.26. Hb 6.5. Status post 2 units PRBC today. WBC count decreased from 40,000-26,000. Creat improving 1.26 11/29: Patient A. fib with RVR currently on diltiazem drip at 15 mg an hour for rate control. Hemodynamically stable. 11/30: Heart rate better controlled today. Diltiazem drip discontinued overnight. Heart rate currently in the 70s. Tolerated PSV trials yesterday. We'll attempt extubation today if tolerates. No bowel movement. Tolerating tube feeds at 30 cc an hour 12/01: Tmax 101.7. Failed extubation trial after 1 hour yesterday. Persistently hypotensive post intubation. Transfuse 1 unit hemoglobin yesterday for melena per RN. Hemoglobin went from 7.5-11.3. CVP is 12. Enoxaparin will be held. CT thorax, abdomen and pelvis performed now. Lactate pending. Serial hemoglobins. GI consult for EGD Subjective 12/02: Objective Vital Signs Date Time Temp Pulse Resp B/P (MAP) Pulse Ox O2 Delivery O2 Flow Rate FiO2 12/02/16 10:31 96 40 12/02/16 10:00 84 12/02/16 08:00 98.9 18 97/54 (68) 11/30/16 14:30 Non-Rebreather 12 Intake and Output 12/02/16 12/02/16 12/03/16 08:00 16:00 00:00 Intake Total 1501 ml 50 ml Output Total 2250 ml Balance -749 ml 50 ml Result Diagram: 12/02/16 0330 12/02/16 0330 Other Results Microbiology Date/Time Source Procedure Growth Status 11/29/16 14:55 Blood Peripheral Aerobic Blood Culture - Preliminary NO GROWTH IN 2 DAYS Resulted 11/29/16 14:55 Blood Peripheral Anaerobic Blood Culture - Final QNS - SEE AEROBE REPORT Resulted 11/30/16 23:00 Stool Stool Stool Occult Blood (MAXINE) - Final HEMOCCULT POSITIVE Complete Imaging Last Impressions Chest X-Ray 12/01/16 0600 Signed Impressions: Service Date/Time: Thursday, December 01, 2016 05:48 - CONCLUSION: Resolved infiltrates in the right lower lung and persistent infiltrates in the left lower lung. Shant Robertson MD Chest CT 12/01/16 0000 Signed Impressions: Service Date/Time: Thursday, December 01, 2016 08:13 - CONCLUSION: 1. Severe emphysema with bilateral airspace consolidation in a patchy distribution involving the upper and lower lobes but most severe in the left lower lobe. There is also a trace left pleural effusion. Imaging findings are nonspecific but infection or aspiration should be considerations. 2. Coronary artery calcification. Giovani Lopez MD Abdomen/Pelvis CT 12/01/16 0000 Signed Impressions: Service Date/Time: Thursday, December 01, 2016 08:13 - CONCLUSION: 1. No acute finding is identified to explain the blood in stool. There are postsurgical findings suggesting prior right hemicolectomy. Colon contains a fluid and air and there is sigmoid diverticulosis. 2. Small volume of free fluid in the abdomen and pelvis. Also, there is mild diffuse subcutaneous edema. Giovani Lopez MD Head CT 11/27/16 0000 Signed Impressions: Service Date/Time: Sunday, November 27, 2016 14:47 - CONCLUSION: 1. Questionable edema or subacute infarct in the left parietal deep white matter. This would be better evaluated with MRI. No intracranial hemorrhage or significant mass effect. Romario Kauffman MD Brain MRI 11/27/16 0000 Signed Impressions: Service Date/Time: Sunday, November 27, 2016 18:10 - CONCLUSION: 1. Moderate periventricular and subcortical white matter small vessel ischemic changes bilaterally. 2. 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 3. No acute infarct, acute hemorrhage, mass effect or extra-axial fluid collection. 4. Fluid level within sphenoid sinuses. 5. Fluid within the mastoid air cells bilaterally. Hasmukh Oakes MD Abdomen Ultrasound 11/23/16 0000 Signed Impressions: Service Date/Time: Wednesday, November 23, 2016 19:33 - CONCLUSION: 1. Somewhat limited study. Proximal superior mesenteric artery appears patent. 2. Mildly elevated flow velocities in the celiac and hepatic arteries of doubtful clinical significance. Giovani Martinez MD GI Procedure 11/21/16 0000 Signed Impressions: Service Date/Time: Monday, November 21, 2016 10:44 - CONCLUSION: ERCP as above. Reymundo Wilburn MD FACR Objective Remarks GENERAL: 86 yo female, critically ill currently orotracheally intubated SKIN: Warm and dry. No rash HEAD: Normocephalic. EYES: No scleral icterus. No injection or drainage. 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 NECK: Supple, trachea midline. No JVD or lymphadenopathy. CARDIOVASCULAR: Tachycardia, IR S1, S2 no S4. Faint 2/6 systolic murmur left lower sternal border/right upper sternal border RESPIRATORY: Breath sounds equal bilaterally. No accessory muscle use. GASTROINTESTINAL: Abdomen soft, tenderness on palpation. MUSCULOSKELETAL: Trace peripheral edema Neuro: Currently on propofol for sedation. Withdraws all 4 extremities. Was following commands yesterday post extubation. Date of Insertion: Nov 24, 2016 Line: Central Venous Catheter Side: Right Location: Internal, Jugular A/P Assessment and Plan Neuro/Psych: History of chronic bilateral basal ganglia CVA Acute toxic metabolic encephalopathy Prosthetic left eye Currently on propofol at 20 mics grams per kilogram per minute and/fentanyl drip at 100 mcg an hour infusion for sedation/analgesia while intubated Goal of RASS -2 Daily sedation vacation. MRI brain 11/27 showed moderate small vessel disease, old bilateral basal ganglia CVA however no acute findings. Ammonia level currently [address] Roque - neurology Continue amitriptyline 10 mg at night Pulm: Acute hypoxemic respiratory failure History of COPD ACV 15/700/5/40 Ventilator bundle Albuterol/ipratropium aerosols every 6 hours with albuterol aerosols every 2 hours as needed for dyspnea Continue with vent support and maintain sat >92% SBT daily as adelina. Not likely today. Tolerated extubation 1.5 hours a 11/30. Likely will need tracheostomy CT chest 11/20: Severe underlying emphysema. Status post median sternotomy with postsurgical changes. CT thorax 11/30 revealed severe emphysema. Bilateral upper and lower lobe infiltrates/glass ground likely aspiration. Follow-up a.m. chest x-ray 12/01 revealed persistent bilateral lower lobe infiltrates CV: Systolic heart failure - likely chronic ejection fraction 40% Severe sepsis Atrial Fibrillation w/ RVR History of hypertension Severe pulmonary hypertension likely group 3 secondary to COPD PAD history of bilateral CEA Monitor HR and BP keep MAP>65mmHg Switch from phenylephrine to norepinephrine due to alpha-1 arterial vasoconstriction Will need to anticoagulated fully if cardioversion attempted with JEB Anticoagulation currently on hold due to melanoma GI evaluation Will add digoxin for attempted rate control. See orders. Check level in a.m. Cardizem drip if needed for rate control Echo from 11/26 EF 40%, mild MR. Moderate AR/TR. Severe pulmonary HTN (PAP 70mmHg) On ASA 81 mg daily, this will be held in light of GI bleeding Holding Procardia XL 60mg daily as cannot be crushed. Atorvastatin 80 mg daily held ( elevated LFT's) Currently on Cilostazol at 100 mg daily for claudication this will be held in light of current bleeding RENAL/: Acute kidney injury -creatinine currently 1.7 Hypokalemia Monitor renal function, I/O's, avoid nephrotoxins renal is following- Dr. Ferrari Free water 200ml Q8, monitor sodium level ICU electrolyte protocol initiated Received 80 mEq KCl IV 1. Recheck at 1600 CVP is 12 GI: Cecal Volvulus s/p Exp lap, right colectomy and cholecystectomy 11/24 S/P biliary manipulation ERCP for obstructed duct with stones and sludge 11/21. Gastroesophageal reflux disease Transaminitis Hyperammonia Constipation Monitor LFT; Glucerna 1.5@ 45 cc an hour currently on hold in light of melena Cecal Volvulus s/p Exp lap, right colectomy and cholecystectomy 11/24 s/p Colonoscopy 11/24 showed Diverticulosis in sigmoid colon, internal and external hemorrhoids CT abd/pelvis: Bowel gas pattern most compatible a cecal volvulus and does appear to be contributing to associated obstruction. Mild head pancreatitis possible in the proper clinical setting. Patient has recently had ERCP and bile duct stone extraction. Bibasilar pneumonia developing. Tiny pleural effusion on the right US abdomen: Proximal superior mesenteric artery appears patent. Initiate Xifaxan 40 mg by tube every 8 hours and lactulose 30 cc twice a day. Recheck ammonia level in AM. Decreased to 38 Consult gastroenterology for possible EGD Discussed with Dr. Polanco yesterday 12/01 On ursodiol 300 mg by mouth was daily resume when clinically indicated On metoclopramide per Dr. Polanco for bowel prokinetic medication ID: Continue with abx per ID (piperacillin/tazobactam/Diflucan) Monitor for signs of infections ( Fever, WBC) Pertinent cultures BC 11/24: NGTD . Blood cultures 11/29 - pending C. difficile pending WBC currently decreased from 55,000 35,000 Heme: Leukocytosis Normocytic anemia Thrombocytopenia Monitor CBC Status post 2 units PRBCs 11/28. 1 unit PRBCs 12/01 Hemoccult stool 11/30 positive Endo: SSI with accuchecks GI prophylaxis- Pantoprazole 40mg IV twice a day DVT prophylaxis- Enoxaparin 30mg daily to be held in light of GI bleed Lines: Right IJ placed in OR 11/24 Critical Care: The total critical care time was 30 minutes. Time to perform other separately billable procedures was not included in the critical care time. Jean Pierre Oh MD Dec 02, 2016 10:46
[2016-12-02] MEDS: DILTIAZEM INJ 125 MG in SODIUM CHLORIDE 0.9% INJ 100 ML IV PRN (10:57)
[2016-12-02] MEDS ORDERED: NOREPINEPHRINE INJ 4 MG in SODIUM CHLOR 0.9% 250 ML INJ 246 ML IV PRN (11:00)
[2016-12-02] MEDS ORDERED: TERBUTALINE INJ 1 MG/ML AMP SQ PRN (11:00)
[2016-12-02] MEDS ORDERED: DIGOXIN 0.5 MG/2 ML VIAL IV PUSH ONE ×2 (11:15→17:15)
--- NOTE | 2016-12-02 11:16 | HHI.GIFU ---
Subjective Remarks Lying in bed in no apparent distress. Rectal tube with liquid green stool drainage. RN reports no further dark stools or blood clots noted in rectal tube today. (Bessy Hernandez) Objective Vitals I&O Vital Signs Date Time Temp Pulse Resp B/P (MAP) Pulse Ox O2 Delivery O2 Flow Rate FiO2 12/02/16 10:31 96 40 12/02/16 10:00 84 12/02/16 08:10 96 40 12/02/16 08:00 80 12/02/16 08:00 98.9 85 18 97/54 (68) 96 12/02/16 08:00 50 12/02/16 06:00 80 12/02/16 06:00 80 101/53 12/02/16 06:00 72 101/53 (69) 12/02/16 05:00 85 100/50 12/02/16 04:04 94 40 12/02/16 04:00 40 12/02/16 04:00 98.9 74 18 94/50 (65) 94 12/02/16 04:00 74 12/02/16 02:00 76 12/02/16 01:15 70 91/47 12/02/16 00:00 72 12/02/16 00:00 72 108/54 (72) 12/02/16 00:00 40 12/02/16 00:00 99.1 72 18 108/54 (72) 95 12/01/16 23:45 72 103/52 12/01/16 22:15 74 100/50 12/01/16 22:01 98 40 12/01/16 22:00 73 12/01/16 20:00 98.7 82 18 100/55 (70) 98 12/01/16 20:00 50 12/01/16 20:00 82 12/01/16 19:30 79 103/54 12/01/16 18:00 80 12/01/16 17:48 79 96/49 12/01/16 16:42 97 50 12/01/16 16:00 76 12/01/16 16:00 50 12/01/16 16:00 98.9 76 18 103/50 (67) 97 12/01/16 14:00 78 12/01/16 13:24 99 50 12/01/16 12:30 83 83/44 9/23/17 12:07 100 60 12/01/16 12:00 76 12/01/16 12:00 50 12/01/16 12:00 98.4 76 18 96/48 (64) 100 I/O 12/01/16 12/01/16 12/01/16 12/02/16 12/02/16 12/02/16 07:00 15:00 23:00 07:00 15:00 23:00 Intake Total 1563 ml 3750 ml 991 ml 1501 ml 50 ml Output Total 750 ml 1500 ml 2250 ml Balance 813 ml 3750 ml -509 ml -749 ml 50 ml Intake Oral 0 ml IV Total 748 ml 3750 ml 991 ml 1501 ml 50 ml Packed Cells 350 ml Blood Product IV Normal Saline Flush 65 ml Other 400 ml Output Urine Total 150 ml 350 ml 350 ml Stool Total 600 ml 950 ml 1600 ml Gastric Drainage Total 200 ml 300 ml # Bowel Movements 3 Laboratory Laboratory Tests Test 12/01/16 12:36 12/01/16 15:30 12/01/16 17:00 12/01/16 18:23 Urine Eosinophils NONE SEEN Urine Random Creatinine 80.9 Urine Random Sodium 11 Hemoglobin 8.7 Hematocrit 26.1 Blood Urea Nitrogen 34 Creatinine 1.60 Random Glucose 117 Calcium Level 8.0 Sodium Level 140 Potassium Level 3.1 Chloride Level 111 Carbon Dioxide Level 19.1 Anion Gap 10 Estimat Glomerular Filtration Rate 31 Stool C. difficile Toxin (PCR) NEGATIVE Stl C. difficile Toxin Epiderm 027 PRESUMPTIVE NEGATIVE Lactic Acid Level 1.4 Test 12/01/16 22:00 12/02/16 03:30 Hemoglobin 8.8 8.6 Hematocrit 26.7 26.4 White Blood Count 35.0 Red Blood Count 3.11 Mean Corpuscular Volume 84.8 Mean Corpuscular Hemoglobin 27.7 Mean Corpuscular Hemoglobin Concent 32.6 Red Cell Distribution Width 16.4 Platelet Count 111 Mean Platelet Volume 11.8 Neutrophils (%) (Auto) 93.8 Lymphocytes (%) (Auto) 3.1 Monocytes (%) (Auto) 2.7 Eosinophils (%) (Auto) 0.2 Basophils (%) (Auto) 0.2 Neutrophils # (Auto) 32.8 Lymphocytes # (Auto) 1.1 Monocytes # (Auto) 1.0 Eosinophils # (Auto) 0.1 Basophils # (Auto) 0.1 CBC Comment AUTO DIFF Differential Total Cells Counted 100 Neutrophils % (Manual) 69 Band Neutrophils % 22 Lymphocytes % 4 Monocytes % 1 Eosinophils % 4 Neutrophils # (Manual) 31.9 Nucleated Red Blood Cells 1 Differential Comment FINAL DIFF MANUAL Platelet Estimate LOW Platelet Morphology Comment ENLARGED Ovalocytes 1+ Acanthocytes 1+ Keratocytes OCC Blood Urea Nitrogen 33 Creatinine 1.73 Random Glucose 106 Total Protein 5.7 Albumin 2.0 Calcium Level 7.5 Phosphorus Level 4.6 Magnesium Level 2.0 Alkaline Phosphatase 94 Aspartate Amino Transf (AST/SGOT) 31 Alanine Aminotransferase (ALT/SGPT) 19 Total Bilirubin 0.8 Sodium Level 142 Potassium Level 3.0 Chloride Level 113 Carbon Dioxide Level 15.4 Anion Gap 14 Estimat Glomerular Filtration Rate 28 Lactic Acid Level 1.4 Ammonia 15 Date/Time Source Procedure Growth Status 11/29/16 14:55 Blood Peripheral Aerobic Blood Culture - Preliminary NO GROWTH IN 2 DAYS Resulted 11/29/16 14:55 Blood Peripheral Anaerobic Blood Culture - Final QNS - SEE AEROBE REPORT Resulted 11/30/16 23:00 Stool Stool Stool Occult Blood (MAXINE) - Final HEMOCCULT POSITIVE Complete Imaging Last Impressions Chest X-Ray 12/01/16 0600 Signed Impressions: Service Date/Time: Thursday, December 01, 2016 05:48 - CONCLUSION: Resolved infiltrates in the right lower lung and persistent infiltrates in the left lower lung. Shant Robertson MD Chest CT 12/01/16 0000 Signed Impressions: Service Date/Time: Thursday, December 01, 2016 08:13 - CONCLUSION: 1. Severe emphysema with bilateral airspace consolidation in a patchy distribution involving the upper and lower lobes but most severe in the left lower lobe. There is also a trace left pleural effusion. Imaging findings are nonspecific but infection or aspiration should be considerations. 2. Coronary artery calcification. Giovani Lopez MD Abdomen/Pelvis CT 12/01/16 0000 Signed Impressions: Service Date/Time: Thursday, December 01, 2016 08:13 - CONCLUSION: 1. No acute finding is identified to explain the blood in stool. There are postsurgical findings suggesting prior right hemicolectomy. Colon contains a fluid and air and there is sigmoid diverticulosis. 2. Small volume of free fluid in the abdomen and pelvis. Also, there is mild diffuse subcutaneous edema. Giovani Lopez MD Head CT 11/27/16 0000 Signed Impressions: Service Date/Time: Sunday, November 27, 2016 14:47 - CONCLUSION: 1. Questionable edema or subacute infarct in the left parietal deep white matter. This would be better evaluated with MRI. No intracranial hemorrhage or significant mass effect. Romario Kauffman MD Brain MRI 11/27/16 0000 Signed Impressions: Service Date/Time: Sunday, November 27, 2016 18:10 - CONCLUSION: 1. Moderate periventricular and subcortical white matter small vessel ischemic changes bilaterally. 2. 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 3. No acute infarct, acute hemorrhage, mass effect or extra-axial fluid collection. 4. Fluid level within sphenoid sinuses. 5. Fluid within the mastoid air cells bilaterally. Hasmukh Oakes MD Abdomen Ultrasound 11/23/16 0000 Signed Impressions: Service Date/Time: Wednesday, November 23, 2016 19:33 - CONCLUSION: 1. Somewhat limited study. Proximal superior mesenteric artery appears patent. 2. Mildly elevated flow velocities in the celiac and hepatic arteries of doubtful clinical significance. Giovani Martinez MD GI Procedure 11/21/16 0000 Signed Impressions: Service Date/Time: Monday, November 21, 2016 10:44 - CONCLUSION: ERCP as above. Reymundo Wilburn MD FACR Physical Exam HEENT: Normocephalic; atraumatic; right eye prosthesis. Orotracheally intubated. CHEST: CTA CARDIAC: Tachycardia. Irregular rhythm. ABDOMEN: Obese, mild distention, diffuse TTP. bowels sounds are faint. Rectal bag/tubing with liquid green stool. EXTREMITIES: Trace peripheral edema. SKIN: Normal; no rash; no jaundice. [employer]: Sedated. (Bessy Hernandez) Assessment and Plan Plan ASSESSMENT - Melena, Passing melanotic stool with clots on 11/30 and on 12/01 all liquid dark stool in bag with dark maroon appearing liquid stool in rectal tube. No blood from NGT, yellowish drainage. Colonoscopy not feasible after surgery , ?flex sig. Plan to do EGD to r/o UGIB. - Anemia - was 14.4 on admission and has been trending down. Received PRBC x 1 on 11/30 and came up, drop 12/01 from 11.3 to 8.5. - Cecal volvulus - s/p ex lap, right colectomy - Thrombocytopenia - Platelets dropped from 130 to 88 12/01 - Leukocytosis - ID following - Cholelithiasis, choledocholithiasis - s/p cholecystectomy. ERCP with stone extraction 11/21. - CVA, acute hypoxemic respiratory failure, JOSUE, systolic HF with RVR - per CCM 12/02/16--Rectal tube/bag with liquid green stool. HH 8.6/04/07. Platelets 111. WBC 35. PLAN - EGD Saturday - Hold TF at [facility] [place] - Monitor labs - Monitor HH, transfuse as necessary - Continue PPI - GS following - Repeat colonoscopy as outpatient - Supportive care - Further recommendations to follow based on results of above Patient seen and examined by Dr. Morrison and myself and this note is written on his behalf. (Bessy Hernandez) Physician Comments Patient seen and examined Agree with above Continue with current supportive care And monitor labs We will proceed with an EGD tomorrow this was discussed with the patient start her and she is agreeable (Isaac Morrison MD) Bessy Hernandez Dec 02, 2016 11:16 Isaac Morrison MD Dec 02, 2016 22:15
--- NOTE | 2016-12-02 11:18 | HHI.NPPN ---
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 Patient also underwent repeat ERCP for obstructed bile duct November 21, 2016. Patient noted to have had a serum creatinine level 0.8 15 September 2016. On presentation creatinine level at this institution 1.59 and has now deteriorated to 2.01. Patient in the ICU with development of respiratory insufficiency and worsening leukocytosis. Patient unable to provide any history secondary to her clinical condition. Interval History Overall remains same. Still intubated. Marquis being decreased. UOP marginal, however, significant stool and gastric output Review of Systems General General Remarks Unable to obtain 2/2 to clinical condition Objective Data Data 12/02/16 12/03/16 19:00 07:00 Intake Total 50 ml Balance 50 ml IV Total 50 ml Vital Signs Date Time Temp Pulse Resp B/P (MAP) Pulse Ox O2 Delivery O2 Flow Rate FiO2 12/02/16 10:57 84 97/52 12/02/16 10:31 96 40 12/02/16 10:00 84 12/02/16 08:10 96 40 12/02/16 08:00 80 12/02/16 08:00 98.9 85 18 97/54 (68) 96 12/02/16 08:00 50 12/02/16 06:00 80 12/02/16 06:00 80 101/53 12/02/16 06:00 72 101/53 (69) 12/02/16 05:00 85 100/50 12/02/16 04:04 94 40 12/02/16 04:00 40 12/02/16 04:00 98.9 74 18 94/50 (65) 94 12/02/16 04:00 74 12/02/16 02:00 76 12/02/16 01:15 70 91/47 12/02/16 00:00 72 12/02/16 00:00 72 108/54 (72) 12/02/16 00:00 40 12/02/16 00:00 99.1 72 18 108/54 (72) 95 12/01/16 23:45 72 103/52 12/01/16 22:15 74 100/50 12/01/16 22:01 98 40 12/01/16 22:00 73 12/01/16 20:00 98.7 82 18 100/55 (70) 98 12/01/16 20:00 50 12/01/16 20:00 82 12/01/16 19:30 79 103/54 12/01/16 18:00 80 12/01/16 17:48 79 96/49 12/01/16 16:42 97 50 12/01/16 16:00 76 12/01/16 16:00 50 12/01/16 16:00 98.9 76 18 103/50 (67) 97 12/01/16 14:00 78 12/01/16 13:24 99 50 12/01/16 12:30 83 83/44 12/01/16 12:07 100 60 12/01/16 12:00 76 12/01/16 12:00 50 12/01/16 12:00 98.4 76 18 96/48 (64) 100 -: 12/02/16 0330 12/02/16 0330 Medication Review Current Medications Medications (Trade) Dose Ordered Sig/Jazzmine Route Start Time Stop Time Status Last Admin (NS Flush) 2 ml BID IV FLUSH 11/20/16 21:00 12/01/16 20:11 (Zofran Inj) 4 mg Q6H PRN IVP 11/20/16 16:15 (Narcan Inj) 0.4 mg UNSCH PRN IV 11/20/16 16:15 (Milk Of Magnesia Liq) 30 ml Q12H PRN PO 11/20/16 16:15 (Lipitor) 80 mg HS PO 11/20/16 21:00 Future Hold 11/23/16 20:42 (Actigall) 300 mg Q12HR PO 11/22/16 21:00 12/02/16 07:50 (D50w (Vial) Inj) 50 ml UNSCH PRN IV 11/24/16 12:15 (Glucagon Inj) 1 mg UNSCH PRN OTHER 11/24/16 12:15 (NovoLIN R SUPPLEMENTAL SCALE) 1 Q4H SQ 11/24/16 12:15 11/26/16 04:12 Propofol 100 ml @ 1.89 mls/hr TITRATE PRN IV 11/25/16 07:30 12/02/16 10:35 Piperacillin Sod/ Tazobactam Sod 50 ml @ 100 mls/hr Q6H IV 11/25/16 09:00 12/02/16 07:52 Fentanyl Citrate 250 ml @ 5 mls/hr TITRATE PRN IV 11/25/16 16:15 12/01/16 17:45 (Tylenol 650 Mg/ 20 ml Liq) 650 mg Q6H PRN OG-TUBE 11/29/16 08:30 11/30/16 23:54 (Albuterol Neb) 2.5 mg Q2HR NEB PRN NEB 11/29/16 08:30 (Tears Naturale Opth Soln) 1 drop Q8HR LEFT EYE 11/29/16 14:00 12/02/16 05:24 (Reglan Inj) 5 mg Q8HR IV PUSH 11/29/16 14:00 12/02/16 05:23 Fluconazole/ Sodium Chloride 200 ml @ 100 mls/hr Q24H IV 11/29/16 13:00 12/01/16 12:53 (Cardizem) 30 mg Q6HR PO 11/29/16 18:00 12/02/16 05:24 Potassium Chloride 100 ml @ 50 mls/hr Q2H PRN IV 11/30/16 07:30 12/02/16 04:31 Potassium Chloride 100 ml @ 50 mls/hr Q2H PRN IV 11/30/16 07:30 (K-Lyte Cl Eff) 50 meq UNSCH PRN PO 11/30/16 07:30 Potassium Chloride 100 ml @ 25 mls/hr UNSCH PRN IV 11/30/16 07:30 Potassium Chloride 100 ml @ 50 mls/hr Q2H PRN IV 11/30/16 07:30 Magnesium Sulfate 4 gm/Sodium Chloride 100 ml @ 50 mls/hr UNSCH PRN IV 11/30/16 07:30 (Mag-Ox) 800 mg UNSCH PRN PO 11/30/16 07:30 Magnesium Sulfate 2 gm/Sodium Chloride 100 ml @ 50 mls/hr UNSCH PRN IV 11/30/16 07:30 (K-Phos) 2,000 mg Q4H PRN PO 11/30/16 07:30 Sodium Phosphate 30 mmol/Sodium Chloride 250 ml @ 42 mls/hr UNSCH PRN IV 11/30/16 07:30 (K-Phos) 2,000 mg UNSCH PRN PO/TUBE 11/30/16 07:30 Potassium Phosphate 30 mmol/ Sodium Chloride 260 ml @ 42 mls/hr UNSCH PRN IV 11/30/16 07:30 (Mag-Ox) 400 mg DAILY PO 11/30/16 09:00 12/03/16 08:59 12/02/16 07:51 (Lactulose Liq) 30 ml BID NG 11/30/16 09:00 12/01/16 20:11 (Free Water) 200 ml Q8HR G-TUBE 11/30/16 14:00 12/01/16 05:22 Diltiazem HCl 125 mg/Sodium Chloride 125 ml @ 5 mls/hr TITRATE PRN IV 11/30/16 16:45 12/02/16 10:57 (Protonix Inj) 40 mg BID IV PUSH 12/01/16 09:00 12/02/16 07:51 Sodium Chloride 1,000 ml @ 84 mls/hr [id number] IV 12/01/16 09:00 12/02/16 07:52 (Duoneb Neb) 1 ampule Q6HR NEB NEB 12/02/16 16:00 UNV Norepinephrine Bitartrate 4 mg/ Sodium Chloride 250 ml @ 7.5 mls/hr TITRATE PRN IV 12/02/16 11:00 UNV (Brethine Inj) 1 mg UNSCH PRN SQ 12/02/16 11:00 UNV (Lanoxin Inj) 0.25 mg ONCE ONCE IV PUSH 12/02/16 11:15 12/02/16 11:16 UNV (Lanoxin Inj) 0.25 mg ONCE ONCE IV PUSH 12/02/16 17:15 12/02/16 17:16 UNV Physical Exam General Appearance: No Acute Distress Eyes Eye Remarks Prosthetic R eye Neck Neck Exam: Trachea Midline Pulmonary Resp Exam: Breath Sounds Equal, Diminished Breath Sounds Cardiology CV Exam: Normal Sinus Rhythm, Irregular, Murmur CV Remarks LUSB Extremeties Extremities Exam: Moderate Edema (1-2+ pitting BUE and BLE) Neurologic Neuro Exam: Unresponsive Assessment/Plan Problem List: (1) JOSUE (acute kidney injury) ICD Codes: N17.9 - JOSUE (acute kidney injury) Status: Acute Plan: Renal functions have been improving related to previous insult related to abdominal surgery, but she unfortunately has recurrence of acute renal insufficiency secondary to hemodynamic factors (i.e. hypotension and GI bleed.) Renal functions stable UOP marginal, but she has significant stool and gastric output. Increase IVF to 100mL/hr BP improving, hopefully renal functions will improve On K+ repletion Medications should be adjusted for the patient's estimated GFR if clinically indicated. Avoid agents with significant potential for nephrotoxicity possible including NSAIDs for analgesia, iodine contrast agents. Gadolinium is contraindicated if the GFR is below 30. Permanent Comment: Secondary to sepsis. Last Edited By: Radha Ferrari on Nov 26, 2016 11:19 (2) Sepsis ICD Codes: A41.9 - Sepsis, unspecified organism Plan: Management per infectious disease. Permanent Comment: Patient status post right colectomy for volvulus as well as ERCP obstructed bile duct November 21, 2016. Last Edited By: Radha Ferrari on Nov 26, 2016 11:20 (3) Hypernatremia ICD Codes: E87.0 - Hyperosmolality and hypernatremia Status: Resolved Plan: Resolved with D5 and free water (4) Hypertension ICD Codes: I10 - Hypertension Status: Chronic Plan: As per hx. Hypotensive in house requiring inotropic support Problem Qualifiers (1) Hypertension: Qualified Codes: I10 - Essential (primary) hypertension Kait Loyola Dec 02, 2016 11:18
[2016-12-02] MEDS: FLUCONAZOLE 400 MG PREMIX BAG 200 ML IV SCH (12:01)
--- NOTE | 2016-12-02 12:08 | HHI.IDPN ---
Subjective Subjective Remarks no fever today remains unresponsive, just w/d to pain requires less pressors remains on vent UOP improved, but still marginal Antibiotics zosyn Lines Line sites with no e.o infection Past Medical History reviewed Allergies: Coded Allergies: No Known Allergies (Unverified , 11/24/16) Objective . Vital Signs Date Time Temp Pulse Resp B/P (MAP) Pulse Ox O2 Delivery O2 Flow Rate FiO2 12/02/16 10:57 84 97/52 12/02/16 10:31 96 40 12/02/16 10:00 84 12/02/16 08:10 96 40 12/02/16 08:00 80 12/02/16 08:00 98.9 85 18 97/54 (68) 96 12/02/16 08:00 50 12/02/16 06:00 80 12/02/16 06:00 80 101/53 12/02/16 06:00 72 101/53 (69) 12/02/16 05:00 85 100/50 12/02/16 04:04 94 40 12/02/16 04:00 40 12/02/16 04:00 98.9 74 18 94/50 (65) 94 12/02/16 04:00 74 12/02/16 02:00 76 12/02/16 01:15 70 91/47 12/02/16 00:00 72 12/02/16 00:00 72 108/54 (72) 12/02/16 00:00 40 12/02/16 00:00 99.1 72 18 108/54 (72) 95 12/01/16 23:45 72 103/52 12/01/16 22:15 74 100/50 12/01/16 22:01 98 40 12/01/16 22:00 73 12/01/16 20:00 98.7 82 18 100/55 (70) 98 12/01/16 20:00 50 12/01/16 20:00 82 12/01/16 19:30 79 103/54 12/01/16 18:00 80 12/01/16 17:48 79 96/49 12/01/16 16:42 97 50 12/01/16 16:00 76 12/01/16 16:00 50 12/01/16 16:00 98.9 76 18 103/50 (67) 97 12/01/16 14:00 78 12/01/16 13:24 99 50 12/01/16 12:30 83 83/44 12/01/16 12:07 100 60 12/02/16 12/02/16 12/03/16 15:00 23:00 07:00 Intake Total 50 ml Balance 50 ml IV Total 50 ml . Laboratory Tests Test 12/01/16 02:50 12/01/16 04:00 12/01/16 10:07 12/01/16 15:30 Hemoglobin 10.8 GM/DL 11.3 GM/DL 8.5 GM/DL 8.7 GM/DL Hematocrit 33.4 % 34.6 % 26.3 % 26.1 % White Blood Count 55.0 TH/MM3 42.6 TH/MM3 Red Blood Count 4.06 MIL/MM3 3.08 MIL/MM3 Mean Corpuscular Volume 85.2 FL 85.5 FL Mean Corpuscular Hemoglobin 27.9 PG 27.5 PG Mean Corpuscular Hemoglobin Concent 32.7 % 32.2 % Red Cell Distribution Width 15.8 % 16.0 % Platelet Count 130 TH/MM3 88 TH/MM3 Mean Platelet Volume 12.2 FL 11.8 FL Test 12/01/16 22:00 12/02/16 03:30 Hemoglobin 8.8 GM/DL 8.6 GM/DL Hematocrit 26.7 % 26.4 % White Blood Count 35.0 TH/MM3 Red Blood Count 3.11 MIL/MM3 Mean Corpuscular Volume 84.8 FL Mean Corpuscular Hemoglobin 27.7 PG Mean Corpuscular Hemoglobin Concent 32.6 % Red Cell Distribution Width 16.4 % Platelet Count 111 TH/MM3 Mean Platelet Volume 11.8 FL Neutrophils (%) (Auto) 93.8 % Lymphocytes (%) (Auto) 3.1 % Monocytes (%) (Auto) 2.7 % Eosinophils (%) (Auto) 0.2 % Basophils (%) (Auto) 0.2 % Neutrophils # (Auto) 32.8 TH/MM3 Lymphocytes # (Auto) 1.1 TH/MM3 Monocytes # (Auto) 1.0 TH/MM3 Eosinophils # (Auto) 0.1 TH/MM3 Basophils # (Auto) 0.1 TH/MM3 CBC Comment AUTO DIFF Differential Total Cells Counted 100 Neutrophils % (Manual) 69 % Band Neutrophils % 22 % Lymphocytes % 4 % Monocytes % 1 % Eosinophils % 4 % Neutrophils # (Manual) 31.9 TH/MM3 Nucleated Red Blood Cells 1 /100 WBC Differential Comment FINAL DIFF MANUAL Platelet Estimate LOW Platelet Morphology Comment ENLARGED Ovalocytes 1+ Acanthocytes 1+ Keratocytes OCC Laboratory Tests Test 12/01/16 04:00 12/01/16 07:30 12/01/16 15:30 12/01/16 18:23 Blood Urea Nitrogen 33 MG/DL 34 MG/DL Creatinine 1.75 MG/DL 1.60 MG/DL Random Glucose 95 MG/DL 117 MG/DL Total Protein 6.3 GM/DL Albumin 1.7 GM/DL Calcium Level 8.1 MG/DL 8.0 MG/DL Phosphorus Level 3.6 MG/DL Magnesium Level 2.2 MG/DL Alkaline Phosphatase 136 U/L Aspartate Amino Transf (AST/SGOT) 40 U/L Alanine Aminotransferase (ALT/SGPT) 26 U/L Total Bilirubin 0.9 MG/DL Sodium Level 140 MEQ/L 140 MEQ/L Potassium Level 3.3 MEQ/L 3.1 MEQ/L Chloride Level 109 MEQ/L 111 MEQ/L Carbon Dioxide Level 18.2 MEQ/L 19.1 MEQ/L Anion Gap 13 MEQ/L 10 MEQ/L Estimat Glomerular Filtration Rate 28 ML/MIN 31 ML/MIN Ammonia 37 MCMOL/L Total Creatine Kinase 340 U/L Creatine Kinase MB 2.6 NG/ML Creatine Kinase MB % 0.8 % Lactic Acid Level 3.3 mmol/L 1.4 mmol/L Test 12/02/16 03:30 Blood Urea Nitrogen 33 MG/DL Creatinine 1.73 MG/DL Random Glucose 106 MG/DL Total Protein 5.7 GM/DL Albumin 2.0 GM/DL Calcium Level 7.5 MG/DL Phosphorus Level 4.6 MG/DL Magnesium Level 2.0 MG/DL Alkaline Phosphatase 94 U/L Aspartate Amino Transf (AST/SGOT) 31 U/L Alanine Aminotransferase (ALT/SGPT) 19 U/L Total Bilirubin 0.8 MG/DL Sodium Level 142 MEQ/L Potassium Level 3.0 MEQ/L Chloride Level 113 MEQ/L Carbon Dioxide Level 15.4 MEQ/L Anion Gap 14 MEQ/L Estimat Glomerular Filtration Rate 28 ML/MIN Lactic Acid Level 1.4 mmol/L Ammonia 15 MCMOL/L Microbiology Date/Time Source Procedure Growth Status 11/29/16 14:55 Blood Peripheral Aerobic Blood Culture - Preliminary NO GROWTH IN 3 DAYS Resulted 11/29/16 14:55 Blood Peripheral Anaerobic Blood Culture - Final QNS - SEE AEROBE REPORT Resulted 11/29/16 14:50 Blood Peripheral Aerobic Blood Culture - Preliminary NO GROWTH IN 3 DAYS Resulted 11/29/16 14:50 Blood Peripheral Anaerobic Blood Culture - Preliminary NO GROWTH IN 3 DAYS Resulted 11/30/16 23:00 Stool Stool Stool Occult Blood (MAXINE) - Final HEMOCCULT POSITIVE Complete Imaging Last Impressions Chest X-Ray 12/01/16 0600 Signed Impressions: Service Date/Time: Thursday, December 01, 2016 05:48 - CONCLUSION: Resolved infiltrates in the right lower lung and persistent infiltrates in the left lower lung. Shant Robertson MD Chest CT 12/01/16 0000 Signed Impressions: Service Date/Time: Thursday, December 01, 2016 08:13 - CONCLUSION: 1. Severe emphysema with bilateral airspace consolidation in a patchy distribution involving the upper and lower lobes but most severe in the left lower lobe. There is also a trace left pleural effusion. Imaging findings are nonspecific but infection or aspiration should be considerations. 2. Coronary artery calcification. Giovani Lopez MD Abdomen/Pelvis CT 12/01/16 0000 Signed Impressions: Service Date/Time: Thursday, December 01, 2016 08:13 - CONCLUSION: 1. No acute finding is identified to explain the blood in stool. There are postsurgical findings suggesting prior right hemicolectomy. Colon contains a fluid and air and there is sigmoid diverticulosis. 2. Small volume of free fluid in the abdomen and pelvis. Also, there is mild diffuse subcutaneous edema. Giovani Lopez MD Head CT 11/27/16 0000 Signed Impressions: Service Date/Time: Sunday, November 27, 2016 14:47 - CONCLUSION: 1. Questionable edema or subacute infarct in the left parietal deep white matter. This would be better evaluated with MRI. No intracranial hemorrhage or significant mass effect. Romario Kauffman MD Brain MRI 11/27/16 0000 Signed Impressions: Service Date/Time: Sunday, November 27, 2016 18:10 - CONCLUSION: 1. Moderate periventricular and subcortical white matter small vessel ischemic changes bilaterally. 2. 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 3. No acute infarct, acute hemorrhage, mass effect or extra-axial fluid collection. 4. Fluid level within sphenoid sinuses. 5. Fluid within the mastoid air cells bilaterally. Hasmukh Oakes MD Abdomen Ultrasound 11/23/16 0000 Signed Impressions: Service Date/Time: Wednesday, November 23, 2016 19:33 - CONCLUSION: 1. Somewhat limited study. Proximal superior mesenteric artery appears patent. 2. Mildly elevated flow velocities in the celiac and hepatic arteries of doubtful clinical significance. Giovani Martinez MD GI Procedure 11/21/16 0000 Signed Impressions: Service Date/Time: Monday, November 21, 2016 10:44 - CONCLUSION: ERCP as above. Reymundo Wilburn MD FACR Physical Exam CONSTITUTIONAL/GENERAL: This is an adequately nourished patient, in no apparent distress. sedated int'd on vent TUBES/LINES/DRAINS: SKIN: No jaundice, rashes, or lesions. Skin temperature appropriate. Not diaphoretic. EYES: OD - prosthesis Fundi not examined. CARDIOVASCULAR: Regular rate and rhythm + 2/6 systolic murmur, no gallops, or rubs. No JVD. Peripheral pulses symmetric. Well perfused perifery RESPIRATORY/CHEST: Symmetric, unlabored respirations. Rhonchi to auscultation. Breath sounds equal bilaterally. No wheezes, rales, or rhonchi. GASTROINTESTINAL: distended abdomen with clean incision Bowel sounds hypoactive dignishield in place with liquid dark stool GENITOURINARY: Without palpable bladder distension. Sanchez catheter in place with small amount of dark yellow urine UOP improved MUSCULOSKELETAL: Extremities without clubbing, , + 2-3 + edema. 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 Pt states she was given PCN many years ago and it was uneventful Gallstones sp ERCP 2 yrs ago ARF: improving New problem : aspiration, ileus Recurrent VDRF - sp reintubation Melena: CT unremarkable Diarrhea, C.diff negative Rec: fu WBC cont zosyn; adjust per GFR cont diflucan rechk blood clx if fever or worsening leukocytosis Sharon Guerra RN, MD Dec 02, 2016 12:08
--- NOTE | 2016-12-02 12:31 | HHI.PR ---
Subjective Subjective Notes The patient is intubated and sedated. Events of the last 24-36 hours were noted. The patient has failed extubation. Objective Vitals/I&O Vital Signs Date Time Temp Pulse Resp B/P (MAP) Pulse Ox O2 Delivery O2 Flow Rate FiO2 12/02/16 10:57 84 97/52 12/02/16 10:31 96 40 12/02/16 08:00 98.9 18 11/30/16 14:30 Non-Rebreather 12 Labs Laboratory Tests Test 12/01/16 12:36 12/01/16 15:30 12/01/16 17:00 12/01/16 18:23 Urine Eosinophils NONE SEEN Urine Random Creatinine 80.9 Urine Random Sodium 11 Hemoglobin 8.7 Hematocrit 26.1 Blood Urea Nitrogen 34 Creatinine 1.60 Random Glucose 117 Calcium Level 8.0 Sodium Level 140 Potassium Level 3.1 Chloride Level 111 Carbon Dioxide Level 19.1 Anion Gap 10 Estimat Glomerular Filtration Rate 31 Stool C. difficile Toxin (PCR) NEGATIVE Stl C. difficile Toxin Epiderm 027 PRESUMPTIVE NEGATIVE Lactic Acid Level 1.4 Test 12/01/16 22:00 12/02/16 03:30 Hemoglobin 8.8 8.6 Hematocrit 26.7 26.4 White Blood Count 35.0 Red Blood Count 3.11 Mean Corpuscular Volume 84.8 Mean Corpuscular Hemoglobin 27.7 Mean Corpuscular Hemoglobin Concent 32.6 Red Cell Distribution Width 16.4 Platelet Count 111 Mean Platelet Volume 11.8 Neutrophils (%) (Auto) 93.8 Lymphocytes (%) (Auto) 3.1 Monocytes (%) (Auto) 2.7 Eosinophils (%) (Auto) 0.2 Basophils (%) (Auto) 0.2 Neutrophils # (Auto) 32.8 Lymphocytes # (Auto) 1.1 Monocytes # (Auto) 1.0 Eosinophils # (Auto) 0.1 Basophils # (Auto) 0.1 CBC Comment AUTO DIFF Differential Total Cells Counted 100 Neutrophils % (Manual) 69 Band Neutrophils % 22 Lymphocytes % 4 Monocytes % 1 Eosinophils % 4 Neutrophils # (Manual) 31.9 Nucleated Red Blood Cells 1 Differential Comment FINAL DIFF MANUAL Platelet Estimate LOW Platelet Morphology Comment ENLARGED Ovalocytes 1+ Acanthocytes 1+ Keratocytes OCC Blood Urea Nitrogen 33 Creatinine 1.73 Random Glucose 106 Total Protein 5.7 Albumin 2.0 Calcium Level 7.5 Phosphorus Level 4.6 Magnesium Level 2.0 Alkaline Phosphatase 94 Aspartate Amino Transf (AST/SGOT) 31 Alanine Aminotransferase (ALT/SGPT) 19 Total Bilirubin 0.8 Sodium Level 142 Potassium Level 3.0 Chloride Level 113 Carbon Dioxide Level 15.4 Anion Gap 14 Estimat Glomerular Filtration Rate 28 Lactic Acid Level 1.4 Ammonia 15 Date/Time Source Procedure Growth Status 11/29/16 14:55 Blood Peripheral Aerobic Blood Culture - Preliminary NO GROWTH IN 3 DAYS Resulted 11/29/16 14:55 Blood Peripheral Anaerobic Blood Culture - Final QNS - SEE AEROBE REPORT Resulted 11/30/16 23:00 Stool Stool Stool Occult Blood (MAXINE) - Final HEMOCCULT POSITIVE Complete Radiology Last Impressions Chest X-Ray 11/24/16 0000 Signed Impressions: Service Date/Time: Thursday, November 24, 2016 11:57 - CONCLUSION: 1. Interval placement of nasogastric catheter with tip beyond the GE junction omitted from the image. 2. Persistent diffuse coarse interstitial prominence likely reflecting interstitial edema/pneumonia superimposed on chronic interstitial changes. 3. Stable mild bibasilar airspace disease, likely atelectasis. Sam Buckner MD Abdomen/Pelvis CT 11/23/16 0000 Signed Impressions: Service Date/Time: Wednesday, November 23, 2016 21:46 - CONCLUSION: 1. 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 2. Mild head pancreatitis possible in the proper clinical setting. Patient has recently had ERCP and bile duct stone extraction. 3. Bibasilar pneumonia developing. Tiny pleural effusion on the right. 4. Chronic findings otherwise. Giovani Martinez MD Abdomen Ultrasound 11/23/16 0000 Signed Impressions: Service Date/Time: Wednesday, November 23, 2016 19:33 - CONCLUSION: 1. Somewhat limited study. Proximal superior mesenteric artery appears patent. 2. Mildly elevated flow velocities in the celiac and hepatic arteries of doubtful clinical significance. Giovani Martinez MD GI Procedure 11/21/16 0000 Signed Impressions: Service Date/Time: Monday, November 21, 2016 10:44 - CONCLUSION: ERCP as above. Reymundo Wilburn MD FACR Chest CT 11/20/16 1407 Signed Impressions: Service Date/Time: Sunday, November 20, 2016 15:13 - CONCLUSION: 1. Severe underlying emphysema. 2. Status post median sternotomy with postsurgical changes. Maikol Paredes MD Cardiovascular: Regular Lungs: Upper airway course sound Narrative Exam The abdomen is distended and quiet. She minimally responds to palpation throughout with grimacing. A/P Assessment and Plan Impression: A 86-year-old lady status post right colectomy for cecal volvulus. She has multiple medical problems and remains critically ill with her renal function worsening. Her cardiopulmonary status is extremely questionable. Overall her prognosis remains extremely grim. Plan: Per [facility] overall; we will monitor her from the surgical standpoint. No further surgical intervention indicated at present. Shivam Ball MD Dec 02, 2016 12:31
[2016-12-02] MEDS: NOREPINEPHRINE INJ 4 MG in SODIUM CHLOR 0.9% 250 ML INJ 246 ML IV PRN (12:48)
[2016-12-02] MEDS: POTASSIUM CHLORIDE IV SCH (17:09)
[2016-12-02] MEDS: SODIUM BICARBONATE IV SCH (17:09)
[2016-12-02] MEDS: [UNRECOGNIZED DRUG - OTHER] IV SCH (17:09)
[2016-12-02] MEDS ORDERED: POTASSIUM CHLOR 40 MEQ PREMIX 100 ML IV ONE (17:15)
[2016-12-02] MEDS: fentaNYL DRIP 250 ML IV PRN (17:42)
[2016-12-02] MEDS ORDERED: POTASSIUM CHLORIDE IV SCH (18:00)
[2016-12-02] MEDS ORDERED: [UNRECOGNIZED DRUG - OTHER] IV SCH (18:00)
[2016-12-02] MEDS ORDERED: SODIUM BICARBONATE IV SCH (18:00)
[2016-12-03] VITALS (17 sets, daily range): BP systolic 93–126; BP diastolic 46–60; PULSE 71–99; RESP 18–19; TEMP 98.3–99.6; O2SAT 91–98
[2016-12-03] MEDS: INSULIN NovoLIN REGULAR SUPPLEMENTAL SCALE SQ SCH ×6 (00:15→20:15)
[2016-12-03] MEDS: PIPERACIL-TAZO 2.25 GM PREMIX 50 ML IV SCH ×4 (03:32→20:18)
[2016-12-03] MEDS: [UNRECOGNIZED DRUG - OTHER] IV SCH ×2 (03:32→14:42)
[2016-12-03] MEDS: SODIUM BICARBONATE IV SCH ×2 (03:32→14:42)
[2016-12-03] MEDS: POTASSIUM CHLORIDE IV SCH ×2 (03:32→14:42)
[2016-12-03] MEDS: RESP: ALBUTEROL 2.5 MG/IPRATROPIUM 0.5 MG NEB (SCH) NEB ×4 (05:16→20:41)
[2016-12-03] MEDS: FREE WATER G-TUBE SCH ×3 (05:55→20:12)
[2016-12-03] MEDS: DILTIAZEM HCL 30 MG TAB PO SCH ×4 (05:56→17:57)
[2016-12-03] MEDS: ARTIFICIAL TEARS OPTH SOLN 15 ML BTL LEFT EYE SCH ×3 (05:56→20:22)
[2016-12-03] MEDS: METOCLOPRAMIDE HCL 10 MG/2 ML VIAL IV PUSH SCH ×3 (05:56→20:12)
--- NOTE | 2016-12-03 05:56 | RADRPT ---
EXAM DATE/TIME: 12/03/2016 04:16 [place] COMPARISON: CHEST SINGLE AP, December 01, 2016, 5:48. INDICATIONS : Shortness of breath, possible pulmonary disease. MEDICAL HISTORY : Hypertension. SURGICAL HISTORY : CABG. Hysterectomy. Carotid endarterectomy. ENCOUNTER: Subsequent ACUITY: 1 week PAIN SCORE: Non-responsive. LOCATION: Bilateral chest FINDINGS: A single view of the chest demonstrates endotracheal tube in good position. Nasogastric tube enters s tomach. Right central line in superior vena cava. Previous median sternotomy. Bilateral mostly basila r airspace disease increased from December 01. Small pleural effusions. No pneumothorax. CONCLUSION: 1. Increasing basilar airspace disease since December 01. Small effusions. Romario Kauffman MD on December 03, 2016 at 5:53 Board Certified Radiologist. This report was verified electronically.
[2016-12-03 06:48] LABS: AUTOMATED NEUTROPHIL # 29.8 TH/MM3 (1.8-7.7); BASOPHIL # 0.1 TH/MM3 (0-0.2); BASOPHIL % 0.2 % (0.0-2.0); EOSINOPHIL % 0.1 % (0.0-4.0); HEMATOCRIT 26.8 % (35.0-46.0); MEAN CELL VOLUME 85.6 FL (80.0-100.0); MEAN CORPUSCULAR HEMOGLOBIN 28.4 PG (27.0-34.0); MEAN CORPUSCULAR HGB CONC 33.1 % (32.0-36.0); MONO % 3.1 % (0.0-8.0); NEUT % 93.6 % (16.0-70.0); PLATELET COUNT 112 TH/MM3 (150-450); RED BLOOD COUNT 3.13 MIL/MM3 (4.00-5.30); RED CELL DISTRIBUTION WIDTH 16.7 % (11.6-17.2); WHITE BLOOD COUNT 31.9 TH/MM3 (4.0-11.0)
[2016-12-03 06:56] LABS: HEMO FLAGS AUTO DIFF
[2016-12-03 07:32] LABS: ALT (GPT) 15 U/L (10-53); ANION GAP 12 MEQ/L (5-15); AST (GOT) 35 U/L (15-37); BICARBONATE 15.3 MEQ/L (21.0-32.0); BLOOD UREA NITROGEN 27 MG/DL (7-18); CHLORIDE 117 MEQ/L (98-107); GLOMERULAR FILTRATION RATE 34 ML/MIN (>89); MAGNESIUM 1.8 MG/DL (1.5-2.5); POTASSIUM 3.7 MEQ/L (3.5-5.1); SODIUM (NA) 144 MEQ/L (136-145)
[2016-12-03 07:46] LABS: ALKALINE PHOSPHATASE 116 U/L (45-117)
[2016-12-03] MEDS ORDERED: PROPOFOL 200 MG/20 ML AMP IV ONE ×2 (08:04→10:36)
[2016-12-03] MEDS: URSODIOL 300 MG CAP PO SCH (08:36)
[2016-12-03] MEDS: PANTOPRAZOLE SODIUM 40 MG VIAL IV PUSH SCH ×2 (08:36→20:11)
[2016-12-03] MEDS: SODIUM CHLORIDE 0.9% FLUSH 10 ML FLUSH IV FLUSH SCH ×2 (08:36→20:12)
[2016-12-03] MEDS: LACTULOSE SYRUP 20 GM/30 ML CUP NG SCH ×2 (08:36→20:12)
[2016-12-03] MEDS: PROPOFOL 1000 MG/100 ML INJ 100 ML IV PRN ×2 (08:38→16:58)
[2016-12-03 08:41] LABS: BANDS 3 % (0-6); CORRECTED NUCLEATED RBC 1 /100 WBC (0-0); NEUTROPHIL # MANUAL DIFF 30.9 TH/MM3 (1.8-7.7); POLYS (SEG NEUTROPHILS) 94 % (16-70); WBC DIFF SAMPLE 100
[2016-12-03 08:42] LABS: ACANTHOCYTES OCC (NORMAL); DOHLE BODIES PRESENT (NONE SEEN); PLATELET ESTIMATE SMEAR LOW (NORMAL); PLATELET MORPHOLOGY ENLARGED (NORMAL)
[2016-12-03 08:43] LABS: KERATOCYTES 1+ (NORMAL); SCAN/DIFF FINAL DIFF MANUAL
--- NOTE | 2016-12-03 10:26 | HHI.CCPN ---
Subjective Remarks/Hospital Course 86 y/o woman developed worsening SOB this afternoon associated with marked leukocytosis. Recent biliary instrumentation for obstruction 48 hours ago and probable sepsis. On appropriate antibiotics. Requiring NRBM now for oxygenation to 97%. Visibly labored breathing. CXR with interstitial edema. EF 35% 2014. Move to ICU. 11/24: Patient s/p colonoscopy this morning which showed mod. diverticulosis in sigmoid colon and hemorrhoids. Remains on NRB with good sats. Afebrile. Cr increased 1.51 from 1.08. 11/25 Patient s/p Ex lap, right colectomy and cholecystectomy. She kept intubated postop went into Afib with RVR overnight and placed on Cardizem drip 10mg/hr. 11/26 Patient is sedated with Diprivan, fentanyl and intubated. Afebrile. On Cardizem drip 5mg/hr. renal function worse with Cr: 2.01 from 1.89, UOP: 1L in 24 hrs 11/27 Patient remains sedated and intubated. Off Cardizem drip. Renal function is improving with Cr: 1.67 from 2.01. Afebrile. 11/28 remains intubated sedated. Heart rate controlled. Creat 1.26. Hb 6.5. Status post 2 units PRBC today. WBC count decreased from 40,000-26,000. Creat improving 1.26 11/29: Patient A. fib with RVR currently on diltiazem drip at 15 mg an hour for rate control. Hemodynamically stable. 11/30: Heart rate better controlled today. Diltiazem drip discontinued overnight. Heart rate currently in the 70s. Tolerated PSV trials yesterday. We'll attempt extubation today if tolerates. No bowel movement. Tolerating tube feeds at 30 cc an hour 12/01: Tmax 101.7. Failed extubation trial after 1 hour yesterday. Persistently hypotensive post intubation. Transfuse 1 unit hemoglobin yesterday for melena per RN. Hemoglobin went from 7.5-11.3. CVP is 12. Enoxaparin will be held. CT thorax, abdomen and pelvis performed now. Lactate pending. Serial hemoglobins. GI consult for EGD Subjective 12/03: Patient remains sedated with Diprivan and Fentanyl and intubated. On Levophed 4 mics, Cardizem drip 2.5mg/hr. For EGD today Objective Vital Signs Date Time Temp Pulse Resp B/P (MAP) Pulse Ox O2 Delivery O2 Flow Rate FiO2 12/03/16 08:24 94 40 12/03/16 08:00 98.7 73 18 93/46 (62) 11/30/16 14:30 Non-Rebreather 12 Intake and Output 12/03/16 12/03/16 12/04/16 08:00 16:00 00:00 Intake Total 1749 ml 15 ml Output Total 650 ml Balance 1099 ml 15 ml Result Diagram: 12/03/16 0620 12/03/16 0620 Other Results Laboratory Tests Test 12/02/16 15:57 12/03/16 06:20 Potassium Level 3.1 MEQ/L 3.7 MEQ/L White Blood Count 31.9 TH/MM3 Red Blood Count 3.13 MIL/MM3 Hemoglobin 8.9 GM/DL Hematocrit 26.8 % Mean Corpuscular Volume 85.6 FL Mean Corpuscular Hemoglobin 28.4 PG Mean Corpuscular Hemoglobin Concent 33.1 % Red Cell Distribution Width 16.7 % Platelet Count 112 TH/MM3 Mean Platelet Volume 11.9 FL Neutrophils (%) (Auto) 93.6 % Lymphocytes (%) (Auto) 3.0 % Monocytes (%) (Auto) 3.1 % Eosinophils (%) (Auto) 0.1 % Basophils (%) (Auto) 0.2 % Neutrophils # (Auto) 29.8 TH/MM3 Lymphocytes # (Auto) 1.0 TH/MM3 Monocytes # (Auto) 1.0 TH/MM3 Eosinophils # (Auto) 0.0 TH/MM3 Basophils # (Auto) 0.1 TH/MM3 CBC Comment AUTO DIFF Differential Total Cells Counted 100 Neutrophils % (Manual) 94 % Band Neutrophils % 3 % Lymphocytes % 2 % Monocytes % 1 % Neutrophils # (Manual) 30.9 TH/MM3 Nucleated Red Blood Cells 1 /100 WBC Differential Comment FINAL DIFF MANUAL Dohle Bodies PRESENT Platelet Estimate LOW Platelet Morphology Comment ENLARGED Acanthocytes OCC Keratocytes 1+ Blood Urea Nitrogen 27 MG/DL Creatinine 1.45 MG/DL Random Glucose 77 MG/DL Total Protein 5.4 GM/DL Albumin 1.6 GM/DL Calcium Level 7.5 MG/DL Phosphorus Level 4.1 MG/DL Magnesium Level 1.8 MG/DL Alkaline Phosphatase 116 U/L Aspartate Amino Transf (AST/SGOT) 35 U/L Alanine Aminotransferase (ALT/SGPT) 15 U/L Total Bilirubin 1.0 MG/DL Sodium Level 144 MEQ/L Chloride Level 117 MEQ/L Carbon Dioxide Level 15.3 MEQ/L Anion Gap 12 MEQ/L Estimat Glomerular Filtration Rate 34 ML/MIN Digoxin Level 1.0 NG/ML Imaging Last Impressions Chest X-Ray 12/03/16 0600 Signed Impressions: Service Date/Time: Saturday, December 03, 2016 04:16 - CONCLUSION: 1. Increasing basilar airspace disease since December 01. Small effusions. Romario Kauffman MD Chest CT 12/01/16 0000 Signed Impressions: Service Date/Time: Thursday, December 01, 2016 08:13 - CONCLUSION: 1. Severe emphysema with bilateral airspace consolidation in a patchy distribution involving the upper and lower lobes but most severe in the left lower lobe. There is also a trace left pleural effusion. Imaging findings are nonspecific but infection or aspiration should be considerations. 2. Coronary artery calcification. Giovani Lopez MD Abdomen/Pelvis CT 12/01/16 0000 Signed Impressions: Service Date/Time: Thursday, December 01, 2016 08:13 - CONCLUSION: 1. No acute finding is identified to explain the blood in stool. There are postsurgical findings suggesting prior right hemicolectomy. Colon contains a fluid and air and there is sigmoid diverticulosis. 2. Small volume of free fluid in the abdomen and pelvis. Also, there is mild diffuse subcutaneous edema. Giovani Lopez MD Head CT 11/27/16 0000 Signed Impressions: Service Date/Time: Sunday, November 27, 2016 14:47 - CONCLUSION: 1. Questionable edema or subacute infarct in the left parietal deep white matter. This would be better evaluated with MRI. No intracranial hemorrhage or significant mass effect. Romario Kauffman MD Brain MRI 11/27/16 0000 Signed Impressions: Service Date/Time: Sunday, November 27, 2016 18:10 - CONCLUSION: 1. Moderate periventricular and subcortical white matter small vessel ischemic changes bilaterally. 2. 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 3. No acute infarct, acute hemorrhage, mass effect or extra-axial fluid collection. 4. Fluid level within sphenoid sinuses. 5. Fluid within the mastoid air cells bilaterally. Hasmukh Oakes MD Abdomen Ultrasound 11/23/16 0000 Signed Impressions: Service Date/Time: Wednesday, November 23, 2016 19:33 - CONCLUSION: 1. Somewhat limited study. Proximal superior mesenteric artery appears patent. 2. Mildly elevated flow velocities in the celiac and hepatic arteries of doubtful clinical significance. Giovani Martinez MD GI Procedure 11/21/16 0000 Signed Impressions: Service Date/Time: Monday, November 21, 2016 10:44 - CONCLUSION: ERCP as above. Reymundo Wilburn MD FACR Objective Remarks GENERAL: 86 yo female, critically ill currently orotracheally intubated SKIN: Warm and dry. No rash HEAD: Normocephalic. EYES: No scleral icterus. No injection or drainage. 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 NECK: Supple, trachea midline. No JVD or lymphadenopathy. CARDIOVASCULAR: Tachycardia, IR S1, S2 no S4. Faint 2/6 systolic murmur left lower sternal border/right upper sternal border RESPIRATORY: Breath sounds equal bilaterally. No accessory muscle use. GASTROINTESTINAL: Abdomen soft, tenderness on palpation. MUSCULOSKELETAL: Trace peripheral edema Neuro: Currently on propofol for sedation. Withdraws all 4 extremities. Was following commands yesterday post extubation. Date of Insertion: Nov 24, 2016 Line: Central Venous Catheter Side: Right Location: Internal, Jugular A/P Assessment and Plan Neuro/Psych: History of chronic bilateral basal ganglia CVA Acute toxic metabolic encephalopathy Prosthetic left eye Currently on propofol at 20 mics grams per kilogram per minute and/fentanyl drip at 100 mcg an hour infusion for sedation/analgesia while intubated Goal of RASS -2 Daily sedation vacation. MRI brain 11/27 showed moderate small vessel disease, old bilateral basal ganglia CVA however no acute findings. Evaluated by Dr. Roque - neurology Continue amitriptyline 10 mg at night Pulm: Acute hypoxemic respiratory failure History of COPD ACV 18/650/5/40 Ventilator bundle Albuterol/ipratropium aerosols every 6 hours with albuterol aerosols every 2 hours as needed for dyspnea Continue with vent support and maintain sat >92% SBT daily as adelina. day. Tolerated extubation 1.5 hours a 11/30. Likely will need tracheostomy CT chest 11/20: Severe underlying emphysema. Status post median sternotomy with postsurgical changes. CT thorax 11/30 revealed severe emphysema. Bilateral upper and lower lobe infiltrates/glass ground likely aspiration. CV: Systolic heart failure - likely chronic ejection fraction 40% Severe sepsis Atrial Fibrillation w/ RVR History of hypertension Severe pulmonary hypertension likely group 3 secondary to COPD PAD history of bilateral CEA Monitor HR and BP keep MAP>65mmHg On Levophed 4 mics. Cardizem drip if needed for rate control, s/p Digoxin 0.25mg x2 yesterday. Dig level 1.0 Echo from 11/26 EF 40%, mild MR. Moderate AR/TR. Severe pulmonary HTN (PAP 70mmHg) ASA 81 mg daily held in light of GI bleeding Holding Procardia XL 60mg daily as cannot be crushed. Atorvastatin 80 mg daily held ( elevated LFT's) now within normal. RENAL/: Acute kidney injury -creatinine currently 1.7 Hypokalemia Monitor renal function, I/O's, avoid nephrotoxins renal is following- Dr. 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 Gastroesophageal reflux disease Transaminitis Hyperammonia Constipation Monitor LFT; Glucerna 1.5@ 45 cc an hour on hold for EGD today. 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 Mild head pancreatitis possible in the proper clinical setting. Patient has recently had ERCP and bile duct stone extraction. Bibasilar pneumonia developing. Tiny pleural effusion on the right US abdomen: Proximal superior mesenteric artery appears patent. Initiate Xifaxan 40 mg by tube every 8 hours and lactulose 30 cc twice a day. Recheck ammonia level in AM. Decreased to 38 On ursodiol 300 mg by mouth was daily resume when clinically indicated On metoclopramide per Dr. Polanco for bowel prokinetic medication ID: Continue with abx per ID (piperacillin/tazobactam/Diflucan) Monitor for signs of infections ( Fever, WBC) WBC is trending down Pertinent cultures BC 11/24: NGTD . Blood cultures 11/29 - pending C. difficile negative 12/01 Heme: Leukocytosis Normocytic anemia Thrombocytopenia Monitor CBC Status post 2 units PRBCs 11/28. 1 unit PRBCs 12/01 Hemoccult stool 11/30 positive Endo: SSI with accuchecks GI prophylaxis- Pantoprazole 40mg IV twice a day DVT prophylaxis- Enoxaparin 30mg daily held in light of GI bleed Lines: Right IJ placed in OR 11/24 Critical Care: The total critical care time was 30 minutes. Time to perform other separately billable procedures was not included in the critical care time. Marian Rodríguez MD Dec 03, 2016 10:26
--- NOTE | 2016-12-03 10:31 | HHI.NPPN ---
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 Patient also underwent repeat ERCP for obstructed bile duct November 21, 2016. Patient noted to have had a serum creatinine level 0.8 15 September 2016. On presentation creatinine level at this institution 1.59 and has now deteriorated to 2.01. Patient in the ICU with development of respiratory insufficiency and worsening leukocytosis. Patient unable to provide any history secondary to her clinical condition. Interval History Remains intubated Plans for EGD today. Trach planned later in the week present in room (Kait Loyola) Review of Systems General General Remarks Unable to obtain 2/2 to clinical condition (Kait Loyola) Objective Data Data 12/03/16 12/04/16 19:00 07:00 Intake Total 15 ml Balance 15 ml IV Total 15 ml Vital Signs Date Time Temp Pulse Resp B/P (MAP) Pulse Ox O2 Delivery O2 Flow Rate FiO2 12/03/16 08:24 94 40 12/03/16 08:00 98.7 73 18 93/46 (62) 93 12/03/16 08:00 73 12/03/16 08:00 40 12/03/16 06:00 73 12/03/16 06:00 73 95/50 12/03/16 04:00 40 12/03/16 04:00 85 12/03/16 04:00 99.6 85 18 96/46 (63) 96 12/03/16 03:32 93 96/47 12/03/16 02:00 99 12/03/16 01:00 92 106/48 12/03/16 01:00 92 106/48 12/03/16 00:30 130 104/57 12/03/16 00:00 40 12/03/16 00:00 87 12/03/16 00:00 72 94/46 (62) 12/03/16 00:00 99.0 87 19 94/46 (62) 94 12/03/16 00:00 87 94/46 12/02/16 22:00 78 12/02/16 20:00 40 12/02/16 20:00 78 12/02/16 20:00 99.4 78 18 106/53 (70) 97 12/02/16 19:35 96 40 12/02/16 18:00 77 12/02/16 16:09 93 40 12/02/16 16:00 50 12/02/16 16:00 98.4 78 18 96/50 (65) 94 12/02/16 16:00 78 12/02/16 14:08 94 40 12/02/16 14:00 74 12/02/16 12:48 71 103/55 12/02/16 12:00 50 12/02/16 12:00 71 12/02/16 12:00 97.5 71 18 96/51 (66) 96 12/02/16 10:57 84 97/52 12/02/16 10:31 96 40 (Kait Loyola) -: 12/03/16 0620 12/03/16 0620 Medication Review Current Medications Medications (Trade) Dose Ordered Sig/Jazzmine Route Start Time Stop Time Status Last Admin (NS Flush) 2 ml BID IV FLUSH 11/20/16 21:00 12/02/16 21:32 (Zofran Inj) 4 mg Q6H PRN IVP 11/20/16 16:15 (Narcan Inj) 0.4 mg UNSCH PRN IV 11/20/16 16:15 (Milk Of Magnesia Liq) 30 ml Q12H PRN PO 11/20/16 16:15 (Lipitor) 80 mg HS PO 11/20/16 21:00 Future Hold 11/23/16 20:42 (Actigall) 300 mg Q12HR PO 11/22/16 21:00 12/03/16 08:36 (D50w (Vial) Inj) 50 ml UNSCH PRN IV 11/24/16 12:15 (Glucagon Inj) 1 mg UNSCH PRN OTHER 11/24/16 12:15 (NovoLIN R SUPPLEMENTAL SCALE) 1 Q4H SQ 11/24/16 12:15 11/26/16 04:12 Propofol 100 ml @ 1.89 mls/hr TITRATE PRN IV 11/25/16 07:30 12/03/16 08:38 Piperacillin Sod/ Tazobactam Sod 50 ml @ 100 mls/hr Q6H IV 11/25/16 09:00 12/03/16 08:36 Fentanyl Citrate 250 ml @ 5 mls/hr TITRATE PRN IV 11/25/16 16:15 12/02/16 17:42 (Tylenol 650 Mg/ 20 ml Liq) 650 mg Q6H PRN OG-TUBE 11/29/16 08:30 11/30/16 23:54 (Albuterol Neb) 2.5 mg Q2HR NEB PRN NEB 11/29/16 08:30 (Tears Naturale Opth Soln) 1 drop Q8HR LEFT EYE 11/29/16 14:00 12/03/16 05:56 (Reglan Inj) 5 mg Q8HR IV PUSH 11/29/16 14:00 12/03/16 05:56 Fluconazole/ Sodium Chloride 200 ml @ 100 mls/hr Q24H IV 11/29/16 13:00 12/02/16 12:01 (Cardizem) 30 mg Q6HR PO 11/29/16 18:00 12/02/16 05:24 Potassium Chloride 100 ml @ 50 mls/hr Q2H PRN IV 11/30/16 07:30 12/02/16 04:31 Potassium Chloride 100 ml @ 50 mls/hr Q2H PRN IV 11/30/16 07:30 (K-Lyte Cl Eff) 50 meq UNSCH PRN PO 11/30/16 07:30 Potassium Chloride 100 ml @ 25 mls/hr UNSCH PRN IV 11/30/16 07:30 Potassium Chloride 100 ml @ 50 mls/hr Q2H PRN IV 11/30/16 07:30 Magnesium Sulfate 4 gm/Sodium Chloride 100 ml @ 50 mls/hr UNSCH PRN IV 11/30/16 07:30 (Mag-Ox) 800 mg UNSCH PRN PO 11/30/16 07:30 Magnesium Sulfate 2 gm/Sodium Chloride 100 ml @ 50 mls/hr UNSCH PRN IV 11/30/16 07:30 (K-Phos) 2,000 mg Q4H PRN PO 11/30/16 07:30 Sodium Phosphate 30 mmol/Sodium Chloride 250 ml @ 42 mls/hr UNSCH PRN IV 11/30/16 07:30 (K-Phos) 2,000 mg UNSCH PRN PO/TUBE 11/30/16 07:30 Potassium Phosphate 30 mmol/ Sodium Chloride 260 ml @ 42 mls/hr UNSCH PRN IV 11/30/16 07:30 (Lactulose Liq) 30 ml BID NG 11/30/16 09:00 12/01/16 20:11 (Free Water) 200 ml Q8HR G-TUBE 11/30/16 14:00 12/01/16 05:22 Diltiazem HCl 125 mg/Sodium Chloride 125 ml @ 5 mls/hr TITRATE PRN IV 11/30/16 16:45 12/02/16 10:57 (Protonix Inj) 40 mg BID IV PUSH 12/01/16 09:00 12/03/16 08:36 (Duoneb Neb) 1 ampule Q6HR NEB NEB 12/02/16 16:00 12/03/16 08:23 (Brethine Inj) 1 mg UNSCH PRN SQ 12/02/16 11:00 Norepinephrine Bitartrate 4 mg/ Sodium Chloride 250 ml @ 7.5 mls/hr TITRATE PRN IV 12/02/16 12:15 12/02/16 12:48 Sodium Bicarbonate 75 meq/Potassium Chloride 20 meq/ Sodium Chloride 1,085 ml @ 100 mls/hr [id number] IV 12/02/16 17:00 12/03/16 03:32 (Kait Loyola) Physical Exam General Appearance: No Acute Distress (Kait Loyola) Eyes Eye Remarks Prosthetic R eye (Kait Loyola) Neck Neck Exam: Trachea Midline (Kait Loyola) Pulmonary Resp Exam: Breath Sounds Equal, Diminished Breath Sounds (Kait Loyola) Cardiology CV Exam: Normal Sinus Rhythm, Irregular, Murmur CV Remarks LUSB (Kait Loyola) Extremeties Extremities Exam: Moderate Edema (1-2+ pitting BUE and BLE) (Kait Loyola) Neurologic Neuro Exam: Unresponsive (Kait Loyola) Assessment/Plan Problem List: (1) JOSUE (acute kidney injury) ICD Codes: N17.9 - JOSUE (acute kidney injury) Status: Acute Plan: Renal functions had been improving related to previous insult related to abdominal surgery, but she unfortunately has recurrence of acute renal insufficiency secondary to hemodynamic factors (i.e. hypotension and GI bleed.) Renal functions now improving again UOP improved, still on Marquis, but dose being decreased Continue IVF at 100mL/hr with KCl and bicarb additive Medications should be adjusted for the patient's estimated GFR if clinically indicated. Avoid agents with significant potential for nephrotoxicity possible including NSAIDs for analgesia, iodine contrast agents. Gadolinium is contraindicated if the GFR is below 30. Permanent Comment: Secondary to sepsis. Last Edited By: Radha Ferrari on Nov 26, 2016 11:19 (2) Sepsis ICD Codes: A41.9 - Sepsis, unspecified organism Plan: Management per infectious disease. Permanent Comment: Patient status post right colectomy for volvulus as well as ERCP obstructed bile duct November 21, 2016. Last Edited By: Radha Ferrari on Nov 26, 2016 11:20 (3) Hypernatremia ICD Codes: E87.0 - Hyperosmolality and hypernatremia Status: Resolved Plan: Resolved with D5 and free water (4) Hypertension ICD Codes: I10 - Hypertension Status: Chronic Plan: As per hx. Hypotensive in house requiring inotropic support (Kait Loyola) Plan The exam, history, and the medical decision-making described in the above note were completed with the assistance of the PA-C. I reviewed and agree with the findings presented. I attest that I had a [id number] encounter with the patient on the same day, and personally performed and documented my assessment and findings in the medical record. (Kesha Ferrari MD) Problem Qualifiers (1) Hypertension: Qualified Codes: I10 - Essential (primary) hypertension Kait Loyola Dec 03, 2016 10:31 Kesha Ferrari MD Dec 12, 2016 16:52
--- NOTE | 2016-12-03 10:37 | HHI.IDPN ---
Note Infectious Disease Note Vital Signs Date Time Temp Pulse Resp B/P (MAP) Pulse Ox O2 Delivery O2 Flow Rate FiO2 12/03/16 08:24 94 40 12/03/16 08:00 98.7 73 18 93/46 (62) 93 12/03/16 08:00 73 12/03/16 08:00 40 12/03/16 06:00 73 12/03/16 06:00 73 95/50 12/03/16 04:00 40 12/03/16 04:00 85 12/03/16 04:00 99.6 85 18 96/46 (63) 96 12/03/16 03:32 93 96/47 12/03/16 02:00 99 12/03/16 01:00 92 106/48 12/03/16 01:00 92 106/48 12/03/16 00:30 130 104/57 12/03/16 00:00 40 12/03/16 00:00 87 12/03/16 00:00 72 94/46 (62) 12/03/16 00:00 99.0 87 19 94/46 (62) 94 12/03/16 00:00 87 94/46 12/02/16 22:00 78 12/02/16 20:00 40 12/02/16 20:00 78 12/02/16 20:00 99.4 78 18 106/53 (70) 97 12/02/16 19:35 96 40 12/02/16 18:00 77 12/02/16 16:09 93 40 12/02/16 16:00 50 12/02/16 16:00 98.4 78 18 96/50 (65) 94 12/02/16 16:00 78 12/02/16 14:08 94 40 12/02/16 14:00 74 12/02/16 12:48 71 103/55 12/02/16 12:00 50 12/02/16 12:00 71 12/02/16 12:00 97.5 71 18 96/51 (66) 96 12/02/16 10:57 84 97/52 12/02/16 10:31 96 40 Laboratory Tests Test 12/02/16 15:57 12/03/16 06:20 Potassium Level 3.1 MEQ/L 3.7 MEQ/L White Blood Count 31.9 TH/MM3 Red Blood Count 3.13 MIL/MM3 Hemoglobin 8.9 GM/DL Hematocrit 26.8 % Mean Corpuscular Volume 85.6 FL Mean Corpuscular Hemoglobin 28.4 PG Mean Corpuscular Hemoglobin Concent 33.1 % Red Cell Distribution Width 16.7 % Platelet Count 112 TH/MM3 Mean Platelet Volume 11.9 FL Neutrophils (%) (Auto) 93.6 % Lymphocytes (%) (Auto) 3.0 % Monocytes (%) (Auto) 3.1 % Eosinophils (%) (Auto) 0.1 % Basophils (%) (Auto) 0.2 % Neutrophils # (Auto) 29.8 TH/MM3 Lymphocytes # (Auto) 1.0 TH/MM3 Monocytes # (Auto) 1.0 TH/MM3 Eosinophils # (Auto) 0.0 TH/MM3 Basophils # (Auto) 0.1 TH/MM3 CBC Comment AUTO DIFF Differential Total Cells Counted 100 Neutrophils % (Manual) 94 % Band Neutrophils % 3 % Lymphocytes % 2 % Monocytes % 1 % Neutrophils # (Manual) 30.9 TH/MM3 Nucleated Red Blood Cells 1 /100 WBC Differential Comment FINAL DIFF MANUAL Dohle Bodies PRESENT Platelet Estimate LOW Platelet Morphology Comment ENLARGED Acanthocytes OCC Keratocytes 1+ Blood Urea Nitrogen 27 MG/DL Creatinine 1.45 MG/DL Random Glucose 77 MG/DL Total Protein 5.4 GM/DL Albumin 1.6 GM/DL Calcium Level 7.5 MG/DL Phosphorus Level 4.1 MG/DL Magnesium Level 1.8 MG/DL Alkaline Phosphatase 116 U/L Aspartate Amino Transf (AST/SGOT) 35 U/L Alanine Aminotransferase (ALT/SGPT) 15 U/L Total Bilirubin 1.0 MG/DL Sodium Level 144 MEQ/L Chloride Level 117 MEQ/L Carbon Dioxide Level 15.3 MEQ/L Anion Gap 12 MEQ/L Estimat Glomerular Filtration Rate 34 ML/MIN Digoxin Level 1.0 NG/ML Laboratory Tests Test 12/01/16 15:30 12/01/16 22:00 12/02/16 03:30 12/03/16 06:20 Hemoglobin 8.7 GM/DL 8.8 GM/DL 8.6 GM/DL 8.9 GM/DL Hematocrit 26.1 % 26.7 % 26.4 % 26.8 % White Blood Count 35.0 TH/MM3 31.9 TH/MM3 Red Blood Count 3.11 MIL/MM3 3.13 MIL/MM3 Mean Corpuscular Volume 84.8 FL 85.6 FL Mean Corpuscular Hemoglobin 27.7 PG 28.4 PG Mean Corpuscular Hemoglobin Concent 32.6 % 33.1 % Red Cell Distribution Width 16.4 % 16.7 % Platelet Count 111 TH/MM3 112 TH/MM3 Mean Platelet Volume 11.8 FL 11.9 FL Neutrophils (%) (Auto) 93.8 % 93.6 % Lymphocytes (%) (Auto) 3.1 % 3.0 % Monocytes (%) (Auto) 2.7 % 3.1 % Eosinophils (%) (Auto) 0.2 % 0.1 % Basophils (%) (Auto) 0.2 % 0.2 % Neutrophils # (Auto) 32.8 TH/MM3 29.8 TH/MM3 Lymphocytes # (Auto) 1.1 TH/MM3 1.0 TH/MM3 Monocytes # (Auto) 1.0 TH/MM3 1.0 TH/MM3 Eosinophils # (Auto) 0.1 TH/MM3 0.0 TH/MM3 Basophils # (Auto) 0.1 TH/MM3 0.1 TH/MM3 CBC Comment AUTO DIFF AUTO DIFF Differential Total Cells Counted 100 100 Neutrophils % (Manual) 69 % 94 % Band Neutrophils % 22 % 3 % Lymphocytes % 4 % 2 % Monocytes % 1 % 1 % Eosinophils % 4 % Neutrophils # (Manual) 31.9 TH/MM3 30.9 TH/MM3 Nucleated Red Blood Cells 1 /100 WBC 1 /100 WBC Differential Comment FINAL DIFF MANUAL FINAL DIFF MANUAL Platelet Estimate LOW LOW Platelet Morphology Comment ENLARGED ENLARGED Ovalocytes 1+ Acanthocytes 1+ OCC Keratocytes OCC 1+ Dohle Bodies PRESENT Laboratory Tests Test 12/01/16 15:30 12/01/16 18:23 12/02/16 03:30 12/02/16 15:57 Blood Urea Nitrogen 34 MG/DL 33 MG/DL Creatinine 1.60 MG/DL 1.73 MG/DL Random Glucose 117 MG/DL 106 MG/DL Calcium Level 8.0 MG/DL 7.5 MG/DL Sodium Level 140 MEQ/L 142 MEQ/L Potassium Level 3.1 MEQ/L 3.0 MEQ/L 3.1 MEQ/L Chloride Level 111 MEQ/L 113 MEQ/L Carbon Dioxide Level 19.1 MEQ/L 15.4 MEQ/L Anion Gap 10 MEQ/L 14 MEQ/L Estimat Glomerular Filtration Rate 31 ML/MIN 28 ML/MIN Lactic Acid Level 1.4 mmol/L 1.4 mmol/L Total Protein 5.7 GM/DL Albumin 2.0 GM/DL Phosphorus Level 4.6 MG/DL Magnesium Level 2.0 MG/DL Alkaline Phosphatase 94 U/L Aspartate Amino Transf (AST/SGOT) 31 U/L Alanine Aminotransferase (ALT/SGPT) 19 U/L Total Bilirubin 0.8 MG/DL Ammonia 15 MCMOL/L Test 12/03/16 06:20 Blood Urea Nitrogen 27 MG/DL Creatinine 1.45 MG/DL Random Glucose 77 MG/DL Total Protein 5.4 GM/DL Albumin 1.6 GM/DL Calcium Level 7.5 MG/DL Phosphorus Level 4.1 MG/DL Magnesium Level 1.8 MG/DL Alkaline Phosphatase 116 U/L Aspartate Amino Transf (AST/SGOT) 35 U/L Alanine Aminotransferase (ALT/SGPT) 15 U/L Total Bilirubin 1.0 MG/DL Sodium Level 144 MEQ/L Potassium Level 3.7 MEQ/L Chloride Level 117 MEQ/L Carbon Dioxide Level 15.3 MEQ/L Anion Gap 12 MEQ/L Estimat Glomerular Filtration Rate 34 ML/MIN Microbiology Date/Time Source Procedure Growth Status 11/30/16 23:00 Stool Stool Stool Occult Blood (MAXINE) - Final HEMOCCULT POSITIVE Complete SUBJECTIVE : Patient is on a ventilator , intubated patient has no fever Patient is sedated patient is on vasopressor I areli RN MEDS: reviewed . Antibiotics : iv zosyn , iv diflucan PHYSICAL EXAM GENERAL: Patient is intubated / ventilator HEENT: ETT . No sinus tenderness . No icterus. NECK: Supple. no tenderness LUNGS: Transmitted upper airway sounds . Crackles bilateral . CARDIAC: Regular rate and rhythm ABDOMEN: Slightly distended , surgical wound is clean , intact and dry . EXTREMITIES: No edema . No tenderness SKIN: No rash. NEURO : Sedated . CLINICAL IMPRESSION: A 86-year-old lady status post exploratory lap , right colectomy for cecal volvulus. Severe sepsis with septic shock Acute VDRF Acute severe Baceterial pneumonia caused by Aspiration Intra- abdominal sepsis , following acute abdomen / Cecal volvulus , followed by exploratory lap / right hemicolectomy CVA Acute Kidney Injury Cholelithiasis, choledocholithiasis - s/p cholecystectomy ; ERCP with stone extraction 11/21 RECOMMENDATIONS : Obtain UA / urine culture , blood culture x 2 sets , endotracheal tube aspirate for sputum c&S Continue iv zosyn and iv diflucan Continue supportive measures Monitor cultures , ADJUST ANTIBIOTICS INDICATED ID will continue to follow Brodie Bernstein MD Dec 03, 2016 10:37
--- NOTE | 2016-12-03 10:50 | HHI.GIFU ---
Subjective Remarks Sedated on vent/CPAP. No distress. Green liquid stool today. Nurse reports no further melena since yesterday. (Caprice Echavarria) Objective Vitals I&O Vital Signs Date Time Temp Pulse Resp B/P (MAP) Pulse Ox O2 Delivery O2 Flow Rate FiO2 12/03/16 08:24 94 40 12/03/16 08:00 98.7 73 18 93/46 (62) 93 12/03/16 08:00 73 12/03/16 08:00 40 12/03/16 06:00 73 12/03/16 06:00 73 95/50 12/03/16 04:00 40 12/03/16 04:00 85 12/03/16 04:00 99.6 85 18 96/46 (63) 96 12/03/16 03:32 93 96/47 12/03/16 02:00 99 12/03/16 01:00 92 106/48 12/03/16 01:00 92 106/48 12/03/16 00:30 130 104/57 12/03/16 00:00 40 12/03/16 00:00 87 12/03/16 00:00 72 94/46 (62) 12/03/16 00:00 99.0 87 19 94/46 (62) 94 12/03/16 00:00 87 94/46 12/02/16 22:00 78 12/02/16 20:00 40 12/02/16 20:00 78 12/02/16 20:00 99.4 78 18 106/53 (70) 97 12/02/16 19:35 96 40 12/02/16 18:00 77 12/02/16 16:09 93 40 12/02/16 16:00 50 12/02/16 16:00 98.4 78 18 96/50 (65) 94 12/02/16 16:00 78 12/02/16 14:08 94 40 12/02/16 14:00 74 12/02/16 12:48 71 103/55 12/02/16 12:00 50 12/02/16 12:00 71 12/02/16 12:00 97.5 71 18 96/51 (66) 96 12/02/16 10:57 84 97/52 12/02/16 10:31 96 40 I/O 12/02/16 12/02/16 12/02/16 12/03/16 12/03/16 12/03/16 07:00 15:00 23:00 07:00 15:00 23:00 Intake Total 1501 ml 360 ml 1258.1 ml 1749 ml 15 ml Output Total 2250 ml 1150 ml 650 ml Balance -749 ml 360 ml 108.1 ml 1099 ml 15 ml IV Total 1501 ml 360 ml 1258.1 ml 1749 ml 15 ml Output Urine Total 350 ml 500 ml 500 ml Stool Total 1600 ml 450 ml 150 ml Gastric Drainage Total 300 ml 200 ml Laboratory Laboratory Tests Test 12/02/16 15:57 12/03/16 06:20 Potassium Level 3.1 3.7 White Blood Count 31.9 Red Blood Count 3.13 Hemoglobin 8.9 Hematocrit 26.8 Mean Corpuscular Volume 85.6 Mean Corpuscular Hemoglobin 28.4 Mean Corpuscular Hemoglobin Concent 33.1 Red Cell Distribution Width 16.7 Platelet Count 112 Mean Platelet Volume 11.9 Neutrophils (%) (Auto) 93.6 Lymphocytes (%) (Auto) 3.0 Monocytes (%) (Auto) 3.1 Eosinophils (%) (Auto) 0.1 Basophils (%) (Auto) 0.2 Neutrophils # (Auto) 29.8 Lymphocytes # (Auto) 1.0 Monocytes # (Auto) 1.0 Eosinophils # (Auto) 0.0 Basophils # (Auto) 0.1 CBC Comment AUTO DIFF Differential Total Cells Counted 100 Neutrophils % (Manual) 94 Band Neutrophils % 3 Lymphocytes % 2 Monocytes % 1 Neutrophils # (Manual) 30.9 Nucleated Red Blood Cells 1 Differential Comment FINAL DIFF MANUAL Dohle Bodies PRESENT Platelet Estimate LOW Platelet Morphology Comment ENLARGED Acanthocytes OCC Keratocytes 1+ Blood Urea Nitrogen 27 Creatinine 1.45 Random Glucose 77 Total Protein 5.4 Albumin 1.6 Calcium Level 7.5 Phosphorus Level 4.1 Magnesium Level 1.8 Alkaline Phosphatase 116 Aspartate Amino Transf (AST/SGOT) 35 Alanine Aminotransferase (ALT/SGPT) 15 Total Bilirubin 1.0 Sodium Level 144 Chloride Level 117 Carbon Dioxide Level 15.3 Anion Gap 12 Estimat Glomerular Filtration Rate 34 Digoxin Level 1.0 Date/Time Source Procedure Growth Status 11/29/16 14:55 Blood Peripheral Aerobic Blood Culture - Preliminary NO GROWTH IN 3 DAYS Resulted 11/29/16 14:55 Blood Peripheral Anaerobic Blood Culture - Final QNS - SEE AEROBE REPORT Resulted 11/30/16 23:00 Stool Stool Stool Occult Blood (MAXINE) - Final HEMOCCULT POSITIVE Complete Imaging Last Impressions Chest X-Ray 12/03/16 0600 Signed Impressions: Service Date/Time: Saturday, December 03, 2016 04:16 - CONCLUSION: 1. Increasing basilar airspace disease since December 01. Small effusions. Romario Kauffman MD Chest CT 12/01/16 0000 Signed Impressions: Service Date/Time: Thursday, December 01, 2016 08:13 - CONCLUSION: 1. Severe emphysema with bilateral airspace consolidation in a patchy distribution involving the upper and lower lobes but most severe in the left lower lobe. There is also a trace left pleural effusion. Imaging findings are nonspecific but infection or aspiration should be considerations. 2. Coronary artery calcification. Giovani Lopez MD Abdomen/Pelvis CT 12/01/16 0000 Signed Impressions: Service Date/Time: Thursday, December 01, 2016 08:13 - CONCLUSION: 1. No acute finding is identified to explain the blood in stool. There are postsurgical findings suggesting prior right hemicolectomy. Colon contains a fluid and air and there is sigmoid diverticulosis. 2. Small volume of free fluid in the abdomen and pelvis. Also, there is mild diffuse subcutaneous edema. Giovani Lopez MD Head CT 11/27/16 0000 Signed Impressions: Service Date/Time: Sunday, November 27, 2016 14:47 - CONCLUSION: 1. Questionable edema or subacute infarct in the left parietal deep white matter. This would be better evaluated with MRI. No intracranial hemorrhage or significant mass effect. Romario Kauffman MD Brain MRI 11/27/16 0000 Signed Impressions: Service Date/Time: Sunday, November 27, 2016 18:10 - CONCLUSION: 1. Moderate periventricular and subcortical white matter small vessel ischemic changes bilaterally. 2. 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 3. No acute infarct, acute hemorrhage, mass effect or extra-axial fluid collection. 4. Fluid level within sphenoid sinuses. 5. Fluid within the mastoid air cells bilaterally. Hasmukh Oakes MD Abdomen Ultrasound 11/23/16 0000 Signed Impressions: Service Date/Time: Wednesday, November 23, 2016 19:33 - CONCLUSION: 1. Somewhat limited study. Proximal superior mesenteric artery appears patent. 2. Mildly elevated flow velocities in the celiac and hepatic arteries of doubtful clinical significance. Giovani Martinez MD GI Procedure 11/21/16 0000 Signed Impressions: Service Date/Time: Monday, November 21, 2016 10:44 - CONCLUSION: ERCP as above. Reymundo Wilburn MD FACR Physical Exam HEENT: Normocephalic; atraumatic; right eye prosthesis. Orotracheally intubated. CHEST: CTA CARDIAC: Irregular rhythm. ABDOMEN: Obese, mild distention, midline incision line well approximated with triston, hypoactive bowel sounds. Rectal bag/tubing with liquid green stool. EXTREMITIES: Trace peripheral edema. SKIN: Normal; no rash; no jaundice. SUPPLY ASSISTANT: Sedated. (Caprice Echavarria) Assessment and Plan Plan ASSESSMENT - Melena, Hemoccult (+). Passing melanotic/maroon stool with clots on 11/30 and 12/01. No blood from NGT (yellowish drainage). Now with dark green liquid stool. Plan is for EGD today to r/o UGIB. 8.9/26.8. PPI - Anemia. S/P 3 units. HH 8.9/26.8. PPI - Ileus, Abdominal distention in paitent with recent right colectomy. CT scan abdomen and pelvis without contrast (12/01/16)----> No acute finding is identified to explain the blood in the stool. There are postsurgical findings suggesting prior right hemicolectomy. Colon contains a fluid and air and there is sigmoid diverticulosis. Reglan. - Diarrhea. CDiff negative. - Recent cecal volvulus, S/p exploratory laparotomy with right colectomy, cholecystomy, for cecal volvulus and gallstones and CBD stones (11/24/16) with Dr. Polanco. - Choledocholithiasis. S/P ERCP with removal of stones (11/21/16)---> ampulla revealed a prior sphincterotomy, 3 stones in the major papilla, s/p stone extraction with balloon sweep several times. LFT stable. T. Bili 1.0, AST 35, ALT 15, ALk PHosph 116. - Thrombocytopenia. Platelets 112,000 - Sepsis/Leukocytosis, from intra-abdominal source, leukemoid reaction. Blood cx no growth in 3/5 days. Still with persistent leukocytosis, WBC 31.9. ID following. Zosyn, Diflucan. - Respiratory failure, COPD, pulmonary htn. On CPAP. Per [facility] - Acute kidney injury with electrolyte abnormalities. renal following. - Afib, Systolic heart failure. Anticoagulation is on hold secondary to GI bleeding. - PAD, CVA per attending. PLAN - Plan for egd today - Obtain consents - NPO - Continue PPI - Cont. Reglan - Monitor labs - Supportive care - Consider colonoscopy as outpt once she recovers from recent colectomy - Further recommendations to follow based on results of above - Patient seen and examined by Dr. Arredondo and myself and this note is written on his behalf. (Caprice Echavarria) Plan Patient was seen on examined, and agree with the above note, patient had upper endoscopy today which showed gastritis otherwise no active bleeding, We will consider colonoscopy if there is more active bleeding, meanwhile supportive care and continue PPI (Ian Arredondo MD) Caprice Echavarria Dec 03, 2016 10:50 Ian Arredondo MD Dec 03, 2016 15:08
[2016-12-03] MEDS: FLUCONAZOLE 400 MG PREMIX BAG 200 ML IV SCH (12:00)
[2016-12-03] MEDS: NOREPINEPHRINE INJ 4 MG in SODIUM CHLOR 0.9% 250 ML INJ 246 ML IV PRN (12:20)
[2016-12-03 14:12] LABS: BLOOD, URINE MOD (NEG); GLUCOSE,URINE NEG (NEG); GRANULAR CAST, URINE 7 /lpf; KETONE, URINE TRACE mg/dL (NEG); NITRITE,URINE NEG (NEG); SQUAMOUS EPITHELIAL CELL URINE 1 /hpf (0-5); URINE COLOR YELLOW (YELLW/STRAW)
[2016-12-03 14:14] LABS: COMMENT (UR) CATH-CULT NOT IND; CULTURE IF INDICATED CATH CULTURE NOT IND
--- NOTE | 2016-12-03 14:46 | HHI.PR ---
Subjective Subjective Notes Continues to be ventilated. She is about to undergo EGD. Objective Vitals/I&O Vital Signs Date Time Temp Pulse Resp B/P (MAP) Pulse Ox O2 Delivery O2 Flow Rate FiO2 12/03/16 12:20 92 99/56 12/03/16 12:00 99.1 18 98 12/03/16 12:00 40 11/30/16 14:30 Non-Rebreather 12 Labs Laboratory Tests Test 12/02/16 15:57 12/03/16 06:20 12/03/16 13:25 Potassium Level 3.1 3.7 White Blood Count 31.9 Red Blood Count 3.13 Hemoglobin 8.9 Hematocrit 26.8 Mean Corpuscular Volume 85.6 Mean Corpuscular Hemoglobin 28.4 Mean Corpuscular Hemoglobin Concent 33.1 Red Cell Distribution Width 16.7 Platelet Count 112 Mean Platelet Volume 11.9 Neutrophils (%) (Auto) 93.6 Lymphocytes (%) (Auto) 3.0 Monocytes (%) (Auto) 3.1 Eosinophils (%) (Auto) 0.1 Basophils (%) (Auto) 0.2 Neutrophils # (Auto) 29.8 Lymphocytes # (Auto) 1.0 Monocytes # (Auto) 1.0 Eosinophils # (Auto) 0.0 Basophils # (Auto) 0.1 CBC Comment AUTO DIFF Differential Total Cells Counted 100 Neutrophils % (Manual) 94 Band Neutrophils % 3 Lymphocytes % 2 Monocytes % 1 Neutrophils # (Manual) 30.9 Nucleated Red Blood Cells 1 Differential Comment FINAL DIFF MANUAL Dohle Bodies PRESENT Platelet Estimate LOW Platelet Morphology Comment ENLARGED Acanthocytes OCC Keratocytes 1+ Blood Urea Nitrogen 27 Creatinine 1.45 Random Glucose 77 Total Protein 5.4 Albumin 1.6 Calcium Level 7.5 Phosphorus Level 4.1 Magnesium Level 1.8 Alkaline Phosphatase 116 Aspartate Amino Transf (AST/SGOT) 35 Alanine Aminotransferase (ALT/SGPT) 15 Total Bilirubin 1.0 Sodium Level 144 Chloride Level 117 Carbon Dioxide Level 15.3 Anion Gap 12 Estimat Glomerular Filtration Rate 34 Digoxin Level 1.0 Urine Color YELLOW Urine Turbidity HAZY Urine pH 6.0 Urine Specific [place] 1.021 Urine Protein 100 Urine Glucose (UA) NEG Urine Ketones TRACE Urine Occult Blood MOD Urine Nitrite NEG Urine Bilirubin NEG Urine Urobilinogen LESS THAN 2.0 Urine Leukocyte Esterase NEG Urine RBC 3 Urine WBC 6 Urine Squamous Epithelial Cells 1 Urine Amorphous Sediment OCC Urine Granular Casts 7 Microscopic Urinalysis Comment CATH-CULT NOT IND Date/Time Source Procedure Growth Status 11/29/16 14:55 Blood Peripheral Aerobic Blood Culture - Preliminary NO GROWTH IN 4 DAYS Resulted 11/29/16 14:55 Blood Peripheral Anaerobic Blood Culture - Final QNS - SEE AEROBE REPORT Resulted 11/30/16 23:00 Stool Stool Stool Occult Blood (MAXINE) - Final HEMOCCULT POSITIVE Complete Radiology Last Impressions Chest X-Ray 11/24/16 0000 Signed Impressions: Service Date/Time: Thursday, November 24, 2016 11:57 - CONCLUSION: 1. Interval placement of nasogastric catheter with tip beyond the GE junction omitted from the image. 2. Persistent diffuse coarse interstitial prominence likely reflecting interstitial edema/pneumonia superimposed on chronic interstitial changes. 3. Stable mild bibasilar airspace disease, likely atelectasis. Sam Buckner MD Abdomen/Pelvis CT 11/23/16 0000 Signed Impressions: Service Date/Time: Wednesday, November 23, 2016 21:46 - CONCLUSION: 1. 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 2. Mild head pancreatitis possible in the proper clinical setting. Patient has recently had ERCP and bile duct stone extraction. 3. Bibasilar pneumonia developing. Tiny pleural effusion on the right. 4. Chronic findings otherwise. Giovani Martinez MD Abdomen Ultrasound 11/23/16 0000 Signed Impressions: Service Date/Time: Wednesday, November 23, 2016 19:33 - CONCLUSION: 1. Somewhat limited study. Proximal superior mesenteric artery appears patent. 2. Mildly elevated flow velocities in the celiac and hepatic arteries of doubtful clinical significance. Giovani Martinez MD GI Procedure 11/21/16 0000 Signed Impressions: Service Date/Time: Monday, November 21, 2016 10:44 - CONCLUSION: ERCP as above. Reymundo Wilburn MD FACR Chest CT 11/20/16 1407 Signed Impressions: Service Date/Time: Sunday, November 20, 2016 15:13 - CONCLUSION: 1. Severe underlying emphysema. 2. Status post median sternotomy with postsurgical changes. Maikol Paredes MD Narrative Exam Ventilated Abd: soft, inc c/d/i, NGT in place, mod distention A/P Assessment and Plan 86 yo F POD 8 s/p ex lap right colectomy, cholecystectomy, for cecal volvulus and common duct stones. Continues to be critical with poor prognosis. I would like to ask palliative care to be involved to help with continued decision making. She would require tracheostomy in the next couple of days as she failed trial of extubation Saturday. Appreciate critical care. Bryant Polanco MD Dec 03, 2016 14:46
--- NOTE | 2016-12-03 15:10 | PD.OP ---
cc: Bryant Polanco MD Operative Report Date of Surgery: Nov 24, 2016 Preoperative Diagnosis: (1) Cecal volvulus (2) S/P ERCP Postoperative Diagnosis: (1) S/P ERCP (2) Cecal volvulus Procedure: Exploratory laparotomy, right colectomy, cholecystectomy Anesthesia: GETA Surgeon: Bryant Polanco Client Professional(s): Matt Operation and Findings: EBL: 100 cc Operative findings: The patient had cecal volvulus with severe dilation of the cecum and right colon. It was twisted at the hepatic flexure. There did not appear to be ischemia, however due to the patient's critical illness and the size of the cecum I did opt to proceed with colectomy. The gallbladder had chronic inflammation and gallstones. Procedure in detail: The patient was taken to the operating room placed in the supine position. General endotracheal anesthesia was induced. The abdomen was prepped and draped in usual sterile fashion and a surgical timeout was performed to verify correct patient procedure and site. A midline laparotomy incision was created and carried out down through the fascia with electrocautery. The peritoneum was entered sharply. Immediately visible was significantly dilated cecum and right colon. The patient had had a previous appendectomy. The white line of T[place]t was taken down laterally as well as the hepatic flexure using electrocautery and the Harmonic scalpel as necessary. Due to the size of the cecum I did proceed with hemicolectomy. The gastrocolic omentum was divided in the avascular plane near the transverse colon to midway down the transverse colon. A site was chosen in the proximal transverse colon and the colon was divided with the RADHA blue load stapler. The terminal ileum was divided with the RADHA and a blue load stapler. The mesentery was taken down using the Harmonic scalpel as well as clamps and 0 Vicryl ties on the ileocolic and right colic vessels. The specimen was removed. An ileocolic anastomosis was created [id number] functional end-to-end fashion. The corners of the antimesenteric portion of the ileum and colon were removed and a RADHA blue load stapler fired. There was no bleeding at the staple lines. Allis clamps were placed on the common enterostomy and the enterostomy was closed with TX 60 blue load stapler. The mesentery was closed with running 3-0 silk suture. There was no tension or hematoma at the anastomosis. Attention then was turned to the gallbladder. The dome of the gallbladder was grasped and the gallbladder began to be removed from the gallbladder fossa with electrocautery. There was some mild bleeding at the liver which was cauterized. The infundibulum of the gallbladder was carefully dissected free using one dissection. The cystic artery was seen to be clearly entering the gallbladder was divided with the Harmonic scalpel. Finally the gallbladder was attached by only the cystic duct and this was clamped and transected. This was tied with a 2-0 silk suture. The gallbladder was removed from the abdomen. The abdomen was then copiously irrigated. The fascia was closed with running # 1 looped PDS. Skin triston were applied. A amarilys dressing was applied to the emergent nature of the procedure and colon surgery. Bryant Polanco MD Dec 03, 2016 15:10
--- NOTE | 2016-12-03 15:11 | PD.PROCEDR ---
GI Procedure PROCEDURE PERFORMED Upper endoscopy INDICATION FOR PROCEDURE Anemia, melena PROCEDURE: The procedure, risks and benefits were discussed with Ms. Forde and informed consent was obtained. Anesthesia sedated her with Diprivan. She was placed in the left lateral decubitus position. EGD: The Pentax videoscope was introduced through the oropharynx and advanced to the second portion of the duodenum under direct visualization. Retroflexion was performed in the stomach. FINDINGS: Mild to moderate gastritis, few area of NG tube trauma ESTIMATED BLOOD LOSS: None SPECIMENS REMOVED: None COMPLICATIONS: None IMPRESSION: No active bleeding, gastritis, possible NG tube trauma PLAN: Continue PPI start using the NG tube Ian Arredondo MD Dec 03, 2016 15:11
[2016-12-03] MEDS: DILTIAZEM INJ 125 MG in SODIUM CHLORIDE 0.9% INJ 100 ML IV PRN (15:28)
[2016-12-03] MEDS: fentaNYL DRIP 250 ML IV PRN (17:13)
[2016-12-04] VITALS (41 sets, daily range): BP systolic 110–166; BP diastolic 54–84; PULSE 71–99; RESP 18–38; TEMP 97.6–98; O2SAT 86–99
[2016-12-04] MEDS: URSODIOL 300 MG CAP PO SCH ×3 (00:14→20:18)
[2016-12-04] MEDS: INSULIN NovoLIN REGULAR SUPPLEMENTAL SCALE SQ SCH ×6 (00:15→20:15)
[2016-12-04] MEDS: POTASSIUM CHLORIDE IV SCH ×5 (00:16→16:24)
[2016-12-04] MEDS: SODIUM BICARBONATE IV SCH ×5 (00:16→16:24)
[2016-12-04] MEDS: [UNRECOGNIZED DRUG - OTHER] IV SCH ×2 (00:16→12:46)
[2016-12-04] MEDS: RESP: ALBUTEROL 2.5 MG/IPRATROPIUM 0.5 MG NEB (SCH) NEB ×4 (03:27→20:56)
[2016-12-04] MEDS: PIPERACIL-TAZO 2.25 GM PREMIX 50 ML IV SCH ×4 (03:36→20:19)
[2016-12-04] MEDS: NOREPINEPHRINE INJ 4 MG in SODIUM CHLOR 0.9% 250 ML INJ 246 ML IV PRN (03:37)
[2016-12-04] MEDS: PROPOFOL 1000 MG/100 ML INJ 100 ML IV PRN (03:38)
[2016-12-04] MEDS: FREE WATER G-TUBE SCH ×3 (05:32→20:18)
[2016-12-04] MEDS: ARTIFICIAL TEARS OPTH SOLN 15 ML BTL LEFT EYE SCH ×3 (05:33→20:19)
[2016-12-04] MEDS: DILTIAZEM HCL 30 MG TAB PO SCH ×4 (05:33→17:24)
[2016-12-04] MEDS: METOCLOPRAMIDE HCL 10 MG/2 ML VIAL IV PUSH SCH ×3 (05:35→21:41)
[2016-12-04 06:06] LABS: AUTOMATED NEUTROPHIL # 23.7 TH/MM3 (1.8-7.7); BASOPHIL # 0.1 TH/MM3 (0-0.2); BASOPHIL % 0.4 % (0.0-2.0); EOSINOPHIL # 0.1 TH/MM3 (0-0.4); EOSINOPHIL % 0.2 % (0.0-4.0); HEMATOCRIT 28.5 % (35.0-46.0); HEMO FLAGS DIFF FINAL; LYMPH % 3.7 % (9.0-44.0); LYMPHOCYTE # 0.9 TH/MM3 (1.0-4.8); MEAN CELL VOLUME 85.3 FL (80.0-100.0); MEAN CORPUSCULAR HEMOGLOBIN 28.1 PG (27.0-34.0); MEAN CORPUSCULAR HGB CONC 32.9 % (32.0-36.0); MONO % 2.6 % (0.0-8.0); NEUT % 93.1 % (16.0-70.0); PLATELET COUNT 122 TH/MM3 (150-450); RED BLOOD COUNT 3.34 MIL/MM3 (4.00-5.30); RED CELL DISTRIBUTION WIDTH 16.7 % (11.6-17.2); WHITE BLOOD COUNT 25.5 TH/MM3 (4.0-11.0)
[2016-12-04 06:23] LABS: BICARBONATE 17.8 MEQ/L (21.0-32.0); POTASSIUM 3.8 MEQ/L (3.5-5.1)
[2016-12-04] MEDS: LACTULOSE SYRUP 20 GM/30 ML CUP NG SCH ×2 (09:06→20:17)
[2016-12-04] MEDS: PANTOPRAZOLE SODIUM 40 MG VIAL IV PUSH SCH ×2 (09:06→20:18)
[2016-12-04] MEDS: SODIUM CHLORIDE 0.9% FLUSH 10 ML FLUSH IV FLUSH SCH ×2 (09:07→20:19)
[2016-12-04] MEDS ORDERED: DILTIAZEM INJ 125 MG in SODIUM CHLORIDE 0.9% INJ 100 ML IV PRN (09:15)
[2016-12-04] MEDS ORDERED: NOREPINEPHRINE INJ 4 MG in SODIUM CHLOR 0.9% 250 ML INJ 246 ML IV PRN (09:15)
--- NOTE | 2016-12-04 09:23 | HHI.GIFU ---
Subjective Remarks Resting in bed, sedated on vent. No distress. No active bleeding. Tolerating TF so far. (Caprice Echavarria) Objective Vitals I&O Vital Signs Date Time Temp Pulse Resp B/P (MAP) Pulse Ox O2 Delivery O2 Flow Rate FiO2 12/04/16 08:08 94 40 12/04/16 06:00 86 12/04/16 04:00 94 12/04/16 04:00 97.6 95 18 114/64 (81) 97 12/04/16 04:00 40 12/04/16 03:37 94 126/61 12/04/16 03:28 97 40 12/04/16 02:00 86 12/04/16 01:40 97 40 12/04/16 00:00 40 12/04/16 00:00 94 12/04/16 00:00 98.0 88 18 129/64 (85) 97 12/03/16 23:09 97 40 12/03/16 22:00 76 12/03/16 20:41 97 40 12/03/16 20:00 98.3 82 18 126/60 (82) 97 12/03/16 20:00 40 12/03/16 20:00 75 12/03/16 18:00 80 12/03/16 16:00 40 12/03/16 16:00 98.9 85 18 110/55 (73) 98 12/03/16 16:00 85 12/03/16 15:44 98 40 12/03/16 15:28 83 97/51 12/03/16 14:00 84 12/03/16 12:20 92 99/56 12/03/16 12:00 99.1 83 18 98/54 (69) 98 12/03/16 12:00 40 12/03/16 12:00 79 12/03/16 11:43 91 40 12/03/16 10:00 71 12/03/16 10:00 78 96/48 I/O 12/03/16 12/03/16 12/03/16 12/04/16 12/04/16 12/04/16 07:00 15:00 23:00 07:00 15:00 23:00 Intake Total 1749 ml 1113 ml 778 ml Output Total 650 ml 425 ml 25 ml Balance 1099 ml 1113 ml 353 ml -25 ml IV Total 1749 ml 1113 ml 628 ml Other 150 ml Output Urine Total 500 ml 375 ml 25 ml Stool Total 150 ml 50 ml 0 ml Laboratory Laboratory Tests Test 12/03/16 13:25 12/04/16 05:25 Urine Color YELLOW Urine Turbidity HAZY Urine pH 6.0 Urine Specific [place] 1.021 Urine Protein 100 Urine Glucose (UA) NEG Urine Ketones TRACE Urine Occult Blood MOD Urine Nitrite NEG Urine Bilirubin NEG Urine Urobilinogen LESS THAN 2.0 Urine Leukocyte Esterase NEG Urine RBC 3 Urine WBC 6 Urine Squamous Epithelial Cells 1 Urine Amorphous Sediment OCC Urine Granular Casts 7 Microscopic Urinalysis Comment CATH-CULT NOT IND White Blood Count 25.5 Red Blood Count 3.34 Hemoglobin 9.4 Hematocrit 28.5 Mean Corpuscular Volume 85.3 Mean Corpuscular Hemoglobin 28.1 Mean Corpuscular Hemoglobin Concent 32.9 Red Cell Distribution Width 16.7 Platelet Count 122 Mean Platelet Volume 11.2 Neutrophils (%) (Auto) 93.1 Lymphocytes (%) (Auto) 3.7 Monocytes (%) (Auto) 2.6 Eosinophils (%) (Auto) 0.2 Basophils (%) (Auto) 0.4 Neutrophils # (Auto) 23.7 Lymphocytes # (Auto) 0.9 Monocytes # (Auto) 0.7 Eosinophils # (Auto) 0.1 Basophils # (Auto) 0.1 CBC Comment DIFF FINAL Differential Comment Blood Urea Nitrogen 22 Creatinine 1.21 Random Glucose 87 Calcium Level 7.6 Sodium Level 146 Potassium Level 3.8 Chloride Level 116 Carbon Dioxide Level 17.8 Anion Gap 12 Estimat Glomerular Filtration Rate 42 Date/Time Source Procedure Growth Status 12/03/16 15:25 Blood Peripheral Aerobic Blood Culture Pending Received 12/03/16 15:25 Blood Peripheral Anaerobic Blood Culture Pending Received 11/30/16 23:00 Stool Stool Stool Occult Blood (MAXINE) - Final HEMOCCULT POSITIVE Complete 12/03/16 15:40 Sputum Endotracheal Gram Stain - Final Resulted 12/03/16 15:40 Sputum Endotracheal Sputum Culture Pending Resulted Imaging Last Impressions Chest X-Ray 12/03/16 0600 Signed Impressions: Service Date/Time: Saturday, December 03, 2016 04:16 - CONCLUSION: 1. Increasing basilar airspace disease since December 01. Small effusions. Romario Kauffman MD Chest CT 12/01/16 0000 Signed Impressions: Service Date/Time: Thursday, December 01, 2016 08:13 - CONCLUSION: 1. Severe emphysema with bilateral airspace consolidation in a patchy distribution involving the upper and lower lobes but most severe in the left lower lobe. There is also a trace left pleural effusion. Imaging findings are nonspecific but infection or aspiration should be considerations. 2. Coronary artery calcification. Giovani Lopez MD Abdomen/Pelvis CT 12/01/16 0000 Signed Impressions: Service Date/Time: Thursday, December 01, 2016 08:13 - CONCLUSION: 1. No acute finding is identified to explain the blood in stool. There are postsurgical findings suggesting prior right hemicolectomy. Colon contains a fluid and air and there is sigmoid diverticulosis. 2. Small volume of free fluid in the abdomen and pelvis. Also, there is mild diffuse subcutaneous edema. Giovani Lopez MD Head CT 11/27/16 0000 Signed Impressions: Service Date/Time: Sunday, November 27, 2016 14:47 - CONCLUSION: 1. Questionable edema or subacute infarct in the left parietal deep white matter. This would be better evaluated with MRI. No intracranial hemorrhage or significant mass effect. Romario Kauffman MD Brain MRI 11/27/16 0000 Signed Impressions: Service Date/Time: Sunday, November 27, 2016 18:10 - CONCLUSION: 1. Moderate periventricular and subcortical white matter small vessel ischemic changes bilaterally. 2. 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 3. No acute infarct, acute hemorrhage, mass effect or extra-axial fluid collection. 4. Fluid level within sphenoid sinuses. 5. Fluid within the mastoid air cells bilaterally. Hasmukh Oakes MD Abdomen Ultrasound 11/23/16 0000 Signed Impressions: Service Date/Time: Wednesday, November 23, 2016 19:33 - CONCLUSION: 1. Somewhat limited study. Proximal superior mesenteric artery appears patent. 2. Mildly elevated flow velocities in the celiac and hepatic arteries of doubtful clinical significance. Giovani Martinez MD GI Procedure 11/21/16 0000 Signed Impressions: Service Date/Time: Monday, November 21, 2016 10:44 - CONCLUSION: ERCP as above. Reymundo Wilburn MD FACR Physical Exam HEENT: Normocephalic; atraumatic; right eye prosthesis. Orotracheally intubated. CHEST: OETT to vent, diminished CARDIAC: Irregular rhythm. ABDOMEN: Obese, mild distention, midline incision line well approximated with triston, hypoactive bowel sounds. Abdominal binder, Rectal bag/tubing with liquid green stool. EXTREMITIES: Trace peripheral edema. SKIN: Normal; no rash; no jaundice. 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 (EchavarriaCaprice Saldanacleopatra GO) Assessment and Plan Plan ASSESSMENT - Melena, Hemoccult (+). Passing melanotic/maroon stool with clots on 11/30 and 12/01. No further episodes. S/P EGD (12/03/16)---> No active bleeding, gastritis, possible NG tube trauma. HH Stable .07/06.5. Tolerating tf. - Anemia. S/P 3 units. HH .07/06.5. PPI - Ileus, Abdominal distention in paitent with recent right colectomy. CT scan abdomen and pelvis without contrast (12/01/16)----> No acute finding is identified to explain the blood in the stool. There are postsurgical findings suggesting prior right hemicolectomy. Colon contains a fluid and air and there is sigmoid diverticulosis. Reglan. + Liquid stool - Diarrhea. CDiff negative. - Recent cecal volvulus, S/p exploratory laparotomy with right colectomy, cholecystomy, for cecal volvulus and gallstones and CBD stones (11/24/16) with Dr. Polanco. - Choledocholithiasis. S/P ERCP with removal of stones (11/21/16)---> ampulla revealed a prior sphincterotomy, 3 stones in the major papilla, s/p stone extraction with balloon sweep several times. LFT stable. T. Bili 1.0, AST 35, ALT 15, ALk PHosph 116. - Thrombocytopenia. Platelets 122,000 - Sepsis/Leukocytosis, from intra-abdominal source, leukemoid reaction. Blood cx no growth in 3/5 days. Still with persistent leukocytosis, although WBC is now trending down. WBC 25.5. ID following. Zosyn, Diflucan. - Respiratory failure, COPD, pulmonary htn. On CPAP. Per [facility] - Acute kidney injury with electrolyte abnormalities. Creat 1.21. Renal following. - Afib, Systolic heart failure. Anticoagulation is on hold secondary to GI bleeding. - PAD, CVA per attending. PLAN - TF as tolerated - Continue PPI - Cont. Reglan - Monitor labs - Supportive care - Consider colonoscopy as outpt once she recovers from recent colectomy - Okay to resume anticoagulation from GI standpoint - Further recommendations to follow based on results of above - Patient seen and examined by Dr. Arredondo and myself and this note is written on his behalf. (Caprice Echavarria) Plan Patient was seen and examined, agree with the above note, there is no sign of active bleeding. Continue monitor hemoglobin, colonoscopy as an outpatient or when she is better. We will follow up as needed (Ian Arredondo MD) Caprice Echavarria Dec 04, 2016 09:23 Ian Arredondo MD Dec 04, 2016 15:36
--- NOTE | 2016-12-04 10:36 | PD.CONS ---
Consult Service Palliative Care . Consult Requested By Dr. Polanco . Primary Care Physician Thee Lambert MD . Reason for Consultation a. To assist with evaluation and management of symptoms including: Dyspnea, encephalopathy, pain b. To assist medical decision maker(s) with: better understanding of current medical conditions; weighing benefits/burdens of medical treatment options; making medical treatment decisions. HPI History of Present Illness Ms. Forde is an 86-year-old female with a history of CAD, hypertension, GERD, hyperlipidemia, chronic kidney disease, PAD, atrial fibrillation, polyps and rectocele/cystocele/vaginal prolapse. She [facility] to [facility] ED on 11/20/2016 for evaluation of chest pain and abdominal pain 2 days. She described the chest pain as sharp starting at the substernal area and radiating to the back. Per EMS, the patient reported constant, sharp LUQ that radiated to her left flank. Pain was rated 7 out of 10, worsening with palpation. Patient also reported subjective fever, generalized weakness and intermittent nausea and vomiting 2 days. Of note, the patient was admitted September 24, 2014 for choledocholithiasis; patient underwent a ERCP and MRCP with subsequent biliary stent placement-biopsies and brushings did not show carcinoma. CT of the abdomen/pelvis showed an abnormal gas pattern suspicious for ileus. CT of the chest revealed severe underlying emphysema. Patient with leukocytosis (WBC: 39.1) and elevated LFT's (Tbil 4.1, AST 293, ALT 479, ALP 378 ). Patient was started on Levaquin and Flagyl. She was admitted for further evaluation and medical management. GI was consulted. Patient having continued abdominal pain and elevated white count consistent with ascending cholangitis ERCP revealed multiple filling defects in the common bile duct balloon; sweeping of the duct revealed several stones and sludge; the duct was flushed with saline; subsequent cholangiogram was negative for any filling defect. Patient developed worsening respiratory distress on 10/23/2016. WBC remains elevated at 29.2. Afebrile. Chest x-ray with interstitial edema. Patient transferred to intensive care on NRB 11/24/2016: Dr. Polanco (surgery) discussed the CT scan with Dr. Guadarrama and radiology, it appears there is some early pneumatosis in the wall of the colon as well. Patient having persistent, severe abdominal pain. She underwent a colonoscopy on which showed showed moderate diverticulosis in the sigmoid colon and hemorrhoids, but the procedure was limited due to solid stool. WBC remains elevated at 34. Clinical recommendations to proceed with exploratory laparotomy and right colon resection with probable anastomosis/possible ostomy and cholecystostomy if stable. Dr. Polanco had a lengthy discussion with the patient and her family regarding her diagnosis and treatment options stating without operative intervention her mortality rate was nearly 100% versus 50% with operative intervention. He explained patient's recovery would likely include numerous days on mechanical ventilation, possible lengthy hospitalization and prolonged rehabilitation. Dr. Armstrong, who is familiar with the patient and family, so presented to the diagnosis, treatment options and prognosis. After a prolonged discussion with the patient and family, the decision was made to proceed with operative intervention. Status post exploratory laparotomy, right colectomy and cholecystectomy on 2016. Patient Remained intubated postoperatively secondary to atrial fibrillation with RVR overnight, placed on a Cardizem drip. Worsening kidney functioning. Patient's creatinine at baseline was 0.8 in September. Patient's creatinine was 1.59 on admission (11/20/16); creatinine now 2.01 (11/26/16). Nephrology was consulted and following. Echocardiogram with EF 40%, Mild MR, Moderate AR/TR, Severe pulmonary HTN Status post 2 units PRBC today for Hgb/HCT of 6.5/19.8. Neurology was consulted secondary to acute encephalopathy, possibly related to infection. Imaging of the brain revealed bilateral basal ganglia infarct and extensive white matter disease that may be contributing to the encephalopathic process.An EEG on 2016 showed diffuse/bilateral slowing consistent with either a moderately severe diffuse disturbance or cerebral function or bihemispheric structural abnormalities; no seizure activity was noted. Patient failed extubation after one hour on 11/30/2016 and had to be reintubated. Hgb/HCT @ 11.3/34.6 status post being transfused 1 unit packed RBCs for melena and Hgb/HCT of 7.5/22.7 Tmax on a 101.7 Patient remains persistently hypotensive postintubation. CT abdomen/pelvis revealed no acute findings to explain the blood in the stool. GI was consulted for possible EGD. CT of the chest revealed severe emphysema; bilateral upper and lower lobe infiltrate possibly related to aspiration. On 12/03/2016, the patient remains sedated on Diprivan and Fentanyl and intubated on mechanical ventilator. On Levophed and Cardizem drip. EGD showed no active bleeding, mild to moderate gastritis, possible NGT trauma. Palliative Care was consulted to assist with symptom management and to discuss with the family the benefits and burdens of her current illnesses and the options regarding future care. . Function/Cognitive Trajectory Per patient's , the patient was active and independent for all ADLs prior to this hospitalization. He states she was worked at the [employer] until she was in her early 80s. He also stated she was going to start helping at the [employer] where they worked. . Review of Systems ROS Limitations: Clinical Condition (Patient unable to participate in ROS. Information obtained through review of notes and family report.), Intubated, Altered Mental Status Constitutional: COMPLAINS OF: Pain, Generalized weakness Cardiovascular: COMPLAINS OF: Chest pain, Lower Extremity Edema Gastrointestinal: COMPLAINS OF: Abdominal pain Hematologic/Lymphatics: COMPLAINS OF: Bruising, History of transfusions Past Family Social History Coded Allergies: No Known Allergies (Unverified , 11/24/16) Past Medical History CAD HTN GERD Hyperlipidemia Chronic Kidney Disease PAD Hypercalcemia Diastolic dysfunction Polyps Rectocele/cystocele Vaginal prolapse . 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 Reported Medications Amitriptyline (Amitriptyline HCl) 10 Mg Tab 10 Mg PO HS Pantoprazole (Pantoprazole Sodium) 20 Mg Tab 20 Mg PO BID Nifedipine ER 24 HR (Nifedipine) 60 Mg Tab 60 Mg PO DAILY Atorvastatin (Atorvastatin Calcium) 80 Mg Tab 80 Mg PO HS Cilostazol 100 Mg Tab 100 Mg PO BID Hydrocodone-Acetaminophen 7.5-300 Mg Tab 1 Tab PO TID PRN Aspirin Low Dose (Aspirin) 81 Mg Chew 81 Mg CHEW DAILY . Current Medications Medications (Trade) Dose Ordered Sig/Jazzmine Route Start Time Stop Time Status Last Admin (NS Flush) 2 ml BID IV FLUSH 11/20/16 21:00 12/04/16 09:07 (Zofran Inj) 4 mg Q6H PRN IVP 11/20/16 16:15 (Narcan Inj) 0.4 mg UNSCH PRN IV 11/20/16 16:15 (Milk Of Magnesia Liq) 30 ml Q12H PRN PO 11/20/16 16:15 (Lipitor) 80 mg HS PO 11/20/16 21:00 Future Hold 11/23/16 20:42 (Actigall) 300 mg Q12HR PO 11/22/16 21:00 12/04/16 09:06 (D50w (Vial) Inj) 50 ml UNSCH PRN IV 11/24/16 12:15 (Glucagon Inj) 1 mg UNSCH PRN OTHER 11/24/16 12:15 (NovoLIN R SUPPLEMENTAL SCALE) 1 Q4H SQ 11/24/16 12:15 11/26/16 04:12 Propofol 100 ml @ 1.89 mls/hr TITRATE PRN IV 11/25/16 07:30 12/04/16 03:38 Piperacillin Sod/ Tazobactam Sod 50 ml @ 100 mls/hr Q6H IV 11/25/16 09:00 12/04/16 09:07 Fentanyl Citrate 250 ml @ 5 mls/hr TITRATE PRN IV 11/25/16 16:15 12/03/16 17:13 (Tylenol 650 Mg/ 20 ml Liq) 650 mg Q6H PRN OG-TUBE 11/29/16 08:30 11/30/16 23:54 (Albuterol Neb) 2.5 mg Q2HR NEB PRN NEB 11/29/16 08:30 (Tears Naturale Opth Soln) 1 drop Q8HR LEFT EYE 11/29/16 14:00 12/04/16 05:33 (Reglan Inj) 5 mg Q8HR IV PUSH 11/29/16 14:00 12/04/16 05:35 Fluconazole/ Sodium Chloride 200 ml @ 100 mls/hr Q24H IV 11/29/16 13:00 12/03/16 12:00 (Cardizem) 30 mg Q6HR PO 11/29/16 18:00 12/02/16 05:24 Potassium Chloride 100 ml @ 50 mls/hr Q2H PRN IV 11/30/16 07:30 12/02/16 04:31 Potassium Chloride 100 ml @ 50 mls/hr Q2H PRN IV 11/30/16 07:30 (K-Lyte Cl Eff) 50 meq UNSCH PRN PO 11/30/16 07:30 Potassium Chloride 100 ml @ 25 mls/hr UNSCH PRN IV 11/30/16 07:30 Potassium Chloride 100 ml @ 50 mls/hr Q2H PRN IV 11/30/16 07:30 Magnesium Sulfate 4 gm/Sodium Chloride 100 ml @ 50 mls/hr UNSCH PRN IV 11/30/16 07:30 (Mag-Ox) 800 mg UNSCH PRN PO 11/30/16 07:30 Magnesium Sulfate 2 gm/Sodium Chloride 100 ml @ 50 mls/hr UNSCH PRN IV 11/30/16 07:30 (K-Phos) 2,000 mg Q4H PRN PO 11/30/16 07:30 Sodium Phosphate 30 mmol/Sodium Chloride 250 ml @ 42 mls/hr UNSCH PRN IV 11/30/16 07:30 (K-Phos) 2,000 mg UNSCH PRN PO/TUBE 11/30/16 07:30 Potassium Phosphate 30 mmol/ Sodium Chloride 260 ml @ 42 mls/hr UNSCH PRN IV 11/30/16 07:30 (Lactulose Liq) 30 ml BID NG 11/30/16 09:00 12/04/16 09:06 (Free Water) 200 ml Q8HR G-TUBE 11/30/16 14:00 12/04/16 05:32 (Protonix Inj) 40 mg BID IV PUSH 12/01/16 09:00 12/04/16 09:06 (Duoneb Neb) 1 ampule Q6HR NEB NEB 12/02/16 16:00 12/04/16 09:10 (Brethine Inj) 1 mg UNSCH PRN SQ 12/02/16 11:00 Sodium Bicarbonate 75 meq/Potassium Chloride 20 meq/ Sodium Chloride 1,085 ml @ 100 mls/hr [id number] IV 12/02/16 17:00 12/04/16 00:16 Diltiazem HCl 125 mg/Sodium Chloride 125 ml @ 5 mls/hr TITRATE PRN IV 12/04/16 09:15 Norepinephrine Bitartrate 4 mg/ Sodium Chloride 250 ml @ 7.5 mls/hr TITRATE PRN IV 12/04/16 09:15 Family History Adopted at 10 days old, no family history known. . Substance Use Tobacco: Quit smoking 10+ years ago, smoked 1 PPD x 60 years. Alcohol: 2 glasses wine daily. Prescription med abuse: None known Illicits: None known . Psychosocial History Patient is originally from [place], [place]. She was adopted when she was 10 days old. to for approximately 57 years. Patient's states they have 6 children together. Four children are "HIS"; one child is "HERS' and two children are "THEIRS." Three of the children live in [place], and the other children in [place]. Daughter, Chyna lives in [place]. The patient lives in [place] in a elder mobile home community with her . Her was working at [employer] until recently, and the patient was working at the [employer] in [place] until approximately 7 years ago. 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 Spiritual/Cultural Factors Adventist neyda. . Living Will: Copy in medical record Health Care Surrogate: Copy in medical record Date completed: 04/26/2016 . Health Care Surrogate(s): Patient's and son are designated as health care surrogate decision makers. . Documented care wishes: A living will was completed on 04/26/2016 and is accessible and the patient's EMR. Patient states if at any time she should suffer from a terminal condition , persistent vegetative state or incurable affliction, and if her attending has determined that there can be no recovery from such condition and the application of life prolonging procedures would serve only to artificially prolong the dying process, the patient directs that such procedures be withheld are withdrawn, and that she be permitted to naturally with only the administration of medication and/or the performance of any medical procedure deemed necessary to provide her with comfort care order or alleviate pain. She states she desires that nutrition and hydration be withheld are withdrawn when application of such procedure would serve only to perform long artificially the process of dying. . Today's verbally stated goals: Patient is unable to participate in medical decision secondary to her critical condition and unresponsiveness. . Family/friends goals: Patient's verbalizes aggressive goals stating he believes his will get through this. Mr. Forde states he knows that she remains very ill, but he states that the surgery "was a complete success". Mr. Forde states he is 89 years old and in recent years he was in the intensive care unit for for an extended period of time. He states the medical team was asking his family to make a decision about tracheostomy and discussing the withdrawal of artificial life support; his family would not make any decisions wanting to give him some time and within a few days he turned things around and now he is just fine. . Ethical and Legal Issues No known ethical or legal issues at this time . Physical Exam Vital Signs Date Time Temp Pulse Resp B/P (MAP) Pulse Ox O2 Delivery O2 Flow Rate FiO2 12/04/16 08:08 94 40 12/04/16 06:00 86 12/04/16 04:00 94 12/04/16 04:00 97.6 95 18 114/64 (81) 97 12/04/16 04:00 40 12/04/16 03:37 94 126/61 12/04/16 03:28 97 40 12/04/16 02:00 86 12/04/16 01:40 97 40 12/04/16 00:00 40 12/04/16 00:00 94 12/04/16 00:00 98.0 88 18 129/64 (85) 97 12/03/16 23:09 97 40 12/03/16 22:00 76 12/03/16 20:41 97 40 12/03/16 20:00 98.3 82 18 126/60 (82) 97 12/03/16 20:00 40 12/03/16 20:00 75 12/03/16 18:00 80 12/03/16 16:00 40 12/03/16 16:00 98.9 85 18 110/55 (73) 98 12/03/16 16:00 85 12/03/16 15:44 98 40 12/03/16 15:28 83 97/51 12/03/16 14:00 84 12/03/16 12:20 92 99/56 12/03/16 12:00 99.1 83 18 98/54 (69) 98 12/03/16 12:00 40 12/03/16 12:00 79 12/03/16 11:43 91 40 . Exam CONSTITUTIONAL/GENERAL: This is an adequately nourished patient, elderly female patient currently sedated with propofol and fentanyl and intubated on mechanical ventilator. TUBES/LINES/DRAINS: Sanchez catheter, NGT, right IJ central line, soft restraints , ETT SKIN: No jaundice, rashes, or lesions. Ecchymoses on upper extremities. Anasarca. HEAD: Atraumatic. Normocephalic. EYES: Left pupil pinpoint; prosthetic right eye is open. No scleral icterus. No injection or drainage. Fundi not examined. ENT: Nose without bleeding or purulent drainage. NECK: Supple, trachea midline. No JVD CARDIOVASCULAR: Irregular. + Murmur RESPIRATORY/CHEST: Intubated on mechanical ventilator; PEEP 5, FiO2 40% GASTROINTESTINAL: Status post exploratory laparotomy with binder in place. GENITOURINARY: Without palpable bladder distension. Sanchez catheter in place. MUSCULOSKELETAL: Extremities without clubbing, cyanosis. + Edema LYMPHATICS: No palpable cervical or supraclavicular adenopathy. NEUROLOGICAL: Sedated PSYCHIATRIC: Unable to assess secondary to patient's clinical condition . Diagnostic Tests Laboratory Laboratory Tests Test 12/01/16 12:36 12/01/16 15:30 12/01/16 17:00 12/01/16 18:23 Urine Eosinophils NONE SEEN /HPF (NONE SEEN) Urine Random Creatinine 80.9 MG/DL Urine Random Sodium 11 MEQ/L Hemoglobin 8.7 GM/DL (11.6-15.3) Hematocrit 26.1 % (35.0-46.0) Blood Urea Nitrogen 34 MG/DL (7-18) Creatinine 1.60 MG/DL (0.50-1.00) Random Glucose 117 MG/DL (74-106) Calcium Level 8.0 MG/DL (8.5-10.1) Sodium Level 140 MEQ/L (136-145) Potassium Level 3.1 MEQ/L (3.5-5.1) Chloride Level 111 MEQ/L (98-107) Carbon Dioxide Level 19.1 MEQ/L (21.0-32.0) Anion Gap 10 MEQ/L (5-15) Estimat Glomerular Filtration Rate 31 ML/MIN (>89) Stool C. difficile Toxin (PCR) NEGATIVE (NEGATIVE) Stl C. difficile Toxin Epiderm 027 PRESUMPTIVE NEGATIVE Lactic Acid Level 1.4 mmol/L (0.4-2.0) Test 12/01/16 22:00 12/02/16 03:30 12/02/16 15:57 12/03/16 06:20 Hemoglobin 8.8 GM/DL (11.6-15.3) 8.6 GM/DL (11.6-15.3) 8.9 GM/DL (11.6-15.3) Hematocrit 26.7 % (35.0-46.0) 26.4 % (35.0-46.0) 26.8 % (35.0-46.0) White Blood Count 35.0 TH/MM3 (4.0-11.0) 31.9 TH/MM3 (4.0-11.0) Red Blood Count 3.11 MIL/MM3 (4.00-5.30) 3.13 MIL/MM3 (4.00-5.30) Mean Corpuscular Volume 84.8 FL (80.0-100.0) 85.6 FL (80.0-100.0) Mean Corpuscular Hemoglobin 27.7 PG (27.0-34.0) 28.4 PG (27.0-34.0) Mean Corpuscular Hemoglobin Concent 32.6 % (32.0-36.0) 33.1 % (32.0-36.0) Red Cell Distribution Width 16.4 % (11.6-17.2) 16.7 % (11.6-17.2) Platelet Count 111 TH/MM3 (150-450) 112 TH/MM3 (150-450) Mean Platelet Volume 11.8 FL (7.0-11.0) 11.9 FL (7.0-11.0) Neutrophils (%) (Auto) 93.8 % (16.0-70.0) 93.6 % (16.0-70.0) Lymphocytes (%) (Auto) 3.1 % (9.0-44.0) 3.0 % (9.0-44.0) Monocytes (%) (Auto) 2.7 % (0.0-8.0) 3.1 % (0.0-8.0) Eosinophils (%) (Auto) 0.2 % (0.0-4.0) 0.1 % (0.0-4.0) Basophils (%) (Auto) 0.2 % (0.0-2.0) 0.2 % (0.0-2.0) Neutrophils # (Auto) 32.8 TH/MM3 (1.8-7.7) 29.8 TH/MM3 (1.8-7.7) Lymphocytes # (Auto) 1.1 TH/MM3 (1.0-4.8) 1.0 TH/MM3 (1.0-4.8) Monocytes # (Auto) 1.0 TH/MM3 (0-0.9) 1.0 TH/MM3 (0-0.9) Eosinophils # (Auto) 0.1 TH/MM3 (0-0.4) 0.0 TH/MM3 (0-0.4) Basophils # (Auto) 0.1 TH/MM3 (0-0.2) 0.1 TH/MM3 (0-0.2) CBC Comment AUTO DIFF AUTO DIFF Differential Total Cells Counted 100 100 Neutrophils % (Manual) 69 % (16-70) 94 % (16-70) Band Neutrophils % 22 % (0-6) 3 % (0-6) Lymphocytes % 4 % (9-44) 2 % (9-44) Monocytes % 1 % (0-8) 1 % (0-8) Eosinophils % 4 % (0-4) Neutrophils # (Manual) 31.9 TH/MM3 (1.8-7.7) 30.9 TH/MM3 (1.8-7.7) Nucleated Red Blood Cells 1 /100 WBC (0-0) 1 /100 WBC (0-0) Differential Comment FINAL DIFF MANUAL FINAL DIFF MANUAL Platelet Estimate LOW (NORMAL) LOW (NORMAL) Platelet Morphology Comment ENLARGED (NORMAL) ENLARGED (NORMAL) Ovalocytes 1+ (NORMAL) Acanthocytes 1+ (NORMAL) OCC (NORMAL) Keratocytes OCC (NORMAL) 1+ (NORMAL) Blood Urea Nitrogen 33 MG/DL (7-18) 27 MG/DL (7-18) Creatinine 1.73 MG/DL (0.50-1.00) 1.45 MG/DL (0.50-1.00) Random Glucose 106 MG/DL (74-106) 77 MG/DL (74-106) Total Protein 5.7 GM/DL (6.4-8.2) 5.4 GM/DL (6.4-8.2) Albumin 2.0 GM/DL (3.4-5.0) 1.6 GM/DL (3.4-5.0) Calcium Level 7.5 MG/DL (8.5-10.1) 7.5 MG/DL (8.5-10.1) Phosphorus Level 4.6 MG/DL (2.5-4.9) 4.1 MG/DL (2.5-4.9) Magnesium Level 2.0 MG/DL (1.5-2.5) 1.8 MG/DL (1.5-2.5) Alkaline Phosphatase 94 U/L (45-117) 116 U/L (45-117) Aspartate Amino Transf (AST/SGOT) 31 U/L (15-37) 35 U/L (15-37) Alanine Aminotransferase (ALT/SGPT) 19 U/L (10-53) 15 U/L (10-53) Total Bilirubin 0.8 MG/DL (0.2-1.0) 1.0 MG/DL (0.2-1.0) Sodium Level 142 MEQ/L (136-145) 144 MEQ/L (136-145) Potassium Level 3.0 MEQ/L (3.5-5.1) 3.1 MEQ/L (3.5-5.1) 3.7 MEQ/L (3.5-5.1) Chloride Level 113 MEQ/L (98-107) 117 MEQ/L (98-107) Carbon Dioxide Level 15.4 MEQ/L (21.0-32.0) 15.3 MEQ/L (21.0-32.0) Anion Gap 14 MEQ/L (5-15) 12 MEQ/L (5-15) Estimat Glomerular Filtration Rate 28 ML/MIN (>89) 34 ML/MIN (>89) Lactic Acid Level 1.4 mmol/L (0.4-2.0) Ammonia 15 MCMOL/L (11-32) Dohle Bodies PRESENT (NONE SEEN) Digoxin Level 1.0 NG/ML (0.8-2.0) Test 12/03/16 13:25 12/04/16 05:25 Urine Color YELLOW (YELLW/STRAW) Urine Turbidity HAZY (CLEAR) Urine pH 6.0 (5.0-8.5) Urine Specific Vance 1.021 (1.002-1.035) Urine Protein 100 mg/dL (NEG-TRACE) Urine Glucose (UA) NEG mg/dL (NEG) Urine Ketones TRACE mg/dL (NEG) Urine Occult Blood MOD (NEG) Urine Nitrite NEG (NEG) Urine Bilirubin NEG (NEG) Urine Urobilinogen LESS THAN 2.0 MG/DL (LESS Urine Leukocyte Esterase NEG (NEG) Urine RBC 3 /hpf (0-3) Urine WBC 6 /hpf (0-5) Urine Squamous Epithelial Cells 1 /hpf (0-5) Urine Amorphous Sediment OCC Urine Granular Casts 7 /lpf (NONE) Microscopic Urinalysis Comment CATH-CULT NOT IND White Blood Count 25.5 TH/MM3 (4.0-11.0) Red Blood Count 3.34 MIL/MM3 (4.00-5.30) Hemoglobin 9.4 GM/DL (11.6-15.3) Hematocrit 28.5 % (35.0-46.0) Mean Corpuscular Volume 85.3 FL (80.0-100.0) Mean Corpuscular Hemoglobin 28.1 PG (27.0-34.0) Mean Corpuscular Hemoglobin Concent 32.9 % (32.0-36.0) Red Cell Distribution Width 16.7 % (11.6-17.2) Platelet Count 122 TH/MM3 (150-450) Mean Platelet Volume 11.2 FL (7.0-11.0) Neutrophils (%) (Auto) 93.1 % (16.0-70.0) Lymphocytes (%) (Auto) 3.7 % (9.0-44.0) Monocytes (%) (Auto) 2.6 % (0.0-8.0) Eosinophils (%) (Auto) 0.2 % (0.0-4.0) Basophils (%) (Auto) 0.4 % (0.0-2.0) Neutrophils # (Auto) 23.7 TH/MM3 (1.8-7.7) Lymphocytes # (Auto) 0.9 TH/MM3 (1.0-4.8) Monocytes # (Auto) 0.7 TH/MM3 (0-0.9) Eosinophils # (Auto) 0.1 TH/MM3 (0-0.4) Basophils # (Auto) 0.1 TH/MM3 (0-0.2) CBC Comment DIFF FINAL Differential Comment Blood Urea Nitrogen 22 MG/DL (7-18) Creatinine 1.21 MG/DL (0.50-1.00) Random Glucose 87 MG/DL (74-106) Calcium Level 7.6 MG/DL (8.5-10.1) Sodium Level 146 MEQ/L (136-145) Potassium Level 3.8 MEQ/L (3.5-5.1) Chloride Level 116 MEQ/L (98-107) Carbon Dioxide Level 17.8 MEQ/L (21.0-32.0) Anion Gap 12 MEQ/L (5-15) Estimat Glomerular Filtration Rate 42 ML/MIN (>89) . Result Diagram: 12/04/16 0525 12/04/16 0525 Microbiology Microbiology Date/Time Source Procedure Growth Status 12/03/16 15:25 Blood Peripheral Aerobic Blood Culture Pending Received 12/03/16 15:25 Blood Peripheral Anaerobic Blood Culture Pending Received 12/03/16 15:20 Blood Peripheral Aerobic Blood Culture Pending Received 12/03/16 15:20 Blood Peripheral Anaerobic Blood Culture Pending Received 12/03/16 15:40 Sputum Endotracheal Gram Stain - Final Resulted 12/03/16 15:40 Sputum Endotracheal Sputum Culture Pending Resulted . Imaging Last 72 hours Impressions Chest X-Ray 12/03/16 0600 Signed Impressions: Service Date/Time: Saturday, December 03, 2016 04:16 - CONCLUSION: 1. Increasing basilar airspace disease since December 01. Small effusions. Romario Kauffman MD . Procedures 11/21/16: ERCP 11/24/16: Right IJ central line placement 11/24/16: Intubation 11/24/16: Colonoscopy/exploratory laparotomy 11/28/16: Transfusion 11/30/16: Extubation and reintubation 12/01/16: Transfusion . Patient/Family Conference Present at Family Conference: Met with patient's , Seun Forde, at patient's bedside. . Family Conference Location: Bedside Issues Discussed: * Palliative care role, purpose, approach * Additional medical, psychosocial, and spiritual history * Patients general health, functional status, and cognitive changes in the months leading up to the current hospitalization * Patient/family understanding of the current medical problems * Patient/family understanding of prognosis * Patients goals of care as best understood from advance directives and/or conversations and/or values * Current medical treatment options and benefits/burdens of those options * Likely scenarios comparing ongoing aggressive care with a transition to comfort measures only * Questions answered to the best of my ability * Palliative care contact information provided . Assessment and Plan Disease Oriented Problem List: (1) Acute metabolic encephalopathy (2) Acute respiratory failure (3) COPD (chronic obstructive pulmonary disease) (4) Systolic heart failure (5) Cecal volvulus (6) GERD (gastroesophageal reflux disease) (7) Transaminitis (8) Atrial fibrillation with rapid ventricular response (9) Leukocytosis (10) JOSUE (acute kidney injury) (11) Sepsis Symptom Scale: (1) Dyspnea (2) Encephalopathy (3) Pain Pertinent Non-Medical Issues Psychosocial: Patient is originally from [place], [place]. She was adopted when she was 10 days old. to for approximately 57 years. Patient's states they have 6 children together. Four children are "HIS"; one child is "HERS' and two children are "THEIRS." Three of the children live in [place] , and the other children in [place]. Daughter, Chyna lives in [place]. The patient lives in [place] in a elder mobile home community with her . Her was working at [employer] until recently, and the patient was working at the [employer] in [place] until approximately 7 years ago. 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 Legal: Patient's and son are designated as health care surrogate decision makers. Ethical issues impacting care: No known ethical issues impacting care at this time. . Important Contacts * Seun Forde, : [phone] * Chyna Alatorre, daughter: [phone] . Prognosis Patient is a critically ill, 86-year-old female status post exploratory laparotomy on 11/24/16 secondary to cecal volvulus with right colectomy and cholecystectomy. Patient's hospital course has been complicated by severe sepsis and multiorgan dysfunction. She has required Levophed and Cardizem drip for rate control. She has acute respiratory failure and is ventilator dependent ; acute toxic metabolic encephalopathy. She tolerated extubation x 1.5 hours on 11/30/[address] of the chest revealed severe emphysema with bilateral upper and lower lobe infiltrates likely secondary to aspiration- patient will likely need a tracheostomy. If the patient survives this hospitalization, she will likely experience ongoing setbacks and complications making her overall prognosis poor. . Code Status: Full Code Plan * FULL CODE * Decision-making: Patient's and son (both name Seun Forde) are designated as the health care surrogate decision makers. * A living will was completed on 04/26/2016 and is accessible and the patient's EMR. Patient states if at any time she should suffer from a terminal condition , persistent vegetative state or incurable affliction, and if her attending has determined that there can be no recovery from such condition and the application of life prolonging procedures would serve only to artificially prolong the dying process, the patient directs that such procedures be withheld are withdrawn, and that she be permitted to naturally with only the administration of medication and/or the performance of any medical procedure deemed necessary to provide her with comfort care order or alleviate pain. She states she desires that nutrition and hydration be withheld are withdrawn when application of such procedure would serve only to perform long artificially the process of dying. * AGGRESSIVE GOALS * Patient's verbalizes aggressive goals stating he believes his will get through this. Mr. Forde states he knows that she remains very ill, but he states that the surgery "was a complete success". Mr. Forde states he is 89 years old and in recent years he was in the intensive care unit for for an extended period of time. He states the medical team was asking his family to make a decision about tracheostomy and discussing the withdrawal of artificial life support; his family would not make any decisions wanting to give him some time and within a few days he turned things around and now he is just fine. He states he and his children plan to proceed with tracheostomy/PEG tube placement if indicated. * Discussed with patient's nurse (Sussy) and Dr. Arredondo * Symptom management-pain: Status post exploratory laparotomy on 11/24/16. Additional potential factors contributing to pain include invasive lines, ETT, edema, infection, inability, bedbound status etc. chart. Patient currently sedated on propofol and fentanyl. Continue to monitor; patient may need PRN medications for pain when weaned from fentanyl. * Symptom management - encephalopathy: Neurology was consulted secondary to acute encephalopathy, possibly related to infection. 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 No recommendations at this time. * Symptom management - dyspnea: CT chest showing severe underlying emphysema; bilateral upper and lower lobe infiltrates likely secondary to aspiration. Tolerated extubation 1.5 hours a 11/30/16. Will likely need tracheostomy; family stating they will proceed with tracheostomy if indicated. * Palliative care will continue to follow this patient to establish trust, assist with symptom management and clarification of medical treatment goals. . Thank you for the opportunity to participate in the care of Ms. Forde. . Attestation To help prompt me to consider important information that might be impacting today's encounter and assessment, information from prior notes written by myself or my colleagues may have been "brought forward" into today's note. My signature on this note, however, is an attestation that I personally performed the exam, history, and/or decision-making noted today, and, unless otherwise indicated, the interactions with patient, family, and staff as well as the review of records all occurred today. I also attest that the listed assessment and stated plan reflect my best clinical judgment today based on the combination of historical information, prior notes, and today's exam/ interactions. When time spent is documented, it refers only to time spent today by the signer, or if indicated, combined time spent today by collaborating physician/nurse practitioner. . Karina Dorman Dec 04, 2016 10:36 am
--- NOTE | 2016-12-04 11:37 | HHI.CCPN ---
Subjective Remarks/Hospital Course 86 y/o woman developed worsening SOB this afternoon associated with marked leukocytosis. Recent biliary instrumentation for obstruction 48 hours ago and probable sepsis. On appropriate antibiotics. Requiring NRBM now for oxygenation to 97%. Visibly labored breathing. CXR with interstitial edema. EF 35% 2014. Move to ICU. 11/24: Patient s/p colonoscopy this morning which showed mod. diverticulosis in sigmoid colon and hemorrhoids. Remains on NRB with good sats. Afebrile. Cr increased 1.51 from 1.08. 11/25 Patient s/p Ex lap, right colectomy and cholecystectomy. She kept intubated postop went into Afib with RVR overnight and placed on Cardizem drip 10mg/hr. 11/26 Patient is sedated with Diprivan, fentanyl and intubated. Afebrile. On Cardizem drip 5mg/hr. renal function worse with Cr: 2.01 from 1.89, UOP: 1L in 24 hrs 11/27 Patient remains sedated and intubated. Off Cardizem drip. Renal function is improving with Cr: 1.67 from 2.01. Afebrile. 11/28 remains intubated sedated. Heart rate controlled. Creat 1.26. Hb 6.5. Status post 2 units PRBC today. WBC count decreased from 40,000-26,000. Creat improving 1.26 11/29: Patient A. fib with RVR currently on diltiazem drip at 15 mg an hour for rate control. Hemodynamically stable. 11/30: Heart rate better controlled today. Diltiazem drip discontinued overnight. Heart rate currently in the 70s. Tolerated PSV trials yesterday. We'll attempt extubation today if tolerates. No bowel movement. Tolerating tube feeds at 30 cc an hour 12/01: Tmax 101.7. Failed extubation trial after 1 hour yesterday. Persistently hypotensive post intubation. Transfuse 1 unit hemoglobin yesterday for melena per RN. Hemoglobin went from 7.5-11.3. CVP is 12. Enoxaparin will be held. CT thorax, abdomen and pelvis performed now. Lactate pending. Serial hemoglobins. GI consult for EGD Subjective 12/03: Patient remains sedated with Diprivan and Fentanyl and intubated. On Levophed 4 mics, Cardizem drip 2.5mg/hr. For EGD today 12/04 Patient is sedated and intubated. s/p EGD yesterday showed gastritis, no active bleeding. Remains on Cardizem 2.5mg/hr and Levophed 3 mics. Afebrile. Objective Vital Signs Date Time Temp Pulse Resp B/P (MAP) Pulse Ox O2 Delivery O2 Flow Rate FiO2 12/04/16 10:00 96 40 12/04/16 06:00 86 12/04/16 04:00 97.6 18 114/64 (81) 11/30/16 14:30 Non-Rebreather 12 Intake and Output 12/04/16 12/04/16 12/04/16 07:59 15:59 23:59 Output Total 25 ml Balance -25 ml Result Diagram: 12/04/16 0525 12/04/16 0525 Other Results Laboratory Tests Test 12/03/16 13:25 12/04/16 05:25 Urine Color YELLOW Urine Turbidity HAZY Urine pH 6.0 Urine Specific [place] 1.021 Urine Protein 100 mg/dL Urine Glucose (UA) NEG mg/dL Urine Ketones TRACE mg/dL Urine Occult Blood MOD Urine Nitrite NEG Urine Bilirubin NEG Urine Urobilinogen LESS THAN 2.0 MG/DL Urine Leukocyte Esterase NEG Urine RBC 3 /hpf Urine WBC 6 /hpf Urine Squamous Epithelial Cells 1 /hpf Urine Amorphous Sediment OCC Urine Granular Casts 7 /lpf Microscopic Urinalysis Comment CATH-CULT NOT IND White Blood Count 25.5 TH/MM3 Red Blood Count 3.34 MIL/MM3 Hemoglobin 9.4 GM/DL Hematocrit 28.5 % Mean Corpuscular Volume 85.3 FL Mean Corpuscular Hemoglobin 28.1 PG Mean Corpuscular Hemoglobin Concent 32.9 % Red Cell Distribution Width 16.7 % Platelet Count 122 TH/MM3 Mean Platelet Volume 11.2 FL Neutrophils (%) (Auto) 93.1 % Lymphocytes (%) (Auto) 3.7 % Monocytes (%) (Auto) 2.6 % Eosinophils (%) (Auto) 0.2 % Basophils (%) (Auto) 0.4 % Neutrophils # (Auto) 23.7 TH/MM3 Lymphocytes # (Auto) 0.9 TH/MM3 Monocytes # (Auto) 0.7 TH/MM3 Eosinophils # (Auto) 0.1 TH/MM3 Basophils # (Auto) 0.1 TH/MM3 CBC Comment DIFF FINAL Differential Comment Blood Urea Nitrogen 22 MG/DL Creatinine 1.21 MG/DL Random Glucose 87 MG/DL Calcium Level 7.6 MG/DL Sodium Level 146 MEQ/L Potassium Level 3.8 MEQ/L Chloride Level 116 MEQ/L Carbon Dioxide Level 17.8 MEQ/L Anion Gap 12 MEQ/L Estimat Glomerular Filtration Rate 42 ML/MIN Imaging Last Impressions Chest X-Ray 12/03/16 0600 Signed Impressions: Service Date/Time: Saturday, December 03, 2016 04:16 - CONCLUSION: 1. Increasing basilar airspace disease since December 01. Small effusions. Romario Kauffman MD Chest CT 12/01/16 0000 Signed Impressions: Service Date/Time: Thursday, December 01, 2016 08:13 - CONCLUSION: 1. Severe emphysema with bilateral airspace consolidation in a patchy distribution involving the upper and lower lobes but most severe in the left lower lobe. There is also a trace left pleural effusion. Imaging findings are nonspecific but infection or aspiration should be considerations. 2. Coronary artery calcification. Giovani Lopez MD Abdomen/Pelvis CT 12/01/16 0000 Signed Impressions: Service Date/Time: Thursday, December 01, 2016 08:13 - CONCLUSION: 1. No acute finding is identified to explain the blood in stool. There are postsurgical findings suggesting prior right hemicolectomy. Colon contains a fluid and air and there is sigmoid diverticulosis. 2. Small volume of free fluid in the abdomen and pelvis. Also, there is mild diffuse subcutaneous edema. Giovani Lopez MD Head CT 11/27/16 0000 Signed Impressions: Service Date/Time: Sunday, November 27, 2016 14:47 - CONCLUSION: 1. Questionable edema or subacute infarct in the left parietal deep white matter. This would be better evaluated with MRI. No intracranial hemorrhage or significant mass effect. Romario Kauffman MD Brain MRI 11/27/16 0000 Signed Impressions: Service Date/Time: Sunday, November 27, 2016 18:10 - CONCLUSION: 1. Moderate periventricular and subcortical white matter small vessel ischemic changes bilaterally. 2. 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 3. No acute infarct, acute hemorrhage, mass effect or extra-axial fluid collection. 4. Fluid level within sphenoid sinuses. 5. Fluid within the mastoid air cells bilaterally. Hasmukh Oakes MD Abdomen Ultrasound 11/23/16 0000 Signed Impressions: Service Date/Time: Wednesday, November 23, 2016 19:33 - CONCLUSION: 1. Somewhat limited study. Proximal superior mesenteric artery appears patent. 2. Mildly elevated flow velocities in the celiac and hepatic arteries of doubtful clinical significance. Giovani Martinez MD GI Procedure 11/21/16 0000 Signed Impressions: Service Date/Time: Monday, November 21, 2016 10:44 - CONCLUSION: ERCP as above. Reymundo Wilburn MD FACR Objective Remarks GENERAL: 86 yo female, critically ill currently orotracheally intubated SKIN: Warm and dry. No rash HEAD: Normocephalic. EYES: No scleral icterus. No injection or drainage. 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 NECK: Supple, trachea midline. No JVD or lymphadenopathy. CARDIOVASCULAR: Tachycardia, IR S1, S2 no S4. Faint 2/6 systolic murmur left lower sternal border/right upper sternal border RESPIRATORY: Breath sounds equal bilaterally. No accessory muscle use. GASTROINTESTINAL: Abdomen soft, tenderness on palpation. MUSCULOSKELETAL: Trace peripheral edema Neuro: Currently on propofol for sedation. Withdraws all 4 extremities. Was following commands yesterday post extubation. Date of Insertion: Nov 24, 2016 Line: Central Venous Catheter Side: Right Location: Internal, Jugular A/P Assessment and Plan Neuro/Psych: History of chronic bilateral basal ganglia CVA Acute toxic metabolic encephalopathy Prosthetic left eye Currently on propofol at 20 mics grams per kilogram per minute and/fentanyl drip at 100 mcg an hour infusion for sedation/analgesia while intubated Goal of RASS -2 Daily sedation vacation. MRI brain 11/27 showed moderate small vessel disease, old bilateral basal ganglia CVA however no acute findings. Evaluated by Dr. Roque - neurology Continue amitriptyline 10 mg at night Pulm: Acute hypoxemic respiratory failure- Extubated and reintubated on 11/30 History of COPD ACV 18/650/5/40 Ventilator bundle Albuterol/ipratropium aerosols every 6 hours with albuterol aerosols every 2 hours as needed for dyspnea Continue with vent support and maintain sat >92% SBT daily as adelina. Tolerated extubation 1.5 hours a 11/30. Likely will need tracheostomy. Awaiting family's decision. CT chest 11/20: Severe underlying emphysema. Status post median sternotomy with postsurgical changes. CT thorax 11/30 revealed severe emphysema. Bilateral upper and lower lobe infiltrates/glass ground likely aspiration. CV: Systolic heart failure - likely chronic ejection fraction 40% Severe sepsis Atrial Fibrillation w/ RVR History of hypertension Severe pulmonary hypertension likely group 3 secondary to COPD PAD history of bilateral CEA Wean off Levophed- Monitor HR and BP keep MAP>65mmHg Cardizem drip if needed for rate control, s/p Digoxin 0.25mg x2 12/02. Dig level 1.0 Echo from 11/26 EF 40%, mild MR. Moderate AR/TR. Severe pulmonary HTN (PAP 70mmHg) ASA 81 mg daily held in light of GI bleeding Resume Atorvastatin 80 mg daily- LFT's now within normal. RENAL/: Acute kidney injury improving Monitor renal function, I/O's, avoid nephrotoxins renal is following- Dr. 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 Gastroesophageal reflux disease Transaminitis Hyperammonia Constipation Glucerna 1.5@ 45 cc an hour on hold. 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 Mild head pancreatitis possible in the proper clinical setting. Patient has recently had ERCP and bile duct stone extraction. Bibasilar pneumonia developing. Tiny pleural effusion on the right US abdomen: Proximal superior mesenteric artery appears patent. Initiate Xifaxan 40 mg by tube every 8 hours and lactulose 30 cc twice a day. Ammonia level 15 on 12/02 On ursodiol 300 mg by mouth was daily resume when clinically indicated On metoclopramide per Dr. Polanco for bowel prokinetic medication ID: Continue with abx per ID (piperacillin/tazobactam/Diflucan) Monitor for signs of infections ( Fever, WBC) WBC is trending down Pertinent cultures BC 11/24: NGTD . Blood cultures 11/29 - pending C. difficile negative 12/01 Heme: Leukocytosis..trending down Normocytic anemia Thrombocytopenia Monitor CBC Status post 2 units PRBCs 11/28. 1 unit PRBCs 12/01 Hemoccult stool 11/30 positive Endo: SSI with accuchecks GI prophylaxis- Pantoprazole 40mg IV twice a day DVT prophylaxis- Enoxaparin 30mg daily held in light of GI bleed Lines: Right IJ placed in OR 11/24 Critical Care: The total critical care time was 30 minutes. Time to perform other separately billable procedures was not included in the critical care time. Marian Rodríguez MD Dec 04, 2016 11:37
--- NOTE | 2016-12-04 12:27 | RADRPT ---
EXAM DATE/TIME: 12/04/2016 11:33 [facility] COMPARISON: No previous studies available for comparison. INDICATIONS : R/o ileus MEDICAL HISTORY : Stroke. Hypertension SURGICAL HISTORY : Hysterectomy. ENCOUNTER: Initial ACUITY: 2 weeks PAIN SCORE: Non-responsive. LOCATION: Bilateral abdomen FINDINGS: There are identified centrally mildly distended gas-filled loops of small bowel. Colonic gas is prese nt. Skin triston and NG tube identified. Aortic and iliac artery calcification. CONCLUSION: Mild bowel distention likely related to an ileus. Rakesh Miranda MD on December 04, 2016 at 12:25 Board Certified Radiologist. This report was verified electronically.
[2016-12-04] MEDS: FLUCONAZOLE 400 MG PREMIX BAG 200 ML IV SCH (12:45)
--- NOTE | 2016-12-04 14:46 | HHI.NPPN ---
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 Patient also underwent repeat ERCP for obstructed bile duct November 21, 2016. Patient noted to have had a serum creatinine level 0.8 15 September 2016. On presentation creatinine level at this institution 1.59 and has now deteriorated to 2.01. Patient in the ICU with development of respiratory insufficiency and worsening leukocytosis. Patient unable to provide any history secondary to her clinical condition. Review of Systems General General Remarks Unable to obtain 2/2 to clinical condition Objective Data Data Vital Signs Date Time Temp Pulse Resp B/P (MAP) Pulse Ox O2 Delivery O2 Flow Rate FiO2 12/04/16 13:48 98 40 12/04/16 12:48 80 12/04/16 12:00 94 40 12/04/16 11:45 96 30 92 12/04/16 11:31 96 12/04/16 11:31 96 32 166/84 (111) 86 12/04/16 11:30 96 38 89 12/04/16 11:15 89 26 93 12/04/16 11:00 87 12/04/16 11:00 87 29 118/54 (75) 92 12/04/16 10:45 99 24 94 12/04/16 10:30 96 26 115/56 (75) 94 12/04/16 10:30 96 12/04/16 10:15 89 27 95 12/04/16 10:00 92 12/04/16 10:00 40 12/04/16 10:00 92 24 118/54 (75) 95 12/04/16 10:00 96 40 12/04/16 09:45 78 18 96 12/04/16 09:30 78 18 110/54 (72) 95 12/04/16 09:30 78 12/04/16 09:15 87 18 96 12/04/16 09:00 91 12/04/16 09:00 91 18 113/57 (75) 97 12/04/16 08:45 78 18 98 12/04/16 08:30 79 12/04/16 08:30 79 18 116/56 (76) 97 12/04/16 08:15 78 18 97 12/04/16 08:08 94 40 12/04/16 08:01 77 18 132/71 (91) 97 12/04/16 08:01 77 12/04/16 08:00 77 18 95 12/04/16 08:00 40 12/04/16 08:00 77 12/04/16 06:00 86 12/04/16 04:00 94 12/04/16 04:00 97.6 95 18 114/64 (81) 97 12/04/16 04:00 40 12/04/16 03:37 94 126/61 12/04/16 03:28 97 40 12/04/16 02:00 86 12/04/16 01:40 97 40 12/04/16 00:00 40 12/04/16 00:00 94 12/04/16 00:00 98.0 88 18 129/64 (85) 97 12/03/16 23:09 97 40 12/03/16 22:00 76 12/03/16 20:41 97 40 12/03/16 20:00 98.3 82 18 126/60 (82) 97 12/03/16 20:00 40 12/03/16 20:00 75 12/03/16 18:00 80 12/03/16 16:00 40 12/03/16 16:00 98.9 85 18 110/55 (73) 98 12/03/16 16:00 85 12/03/16 15:44 98 40 12/03/16 15:28 83 97/51 -: 12/04/16 0525 12/04/16 0525 Microbiology 12/03/16 Aerobic Blood Culture - Preliminary, Resulted NO GROWTH IN 1 DAY 12/03/16 Anaerobic Blood Culture - Preliminary, Resulted NO GROWTH IN 1 DAY 12/03/16 Aerobic Blood Culture - Preliminary, Resulted NO GROWTH IN 1 DAY 12/03/16 Anaerobic Blood Culture - Preliminary, Resulted NO GROWTH IN 1 DAY 12/03/16 Gram Stain - Final, Resulted 12/03/16 Sputum Culture - Preliminary, Resulted S. Aureus Mrsa Physical Exam General Appearance: No Acute Distress Neck Neck Exam: Trachea Midline Pulmonary Resp Exam: Breath Sounds Equal, Diminished Breath Sounds Cardiology CV Exam: Normal Sinus Rhythm, Irregular, Murmur Extremeties Extremities Exam: Moderate Edema (1-2+ pitting BUE and BLE) Neurologic Neuro Exam: Unresponsive Assessment/Plan Problem List: (1) JOSUE (acute kidney injury) ICD Codes: N17.9 - JOSUE (acute kidney injury) Status: Acute Plan: Renal functions had been improving related to previous insult related to abdominal surgery, but she unfortunately has recurrence of acute renal insufficiency secondary to hemodynamic factors (i.e. hypotension and GI bleed.) Renal functions now improving again today. UOP improved, still on Marquis, but dose being decreased Will change to D5 W with added sodium bicarbonate and potassium in view of hypernatremia. Medications should be adjusted for the patient's estimated GFR if clinically indicated. Avoid agents with significant potential for nephrotoxicity possible including NSAIDs for analgesia, iodine contrast agents. Gadolinium is contraindicated if the GFR is below 30. Permanent Comment: Secondary to sepsis. Last Edited By: Radha Ferrari on Nov 26, 2016 11:19 (2) Sepsis ICD Codes: A41.9 - Sepsis, unspecified organism Plan: Management per infectious disease. Permanent Comment: Patient status post right colectomy for volvulus as well as ERCP obstructed bile duct November 21, 2016. Last Edited By: Radha Ferrari on Nov 26, 2016 11:20 (3) Hypernatremia ICD Codes: E87.0 - Hyperosmolality and hypernatremia Status: Resolved Plan: Resolved with D5 and free water (4) Hypertension ICD Codes: I10 - Hypertension Status: Chronic Plan: As per hx. Hypotensive in house requiring inotropic support Problem Qualifiers (1) Hypertension: Qualified Codes: I10 - Essential (primary) hypertension Kesha Ferrari MD Dec 04, 2016 14:46
[2016-12-04] MEDS ORDERED: fentaNYL DRIP 250 ML IV PRN (15:15)
[2016-12-04] MEDS ORDERED: SODIUM BICARBONATE IV SCH ×3 (16:00)
[2016-12-04] MEDS ORDERED: DEXTROSE 5% IV SCH ×3 (16:00)
[2016-12-04] MEDS ORDERED: POTASSIUM CHLORIDE IV SCH ×3 (16:00)
[2016-12-04] MEDS ORDERED: [UNRECOGNIZED DRUG - OTHER] IV SCH ×3 (16:00)
[2016-12-04] MEDS: DEXTROSE 5% IV SCH ×3 (16:24)
[2016-12-04] MEDS: [UNRECOGNIZED DRUG - OTHER] IV SCH ×3 (16:24)
[2016-12-04] MEDS: ATORVASTATIN 80 MG TAB PO SCH (21:40)
[2016-12-05] VITALS (17 sets, daily range): BP systolic 96–133; BP diastolic 50–62; PULSE 66–73; RESP 18; TEMP 96.6–98.5; O2SAT 94–100
[2016-12-05] MEDS: INSULIN NovoLIN REGULAR SUPPLEMENTAL SCALE SQ SCH ×7 (00:15→23:42)
[2016-12-05] MEDS: PROPOFOL 1000 MG/100 ML INJ 100 ML IV PRN ×5 (00:42→19:31)
[2016-12-05] MEDS: DILTIAZEM HCL 30 MG TAB PO SCH ×6 (00:43→23:43)
[2016-12-05] MEDS: [UNRECOGNIZED DRUG - OTHER] IV SCH ×6 (03:29→12:41)
[2016-12-05] MEDS: POTASSIUM CHLORIDE IV SCH ×6 (03:29→12:41)
[2016-12-05] MEDS: DEXTROSE 5% IV SCH ×6 (03:29→12:41)
[2016-12-05] MEDS: SODIUM BICARBONATE IV SCH ×6 (03:29→12:41)
[2016-12-05] MEDS: PIPERACIL-TAZO 2.25 GM PREMIX 50 ML IV SCH ×4 (03:30→19:30)
[2016-12-05] MEDS: RESP: ALBUTEROL 2.5 MG/IPRATROPIUM 0.5 MG NEB (SCH) NEB ×4 (04:04→21:41)
[2016-12-05] MEDS: METOCLOPRAMIDE HCL 10 MG/2 ML VIAL IV PUSH SCH ×3 (05:35→20:51)
[2016-12-05] MEDS: ARTIFICIAL TEARS OPTH SOLN 15 ML BTL LEFT EYE SCH ×3 (05:35→19:35)
[2016-12-05] MEDS: FREE WATER G-TUBE SCH ×3 (05:36→19:38)
[2016-12-05 06:26] LABS: AUTOMATED NEUTROPHIL # 11.7 TH/MM3 (1.8-7.7); BASOPHIL % 0.3 % (0.0-2.0); EOSINOPHIL # 0.1 TH/MM3 (0-0.4); EOSINOPHIL % 0.9 % (0.0-4.0); HEMATOCRIT 24.4 % (35.0-46.0); LYMPH % 5.6 % (9.0-44.0); LYMPHOCYTE # 0.7 TH/MM3 (1.0-4.8); MEAN CELL VOLUME 84.4 FL (80.0-100.0); MEAN CORPUSCULAR HEMOGLOBIN 28.1 PG (27.0-34.0); MEAN CORPUSCULAR HGB CONC 33.2 % (32.0-36.0); NEUT % 90.2 % (16.0-70.0); PLATELET COUNT 83 TH/MM3 (150-450); RED BLOOD COUNT 2.89 MIL/MM3 (4.00-5.30); RED CELL DISTRIBUTION WIDTH 16.4 % (11.6-17.2)
[2016-12-05 06:29] LABS: HEMO FLAGS AUTO DIFF
[2016-12-05] MEDS ORDERED: Vancomycin Consult Pharmacy 1 EA OTHER SCH (06:45)
--- NOTE | 2016-12-05 06:54 | HHI.CCPN ---
Subjective Remarks/Hospital Course 86 y/o woman developed worsening SOB this afternoon associated with marked leukocytosis. Recent biliary instrumentation for obstruction 48 hours ago and probable sepsis. On appropriate antibiotics. Requiring NRBM now for oxygenation to 97%. Visibly labored breathing. CXR with interstitial edema. EF 35% 2014. Move to ICU. 11/24: Patient s/p colonoscopy this morning which showed mod. diverticulosis in sigmoid colon and hemorrhoids. Remains on NRB with good sats. Afebrile. Cr increased 1.51 from 1.08. 11/25 Patient s/p Ex lap, right colectomy and cholecystectomy. She kept intubated postop went into Afib with RVR overnight and placed on Cardizem drip 10mg/hr. 11/26 Patient is sedated with Diprivan, fentanyl and intubated. Afebrile. On Cardizem drip 5mg/hr. renal function worse with Cr: 2.01 from 1.89, UOP: 1L in 24 hrs 11/27 Patient remains sedated and intubated. Off Cardizem drip. Renal function is improving with Cr: 1.67 from 2.01. Afebrile. 11/28 remains intubated sedated. Heart rate controlled. Creat 1.26. Hb 6.5. Status post 2 units PRBC today. WBC count decreased from 40,000-26,000. Creat improving 1.26 11/29: Patient A. fib with RVR currently on diltiazem drip at 15 mg an hour for rate control. Hemodynamically stable. 11/30: Heart rate better controlled today. Diltiazem drip discontinued overnight. Heart rate currently in the 70s. Tolerated PSV trials yesterday. We'll attempt extubation today if tolerates. No bowel movement. Tolerating tube feeds at 30 cc an hour 12/01: Tmax 101.7. Failed extubation trial after 1 hour yesterday. Persistently hypotensive post intubation. Transfuse 1 unit hemoglobin yesterday for melena per RN. Hemoglobin went from 7.5-11.3. CVP is 12. Enoxaparin will be held. CT thorax, abdomen and pelvis performed now. Lactate pending. Serial hemoglobins. GI consult for EGD 12/03: Patient remains sedated with Diprivan and Fentanyl and intubated. On Levophed 4 mics, Cardizem drip 2.5mg/hr. For EGD today 12/04 Patient is sedated and intubated. s/p EGD yesterday showed gastritis, no active bleeding. Remains on Cardizem 2.5mg/hr and Levophed 3 mics. Afebrile. Subjective 12/05: Afebrile. Hemoglobin stable. Off norepinephrine and diltiazem drips. Creatinine stabilizing. Objective Vital Signs Date Time Temp Pulse Resp B/P (MAP) Pulse Ox O2 Delivery O2 Flow Rate FiO2 12/05/16 06:00 73 12/05/16 04:29 97 40 12/05/16 04:00 97.6 18 113/57 (75) Intake and Output 12/05/16 12/05/16 12/06/16 08:00 16:00 00:00 Output Total 500 ml Balance -500 ml Result Diagram: 12/05/16 0615 12/04/16 0525 Other Results Microbiology Date/Time Source Procedure Growth Status 12/03/16 15:25 Blood Peripheral Aerobic Blood Culture - Preliminary NO GROWTH IN 1 DAY Resulted 12/03/16 15:25 Blood Peripheral Anaerobic Blood Culture - Preliminary NO GROWTH IN 1 DAY Resulted 11/30/16 23:00 Stool Stool Stool Occult Blood (MAXINE) - Final HEMOCCULT POSITIVE Complete 12/03/16 15:40 Sputum Endotracheal Gram Stain - Final Resulted 12/03/16 15:40 Sputum Culture - Preliminary S. Aureus Mrsa Resulted Imaging Last Impressions Abdomen X-Ray 12/04/16 0000 Signed Impressions: Service Date/Time: Sunday, December 04, 2016 11:33 - CONCLUSION: Mild bowel distention likely related to an ileus. Rakesh Miranda MD Chest X-Ray 12/03/16 0600 Signed Impressions: Service Date/Time: Saturday, December 03, 2016 04:16 - CONCLUSION: 1. Increasing basilar airspace disease since December 01. Small effusions. Romario Kauffman MD Chest CT 12/01/16 0000 Signed Impressions: Service Date/Time: Thursday, December 01, 2016 08:13 - CONCLUSION: 1. Severe emphysema with bilateral airspace consolidation in a patchy distribution involving the upper and lower lobes but most severe in the left lower lobe. There is also a trace left pleural effusion. Imaging findings are nonspecific but infection or aspiration should be considerations. 2. Coronary artery calcification. Giovani Lopez MD Abdomen/Pelvis CT 12/01/16 0000 Signed Impressions: Service Date/Time: Thursday, December 01, 2016 08:13 - CONCLUSION: 1. No acute finding is identified to explain the blood in stool. There are postsurgical findings suggesting prior right hemicolectomy. Colon contains a fluid and air and there is sigmoid diverticulosis. 2. Small volume of free fluid in the abdomen and pelvis. Also, there is mild diffuse subcutaneous edema. Giovani Lopez MD Head CT 11/27/16 0000 Signed Impressions: Service Date/Time: Sunday, November 27, 2016 14:47 - CONCLUSION: 1. Questionable edema or subacute infarct in the left parietal deep white matter. This would be better evaluated with MRI. No intracranial hemorrhage or significant mass effect. Romario Kauffman MD Brain MRI 11/27/16 0000 Signed Impressions: Service Date/Time: Sunday, November 27, 2016 18:10 - CONCLUSION: 1. Moderate periventricular and subcortical white matter small vessel ischemic changes bilaterally. 2. 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 3. No acute infarct, acute hemorrhage, mass effect or extra-axial fluid collection. 4. Fluid level within sphenoid sinuses. 5. Fluid within the mastoid air cells bilaterally. Hasmukh Oakes MD Abdomen Ultrasound 11/23/16 0000 Signed Impressions: Service Date/Time: Wednesday, November 23, 2016 19:33 - CONCLUSION: 1. Somewhat limited study. Proximal superior mesenteric artery appears patent. 2. Mildly elevated flow velocities in the celiac and hepatic arteries of doubtful clinical significance. Giovani Martinez MD GI Procedure 11/21/16 0000 Signed Impressions: Service Date/Time: Monday, November 21, 2016 10:44 - CONCLUSION: ERCP as above. Reymundo Wilburn MD FACR Objective Remarks GENERAL: 86 yo female, critically ill currently orotracheally intubated SKIN: Warm and dry. No rash HEAD: Normocephalic. EYES: No scleral icterus. No injection or drainage. 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 NECK: Supple, trachea midline. No JVD or lymphadenopathy. CARDIOVASCULAR: RRR. S1, S2 no S4. Faint 2/6 systolic murmur left lower sternal border/right upper sternal border RESPIRATORY: Breath sounds equal bilaterally. No accessory muscle use. GASTROINTESTINAL: Abdomen soft, tenderness on palpation. MUSCULOSKELETAL: Trace peripheral edema Neuro: Currently on propofol for sedation. Withdraws all 4 extremities to noxious stimulation. Positive gag. Positive corneal reflex on left eye. 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 Urinary Catheter: Yes Assessment to: Continue Sanchez insert reason: Prolonged Immobilization Vascular Central Line Catheter: Yes Assessment to: Continue Date of Insertion: Nov 24, 2016 Line: Central Venous Catheter Side: Right Location: Internal, Jugular A/P Assessment and Plan Neuro/Psych: History of chronic bilateral basal ganglia CVA Acute toxic metabolic encephalopathy Prosthetic left eye Currently on propofol at 48 mics grams per kilogram per minute and/fentanyl drip as needed infusion for sedation/analgesia while intubated Goal of RASS -2 Daily sedation vacation. MRI brain 11/27 showed moderate small vessel disease, old bilateral basal ganglia CVA however no acute findings. Evaluated by Dr. Roque - neurology Continue amitriptyline 10 mg at night Acetaminophen 650 mg by tube every 6 hours. Fever Pulm: Acute hypoxemic respiratory failure- Extubated and reintubated on 11/30 History of COPD ACV 18/650/5/40 Ventilator bundle Albuterol/ipratropium aerosols every 6 hours with albuterol aerosols every 2 hours as needed for dyspnea Continue with vent support and maintain sat >92% SBT daily as adelina. Tolerated extubation 1.5 hours a 11/30. Likely will need tracheostomy. CT chest 11/20: Severe underlying emphysema. Status post median sternotomy with postsurgical changes. CT thorax 11/30 revealed severe emphysema. Bilateral upper and lower lobe infiltrates/glass ground likely aspiration. CV: Systolic heart failure - likely chronic ejection fraction 40% Severe sepsis Atrial Fibrillation w/ RVR - normal sinus rhythm History of hypertension Severe pulmonary hypertension likely group 3 secondary to COPD PAD history of bilateral CEA Goal MAP>65mmHg Currently on diltiazem 30 mg by mouth every 6 hours. Currently normal sinus rhythm Echo from 11/26 EF 40%, mild MR. Moderate AR/TR. Severe pulmonary HTN (PAP 70mmHg) ASA 81 mg daily held in light of GI bleeding Continue Atorvastatin 80 mg daily RENAL//FEN: Acute kidney injury improving Hypernatremia Monitor renal function, I/O's, avoid nephrotoxins Nephrology is following- Dr. Ferrari Free water 200ml Q8, monitor sodium level on currently on D5 water with 75 mEq bicarbonate and 20 mEq potassium chloride at 90 cc an hour. 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 Gastroesophageal reflux disease Transaminitis Hyperammonia Constipation Glucerna 1.5@ 45 cc an hour on hold. KUB 12/04 revealed mild ileus. 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 Mild head pancreatitis possible in the proper clinical setting. Patient has recently had ERCP and bile duct stone extraction. Bibasilar pneumonia developing. Tiny pleural effusion on the right US abdomen: Proximal superior mesenteric artery appears patent. Currently on lactulose 30 cc twice a day. Ammonia level 15 on 12/02 On ursodiol 300 mg by mouth twice daily. Resume when clinically indicated On metoclopramide per Dr. Polanco for bowel prokinetic medication ID: MRSA positive sputum Continue with abx per ID (piperacillin/tazobactam/fluconazole/vancomycin) Monitor for signs of infections ( Fever, WBC) WBC is trending down Pertinent cultures BC 11/24: NGTD . Blood cultures 11/29 -no growth C. difficile negative 12/01 12/03 - blood cultures 2 - no growth 12/03 - sputum - MRSA Heme: Leukocytosis..trending down Normocytic anemia Thrombocytopenia Monitor CBC Status post 2 units PRBCs 11/28. 1 unit PRBCs 12/01 Hemoccult stool 11/30 positive Checked HIT. LDH, haptoglobin and peripheral smear pending Endo: SSI with accuchecks with Novulin R every 4 hours GI prophylaxis- Pantoprazole 40mg IV twice a day DVT prophylaxis- Enoxaparin 30mg daily held in light of GI bleed Lines: Right IJ placed in OR 11/24 Critical Care: The total critical care time was 30 minutes. Time to perform other separately billable procedures was not included in the critical care time. Jean Pierre Oh MD Dec 05, 2016 06:54
[2016-12-05 07:38] LABS: BICARBONATE 21.1 MEQ/L (21.0-32.0)
[2016-12-05 07:55] LABS: PLATELET ESTIMATE SMEAR LOW (NORMAL); PLATELET MORPHOLOGY ENLARGED (NORMAL)
[2016-12-05 07:57] LABS: DOHLE BODIES PRESENT (NONE SEEN)
[2016-12-05 07:59] LABS: ACANTHOCYTES 1+ (NORMAL)
[2016-12-05 08:00] LABS: SCAN/DIFF AUTO DIFF CONFIRMED
[2016-12-05] MEDS: SODIUM CHLORIDE 0.9% FLUSH 10 ML FLUSH IV FLUSH SCH ×2 (08:11→19:30)
[2016-12-05] MEDS: LACTULOSE SYRUP 20 GM/30 ML CUP NG SCH ×2 (08:11→19:29)
[2016-12-05] MEDS: PANTOPRAZOLE SODIUM 40 MG VIAL IV PUSH SCH ×2 (08:11→19:29)
[2016-12-05] MEDS: URSODIOL 300 MG CAP PO SCH ×2 (08:11→19:30)
[2016-12-05 08:20] LABS: CALCIUM-PROTEIN CORRECTED 8.3 MG/DL (8.5-10.1)
[2016-12-05 08:48] LABS: MAGNESIUM 1.6 MG/DL (1.5-2.5)
[2016-12-05] MEDS ORDERED: VANCOMYCIN INJ 1,500 MG in SODIUM CHLORID 0.9% 500 ML INJ 500 ML IV SCH (10:00)
[2016-12-05] MEDS: FLUCONAZOLE 400 MG PREMIX BAG 200 ML IV SCH (12:24)
--- NOTE | 2016-12-05 12:24 | HHI.PR ---
Subjective Subjective Notes Continues ventilated. Enteral feeding stopped yesterday due to distention and ileus on KUB. She is stooling. Objective Vitals/I&O Vital Signs Date Time Temp Pulse Resp B/P (MAP) Pulse Ox O2 Delivery O2 Flow Rate FiO2 12/05/16 10:00 72 12/05/16 08:54 100 35 12/05/16 08:00 98.5 18 96/50 (65) Labs Laboratory Tests Test 12/05/16 06:15 12/05/16 06:41 12/05/16 08:05 White Blood Count 13.0 Red Blood Count 2.89 Hemoglobin 8.1 Hematocrit 24.4 Mean Corpuscular Volume 84.4 Mean Corpuscular Hemoglobin 28.1 Mean Corpuscular Hemoglobin Concent 33.2 Red Cell Distribution Width 16.4 Platelet Count 83 Mean Platelet Volume 10.4 Neutrophils (%) (Auto) 90.2 Lymphocytes (%) (Auto) 5.6 Monocytes (%) (Auto) 3.0 Eosinophils (%) (Auto) 0.9 Basophils (%) (Auto) 0.3 Neutrophils # (Auto) 11.7 Lymphocytes # (Auto) 0.7 Monocytes # (Auto) 0.4 Eosinophils # (Auto) 0.1 Basophils # (Auto) 0.0 CBC Comment AUTO DIFF Differential Comment AUTO DIFF CONFIRMED Dohle Bodies PRESENT Platelet Estimate LOW Platelet Morphology Comment ENLARGED Acanthocytes 1+ Keratocytes Blood Urea Nitrogen 15 Creatinine 0.91 Random Glucose 129 Total Protein 5.1 Calcium Level 7.2 Sodium Level 144 Potassium Level 3.0 Chloride Level 114 Carbon Dioxide Level 21.1 Anion Gap 9 Estimat Glomerular Filtration Rate 59 Protein Corrected Calcium 8.3 Blood Smear Pathologist Review Haptoglobin 138 Phosphorus Level 2.0 Magnesium Level 1.6 Lactate Dehydrogenase 239 Date/Time Source Procedure Growth Status 12/03/16 15:25 Blood Peripheral Aerobic Blood Culture - Preliminary NO GROWTH IN 2 DAYS Resulted 12/03/16 15:25 Blood Peripheral Anaerobic Blood Culture - Preliminary NO GROWTH IN 2 DAYS Resulted 11/30/16 23:00 Stool Stool Stool Occult Blood (MAXINE) - Final HEMOCCULT POSITIVE Complete 12/03/16 15:40 Sputum Endotracheal Gram Stain - Final Complete 12/03/16 15:40 Sputum Culture - Final S. Aureus Mrsa Complete Radiology Last Impressions Chest X-Ray 11/24/16 0000 Signed Impressions: Service Date/Time: Thursday, November 24, 2016 11:57 - CONCLUSION: 1. Interval placement of nasogastric catheter with tip beyond the GE junction omitted from the image. 2. Persistent diffuse coarse interstitial prominence likely reflecting interstitial edema/pneumonia superimposed on chronic interstitial changes. 3. Stable mild bibasilar airspace disease, likely atelectasis. Sam Buckner MD Abdomen/Pelvis CT 11/23/16 0000 Signed Impressions: Service Date/Time: Wednesday, November 23, 2016 21:46 - CONCLUSION: 1. 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 2. Mild head pancreatitis possible in the proper clinical setting. Patient has recently had ERCP and bile duct stone extraction. 3. Bibasilar pneumonia developing. Tiny pleural effusion on the right. 4. Chronic findings otherwise. Giovani Martinez MD Abdomen Ultrasound 11/23/16 0000 Signed Impressions: Service Date/Time: Wednesday, November 23, 2016 19:33 - CONCLUSION: 1. Somewhat limited study. Proximal superior mesenteric artery appears patent. 2. Mildly elevated flow velocities in the celiac and hepatic arteries of doubtful clinical significance. Giovani Martinez MD GI Procedure 11/21/16 0000 Signed Impressions: Service Date/Time: Monday, November 21, 2016 10:44 - CONCLUSION: ERCP as above. Reymundo Wilburn MD FACR Chest CT 11/20/16 1407 Signed Impressions: Service Date/Time: Sunday, November 20, 2016 15:13 - CONCLUSION: 1. Severe underlying emphysema. 2. Status post median sternotomy with postsurgical changes. Maikol Paredes MD Narrative Exam Ventilated Trachea palpable midline, no scars Abd: soft, inc c/d/i, NGT in place, mod distention A/P Assessment and Plan 86 yo F POD 11 s/p ex lap right colectomy, cholecystectomy, for cecal volvulus and common duct stones. Would restart enteral feeding as tolerated. She will need tracheostomy. D/w Dr. Oh. Will plan for [address] Matute. Appreciate palliative care input. Family desires to continue to proceed with aggressive care. Collin,Bryant TA Dec 05, 2016 12:24
[2016-12-05] MEDS: POTASSIUM CHLOR 40 MEQ PREMIX 100 ML IV PRN ×2 (12:27→14:58)
--- NOTE | 2016-12-05 14:01 | HHI.HCPN ---
Reason for visit a. To assist with evaluation and management of symptoms including: Dyspnea, encephalopathy, pain b. To assist medical decision maker(s) with: better understanding of current medical conditions; weighing benefits/burdens of medical treatment options; making medical treatment decisions. Subjective/Interval History Patient seen and assessed in room 527. She remains critically ill, sedated and intubated on mechanical ventilation in the intensive care unit. Off norepinephrine and diltiazem drips. Patient failed extubation after 1.5 hours on 11/30/2016 and was reintubated. Plan for tracheostomy in the morning. KUB on 11/24/16 showed mild bowel distention likely secondary to an ileus; tube feedings were held overnight. Patient had multiple bowel movements overnight. Tube feedings restarted this morning (Glucerna 1.5 at 45ml/hour); will be NPO after midnight due to planned tracheostomy.. Currently on propofol for sedation. Patient withdraws to deep tactile stimuli. + gag reflex. + corneal reflex on left eye. 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 Afebrile. Leukocytosis has resolved. Sputum culture on 12/03/16: + Staph aureus. Patient remains on Zosyn, fluconazole and vancomycin. . Family/friend interactions Met with patient's son (Seun) at bedside to discuss patient's clinical condition and to clarify medical treatment goals. Questions answered to the best of my ability. Family desires to continue ongoing aggressive care. . Advance Directives Living Will: Copy in medical record Health Care Surrogate: Copy in medical record Advance Directive Specifics Date completed: 04/26/2016 . Health Care Surrogate(s): Patient's and son are designated as health care surrogate decision makers. . Documented care wishes: A living will was completed on 04/26/2016 and is accessible and the patient's EMR. Patient states if at any time she should suffer from a terminal condition , persistent vegetative state or incurable affliction, and if her attending has determined that there can be no recovery from such condition and the application of life prolonging procedures would serve only to artificially prolong the dying process, the patient directs that such procedures be withheld are withdrawn, and that she be permitted to naturally with only the administration of medication and/or the performance of any medical procedure deemed necessary to provide her with comfort care order or alleviate pain. She states she desires that nutrition and hydration be withheld are withdrawn when application of such procedure would serve only to perform long artificially the process of dying. . Objective Vital Signs Date Time Temp Pulse Resp B/P (MAP) Pulse Ox O2 Delivery O2 Flow Rate FiO2 12/05/16 12:00 40 12/05/16 12:00 67 12/05/16 12:00 98.3 67 18 120/57 (78) 95 12/05/16 10:00 72 12/05/16 08:54 100 35 12/05/16 08:00 98.5 66 18 96/50 (65) 97 12/05/16 08:00 66 12/05/16 08:00 40 12/05/16 06:00 73 12/05/16 04:29 97 40 12/05/16 04:00 97.6 66 18 113/57 (75) 95 12/05/16 04:00 66 12/05/16 04:00 40 12/05/16 02:00 67 12/05/16 00:10 97 40 12/05/16 00:00 97.8 71 18 133/62 (85) 97 12/05/16 00:00 40 12/05/16 00:00 69 12/04/16 22:00 72 12/04/16 20:54 97 40 12/04/16 20:00 40 12/04/16 20:00 86 12/04/16 20:00 97.7 71 18 132/63 (86) 96 12/04/16 18:00 85 12/04/16 17:00 80 12/04/16 17:00 80 18 133/63 (86) 99 12/04/16 16:30 78 12/04/16 16:30 78 18 143/63 (89) 98 12/04/16 16:00 40 12/04/16 16:00 83 12/04/16 16:00 83 18 134/63 (86) 98 12/04/16 15:51 98 40 12/04/16 15:00 79 12/04/16 15:00 79 18 147/63 (91) 98 12/04/16 14:30 83 18 128/60 (82) 98 12/04/16 14:30 83 12/04/16 14:00 75 12/04/16 14:00 75 18 126/60 (82) 98 12/04/16 13:48 98 40 Intake & Output 12/05/16 12/05/16 07:00 19:00 Intake Total 73 ml Output Total 500 ml Balance -500 ml 73 ml IV Total 73 ml Output Urine Total 500 ml # Bowel Movements 2 . Physical Exam CONSTITUTIONAL/GENERAL: This is an adequately nourished patient, elderly female patient currently sedated with propofol and intubated on mechanical ventilator. TUBES/LINES/DRAINS: Sanchez catheter, NGT, right IJ central line, soft restraints , ETT SKIN: No jaundice, rashes, or lesions. Ecchymoses on upper extremities. Bruising and edema noted on upper extremities bilaterally HEAD: Atraumatic. Normocephalic. 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 No scleral icterus. No injection or drainage. Fundi not examined. ENT: Nose without bleeding or purulent drainage. NECK: Supple, trachea midline. No JVD CARDIOVASCULAR: Irregular. + Murmur RESPIRATORY/CHEST: Intubated on mechanical ventilator. No accessory muscles used GASTROINTESTINAL: Status post exploratory laparotomy with binder in place. GENITOURINARY: Without palpable bladder distension. Sanchez catheter in place. MUSCULOSKELETAL: Extremities without clubbing, cyanosis. + Peripheral edema LYMPHATICS: No palpable cervical or supraclavicular adenopathy. NEUROLOGICAL: Sedated on propofol. Patient withdraws to deep tactile stimuli. PSYCHIATRIC: Unable to assess secondary to patient's clinical condition . Diagnostic Tests Laboratory Laboratory Tests Test 12/02/16 15:57 12/03/16 06:20 12/03/16 13:25 12/04/16 05:25 Potassium Level 3.1 MEQ/L (3.5-5.1) 3.7 MEQ/L (3.5-5.1) 3.8 MEQ/L (3.5-5.1) White Blood Count 31.9 TH/MM3 (4.0-11.0) 25.5 TH/MM3 (4.0-11.0) Red Blood Count 3.13 MIL/MM3 (4.00-5.30) 3.34 MIL/MM3 (4.00-5.30) Hemoglobin 8.9 GM/DL (11.6-15.3) 9.4 GM/DL (11.6-15.3) Hematocrit 26.8 % (35.0-46.0) 28.5 % (35.0-46.0) Mean Corpuscular Volume 85.6 FL (80.0-100.0) 85.3 FL (80.0-100.0) Mean Corpuscular Hemoglobin 28.4 PG (27.0-34.0) 28.1 PG (27.0-34.0) Mean Corpuscular Hemoglobin Concent 33.1 % (32.0-36.0) 32.9 % (32.0-36.0) Red Cell Distribution Width 16.7 % (11.6-17.2) 16.7 % (11.6-17.2) Platelet Count 112 TH/MM3 (150-450) 122 TH/MM3 (150-450) Mean Platelet Volume 11.9 FL (7.0-11.0) 11.2 FL (7.0-11.0) Neutrophils (%) (Auto) 93.6 % (16.0-70.0) 93.1 % (16.0-70.0) Lymphocytes (%) (Auto) 3.0 % (9.0-44.0) 3.7 % (9.0-44.0) Monocytes (%) (Auto) 3.1 % (0.0-8.0) 2.6 % (0.0-8.0) Eosinophils (%) (Auto) 0.1 % (0.0-4.0) 0.2 % (0.0-4.0) Basophils (%) (Auto) 0.2 % (0.0-2.0) 0.4 % (0.0-2.0) Neutrophils # (Auto) 29.8 TH/MM3 (1.8-7.7) 23.7 TH/MM3 (1.8-7.7) Lymphocytes # (Auto) 1.0 TH/MM3 (1.0-4.8) 0.9 TH/MM3 (1.0-4.8) Monocytes # (Auto) 1.0 TH/MM3 (0-0.9) 0.7 TH/MM3 (0-0.9) Eosinophils # (Auto) 0.0 TH/MM3 (0-0.4) 0.1 TH/MM3 (0-0.4) Basophils # (Auto) 0.1 TH/MM3 (0-0.2) 0.1 TH/MM3 (0-0.2) CBC Comment AUTO DIFF DIFF FINAL Differential Total Cells Counted 100 Neutrophils % (Manual) 94 % (16-70) Band Neutrophils % 3 % (0-6) Lymphocytes % 2 % (9-44) Monocytes % 1 % (0-8) Neutrophils # (Manual) 30.9 TH/MM3 (1.8-7.7) Nucleated Red Blood Cells 1 /100 WBC (0-0) Differential Comment FINAL DIFF MANUAL Dohle Bodies PRESENT (NONE SEEN) Platelet Estimate LOW (NORMAL) Platelet Morphology Comment ENLARGED (NORMAL) Acanthocytes OCC (NORMAL) Keratocytes 1+ (NORMAL) Blood Urea Nitrogen 27 MG/DL (7-18) 22 MG/DL (7-18) Creatinine 1.45 MG/DL (0.50-1.00) 1.21 MG/DL (0.50-1.00) Random Glucose 77 MG/DL (74-106) 87 MG/DL (74-106) Total Protein 5.4 GM/DL (6.4-8.2) Albumin 1.6 GM/DL (3.4-5.0) Calcium Level 7.5 MG/DL (8.5-10.1) 7.6 MG/DL (8.5-10.1) Phosphorus Level 4.1 MG/DL (2.5-4.9) Magnesium Level 1.8 MG/DL (1.5-2.5) Alkaline Phosphatase 116 U/L (45-117) Aspartate Amino Transf (AST/SGOT) 35 U/L (15-37) Alanine Aminotransferase (ALT/SGPT) 15 U/L (10-53) Total Bilirubin 1.0 MG/DL (0.2-1.0) Sodium Level 144 MEQ/L (136-145) 146 MEQ/L (136-145) Chloride Level 117 MEQ/L (98-107) 116 MEQ/L (98-107) Carbon Dioxide Level 15.3 MEQ/L (21.0-32.0) 17.8 MEQ/L (21.0-32.0) Anion Gap 12 MEQ/L (5-15) 12 MEQ/L (5-15) Estimat Glomerular Filtration Rate 34 ML/MIN (>89) 42 ML/MIN (>89) Digoxin Level 1.0 NG/ML (0.8-2.0) Urine Color YELLOW (YELLW/STRAW) Urine Turbidity HAZY (CLEAR) Urine pH 6.0 (5.0-8.5) Urine Specific [place] 1.021 (1.002-1.035) Urine Protein 100 mg/dL (NEG-TRACE) Urine Glucose (UA) NEG mg/dL (NEG) Urine Ketones TRACE mg/dL (NEG) Urine Occult Blood MOD (NEG) Urine Nitrite NEG (NEG) Urine Bilirubin NEG (NEG) Urine Urobilinogen LESS THAN 2.0 MG/DL (LESS Urine Leukocyte Esterase NEG (NEG) Urine RBC 3 /hpf (0-3) Urine WBC 6 /hpf (0-5) Urine Squamous Epithelial Cells 1 /hpf (0-5) Urine Amorphous Sediment OCC Urine Granular Casts 7 /lpf (NONE) Microscopic Urinalysis Comment CATH-CULT NOT IND Test 12/05/16 06:15 12/05/16 06:41 12/05/16 08:05 White Blood Count 13.0 TH/MM3 (4.0-11.0) Red Blood Count 2.89 MIL/MM3 (4.00-5.30) Hemoglobin 8.1 GM/DL (11.6-15.3) Hematocrit 24.4 % (35.0-46.0) Mean Corpuscular Volume 84.4 FL (80.0-100.0) Mean Corpuscular Hemoglobin 28.1 PG (27.0-34.0) Mean Corpuscular Hemoglobin Concent 33.2 % (32.0-36.0) Red Cell Distribution Width 16.4 % (11.6-17.2) Platelet Count 83 TH/MM3 (150-450) Mean Platelet Volume 10.4 FL (7.0-11.0) Neutrophils (%) (Auto) 90.2 % (16.0-70.0) Lymphocytes (%) (Auto) 5.6 % (9.0-44.0) Monocytes (%) (Auto) 3.0 % (0.0-8.0) Eosinophils (%) (Auto) 0.9 % (0.0-4.0) Basophils (%) (Auto) 0.3 % (0.0-2.0) Neutrophils # (Auto) 11.7 TH/MM3 (1.8-7.7) Lymphocytes # (Auto) 0.7 TH/MM3 (1.0-4.8) Monocytes # (Auto) 0.4 TH/MM3 (0-0.9) Eosinophils # (Auto) 0.1 TH/MM3 (0-0.4) Basophils # (Auto) 0.0 TH/MM3 (0-0.2) CBC Comment AUTO DIFF Differential Comment AUTO DIFF CONFIRMED Dohle Bodies PRESENT (NONE SEEN) Platelet Estimate LOW (NORMAL) Platelet Morphology Comment ENLARGED (NORMAL) Acanthocytes 1+ (NORMAL) Keratocytes (NORMAL) Blood Urea Nitrogen 15 MG/DL (7-18) Creatinine 0.91 MG/DL (0.50-1.00) Random Glucose 129 MG/DL (74-106) Total Protein 5.1 GM/DL (6.4-8.2) Calcium Level 7.2 MG/DL (8.5-10.1) Sodium Level 144 MEQ/L (136-145) Potassium Level 3.0 MEQ/L (3.5-5.1) Chloride Level 114 MEQ/L (98-107) Carbon Dioxide Level 21.1 MEQ/L (21.0-32.0) Anion Gap 9 MEQ/L (5-15) Estimat Glomerular Filtration Rate 59 ML/MIN (>89) Protein Corrected Calcium 8.3 MG/DL (8.5-10.1) Blood Smear Pathologist Review Haptoglobin 138 MG/DL (30-200) Phosphorus Level 2.0 MG/DL (2.5-4.9) Magnesium Level 1.6 MG/DL (1.5-2.5) Lactate Dehydrogenase 239 U/L (84-246) . Result Diagram: 12/05/1615 12/05/1615 Microbiology Microbiology Date/Time Source Procedure Growth Status 12/03/16 15:25 Blood Peripheral Aerobic Blood Culture - Preliminary NO GROWTH IN 2 DAYS Resulted 12/03/16 15:25 Blood Peripheral Anaerobic Blood Culture - Preliminary NO GROWTH IN 2 DAYS Resulted 12/03/16 15:20 Blood Peripheral Aerobic Blood Culture - Preliminary NO GROWTH IN 2 DAYS Resulted 12/03/16 15:20 Blood Peripheral Anaerobic Blood Culture - Preliminary NO GROWTH IN 2 DAYS Resulted 12/03/16 15:40 Sputum Endotracheal Gram Stain - Final Complete 12/03/16 15:40 Sputum Culture - Final S. Aureus Mrsa Complete . Imaging Last 72 hours Impressions Abdomen X-Ray 12/04/16 0000 Signed Impressions: Service Date/Time: Sunday, December 04, 2016 11:33 - CONCLUSION: Mild bowel distention likely related to an ileus. Rakesh Miranda MD Chest X-Ray 12/03/16 0600 Signed Impressions: Service Date/Time: Saturday, December 03, 2016 04:16 - CONCLUSION: 1. Increasing basilar airspace disease since December 01. Small effusions. Romario Kauffman MD . Procedures 11/21/16: ERCP 11/24/16: Right IJ central line placement 11/24/16: Intubation 11/24/16: Colonoscopy/exploratory laparotomy 11/28/16: Transfusion 11/30/16: Extubation and reintubation 12/01/16: Transfusion . Assessment and Plan Disease Oriented Problem List: (1) Acute metabolic encephalopathy (2) Acute respiratory failure (3) COPD (chronic obstructive pulmonary disease) (4) Systolic heart failure (5) Cecal volvulus (6) GERD (gastroesophageal reflux disease) (7) Transaminitis (8) Atrial fibrillation with rapid ventricular response (9) Leukocytosis (10) JOSUE (acute kidney injury) (11) Sepsis Symptom Scale: (1) Dyspnea (2) Encephalopathy (3) Pain Pertinent Non-Medical Issues Psychosocial: Patient is originally from [place], [place]. She was adopted when she was 10 days old. to for approximately 57 years. Patient's states they have 6 children together. Four children are "HIS"; one child is "HERS' and two children are "THEIRS." Three of the children live in [place] , and the other children in [place]. Daughter, Chyna lives in [place]. The patient lives in [place] in a elder mobile home community with her . Her was working at [employer] until recently, and the patient was working at the [employer] in [place] until approximately 7 years ago. 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 Spiritual: Congregational neyda; declines alley cleaner visits. Legal: Patient's and son are designated as health care surrogate decision makers. Ethical issues impacting care: No known ethical issues impacting care at this time. . Important Contacts * Seun Forde, : [phone] * Chyna Alatorre, daughter: [phone] . Prognosis Patient is a critically ill, 86-year-old female status post exploratory laparotomy on 11/24/16 secondary to cecal volvulus with right colectomy and cholecystectomy. Patient's hospital course has been complicated by severe sepsis and multiorgan dysfunction. She has required Levophed and Cardizem drip for rate control. She has acute respiratory failure and is ventilator dependent ; acute toxic metabolic encephalopathy. She tolerated extubation x 1.5 hours on 11/30/[address] of the chest revealed severe emphysema with bilateral upper and lower lobe infiltrates likely secondary to aspiration- patient will likely need a tracheostomy. If the patient survives this hospitalization, she will likely experience ongoing setbacks and complications making her overall prognosis poor. . Code Status: Full Code Plan * FULL CODE * Decision-making: Patient's and son (both name Seun Forde) are designated as the health care surrogate decision makers. * A living will was completed on 04/26/2016 and is accessible and the patient's EMR. Patient states if at any time she should suffer from a terminal condition , persistent vegetative state or incurable affliction, and if her attending has determined that there can be no recovery from such condition and the application of life prolonging procedures would serve only to artificially prolong the dying process, the patient directs that such procedures be withheld are withdrawn, and that she be permitted to naturally with only the administration of medication and/or the performance of any medical procedure deemed necessary to provide her with comfort care order or alleviate pain. She states she desires that nutrition and hydration be withheld are withdrawn when application of such procedure would serve only to perform long artificially the process of dying. * AGGRESSIVE GOALS * Met with patient's son (Seun) at bedside to discuss patient's clinical condition and to clarify medical treatment goals. Questions answered to the best of my ability. Family desires to continue ongoing aggressive care. * Discussed with patient's nurse and Dr. Oh * Symptom management-pain: Status post exploratory laparotomy on 11/24/16. Additional potential factors contributing to pain include invasive lines, ETT, edema, infection, inability, bedbound status etc. chart. Patient currently sedated on propofol. Continue to monitor * Symptom management - encephalopathy: Neurology was consulted secondary to acute encephalopathy, possibly related to infection. 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 No recommendations at this time. * Symptom management - dyspnea: CT chest showing severe underlying emphysema; bilateral upper and lower lobe infiltrates likely secondary to aspiration. Tolerated extubation 1.5 hours a 11/30/16. Plan for tracheostomy in a.m. * Palliative care will continue to follow this patient to establish trust, assist with symptom management and clarification of medical treatment goals. . Attestation To help prompt me to consider important information that might be impacting today's encounter and assessment, information from prior notes written by myself or my colleagues may have been "brought forward" into today's note. My signature on this note, however, is an attestation that I personally performed the exam, history, and/or decision-making noted today, and, unless otherwise indicated, the interactions with patient, family, and staff as well as the review of records all occurred today. I also attest that the listed assessment and stated plan reflect my best clinical judgment today based on the combination of historical information, prior notes, and today's exam/ interactions. When time spent is documented, it refers only to time spent today by the signer, or if indicated, combined time spent today by collaborating physician/nurse practitioner. . Karina Dorman Dec 05, 2016 2:01 pm
--- NOTE | 2016-12-05 14:42 | HHI.PR ---
Addendum to Inpatient Note Additional Information seen around 1430 full note to follow dw RN + diarrhea not tolerating tube feeds (high residuals), just restarted off sedation not interactive not FC afenbrile + liquid stool copious secretions On exam: sedated rhonchi distended tight abd; incont of liquid brown stool 2-3+ pitting edema cont zosyn, fluconazol dc vancomycin start zyvox Sharon Samayoa MD Dec 05, 2016 14:42
[2016-12-05] MEDS: LINEZOLID 600 MG PREMIX 300 ML IV SCH (14:56)
--- NOTE | 2016-12-05 18:18 | HHI.NPPN ---
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 Patient also underwent repeat ERCP for obstructed bile duct November 21, 2016. Patient noted to have had a serum creatinine level 0.8 15 September 2016. On presentation creatinine level at this institution 1.59 and has now deteriorated to 2.01. Patient in the ICU with development of respiratory insufficiency and worsening leukocytosis. Patient unable to provide any history secondary to her clinical condition. Interval History Pt remained intubated. Trach planned tomorrow. (Kait Loyola) Review of Systems General General Remarks Unable to obtain 2/2 to clinical condition (Kait Loyola) Objective Data Data 12/05/16 12/06/16 19:00 07:00 Intake Total 1013 ml Balance 1013 ml IV Total 1013 ml Vital Signs Date Time Temp Pulse Resp B/P (MAP) Pulse Ox O2 Delivery O2 Flow Rate FiO2 12/05/16 15:52 97 35 12/05/16 14:00 66 12/05/16 12:00 40 12/05/16 12:00 67 12/05/16 12:00 98.3 67 18 120/57 (78) 95 12/05/16 10:00 72 12/05/16 08:54 100 35 12/05/16 08:00 98.5 66 18 96/50 (65) 97 12/05/16 08:00 66 12/05/16 08:00 40 12/05/16 06:00 73 12/05/16 04:29 97 40 12/05/16 04:00 97.6 66 18 113/57 (75) 95 12/05/16 04:00 66 12/05/16 04:00 40 12/05/16 02:00 67 12/05/16 00:10 97 40 12/05/16 00:00 97.8 71 18 133/62 (85) 97 12/05/16 00:00 40 12/05/16 00:00 69 12/04/16 22:00 72 12/04/16 20:54 97 40 12/04/16 20:00 40 12/04/16 20:00 86 12/04/16 20:00 97.7 71 18 132/63 (86 96 (Kait Loyola) -: 12/05/16 0615 12/05/16 0615 Medication Review Current Medications Medications (Trade) Dose Ordered Sig/Jazzmine Route Start Time Stop Time Status Last Admin (NS Flush) 2 ml BID IV FLUSH 11/20/16 21:00 12/05/16 08:11 (Zofran Inj) 4 mg Q6H PRN IVP 11/20/16 16:15 (Narcan Inj) 0.4 mg UNSCH PRN IV 11/20/16 16:15 (Milk Of Magnesia Liq) 30 ml Q12H PRN PO 11/20/16 16:15 (Lipitor) 80 mg HS PO 11/20/16 21:00 Future hold 12/04/16 21:40 (Actigall) 300 mg Q12HR PO 11/22/16 21:00 12/05/16 08:11 (D50w (Vial) Inj) 50 ml UNSCH PRN IV 11/24/16 12:15 (Glucagon Inj) 1 mg UNSCH PRN OTHER 11/24/16 12:15 (NovoLIN R SUPPLEMENTAL SCALE) 1 Q4H SQ 11/24/16 12:15 11/26/16 04:12 Propofol 100 ml @ 1.89 mls/hr TITRATE PRN IV 11/25/16 07:30 12/05/16 14:59 Piperacillin Sod/ Tazobactam Sod 50 ml @ 100 mls/hr Q6H IV 11/25/16 09:00 12/05/16 14:56 (Tylenol 650 Mg/ 20 ml Liq) 650 mg Q6H PRN OG-TUBE 11/29/16 08:30 11/30/16 23:54 (Albuterol Neb) 2.5 mg Q2HR NEB PRN NEB 11/29/16 08:30 (Tears Naturale Opth Soln) 1 drop Q8HR LEFT EYE 11/29/16 14:00 12/05/16 12:26 (Reglan Inj) 5 mg Q8HR IV PUSH 11/29/16 14:00 12/05/16 12:25 Fluconazole/ Sodium Chloride 200 ml @ 100 mls/hr Q24H IV 11/29/16 13:00 12/05/16 12:24 (Cardizem) 30 mg Q6HR PO 11/29/16 18:00 12/05/16 18:04 Potassium Chloride 100 ml @ 50 mls/hr Q2H PRN IV 11/30/16 07:30 12/05/16 14:58 Potassium Chloride 100 ml @ 50 mls/hr Q2H PRN IV 11/30/16 07:30 (K-Lyte Cl Eff) 50 meq UNSCH PRN PO 11/30/16 07:30 Potassium Chloride 100 ml @ 25 mls/hr UNSCH PRN IV 11/30/16 07:30 Potassium Chloride 100 ml @ 50 mls/hr Q2H PRN IV 11/30/16 07:30 Magnesium Sulfate 4 gm/Sodium Chloride 100 ml @ 50 mls/hr UNSCH PRN IV 11/30/16 07:30 (Mag-Ox) 800 mg UNSCH PRN PO 11/30/16 07:30 Magnesium Sulfate 2 gm/Sodium Chloride 100 ml @ 50 mls/hr UNSCH PRN IV 11/30/16 07:30 (K-Phos) 2,000 mg Q4H PRN PO 11/30/16 07:30 Sodium Phosphate 30 mmol/Sodium Chloride 250 ml @ 42 mls/hr UNSCH PRN IV 11/30/16 07:30 (K-Phos) 2,000 mg UNSCH PRN PO/TUBE 11/30/16 07:30 Potassium Phosphate 30 mmol/ Sodium Chloride 260 ml @ 42 mls/hr UNSCH PRN IV 11/30/16 07:30 (Lactulose Liq) 30 ml BID NG 11/30/16 09:00 12/05/16 08:11 (Free Water) 200 ml Q8HR G-TUBE 11/30/16 14:00 12/05/16 12:25 (Protonix Inj) 40 mg BID IV PUSH 12/01/16 09:00 12/05/16 08:11 (Duoneb Neb) 1 ampule Q6HR NEB NEB 12/02/16 16:00 12/05/16 15:51 (Brethine Inj) 1 mg UNSCH PRN SQ 12/02/16 11:00 Diltiazem HCl 125 mg/Sodium Chloride 125 ml @ 5 mls/hr TITRATE PRN IV 12/04/16 09:15 Norepinephrine Bitartrate 4 mg/ Sodium Chloride 250 ml @ 7.5 mls/hr TITRATE PRN IV 12/04/16 09:15 Fentanyl Citrate 250 ml @ 5 mls/hr TITRATE PRN IV 12/04/16 15:15 Sodium Bicarbonate 75 meq/Potassium Chloride 20 meq/ Dextrose 1,085 ml @ 90 mls/hr Q12H4M IV 12/04/16 16:00 12/05/16 12:41 Linezolid 300 ml @ 300 mls/hr Q12H IV 12/05/16 15:00 12/05/16 14:56 (Kait Loyola) Physical Exam General Appearance: No Acute Distress (Kait Loyola) Eyes Eye Remarks Prosthetic R eye (Kait Loyola) Neck Neck Exam: Trachea Midline (Kait Loyola) Pulmonary Resp Exam: Breath Sounds Equal, Diminished Breath Sounds (Kait Loyola) Cardiology CV Exam: Normal Sinus Rhythm, Irregular, Murmur CV Remarks LUSB (Kait Loyola) Extremeties Extremities Exam: Moderate Edema (2+ pitting BUE and BLE) (Kait Loyola) Neurologic Neuro Exam: Unresponsive (Kait Loyola) Assessment/Plan Problem List: (1) JOSUE (acute kidney injury) ICD Codes: N17.9 - JOSUE (acute kidney injury) Status: Acute Plan: Renal functions had been improving related to previous insult related to abdominal surgery, but she unfortunately has recurrence of acute renal insufficiency secondary to hemodynamic factors (i.e. hypotension and GI bleed.) Renal functions now improving again UOP improved Hypernatremia resolved. Acidosis improved. To continue on IVF of D5 bicarb with KCl. If acidemia improves further tomorrow, will D/C bicarb given her continued hypokalemia. On KCl repletion. Noted palliative consult. Family continues to want aggressive care including trach tomorrow. Discussed with daughter present in room. Medications should be adjusted for the patient's estimated GFR if clinically indicated. Avoid agents with significant potential for nephrotoxicity possible including NSAIDs for analgesia, iodine contrast agents. Gadolinium is contraindicated if the GFR is below 30. Permanent Comment: Secondary to sepsis. Last Edited By: Radha Ferrari on Nov 26, 2016 11:19 (2) Sepsis ICD Codes: A41.9 - Sepsis, unspecified organism Plan: Management per infectious disease. Permanent Comment: Patient status post right colectomy for volvulus as well as ERCP obstructed bile duct November 21, 2016. Last Edited By: Radha Ferrari on Nov 26, 2016 11:20 (3) Hypernatremia ICD Codes: E87.0 - Hyperosmolality and hypernatremia Status: Resolved Plan: Resolved with D5 and free water (4) Hypertension ICD Codes: I10 - Hypertension Status: Chronic Plan: As per hx. Hypotensive in house requiring inotropic support (Kait Loyola) Plan The exam, history, and the medical decision-making described in the above note were completed with the assistance of the PA-C. I reviewed and agree with the findings presented. (Kesha Ferrari MD) Problem Qualifiers (1) Hypertension: Qualified Codes: I10 - Essential (primary) hypertension Kait Loyola Dec 05, 2016 18:18 Kesha Ferrari MD Dec 06, 2016 17:17
[2016-12-05] MEDS: ATORVASTATIN 80 MG TAB PO SCH (19:30)
--- NOTE | 2016-12-05 22:24 | HHI.IDPN ---
Subjective Subjective Remarks pt was seen today around 1430 delayed entry dw RN cont to have liquid diarrhea not tolerating tube feeds (high residuals), just restarted on trickle TF off sedation not interactive not FC afebrile + copious secretions Grew MRSA in the sputum from 12/03 Antibiotics zosyn zyvox Lines Line sites with no e.o infection Past Medical History reviewed Allergies: Coded Allergies: No Known Allergies (Unverified , 11/24/16) Objective . Vital Signs Date Time Temp Pulse Resp B/P (MAP) Pulse Ox O2 Delivery O2 Flow Rate FiO2 12/05/16 21:10 94 35 12/05/16 20:00 66 12/05/16 20:00 40 12/05/16 20:00 96.6 67 18 109/53 (71) 94 12/05/16 18:00 69 12/05/16 16:00 97.9 69 18 107/52 (70) 97 12/05/16 16:00 40 12/05/16 16:00 69 12/05/16 15:52 97 35 12/05/16 14:00 66 12/05/16 12:00 40 12/05/16 12:00 67 12/05/16 12:00 98.3 67 18 120/57 (78) 95 12/05/16 10:00 72 12/05/16 08:54 100 35 12/05/16 08:00 98.5 66 18 96/50 (65) 97 12/05/16 08:00 66 12/05/16 08:00 40 12/05/16 06:00 73 12/05/16 04:29 97 40 12/05/16 04:00 97.6 66 18 113/57 (75) 95 12/05/16 04:00 66 12/05/16 04:00 40 12/05/16 02:00 67 12/05/16 00:10 97 40 12/05/16 00:00 97.8 71 18 133/62 (85) 97 12/05/16 00:00 40 12/05/16 00:00 69 12/05/16 12/05/16 12/06/16 15:00 23:00 07:00 Intake Total 963 ml 700 ml Output Total 400 ml Balance 963 ml 300 ml IV Total 963 ml 500 ml Tube Irrigant 200 ml Output Urine Total 400 ml # Bowel Movements 4 . Laboratory Tests Test 12/04/16 05:25 12/05/16 06:15 12/05/16 06:41 12/05/16 08:05 White Blood Count 25.5 TH/MM3 13.0 TH/MM3 Red Blood Count 3.34 MIL/MM3 2.89 MIL/MM3 Hemoglobin 9.4 GM/DL 8.1 GM/DL Hematocrit 28.5 % 24.4 % Mean Corpuscular Volume 85.3 FL 84.4 FL Mean Corpuscular Hemoglobin 28.1 PG 28.1 PG Mean Corpuscular Hemoglobin Concent 32.9 % 33.2 % Red Cell Distribution Width 16.7 % 16.4 % Platelet Count 122 TH/MM3 83 TH/MM3 Mean Platelet Volume 11.2 FL 10.4 FL Neutrophils (%) (Auto) 93.1 % 90.2 % Lymphocytes (%) (Auto) 3.7 % 5.6 % Monocytes (%) (Auto) 2.6 % 3.0 % Eosinophils (%) (Auto) 0.2 % 0.9 % Basophils (%) (Auto) 0.4 % 0.3 % Neutrophils # (Auto) 23.7 TH/MM3 11.7 TH/MM3 Lymphocytes # (Auto) 0.9 TH/MM3 0.7 TH/MM3 Monocytes # (Auto) 0.7 TH/MM3 0.4 TH/MM3 Eosinophils # (Auto) 0.1 TH/MM3 0.1 TH/MM3 Basophils # (Auto) 0.1 TH/MM3 0.0 TH/MM3 CBC Comment DIFF FINAL AUTO DIFF Differential Comment AUTO DIFF CONFIRMED Dohle Bodies PRESENT Platelet Estimate LOW Platelet Morphology Comment ENLARGED Acanthocytes 1+ Keratocytes Blood Smear Pathologist Review Haptoglobin 138 MG/DL Laboratory Tests Test 12/04/16 05:25 12/05/16 06:15 12/05/16 08:05 Blood Urea Nitrogen 22 MG/DL 15 MG/DL Creatinine 1.21 MG/DL 0.91 MG/DL Random Glucose 87 MG/DL 129 MG/DL Calcium Level 7.6 MG/DL 7.2 MG/DL Sodium Level 146 MEQ/L 144 MEQ/L Potassium Level 3.8 MEQ/L 3.0 MEQ/L Chloride Level 116 MEQ/L 114 MEQ/L Carbon Dioxide Level 17.8 MEQ/L 21.1 MEQ/L Anion Gap 12 MEQ/L 9 MEQ/L Estimat Glomerular Filtration Rate 42 ML/MIN 59 ML/MIN Total Protein 5.1 GM/DL Protein Corrected Calcium 8.3 MG/DL Phosphorus Level 2.0 MG/DL Magnesium Level 1.6 MG/DL Lactate Dehydrogenase 239 U/L Microbiology Date/Time Source Procedure Growth Status 12/03/16 15:25 Blood Peripheral Aerobic Blood Culture - Preliminary NO GROWTH IN 2 DAYS Resulted 12/03/16 15:25 Blood Peripheral Anaerobic Blood Culture - Preliminary NO GROWTH IN 2 DAYS Resulted 12/03/16 15:20 Blood Peripheral Aerobic Blood Culture - Preliminary NO GROWTH IN 2 DAYS Resulted 12/03/16 15:20 Blood Peripheral Anaerobic Blood Culture - Preliminary NO GROWTH IN 2 DAYS Resulted 12/03/16 15:40 Sputum Endotracheal Gram Stain - Final Complete 12/03/16 15:40 Sputum Culture - Final S. Aureus Mrsa Complete Imaging Last Impressions Abdomen X-Ray 12/04/16 0000 Signed Impressions: Service Date/Time: Sunday, December 04, 2016 11:33 - CONCLUSION: Mild bowel distention likely related to an ileus. Rakesh Miranda MD Chest X-Ray 12/03/16 0600 Signed Impressions: Service Date/Time: Saturday, December 03, 2016 04:16 - CONCLUSION: 1. Increasing basilar airspace disease since December 01. Small effusions. Romario Kauffman MD Chest CT 12/01/16 0000 Signed Impressions: Service Date/Time: Thursday, December 01, 2016 08:13 - CONCLUSION: 1. Severe emphysema with bilateral airspace consolidation in a patchy distribution involving the upper and lower lobes but most severe in the left lower lobe. There is also a trace left pleural effusion. Imaging findings are nonspecific but infection or aspiration should be considerations. 2. Coronary artery calcification. Giovani Lopez MD Abdomen/Pelvis CT 12/01/16 0000 Signed Impressions: Service Date/Time: Thursday, December 01, 2016 08:13 - CONCLUSION: 1. No acute finding is identified to explain the blood in stool. There are postsurgical findings suggesting prior right hemicolectomy. Colon contains a fluid and air and there is sigmoid diverticulosis. 2. Small volume of free fluid in the abdomen and pelvis. Also, there is mild diffuse subcutaneous edema. Giovani Lopez MD Head CT 11/27/16 0000 Signed Impressions: Service Date/Time: Sunday, November 27, 2016 14:47 - CONCLUSION: 1. Questionable edema or subacute infarct in the left parietal deep white matter. This would be better evaluated with MRI. No intracranial hemorrhage or significant mass effect. Romario Kauffman MD Brain MRI 11/27/16 0000 Signed Impressions: Service Date/Time: Sunday, November 27, 2016 18:10 - CONCLUSION: 1. Moderate periventricular and subcortical white matter small vessel ischemic changes bilaterally. 2. 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 3. No acute infarct, acute hemorrhage, mass effect or extra-axial fluid collection. 4. Fluid level within sphenoid sinuses. 5. Fluid within the mastoid air cells bilaterally. Hasmukh Oakes MD Abdomen Ultrasound 11/23/16 0000 Signed Impressions: Service Date/Time: Wednesday, November 23, 2016 19:33 - CONCLUSION: 1. Somewhat limited study. Proximal superior mesenteric artery appears patent. 2. Mildly elevated flow velocities in the celiac and hepatic arteries of doubtful clinical significance. Giovani Martinez MD GI Procedure 11/21/16 0000 Signed Impressions: Service Date/Time: Monday, November 21, 2016 10:44 - CONCLUSION: ERCP as above. Reymundo Wilburn MD FACR Physical Exam CONSTITUTIONAL/GENERAL: This is an adequately nourished patient, in no apparent distress. sedated int'd on vent TUBES/LINES/DRAINS: SKIN: No jaundice, rashes, or lesions. Skin temperature appropriate. Not diaphoretic. EYES: OD - prosthesis Fundi not examined. CARDIOVASCULAR: Regular rate and rhythm + 2/6 systolic murmur, no gallops, or rubs. No JVD. Peripheral pulses symmetric. Well perfused perifery RESPIRATORY/CHEST: Symmetric, unlabored respirations. Rhonchi to auscultation. Breath sounds equal bilaterally. No wheezes, rales, or rhonchi. GASTROINTESTINAL: distended tight abd; incont of liquid brown stool clean incision Bowel sounds hypoactive dignishield in place with liquid dark stool GENITOURINARY: Without palpable bladder distension. Sanchez catheter in place with small amount of dark yellow urine UOP improved MUSCULOSKELETAL: Extremities without clubbing, , + 2-3 + tight edema. improved cyanosis feet, fingers NEUROLOGICAL: On exam: sedated PSYCHIATRIC: unable to assess Assessment & Plan Remarks Volvulus sp colon resection and cholecystectomy path benign:cecum volvulus and chronic calculous cholecstitis Sepsis from intraabdominal source (leukocytosis, leukemoid reaction, hypoxia, JOSUE) leukocytosis, leukemoid reaction: even worse today > 55K persistent severe leukocytosis Pt and her and othe rfamily members deny that pt ever had problems with PCN. Pt states she was given PCN many years ago and it was uneventful Gallstones sp ERCP 2 yrs ago ARF: improving New problem : aspiration, ileus Recurrent VDRF - sp reintubation Melena: CT unremarkable Diarrhea, C.diff negative Rec: fu WBC cont zosyn, fluconazol dc vancomycin start zyvox iv , can switch to oral if tolerates tube feeds Sharon Guerra RN, MD Dec 05, 2016 22:24
[2016-12-06] VITALS (20 sets, daily range): BP systolic 112–123; BP diastolic 57–74; PULSE 66–91; RESP 18; TEMP 96.9–98.6; O2SAT 95–100
[2016-12-06] MEDS: DEXTROSE 5% IV SCH ×6 (00:33→13:34)
[2016-12-06] MEDS: SODIUM BICARBONATE IV SCH ×6 (00:33→13:34)
[2016-12-06] MEDS: POTASSIUM CHLORIDE IV SCH ×6 (00:33→13:34)
[2016-12-06] MEDS: [UNRECOGNIZED DRUG - OTHER] IV SCH ×6 (00:33→13:34)
[2016-12-06] MEDS: RESP: ALBUTEROL 2.5 MG/IPRATROPIUM 0.5 MG NEB (SCH) NEB ×4 (03:15→20:36)
[2016-12-06] MEDS: LINEZOLID 600 MG PREMIX 300 ML IV SCH ×2 (03:18→14:57)
[2016-12-06] MEDS: PIPERACIL-TAZO 2.25 GM PREMIX 50 ML IV SCH ×4 (03:18→20:18)
[2016-12-06] MEDS: PROPOFOL 1000 MG/100 ML INJ 100 ML IV PRN ×6 (03:19→22:39)
[2016-12-06] MEDS: INSULIN NovoLIN REGULAR SUPPLEMENTAL SCALE SQ SCH ×5 (03:21→20:15)
[2016-12-06] MEDS: FREE WATER G-TUBE SCH ×3 (05:03→20:19)
[2016-12-06] MEDS: METOCLOPRAMIDE HCL 10 MG/2 ML VIAL IV PUSH SCH ×3 (05:03→20:19)
[2016-12-06] MEDS: DILTIAZEM HCL 30 MG TAB PO SCH ×3 (05:04→17:28)
[2016-12-06] MEDS: ARTIFICIAL TEARS OPTH SOLN 15 ML BTL LEFT EYE SCH ×3 (05:05→20:20)
[2016-12-06 05:58] LABS: AUTOMATED NEUTROPHIL # 8.8 TH/MM3 (1.8-7.7); BASOPHIL % 0.4 % (0.0-2.0); EOSINOPHIL # 0.1 TH/MM3 (0-0.4); EOSINOPHIL % 1.2 % (0.0-4.0); HEMATOCRIT 26.4 % (35.0-46.0); LYMPH % 7.7 % (9.0-44.0); LYMPHOCYTE # 0.8 TH/MM3 (1.0-4.8); MEAN CELL VOLUME 84.9 FL (80.0-100.0); MEAN CORPUSCULAR HEMOGLOBIN 28.5 PG (27.0-34.0); MEAN CORPUSCULAR HGB CONC 33.6 % (32.0-36.0); MONO % 2.7 % (0.0-8.0); PLATELET COUNT 68 TH/MM3 (150-450); RED BLOOD COUNT 3.11 MIL/MM3 (4.00-5.30); RED CELL DISTRIBUTION WIDTH 16.6 % (11.6-17.2)
[2016-12-06 06:01] LABS: HEMO FLAGS AUTO DIFF
--- NOTE | 2016-12-06 06:11 | RADRPT ---
EXAM DATE/TIME: 12/06/2016 05:19 [facility] COMPARISON: CHEST SINGLE AP, December 03, 2016, 4:16. INDICATIONS : Short of breath. MEDICAL HISTORY : Cardiovascular disease. Cerebrovascular disease. Hypertension. SURGICAL HISTORY : CABG. Hysterectomy. ENCOUNTER: Subsequent ACUITY: 2 weeks PAIN SCORE: Non-responsive. LOCATION: Bilateral chest FINDINGS: A single view of the chest demonstrates an endotracheal tube in good position. Nasogastric tube enter s stomach a right central line in superior vena cava. Patchy basilar airspace consolidation is slight ly improved since December 03. Small effusions remain. CONCLUSION: 1. Slight improvement in basilar airspace disease since December 03. Support apparatus unchanged. Romario Kauffman MD on December 06, 2016 at 6:08 Board Certified Radiologist. This report was verified electronically.
[2016-12-06 06:24] LABS: BICARBONATE 20.6 MEQ/L (21.0-32.0); CALCIUM-PROTEIN CORRECTED 8.4 MG/DL (8.5-10.1); MAGNESIUM 1.5 MG/DL (1.5-2.5); POTASSIUM 3.7 MEQ/L (3.5-5.1); TOTAL BILIRUBIN ADULT 0.7 MG/DL (0.2-1.0)
[2016-12-06 07:45] LABS: PLATELET ESTIMATE SMEAR LOW (NORMAL); PLATELET MORPHOLOGY NORMAL (NORMAL)
[2016-12-06 07:46] LABS: ACANTHOCYTES 1+ (NORMAL); KERATOCYTES OCC (NORMAL); SCAN/DIFF AUTO DIFF CONFIRMED
[2016-12-06 07:47] LABS: DOHLE BODIES PRESENT (NONE SEEN)
--- NOTE | 2016-12-06 08:04 | HHI.CCPN ---
Subjective Remarks/Hospital Course 86 y/o woman developed worsening SOB this afternoon associated with marked leukocytosis. Recent biliary instrumentation for obstruction 48 hours ago and probable sepsis. On appropriate antibiotics. Requiring NRBM now for oxygenation to 97%. Visibly labored breathing. CXR with interstitial edema. EF 35% 2014. Move to ICU. 11/24: Patient s/p colonoscopy this morning which showed mod. diverticulosis in sigmoid colon and hemorrhoids. Remains on NRB with good sats. Afebrile. Cr increased 1.51 from 1.08. 11/25 Patient s/p Ex lap, right colectomy and cholecystectomy. She kept intubated postop went into Afib with RVR overnight and placed on Cardizem drip 10mg/hr. 11/26 Patient is sedated with Diprivan, fentanyl and intubated. Afebrile. On Cardizem drip 5mg/hr. renal function worse with Cr: 2.01 from 1.89, UOP: 1L in 24 hrs 11/27 Patient remains sedated and intubated. Off Cardizem drip. Renal function is improving with Cr: 1.67 from 2.01. Afebrile. 11/28 remains intubated sedated. Heart rate controlled. Creat 1.26. Hb 6.5. Status post 2 units PRBC today. WBC count decreased from 40,000-26,000. Creat improving 1.26 11/29: Patient A. fib with RVR currently on diltiazem drip at 15 mg an hour for rate control. Hemodynamically stable. 11/30: Heart rate better controlled today. Diltiazem drip discontinued overnight. Heart rate currently in the 70s. Tolerated PSV trials yesterday. We'll attempt extubation today if tolerates. No bowel movement. Tolerating tube feeds at 30 cc an hour 12/01: Tmax 101.7. Failed extubation trial after 1 hour yesterday. Persistently hypotensive post intubation. Transfuse 1 unit hemoglobin yesterday for melena per RN. Hemoglobin went from 7.5-11.3. CVP is 12. Enoxaparin will be held. CT thorax, abdomen and pelvis performed now. Lactate pending. Serial hemoglobins. GI consult for EGD 12/03: Patient remains sedated with Diprivan and Fentanyl and intubated. On Levophed 4 mics, Cardizem drip 2.5mg/hr. For EGD today 12/04 Patient is sedated and intubated. s/p EGD yesterday showed gastritis, no active bleeding. Remains on Cardizem 2.5mg/hr and Levophed 3 mics. Afebrile. Subjective 12/05: Afebrile. Hemoglobin stable. Off norepinephrine and diltiazem drips. Creatinine stabilizing. 12/06: No acute events reported overnight. Plan for tracheostomy at 10 AM today. Platelet count is 68,000, discussed this with Dr. Polanco. HIT screen ordered yesterday pending Objective Vital Signs Date Time Temp Pulse Resp B/P (MAP) Pulse Ox O2 Delivery O2 Flow Rate FiO2 12/06/16 06:00 75 12/06/16 04:27 100 35 12/06/16 04:00 97.1 18 114/57 (76) Intake and Output 12/06/16 12/06/16 12/07/16 08:00 16:00 00:00 Intake Total 500 ml Output Total 800 ml Balance -300 ml Result Diagram: 12/06/16 0542 12/06/16 0542 Other Results Microbiology Date/Time Source Procedure Growth Status 12/03/16 15:40 Sputum Endotracheal Gram Stain - Final Complete 12/03/16 15:40 Sputum Culture - Final S. Aureus Mrsa Complete Imaging Last Impressions Abdomen X-Ray 12/04/16 0000 Signed Impressions: Service Date/Time: Sunday, December 04, 2016 11:33 - CONCLUSION: Mild bowel distention likely related to an ileus. Rakesh Miranda MD Chest X-Ray 12/03/16 0600 Signed Impressions: Service Date/Time: Saturday, December 03, 2016 04:16 - CONCLUSION: 1. Increasing basilar airspace disease since December 01. Small effusions. Romario Kauffman MD Chest CT 12/01/16 0000 Signed Impressions: Service Date/Time: Thursday, December 01, 2016 08:13 - CONCLUSION: 1. Severe emphysema with bilateral airspace consolidation in a patchy distribution involving the upper and lower lobes but most severe in the left lower lobe. There is also a trace left pleural effusion. Imaging findings are nonspecific but infection or aspiration should be considerations. 2. Coronary artery calcification. Giovani Lopez MD Abdomen/Pelvis CT 12/01/16 0000 Signed Impressions: Service Date/Time: Thursday, December 01, 2016 08:13 - CONCLUSION: 1. No acute finding is identified to explain the blood in stool. There are postsurgical findings suggesting prior right hemicolectomy. Colon contains a fluid and air and there is sigmoid diverticulosis. 2. Small volume of free fluid in the abdomen and pelvis. Also, there is mild diffuse subcutaneous edema. Giovani Lopez MD Head CT 11/27/16 0000 Signed Impressions: Service Date/Time: Sunday, November 27, 2016 14:47 - CONCLUSION: 1. Questionable edema or subacute infarct in the left parietal deep white matter. This would be better evaluated with MRI. No intracranial hemorrhage or significant mass effect. Romario Kauffman MD Brain MRI 11/27/16 0000 Signed Impressions: Service Date/Time: Sunday, November 27, 2016 18:10 - CONCLUSION: 1. Moderate periventricular and subcortical white matter small vessel ischemic changes bilaterally. 2. 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 3. No acute infarct, acute hemorrhage, mass effect or extra-axial fluid collection. 4. Fluid level within sphenoid sinuses. 5. Fluid within the mastoid air cells bilaterally. Hasmukh Oakes MD Abdomen Ultrasound 11/23/16 0000 Signed Impressions: Service Date/Time: Wednesday, November 23, 2016 19:33 - CONCLUSION: 1. Somewhat limited study. Proximal superior mesenteric artery appears patent. 2. Mildly elevated flow velocities in the celiac and hepatic arteries of doubtful clinical significance. Giovani Martinez MD GI Procedure 11/21/16 0000 Signed Impressions: Service Date/Time: Monday, November 21, 2016 10:44 - CONCLUSION: ERCP as above. Reymundo Wilburn MD FACR Objective Remarks GENERAL: 86 yo female, critically ill currently orotracheally intubated SKIN: Warm and dry. No rash HEAD: Normocephalic. EYES: No scleral icterus. No injection or drainage. 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 NECK: Supple, trachea midline. No JVD or lymphadenopathy. CARDIOVASCULAR: RRR. S1, S2 no S4. 2/6 systolic murmur left lower sternal border/right upper sternal border RESPIRATORY: Breath sounds equal bilaterally. No accessory muscle use. GASTROINTESTINAL: Abdomen soft, tenderness on palpation. MUSCULOSKELETAL: Trace peripheral edema Neuro: Currently on propofol for sedation. Withdraws all 4 extremities to noxious stimulation. Positive gag. 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 Date of Insertion: Nov 24, 2016 Line: Central Venous Catheter Side: Right Location: Internal, Jugular A/P Assessment and Plan Neuro/Psych: History of chronic bilateral basal ganglia CVA Acute toxic metabolic encephalopathy Prosthetic left eye Currently on propofol and/fentanyl drip as needed infusion for sedation/ analgesia while intubated Goal of RASS -2 Daily sedation vacation. MRI brain 11/27 showed moderate small vessel disease, old bilateral basal ganglia CVA however no acute findings. Evaluated by Dr. Roque - neurology Continue amitriptyline 10 mg at night Acetaminophen 650 mg by tube every 6 hours. Fever Pulm: Acute hypoxemic respiratory failure- Extubated and reintubated on 11/30 History of COPD ACV 18///40. Ventilator bundle. Plan for trach with Dr. Polanco today 12/06/16 Albuterol/ipratropium aerosols every 6 hours with albuterol aerosols every 2 hours as needed for dyspnea Continue with vent support and maintain sat >92%. SBT daily as adelina. Tolerated extubation 1.5 hours a 11/30. CT chest 11/20: Severe underlying emphysema. Status post median sternotomy with postsurgical changes. CT thorax 11/30 revealed severe emphysema. Bilateral upper and lower lobe infiltrates/glass ground likely aspiration. CV: Systolic heart failure - likely chronic ejection fraction 40% Severe sepsis Atrial Fibrillation w/ RVR - normal sinus rhythm History of hypertension Severe pulmonary hypertension likely group 3 secondary to COPD PAD history of bilateral CEA Currently on diltiazem 30 mg by mouth every 6 hours. Currently normal sinus rhythm Echo from 11/26 EF 40%, mild MR. Moderate AR/TR. Severe pulmonary HTN (PAP 70mmHg) ASA 81 mg daily held in light of GI bleeding Continue Atorvastatin 80 mg daily RENAL//FEN: Acute kidney injury improving Hypernatremia Monitor renal function, I/O's, avoid nephrotoxins Nephrology is following- Dr. Ferrari Free water 200ml Q8, monitor sodium level on currently on D5 water with 75 mEq bicarbonate and 20 mEq potassium chloride at 90 cc an hour. 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 Gastroesophageal reflux disease Transaminitis Hyperammonia Constipation Glucerna 1.5@ 45 cc an hour on hold. KUB 12/04 revealed mild ileus. 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 Mild head pancreatitis possible in the proper clinical setting. Patient has recently had ERCP and bile duct stone extraction. Bibasilar pneumonia developing. Tiny pleural effusion on the right US abdomen: Proximal superior mesenteric artery appears patent. Currently on lactulose 30 cc twice a day. Ammonia level 42 on 12/06 On ursodiol 300 mg by mouth twice daily. Resume when clinically indicated On metoclopramide per Dr. Polanco for bowel prokinetic medication ID: MRSA pneumonia Continue with abx per ID (piperacillin/tazobactam/fluconazole/vancomycin) Monitor for signs of infections ( Fever, WBC) WBC is trending down Pertinent cultures BC 11/24: NGTD . Blood cultures 11/29 -no growth C. difficile negative 12/01 12/03 - blood cultures 2 - no growth 12/03 - sputum - MRSA Heme: Leukocytosis..trending down Normocytic anemia Thrombocytopenia Monitor CBC Status post 2 units PRBCs 11/28. 1 unit PRBCs 12/01 Hemoccult stool 11/30 positive HIT pending. LDH, haptoglobin and peripheral smear ordered by Dr. Oh, pending Endo: SSI with accuchecks with Novulin R every 4 hours GI prophylaxis- Pantoprazole 40mg IV twice a day DVT prophylaxis- Enoxaparin 30mg daily held in light of GI bleed, thrombocytopenia Lines: Right IJ placed in OR 11/24 Critical Care: The total critical care time was 30 minutes. Time to perform other separately billable procedures was not included in the critical care time. Ruddy Matute MD Dec 06, 2016 08:04
[2016-12-06] MEDS: LACTULOSE SYRUP 20 GM/30 ML CUP NG SCH ×2 (08:05→11:00)
[2016-12-06] MEDS: PANTOPRAZOLE SODIUM 40 MG VIAL IV PUSH SCH ×2 (08:05→20:19)
[2016-12-06] MEDS: URSODIOL 300 MG CAP PO SCH ×2 (08:05→20:18)
[2016-12-06] MEDS: SODIUM CHLORIDE 0.9% FLUSH 10 ML FLUSH IV FLUSH SCH ×2 (08:06→20:20)
[2016-12-06] MEDS ORDERED: ROCURONIUM INJ 50 MG/5 ML VIAL IV ONE (10:00)
[2016-12-06] MEDS ORDERED: MIDAZOLAM HCL 5 MG/5 ML VIAL IV PUSH ONE (10:00)
[2016-12-06] MEDS ORDERED: fentaNYL CITRATE 250 MCG/5 ML AMP IV PUSH ONE (10:00)
[2016-12-06] MEDS ORDERED: MIDAZOLAM HCL 5 MG/ML VIAL (1 ML) ONE (10:06)
--- NOTE | 2016-12-06 10:42 | PD.PROCEDR ---
Procedure Note Procedure Procedure fiberoptic bronchoscopy for bronchoscopy guided percutaneous tracheostomy Operators: Dr. Emily Matute for fiberoptic bronchoscopy/ Dr. Polanco for percutaneous tracheostomy Informed consent obtained from family and documented in chart Anesthesia/ sedation: IV Versed/Fentanyl/Rocuronium Procedure: Patient was placed on 100% oxygen via ET tube/mechanical ventilator. After ensuring adequate sedation/analgesia/ neuromuscular blockade, fiberoptic bronchoscope was inserted via adapter on ET tube and advanced into the trachea upto the kashif. Following this bronchoscope was withdrawn back to the tip of ET tube. After deflating cuff of ET tube it was withdrawn back to the 16 cm zev. Subsequent steps of percutaneous tracheostomy were directly visualized on video monitor via bronchoscopy including insertion of introducer catheter followed by guidewire and then insertion of tracheal dilator followed by insertion of tracheostomy tube. The bronchoscope was then withdrawn out of the ET tube and was inserted down the percutaneous tracheostomy and correct placement was confirmed by visualizing tracheal rings following which bronchoscope was withdrawn. Inner cannula was placed and after inflating cuff, patient was connected to mechanical ventilation via tracheostomy tube. Bronchoscope was reinserted via ET tube and minimal mucus plug was suctioned out from L main bronchus. Patient tolerated the procedure well with no immediate complications noted. Post procedure CXR ordered and was pending. Ruddy Matute MD Dec 06, 2016 10:42
--- NOTE | 2016-12-06 11:08 | PD.PROCEDR ---
Procedure Note Procedure EBL: 5 cc Procedure in detail: The patient remained in the intensive care unit bed. She was placed in supine position with the neck slightly hyperextended. The patient was administered sedative and paralytic medications per Dr. Matute of intensive care. The anterior neck was prepped and draped in usual sterile fashion. A 1 cm incision was made about 1 fingerbreadth superior to the sternal notch. Minimal blunt dissection was carried out. The bronchoscope was inserted down the endotracheal tube which was withdrawn past the site of the anticipated entry into the trachea. The large-bore needle and catheter were inserted through the anterior trachea and there was air aspirated into the syringe. The wire fed easily and this was also visualized via the bronchoscope. The tract was then serially dilated with the punch dilator and the Blue Rhino dilator. The Shiley #8 tracheostomy tube with guide was placed over the wire and easily entered the trachea. This was also visualized bronchoscopically. The bronchoscope was inserted down the trach tube and the position again confirmed. The cuff was inflated and the apparatus switched to the trach tube. There was adequate tidal volumes. The trach was sutured in place with 4 separate 2-0 Prolene sutures. A dressing and trach collar was applied. The patient tolerated procedure well and remained in his intensive care unit bed. Bryant Polanco MD Dec 06, 2016 11:08
--- NOTE | 2016-12-06 11:27 | RADRPT ---
EXAM DATE/TIME: 12/06/2016 10:31 [facility] COMPARISON: CHEST SINGLE AP, December 06, 2016, 5:19. INDICATIONS : Tracheostomy placement. MEDICAL HISTORY : Hypertension. Stroke. SURGICAL HISTORY : Hysterectomy. CABG. ENCOUNTER: Initial ACUITY: 2 weeks PAIN SCORE: Non-responsive. LOCATION: Bilateral chest FINDINGS: Single AP view of the chest. Tracheostomy tube is now in place with the tip in the mid thoracic trach ea. Endotracheal tube no longer seen. Nasogastric tube and right IJ central venous catheter remain in place. Persistent bilateral interstitial pulmonary parenchymal opacity. No evidence of pleural effus ion or pneumothorax. CONCLUSION: Tracheostomy tube now in place. No significant interval change in bilateral pulmonary opacity. Darrion Gambino MD on December 06, 2016 at 11:24 Board Certified Radiologist. This report was verified electronically.
[2016-12-06] MEDS: FLUCONAZOLE 400 MG PREMIX BAG 200 ML IV SCH (12:36)
--- NOTE | 2016-12-06 16:14 | HHI.PR ---
Addendum to Inpatient Note Additional Information Pt seen today around 1415 full note to follow Sharon Samayoa MD Dec 06, 2016 16:14
--- NOTE | 2016-12-06 17:51 | HHI.NPPN ---
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 Patient also underwent repeat ERCP for obstructed bile duct November 21, 2016. Patient noted to have had a serum creatinine level 0.8 15 September 2016. On presentation creatinine level at this institution 1.59 and has now deteriorated to 2.01. Patient in the ICU with development of respiratory insufficiency and worsening leukocytosis. Patient unable to provide any history secondary to her clinical condition. Interval History Patient with tracheostomy, lethargic. Not responsive to simple commands or questions. Review of Systems General General Remarks Unable to obtain 2/2 to clinical condition Objective Data Data 12/06/16 12/07/16 19:00 07:00 Intake Total 600 ml Balance 600 ml IV Total 600 ml Vital Signs Date Time Temp Pulse Resp B/P (MAP) Pulse Ox O2 Delivery O2 Flow Rate FiO2 12/06/16 17:21 97 35 12/06/16 16:00 80 12/06/16 16:00 98.3 80 18 121/59 (79) 96 12/06/16 16:00 35 12/06/16 14:00 75 12/06/16 13:04 100 35 12/06/16 12:00 98.1 77 18 112/58 (76) 100 12/06/16 12:00 35 12/06/16 12:00 77 12/06/16 10:42 100 50 12/06/16 10:15 99 100 12/06/16 10:00 74 12/06/16 08:56 95 35 12/06/16 08:00 40 12/06/16 08:00 72 12/06/16 08:00 98.2 71 18 115/74 (88) 98 12/06/16 06:00 75 12/06/16 04:27 100 35 12/06/16 04:00 68 12/06/16 04:00 97.1 66 18 114/57 (76) 98 12/06/16 04:00 40 12/06/16 02:00 67 12/06/16 00:19 96 35 12/06/16 00:00 66 12/06/16 00:00 96.9 67 18 123/57 (79) 96 12/06/16 00:00 40 12/05/16 22:00 67 12/05/16 21:10 94 35 12/05/16 20:00 66 12/05/16 20:00 40 12/05/16 20:00 96.6 67 18 109/53 (71) 94 12/05/16 18:00 69 -: 12/06/16 0542 12/06/16 0542 Physical Exam General Appearance: No Acute Distress Neck Neck Exam: Trachea Midline Pulmonary Resp Exam: Breath Sounds Equal, Diminished Breath Sounds Cardiology CV Exam: Normal Sinus Rhythm, Irregular, Murmur Extremeties Extremities Exam: Moderate Edema (2+ pitting BUE and BLE) Neurologic Neuro Exam: Unresponsive Assessment/Plan Problem List: (1) JOSUE (acute kidney injury) ICD Codes: N17.9 - JOSUE (acute kidney injury) Status: Acute Plan: Patient's renal indices now within normal range. We'll discontinue IV fluids with sodium bicarbonate and potassium chloride. Change supplementation to enteral. Noted palliative consult. Family continues to want aggressive care but overall the patient's prognosis appears to be very poor despite improvement in renal indices in my opinion. In view of improvement in renal function will sign off at this point in time. Please call if required. Medications should be adjusted for the patient's estimated GFR if clinically indicated. Avoid agents with significant potential for nephrotoxicity possible including NSAIDs for analgesia, iodine contrast agents. Gadolinium is contraindicated if the GFR is below 30. Permanent Comment: Secondary to sepsis. Last Edited By: Radha Ferrari on Nov 26, 2016 11:19 (2) Sepsis ICD Codes: A41.9 - Sepsis, unspecified organism Plan: Management per infectious disease. Permanent Comment: Patient status post right colectomy for volvulus as well as ERCP obstructed bile duct November 21, 2016. Last Edited By: Radha Ferrari on Nov 26, 2016 11:20 (3) Hypernatremia ICD Codes: E87.0 - Hyperosmolality and hypernatremia Status: Resolved Plan: Resolved with D5 and free water (4) Hypertension ICD Codes: I10 - Hypertension Status: Chronic Plan: As per hx. Hypotensive in house requiring inotropic support Plan The exam, history, and the medical decision-making described in the above note were completed with the assistance of the REKHA. I reviewed and agree with the findings presented. Problem Qualifiers (1) Hypertension: Qualified Codes: I10 - Essential (primary) hypertension Kesha Ferrari MD Dec 06, 2016 17:51
[2016-12-06 18:06] LABS: HEPARIN INDUCED PLATELET AB NEGATIVE (NEGATIVE)
[2016-12-06] MEDS: SODIUM BICARBONATE 325 MG TAB NG SCH (18:29)
[2016-12-06] MEDS: ATORVASTATIN 80 MG TAB PO SCH (20:19)
--- NOTE | 2016-12-06 23:11 | HHI.IDPN ---
Subjective Subjective Remarks Pt seen today around 1415 delayed entry dw RN cont to have liquid diarrhea not tolerating tube feeds (high residuals), even trickle TF off sedation not interactive not FC afebrile + copious secretions c.diff negative Antibiotics zosyn zyvox Lines Line sites with no e.o infection Past Medical History reviewed Allergies: Coded Allergies: No Known Allergies (Unverified , 11/24/16) Objective . Vital Signs Date Time Temp Pulse Resp B/P (MAP) Pulse Ox O2 Delivery O2 Flow Rate FiO2 12/06/16 20:37 100 35 12/06/16 18:00 84 12/06/16 17:21 97 35 12/06/16 16:00 80 12/06/16 16:00 98.3 80 18 121/59 (79) 96 12/06/16 16:00 35 12/06/16 14:00 75 12/06/16 13:04 100 35 12/06/16 12:00 98.1 77 18 112/58 (76) 100 12/06/16 12:00 35 12/06/16 12:00 77 12/06/16 10:42 100 50 12/06/16 10:15 99 100 12/06/16 10:00 74 12/06/16 08:56 95 35 12/06/16 08:00 40 12/06/16 08:00 72 12/06/16 08:00 98.2 71 18 115/74 (88) 98 12/06/16 06:00 75 12/06/16 04:27 100 35 12/06/16 04:00 68 12/06/16 04:00 97.1 66 18 114/57 (76) 98 12/06/16 04:00 40 12/06/16 02:00 67 12/06/16 00:19 96 35 12/06/16 00:00 66 12/06/16 00:00 96.9 67 18 123/57 (79) 96 12/06/16 00:00 40 12/06/16 12/06/16 12/07/16 15:00 23:00 07:00 Intake Total 250 ml 950 ml Output Total 1025 ml Balance 250 ml -75 ml IV Total 250 ml 710 ml Tube Feeding 0 ml Other 240 ml Output Urine Total 900 ml Gastric Drainage Total 125 ml # Bowel Movements 2 . Laboratory Tests Test 12/05/16 06:15 12/05/16 06:41 12/05/16 08:05 12/06/16 05:42 White Blood Count 13.0 TH/MM3 10.0 TH/MM3 Red Blood Count 2.89 MIL/MM3 3.11 MIL/MM3 Hemoglobin 8.1 GM/DL 8.9 GM/DL Hematocrit 24.4 % 26.4 % Mean Corpuscular Volume 84.4 FL 84.9 FL Mean Corpuscular Hemoglobin 28.1 PG 28.5 PG Mean Corpuscular Hemoglobin Concent 33.2 % 33.6 % Red Cell Distribution Width 16.4 % 16.6 % Platelet Count 83 TH/MM3 68 TH/MM3 Mean Platelet Volume 10.4 FL 10.4 FL Neutrophils (%) (Auto) 90.2 % 88.0 % Lymphocytes (%) (Auto) 5.6 % 7.7 % Monocytes (%) (Auto) 3.0 % 2.7 % Eosinophils (%) (Auto) 0.9 % 1.2 % Basophils (%) (Auto) 0.3 % 0.4 % Neutrophils # (Auto) 11.7 TH/MM3 8.8 TH/MM3 Lymphocytes # (Auto) 0.7 TH/MM3 0.8 TH/MM3 Monocytes # (Auto) 0.4 TH/MM3 0.3 TH/MM3 Eosinophils # (Auto) 0.1 TH/MM3 0.1 TH/MM3 Basophils # (Auto) 0.0 TH/MM3 0.0 TH/MM3 CBC Comment AUTO DIFF AUTO DIFF Differential Comment AUTO DIFF CONFIRMED AUTO DIFF CONFIRMED Dohle Bodies PRESENT PRESENT Platelet Estimate LOW LOW Platelet Morphology Comment ENLARGED NORMAL Acanthocytes 1+ 1+ Keratocytes OCC Blood Smear Pathologist Review Haptoglobin 138 MG/DL Laboratory Tests Test 12/05/16 06:15 12/05/16 08:05 12/05/16 23:15 12/06/16 05:42 Blood Urea Nitrogen 15 MG/DL 11 MG/DL Creatinine 0.91 MG/DL 0.89 MG/DL Random Glucose 129 MG/DL 156 MG/DL Total Protein 5.1 GM/DL 4.9 GM/DL Calcium Level 7.2 MG/DL 7.2 MG/DL Sodium Level 144 MEQ/L 141 MEQ/L Potassium Level 3.0 MEQ/L 3.8 MEQ/L 3.7 MEQ/L Chloride Level 114 MEQ/L 111 MEQ/L Carbon Dioxide Level 21.1 MEQ/L 20.6 MEQ/L Anion Gap 9 MEQ/L 9 MEQ/L Estimat Glomerular Filtration Rate 59 ML/MIN 60 ML/MIN Protein Corrected Calcium 8.3 MG/DL 8.4 MG/DL Phosphorus Level 2.0 MG/DL 2.0 MG/DL Magnesium Level 1.6 MG/DL 1.5 MG/DL Lactate Dehydrogenase 239 U/L Albumin 1.2 GM/DL Alkaline Phosphatase 90 U/L Aspartate Amino Transf (AST/SGOT) 23 U/L Alanine Aminotransferase (ALT/SGPT) 12 U/L Total Bilirubin 0.7 MG/DL Ammonia 42 MCMOL/L Imaging Last Impressions Chest X-Ray 12/06/16 0600 Signed Impressions: Service Date/Time: November 05:19 - CONCLUSION: 1. Slight improvement in basilar airspace disease since December 03. Support apparatus unchanged. Romario Kauffman MD Abdomen X-Ray 12/04/16 0000 Signed Impressions: Service Date/Time: Sunday, December 04, 2016 11:33 - CONCLUSION: Mild bowel distention likely related to an ileus. Rakesh Miranda MD Chest CT 12/01/16 0000 Signed Impressions: Service Date/Time: Thursday, December 01, 2016 08:13 - CONCLUSION: 1. Severe emphysema with bilateral airspace consolidation in a patchy distribution involving the upper and lower lobes but most severe in the left lower lobe. There is also a trace left pleural effusion. Imaging findings are nonspecific but infection or aspiration should be considerations. 2. Coronary artery calcification. Giovani Lopez MD Abdomen/Pelvis CT 12/01/16 0000 Signed Impressions: Service Date/Time: Thursday, December 01, 2016 08:13 - CONCLUSION: 1. No acute finding is identified to explain the blood in stool. There are postsurgical findings suggesting prior right hemicolectomy. Colon contains a fluid and air and there is sigmoid diverticulosis. 2. Small volume of free fluid in the abdomen and pelvis. Also, there is mild diffuse subcutaneous edema. Giovani Lopez MD Head CT 11/27/16 0000 Signed Impressions: Service Date/Time: Sunday, November 27, 2016 14:47 - CONCLUSION: 1. Questionable edema or subacute infarct in the left parietal deep white matter. This would be better evaluated with MRI. No intracranial hemorrhage or significant mass effect. Romario Kauffman MD Brain MRI 11/27/16 0000 Signed Impressions: Service Date/Time: Sunday, November 27, 2016 18:10 - CONCLUSION: 1. Moderate periventricular and subcortical white matter small vessel ischemic changes bilaterally. 2. 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 3. No acute infarct, acute hemorrhage, mass effect or extra-axial fluid collection. 4. Fluid level within sphenoid sinuses. 5. Fluid within the mastoid air cells bilaterally. Hasmukh Oakes MD Abdomen Ultrasound 11/23/16 0000 Signed Impressions: Service Date/Time: Wednesday, November 23, 2016 19:33 - CONCLUSION: 1. Somewhat limited study. Proximal superior mesenteric artery appears patent. 2. Mildly elevated flow velocities in the celiac and hepatic arteries of doubtful clinical significance. Giovani Martinez MD GI Procedure 11/21/16 0000 Signed Impressions: Service Date/Time: Monday, November 21, 2016 10:44 - CONCLUSION: ERCP as above. Reymundo Wilburn MD FACR Physical Exam CONSTITUTIONAL/GENERAL: This is an adequately nourished patient, in no apparent distress. sedated int'd on vent TUBES/LINES/DRAINS: SKIN: No jaundice, rashes, or lesions. Skin temperature appropriate. Not diaphoretic. EYES: OD - prosthesis Fundi not examined. CARDIOVASCULAR: Regular rate and rhythm + 2/6 systolic murmur, no gallops, or rubs. No JVD. Peripheral pulses symmetric. Well perfused perifery RESPIRATORY/CHEST: Symmetric, unlabored respirations. Rhonchi to auscultation. Breath sounds equal bilaterally. No wheezes, rales, or rhonchi. GASTROINTESTINAL:less distended abd; incont of liquid brown stool clean incision Bowel sounds hypoactive dignishield in place with liquid dark stool GENITOURINARY: Without palpable bladder distension. Sanchez catheter in place with small amount of dark yellow urine UOP improved MUSCULOSKELETAL: Extremities without clubbing, , + 2-3 + tight edema. improved cyanosis feet, fingers NEUROLOGICAL: On exam: sedated PSYCHIATRIC: unable to assess Assessment & Plan Remarks Volvulus sp colon resection and cholecystectomy path benign:cecum volvulus and chronic calculous cholecstitis Sepsis from intraabdominal source (leukocytosis, leukemoid reaction, hypoxia, JOSUE) leukocytosis, leukemoid reaction: even worse today > 55K persistent severe leukocytosis Pt and her and othe rfamily members deny that pt ever had problems with PCN. Pt states she was given PCN many years ago and it was uneventful Gallstones sp ERCP 2 yrs ago ARF: improving New problem : aspiration, ileus Recurrent VDRF - sp reintubation Melena: CT unremarkable Diarrhea, C.diff negative Thrombocytopenia : HIT negative; zyvox just started, unlikely to contribtute at this point, though other abx (zosyn, vanco) also can be implicated in thrombocytopenia Rec: fu WBC monitor plts chk fibrinogen cont zosyn, fluconazol cont zyvox iv , can switch to oral if tolerates tube feeds Sharon Guerra RN, MD Dec 06, 2016 23:11
[2016-12-07] VITALS (19 sets, daily range): BP systolic 102–137; BP diastolic 52–64; PULSE 78–93; RESP 18–32; TEMP 98–99.4; O2SAT 94–99
[2016-12-07] MEDS: INSULIN NovoLIN REGULAR SUPPLEMENTAL SCALE SQ SCH ×7 (00:15→23:46)
[2016-12-07] MEDS: DILTIAZEM HCL 30 MG TAB PO SCH ×5 (00:16→23:46)
[2016-12-07] MEDS: RESP: ALBUTEROL 2.5 MG/IPRATROPIUM 0.5 MG NEB (SCH) NEB ×4 (03:20→22:17)
[2016-12-07] MEDS: PIPERACIL-TAZO 2.25 GM PREMIX 50 ML IV SCH ×4 (03:54→20:18)
[2016-12-07] MEDS: LINEZOLID 600 MG PREMIX 300 ML IV SCH ×2 (03:54→14:21)
[2016-12-07] MEDS: PROPOFOL 1000 MG/100 ML INJ 100 ML IV PRN ×3 (04:05→14:27)
[2016-12-07] MEDS: FREE WATER G-TUBE SCH ×3 (06:00→20:19)
[2016-12-07] MEDS: ARTIFICIAL TEARS OPTH SOLN 15 ML BTL LEFT EYE SCH ×3 (06:05→20:19)
[2016-12-07] MEDS: METOCLOPRAMIDE HCL 10 MG/2 ML VIAL IV PUSH SCH ×3 (06:06→20:18)
[2016-12-07] MEDS: LACTULOSE SYRUP 20 GM/30 ML CUP NG SCH ×2 (08:20→20:18)
[2016-12-07] MEDS: SODIUM BICARBONATE 325 MG TAB NG SCH ×3 (08:20→17:46)
[2016-12-07] MEDS: SODIUM CHLORIDE 0.9% FLUSH 10 ML FLUSH IV FLUSH SCH ×2 (08:20→20:19)
[2016-12-07] MEDS: PANTOPRAZOLE SODIUM 40 MG VIAL IV PUSH SCH ×2 (08:20→20:18)
[2016-12-07] MEDS: URSODIOL 300 MG CAP PO SCH ×2 (08:20→20:18)
[2016-12-07] MEDS: POTASSIUM CHLORIDE 25 MEQ EFFERVESCENT TAB NG SCH (08:21)
--- NOTE | 2016-12-07 09:59 | HHI.CCPN ---
Subjective Remarks/Hospital Course 86 y/o woman developed worsening SOB this afternoon associated with marked leukocytosis. Recent biliary instrumentation for obstruction 48 hours ago and probable sepsis. On appropriate antibiotics. Requiring NRBM now for oxygenation to 97%. Visibly labored breathing. CXR with interstitial edema. EF 35% 2014. Move to ICU. 11/24: Patient s/p colonoscopy this morning which showed mod. diverticulosis in sigmoid colon and hemorrhoids. Remains on NRB with good sats. Afebrile. Cr increased 1.51 from 1.08. 11/25 Patient s/p Ex lap, right colectomy and cholecystectomy. She kept intubated postop went into Afib with RVR overnight and placed on Cardizem drip 10mg/hr. 11/26 Patient is sedated with Diprivan, fentanyl and intubated. Afebrile. On Cardizem drip 5mg/hr. renal function worse with Cr: 2.01 from 1.89, UOP: 1L in 24 hrs 11/27 Patient remains sedated and intubated. Off Cardizem drip. Renal function is improving with Cr: 1.67 from 2.01. Afebrile. 11/28 remains intubated sedated. Heart rate controlled. Creat 1.26. Hb 6.5. Status post 2 units PRBC today. WBC count decreased from 40,000-26,000. Creat improving 1.26 11/29: Patient A. fib with RVR currently on diltiazem drip at 15 mg an hour for rate control. Hemodynamically stable. 11/30: Heart rate better controlled today. Diltiazem drip discontinued overnight. Heart rate currently in the 70s. Tolerated PSV trials yesterday. We'll attempt extubation today if tolerates. No bowel movement. Tolerating tube feeds at 30 cc an hour 12/01: Tmax 101.7. Failed extubation trial after 1 hour yesterday. Persistently hypotensive post intubation. Transfuse 1 unit hemoglobin yesterday for melena per RN. Hemoglobin went from 7.5-11.3. CVP is 12. Enoxaparin will be held. CT thorax, abdomen and pelvis performed now. Lactate pending. Serial hemoglobins. GI consult for EGD 12/03: Patient remains sedated with Diprivan and Fentanyl and intubated. On Levophed 4 mics, Cardizem drip 2.5mg/hr. For EGD today 12/04 Patient is sedated and intubated. s/p EGD yesterday showed gastritis, no active bleeding. Remains on Cardizem 2.5mg/hr and Levophed 3 mics. Afebrile. Subjective 12/05: Afebrile. Hemoglobin stable. Off norepinephrine and diltiazem drips. Creatinine stabilizing. 12/06: No acute events reported overnight. Plan for tracheostomy at 10 AM today. Platelet count is 68,000, discussed this with Dr. Polanco. HIT screen ordered yesterday pending 12/07 Patient s/p trach yesterday sedated with Diprivan. Afebrile. Objective Vital Signs Date Time Temp Pulse Resp B/P (MAP) Pulse Ox O2 Delivery O2 Flow Rate FiO2 12/07/16 08:45 96 35 12/07/16 08:00 79 12/07/16 08:00 98.0 20 137/64 (88) Intake and Output 12/07/16 12/07/16 12/08/16 08:00 16:00 00:00 Intake Total 1104 ml Output Total 1000.0 ml Balance 104.0 ml Result Diagram: 12/06/16 0542 12/06/16 0542 Other Results Laboratory Tests Test 12/07/16 04:00 Fibrinogen 611 mg/dL Imaging Last Impressions Chest X-Ray 12/06/16 0600 Signed Impressions: Service Date/Time: November 05:19 - CONCLUSION: 1. Slight improvement in basilar airspace disease since December 03. Support apparatus unchanged. Romario Kauffman MD Abdomen X-Ray 12/04/16 0000 Signed Impressions: Service Date/Time: Sunday, December 04, 2016 11:33 - CONCLUSION: Mild bowel distention likely related to an ileus. Rakesh Miranda MD Chest CT 12/01/16 0000 Signed Impressions: Service Date/Time: Thursday, December 01, 2016 08:13 - CONCLUSION: 1. Severe emphysema with bilateral airspace consolidation in a patchy distribution involving the upper and lower lobes but most severe in the left lower lobe. There is also a trace left pleural effusion. Imaging findings are nonspecific but infection or aspiration should be considerations. 2. Coronary artery calcification. Giovani Lopez MD Abdomen/Pelvis CT 12/01/16 Signed Impressions: Service Date/Time: Thursday, December 01, 2016 08:13 - CONCLUSION: 1. No acute finding is identified to explain the blood in stool. There are postsurgical findings suggesting prior right hemicolectomy. Colon contains a fluid and air and there is sigmoid diverticulosis. 2. Small volume of free fluid in the abdomen and pelvis. Also, there is mild diffuse subcutaneous edema. Giovani Lopez MD Head CT 11/27/16 Signed Impressions: Service Date/Time: Sunday, November 27, 2016 14:47 - CONCLUSION: 1. Questionable edema or subacute infarct in the left parietal deep white matter. This would be better evaluated with MRI. No intracranial hemorrhage or significant mass effect. Romario Kauffman MD Brain MRI 11/27/16 Signed Impressions: Service Date/Time: Sunday, November 27, 2016 18:10 - CONCLUSION: 1. Moderate periventricular and subcortical white matter small vessel ischemic changes bilaterally. 2. 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 3. No acute infarct, acute hemorrhage, mass effect or extra-axial fluid collection. 4. Fluid level within sphenoid sinuses. 5. Fluid within the mastoid air cells bilaterally. Hasmukh Oakes MD Abdomen Ultrasound 11/23/16 Signed Impressions: Service Date/Time: Wednesday, November 23, 2016 19:33 - CONCLUSION: 1. Somewhat limited study. Proximal superior mesenteric artery appears patent. 2. Mildly elevated flow velocities in the celiac and hepatic arteries of doubtful clinical significance. Giovani Martinez MD GI Procedure 11/21/16 Signed Impressions: Service Date/Time: Monday, November 21, 2016 10:44 - CONCLUSION: ERCP as above. Reymundo Wilburn MD FACR Objective Remarks GENERAL: 86 yo female, on ventilator via trach SKIN: Warm and dry. No rash HEAD: Normocephalic. EYES: No scleral icterus. No injection or drainage. 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 NECK: Supple, trachea midline. No JVD or lymphadenopathy. CARDIOVASCULAR: RRR. S1, S2 no S4. 2/6 systolic murmur left lower sternal border/right upper sternal border RESPIRATORY: Breath sounds equal bilaterally. No accessory muscle use. GASTROINTESTINAL: Abdomen soft, tenderness on palpation. MUSCULOSKELETAL: Trace peripheral edema Neuro: Currently on propofol for sedation. Withdraws all 4 extremities to noxious stimulation. Positive gag. 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 Date of Insertion: Nov 24, 2016 Line: Central Venous Catheter Side: Right Location: Internal, Jugular A/P Assessment and Plan Neuro/Psych: History of chronic bilateral basal ganglia CVA Acute toxic metabolic encephalopathy Prosthetic left eye Currently on propofol as needed infusion for sedation/analgesia while intubated Goal of RASS -2 Daily sedation vacation. MRI brain 11/27 showed moderate small vessel disease, old bilateral basal ganglia CVA however no acute findings. Evaluated by Dr. Roque - neurology Continue amitriptyline 10 mg at night Acetaminophen 650 mg by tube every 6 hours. Fever Pulm: Acute hypoxemic respiratory failure- Extubated and reintubated on 11/30 History of COPD ACV 18// Ventilator bundle. s/p trach 12/06 Albuterol/ipratropium aerosols every 6 hours with albuterol aerosols every 2 hours as needed for dyspnea Continue with vent support and maintain sat >92%. SBT daily as adelina. Tolerated extubation 1.5 hours a 11/30. CT chest 11/20: Severe underlying emphysema. Status post median sternotomy with postsurgical changes. CT thorax 11/30 revealed severe emphysema. Bilateral upper and lower lobe infiltrates/glass ground likely aspiration. CV: Systolic heart failure - likely chronic ejection fraction 40% Severe sepsis Atrial Fibrillation w/ RVR - normal sinus rhythm History of hypertension Severe pulmonary hypertension likely group 3 secondary to COPD PAD history of bilateral CEA Currently on diltiazem 30 mg by mouth every 6 hours. Echo from 11/26 EF 40%, mild MR. Moderate AR/TR. Severe pulmonary HTN (PAP 70mmHg) ASA 81 mg daily held in light of GI bleeding Continue Atorvastatin 80 mg daily RENAL//FEN: Acute kidney injury resolved Monitor renal function, I/O's, avoid nephrotoxins Nephrology is following- Dr. Ferrari Free water 200ml Q8, monitor sodium level GI: Cecal Volvulus s/p Exp lap, right colectomy and cholecystectomy 11/24 S/P biliary manipulation ERCP for obstructed duct with stones and sludge 11/21. Gastroesophageal reflux disease Transaminitis Hyperammonia Constipation Glucerna 1.5@ 10 ml/hr with goal rate 45 cc KUB 12/04 revealed mild ileus. Having bowel movements Check KUB today Cecal Volvulus s/p Exp lap, right colectomy and cholecystectomy 11/24 s/p Colonoscopy 11/24 showed Diverticulosis in sigmoid colon, internal and external hemorrhoids CT abd/pelvis: Bowel gas pattern most compatible a cecal volvulus and does appear to be contributing to associated obstruction. Mild head pancreatitis possible in the proper clinical setting. Patient has recently had ERCP and bile duct stone extraction. Bibasilar pneumonia developing. Tiny pleural effusion on the right US abdomen: Proximal superior mesenteric artery appears patent. Currently on lactulose 30 cc twice a day. Ammonia level 42 on 12/06 On ursodiol 300 mg by mouth twice daily. Resume when clinically indicated On metoclopramide per Dr. Polanco for bowel prokinetic medication ID: MRSA pneumonia Continue with abx per ID (piperacillin/tazobactam/fluconazole/vancomycin) Monitor for signs of infections ( Fever, WBC) WBC is trending down, recheck sputum cx today Pertinent cultures BC 11/24: NGTD . Blood cultures 11/29 -no growth C. difficile negative 12/01 12/03 - blood cultures 2 - no growth 12/03 - sputum - MRSA Heme: Leukocytosis..trending down Normocytic anemia Thrombocytopenia Monitor CBC Status post 2 units PRBCs 11/28. 1 unit PRBCs 12/01 Hemoccult stool 11/30 positive HIT negative Endo: SSI with accuchecks with Novulin R every 4 hours GI prophylaxis- Pantoprazole 40mg IV twice a day DVT prophylaxis- Enoxaparin 30mg daily held in light of GI bleed, thrombocytopenia Lines: Right IJ placed in OR 11/24, d/c central line and place peripheral IV's Follow up on labs Level 3 Marian Rodríguez MD Dec 07, 2016 09:59
[2016-12-07 10:52] LABS: HEMATOCRIT 27.9 % (35.0-46.0); MEAN CELL VOLUME 83.9 FL (80.0-100.0); MEAN CORPUSCULAR HEMOGLOBIN 28.3 PG (27.0-34.0); MEAN CORPUSCULAR HGB CONC 33.7 % (32.0-36.0); PLATELET COUNT 67 TH/MM3 (150-450); RED BLOOD COUNT 3.33 MIL/MM3 (4.00-5.30); RED CELL DISTRIBUTION WIDTH 16.6 % (11.6-17.2); WHITE BLOOD COUNT 10.8 TH/MM3 (4.0-11.0)
[2016-12-07 10:58] LABS: HEMO FLAGS AUTO DIFF
[2016-12-07 11:12] LABS: BICARBONATE 21.6 MEQ/L (21.0-32.0); MAGNESIUM 1.5 MG/DL (1.5-2.5); POTASSIUM 3.5 MEQ/L (3.5-5.1)
--- NOTE | 2016-12-07 11:16 | RADRPT ---
EXAM DATE/TIME: 12/07/2016 10:02 [facility] COMPARISON: ABDOMEN KUB ONLY, December 04, 2016, 11:33. INDICATIONS : Evaluate for Ileus. MEDICAL HISTORY : Hypertension. Stroke. SURGICAL HISTORY : Hysterectomy. CABG. ENCOUNTER: Subsequent ACUITY: 2 weeks PAIN SCORE: Non-responsive. LOCATION: Abdomen. FINDINGS: Stable NGT in the stomach. Minimal colonic gas is noted. There is overall a paucity of bowel gas alth ough there is a loop of mildly dilated bowel noted in the left lower quadrant. No gross free air or p neumatosis. Remainder of the exam is unchanged. CONCLUSION: 1. Improved mild adynamic ileus bowel gas pattern. Sam Buckner MD on December 07, 2016 at 11:12 Board Certified Radiologist. This report was verified electronically.
--- NOTE | 2016-12-07 11:26 | HHI.PR ---
Subjective Subjective Notes Not tolerating enteral feeding. She vomited twice. She is stooling. Objective Vitals/I&O Vital Signs Date Time Temp Pulse Resp B/P (MAP) Pulse Ox O2 Delivery O2 Flow Rate FiO2 12/07/16 10:37 95 35 12/07/16 10:00 81 12/07/16 08:00 98.0 20 137/64 (88) Labs Laboratory Tests Test 12/07/16 04:00 12/07/16 10:22 Fibrinogen 611 White Blood Count 10.8 Red Blood Count 3.33 Hemoglobin 9.4 Hematocrit 27.9 Mean Corpuscular Volume 83.9 Mean Corpuscular Hemoglobin 28.3 Mean Corpuscular Hemoglobin Concent 33.7 Red Cell Distribution Width 16.6 Platelet Count 67 Mean Platelet Volume 11.0 CBC Comment AUTO DIFF Blood Urea Nitrogen 9 Creatinine 0.80 Random Glucose 111 Calcium Level 7.7 Phosphorus Level 2.5 Magnesium Level 1.5 Sodium Level 141 Potassium Level 3.5 Chloride Level 110 Carbon Dioxide Level 21.6 Anion Gap 9 Estimat Glomerular Filtration Rate 68 Date/Time Source Procedure Growth Status 12/03/16 15:25 Blood Peripheral Aerobic Blood Culture - Preliminary NO GROWTH IN 4 DAYS Resulted 12/03/16 15:25 Blood Peripheral Anaerobic Blood Culture - Preliminary NO GROWTH IN 4 DAYS Resulted 11/30/16 23:00 Stool Stool Stool Occult Blood (MAXINE) - Final HEMOCCULT POSITIVE Complete 12/07/16 10:41 Sputum Endotracheal Gram Stain Pending Received 12/07/16 10:41 Sputum Endotracheal Sputum Culture Pending Received Radiology Last Impressions Chest X-Ray 11/24/16 0000 Signed Impressions: Service Date/Time: Thursday, November 24, 2016 11:57 - CONCLUSION: 1. Interval placement of nasogastric catheter with tip beyond the GE junction omitted from the image. 2. Persistent diffuse coarse interstitial prominence likely reflecting interstitial edema/pneumonia superimposed on chronic interstitial changes. 3. Stable mild bibasilar airspace disease, likely atelectasis. Sam Buckner MD Abdomen/Pelvis CT 11/23/16 0000 Signed Impressions: Service Date/Time: Wednesday, November 23, 2016 21:46 - CONCLUSION: 1. 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 2. Mild head pancreatitis possible in the proper clinical setting. Patient has recently had ERCP and bile duct stone extraction. 3. Bibasilar pneumonia developing. Tiny pleural effusion on the right. 4. Chronic findings otherwise. Giovani Martinez MD Abdomen Ultrasound 11/23/16 0000 Signed Impressions: Service Date/Time: Wednesday, November 23, 2016 19:33 - CONCLUSION: 1. Somewhat limited study. Proximal superior mesenteric artery appears patent. 2. Mildly elevated flow velocities in the celiac and hepatic arteries of doubtful clinical significance. Giovani Martinez MD GI Procedure 11/21/16 0000 Signed Impressions: Service Date/Time: Monday, November 21, 2016 10:44 - CONCLUSION: ERCP as above. Reymundo Wilburn MD FACR Chest CT 11/20/16 1407 Signed Impressions: Service Date/Time: Sunday, November 20, 2016 15:13 - CONCLUSION: 1. Severe underlying emphysema. 2. Status post median sternotomy with postsurgical changes. Maikol Paredes MD Narrative Exam Ventilated Trach in place no bleeding Abd: soft, inc c/d/i, NGT in place, mod distention A/P Assessment and Plan 86 yo F POD 13 s/p ex lap right colectomy, cholecystectomy, for cecal volvulus and common duct stones, s/p trach yesterday NGT to suction. Can gradually restart over next couple of days and see how she does. Bryant Polanco MD Dec 07, 2016 11:26
[2016-12-07] MEDS: POTASSIUM CHLOR 40 MEQ PREMIX 100 ML IV PRN (11:44)
[2016-12-07] MEDS: FLUCONAZOLE 400 MG PREMIX BAG 200 ML IV SCH (11:46)
[2016-12-07 11:57] LABS: BANDS 6 % (0-6); CORRECTED NUCLEATED RBC 1 /100 WBC (0-0); NEUTROPHIL # MANUAL DIFF 9.7 TH/MM3 (1.8-7.7); POLYS (SEG NEUTROPHILS) 84 % (16-70); WBC DIFF SAMPLE 100
[2016-12-07 11:58] LABS: ACANTHOCYTES 1+ (NORMAL); DOHLE BODIES PRESENT (NONE SEEN); KERATOCYTES OCC (NORMAL); OVALOCYTES 1+ (NORMAL); PLATELET ESTIMATE SMEAR LOW (NORMAL); PLATELET MORPHOLOGY NORMAL (NORMAL); SCAN/DIFF FINAL DIFF MANUAL
--- NOTE | 2016-12-07 15:58 | HHI.PR ---
Addendum to Inpatient Note Additional Information Pt seen around 1600 Full note to follow afebrile not tolerating tube feedings + emesis x 2 Abd distended, tight BS hypoactive severe BLE edema Sharon Samayoa MD Dec 07, 2016 15:58
--- NOTE | 2016-12-07 16:50 | HHI.HCPN ---
Reason for visit a. To assist with evaluation and management of symptoms including: Dyspnea, encephalopathy, pain, N/V b. To assist medical decision maker(s) with: better understanding of current medical conditions; weighing benefits/burdens of medical treatment options; making medical treatment decisions. Subjective/Interval History Patient seen and assessed in room 527 status post tracheostomy on 12/06/2016. Patient remains sedated, weaning off propofol. Patient does not respond to verbal stimuli or deep tactile stimuli on exam, however nursing reports some spontaneous movement. WBC: 10.8, hemoglobin 9.4, hematocrit 27.9, platelets 67 HIT negative. Sodium: 141, potassium 3.5, chloride 110, carbon dioxide 21.6, glucose 111, calcium 7.7, phosphorus 2.5, magnesium 1.5 BUN: 9, creatinine 0.80, GFR 68 Afebrile. Patient remains on Zosyn, Fluconazole and Vancomycin. = 12/03/16: Sputum positive sign MRSA = 12/03/16: Blood cultures 2 with no growth. = 12/01/16 C. difficile negative Not tolerating tube feeds; NGT to LIWS. Emesis 2. Having frequent liquid stools. Abdominal is distended with hypoactive bowel sounds. KUB today showing improved mild adynamic ileus bowel gas pattern . Family/friend interactions Attempted to contact patient's spouse via telephone to provide an update on the patient's clinical condition and any answer any questions he may have. There was no answer. A message was left on his voicemail with palliative care contact information. Later in the day, Mr. Forde returned my phone call and we had a lengthy discussion regarding slight improvement in patient's mental status per nursing report as well as ongoing concerns ( i.e. platelets, holding tube feedings, etc.). Mr. Forde verbalized attitude for palliative care's ongoing support; he remains optimistic that she will pull-through and be able to return home in the future. . Advance Directives Living Will: Copy in medical record Health Care Surrogate: Copy in medical record Advance Directive Specifics Date completed: 04/26/2016 . Health Care Surrogate(s): Patient's and son are designated as health care surrogate decision makers. . Documented care wishes: A living will was completed on 04/26/2016 and is accessible and the patient's EMR. Patient states if at any time she should suffer from a terminal condition , persistent vegetative state or incurable affliction, and if her attending has determined that there can be no recovery from such condition and the application of life prolonging procedures would serve only to artificially prolong the dying process, the patient directs that such procedures be withheld are withdrawn, and that she be permitted to naturally with only the administration of medication and/or the performance of any medical procedure deemed necessary to provide her with comfort care order or alleviate pain. She states she desires that nutrition and hydration be withheld are withdrawn when application of such procedure would serve only to perform long artificially the process of dying. . Objective Vital Signs Date Time Temp Pulse Resp B/P (MAP) Pulse Ox O2 Delivery O2 Flow Rate FiO2 12/07/16 14:00 90 12/07/16 12:52 97 35 12/07/16 12:00 98.6 92 32 136/56 (82) 95 12/07/16 12:00 92 12/07/16 12:00 35 12/07/16 10:37 95 35 12/07/16 10:00 81 12/07/16 08:45 96 35 12/07/16 08:00 35 12/07/16 08:00 79 12/07/16 08:00 98.0 79 20 137/64 (88) 94 12/07/16 06:00 78 12/07/16 04:15 96 35 12/07/16 04:00 35 12/07/16 04:00 79 12/07/16 04:00 98.0 79 18 116/58 (77) 97 12/07/16 02:00 80 12/07/16 00:22 98 35 12/07/16 00:00 85 12/07/16 00:00 35 12/07/16 00:00 99.4 85 18 102/52 (69) 97 12/06/16 22:00 85 12/06/16 20:37 100 35 12/06/16 20:00 98.6 91 18 121/60 (80) 96 12/06/16 20:00 35 12/06/16 20:00 91 12/06/16 18:00 84 12/06/16 17:21 97 35 Intake & Output 12/07/16 12/07/16 07:00 19:00 Intake Total 220 ml 1384 ml Output Total 1060.0 ml 0 ml Balance -840.0 ml 1384 ml IV Total 200 ml 1384 ml Tube Feeding 20 ml Output Urine Total 1000 ml Tube Feeding Residual Discard 60.0 ml 0 ml # Bowel Movements 1 . Physical Exam CONSTITUTIONAL/GENERAL: This is an adequately nourished patient, elderly female patient currently sedated with propofol on mechanical ventilator status post tracheostomy TUBES/LINES/DRAINS: Sanchez catheter, NGT, right IJ central line, soft restraints , tracheostomy SKIN: No jaundice, rashes, or lesions. Ecchymoses on upper extremities. Bruising and edema noted on upper extremities bilaterally, weeping. HEAD: Atraumatic. Normocephalic. 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 No scleral icterus. No injection or drainage. Fundi not examined. ENT: Nose without bleeding or purulent drainage. NECK: Supple, trachea midline. No JVD CARDIOVASCULAR: Irregular. + Murmur RESPIRATORY/CHEST: Status post tracheostomy on mechanical ventilator No accessory muscles used GASTROINTESTINAL: Status post exploratory laparotomy with binder in place. GENITOURINARY: Without palpable bladder distension. Sanchez catheter in place. MUSCULOSKELETAL: Extremities without clubbing, cyanosis. + Peripheral edema. Significant edema with weeping and upper extremities bilaterally LYMPHATICS: No palpable cervical or supraclavicular adenopathy. NEUROLOGICAL: Sedated on propofol, attempting to wean. Patient did not respond to verbal or tactile stimuli on my examination. PSYCHIATRIC: Unable to assess secondary to patient's clinical condition . Diagnostic Tests Laboratory Laboratory Tests Test 12/05/16 06:15 12/05/16 06:41 12/05/16 08:05 12/05/16 23:15 White Blood Count 13.0 TH/MM3 (4.0-11.0) Red Blood Count 2.89 MIL/MM3 (4.00-5.30) Hemoglobin 8.1 GM/DL (11.6-15.3) Hematocrit 24.4 % (35.0-46.0) Mean Corpuscular Volume 84.4 FL (80.0-100.0) Mean Corpuscular Hemoglobin 28.1 PG (27.0-34.0) Mean Corpuscular Hemoglobin Concent 33.2 % (32.0-36.0) Red Cell Distribution Width 16.4 % (11.6-17.2) Platelet Count 83 TH/MM3 (150-450) Mean Platelet Volume 10.4 FL (7.0-11.0) Neutrophils (%) (Auto) 90.2 % (16.0-70.0) Lymphocytes (%) (Auto) 5.6 % (9.0-44.0) Monocytes (%) (Auto) 3.0 % (0.0-8.0) Eosinophils (%) (Auto) 0.9 % (0.0-4.0) Basophils (%) (Auto) 0.3 % (0.0-2.0) Neutrophils # (Auto) 11.7 TH/MM3 (1.8-7.7) Lymphocytes # (Auto) 0.7 TH/MM3 (1.0-4.8) Monocytes # (Auto) 0.4 TH/MM3 (0-0.9) Eosinophils # (Auto) 0.1 TH/MM3 (0-0.4) Basophils # (Auto) 0.0 TH/MM3 (0-0.2) CBC Comment AUTO DIFF Differential Comment AUTO DIFF CONFIRMED Dohle Bodies PRESENT (NONE SEEN) Platelet Estimate LOW (NORMAL) Platelet Morphology Comment ENLARGED (NORMAL) Acanthocytes 1+ (NORMAL) Keratocytes (NORMAL) Blood Urea Nitrogen 15 MG/DL (7-18) Creatinine 0.91 MG/DL (0.50-1.00) Random Glucose 129 MG/DL (74-106) Total Protein 5.1 GM/DL (6.4-8.2) Calcium Level 7.2 MG/DL (8.5-10.1) Sodium Level 144 MEQ/L (136-145) Potassium Level 3.0 MEQ/L (3.5-5.1) 3.8 MEQ/L (3.5-5.1) Chloride Level 114 MEQ/L (98-107) Carbon Dioxide Level 21.1 MEQ/L (21.0-32.0) Anion Gap 9 MEQ/L (5-15) Estimat Glomerular Filtration Rate 59 ML/MIN (>89) Protein Corrected Calcium 8.3 MG/DL (8.5-10.1) Blood Smear Pathologist Review Haptoglobin 138 MG/DL (30-200) Phosphorus Level 2.0 MG/DL (2.5-4.9) Magnesium Level 1.6 MG/DL (1.5-2.5) Lactate Dehydrogenase 239 U/L (84-246) Heparin-Induced Platelet Ab (Hali) NEGATIVE (NEGATIVE) HIPA Patient Optical Density 0.130 O.D. (0.000-0.300) Test 12/06/16 05:42 12/07/16 04:00 12/07/16 10:22 White Blood Count 10.0 TH/MM3 (4.0-11.0) 10.8 TH/MM3 (4.0-11.0) Red Blood Count 3.11 MIL/MM3 (4.00-5.30) 3.33 MIL/MM3 (4.00-5.30) Hemoglobin 8.9 GM/DL (11.6-15.3) 9.4 GM/DL (11.6-15.3) Hematocrit 26.4 % (35.0-46.0) 27.9 % (35.0-46.0) Mean Corpuscular Volume 84.9 FL (80.0-100.0) 83.9 FL (80.0-100.0) Mean Corpuscular Hemoglobin 28.5 PG (27.0-34.0) 28.3 PG (27.0-34.0) Mean Corpuscular Hemoglobin Concent 33.6 % (32.0-36.0) 33.7 % (32.0-36.0) Red Cell Distribution Width 16.6 % (11.6-17.2) 16.6 % (11.6-17.2) Platelet Count 68 TH/MM3 (150-450) 67 TH/MM3 (150-450) Mean Platelet Volume 10.4 FL (7.0-11.0) 11.0 FL (7.0-11.0) Neutrophils (%) (Auto) 88.0 % (16.0-70.0) Lymphocytes (%) (Auto) 7.7 % (9.0-44.0) Monocytes (%) (Auto) 2.7 % (0.0-8.0) Eosinophils (%) (Auto) 1.2 % (0.0-4.0) Basophils (%) (Auto) 0.4 % (0.0-2.0) Neutrophils # (Auto) 8.8 TH/MM3 (1.8-7.7) Lymphocytes # (Auto) 0.8 TH/MM3 (1.0-4.8) Monocytes # (Auto) 0.3 TH/MM3 (0-0.9) Eosinophils # (Auto) 0.1 TH/MM3 (0-0.4) Basophils # (Auto) 0.0 TH/MM3 (0-0.2) CBC Comment AUTO DIFF AUTO DIFF Differential Comment AUTO DIFF CONFIRMED FINAL DIFF MANUAL Dohle Bodies PRESENT (NONE SEEN) PRESENT (NONE SEEN) Platelet Estimate LOW (NORMAL) LOW (NORMAL) Platelet Morphology Comment NORMAL (NORMAL) NORMAL (NORMAL) Acanthocytes 1+ (NORMAL) 1+ (NORMAL) Keratocytes OCC (NORMAL) OCC (NORMAL) Blood Urea Nitrogen 11 MG/DL (7-18) 9 MG/DL (7-18) Creatinine 0.89 MG/DL (0.50-1.00) 0.80 MG/DL (0.50-1.00) Random Glucose 156 MG/DL (74-106) 111 MG/DL (74-106) Total Protein 4.9 GM/DL (6.4-8.2) Albumin 1.2 GM/DL (3.4-5.0) Calcium Level 7.2 MG/DL (8.5-10.1) 7.7 MG/DL (8.5-10.1) Phosphorus Level 2.0 MG/DL (2.5-4.9) 2.5 MG/DL (2.5-4.9) Magnesium Level 1.5 MG/DL (1.5-2.5) 1.5 MG/DL (1.5-2.5) Alkaline Phosphatase 90 U/L (45-117) Aspartate Amino Transf (AST/SGOT) 23 U/L (15-37) Alanine Aminotransferase (ALT/SGPT) 12 U/L (10-53) Total Bilirubin 0.7 MG/DL (0.2-1.0) Sodium Level 141 MEQ/L (136-145) 141 MEQ/L (136-145) Potassium Level 3.7 MEQ/L (3.5-5.1) 3.5 MEQ/L (3.5-5.1) Chloride Level 111 MEQ/L (98-107) 110 MEQ/L (98-107) Carbon Dioxide Level 20.6 MEQ/L (21.0-32.0) 21.6 MEQ/L (21.0-32.0) Anion Gap 9 MEQ/L (5-15) 9 MEQ/L (5-15) Estimat Glomerular Filtration Rate 60 ML/MIN (>89) 68 ML/MIN (>89) Protein Corrected Calcium 8.4 MG/DL (8.5-10.1) Ammonia 42 MCMOL/L (11-32) Fibrinogen 611 mg/dL (227-377) Differential Total Cells Counted 100 Neutrophils % (Manual) 84 % (16-70) Band Neutrophils % 6 % (0-6) Lymphocytes % 7 % (9-44) Monocytes % 3 % (0-8) Neutrophils # (Manual) 9.7 TH/MM3 (1.8-7.7) Nucleated Red Blood Cells 1 /100 WBC (0-0) Ovalocytes 1+ (NORMAL) . Result Diagram: 12/07/16 1022 12/07/16 1022 Microbiology Microbiology Date/Time Source Procedure Growth Status 12/07/16 10:41 Sputum Endotracheal Gram Stain - Final Resulted 12/07/16 10:41 Sputum Endotracheal Sputum Culture Pending Resulted Procedures 11/21/16: ERCP 11/24/16: Right IJ central line placement 11/24/16: Intubation 11/24/16: Colonoscopy/exploratory laparotomy 11/28/16: Transfusion 11/30/16: Extubation and reintubation 12/01/16: Transfusion . Assessment and Plan Disease Oriented Problem List: (1) Acute metabolic encephalopathy (2) Acute respiratory failure (3) COPD (chronic obstructive pulmonary disease) (4) Systolic heart failure (5) Cecal volvulus (6) GERD (gastroesophageal reflux disease) (7) Transaminitis (8) Atrial fibrillation with rapid ventricular response (9) Leukocytosis (10) JOSUE (acute kidney injury) (11) Sepsis Symptom Scale: (1) Dyspnea (2) Encephalopathy (3) Pain (4) Nausea and vomiting Pertinent Non-Medical Issues Psychosocial: Patient is originally from [place], [place]. She was adopted when she was 10 days old. to for approximately 57 years. Patient's states they have 6 children together. Four children are "HIS"; one child is "HERS' and two children are "THEIRS." Three of the children live in [place] , and the other children in [place]. Daughter, Chyna lives in [place]. The patient lives in [place] in a elder mobile home community with her . Her was working at [employer] until recently, and the patient was working at the [employer] in [place] until approximately 7 years ago. 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 Spiritual: Orthodoxy neyda; declines php programmer visits. Legal: Patient's and son are designated as health care surrogate decision makers. Ethical issues impacting care: No known ethical issues impacting care at this time. . Important Contacts * Seun Forde, : [phone] * Chyna Alatorre, daughter: [phone] . Prognosis Patient is a critically ill, 86-year-old female status post exploratory laparotomy on 11/24/16 secondary to cecal volvulus with right colectomy and cholecystectomy. Patient's hospital course has been complicated by severe sepsis and multiorgan dysfunction. She has required Levophed and Cardizem drip for rate control. She has acute respiratory failure and is ventilator dependent ; acute toxic metabolic encephalopathy. She tolerated extubation x 1.5 hours on 11/30/[address] of the chest revealed severe emphysema with bilateral upper and lower lobe infiltrates likely secondary to aspiration- patient will likely need a tracheostomy. If the patient survives this hospitalization, she will likely experience ongoing setbacks and complications making her overall prognosis poor. . Code Status: Full Code Plan * FULL CODE * Decision-making: Patient's and son (both name Seun Forde) are designated as the health care surrogate decision makers. * A living will was completed on 04/26/2016 and is accessible and the patient's EMR. Patient states if at any time she should suffer from a terminal condition , persistent vegetative state or incurable affliction, and if her attending has determined that there can be no recovery from such condition and the application of life prolonging procedures would serve only to artificially prolong the dying process, the patient directs that such procedures be withheld are withdrawn, and that she be permitted to naturally with only the administration of medication and/or the performance of any medical procedure deemed necessary to provide her with comfort care order or alleviate pain. She states she desires that nutrition and hydration be withheld are withdrawn when application of such procedure would serve only to perform long artificially the process of dying. * AGGRESSIVE GOALS * Attempted to contact patient's spouse via telephone to provide an update on the patient's clinical condition and any answer any questions he may have. There was no answer. A message was left on his voicemail with palliative care contact information. Later in the day, Mr. Forde returned my phone call and we had a lengthy discussion regarding slight improvement in patient's mental status per nursing report as well as ongoing concerns ( i.e. platelets, holding tube feedings, etc.). Mr. Forde verbalized attitude for palliative care's ongoing support; he remains optimistic that his will pull through and return home at some time. * Discussed with patient's nurse, Courtney * Symptom management - N/V: Not tolerating tube feeds; NGT to LIWS. Emesis 2. Having frequent liquid stools. Abdominal is distended with hypoactive bowel sounds. KUB today showing improved mild adynamic ileus bowel gas pattern. Repeat KUB as indicated, continue to monitor labs. No further recommendations at this time. * Symptom management-pain: Status post exploratory laparotomy on 11/24/16. Showing no s/s non-verbal pain on exam. Additional potential factors contributing to pain include invasive lines, ETT, edema, infection, inability, bedbound status etc. chart. Patient currently sedated on propofol, titrating downward. Continue to monitor * Symptom management - encephalopathy: Neurology was consulted secondary to acute encephalopathy, possibly related to infection. 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 No recommendations at this time. Attempting to wean sedation. Patient does not respond to verbal or tactile stimuli on my exam, however patient having increased spontaneous movement per nursing report. * Symptom management - dyspnea: CT chest showing severe underlying emphysema; bilateral upper and lower lobe infiltrates likely secondary to aspiration. Tolerated extubation 1.5 hours a 11/30/16. Status post tracheostomy on 2016. * Palliative care will continue to follow this patient to establish trust, assist with symptom management and clarification of medical treatment goals. . Attestation To help prompt me to consider important information that might be impacting today's encounter and assessment, information from prior notes written by myself or my colleagues may have been "brought forward" into today's note. My signature on this note, however, is an attestation that I personally performed the exam, history, and/or decision-making noted today, and, unless otherwise indicated, the interactions with patient, family, and staff as well as the review of records all occurred today. I also attest that the listed assessment and stated plan reflect my best clinical judgment today based on the combination of historical information, prior notes, and today's exam/ interactions. When time spent is documented, it refers only to time spent today by the signer, or if indicated, combined time spent today by collaborating physician/nurse practitioner. . Karina Dorman Dec 07, 2016 4:50 pm
--- NOTE | 2016-12-07 19:44 | HHI.IDPN ---
Subjective Subjective Remarks delayed entry Pt seen around 1600 dw RN afebrile not tolerating tube feedings + emesis x 2 + ETT secretions c.diff negative unresponsive Antibiotics zosyn zyvox Lines Line sites with no e.o infection Past Medical History reviewed Allergies: Coded Allergies: No Known Allergies (Unverified , 11/24/16) Objective . Vital Signs Date Time Temp Pulse Resp B/P (MAP) Pulse Ox O2 Delivery O2 Flow Rate FiO2 12/07/16 18:00 93 12/07/16 16:03 97 35 12/07/16 16:00 88 12/07/16 16:00 35 12/07/16 16:00 98.4 88 20 131/61 (84) 97 12/07/16 14:00 90 12/07/16 12:52 97 35 12/07/16 12:00 98.6 92 32 136/56 (82) 95 12/07/16 12:00 92 12/07/16 12:00 35 12/07/16 10:37 95 35 12/07/16 10:00 81 12/07/16 08:45 96 35 12/07/16 08:00 35 12/07/16 08:00 79 12/07/16 08:00 98.0 79 20 137/64 (88) 94 12/07/16 06:00 78 12/07/16 04:15 96 35 12/07/16 04:00 35 12/07/16 04:00 79 12/07/16 04:00 98.0 79 18 116/58 (77) 97 12/07/16 02:00 80 12/07/16 00:22 98 35 12/07/16 00:00 85 12/07/16 00:00 35 12/07/16 00:00 99.4 85 18 102/52 (69) 97 12/06/16 22:00 85 12/06/16 20:37 100 35 12/06/16 20:00 98.6 91 18 121/60 (80) 96 12/06/16 20:00 35 12/06/16 20:00 91 12/07/16 12/07/16 12/08/16 15:00 23:00 07:00 Intake Total 1234 ml 360 ml Output Total 0 ml 950 ml Balance 1234 ml -590 ml IV Total 1234 ml 150 ml Tube Feeding 10 ml Other 200 ml Output Urine Total 750 ml Gastric Drainage Total 200 ml Tube Feeding Residual Discard 0 ml # Bowel Movements 6 . Laboratory Tests Test 12/06/16 05:42 12/07/16 10:22 White Blood Count 10.0 TH/MM3 10.8 TH/MM3 Red Blood Count 3.11 MIL/MM3 3.33 MIL/MM3 Hemoglobin 8.9 GM/DL 9.4 GM/DL Hematocrit 26.4 % 27.9 % Mean Corpuscular Volume 84.9 FL 83.9 FL Mean Corpuscular Hemoglobin 28.5 PG 28.3 PG Mean Corpuscular Hemoglobin Concent 33.6 % 33.7 % Red Cell Distribution Width 16.6 % 16.6 % Platelet Count 68 TH/MM3 67 TH/MM3 Mean Platelet Volume 10.4 FL 11.0 FL Neutrophils (%) (Auto) 88.0 % Lymphocytes (%) (Auto) 7.7 % Monocytes (%) (Auto) 2.7 % Eosinophils (%) (Auto) 1.2 % Basophils (%) (Auto) 0.4 % Neutrophils # (Auto) 8.8 TH/MM3 Lymphocytes # (Auto) 0.8 TH/MM3 Monocytes # (Auto) 0.3 TH/MM3 Eosinophils # (Auto) 0.1 TH/MM3 Basophils # (Auto) 0.0 TH/MM3 CBC Comment AUTO DIFF AUTO DIFF Differential Comment AUTO DIFF CONFIRMED FINAL DIFF MANUAL Dohle Bodies PRESENT PRESENT Platelet Estimate LOW LOW Platelet Morphology Comment NORMAL NORMAL Acanthocytes 1+ 1+ Keratocytes OCC OCC Differential Total Cells Counted 100 Neutrophils % (Manual) 84 % Band Neutrophils % 6 % Lymphocytes % 7 % Monocytes % 3 % Neutrophils # (Manual) 9.7 TH/MM3 Nucleated Red Blood Cells 1 /100 WBC Ovalocytes 1+ Laboratory Tests Test 12/05/16 23:15 12/06/16 05:42 12/07/16 10:22 Potassium Level 3.8 MEQ/L 3.7 MEQ/L 3.5 MEQ/L Blood Urea Nitrogen 11 MG/DL 9 MG/DL Creatinine 0.89 MG/DL 0.80 MG/DL Random Glucose 156 MG/DL 111 MG/DL Total Protein 4.9 GM/DL Albumin 1.2 GM/DL Calcium Level 7.2 MG/DL 7.7 MG/DL Phosphorus Level 2.0 MG/DL 2.5 MG/DL Magnesium Level 1.5 MG/DL 1.5 MG/DL Alkaline Phosphatase 90 U/L Aspartate Amino Transf (AST/SGOT) 23 U/L Alanine Aminotransferase (ALT/SGPT) 12 U/L Total Bilirubin 0.7 MG/DL Sodium Level 141 MEQ/L 141 MEQ/L Chloride Level 111 MEQ/L 110 MEQ/L Carbon Dioxide Level 20.6 MEQ/L 21.6 MEQ/L Anion Gap 9 MEQ/L 9 MEQ/L Estimat Glomerular Filtration Rate 60 ML/MIN 68 ML/MIN Protein Corrected Calcium 8.4 MG/DL Ammonia 42 MCMOL/L Microbiology Date/Time Source Procedure Growth Status 12/07/16 10:41 Sputum Endotracheal Gram Stain - Final Resulted 12/07/16 10:41 Sputum Endotracheal Sputum Culture Pending Resulted Imaging Last Impressions Abdomen X-Ray 12/07/16 0000 Signed Impressions: Service Date/Time: Wednesday, December 07, 2016 10:02 - CONCLUSION: 1. Improved mild adynamic ileus bowel gas pattern. Sam Buckner MD Chest X-Ray 12/06/16 0600 Signed Impressions: Service Date/Time: November 05:19 - CONCLUSION: 1. Slight improvement in basilar airspace disease since December 03. Support apparatus unchanged. Romairo Kauffman MD Chest CT 12/01/16 0000 Signed Impressions: Service Date/Time: Thursday, December 01, 2016 08:13 - CONCLUSION: 1. Severe emphysema with bilateral airspace consolidation in a patchy distribution involving the upper and lower lobes but most severe in the left lower lobe. There is also a trace left pleural effusion. Imaging findings are nonspecific but infection or aspiration should be considerations. 2. Coronary artery calcification. Giovani Lopez MD Abdomen/Pelvis CT 12/01/16 0000 Signed Impressions: Service Date/Time: Thursday, December 01, 2016 08:13 - CONCLUSION: 1. No acute finding is identified to explain the blood in stool. There are postsurgical findings suggesting prior right hemicolectomy. Colon contains a fluid and air and there is sigmoid diverticulosis. 2. Small volume of free fluid in the abdomen and pelvis. Also, there is mild diffuse subcutaneous edema. Giovani Lopez MD Head CT 11/27/16 0000 Signed Impressions: Service Date/Time: Sunday, November 27, 2016 14:47 - CONCLUSION: 1. Questionable edema or subacute infarct in the left parietal deep white matter. This would be better evaluated with MRI. No intracranial hemorrhage or significant mass effect. Romario Kauffman MD Brain MRI 11/27/16 0000 Signed Impressions: Service Date/Time: Sunday, November 27, 2016 18:10 - CONCLUSION: 1. Moderate periventricular and subcortical white matter small vessel ischemic changes bilaterally. 2. 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 3. No acute infarct, acute hemorrhage, mass effect or extra-axial fluid collection. 4. Fluid level within sphenoid sinuses. 5. Fluid within the mastoid air cells bilaterally. Hasmukh Oakes MD Abdomen Ultrasound 11/23/16 0000 Signed Impressions: Service Date/Time: Wednesday, November 23, 2016 19:33 - CONCLUSION: 1. Somewhat limited study. Proximal superior mesenteric artery appears patent. 2. Mildly elevated flow velocities in the celiac and hepatic arteries of doubtful clinical significance. Giovani Martinez MD GI Procedure 11/21/16 0000 Signed Impressions: Service Date/Time: Monday, November 21, 2016 10:44 - CONCLUSION: ERCP as above. Reymundo Wilburn MD FACR Physical Exam CONSTITUTIONAL/GENERAL: This is an adequately nourished patient, in no apparent distress. sedated int'd on vent TUBES/LINES/DRAINS: SKIN: No jaundice, rashes, or lesions. Skin temperature appropriate. Not diaphoretic. EYES: OD - prosthesis Fundi not examined. CARDIOVASCULAR: Regular rate and rhythm + 2/6 systolic murmur, no gallops, or rubs. No JVD. Peripheral pulses symmetric. Well perfused perifery RESPIRATORY/CHEST: Symmetric, unlabored respirations. Rhonchi to auscultation. Breath sounds equal bilaterally. No wheezes, rales, or rhonchi. GASTROINTESTINAL:Abd distended, tight; no reaction to palpation incision is healing, clean, closed BS hypoactive dignishield in place with liquid dark stool GENITOURINARY: Without palpable bladder distension. Sanchez catheter in place with small amount of dark yellow urine UOP improved MUSCULOSKELETAL: Extremities without clubbing, , Increasing 3 + tight edema. improved cyanosis feet, fingers NEUROLOGICAL: sedated unresponsive PSYCHIATRIC: unable to assess Assessment & Plan Remarks Volvulus sp colon resection and cholecystectomy path benign:cecum volvulus and chronic calculous cholecstitis Sepsis from intraabdominal source (leukocytosis, leukemoid reaction, hypoxia, JOSUE) leukocytosis, leukemoid reaction: resolviving ARF: improving New problem : aspiration, ileus Recurrent VDRF - sp reintubation Melena: CT unremarkable Diarrhea, C.diff negative Thrombocytopenia : HIT negative; zyvox just started, unlikely to contribtute at this point, though other abx (zosyn, vanco) also can be implicated in thrombocytopenia fibrinogen nl Not improving clincally Now main problem is ileus, not tolerating TF Rec: fu WBC monitor plts cont zosyn, fluconazol cont zyvox iv , can switch to oral if tolerates tube feeds consider CT if not improving clinically Sharon Guerra RN, MD Dec 07, 2016 19:44
[2016-12-07] MEDS: ATORVASTATIN 80 MG TAB PO SCH (20:18)
[2016-12-08] VITALS (16 sets, daily range): BP systolic 110–134; BP diastolic 53–60; PULSE 77–109; RESP 18–20; TEMP 89.9–101.4; O2SAT 97–100
[2016-12-08] MEDS: PIPERACIL-TAZO 2.25 GM PREMIX 50 ML IV SCH ×4 (02:51→20:52)
[2016-12-08] MEDS: LINEZOLID 600 MG PREMIX 300 ML IV SCH ×2 (02:51→14:38)
[2016-12-08] MEDS: PROPOFOL 1000 MG/100 ML INJ 100 ML IV PRN ×3 (02:52→21:15)
[2016-12-08] MEDS: RESP: ALBUTEROL 2.5 MG/IPRATROPIUM 0.5 MG NEB (SCH) NEB ×4 (04:09→21:19)
[2016-12-08 04:14] LABS: HEMATOCRIT 26.4 % (35.0-46.0); HEMO FLAGS AUTO DIFF; MEAN CELL VOLUME 83.6 FL (80.0-100.0); MEAN CORPUSCULAR HEMOGLOBIN 27.7 PG (27.0-34.0); MEAN CORPUSCULAR HGB CONC 33.1 % (32.0-36.0); PLATELET COUNT 61 TH/MM3 (150-450); RED BLOOD COUNT 3.16 MIL/MM3 (4.00-5.30); WHITE BLOOD COUNT 11.8 TH/MM3 (4.0-11.0)
[2016-12-08] MEDS: INSULIN NovoLIN REGULAR SUPPLEMENTAL SCALE SQ SCH ×6 (04:15→23:46)
[2016-12-08 04:36] LABS: BICARBONATE 21.3 MEQ/L (21.0-32.0); POTASSIUM 3.3 MEQ/L (3.5-5.1)
[2016-12-08 05:15] LABS: EOSINOPHILS 1 % (0-4); NEUTROPHIL # MANUAL DIFF 11.4 TH/MM3 (1.8-7.7); PLASMA CELLS 1 % (0-0); POLYS (SEG NEUTROPHILS) 97 % (16-70); WBC DIFF SAMPLE 100
[2016-12-08 05:22] LABS: ACANTHOCYTES 1+ (NORMAL); KERATOCYTES 1+ (NORMAL); TEARDROP RBCS 1+ (NORMAL)
[2016-12-08 05:23] LABS: PLATELET ESTIMATE SMEAR LOW (NORMAL); PLATELET MORPHOLOGY NORMAL (NORMAL); SCAN/DIFF FINAL DIFF MANUAL
[2016-12-08] MEDS: FREE WATER G-TUBE SCH ×3 (06:00→20:53)
[2016-12-08] MEDS: METOCLOPRAMIDE HCL 10 MG/2 ML VIAL IV PUSH SCH ×3 (06:10→20:54)
[2016-12-08] MEDS: DILTIAZEM HCL 30 MG TAB PO SCH ×4 (06:10→23:46)
[2016-12-08] MEDS: ARTIFICIAL TEARS OPTH SOLN 15 ML BTL LEFT EYE SCH ×3 (06:11→20:55)
[2016-12-08] MEDS: POTASSIUM CHLOR 20 MEQ PREMIX 100 ML IV PRN ×2 (08:21→10:17)
[2016-12-08] MEDS: LACTULOSE SYRUP 20 GM/30 ML CUP NG SCH ×2 (08:22→20:53)
[2016-12-08] MEDS: PANTOPRAZOLE SODIUM 40 MG VIAL IV PUSH SCH ×2 (08:22→20:52)
[2016-12-08] MEDS: POTASSIUM CHLORIDE 25 MEQ EFFERVESCENT TAB NG SCH (08:22)
[2016-12-08] MEDS: SODIUM CHLORIDE 0.9% FLUSH 10 ML FLUSH IV FLUSH SCH ×2 (08:22→20:52)
[2016-12-08] MEDS: SODIUM BICARBONATE 325 MG TAB NG SCH ×3 (08:23→17:04)
[2016-12-08] MEDS: URSODIOL 300 MG CAP PO SCH ×2 (08:23→21:00)
--- NOTE | 2016-12-08 08:54 | HHI.CCPN ---
Subjective Remarks/Hospital Course 86 y/o woman developed worsening SOB this afternoon associated with marked leukocytosis. Recent biliary instrumentation for obstruction 48 hours ago and probable sepsis. On appropriate antibiotics. Requiring NRBM now for oxygenation to 97%. Visibly labored breathing. CXR with interstitial edema. EF 35% 2014. Move to ICU. 11/24: Patient s/p colonoscopy this morning which showed mod. diverticulosis in sigmoid colon and hemorrhoids. Remains on NRB with good sats. Afebrile. Cr increased 1.51 from 1.08. 11/25 Patient s/p Ex lap, right colectomy and cholecystectomy. She kept intubated postop went into Afib with RVR overnight and placed on Cardizem drip 10mg/hr. 11/26 Patient is sedated with Diprivan, fentanyl and intubated. Afebrile. On Cardizem drip 5mg/hr. renal function worse with Cr: 2.01 from 1.89, UOP: 1L in 24 hrs 11/27 Patient remains sedated and intubated. Off Cardizem drip. Renal function is improving with Cr: 1.67 from 2.01. Afebrile. 11/28 remains intubated sedated. Heart rate controlled. Creat 1.26. Hb 6.5. Status post 2 units PRBC today. WBC count decreased from 40,000-26,000. Creat improving 1.26 11/29: Patient A. fib with RVR currently on diltiazem drip at 15 mg an hour for rate control. Hemodynamically stable. 11/30: Heart rate better controlled today. Diltiazem drip discontinued overnight. Heart rate currently in the 70s. Tolerated PSV trials yesterday. We'll attempt extubation today if tolerates. No bowel movement. Tolerating tube feeds at 30 cc an hour 12/01: Tmax 101.7. Failed extubation trial after 1 hour yesterday. Persistently hypotensive post intubation. Transfuse 1 unit hemoglobin yesterday for melena per RN. Hemoglobin went from 7.5-11.3. CVP is 12. Enoxaparin will be held. CT thorax, abdomen and pelvis performed now. Lactate pending. Serial hemoglobins. GI consult for EGD 12/03: Patient remains sedated with Diprivan and Fentanyl and intubated. On Levophed 4 mics, Cardizem drip 2.5mg/hr. For EGD today 12/04 Patient is sedated and intubated. s/p EGD yesterday showed gastritis, no active bleeding. Remains on Cardizem 2.5mg/hr and Levophed 3 mics. Afebrile. Subjective 12/05: Afebrile. Hemoglobin stable. Off norepinephrine and diltiazem drips. Creatinine stabilizing. 12/06: No acute events reported overnight. Plan for tracheostomy at 10 AM today. Platelet count is 68,000, discussed this with Dr. Polanco. HIT screen ordered yesterday pending 12/07 Patient s/p trach yesterday sedated with Diprivan. Afebrile. 12/08 Patient is on ventilator via trach, T: 100.8 at 4am. Objective Vital Signs Date Time Temp Pulse Resp B/P (MAP) Pulse Ox O2 Delivery O2 Flow Rate FiO2 12/08/16 08:00 35 12/08/16 06:00 91 12/08/16 04:12 98 12/08/16 04:00 100.8 18 134/60 (84) Intake and Output 12/08/16 12/08/16 12/09/16 08:00 16:00 00:00 Intake Total 143 ml Output Total 550 ml Balance -407 ml Result Diagram: 12/08/16 0324 12/08/16 0324 Other Results Laboratory Tests Test 12/07/16 10:22 12/08/16 03:24 White Blood Count 10.8 TH/MM3 11.8 TH/MM3 Red Blood Count 3.33 MIL/MM3 3.16 MIL/MM3 Hemoglobin 9.4 GM/DL 8.8 GM/DL Hematocrit 27.9 % 26.4 % Mean Corpuscular Volume 83.9 FL 83.6 FL Mean Corpuscular Hemoglobin 28.3 PG 27.7 PG Mean Corpuscular Hemoglobin Concent 33.7 % 33.1 % Red Cell Distribution Width 16.6 % 17.0 % Platelet Count 67 TH/MM3 61 TH/MM3 Mean Platelet Volume 11.0 FL 10.7 FL CBC Comment AUTO DIFF AUTO DIFF Differential Total Cells Counted 100 100 Neutrophils % (Manual) 84 % 97 % Band Neutrophils % 6 % Lymphocytes % 7 % 1 % Monocytes % 3 % Neutrophils # (Manual) 9.7 TH/MM3 11.4 TH/MM3 Nucleated Red Blood Cells 1 /100 WBC Differential Comment FINAL DIFF MANUAL FINAL DIFF MANUAL Dohle Bodies PRESENT Platelet Estimate LOW LOW Platelet Morphology Comment NORMAL NORMAL Ovalocytes 1+ Acanthocytes 1+ 1+ Keratocytes OCC 1+ Blood Urea Nitrogen 9 MG/DL 7 MG/DL Creatinine 0.80 MG/DL 0.76 MG/DL Random Glucose 111 MG/DL 76 MG/DL Calcium Level 7.7 MG/DL 7.8 MG/DL Phosphorus Level 2.5 MG/DL Magnesium Level 1.5 MG/DL Sodium Level 141 MEQ/L 141 MEQ/L Potassium Level 3.5 MEQ/L 3.3 MEQ/L Chloride Level 110 MEQ/L 111 MEQ/L Carbon Dioxide Level 21.6 MEQ/L 21.3 MEQ/L Anion Gap 9 MEQ/L 9 MEQ/L Estimat Glomerular Filtration Rate 68 ML/MIN 72 ML/MIN Eosinophils % 1 % Plasma Cells 1 % Tear Drop Cells 1+ Imaging Last Impressions Abdomen X-Ray 12/07/16 0000 Signed Impressions: Service Date/Time: Wednesday, December 07, 2016 10:02 - CONCLUSION: 1. Improved mild adynamic ileus bowel gas pattern. Sam Buckner MD Chest X-Ray 12/06/16 0600 Signed Impressions: Service Date/Time: November 05:19 - CONCLUSION: 1. Slight improvement in basilar airspace disease since December 03. Support apparatus unchanged. Romario Kauffman MD Chest CT 12/01/16 0000 Signed Impressions: Service Date/Time: Thursday, December 01, 2016 08:13 - CONCLUSION: 1. Severe emphysema with bilateral airspace consolidation in a patchy distribution involving the upper and lower lobes but most severe in the left lower lobe. There is also a trace left pleural effusion. Imaging findings are nonspecific but infection or aspiration should be considerations. 2. Coronary artery calcification. Giovani Lopez MD Abdomen/Pelvis CT 12/01/16 0000 Signed Impressions: Service Date/Time: Thursday, December 01, 2016 08:13 - CONCLUSION: 1. No acute finding is identified to explain the blood in stool. There are postsurgical findings suggesting prior right hemicolectomy. Colon contains a fluid and air and there is sigmoid diverticulosis. 2. Small volume of free fluid in the abdomen and pelvis. Also, there is mild diffuse subcutaneous edema. Giovani Lopez MD Head CT 11/27/16 0000 Signed Impressions: Service Date/Time: Sunday, November 27, 2016 14:47 - CONCLUSION: 1. Questionable edema or subacute infarct in the left parietal deep white matter. This would be better evaluated with MRI. No intracranial hemorrhage or significant mass effect. Romario Kauffman MD Brain MRI 11/27/16 0000 Signed Impressions: Service Date/Time: Sunday, November 27, 2016 18:10 - CONCLUSION: 1. Moderate periventricular and subcortical white matter small vessel ischemic changes bilaterally. 2. 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 3. No acute infarct, acute hemorrhage, mass effect or extra-axial fluid collection. 4. Fluid level within sphenoid sinuses. 5. Fluid within the mastoid air cells bilaterally. Hasmukh Oakes MD Abdomen Ultrasound 11/23/16 0000 Signed Impressions: Service Date/Time: Wednesday, November 23, 2016 19:33 - CONCLUSION: 1. Somewhat limited study. Proximal superior mesenteric artery appears patent. 2. Mildly elevated flow velocities in the celiac and hepatic arteries of doubtful clinical significance. Giovani Martinez MD GI Procedure 11/21/16 0000 Signed Impressions: Service Date/Time: Monday, November 21, 2016 10:44 - CONCLUSION: ERCP as above. Reymundo Wilburn MD FACR Objective Remarks GENERAL: 86 yo female, on ventilator via trach SKIN: Warm and dry. No rash HEAD: Normocephalic. EYES: No scleral icterus. No injection or drainage. 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 NECK: Supple, trachea midline. No JVD or lymphadenopathy. Trach in place CARDIOVASCULAR: RRR. S1, S2 no S4. 2/6 systolic murmur left lower sternal border/right upper sternal border RESPIRATORY: Breath sounds equal bilaterally. No accessory muscle use. GASTROINTESTINAL: Abdomen soft, tenderness on palpation. MUSCULOSKELETAL: Trace peripheral edema Neuro: Currently on propofol for sedation. Withdraws all 4 extremities to noxious stimulation. Positive gag. 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 Date of Insertion: Nov 24, 2016 Line: Central Venous Catheter Side: Right Location: Internal, Jugular A/P Assessment and Plan Neuro/Psych: History of chronic bilateral basal ganglia CVA Acute toxic metabolic encephalopathy Prosthetic left eye Currently on propofol as needed infusion for sedation/analgesia while intubated Goal of RASS -2 Daily sedation vacation. MRI brain 11/27 showed moderate small vessel disease, old bilateral basal ganglia CVA however no acute findings. Evaluated by Dr. Roque - neurology Continue amitriptyline 10 mg at night Acetaminophen 650 mg by tube every 6 hours. Fever Pulm: Acute hypoxemic respiratory failure- Extubated and reintubated on 11/30 History of COPD ACV 18/650/5/35 Ventilator bundle. s/p trach 12/06 Albuterol/ipratropium aerosols every 6 hours with albuterol aerosols every 2 hours as needed for dyspnea Continue with vent support and maintain sat >92%. SBT daily as adelina. Tolerated extubation 1.5 hours a 11/30. CT chest 11/20: Severe underlying emphysema. Status post median sternotomy with postsurgical changes. CT thorax 11/30 revealed severe emphysema. Bilateral upper and lower lobe infiltrates/glass ground likely aspiration. CV: Systolic heart failure - likely chronic ejection fraction 40% Severe sepsis Atrial Fibrillation w/ RVR - normal sinus rhythm History of hypertension Severe pulmonary hypertension likely group 3 secondary to COPD PAD history of bilateral CEA Currently on diltiazem 30 mg by mouth every 6 hours. Echo from 11/26 EF 40%, mild MR. Moderate AR/TR. Severe pulmonary HTN (PAP 70mmHg) ASA 81 mg daily held in light of GI bleeding Continue Atorvastatin 80 mg daily RENAL//FEN: Acute kidney injury resolved Monitor renal function, I/O's, avoid nephrotoxins, Will need K replacement today Nephrology is following- Dr. Ferrari Free water 200ml Q8, monitor sodium level GI: Cecal Volvulus s/p Exp lap, right colectomy and cholecystectomy 11/24 S/P biliary manipulation ERCP for obstructed duct with stones and sludge 11/21. Gastroesophageal reflux disease Transaminitis Hyperammonia Constipation Resume TF- trickle feeds- Glucerna 1.5@ 10 ml/hr with goal rate 45 cc KUB abdomen 12/07: Improved mild adynamic ileus bowel gas pattern. KUB 12/04 revealed mild ileus. 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 Mild head pancreatitis possible in the proper clinical setting. Patient has recently had ERCP and bile duct stone extraction. Bibasilar pneumonia developing. Tiny pleural effusion on the right US abdomen: Proximal superior mesenteric artery appears patent. Currently on lactulose 30 cc twice a day. Ammonia level 42 on 12/06 On ursodiol 300 mg by mouth twice daily. Resume when clinically indicated On metoclopramide per Dr. Polanco for bowel prokinetic medication ID: MRSA pneumonia Continue with abx per ID (piperacillin/tazobactam/fluconazole/Zyvox) Monitor for signs of infections ( Fever, WBC) Follow up on sputum 12/07 Pertinent cultures BC 11/24: NGTD . Blood cultures 11/29 -no growth C. difficile negative 12/01 12/03 - blood cultures 2 - no growth 12/03 - sputum - MRSA Heme: Leukocytosis..trending down Normocytic anemia Thrombocytopenia Monitor CBC Status post 2 units PRBCs 11/28. 1 unit PRBCs 12/01 Hemoccult stool 11/30 positive HIT negative Endo: SSI with accuchecks with Novulin R every 4 hours GI prophylaxis- Pantoprazole 40mg IV twice a day DVT prophylaxis- Enoxaparin 30mg daily held in light of GI bleed, thrombocytopenia Lines: Right IJ placed in OR 11/24, d/c central line and place peripheral IV's Level 3 Marian Rodríguez MD Dec 08, 2016 08:54
[2016-12-08] MEDS ORDERED: PHARMACY ORDERED LAB ONE (09:45)
[2016-12-08] MEDS: ACETAMINOPHEN 650 MG/20.3 ML UDC OG-TUBE PRN (11:10)
--- NOTE | 2016-12-08 11:10 | HHI.GIFU ---
Subjective Remarks GI reconsulted for PEG tube placement. (Bessy Hernandez) Objective Vitals I&O Vital Signs Date Time Temp Pulse Resp B/P (MAP) Pulse Ox O2 Delivery O2 Flow Rate FiO2 12/08/16 10:00 93 12/08/16 09:28 99 35 12/08/16 08:00 35 12/08/16 08:00 91 12/08/16 08:00 100.9 109 19 110/53 (72) 100 12/08/16 06:00 91 12/08/16 04:12 98 35 12/08/16 04:00 100.8 90 18 134/60 (84) 98 12/08/16 04:00 35 12/08/16 04:00 90 12/08/16 02:00 90 12/08/16 00:00 35 12/08/16 00:00 95 12/08/16 00:00 99.3 95 18 127/60 (82) 99 12/07/16 22:17 98 35 12/07/16 22:00 91 12/07/16 20:00 98.7 90 18 110/53 (72) 99 12/07/16 20:00 35 12/07/16 20:00 90 12/07/16 18:00 93 12/07/16 16:03 97 35 12/07/16 16:00 88 12/07/16 16:00 35 12/07/16 16:00 98.4 88 20 131/61 (84) 97 12/07/16 14:00 90 12/07/16 12:52 97 35 12/07/16 12:00 98.6 92 32 136/56 (82) 95 12/07/16 12:00 92 12/07/16 12:00 35 I/O 12/07/16 12/07/16 12/07/16 12/08/16 12/08/16 12/08/16 07:00 15:00 23:00 07:00 15:00 23:00 Intake Total 120 ml 1234 ml 360 ml 143 ml Output Total 1000 ml 0 ml 950 ml 550 ml Balance -880 ml 1234 ml -590 ml -550 ml 143 ml IV Total 100 ml 1234 ml 150 ml 143 ml Tube Feeding 20 ml 10 ml Other 200 ml Output Urine Total 1000 ml 750 ml 550 ml Gastric Drainage Total 200 ml Tube Feeding Residual Discard 0 ml # Bowel Movements 1 6 5 Laboratory Laboratory Tests Test 12/08/16 03:24 White Blood Count 11.8 Red Blood Count 3.16 Hemoglobin 8.8 Hematocrit 26.4 Mean Corpuscular Volume 83.6 Mean Corpuscular Hemoglobin 27.7 Mean Corpuscular Hemoglobin Concent 33.1 Red Cell Distribution Width 17.0 Platelet Count 61 Mean Platelet Volume 10.7 CBC Comment AUTO DIFF Differential Total Cells Counted 100 Neutrophils % (Manual) 97 Lymphocytes % 1 Eosinophils % 1 Neutrophils # (Manual) 11.4 Differential Comment FINAL DIFF MANUAL Plasma Cells 1 Platelet Estimate LOW Platelet Morphology Comment NORMAL Tear Drop Cells 1+ Acanthocytes 1+ Keratocytes 1+ Blood Urea Nitrogen 7 Creatinine 0.76 Random Glucose 76 Calcium Level 7.8 Sodium Level 141 Potassium Level 3.3 Chloride Level 111 Carbon Dioxide Level 21.3 Anion Gap 9 Estimat Glomerular Filtration Rate 72 Date/Time Source Procedure Growth Status 12/03/16 15:25 Blood Peripheral Aerobic Blood Culture - Preliminary NO GROWTH IN 4 DAYS Resulted 12/03/16 15:25 Blood Peripheral Anaerobic Blood Culture - Preliminary NO GROWTH IN 4 DAYS Resulted 11/30/16 23:00 Stool Stool Stool Occult Blood (MAXINE) - Final HEMOCCULT POSITIVE Complete 12/07/16 10:41 Sputum Endotracheal Gram Stain - Final Resulted 12/07/16 10:41 Sputum Endotracheal Sputum Culture Pending Resulted Imaging Last Impressions Abdomen X-Ray 12/07/16 0000 Signed Impressions: Service Date/Time: Wednesday, December 07, 2016 10:02 - CONCLUSION: 1. Improved mild adynamic ileus bowel gas pattern. Sam Buckner MD Chest X-Ray 12/06/16 0600 Signed Impressions: Service Date/Time: November 05:19 - CONCLUSION: 1. Slight improvement in basilar airspace disease since December 03. Support apparatus unchanged. Romario Kauffman MD Chest CT 12/01/16 0000 Signed Impressions: Service Date/Time: Thursday, December 01, 2016 08:13 - CONCLUSION: 1. Severe emphysema with bilateral airspace consolidation in a patchy distribution involving the upper and lower lobes but most severe in the left lower lobe. There is also a trace left pleural effusion. Imaging findings are nonspecific but infection or aspiration should be considerations. 2. Coronary artery calcification. Giovani Lopez MD Abdomen/Pelvis CT 12/01/16 0000 Signed Impressions: Service Date/Time: Thursday, December 01, 2016 08:13 - CONCLUSION: 1. No acute finding is identified to explain the blood in stool. There are postsurgical findings suggesting prior right hemicolectomy. Colon contains a fluid and air and there is sigmoid diverticulosis. 2. Small volume of free fluid in the abdomen and pelvis. Also, there is mild diffuse subcutaneous edema. Giovani Lopez MD Head CT 11/27/16 Signed Impressions: Service Date/Time: Sunday, November 27, 2016 14:47 - CONCLUSION: 1. Questionable edema or subacute infarct in the left parietal deep white matter. This would be better evaluated with MRI. No intracranial hemorrhage or significant mass effect. Romario Kauffman MD Brain MRI 11/27/16 0000 Signed Impressions: Service Date/Time: Sunday, November 27, 2016 18:10 - CONCLUSION: 1. Moderate periventricular and subcortical white matter small vessel ischemic changes bilaterally. 2. 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 3. No acute infarct, acute hemorrhage, mass effect or extra-axial fluid collection. 4. Fluid level within sphenoid sinuses. 5. Fluid within the mastoid air cells bilaterally. Hasmukh Oakes MD Abdomen Ultrasound 11/23/16 Signed Impressions: Service Date/Time: Wednesday, November 23, 2016 19:33 - CONCLUSION: 1. Somewhat limited study. Proximal superior mesenteric artery appears patent. 2. Mildly elevated flow velocities in the celiac and hepatic arteries of doubtful clinical significance. Giovani Martinez MD GI Procedure 11/21/16 0000 Signed Impressions: Service Date/Time: Monday, November 21, 2016 10:44 - CONCLUSION: ERCP as above. Reymundo Wilburn MD FACR Physical Exam HEENT: Normocephalic; atraumatic; right eye prosthesis. Ventilator via trach. CHEST: CTA CARDIAC: RRR ABDOMEN: Soft, obese, mild distention, diffuse TTP, midline incision line well approximated with triston, hypoactive bowel sounds. EXTREMITIES: Trace peripheral edema. SKIN: Normal; no rash; no jaundice. BISQUE TILE BURNER: Sedated. (Bessy Hernandez) Assessment and Plan Plan ASSESSMENT - Melena, Hemoccult (+). Passing melanotic/maroon stool with clots on 11/30 and 12/01. No further episodes. S/P EGD (12/03/16)---> No active bleeding, gastritis, possible NG tube trauma. HH Stable 8.8/.4. Tolerating TF - Anemia. S/P 3 units. HH 8.8/.4. PPI - Ileus, Abdominal distention in patient with recent right colectomy. CT scan abdomen and pelvis without contrast (12/01/16)----> No acute finding is identified to explain the blood in the stool. There are postsurgical findings suggesting prior right hemicolectomy. Colon contains a fluid and air and there is sigmoid diverticulosis. KUB 12/04-- revealed mild ileus. KUB abdomen 12/07--Improved mild adynamic ileus bowel gas pattern. Reglan. + Liquid stool - Diarrhea. CDiff negative. - Recent cecal volvulus, S/p exploratory laparotomy with right colectomy, cholecystomy, for cecal volvulus and gallstones and CBD stones (11/24/16) with Dr. Polanco. - Choledocholithiasis. S/P ERCP with removal of stones (11/21/16)---> ampulla revealed a prior sphincterotomy, 3 stones in the major papilla, s/p stone extraction with balloon sweep several times. LFT stable. T. Bili normal. - Thrombocytopenia. Platelets 61 - Sepsis/Leukocytosis, Blood cx 12/03 no growth in 4/5 days. Sputum 12/03, MRSA. WBC 11.8. ID following. Zosyn/Diflucan. - Respiratory failure, COPD, pulmonary htn. On CPAP. Per CCM - Acute kidney injury with electrolyte abnormalities. Creat 0.76. Renal following. - Afib, Systolic heart failure. Anticoagulation is on hold secondary to GI bleeding. - PAD, CVA per attending. 12/08/16--GI consulted for PEG tube placement PLAN - PEG tube placement Saturday - NPO at [facility] on Saturday night, hold TF - Obtain consents - Continue PPI - Cont. Reglan - Monitor labs - Supportive care - Consider colonoscopy as outpatient once she recovers from recent colectomy - Further recommendations to follow based on results of above Patient seen and examined by Dr. Arredondo and myself and this note is written on his behalf (Bessy Hernandez) Plan Patient was seen and examined, agree with above note, known to us from previous consultation, plan to have picked tube on Saturday (Ian Arredondo MD) Bessy Hernandez Dec 08, 2016 11:10 Ian Arredondo MD Dec 08, 2016 20:33
[2016-12-08] MEDS: FLUCONAZOLE 400 MG PREMIX BAG 200 ML IV SCH (12:26)
[2016-12-08] MEDS: POTASSIUM CHLOR 40 MEQ PREMIX 100 ML IV PRN (20:52)
[2016-12-08] MEDS: ATORVASTATIN 80 MG TAB PO SCH (20:53)
[2016-12-09] VITALS (19 sets, daily range): BP systolic 119–137; BP diastolic 56–63; PULSE 75–91; RESP 18–26; TEMP 98–98.9; O2SAT 95–100
[2016-12-09] MEDS: LINEZOLID 600 MG PREMIX 300 ML IV SCH ×2 (02:38→15:18)
[2016-12-09] MEDS: PIPERACIL-TAZO 2.25 GM PREMIX 50 ML IV SCH ×4 (02:39→20:41)
[2016-12-09] MEDS: RESP: ALBUTEROL 2.5 MG/IPRATROPIUM 0.5 MG NEB (SCH) NEB ×4 (03:37→19:36)
[2016-12-09] MEDS: INSULIN NovoLIN REGULAR SUPPLEMENTAL SCALE SQ SCH ×5 (04:15→20:15)
[2016-12-09 04:24] LABS: AUTOMATED NEUTROPHIL # 9.9 TH/MM3 (1.8-7.7); BASOPHIL # 0.1 TH/MM3 (0-0.2); BASOPHIL % 0.5 % (0.0-2.0); EOSINOPHIL # 0.1 TH/MM3 (0-0.4); EOSINOPHIL % 0.6 % (0.0-4.0); HEMATOCRIT 26.3 % (35.0-46.0); LYMPH % 4.8 % (9.0-44.0); LYMPHOCYTE # 0.5 TH/MM3 (1.0-4.8); MEAN CELL VOLUME 84.2 FL (80.0-100.0); MEAN CORPUSCULAR HEMOGLOBIN 28.3 PG (27.0-34.0); MEAN CORPUSCULAR HGB CONC 33.6 % (32.0-36.0); NEUT % 92.1 % (16.0-70.0); PLATELET COUNT 59 TH/MM3 (150-450); RED BLOOD COUNT 3.12 MIL/MM3 (4.00-5.30); RED CELL DISTRIBUTION WIDTH 16.5 % (11.6-17.2); WHITE BLOOD COUNT 10.8 TH/MM3 (4.0-11.0)
[2016-12-09 04:43] LABS: HEMO FLAGS DIFF FINAL
[2016-12-09 04:50] LABS: BICARBONATE 20.3 MEQ/L (21.0-32.0); POTASSIUM 4.5 MEQ/L (3.5-5.1)
[2016-12-09] MEDS: FREE WATER G-TUBE SCH (06:00)
[2016-12-09] MEDS: ARTIFICIAL TEARS OPTH SOLN 15 ML BTL LEFT EYE SCH ×3 (06:00→20:51)
[2016-12-09] MEDS: DILTIAZEM HCL 30 MG TAB PO SCH ×4 (06:08→22:50)
[2016-12-09] MEDS: METOCLOPRAMIDE HCL 10 MG/2 ML VIAL IV PUSH SCH ×3 (06:09→20:51)
[2016-12-09] MEDS: URSODIOL 300 MG CAP PO SCH ×2 (09:46→20:41)
[2016-12-09] MEDS: PROPOFOL 1000 MG/100 ML INJ 100 ML IV PRN ×2 (09:46→20:40)
[2016-12-09] MEDS: LACTULOSE SYRUP 20 GM/30 ML CUP NG SCH ×2 (09:46→20:41)
[2016-12-09] MEDS: SODIUM BICARBONATE 325 MG TAB NG SCH ×3 (09:46→18:48)
[2016-12-09] MEDS: PANTOPRAZOLE SODIUM 40 MG VIAL IV PUSH SCH ×2 (09:47→20:41)
[2016-12-09] MEDS: POTASSIUM CHLORIDE 25 MEQ EFFERVESCENT TAB NG SCH (09:47)
[2016-12-09] MEDS: SODIUM CHLORIDE 0.9% FLUSH 10 ML FLUSH IV FLUSH SCH ×2 (09:47→20:51)
--- NOTE | 2016-12-09 10:43 | HHI.CCPN ---
Subjective Remarks/Hospital Course 86 y/o woman developed worsening SOB this afternoon associated with marked leukocytosis. Recent biliary instrumentation for obstruction 48 hours ago and probable sepsis. On appropriate antibiotics. Requiring NRBM now for oxygenation to 97%. Visibly labored breathing. CXR with interstitial edema. EF 35% 2014. Move to ICU. 11/24: Patient s/p colonoscopy this morning which showed mod. diverticulosis in sigmoid colon and hemorrhoids. Remains on NRB with good sats. Afebrile. Cr increased 1.51 from 1.08. 11/25 Patient s/p Ex lap, right colectomy and cholecystectomy. She kept intubated postop went into Afib with RVR overnight and placed on Cardizem drip 10mg/hr. 11/26 Patient is sedated with Diprivan, fentanyl and intubated. Afebrile. On Cardizem drip 5mg/hr. renal function worse with Cr: 2.01 from 1.89, UOP: 1L in 24 hrs 11/27 Patient remains sedated and intubated. Off Cardizem drip. Renal function is improving with Cr: 1.67 from 2.01. Afebrile. 11/28 remains intubated sedated. Heart rate controlled. Creat 1.26. Hb 6.5. Status post 2 units PRBC today. WBC count decreased from 40,000-26,000. Creat improving 1.26 11/29: Patient A. fib with RVR currently on diltiazem drip at 15 mg an hour for rate control. Hemodynamically stable. 11/30: Heart rate better controlled today. Diltiazem drip discontinued overnight. Heart rate currently in the 70s. Tolerated PSV trials yesterday. We'll attempt extubation today if tolerates. No bowel movement. Tolerating tube feeds at 30 cc an hour 12/01: Tmax 101.7. Failed extubation trial after 1 hour yesterday. Persistently hypotensive post intubation. Transfuse 1 unit hemoglobin yesterday for melena per RN. Hemoglobin went from 7.5-11.3. CVP is 12. Enoxaparin will be held. CT thorax, abdomen and pelvis performed now. Lactate pending. Serial hemoglobins. GI consult for EGD 12/03: Patient remains sedated with Diprivan and Fentanyl and intubated. On Levophed 4 mics, Cardizem drip 2.5mg/hr. For EGD today 12/04 Patient is sedated and intubated. s/p EGD yesterday showed gastritis, no active bleeding. Remains on Cardizem 2.5mg/hr and Levophed 3 mics. Afebrile. Subjective 12/05: Afebrile. Hemoglobin stable. Off norepinephrine and diltiazem drips. Creatinine stabilizing. 12/06: No acute events reported overnight. Plan for tracheostomy at 10 AM today. Platelet count is 68,000, discussed this with Dr. Polanco. HIT screen ordered yesterday pending 12/07 Patient s/p trach yesterday sedated with Diprivan. Afebrile. 12/08 Patient is on ventilator via trach, T: 100.8 at 4am. 12/09 No events overnight sedated with Diprivan and intubated. Afebrile. Objective Vital Signs Date Time Temp Pulse Resp B/P (MAP) Pulse Ox O2 Delivery O2 Flow Rate FiO2 12/09/16 08:00 35 12/09/16 08:00 98.4 86 18 137/59 (85) 97 Intake and Output 12/09/16 12/09/16 12/10/16 08:00 16:00 00:00 Intake Total 966 ml Output Total 450 ml Balance 516 ml Result Diagram: 12/09/16 0330 12/09/16 0330 Other Results Laboratory Tests Test 12/08/16 18:55 12/09/16 03:30 Potassium Level 3.3 MEQ/L 4.5 MEQ/L White Blood Count 10.8 TH/MM3 Red Blood Count 3.12 MIL/MM3 Hemoglobin 8.8 GM/DL Hematocrit 26.3 % Mean Corpuscular Volume 84.2 FL Mean Corpuscular Hemoglobin 28.3 PG Mean Corpuscular Hemoglobin Concent 33.6 % Red Cell Distribution Width 16.5 % Platelet Count 59 TH/MM3 Mean Platelet Volume 10.6 FL Neutrophils (%) (Auto) 92.1 % Lymphocytes (%) (Auto) 4.8 % Monocytes (%) (Auto) 2.0 % Eosinophils (%) (Auto) 0.6 % Basophils (%) (Auto) 0.5 % Neutrophils # (Auto) 9.9 TH/MM3 Lymphocytes # (Auto) 0.5 TH/MM3 Monocytes # (Auto) 0.2 TH/MM3 Eosinophils # (Auto) 0.1 TH/MM3 Basophils # (Auto) 0.1 TH/MM3 CBC Comment DIFF FINAL Differential Comment Blood Urea Nitrogen 9 MG/DL Creatinine 0.82 MG/DL Random Glucose 66 MG/DL Calcium Level 8.3 MG/DL Sodium Level 139 MEQ/L Chloride Level 111 MEQ/L Carbon Dioxide Level 20.3 MEQ/L Anion Gap 8 MEQ/L Estimat Glomerular Filtration Rate 66 ML/MIN Imaging Last Impressions Abdomen X-Ray 12/07/16 0000 Signed Impressions: Service Date/Time: Wednesday, December 07, 2016 10:02 - CONCLUSION: 1. Improved mild adynamic ileus bowel gas pattern. Sam Buckner MD Chest X-Ray 12/06/16 0600 Signed Impressions: Service Date/Time: November 05:19 - CONCLUSION: 1. Slight improvement in basilar airspace disease since December 03. Support apparatus unchanged. Romario Kauffman MD Chest CT 12/01/16 0000 Signed Impressions: Service Date/Time: Thursday, December 01, 2016 08:13 - CONCLUSION: 1. Severe emphysema with bilateral airspace consolidation in a patchy distribution involving the upper and lower lobes but most severe in the left lower lobe. There is also a trace left pleural effusion. Imaging findings are nonspecific but infection or aspiration should be considerations. 2. Coronary artery calcification. Giovani Lopez MD Abdomen/Pelvis CT 12/01/16 0000 Signed Impressions: Service Date/Time: Thursday, December 01, 2016 08:13 - CONCLUSION: 1. No acute finding is identified to explain the blood in stool. There are postsurgical findings suggesting prior right hemicolectomy. Colon contains a fluid and air and there is sigmoid diverticulosis. 2. Small volume of free fluid in the abdomen and pelvis. Also, there is mild diffuse subcutaneous edema. Giovani Lopez MD Head CT 11/27/16 0000 Signed Impressions: Service Date/Time: Sunday, November 27, 2016 14:47 - CONCLUSION: 1. Questionable edema or subacute infarct in the left parietal deep white matter. This would be better evaluated with MRI. No intracranial hemorrhage or significant mass effect. Romario Kauffman MD Brain MRI 11/27/16 0000 Signed Impressions: Service Date/Time: Sunday, November 27, 2016 18:10 - CONCLUSION: 1. Moderate periventricular and subcortical white matter small vessel ischemic changes bilaterally. 2. 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 3. No acute infarct, acute hemorrhage, mass effect or extra-axial fluid collection. 4. Fluid level within sphenoid sinuses. 5. Fluid within the mastoid air cells bilaterally. Hasmukh Oakes MD Abdomen Ultrasound 11/23/16 0000 Signed Impressions: Service Date/Time: Wednesday, November 23, 2016 19:33 - CONCLUSION: 1. Somewhat limited study. Proximal superior mesenteric artery appears patent. 2. Mildly elevated flow velocities in the celiac and hepatic arteries of doubtful clinical significance. Giovani Martinez MD GI Procedure 11/21/16 0000 Signed Impressions: Service Date/Time: Monday, November 21, 2016 10:44 - CONCLUSION: ERCP as above. Reymundo Wilburn MD FACR Objective Remarks GENERAL: 86 yo female, on ventilator via trach SKIN: Warm and dry. No rash HEAD: Normocephalic. EYES: No scleral icterus. No injection or drainage. 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 NECK: Supple, trachea midline. No JVD or lymphadenopathy. Trach in place CARDIOVASCULAR: RRR. S1, S2 no S4. 2/6 systolic murmur left lower sternal border/right upper sternal border RESPIRATORY: Breath sounds equal bilaterally. No accessory muscle use. GASTROINTESTINAL: Abdomen soft, tenderness on palpation. MUSCULOSKELETAL: Trace peripheral edema Neuro: Currently on propofol for sedation. Withdraws all 4 extremities to noxious stimulation. Positive gag. 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 Date of Insertion: Nov 24, 2016 Line: Central Venous Catheter Side: Right Location: Internal, Jugular A/P Assessment and Plan Neuro/Psych: History of chronic bilateral basal ganglia CVA Acute toxic metabolic encephalopathy Prosthetic left eye Currently on propofol as needed infusion for sedation/analgesia while intubated Goal of RASS -2 Daily sedation vacation. MRI brain 11/27 showed moderate small vessel disease, old bilateral basal ganglia CVA however no acute findings. Evaluated by Dr. Roque - neurology Continue amitriptyline 10 mg at night Acetaminophen 650 mg by tube every 6 hours. Fever Pulm: Acute hypoxemic respiratory failure- Extubated and reintubated on 11/30 History of COPD ACV 18/650/5/35 Ventilator bundle. s/p trach 12/06 Albuterol/ipratropium aerosols every 6 hours with albuterol aerosols every 2 hours as needed for dyspnea Continue with vent support and maintain sat >92%. SBT daily as adelina. Check CXR and ABG CT chest 11/20: Severe underlying emphysema. Status post median sternotomy with postsurgical changes. CT thorax 11/30 revealed severe emphysema. Bilateral upper and lower lobe infiltrates/glass ground likely aspiration. CV: Systolic heart failure - likely chronic ejection fraction 40% Severe sepsis Atrial Fibrillation w/ RVR - normal sinus rhythm History of hypertension Severe pulmonary hypertension likely group 3 secondary to COPD PAD history of bilateral CEA Currently on diltiazem 30 mg by mouth every 6 hours. Echo from 11/26 EF 40%, mild MR. Moderate AR/TR. Severe pulmonary HTN (PAP 70mmHg) ASA 81 mg daily held in light of GI bleeding Continue Atorvastatin 80 mg daily RENAL//FEN: Acute kidney injury resolved Monitor renal function, I/O's, avoid nephrotoxins, d/c Free water Nephrology is following- Dr. 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 Gastroesophageal reflux disease Transaminitis Hyperammonia Constipation Resume TF- trickle feeds- Glucerna 1.5@ 10 ml/hr with goal rate 45 cc KUB abdomen 12/07: Improved mild adynamic ileus bowel gas pattern. KUB 12/04 revealed mild ileus. 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 Mild head pancreatitis possible in the proper clinical setting. Patient has recently had ERCP and bile duct stone extraction. Bibasilar pneumonia developing. Tiny pleural effusion on the right US abdomen: Proximal superior mesenteric artery appears patent. Currently on lactulose 30 cc twice a day. Ammonia level 42 on 12/06 On ursodiol 300 mg by mouth twice daily. Resume when clinically indicated On metoclopramide per Dr. Polanco for bowel prokinetic medication ID: MRSA pneumonia Continue with abx per ID (piperacillin/tazobactam/fluconazole/Zyvox) Monitor for signs of infections ( Fever, WBC) Follow up on sputum 12/07- MRSA Pertinent cultures BC 11/24: NGTD . Blood cultures 11/29 -no growth C. difficile negative 12/01 12/03 - blood cultures 2 - no growth 12/03, 12/07 - sputum - MRSA Heme: Leukocytosis..trending down Normocytic anemia Thrombocytopenia Monitor CBC Status post 2 units PRBCs 11/28. 1 unit PRBCs 12/01 Hemoccult stool 11/30 positive HIT negative Endo: SSI with accuchecks with Novulin R every 4 hours GI prophylaxis- Pantoprazole 40mg IV twice a day DVT prophylaxis- Enoxaparin 30mg daily held in light of GI bleed, thrombocytopenia Lines: peripheral IV's Level 3 Marian Rodríguez MD Dec 09, 2016 10:43
--- NOTE | 2016-12-09 11:25 | RADRPT ---
EXAM DATE/TIME: 12/09/2016 11:08 [facility] COMPARISON: CHEST SINGLE AP, December 06, 2016, 10:31. ABDOMEN KUB ONLY, December 07, 2016, 10:02. INDICATIONS : Respiratory distress. MEDICAL HISTORY : Hypertension. Stroke. SURGICAL HISTORY : Hysterectomy. CABG. ENCOUNTER: Subsequent ACUITY: 1 week PAIN SCORE: Non-responsive. LOCATION: Bilateral chest FINDINGS: The heart is normal in size. There is consolidation of the medial aspect of the left lower lobe with minimal left basilar effusion. There is diffuse chronic appearing interstitial change throughout both lungs. The tracheostomy is in satisfactory position. The patient is post median sternotomy. As a nasogastric tube present. CONCLUSION: 1. Consolidation of the left lower lobe stable compared to previous. 2. Tracheostomy and NG tube in satisfactory position. 3. Diffuse interstitial prominence similar to previous. Ben Wilburn MD on December 09, 2016 at 11:23 Board Certified Radiologist. This report was verified electronically.
[2016-12-09 12:14] LABS: BLOOD GAS BASE EXCESS -6.5 mmol/L (-2-2); BLOOD GAS CARBOXYHEMOGLOBIN 1.8 % (0-4); BLOOD GAS HCO3 17 mmol/L (22-26); BLOOD GAS METHEMOGLOBIN 1.2 % (0-2); BLOOD GAS O2 HGB SATURATION 96 % (90-100); BLOOD GAS OXYGEN CONTENT 11.7 Vol % (12.0-20.0); BLOOD GAS PCO2 25 mmHg (38-42); BLOOD GAS PO2 118 mmHg (61-120); BLOOD GAS TOTAL HGB 8.5 G/DL (12.0-16.0); CRITICAL VALUE NO; OXYGEN DEVICE VENTILATOR; TEMP CORR TO 98.6
[2016-12-09 12:15] LABS: DRAW SITE LT RADIAL; FIO2 35 %; STAT NO; ULNAR PULSE PRESENT
[2016-12-09] MEDS: FLUCONAZOLE 400 MG PREMIX BAG 200 ML IV SCH (12:19)
--- NOTE | 2016-12-09 17:21 | HHI.IDPN ---
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 Vital Signs Date Time Temp Pulse Resp B/P (MAP) Pulse Ox O2 Delivery O2 Flow Rate FiO2 12/09/16 15:00 100 35 12/09/16 12:00 35 12/09/16 12:00 98.7 87 18 129/59 (82) 96 12/09/16 11:43 95 35 12/09/16 08:00 35 12/09/16 08:00 98.4 86 18 137/59 (85) 97 12/09/16 07:57 98 35 12/09/16 04:45 98 35 12/09/16 04:00 98.0 85 21 121/58 (79) 97 12/09/16 04:00 35 12/09/16 01:34 100 35 12/09/16 00:00 35 12/09/16 00:00 98.2 82 19 119/58 (78) 99 12/08/16 22:35 100 35 12/08/16 20:00 35 12/08/16 20:00 98.6 77 19 119/56 (77) 99 12/08/16 18:00 78 . Laboratory Tests Test 12/08/16 03:24 12/09/16 03:30 White Blood Count 11.8 TH/MM3 10.8 TH/MM3 Red Blood Count 3.16 MIL/MM3 3.12 MIL/MM3 Hemoglobin 8.8 GM/DL 8.8 GM/DL Hematocrit 26.4 % 26.3 % Mean Corpuscular Volume 83.6 FL 84.2 FL Mean Corpuscular Hemoglobin 27.7 PG 28.3 PG Mean Corpuscular Hemoglobin Concent 33.1 % 33.6 % Red Cell Distribution Width 17.0 % 16.5 % Platelet Count 61 TH/MM3 59 TH/MM3 Mean Platelet Volume 10.7 FL 10.6 FL CBC Comment AUTO DIFF DIFF FINAL Differential Total Cells Counted 100 Neutrophils % (Manual) 97 % Lymphocytes % 1 % Eosinophils % 1 % Neutrophils # (Manual) 11.4 TH/MM3 Differential Comment FINAL DIFF MANUAL Plasma Cells 1 % Platelet Estimate LOW Platelet Morphology Comment NORMAL Tear Drop Cells 1+ Acanthocytes 1+ Keratocytes 1+ Neutrophils (%) (Auto) 92.1 % Lymphocytes (%) (Auto) 4.8 % Monocytes (%) (Auto) 2.0 % Eosinophils (%) (Auto) 0.6 % Basophils (%) (Auto) 0.5 % Neutrophils # (Auto) 9.9 TH/MM3 Lymphocytes # (Auto) 0.5 TH/MM3 Monocytes # (Auto) 0.2 TH/MM3 Eosinophils # (Auto) 0.1 TH/MM3 Basophils # (Auto) 0.1 TH/MM3 Laboratory Tests Test 12/08/16 03:24 12/08/16 18:55 12/09/16 03:30 Blood Urea Nitrogen 7 MG/DL 9 MG/DL Creatinine 0.76 MG/DL 0.82 MG/DL Random Glucose 76 MG/DL 66 MG/DL Calcium Level 7.8 MG/DL 8.3 MG/DL Sodium Level 141 MEQ/L 139 MEQ/L Potassium Level 3.3 MEQ/L 3.3 MEQ/L 4.5 MEQ/L Chloride Level 111 MEQ/L 111 MEQ/L Carbon Dioxide Level 21.3 MEQ/L 20.3 MEQ/L Anion Gap 9 MEQ/L 8 MEQ/L Estimat Glomerular Filtration Rate 72 ML/MIN 66 ML/MIN Microbiology Date/Time Source Procedure Growth Status 12/07/16 10:41 Sputum Endotracheal Gram Stain - Final Complete 12/07/16 10:41 Sputum Culture - Final S. Aureus Mrsa Complete Imaging Last Impressions Abdomen X-Ray 12/07/16 0000 Signed Impressions: Service Date/Time: Wednesday, December 07, 2016 10:02 - CONCLUSION: 1. Improved mild adynamic ileus bowel gas pattern. Sam Buckner MD Chest X-Ray 12/06/16 0600 Signed Impressions: Service Date/Time: November 05:19 - CONCLUSION: 1. Slight improvement in basilar airspace disease since December 03. Support apparatus unchanged. Romario Kauffman MD Chest CT 12/01/16 0000 Signed Impressions: Service Date/Time: Thursday, December 01, 2016 08:13 - CONCLUSION: 1. Severe emphysema with bilateral airspace consolidation in a patchy distribution involving the upper and lower lobes but most severe in the left lower lobe. There is also a trace left pleural effusion. Imaging findings are nonspecific but infection or aspiration should be considerations. 2. Coronary artery calcification. Giovani Lopez MD Abdomen/Pelvis CT 12/01/16 0000 Signed Impressions: Service Date/Time: Thursday, December 01, 2016 08:13 - CONCLUSION: 1. No acute finding is identified to explain the blood in stool. There are postsurgical findings suggesting prior right hemicolectomy. Colon contains a fluid and air and there is sigmoid diverticulosis. 2. Small volume of free fluid in the abdomen and pelvis. Also, there is mild diffuse subcutaneous edema. Giovani Lopez MD Head CT 11/27/16 0000 Signed Impressions: Service Date/Time: Sunday, November 27, 2016 14:47 - CONCLUSION: 1. Questionable edema or subacute infarct in the left parietal deep white matter. This would be better evaluated with MRI. No intracranial hemorrhage or significant mass effect. Romario Kauffman MD Brain MRI 11/27/16 0000 Signed Impressions: Service Date/Time: Sunday, November 27, 2016 18:10 - CONCLUSION: 1. Moderate periventricular and subcortical white matter small vessel ischemic changes bilaterally. 2. 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 3. No acute infarct, acute hemorrhage, mass effect or extra-axial fluid collection. 4. Fluid level within sphenoid sinuses. 5. Fluid within the mastoid air cells bilaterally. Hasmukh Oakes MD Abdomen Ultrasound 11/23/16 0000 Signed Impressions: Service Date/Time: Wednesday, November 23, 2016 19:33 - CONCLUSION: 1. Somewhat limited study. Proximal superior mesenteric artery appears patent. 2. Mildly elevated flow velocities in the celiac and hepatic arteries of doubtful clinical significance. Giovani Martinez MD GI Procedure 11/21/16 0000 Signed Impressions: Service Date/Time: Monday, November 21, 2016 10:44 - CONCLUSION: ERCP as above. Reymundo Wilburn MD FACR Physical Exam CONSTITUTIONAL/GENERAL: This is an adequately nourished patient, in no apparent distress. sedated int'd on vent TUBES/LINES/DRAINS: SKIN: No jaundice, rashes, or lesions. Skin temperature appropriate. Not diaphoretic. EYES: OD - prosthesis Fundi not examined. CARDIOVASCULAR: Regular rate and rhythm + 2/6 systolic murmur, no gallops, or rubs. No JVD. Peripheral pulses symmetric. Well perfused perifery RESPIRATORY/CHEST: Symmetric, unlabored respirations. Rhonchi to auscultation. Breath sounds equal bilaterally. No wheezes, rales, or rhonchi. GASTROINTESTINAL:Abd distended, tight; no reaction to palpation incision is healing, clean, closed BS hypoactive dignishield in place with liquid dark stool GENITOURINARY: Without palpable bladder distension. Sanchez catheter in place with small amount of dark yellow urine UOP improved MUSCULOSKELETAL: Extremities without clubbing, , Increasing 3 + tight edema. improved cyanosis feet, fingers NEUROLOGICAL: sedated unresponsive PSYCHIATRIC: unable to assess Assessment & Plan Remarks Volvulus sp colon resection and cholecystectomy path benign:cecum volvulus and chronic calculous cholecstitis Sepsis from intraabdominal source (leukocytosis, leukemoid reaction, hypoxia, JOSUE) leukocytosis, leukemoid reaction: resolviving ARF: improving New problem : aspiration, ileus Recurrent VDRF - sp reintubation Melena: CT unremarkable Diarrhea, C.diff negative Thrombocytopenia : HIT negative; zyvox just started, unlikely to contribtute at this point, though other abx (zosyn, vanco) also can be implicated in thrombocytopenia fibrinogen nl Not improving clincally Now main problem is ileus, not tolerating TF Rec: fu WBC monitor plts cont zosyn, fluconazol cont zyvox iv , can switch to oral if tolerates tube feeds consider CT if repeat c.diff negative Sharon Guerra RN, MD Dec 09, 2016 17:21
[2016-12-09] MEDS: ATORVASTATIN 80 MG TAB PO SCH (20:42)
[2016-12-10] VITALS (17 sets, daily range): BP systolic 107–155; BP diastolic 54–75; PULSE 74–87; RESP 15–21; TEMP 97.5–98.3; O2SAT 97–100
[2016-12-10] MEDS: INSULIN NovoLIN REGULAR SUPPLEMENTAL SCALE SQ SCH ×6 (00:15→20:15)
[2016-12-10] MEDS: PIPERACIL-TAZO 2.25 GM PREMIX 50 ML IV SCH ×2 (01:09→09:54)
[2016-12-10] MEDS: LINEZOLID 600 MG PREMIX 300 ML IV SCH ×2 (01:09→16:09)
[2016-12-10] MEDS: RESP: ALBUTEROL 2.5 MG/IPRATROPIUM 0.5 MG NEB (SCH) NEB ×2 (03:57→08:43)
[2016-12-10] MEDS: ARTIFICIAL TEARS OPTH SOLN 15 ML BTL LEFT EYE SCH ×3 (05:47→20:36)
[2016-12-10] MEDS: DILTIAZEM HCL 30 MG TAB PO SCH ×3 (05:47→18:12)
[2016-12-10] MEDS: METOCLOPRAMIDE HCL 10 MG/2 ML VIAL IV PUSH SCH ×3 (05:47→20:37)
[2016-12-10 09:07] LABS: AUTOMATED NEUTROPHIL # 9.1 TH/MM3 (1.8-7.7); BASOPHIL # 0.1 TH/MM3 (0-0.2); BASOPHIL % 0.6 % (0.0-2.0); EOSINOPHIL # 0.1 TH/MM3 (0-0.4); EOSINOPHIL % 0.7 % (0.0-4.0); HEMATOCRIT 25.1 % (35.0-46.0); LYMPH % 6.9 % (9.0-44.0); LYMPHOCYTE # 0.7 TH/MM3 (1.0-4.8); MEAN CORPUSCULAR HEMOGLOBIN 27.9 PG (27.0-34.0); MEAN CORPUSCULAR HGB CONC 33.7 % (32.0-36.0); MONO % 3.1 % (0.0-8.0); NEUT % 88.7 % (16.0-70.0); PLATELET COUNT 45 TH/MM3 (150-450); RED BLOOD COUNT 3.03 MIL/MM3 (4.00-5.30); WHITE BLOOD COUNT 10.2 TH/MM3 (4.0-11.0)
[2016-12-10 09:09] LABS: HEMO FLAGS AUTO DIFF
[2016-12-10 09:28] LABS: BICARBONATE 18.8 MEQ/L (21.0-32.0)
[2016-12-10 09:50] LABS: ACANTHOCYTES 1+ (NORMAL); BANDS 11 % (0-6); NEUTROPHIL # MANUAL DIFF 9.6 TH/MM3 (1.8-7.7); POLYS (SEG NEUTROPHILS) 83 % (16-70); WBC DIFF SAMPLE 100
[2016-12-10 09:51] LABS: KERATOCYTES OCC (NORMAL); PLATELET ESTIMATE SMEAR LOW (NORMAL); PLATELET MORPHOLOGY ENLARGED (NORMAL)
[2016-12-10 09:52] LABS: SCAN/DIFF FINAL DIFF MANUAL
[2016-12-10] MEDS: LACTULOSE SYRUP 20 GM/30 ML CUP NG SCH ×2 (09:54→20:36)
[2016-12-10] MEDS: SODIUM BICARBONATE 325 MG TAB NG SCH ×3 (09:54→18:12)
[2016-12-10] MEDS: URSODIOL 300 MG CAP PO SCH ×2 (09:54→20:37)
[2016-12-10] MEDS: SODIUM CHLORIDE 0.9% FLUSH 10 ML FLUSH IV FLUSH SCH ×2 (09:55→20:37)
[2016-12-10] MEDS: PANTOPRAZOLE SODIUM 40 MG VIAL IV PUSH SCH ×2 (09:55→20:36)
--- NOTE | 2016-12-10 10:26 | HHI.CCPN ---
Subjective Remarks/Hospital Course 86 y/o woman developed worsening SOB this afternoon associated with marked leukocytosis. Recent biliary instrumentation for obstruction 48 hours ago and probable sepsis. On appropriate antibiotics. Requiring NRBM now for oxygenation to 97%. Visibly labored breathing. CXR with interstitial edema. EF 35% 2014. Move to ICU. 11/24: Patient s/p colonoscopy this morning which showed mod. diverticulosis in sigmoid colon and hemorrhoids. Remains on NRB with good sats. Afebrile. Cr increased 1.51 from 1.08. 11/25 Patient s/p Ex lap, right colectomy and cholecystectomy. She kept intubated postop went into Afib with RVR overnight and placed on Cardizem drip 10mg/hr. 11/26 Patient is sedated with Diprivan, fentanyl and intubated. Afebrile. On Cardizem drip 5mg/hr. renal function worse with Cr: 2.01 from 1.89, UOP: 1L in 24 hrs 11/27 Patient remains sedated and intubated. Off Cardizem drip. Renal function is improving with Cr: 1.67 from 2.01. Afebrile. 11/28 remains intubated sedated. Heart rate controlled. Creat 1.26. Hb 6.5. Status post 2 units PRBC today. WBC count decreased from 40,000-26,000. Creat improving 1.26 11/29: Patient A. fib with RVR currently on diltiazem drip at 15 mg an hour for rate control. Hemodynamically stable. 11/30: Heart rate better controlled today. Diltiazem drip discontinued overnight. Heart rate currently in the 70s. Tolerated PSV trials yesterday. We'll attempt extubation today if tolerates. No bowel movement. Tolerating tube feeds at 30 cc an hour 12/01: Tmax 101.7. Failed extubation trial after 1 hour yesterday. Persistently hypotensive post intubation. Transfuse 1 unit hemoglobin yesterday for melena per RN. Hemoglobin went from 7.5-11.3. CVP is 12. Enoxaparin will be held. CT thorax, abdomen and pelvis performed now. Lactate pending. Serial hemoglobins. GI consult for EGD 12/03: Patient remains sedated with Diprivan and Fentanyl and intubated. On Levophed 4 mics, Cardizem drip 2.5mg/hr. For EGD today 12/04 Patient is sedated and intubated. s/p EGD yesterday showed gastritis, no active bleeding. Remains on Cardizem 2.5mg/hr and Levophed 3 mics. Afebrile. Subjective 12/05: Afebrile. Hemoglobin stable. Off norepinephrine and diltiazem drips. Creatinine stabilizing. 12/06: No acute events reported overnight. Plan for tracheostomy at 10 AM today. Platelet count is 68,000, discussed this with Dr. Polanco. HIT screen ordered yesterday pending 12/07 Patient s/p trach yesterday sedated with Diprivan. Afebrile. 12/08 Patient is on ventilator via trach, T: 100.8 at 4am. 12/09 No events overnight sedated with Diprivan and intubated. Afebrile. 12/10 Patient remains sedated and intubated, for PEG tube placement today. Objective Vital Signs Date Time Temp Pulse Resp B/P (MAP) Pulse Ox O2 Delivery O2 Flow Rate FiO2 12/10/16 09:42 98 35 12/10/16 06:00 76 12/10/16 04:00 97.6 16 136/60 (85) Intake and Output 12/10/16 12/10/16 12/11/16 08:00 16:00 00:00 Intake Total 430 ml Output Total 525 ml Balance -95 ml Result Diagram: 12/10/1682412/10/16824 Other Results Laboratory Tests Test 12/09/16 11:59 12/10/16 08:25 Blood Gas Puncture Site LT RADIAL Blood Gas Patient Temperature 98.6 Blood Gas HCO3 17 mmol/L Blood Gas Base Excess -6.5 mmol/L Blood Gas Oxygen Saturation 96 % Arterial Blood pH 7.44 Arterial Blood Partial Pressure CO2 25 mmHg Arterial Blood Partial Pressure O2 118 mmHg Arterial Blood Oxygen Content 11.7 Vol % Arterial Blood Carboxyhemoglobin 1.8 % Arterial Blood Methemoglobin 1.2 % Blood Gas Hemoglobin 8.5 G/DL Oxygen Delivery Device VENTILATOR Blood Gas Ventilator Setting Blood Gas Inspired Oxygen 35 % White Blood Count 10.2 TH/MM3 Red Blood Count 3.03 MIL/MM3 Hemoglobin 8.5 GM/DL Hematocrit 25.1 % Mean Corpuscular Volume 83.0 FL Mean Corpuscular Hemoglobin 27.9 PG Mean Corpuscular Hemoglobin Concent 33.7 % Red Cell Distribution Width 17.0 % Platelet Count 45 TH/MM3 Mean Platelet Volume 10.6 FL Neutrophils (%) (Auto) 88.7 % Lymphocytes (%) (Auto) 6.9 % Monocytes (%) (Auto) 3.1 % Eosinophils (%) (Auto) 0.7 % Basophils (%) (Auto) 0.6 % Neutrophils # (Auto) 9.1 TH/MM3 Lymphocytes # (Auto) 0.7 TH/MM3 Monocytes # (Auto) 0.3 TH/MM3 Eosinophils # (Auto) 0.1 TH/MM3 Basophils # (Auto) 0.1 TH/MM3 CBC Comment AUTO DIFF Differential Total Cells Counted 100 Neutrophils % (Manual) 83 % Band Neutrophils % 11 % Lymphocytes % 4 % Monocytes % 2 % Neutrophils # (Manual) 9.6 TH/MM3 Differential Comment FINAL DIFF MANUAL Platelet Estimate LOW Platelet Morphology Comment ENLARGED Acanthocytes 1+ Keratocytes OCC Blood Urea Nitrogen 9 MG/DL Creatinine 0.67 MG/DL Random Glucose 77 MG/DL Calcium Level 8.3 MG/DL Sodium Level 140 MEQ/L Potassium Level 3.0 MEQ/L Chloride Level 109 MEQ/L Carbon Dioxide Level 18.8 MEQ/L Anion Gap 12 MEQ/L Estimat Glomerular Filtration Rate 83 ML/MIN Imaging Last Impressions Chest X-Ray 12/09/16 0000 Signed Impressions: Service Date/Time: Friday, December 09, 2016 11:08 - CONCLUSION: 1. Consolidation of the left lower lobe stable compared to previous. 2. Tracheostomy and NG tube in satisfactory position. 3. Diffuse interstitial prominence similar to previous. Ben Wilburn MD Abdomen X-Ray 12/07/16 0000 Signed Impressions: Service Date/Time: Wednesday, December 07, 2016 10:02 - CONCLUSION: 1. Improved mild adynamic ileus bowel gas pattern. Sam Buckner MD Chest CT 12/01/16 0000 Signed Impressions: Service Date/Time: Thursday, December 01, 2016 08:13 - CONCLUSION: 1. Severe emphysema with bilateral airspace consolidation in a patchy distribution involving the upper and lower lobes but most severe in the left lower lobe. There is also a trace left pleural effusion. Imaging findings are nonspecific but infection or aspiration should be considerations. 2. Coronary artery calcification. Giovani Lopez MD Abdomen/Pelvis CT 12/01/16 0000 Signed Impressions: Service Date/Time: Thursday, December 01, 2016 08:13 - CONCLUSION: 1. No acute finding is identified to explain the blood in stool. There are postsurgical findings suggesting prior right hemicolectomy. Colon contains a fluid and air and there is sigmoid diverticulosis. 2. Small volume of free fluid in the abdomen and pelvis. Also, there is mild diffuse subcutaneous edema. Giovani Lopez MD Head CT 11/27/16 0000 Signed Impressions: Service Date/Time: Sunday, November 27, 2016 14:47 - CONCLUSION: 1. Questionable edema or subacute infarct in the left parietal deep white matter. This would be better evaluated with MRI. No intracranial hemorrhage or significant mass effect. Romario Kauffman MD Brain MRI 11/27/16 0000 Signed Impressions: Service Date/Time: Sunday, November 27, 2016 18:10 - CONCLUSION: 1. Moderate periventricular and subcortical white matter small vessel ischemic changes bilaterally. 2. 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 3. No acute infarct, acute hemorrhage, mass effect or extra-axial fluid collection. 4. Fluid level within sphenoid sinuses. 5. Fluid within the mastoid air cells bilaterally. Hasmukh Oakes MD Abdomen Ultrasound 11/23/16 0000 Signed Impressions: Service Date/Time: Wednesday, November 23, 2016 19:33 - CONCLUSION: 1. Somewhat limited study. Proximal superior mesenteric artery appears patent. 2. Mildly elevated flow velocities in the celiac and hepatic arteries of doubtful clinical significance. Giovani Martinez MD GI Procedure 11/21/16 0000 Signed Impressions: Service Date/Time: Monday, November 21, 2016 10:44 - CONCLUSION: ERCP as above. Reymundo Wilburn MD FACR Objective Remarks GENERAL: 86 yo female, on ventilator via trach SKIN: Warm and dry. No rash HEAD: Normocephalic. EYES: No scleral icterus. No injection or drainage. 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 NECK: Supple, trachea midline. No JVD or lymphadenopathy. Trach in place CARDIOVASCULAR: RRR. S1, S2 no S4. 2/6 systolic murmur left lower sternal border/right upper sternal border RESPIRATORY: Breath sounds equal bilaterally. No accessory muscle use. GASTROINTESTINAL: Abdomen soft, tenderness on palpation. MUSCULOSKELETAL: Trace peripheral edema Neuro: Currently on propofol for sedation. Withdraws all 4 extremities to noxious stimulation. Positive gag. 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 Date of Insertion: Nov 24, 2016 Line: Central Venous Catheter Side: Right Location: Internal, Jugular A/P Assessment and Plan Neuro/Psych: History of chronic bilateral basal ganglia CVA Acute toxic metabolic encephalopathy Prosthetic left eye On propofol as needed infusion for sedation/analgesia while intubated Goal of RASS -2 Daily sedation vacation. MRI brain 11/27 showed moderate small vessel disease, old bilateral basal ganglia CVA however no acute findings. Evaluated by Dr. Roque - neurology Continue amitriptyline 10 mg at night Acetaminophen 650 mg by tube every 6 hours. Fever Pulm: Acute hypoxemic respiratory failure- Extubated and reintubated on 11/30 History of COPD ACV 18/650/5/35 Ventilator bundle. s/p trach 12/06 Albuterol/ipratropium aerosols every 6 hours with albuterol aerosols every 2 hours as needed for dyspnea Place on Solumederol 40mg Q8 Continue with vent support and maintain sat >92%. SBT daily as adelina. CT chest 11/20: Severe underlying emphysema. Status post median sternotomy with postsurgical changes. CT thorax 11/30 revealed severe emphysema. Bilateral upper and lower lobe infiltrates/glass ground likely aspiration. CV: Systolic heart failure - likely chronic ejection fraction 40% Severe sepsis Atrial Fibrillation w/ RVR - normal sinus rhythm History of hypertension Severe pulmonary hypertension likely group 3 secondary to COPD PAD history of bilateral CEA Currently on diltiazem 30 mg by mouth every 6 hours. Echo from 11/26 EF 40%, mild MR. Moderate AR/TR. Severe pulmonary HTN (PAP 70mmHg) ASA 81 mg daily held in light of GI bleeding Continue Atorvastatin 80 mg daily RENAL//FEN: Acute kidney injury resolved Monitor renal function, I/O's, avoid nephrotoxins, will need K replacement today. Nephrology is following- Dr. 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 Gastroesophageal reflux disease Transaminitis Hyperammonia Constipation NPO for PEG tube placement today- Glucerna 1.5 on hold. KUB abdomen 12/07: Improved mild adynamic ileus bowel gas pattern. KUB 12/04 revealed mild ileus. 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 Mild head pancreatitis possible in the proper clinical setting. Patient has recently had ERCP and bile duct stone extraction. Bibasilar pneumonia developing. Tiny pleural effusion on the right US abdomen: Proximal superior mesenteric artery appears patent. Currently on lactulose 30 cc twice a day. Ammonia level 42 on 12/06 On ursodiol 300 mg by mouth twice daily. Resume when clinically indicated On metoclopramide per Dr. Polanco for bowel prokinetic medication ID: MRSA pneumonia Continue with abx per ID (piperacillin/tazobactam/fluconazole/Zyvox) Monitor for signs of infections ( Fever, WBC) Check sputum cx today Pertinent cultures BC 11/24: NGTD . Blood cultures 11/29 -no growth C. difficile negative 12/01 12/03 - blood cultures 2 - no growth 12/03, 12/07 - sputum - MRSA Heme: Leukocytosis..trending down Normocytic anemia Thrombocytopenia Monitor CBC Status post 2 units PRBCs 11/28. 1 unit PRBCs 12/01 Hemoccult stool 11/30 positive HIT negative Endo: SSI with accuchecks with Novulin R every 4 hours GI prophylaxis- Pantoprazole 40mg IV twice a day DVT prophylaxis- Enoxaparin 30mg daily held in light of GI bleed, thrombocytopenia Lines: peripheral IV's Level 3 Marian Rodríguez MD Dec 10, 2016 10:26
[2016-12-10] MEDS ORDERED: PROPOFOL 200 MG/20 ML AMP IV ONE (12:00)
[2016-12-10] MEDS: methylPREDNISolone SOD SUCC 40 MG/1 ML VIAL IV PUSH SCH ×2 (12:27→18:11)
[2016-12-10] MEDS: FLUCONAZOLE 400 MG PREMIX BAG 200 ML IV SCH (12:27)
--- NOTE | 2016-12-10 12:42 | HHI.PR ---
Subjective Subjective Notes Awaiting PEG placement today. Ventilating via trach. Having small loose stools. Objective Vitals/I&O Vital Signs Date Time Temp Pulse Resp B/P (MAP) Pulse Ox O2 Delivery O2 Flow Rate FiO2 12/10/16 09:42 98 35 12/10/16 06:00 76 12/10/16 04:00 97.6 16 136/60 (85) Labs Laboratory Tests Test 12/10/16 08:25 White Blood Count 10.2 Red Blood Count 3.03 Hemoglobin 8.5 Hematocrit 25.1 Mean Corpuscular Volume 83.0 Mean Corpuscular Hemoglobin 27.9 Mean Corpuscular Hemoglobin Concent 33.7 Red Cell Distribution Width 17.0 Platelet Count 45 Mean Platelet Volume 10.6 Neutrophils (%) (Auto) 88.7 Lymphocytes (%) (Auto) 6.9 Monocytes (%) (Auto) 3.1 Eosinophils (%) (Auto) 0.7 Basophils (%) (Auto) 0.6 Neutrophils # (Auto) 9.1 Lymphocytes # (Auto) 0.7 Monocytes # (Auto) 0.3 Eosinophils # (Auto) 0.1 Basophils # (Auto) 0.1 CBC Comment AUTO DIFF Differential Total Cells Counted 100 Neutrophils % (Manual) 83 Band Neutrophils % 11 Lymphocytes % 4 Monocytes % 2 Neutrophils # (Manual) 9.6 Differential Comment FINAL DIFF MANUAL Platelet Estimate LOW Platelet Morphology Comment ENLARGED Acanthocytes 1+ Keratocytes OCC Blood Urea Nitrogen 9 Creatinine 0.67 Random Glucose 77 Calcium Level 8.3 Sodium Level 140 Potassium Level 3.0 Chloride Level 109 Carbon Dioxide Level 18.8 Anion Gap 12 Estimat Glomerular Filtration Rate 83 Date/Time Source Procedure Growth Status 12/03/16 15:25 Blood Peripheral Aerobic Blood Culture - Final NO GROWTH IN 5 DAYS Complete 12/03/16 15:25 Blood Peripheral Anaerobic Blood Culture - Final NO GROWTH IN 5 DAYS Complete 11/30/16 23:00 Stool Stool Stool Occult Blood (MAXINE) - Final HEMOCCULT POSITIVE Complete 12/07/16 10:41 Sputum Endotracheal Gram Stain - Final Complete 12/07/16 10:41 Sputum Culture - Final S. Aureus Mrsa Complete Radiology Last Impressions Chest X-Ray 9/16/17 0000 Signed Impressions: Service Date/Time: Thursday, November 24, 2016 11:57 - CONCLUSION: 1. Interval placement of nasogastric catheter with tip beyond the GE junction omitted from the image. 2. Persistent diffuse coarse interstitial prominence likely reflecting interstitial edema/pneumonia superimposed on chronic interstitial changes. 3. Stable mild bibasilar airspace disease, likely atelectasis. Sam Buckner MD Abdomen/Pelvis CT 11/23/16 0000 Signed Impressions: Service Date/Time: Wednesday, November 23, 2016 21:46 - CONCLUSION: 1. 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 2. Mild head pancreatitis possible in the proper clinical setting. Patient has recently had ERCP and bile duct stone extraction. 3. Bibasilar pneumonia developing. Tiny pleural effusion on the right. 4. Chronic findings otherwise. Giovani Martinez MD Abdomen Ultrasound 11/23/16 0000 Signed Impressions: Service Date/Time: Wednesday, November 23, 2016 19:33 - CONCLUSION: 1. Somewhat limited study. Proximal superior mesenteric artery appears patent. 2. Mildly elevated flow velocities in the celiac and hepatic arteries of doubtful clinical significance. Giovani Martinez MD GI Procedure 11/21/16 0000 Signed Impressions: Service Date/Time: Monday, November 21, 2016 10:44 - CONCLUSION: ERCP as above. Reymundo Wilburn MD FACR Chest CT 11/20/16 1407 Signed Impressions: Service Date/Time: Sunday, November 20, 2016 15:13 - CONCLUSION: 1. Severe underlying emphysema. 2. Status post median sternotomy with postsurgical changes. Maikol Paredes MD Narrative Exam Ventilated Trach in place no bleeding Abd: soft, inc c/d/i, NGT in place, mod distention A/P Assessment and Plan 86 yo F POD 16 s/p ex lap right colectomy, cholecystectomy, for cecal volvulus and common duct stones, s/p trach Ongoing critical care support. PEG today. She has not been tolerating enteral feeding well. On reglan. Bryant Polanco MD Dec 10, 2016 12:42
--- NOTE | 2016-12-10 14:58 | GIPROC ---
[facility] [address] [facility]. [facility], [address] EGD WITH PEG PROCEDURE REPORT EXAM DATE: 12/10/2016 PATIENT NAME: Brea Forde MR#: [id number] BIRTHDATE: 1930 ATTENDING: Rosette Blackman MD ORDER #: [id number] BUTANE COMPRESSOR OPERATOR: Nataliya Lacey RN and Lucius Varela RN STATUS: inpatient INDICATIONS: The patient is a 86 yr old female here for an EGD with PEG due to dysphagia PROCEDURE PERFORMED: EGD with PEG placement MEDICATIONS: None and Per Anesthesia. TOPICAL ANESTHETIC: none CONSENT: The patient understands the risks and benefits of the procedure and understands that these risks include, but are not limited to: sedation, allergic reaction, infection, perforation and/or bleeding. Alternative means of evaluation and treatment include, among others: physical exam, x-rays, and/or surgical intervention. The patient elects to proceed with this endoscopic procedure. medical equipment was checked for proper function. Hand hygiene and appropriate measures for infection prevention was taken. After the risks, benefits and alternatives of the procedure were thoroughly explained, Informed consent was verified, confirmed and timeout was successfully executed by the treatment team. The patient was anesthetized with topical anesthesia and the endoscope was introduced through the mouth and advanced to the second portion of the duodenum. The instrument was slowly withdrawn as the mucosa was fully examined. The stomach was then inflated with air, and by a combination of transillumination and manual palpation, the site for the gastrostomy tube placement was selected and marked on the anterior abdominal wall. The skin of the anterior abdomen was surgically prepped and draped with sterile towels. Utilizing strict sterile technique, the selected site was then anesthetized with 1% xylocaine by injection into the skin and subcutaneous tissue. A 1 cm incision was made through the skin and subcutaneous tissue, and the needle/cannula assembly was then passed through the abdominal wall and through the anterior wall of the stomach, maintaining visualization with the endoscope. A snare device previously placed through the instrument channel was then opened and placed around the cannula, the needle was removed, and the insertion wire was passed through the cannula and into the stomach lumen. The snare was then loosened from the cannula, and repositioned to snare the insertion wire. The snare was then pulled up to the endoscope distal tip, and the scope was then withdrawn bringing with it the snare and insertion wire. The insertion wire was then released from the snare, and then loop-attached to the gastrostomy tube. Using the "pull technique", the G-tube was then pulled into place by traction on the insertion wire at the abdominal wall end. The G-tube insertion site was then cleansed once again, and the external bolster was placed over the tube to secure it to the abdominal wall. A sterile dressing was then applied, and the procedure terminated. a hiatal hernia The gastroscope was then slowly withdrawn and removed. ADVERSE EVENT: There were no complications. IMPRESSIONS: A hiatal hernia 200 cc of gastric juice suctioned RECOMMENDATIONS: 1. Anti-reflux regimen 2. s/p peg placement 2. Begin feeding tomorrow REPEAT EXAM: procedure as needed ok to use peg for medications only today abdominal binder Rosette Blackman MD eSigned: Rosette Blackman MD 12/10/2016 2:58 PM cc: PATIENT NAME: Brea Forde MR#: [id number]
[2016-12-10] MEDS ORDERED: DO NOT ADM ANY ANTICOAGULANT DRUGS PRN (15:30)
[2016-12-10] MEDS: PIPERACIL-TAZO 3.375 GM PREMIX 50 ML IV SCH ×2 (16:09→20:37)
[2016-12-10] MEDS: RESP: ALBUTEROL 2.5 MG/3 ML NEB (PRN) NEB ×2 (16:49→21:41)
[2016-12-10] MEDS: POTASSIUM CHLOR 20 MEQ PREMIX 100 ML IV PRN ×3 (18:11→22:19)
[2016-12-10] MEDS: PROPOFOL 1000 MG/100 ML INJ 100 ML IV PRN (18:12)
[2016-12-10] MEDS: ATORVASTATIN 80 MG TAB PO SCH (20:37)
[2016-12-11] VITALS (21 sets, daily range): BP systolic 102–133; BP diastolic 50–60; PULSE 75–91; RESP 14–22; TEMP 97–98.4; O2SAT 98–100
[2016-12-11] MEDS: INSULIN NovoLIN REGULAR SUPPLEMENTAL SCALE SQ SCH ×6 (00:15→20:15)
[2016-12-11] MEDS: POTASSIUM CHLOR 20 MEQ PREMIX 100 ML IV PRN (00:22)
[2016-12-11] MEDS: LINEZOLID 600 MG PREMIX 300 ML IV SCH ×2 (02:28→14:51)
[2016-12-11] MEDS: PIPERACIL-TAZO 3.375 GM PREMIX 50 ML IV SCH ×4 (02:28→20:52)
[2016-12-11] MEDS: DILTIAZEM HCL 30 MG TAB PO SCH ×6 (02:28→22:59)
[2016-12-11] MEDS: methylPREDNISolone SOD SUCC 40 MG/1 ML VIAL IV PUSH SCH ×3 (02:28→19:12)
[2016-12-11] MEDS: PROPOFOL 1000 MG/100 ML INJ 100 ML IV PRN (02:30)
[2016-12-11] MEDS: ARTIFICIAL TEARS OPTH SOLN 15 ML BTL LEFT EYE SCH ×3 (05:08→20:55)
[2016-12-11] MEDS: METOCLOPRAMIDE HCL 10 MG/2 ML VIAL IV PUSH SCH ×3 (05:09→20:53)
[2016-12-11 06:06] LABS: AUTOMATED NEUTROPHIL # 15.2 TH/MM3 (1.8-7.7); BASOPHIL % 0.1 % (0.0-2.0); EOSINOPHIL % 0.1 % (0.0-4.0); HEMATOCRIT 21.8 % (35.0-46.0); LYMPH % 4.6 % (9.0-44.0); LYMPHOCYTE # 0.7 TH/MM3 (1.0-4.8); MEAN CORPUSCULAR HEMOGLOBIN 27.5 PG (27.0-34.0); MEAN CORPUSCULAR HGB CONC 33.2 % (32.0-36.0); NEUT % 94.2 % (16.0-70.0); PLATELET COUNT 37 TH/MM3 (150-450); RED BLOOD COUNT 2.63 MIL/MM3 (4.00-5.30); RED CELL DISTRIBUTION WIDTH 16.6 % (11.6-17.2); WHITE BLOOD COUNT 16.1 TH/MM3 (4.0-11.0)
[2016-12-11 06:30] LABS: HEMO FLAGS AUTO DIFF
[2016-12-11 06:52] LABS: BICARBONATE 18.8 MEQ/L (21.0-32.0); MAGNESIUM 1.5 MG/DL (1.5-2.5); POTASSIUM 4.3 MEQ/L (3.5-5.1)
[2016-12-11 08:13] LABS: ACANTHOCYTES 1+ (NORMAL); KERATOCYTES OCC (NORMAL); PLATELET ESTIMATE SMEAR LOW (NORMAL); PLATELET MORPHOLOGY ENLARGED (NORMAL); SCAN/DIFF AUTO DIFF CONFIRMED
[2016-12-11] MEDS: LACTULOSE SYRUP 20 GM/30 ML CUP NG SCH ×2 (08:22→20:52)
[2016-12-11] MEDS: SODIUM CHLORIDE 0.9% FLUSH 10 ML FLUSH IV FLUSH SCH ×2 (08:23→20:53)
[2016-12-11] MEDS: SODIUM BICARBONATE 325 MG TAB NG SCH ×3 (08:23→17:18)
[2016-12-11] MEDS: URSODIOL 300 MG CAP PO SCH ×2 (08:23→20:54)
[2016-12-11] MEDS: PANTOPRAZOLE SODIUM 40 MG VIAL IV PUSH SCH ×2 (08:23→20:53)
--- NOTE | 2016-12-11 10:22 | HHI.CCPN ---
Subjective Remarks/Hospital Course 86 y/o woman developed worsening SOB this afternoon associated with marked leukocytosis. Recent biliary instrumentation for obstruction 48 hours ago and probable sepsis. On appropriate antibiotics. Requiring NRBM now for oxygenation to 97%. Visibly labored breathing. CXR with interstitial edema. EF 35% 2014. Move to ICU. 11/24: Patient s/p colonoscopy this morning which showed mod. diverticulosis in sigmoid colon and hemorrhoids. Remains on NRB with good sats. Afebrile. Cr increased 1.51 from 1.08. 11/25 Patient s/p Ex lap, right colectomy and cholecystectomy. She kept intubated postop went into Afib with RVR overnight and placed on Cardizem drip 10mg/hr. 11/26 Patient is sedated with Diprivan, fentanyl and intubated. Afebrile. On Cardizem drip 5mg/hr. renal function worse with Cr: 2.01 from 1.89, UOP: 1L in 24 hrs 11/27 Patient remains sedated and intubated. Off Cardizem drip. Renal function is improving with Cr: 1.67 from 2.01. Afebrile. 11/28 remains intubated sedated. Heart rate controlled. Creat 1.26. Hb 6.5. Status post 2 units PRBC today. WBC count decreased from 40,000-26,000. Creat improving 1.26 11/29: Patient A. fib with RVR currently on diltiazem drip at 15 mg an hour for rate control. Hemodynamically stable. 11/30: Heart rate better controlled today. Diltiazem drip discontinued overnight. Heart rate currently in the 70s. Tolerated PSV trials yesterday. We'll attempt extubation today if tolerates. No bowel movement. Tolerating tube feeds at 30 cc an hour 12/01: Tmax 101.7. Failed extubation trial after 1 hour yesterday. Persistently hypotensive post intubation. Transfuse 1 unit hemoglobin yesterday for melena per RN. Hemoglobin went from 7.5-11.3. CVP is 12. Enoxaparin will be held. CT thorax, abdomen and pelvis performed now. Lactate pending. Serial hemoglobins. GI consult for EGD 12/03: Patient remains sedated with Diprivan and Fentanyl and intubated. On Levophed 4 mics, Cardizem drip 2.5mg/hr. For EGD today 12/04 Patient is sedated and intubated. s/p EGD yesterday showed gastritis, no active bleeding. Remains on Cardizem 2.5mg/hr and Levophed 3 mics. Afebrile. Subjective 12/05: Afebrile. Hemoglobin stable. Off norepinephrine and diltiazem drips. Creatinine stabilizing. 12/06: No acute events reported overnight. Plan for tracheostomy at 10 AM today. Platelet count is 68,000, discussed this with Dr. Polanco. HIT screen ordered yesterday pending 12/07 Patient s/p trach yesterday sedated with Diprivan. Afebrile. 12/08 Patient is on ventilator via trach, T: 100.8 at 4am. 12/09 No events overnight sedated with Diprivan and intubated. Afebrile. 12/10 Patient remains sedated and intubated, for PEG tube placement today. 12/11 s/p PEG tube placement yesterday. Sedated with Diprivan and intubated. Objective Vital Signs Date Time Temp Pulse Resp B/P (MAP) Pulse Ox O2 Delivery O2 Flow Rate FiO2 12/11/16 09:55 100 35 12/11/16 04:00 97.1 83 22 128/58 (81) Intake and Output 12/11/16 12/11/16 12/12/16 08:00 16:00 00:00 Intake Total 750 ml Output Total 450 ml Balance 300 ml Result Diagram: 12/11/16 0555 12/11/16 0555 Other Results Laboratory Tests Test 12/11/16 05:55 White Blood Count 16.1 TH/MM3 Red Blood Count 2.63 MIL/MM3 Hemoglobin 7.2 GM/DL Hematocrit 21.8 % Mean Corpuscular Volume 83.0 FL Mean Corpuscular Hemoglobin 27.5 PG Mean Corpuscular Hemoglobin Concent 33.2 % Red Cell Distribution Width 16.6 % Platelet Count 37 TH/MM3 Mean Platelet Volume 11.6 FL Neutrophils (%) (Auto) 94.2 % Lymphocytes (%) (Auto) 4.6 % Monocytes (%) (Auto) 1.0 % Eosinophils (%) (Auto) 0.1 % Basophils (%) (Auto) 0.1 % Neutrophils # (Auto) 15.2 TH/MM3 Lymphocytes # (Auto) 0.7 TH/MM3 Monocytes # (Auto) 0.2 TH/MM3 Eosinophils # (Auto) 0.0 TH/MM3 Basophils # (Auto) 0.0 TH/MM3 CBC Comment AUTO DIFF Differential Comment AUTO DIFF CONFIRMED Platelet Estimate LOW Platelet Morphology Comment ENLARGED Acanthocytes 1+ Keratocytes OCC Blood Urea Nitrogen 16 MG/DL Creatinine 0.87 MG/DL Random Glucose 130 MG/DL Calcium Level 7.9 MG/DL Phosphorus Level 3.4 MG/DL Magnesium Level 1.5 MG/DL Sodium Level 138 MEQ/L Potassium Level 4.3 MEQ/L Chloride Level 110 MEQ/L Carbon Dioxide Level 18.8 MEQ/L Anion Gap 9 MEQ/L Estimat Glomerular Filtration Rate 62 ML/MIN Imaging Last Impressions Chest X-Ray 12/09/16 0000 Signed Impressions: Service Date/Time: Friday, December 09, 2016 11:08 - CONCLUSION: 1. Consolidation of the left lower lobe stable compared to previous. 2. Tracheostomy and NG tube in satisfactory position. 3. Diffuse interstitial prominence similar to previous. Ben Wilburn MD Abdomen X-Ray 12/07/16 0000 Signed Impressions: Service Date/Time: Wednesday, December 07, 2016 10:02 - CONCLUSION: 1. Improved mild adynamic ileus bowel gas pattern. Sam Buckner MD Chest CT 12/01/16 0000 Signed Impressions: Service Date/Time: Thursday, December 01, 2016 08:13 - CONCLUSION: 1. Severe emphysema with bilateral airspace consolidation in a patchy distribution involving the upper and lower lobes but most severe in the left lower lobe. There is also a trace left pleural effusion. Imaging findings are nonspecific but infection or aspiration should be considerations. 2. Coronary artery calcification. Giovani Lopez MD Abdomen/Pelvis CT 12/01/16 0000 Signed Impressions: Service Date/Time: Thursday, December 01, 2016 08:13 - CONCLUSION: 1. No acute finding is identified to explain the blood in stool. There are postsurgical findings suggesting prior right hemicolectomy. Colon contains a fluid and air and there is sigmoid diverticulosis. 2. Small volume of free fluid in the abdomen and pelvis. Also, there is mild diffuse subcutaneous edema. Giovani Lopez MD Head CT 11/27/16 0000 Signed Impressions: Service Date/Time: Sunday, November 27, 2016 14:47 - CONCLUSION: 1. Questionable edema or subacute infarct in the left parietal deep white matter. This would be better evaluated with MRI. No intracranial hemorrhage or significant mass effect. Romario Kauffman MD Brain MRI 11/27/16 0000 Signed Impressions: Service Date/Time: Sunday, November 27, 2016 18:10 - CONCLUSION: 1. Moderate periventricular and subcortical white matter small vessel ischemic changes bilaterally. 2. 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 3. No acute infarct, acute hemorrhage, mass effect or extra-axial fluid collection. 4. Fluid level within sphenoid sinuses. 5. Fluid within the mastoid air cells bilaterally. Hasmukh Oakes MD Abdomen Ultrasound 11/23/16 0000 Signed Impressions: Service Date/Time: Wednesday, November 23, 2016 19:33 - CONCLUSION: 1. Somewhat limited study. Proximal superior mesenteric artery appears patent. 2. Mildly elevated flow velocities in the celiac and hepatic arteries of doubtful clinical significance. Giovani Martinez MD GI Procedure 11/21/16 0000 Signed Impressions: Service Date/Time: Monday, November 21, 2016 10:44 - CONCLUSION: ERCP as above. Reymundo Wilburn MD FACR Objective Remarks GENERAL: 86 yo female, on ventilator via trach SKIN: Warm and dry. No rash HEAD: Normocephalic. EYES: No scleral icterus. No injection or drainage. 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 NECK: Supple, trachea midline. No JVD or lymphadenopathy. Trach in place CARDIOVASCULAR: RRR. S1, S2 no S4. 2/6 systolic murmur left lower sternal border/right upper sternal border RESPIRATORY: Breath sounds equal bilaterally. No accessory muscle use. GASTROINTESTINAL: Abdomen soft, tenderness on palpation. MUSCULOSKELETAL: Trace peripheral edema Neuro: Currently on propofol for sedation. Withdraws all 4 extremities to noxious stimulation. Positive gag. 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 Date of Insertion: Nov 24, 2016 Line: Central Venous Catheter Side: Right Location: Internal, Jugular A/P Assessment and Plan Neuro/Psych: History of chronic bilateral basal ganglia CVA Acute toxic metabolic encephalopathy Prosthetic left eye On propofol as needed infusion for sedation/analgesia while intubated Goal of RASS -2 Daily sedation vacation. MRI brain 9/19 showed moderate small vessel disease, old bilateral basal ganglia CVA however no acute findings. Evaluated by Dr. Roque - neurology Continue amitriptyline 10 mg at night Acetaminophen 650 mg by tube every 6 hours. Fever Pulm: Acute hypoxemic respiratory failure- Extubated and reintubated on 11/30 History of COPD ACV 18/650/5/35 Ventilator bundle. s/p trach 12/06 Albuterol/ipratropium aerosols every 6 hours with albuterol aerosols every 2 hours as needed for dyspnea Solumederol 40mg Q8 Continue with vent support and maintain sat >92%. SBT daily as adelina. CT chest 11/20: Severe underlying emphysema. Status post median sternotomy with postsurgical changes. CT thorax 11/30 revealed severe emphysema. Bilateral upper and lower lobe infiltrates/glass ground likely aspiration. CV: Systolic heart failure - likely chronic ejection fraction 40% Severe sepsis Atrial Fibrillation w/ RVR - normal sinus rhythm History of hypertension Severe pulmonary hypertension likely group 3 secondary to COPD PAD history of bilateral CEA On diltiazem 30 mg by mouth every 6 hours. Echo from 11/26 EF 40%, mild MR. Moderate AR/TR. Severe pulmonary HTN (PAP 70mmHg) ASA 81 mg daily held in light of GI bleeding Continue Atorvastatin 80 mg daily RENAL//FEN: Acute kidney injury resolved Monitor renal function, I/O's, avoid nephrotoxins, Nephrology is following- Dr. 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 Gastroesophageal reflux disease Transaminitis Hyperammonia Constipation s/p PEG tube placement 12/10- Resume tube feeds if ok with GI -Glucerna 1.5 with goals rate 45ml/hr KUB abdomen 12/07: Improved mild adynamic ileus bowel gas pattern. KUB 12/04 revealed mild ileus. 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 Mild head pancreatitis possible in the proper clinical setting. Patient has recently had ERCP and bile duct stone extraction. Bibasilar pneumonia developing. Tiny pleural effusion on the right US abdomen: Proximal superior mesenteric artery appears patent. Currently on lactulose 30 cc twice a day. Ammonia level 42 on 12/06 On ursodiol 300 mg by mouth twice daily. Resume when clinically indicated On metoclopramide per Dr. Polanco for bowel prokinetic medication ID: MRSA pneumonia Continue with abx per ID (Zosyn/fluconazole/Zyvox) Monitor for signs of infections ( Fever, WBC) Pertinent cultures Sputum 102/ Sputum: MRSA BC 11/24: NGTD . Blood cultures 11/29 -no growth C. difficile negative 12/01 12/03 - blood cultures 2 - no growth 12/03, 12/07 - sputum - MRSA Heme: Leukocytosis..trending down Normocytic anemia Thrombocytopenia Monitor CBC Status post 2 units PRBCs 11/28. 1 unit PRBCs 12/01 Hemoccult stool 11/30 positive HIT negative Endo: SSI with accuchecks with Novulin R every 4 hours GI prophylaxis- Pantoprazole 40mg IV twice a day DVT prophylaxis- Enoxaparin 30mg daily held in light of GI bleed, thrombocytopenia Lines: peripheral IV's Level 3 Marian Rodríguez MD Dec 11, 2016 10:22
[2016-12-11 12:11] LABS: C. DIFF EPI 027 PRESUMPTIVE NEGATIVE (NEGATIVE)
[2016-12-11] MEDS: FLUCONAZOLE 400 MG PREMIX BAG 200 ML IV SCH (14:51)
[2016-12-11 16:12] LABS: APTT (PATIENT) 28.9 SEC (24.3-30.1); PROTHROMBIN TIME - PATIENT 11.5 SEC (9.8-11.6)
[2016-12-11 16:13] LABS: AUTOMATED NEUTROPHIL # 12.2 TH/MM3 (1.8-7.7); BASOPHIL % 0.2 % (0.0-2.0); LYMPH % 5.7 % (9.0-44.0); LYMPHOCYTE # 0.8 TH/MM3 (1.0-4.8); MEAN CELL VOLUME 82.6 FL (80.0-100.0); MEAN CORPUSCULAR HEMOGLOBIN 27.1 PG (27.0-34.0); MEAN CORPUSCULAR HGB CONC 32.8 % (32.0-36.0); MONO % 1.1 % (0.0-8.0); PLATELET COUNT 37 TH/MM3 (150-450); RED CELL DISTRIBUTION WIDTH 16.9 % (11.6-17.2); WHITE BLOOD COUNT 13.2 TH/MM3 (4.0-11.0)
[2016-12-11 16:28] LABS: HEMO FLAGS AUTO DIFF
[2016-12-11 16:31] LABS: HEMATOCRIT 19.8 % (35.0-46.0)
[2016-12-11 17:00] LABS: ACANTHOCYTES 1+ (NORMAL); KERATOCYTES OCC (NORMAL); PLATELET ESTIMATE SMEAR LOW (NORMAL); PLATELET MORPHOLOGY NORMAL (NORMAL); SCAN/DIFF AUTO DIFF CONFIRMED
--- NOTE | 2016-12-11 17:25 | HHI.PR ---
Addendum to Inpatient Note Additional Information seen around 1615 full note to follow Sharon Samayoa MD Dec 11, 2016 17:25
--- NOTE | 2016-12-11 17:34 | HHI.GIFU ---
Subjective Remarks Per RN continues to ooze blood from PEG site, requiring mult dressing changes. Again having melanotic stool. RN aspirated dark blood from PEG. Hgb dropped to 6.5. (Radha Jamil) Objective Vitals I&O Vital Signs Date Time Temp Pulse Resp B/P (MAP) Pulse Ox O2 Delivery O2 Flow Rate FiO2 12/11/16 17:08 98 35 12/11/16 14:00 83 12/11/16 13:05 98 35 12/11/16 12:00 86 12/11/16 12:00 98.0 86 22 102/55 (71) 98 12/11/16 12:00 35 12/11/16 10:00 89 12/11/16 09:55 100 35 12/11/16 08:30 100 35 12/11/16 08:00 97.5 87 21 114/56 (75) 100 12/11/16 08:00 35 12/11/16 08:00 87 12/11/16 04:29 100 35 12/11/16 04:00 35 12/11/16 04:00 97.1 83 22 128/58 (81) 100 12/11/16 00:42 100 35 12/11/16 00:00 35 12/11/16 00:00 97.2 83 21 114/53 (73) 100 12/10/16 21:36 99 35 12/10/16 20:00 97.8 77 19 110/56 (74) 100 12/10/16 20:00 35 12/10/16 18:00 74 I/O 12/10/16 12/10/16 12/10/16 12/11/16 12/11/16 12/11/16 07:00 15:00 23:00 07:00 15:00 23:00 Intake Total 430 ml 250 ml 725 ml 750 ml 150 ml Output Total 525 ml 1300 ml 450 ml 370.0 ml Balance -95 ml 250 ml -575 ml 300 ml -220.0 ml Intake Oral 0 ml 0 ml IV Total 350 ml 250 ml 600 ml 650 ml 150 ml Tube Feeding 20 ml 0 ml Other 60 ml 125 ml 100 ml Output Urine Total 525 ml 1300 ml 450 ml Tube Feeding Residual Discard 370.0 ml # Bowel Movements 1 3 4 Laboratory Laboratory Tests Test 12/11/16 05:55 12/11/16 08:40 10/3/17 15:37 White Blood Count 16.1 13.2 Red Blood Count 2.63 2.40 Hemoglobin 7.2 6.5 Hematocrit 21.8 19.8 Mean Corpuscular Volume 83.0 82.6 Mean Corpuscular Hemoglobin 27.5 27.1 Mean Corpuscular Hemoglobin Concent 33.2 32.8 Red Cell Distribution Width 16.6 16.9 Platelet Count 37 37 Mean Platelet Volume 11.6 11.3 Neutrophils (%) (Auto) 94.2 93.0 Lymphocytes (%) (Auto) 4.6 5.7 Monocytes (%) (Auto) 1.0 1.1 Eosinophils (%) (Auto) 0.1 0.0 Basophils (%) (Auto) 0.1 0.2 Neutrophils # (Auto) 15.2 12.2 Lymphocytes # (Auto) 0.7 0.8 Monocytes # (Auto) 0.2 0.1 Eosinophils # (Auto) 0.0 0.0 Basophils # (Auto) 0.0 0.0 CBC Comment AUTO DIFF AUTO DIFF Differential Comment AUTO DIFF CONFIRMED AUTO DIFF CONFIRMED Platelet Estimate LOW LOW Platelet Morphology Comment ENLARGED NORMAL Acanthocytes 1+ 1+ Keratocytes OCC OCC Blood Urea Nitrogen 16 Creatinine 0.87 Random Glucose 130 Calcium Level 7.9 Phosphorus Level 3.4 Magnesium Level 1.5 Sodium Level 138 Potassium Level 4.3 Chloride Level 110 Carbon Dioxide Level 18.8 Anion Gap 9 Estimat Glomerular Filtration Rate 62 Stool C. difficile Toxin (PCR) NEGATIVE Stl C. difficile Toxin Epiderm 027 PRESUMPTIVE NEGATIVE Prothrombin Time 11.5 Prothromb Time International Ratio 1.0 Activated Partial Thromboplast Time 28.9 Fibrinogen 500 Date/Time Source Procedure Growth Status 12/03/16 15:25 Blood Peripheral Aerobic Blood Culture - Final NO GROWTH IN 5 DAYS Complete 12/03/16 15:25 Blood Peripheral Anaerobic Blood Culture - Final NO GROWTH IN 5 DAYS Complete 11/30/16 23:00 Stool Stool Stool Occult Blood (MAXINE) - Final HEMOCCULT POSITIVE Complete 12/10/16 11:25 Sputum Endotracheal Gram Stain - Final Resulted 12/10/16 11:25 Sputum Culture - Preliminary S. Aureus Mrsa Gram Negative Aditya Resulted Imaging Last Impressions Chest X-Ray 12/09/16 0000 Signed Impressions: Service Date/Time: Friday, December 09, 2016 11:08 - CONCLUSION: 1. Consolidation of the left lower lobe stable compared to previous. 2. Tracheostomy and NG tube in satisfactory position. 3. Diffuse interstitial prominence similar to previous. Ben Wilburn MD Abdomen X-Ray 12/07/16 Signed Impressions: Service Date/Time: Wednesday, December 07, 2016 10:02 - CONCLUSION: 1. Improved mild adynamic ileus bowel gas pattern. Sam Buckner MD Chest CT 12/01/16 Signed Impressions: Service Date/Time: Thursday, December 01, 2016 08:13 - CONCLUSION: 1. Severe emphysema with bilateral airspace consolidation in a patchy distribution involving the upper and lower lobes but most severe in the left lower lobe. There is also a trace left pleural effusion. Imaging findings are nonspecific but infection or aspiration should be considerations. 2. Coronary artery calcification. Giovani Lopez MD Abdomen/Pelvis CT 12/01/16 Signed Impressions: Service Date/Time: Thursday, December 01, 2016 08:13 - CONCLUSION: 1. No acute finding is identified to explain the blood in stool. There are postsurgical findings suggesting prior right hemicolectomy. Colon contains a fluid and air and there is sigmoid diverticulosis. 2. Small volume of free fluid in the abdomen and pelvis. Also, there is mild diffuse subcutaneous edema. Giovani Lopez MD Head CT 11/27/16 Signed Impressions: Service Date/Time: Sunday, November 27, 2016 14:47 - CONCLUSION: 1. Questionable edema or subacute infarct in the left parietal deep white matter. This would be better evaluated with MRI. No intracranial hemorrhage or significant mass effect. Romario Kauffman MD Brain MRI 11/27/16 Signed Impressions: Service Date/Time: Sunday, November 27, 2016 18:10 - CONCLUSION: 1. Moderate periventricular and subcortical white matter small vessel ischemic changes bilaterally. 2. 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 3. No acute infarct, acute hemorrhage, mass effect or extra-axial fluid collection. 4. Fluid level within sphenoid sinuses. 5. Fluid within the mastoid air cells bilaterally. Hasmukh Oakes MD Abdomen Ultrasound 11/23/16 Signed Impressions: Service Date/Time: Wednesday, November 23, 2016 19:33 - CONCLUSION: 1. Somewhat limited study. Proximal superior mesenteric artery appears patent. 2. Mildly elevated flow velocities in the celiac and hepatic arteries of doubtful clinical significance. Giovani Martinez MD GI Procedure 11/21/16 0000 Signed Impressions: Service Date/Time: Monday, November 21, 2016 10:44 - CONCLUSION: ERCP as above. Reymundo Wilburn MD FACR Physical Exam HEENT: Normocephalic; atraumatic; right eye prosthesis. Ventilator via trach. CHEST: CTA CARDIAC: RRR ABDOMEN: Soft, obese, mild distention, diffuse TTP, midline incision line well approximated with triston, hypoactive bowel sounds. PEG dressing moderate amt dark blood, no active oozing seen. EXTREMITIES: Trace peripheral edema. SKIN: Normal; no rash; no jaundice. 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 (Radha Jamil) Assessment and Plan Plan ASSESSMENT - Melena, Hemoccult (+). Passing melanotic/maroon stool with clots on 11/30 and 12/01. No further episodes. S/P EGD (12/03/16)---> No active bleeding, gastritis, possible NG tube trauma. HH Stable 8.8/26.4. Tolerating TF - Anemia. S/P 3 units. HH 8.8/.4. PPI - Ileus, Abdominal distention in patient with recent right colectomy. CT scan abdomen and pelvis without contrast (12/01/16)----> No acute finding is identified to explain the blood in the stool. There are postsurgical findings suggesting prior right hemicolectomy. Colon contains a fluid and air and there is sigmoid diverticulosis. KUB 12/04-- revealed mild ileus. KUB abdomen 12/07--Improved mild adynamic ileus bowel gas pattern. Reglan. + Liquid stool - Diarrhea. CDiff negative. - Recent cecal volvulus, S/p exploratory laparotomy with right colectomy, cholecystomy, for cecal volvulus and gallstones and CBD stones (11/24/16) with Dr. Polanco. - Choledocholithiasis. S/P ERCP with removal of stones (11/21/16)---> ampulla revealed a prior sphincterotomy, 3 stones in the major papilla, s/p stone extraction with balloon sweep several times. LFT stable. T. Bili normal. - Thrombocytopenia. Platelets 61 - Sepsis/Leukocytosis, Blood cx 12/03 no growth in 4/5 days. Sputum 12/03, MRSA. WBC 11.8. ID following. Zosyn/Diflucan. - Respiratory failure, COPD, pulmonary htn. On CPAP. Per [facility] - Acute kidney injury with electrolyte abnormalities. Creat 0.76. Renal following. - Afib, Systolic heart failure. Anticoagulation is on hold secondary to GI bleeding. - PAD, CVA per attending. 12/08/16--GI consulted for PEG tube placement 12/11/16 - melena, dark blood aspirated from PEG, saturating PEG dressings dark blood. Hgb dropped to 6.5, PLT 37. INR 1. PLAN - hold TF for now - PRBC, FFP, plt transfusion - Continue PPI - Cont. Reglan - Monitor labs - Supportive care This pt seen by myself and Dr Blackman and this note is written on her behalf (Radha Jamil) Physician Comments seen, examined agree with above minimal bleeding from peg vit k platelets prbc ffp if active bleeding bleeding scan may need conversion to g/j tube if not tolerating gtube feeding (Rosette Blackman MD) Radha Jamil Dec 11, 2016 17:34 Rosette Blackman MD Dec 11, 2016 19:38
--- NOTE | 2016-12-11 18:48 | HHI.HCPN ---
Reason for visit a. To assist with evaluation and management of symptoms including: Dyspnea, encephalopathy, pain, N/V b. To assist medical decision maker(s) with: better understanding of current medical conditions; weighing benefits/burdens of medical treatment options; making medical treatment decisions. . Subjective/Interval History Patient seen and assessed in room 527 status post tracheostomy on 12/06/2016. Patient underwent PEG tube placement on 12/10/16. No bleeding was noted at that time. However, nursing reports blood per PEG tube, blood oozing from PEG tube site, and dark stool. Hg this AM dropped to 6.5. GI has recommended holding tube feeds for the time being. Transfusion of packed red blood cells and FFP has been ordered. CPAP trial lasted less than 15 minutes with respiratory rate increasing to the 50s per nursing staff. Sedation vacation also attempted with respiratory rate also increasing. Patient back on propofol and on full vent support. Withdraws to noxious stimuli, otherwise unresponsive. Not currently on opiates. Nursing reports that family has visited and has been updated on patient's current status. WBC: 13.2, hemoglobin 6.5 , platelets 37 HIT negative. Sodium: 138, potassium 4.3, chloride 110, carbon dioxide 18.8, glucose 130 Renal function good Afebrile. Patient remains on Zosyn, Fluconazole and Vancomycin. == 12/10/16 sputum positive for MRSA and a gram-negative aditya == 12/07/16: Sputum positive for MRSA = 12/03/16: Sputum positive sign MRSA = 12/03/16: Blood cultures 2 with no growth. = 12/01/16 C. difficile negative . . Family/friend interactions No palliative care interaction with family today. Have requested that nurses telephone me on 12/12/16 if/when family arrives. . Advance Directives Living Will: Copy in medical record Health Care Surrogate: Copy in medical record Advance Directive Specifics Date completed: 04/26/2016 . Health Care Surrogate(s): Patient's and son are designated as health care surrogate decision makers. . Documented care wishes: A living will was completed on 04/26/2016 and is accessible and the patient's EMR. Patient states if at any time she should suffer from a terminal condition , persistent vegetative state or incurable affliction, and if her attending has determined that there can be no recovery from such condition and the application of life prolonging procedures would serve only to artificially prolong the dying process, the patient directs that such procedures be withheld are withdrawn, and that she be permitted to naturally with only the administration of medication and/or the performance of any medical procedure deemed necessary to provide her with comfort care order or alleviate pain. She states she desires that nutrition and hydration be withheld are withdrawn when application of such procedure would serve only to perform long artificially the process of dying. . Objective Vital Signs Date Time Temp Pulse Resp B/P (MAP) Pulse Ox O2 Delivery O2 Flow Rate FiO2 12/11/16 17:08 98 35 12/11/16 14:00 83 12/11/16 13:05 98 35 12/11/16 12:00 86 12/11/16 12:00 98.0 86 22 102/55 (71) 98 12/11/16 12:00 35 12/11/16 10:00 89 12/11/16 09:55 100 35 12/11/16 08:30 100 35 12/11/16 08:00 97.5 87 21 114/56 (75) 100 12/11/16 08:00 35 12/11/16 08:00 87 12/11/16 04:29 100 35 12/11/16 04:00 35 12/11/16 04:00 97.1 83 22 128/58 (81) 100 12/11/16 00:42 100 35 12/11/16 00:00 35 12/11/16 00:00 97.2 83 21 114/53 (73) 100 12/10/16 21:36 99 35 12/10/16 20:00 97.8 77 19 110/56 (74) 100 12/10/16 20:00 35 Intake & Output 12/11/16 12/11/16 07:00 19:00 Intake Total 1000 ml 150 ml Output Total 450 ml 370.0 ml Balance 550 ml -220.0 ml Intake Oral 0 ml IV Total 900 ml 150 ml Tube Feeding 0 ml Other 100 ml Output Urine Total 450 ml Tube Feeding Residual Discard 370.0 ml # Bowel Movements 4 . Physical Exam CONSTITUTIONAL/GENERAL: This is an adequately nourished patient, elderly female patient currently sedated with propofol on mechanical ventilator status post tracheostomy and PEG tube placement TUBES/LINES/DRAINS: Castillo catheter, , peripheral IVs; soft restraints, tracheostomy SKIN: No jaundice, rashes, or lesions. Ecchymoses on upper extremities. Bruising and edema noted on upper extremities bilaterally. HEAD: Atraumatic. Normocephalic. 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 No scleral icterus. No injection or drainage. Fundi not examined. ENT: Nose without bleeding or purulent drainage. No bright red blood or dried blood seen in oropharynx. NECK: Supple, trachea midline. CARDIOVASCULAR: Irregular. + Murmur RESPIRATORY/CHEST: Status post tracheostomy on mechanical ventilator No accessory muscles used GASTROINTESTINAL: Status post exploratory laparotomy. PEG tube in place--no active bleeding seen at this time. GENITOURINARY: Without palpable bladder distension. Castillo catheter in place. MUSCULOSKELETAL: Extremities without clubbing, cyanosis. + Peripheral edema. Moderate edema in upper extremities bilaterally LYMPHATICS: Not examined NEUROLOGICAL: Sedated on propofol, attempting to wean. Withdraws to noxious stimuli, otherwise unresponsive. PSYCHIATRIC: Unable to assess secondary to patient's clinical condition . Diagnostic Tests Laboratory Laboratory Tests Test 12/08/16 18:55 12/09/16 03:30 12/09/16 11:59 12/10/16 08:25 Potassium Level 3.3 MEQ/L (3.5-5.1) 4.5 MEQ/L (3.5-5.1) 3.0 MEQ/L (3.5-5.1) White Blood Count 10.8 TH/MM3 (4.0-11.0) 10.2 TH/MM3 (4.0-11.0) Red Blood Count 3.12 MIL/MM3 (4.00-5.30) 3.03 MIL/MM3 (4.00-5.30) Hemoglobin 8.8 GM/DL (11.6-15.3) 8.5 GM/DL (11.6-15.3) Hematocrit 26.3 % (35.0-46.0) 25.1 % (35.0-46.0) Mean Corpuscular Volume 84.2 FL (80.0-100.0) 83.0 FL (80.0-100.0) Mean Corpuscular Hemoglobin 28.3 PG (27.0-34.0) 27.9 PG (27.0-34.0) Mean Corpuscular Hemoglobin Concent 33.6 % (32.0-36.0) 33.7 % (32.0-36.0) Red Cell Distribution Width 16.5 % (11.6-17.2) 17.0 % (11.6-17.2) Platelet Count 59 TH/MM3 (150-450) 45 TH/MM3 (150-450) Mean Platelet Volume 10.6 FL (7.0-11.0) 10.6 FL (7.0-11.0) Neutrophils (%) (Auto) 92.1 % (16.0-70.0) 88.7 % (16.0-70.0) Lymphocytes (%) (Auto) 4.8 % (9.0-44.0) 6.9 % (9.0-44.0) Monocytes (%) (Auto) 2.0 % (0.0-8.0) 3.1 % (0.0-8.0) Eosinophils (%) (Auto) 0.6 % (0.0-4.0) 0.7 % (0.0-4.0) Basophils (%) (Auto) 0.5 % (0.0-2.0) 0.6 % (0.0-2.0) Neutrophils # (Auto) 9.9 TH/MM3 (1.8-7.7) 9.1 TH/MM3 (1.8-7.7) Lymphocytes # (Auto) 0.5 TH/MM3 (1.0-4.8) 0.7 TH/MM3 (1.0-4.8) Monocytes # (Auto) 0.2 TH/MM3 (0-0.9) 0.3 TH/MM3 (0-0.9) Eosinophils # (Auto) 0.1 TH/MM3 (0-0.4) 0.1 TH/MM3 (0-0.4) Basophils # (Auto) 0.1 TH/MM3 (0-0.2) 0.1 TH/MM3 (0-0.2) CBC Comment DIFF FINAL AUTO DIFF Differential Comment FINAL DIFF MANUAL Blood Urea Nitrogen 9 MG/DL (7-18) 9 MG/DL (7-18) Creatinine 0.82 MG/DL (0.50-1.00) 0.67 MG/DL (0.50-1.00) Random Glucose 66 MG/DL (74-106) 77 MG/DL (74-106) Calcium Level 8.3 MG/DL (8.5-10.1) 8.3 MG/DL (8.5-10.1) Sodium Level 139 MEQ/L (136-145) 140 MEQ/L (136-145) Chloride Level 111 MEQ/L (98-107) 109 MEQ/L (98-107) Carbon Dioxide Level 20.3 MEQ/L (21.0-32.0) 18.8 MEQ/L (21.0-32.0) Anion Gap 8 MEQ/L (5-15) 12 MEQ/L (5-15) Estimat Glomerular Filtration Rate 66 ML/MIN (>89) 83 ML/MIN (>89) Blood Gas Puncture Site LT RADIAL Blood Gas Patient Temperature 98.6 Blood Gas HCO3 17 mmol/L (22-26) Blood Gas Base Excess -6.5 mmol/L (-2-2) Blood Gas Oxygen Saturation 96 % (90-100) Arterial Blood pH 7.44 (7.380-7.420) Arterial Blood Partial Pressure CO2 25 mmHg (38-42) Arterial Blood Partial Pressure O2 118 mmHg (61-120) Arterial Blood Oxygen Content 11.7 Vol % (12.0-20.0) Arterial Blood Carboxyhemoglobin 1.8 % (0-4) Arterial Blood Methemoglobin 1.2 % (0-2) Blood Gas Hemoglobin 8.5 G/DL (12.0-16.0) Oxygen Delivery Device VENTILATOR Blood Gas Ventilator Setting Blood Gas Inspired Oxygen 35 % Differential Total Cells Counted 100 Neutrophils % (Manual) 83 % (16-70) Band Neutrophils % 11 % (0-6) Lymphocytes % 4 % (9-44) Monocytes % 2 % (0-8) Neutrophils # (Manual) 9.6 TH/MM3 (1.8-7.7) Platelet Estimate LOW (NORMAL) Platelet Morphology Comment ENLARGED (NORMAL) Acanthocytes 1+ (NORMAL) Keratocytes OCC (NORMAL) Test 12/11/16 05:55 12/11/16 08:40 12/11/16 15:37 White Blood Count 16.1 TH/MM3 (4.0-11.0) 13.2 TH/MM3 (4.0-11.0) Red Blood Count 2.63 MIL/MM3 (4.00-5.30) 2.40 MIL/MM3 (4.00-5.30) Hemoglobin 7.2 GM/DL (11.6-15.3) 6.5 GM/DL (11.6-15.3) Hematocrit 21.8 % (35.0-46.0) 19.8 % (35.0-46.0) Mean Corpuscular Volume 83.0 FL (80.0-100.0) 82.6 FL (80.0-100.0) Mean Corpuscular Hemoglobin 27.5 PG (27.0-34.0) 27.1 PG (27.0-34.0) Mean Corpuscular Hemoglobin Concent 33.2 % (32.0-36.0) 32.8 % (32.0-36.0) Red Cell Distribution Width 16.6 % (11.6-17.2) 16.9 % (11.6-17.2) Platelet Count 37 TH/MM3 (150-450) 37 TH/MM3 (150-450) Mean Platelet Volume 11.6 FL (7.0-11.0) 11.3 FL (7.0-11.0) Neutrophils (%) (Auto) 94.2 % (16.0-70.0) 93.0 % (16.0-70.0) Lymphocytes (%) (Auto) 4.6 % (9.0-44.0) 5.7 % (9.0-44.0) Monocytes (%) (Auto) 1.0 % (0.0-8.0) 1.1 % (0.0-8.0) Eosinophils (%) (Auto) 0.1 % (0.0-4.0) 0.0 % (0.0-4.0) Basophils (%) (Auto) 0.1 % (0.0-2.0) 0.2 % (0.0-2.0) Neutrophils # (Auto) 15.2 TH/MM3 (1.8-7.7) 12.2 TH/MM3 (1.8-7.7) Lymphocytes # (Auto) 0.7 TH/MM3 (1.0-4.8) 0.8 TH/MM3 (1.0-4.8) Monocytes # (Auto) 0.2 TH/MM3 (0-0.9) 0.1 TH/MM3 (0-0.9) Eosinophils # (Auto) 0.0 TH/MM3 (0-0.4) 0.0 TH/MM3 (0-0.4) Basophils # (Auto) 0.0 TH/MM3 (0-0.2) 0.0 TH/MM3 (0-0.2) CBC Comment AUTO DIFF AUTO DIFF Differential Comment AUTO DIFF CONFIRMED AUTO DIFF CONFIRMED Platelet Estimate LOW (NORMAL) LOW (NORMAL) Platelet Morphology Comment ENLARGED (NORMAL) NORMAL (NORMAL) Acanthocytes 1+ (NORMAL) 1+ (NORMAL) Keratocytes OCC (NORMAL) OCC (NORMAL) Blood Urea Nitrogen 16 MG/DL (7-18) Creatinine 0.87 MG/DL (0.50-1.00) Random Glucose 130 MG/DL (74-106) Calcium Level 7.9 MG/DL (8.5-10.1) Phosphorus Level 3.4 MG/DL (2.5-4.9) Magnesium Level 1.5 MG/DL (1.5-2.5) Sodium Level 138 MEQ/L (136-145) Potassium Level 4.3 MEQ/L (3.5-5.1) Chloride Level 110 MEQ/L (98-107) Carbon Dioxide Level 18.8 MEQ/L (21.0-32.0) Anion Gap 9 MEQ/L (5-15) Estimat Glomerular Filtration Rate 62 ML/MIN (>89) Stool C. difficile Toxin (PCR) NEGATIVE (NEGATIVE) Stl C. difficile Toxin Epiderm 027 PRESUMPTIVE NEGATIVE Prothrombin Time 11.5 SEC (9.8-11.6) Prothromb Time International Ratio 1.0 RATIO Activated Partial Thromboplast Time 28.9 SEC (24.3-30.1) Fibrinogen 500 mg/dL (227-377) . Result Diagram: 12/11/16 1537 12/11/16 0555 Microbiology Microbiology Date/Time Source Procedure Growth Status 12/03/16 15:25 Blood Peripheral Aerobic Blood Culture - Final NO GROWTH IN 5 DAYS Complete 12/03/16 15:25 Blood Peripheral Anaerobic Blood Culture - Final NO GROWTH IN 5 DAYS Complete 11/30/16 23:00 Stool Stool Stool Occult Blood (MAXINE) - Final HEMOCCULT POSITIVE Complete 12/10/16 11:25 Sputum Endotracheal Gram Stain - Final Resulted 12/10/16 11:25 Sputum Culture - Preliminary S. Aureus Mrsa Gram Negative Aditya Resulted . Imaging Last Impressions Chest X-Ray 12/09/16 0000 Signed Impressions: Service Date/Time: Friday, December 09, 2016 11:08 - CONCLUSION: 1. Consolidation of the left lower lobe stable compared to previous. 2. Tracheostomy and NG tube in satisfactory position. 3. Diffuse interstitial prominence similar to previous. Ben Wilburn MD Abdomen X-Ray 12/07/16 0000 Signed Impressions: Service Date/Time: Wednesday, December 07, 2016 10:02 - CONCLUSION: 1. Improved mild adynamic ileus bowel gas pattern. Sam Buckner MD Chest CT 12/01/16 0000 Signed Impressions: Service Date/Time: Thursday, December 01, 2016 08:13 - CONCLUSION: 1. Severe emphysema with bilateral airspace consolidation in a patchy distribution involving the upper and lower lobes but most severe in the left lower lobe. There is also a trace left pleural effusion. Imaging findings are nonspecific but infection or aspiration should be considerations. 2. Coronary artery calcification. Giovani Lopez MD Abdomen/Pelvis CT 12/01/16 0000 Signed Impressions: Service Date/Time: Thursday, December 01, 2016 08:13 - CONCLUSION: 1. No acute finding is identified to explain the blood in stool. There are postsurgical findings suggesting prior right hemicolectomy. Colon contains a fluid and air and there is sigmoid diverticulosis. 2. Small volume of free fluid in the abdomen and pelvis. Also, there is mild diffuse subcutaneous edema. Giovani Lopez MD Head CT 11/27/16 0000 Signed Impressions: Service Date/Time: Sunday, November 27, 2016 14:47 - CONCLUSION: 1. Questionable edema or subacute infarct in the left parietal deep white matter. This would be better evaluated with MRI. No intracranial hemorrhage or significant mass effect. Romario Kauffman MD Brain MRI 11/27/16 0000 Signed Impressions: Service Date/Time: Sunday, November 27, 2016 18:10 - CONCLUSION: 1. Moderate periventricular and subcortical white matter small vessel ischemic changes bilaterally. 2. 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 3. No acute infarct, acute hemorrhage, mass effect or extra-axial fluid collection. 4. Fluid level within sphenoid sinuses. 5. Fluid within the mastoid air cells bilaterally. Hasmukh Oakes MD Abdomen Ultrasound 11/23/16 0000 Signed Impressions: Service Date/Time: Wednesday, November 23, 2016 19:33 - CONCLUSION: 1. Somewhat limited study. Proximal superior mesenteric artery appears patent. 2. Mildly elevated flow velocities in the celiac and hepatic arteries of doubtful clinical significance. Giovani Martinez MD GI Procedure 11/21/16 0000 Signed Impressions: Service Date/Time: Monday, November 21, 2016 10:44 - CONCLUSION: ERCP as above. Reymundo Wilburn MD FACR . Procedures 11/21/16: ERCP 11/24/16: Right IJ central line placement 11/24/16: Intubation 11/24/16: Colonoscopy/exploratory laparotomy 11/28/16: Transfusion 11/30/16: Extubation and reintubation 12/01/16: Transfusion 12/06/16: Tracheostomy 12/10/16: PEG tube placement . Assessment and Plan Disease Oriented Problem List: (1) Cecal volvulus (2) Acute metabolic encephalopathy (3) Acute respiratory failure (4) COPD (chronic obstructive pulmonary disease) (5) Stroke Comment: Imaging shows bilateral basal ganglia strokes. . (6) Systolic heart failure (7) Transaminitis (8) Atrial fibrillation with rapid ventricular response (9) Leukocytosis (10) JOSUE (acute kidney injury) Comment: Resolved . (11) Sepsis (12) GI bleed Comment: Unkown etiology . (13) GERD (gastroesophageal reflux disease) Symptom Scale: (1) Dyspnea 0-10 Scale: Unable to quantify Comment: Not tolerating C Pap trials. Dyspnea controlled with mechanical ventilation. . (2) Encephalopathy 0-10 Scale: Unable to quantify Comment: Currently requiring sedation for respiratory reasons. While sedated responds only to noxious stimuli. . (3) Pain 0-10 Scale: Unable to quantify Comment: Patient is not appearing painful. Possible sources of pain might include prolonged bedbound status; recent tracheostomy; recent PEG tube placement; restraints; Castillo catheter; vascular access lines. . (4) Nausea and vomiting 0-10 Scale: Unable to quantify Pertinent Non-Medical Issues Psychosocial: Patient is originally from [place], [place]. She was adopted when she was 10 days old. to for approximately 57 years. Patient's states they have 6 children together. Four children are "HIS"; one child is "HERS' and two children are "THEIRS." Three of the children live in [place] , and the other children in [place]. Daughter, Chyna lives in [place]. The patient lives in [place] in a elder mobile home community with her . Her was working at [employer] until recently, and the patient was working at the [employer] in [place] until approximately 7 years ago. 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 Spiritual: Confucianism neyda; declines armhole raiser lockstitch visits. Legal: Patient's and son are designated as health care surrogate decision makers. Ethical issues impacting care: No known ethical issues impacting care at this time. . Important Contacts * Seun Forde, : [phone] * Chyna Alatorre, daughter: [phone] . Prognosis Patient is a critically ill, 86-year-old female status post exploratory laparotomy on 11/24/16 secondary to cecal volvulus with right colectomy and cholecystectomy. Patient's hospital course has been complicated by severe sepsis and multiorgan dysfunction. She has required Levophed and Cardizem drip for rate control. She has acute respiratory failure and is ventilator dependent ; acute toxic metabolic encephalopathy. She tolerated extubation x 1.5 hours on 11/30/[address] of the chest revealed severe emphysema with bilateral upper and lower lobe infiltrates. Now s/p tracheostomy and PEG tube placement. New GI bleed on 12/11/16. If the patient survives this hospitalization, she will likely experience ongoing setbacks and complications making her overall prognosis poor. . Code Status: Full Code Plan == Code Status: FULL CODE == Decision-making: Patient is incapacitated and will unlikley regain capacity. Patient's and son (both name Seun Forde) are designated as the health care surrogate decision makers. == Goals of medical treatment: Goals are aggressive per and son. It should be noted however that... * A living will was completed on 04/26/2016 and is accessible and the patient's EMR. Patient states if at any time she should suffer from a terminal condition , persistent vegetative state or incurable affliction, and if her attending has determined that there can be no recovery from such condition and the application of life prolonging procedures would serve only to artificially prolong the dying process, the patient directs that such procedures be withheld are withdrawn, and that she be permitted to naturally with only the administration of medication and/or the performance of any medical procedure deemed necessary to provide her with comfort care order or alleviate pain. She states she desires that nutrition and hydration be withheld are withdrawn when application of such procedure would serve only to perform long artificially the process of dying. ==Symptom management - * N/V: Ileus appeared to be resolving. Now with new GI bleed of uncertain etiology. * Pain: Patient is on propofol and not showing signs of pain. Sources of pain might be from recent procedures -- laparotomy; tracheostomy; PEG tube placement. Other sources might be prolonged bedbound status; castillo catheter; venou access catheters; restraints; etc. Has order in place for fentanyl drip if needed. No further recommendations at this time. * Encephalopathy: Neurology was consulted secondary to acute encephalopathy, possibly related to infection. 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 No recommendations at this time. * Dyspnea: CT chest showing severe underlying emphysema; bilateral upper and lower lobe infiltrates likely secondary to aspiration. MRSA and now gram neg aditya growing in sputum. Not tolerating CPAP trials. Anticipate difficulty getting her off the vent. == I have asked the nursing staff to call me when family arrives on 12/12/16. Will want to re-visit goals given Gi bleed, new gram neg microbe in sputum, lack of improvement. ==Palliative care will continue to follow this patient to establish trust, assist with symptom management and clarification of medical treatment goals. . Attestation To help prompt me to consider important information that might be impacting today's encounter and assessment, information from prior notes written by myself or my colleagues may have been "brought forward" into today's note. My signature on this note, however, is an attestation that I personally performed the exam, history, and/or decision-making noted today, and, unless otherwise indicated, the interactions with patient, family, and staff as well as the review of records all occurred today. I also attest that the listed assessment and stated plan reflect my best clinical judgment today based on the combination of historical information, prior notes, and today's exam/ interactions. When time spent is documented, it refers only to time spent today by the signer, or if indicated, combined time spent today by collaborating physician/nurse practitioner. . Pablito Collier MD Dec 11, 2016 18:48
[2016-12-11] MEDS: ATORVASTATIN 80 MG TAB PO SCH (20:54)
[2016-12-11] MEDS ORDERED: PHYTONADIONE 10 MG/D5W 50 ML IV ONE ×2 (21:00)
--- NOTE | 2016-12-11 21:21 | HHI.IDPN ---
Subjective Subjective Remarks delayed entry seen around 1615 Remains on vent + tolerating trickle tube feeds + diarrhea + afebril growing MRSA and a GNB in sputum clx Antibiotics zosyn zyvox Lines Line sites with no e.o infection Past Medical History reviewed Allergies: Coded Allergies: No Known Allergies (Unverified , 11/24/16) Objective . Vital Signs Date Time Temp Pulse Resp B/P (MAP) Pulse Ox O2 Delivery O2 Flow Rate FiO2 12/11/16 20:15 100 35 12/11/16 18:00 91 12/11/16 17:08 98 35 12/11/16 16:00 98.4 86 18 106/53 (70) 98 12/11/16 16:00 86 12/11/16 16:00 35 12/11/16 14:00 83 12/11/16 13:05 98 35 12/11/16 12:00 86 12/11/16 12:00 98.0 86 22 102/55 (71) 98 12/11/16 12:00 35 12/11/16 10:00 89 12/11/16 09:55 100 35 12/11/16 08:30 100 35 12/11/16 08:00 97.5 87 21 114/56 (75) 100 12/11/16 08:00 35 12/11/16 08:00 87 12/11/16 04:29 100 35 12/11/16 04:00 35 12/11/16 04:00 97.1 83 22 128/58 (81) 100 12/11/16 00:42 100 35 12/11/16 00:00 35 12/11/16 00:00 97.2 83 21 114/53 (73) 100 12/10/16 21:36 99 35 12/11/16 12/11/16 12/12/16 15:00 23:00 07:00 Intake Total 150 ml Output Total 370.0 ml Balance -220.0 ml IV Total 150 ml Tube Feeding Residual Discard 370.0 ml . Laboratory Tests Test 12/10/16 08:25 12/11/16 05:55 12/11/16 15:37 White Blood Count 10.2 TH/MM3 16.1 TH/MM3 13.2 TH/MM3 Red Blood Count 3.03 MIL/MM3 2.63 MIL/MM3 2.40 MIL/MM3 Hemoglobin 8.5 GM/DL 7.2 GM/DL 6.5 GM/DL Hematocrit 25.1 % 21.8 % 19.8 % Mean Corpuscular Volume 83.0 FL 83.0 FL 82.6 FL Mean Corpuscular Hemoglobin 27.9 PG 27.5 PG 27.1 PG Mean Corpuscular Hemoglobin Concent 33.7 % 33.2 % 32.8 % Red Cell Distribution Width 17.0 % 16.6 % 16.9 % Platelet Count 45 TH/MM3 37 TH/MM3 37 TH/MM3 Mean Platelet Volume 10.6 FL 11.6 FL 11.3 FL Neutrophils (%) (Auto) 88.7 % 94.2 % 93.0 % Lymphocytes (%) (Auto) 6.9 % 4.6 % 5.7 % Monocytes (%) (Auto) 3.1 % 1.0 % 1.1 % Eosinophils (%) (Auto) 0.7 % 0.1 % 0.0 % Basophils (%) (Auto) 0.6 % 0.1 % 0.2 % Neutrophils # (Auto) 9.1 TH/MM3 15.2 TH/MM3 12.2 TH/MM3 Lymphocytes # (Auto) 0.7 TH/MM3 0.7 TH/MM3 0.8 TH/MM3 Monocytes # (Auto) 0.3 TH/MM3 0.2 TH/MM3 0.1 TH/MM3 Eosinophils # (Auto) 0.1 TH/MM3 0.0 TH/MM3 0.0 TH/MM3 Basophils # (Auto) 0.1 TH/MM3 0.0 TH/MM3 0.0 TH/MM3 CBC Comment AUTO DIFF AUTO DIFF AUTO DIFF Differential Total Cells Counted 100 Neutrophils % (Manual) 83 % Band Neutrophils % 11 % Lymphocytes % 4 % Monocytes % 2 % Neutrophils # (Manual) 9.6 TH/MM3 Differential Comment FINAL DIFF MANUAL AUTO DIFF CONFIRMED AUTO DIFF CONFIRMED Platelet Estimate LOW LOW LOW Platelet Morphology Comment ENLARGED ENLARGED NORMAL Acanthocytes 1+ 1+ 1+ Keratocytes OCC OCC OCC Laboratory Tests Test 12/10/16 08:25 12/11/16 05:55 Blood Urea Nitrogen 9 MG/DL 16 MG/DL Creatinine 0.67 MG/DL 0.87 MG/DL Random Glucose 77 MG/DL 130 MG/DL Calcium Level 8.3 MG/DL 7.9 MG/DL Sodium Level 140 MEQ/L 138 MEQ/L Potassium Level 3.0 MEQ/L 4.3 MEQ/L Chloride Level 109 MEQ/L 110 MEQ/L Carbon Dioxide Level 18.8 MEQ/L 18.8 MEQ/L Anion Gap 12 MEQ/L 9 MEQ/L Estimat Glomerular Filtration Rate 83 ML/MIN 62 ML/MIN Phosphorus Level 3.4 MG/DL Magnesium Level 1.5 MG/DL Microbiology Date/Time Source Procedure Growth Status 12/10/16 11:25 Sputum Endotracheal Gram Stain - Final Resulted 12/10/16 11:25 Sputum Culture - Preliminary S. Aureus Mrsa Gram Negative Aditya Resulted Imaging Last Impressions Chest X-Ray 12/09/16 0000 Signed Impressions: Service Date/Time: Friday, December 09, 2016 11:08 - CONCLUSION: 1. Consolidation of the left lower lobe stable compared to previous. 2. Tracheostomy and NG tube in satisfactory position. 3. Diffuse interstitial prominence similar to previous. Ben Wilburn MD Abdomen X-Ray 12/07/16 0000 Signed Impressions: Service Date/Time: Wednesday, December 07, 2016 10:02 - CONCLUSION: 1. Improved mild adynamic ileus bowel gas pattern. Sam Buckner MD Chest CT 12/01/16 0000 Signed Impressions: Service Date/Time: Thursday, December 01, 2016 08:13 - CONCLUSION: 1. Severe emphysema with bilateral airspace consolidation in a patchy distribution involving the upper and lower lobes but most severe in the left lower lobe. There is also a trace left pleural effusion. Imaging findings are nonspecific but infection or aspiration should be considerations. 2. Coronary artery calcification. Giovani Lopez MD Abdomen/Pelvis CT 12/01/16 0000 Signed Impressions: Service Date/Time: Thursday, December 01, 2016 08:13 - CONCLUSION: 1. No acute finding is identified to explain the blood in stool. There are postsurgical findings suggesting prior right hemicolectomy. Colon contains a fluid and air and there is sigmoid diverticulosis. 2. Small volume of free fluid in the abdomen and pelvis. Also, there is mild diffuse subcutaneous edema. Giovani Lopez MD Head CT 11/27/16 0000 Signed Impressions: Service Date/Time: Sunday, November 27, 2016 14:47 - CONCLUSION: 1. Questionable edema or subacute infarct in the left parietal deep white matter. This would be better evaluated with MRI. No intracranial hemorrhage or significant mass effect. Romario Kauffman MD Brain MRI 11/27/16 0000 Signed Impressions: Service Date/Time: Sunday, November 27, 2016 18:10 - CONCLUSION: 1. Moderate periventricular and subcortical white matter small vessel ischemic changes bilaterally. 2. 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 3. No acute infarct, acute hemorrhage, mass effect or extra-axial fluid collection. 4. Fluid level within sphenoid sinuses. 5. Fluid within the mastoid air cells bilaterally. Hasmukh Oakes MD Abdomen Ultrasound 11/23/16 0000 Signed Impressions: Service Date/Time: Wednesday, November 23, 2016 19:33 - CONCLUSION: 1. Somewhat limited study. Proximal superior mesenteric artery appears patent. 2. Mildly elevated flow velocities in the celiac and hepatic arteries of doubtful clinical significance. Giovani Martinez MD GI Procedure 11/21/16 0000 Signed Impressions: Service Date/Time: Monday, November 21, 2016 10:44 - CONCLUSION: ERCP as above. Reymundo Wilburn MD FACR Physical Exam CONSTITUTIONAL/GENERAL: This is an adequately nourished patient, in no apparent distress. sedated int'd on vent TUBES/LINES/DRAINS: SKIN: No jaundice, rashes, or lesions. Skin temperature appropriate. Not diaphoretic. EYES: OD - prosthesis Fundi not examined. CARDIOVASCULAR: Regular rate and rhythm + 2/6 systolic murmur, no gallops, or rubs. No JVD. Peripheral pulses symmetric. Well perfused perifery RESPIRATORY/CHEST: Symmetric, unlabored respirations. Rhonchi to auscultation. Breath sounds equal bilaterally. No wheezes, rales, or rhonchi. GASTROINTESTINAL:Abd distended, tight; no reaction to palpation incision is healing, clean, closed BS hypoactive inconmtinent of dark brown stool GENITOURINARY: Without palpable bladder distension. Sanchez catheter in place with small amount of dark yellow urine MUSCULOSKELETAL: Extremities without clubbing, , persistent 3 + tight edema. improved cyanosis feet, fingers NEUROLOGICAL: sedated unresponsive PSYCHIATRIC: unable to assess Assessment & Plan Remarks Volvulus sp colon resection and cholecystectomy path benign:cecum volvulus and chronic calculous cholecstitis Sepsis from intraabdominal source (leukocytosis, leukemoid reaction, hypoxia, JOSUE) PNA, MRSA, GNB- ID P: ?aspiration, - GNB is new Recurrent VDRF - sp reintubation Melena: CT unremarkable Diarrhea, C.diff negative Thrombocytopenia : ? zyvox contributing Ileus Criticallyh ill, unstable Rec: fu WBC monitor plts cont zosyn, cont fluconazol dc zyvox start vancomycin fu GNB in sputums consider CT if repeat c.diff negative dw Sharon Warren MD Dec 11, 2016 21:21
[2016-12-11] MEDS ORDERED: Vancomycin Consult Pharmacy 1 EA OTHER SCH (21:30)
[2016-12-12] VITALS (25 sets, daily range): BP systolic 131–159; BP diastolic 63–82; PULSE 80–103; RESP 14–27; TEMP 97.1–98.5; O2SAT 94–100
[2016-12-12] MEDS: INSULIN NovoLIN REGULAR SUPPLEMENTAL SCALE SQ SCH ×6 (00:15→20:15)
[2016-12-12] MEDS: methylPREDNISolone SOD SUCC 40 MG/1 ML VIAL IV PUSH SCH ×2 (01:48→11:53)
[2016-12-12] MEDS: PIPERACIL-TAZO 3.375 GM PREMIX 50 ML IV SCH ×4 (01:48→20:40)
[2016-12-12] MEDS: PROPOFOL 1000 MG/100 ML INJ 100 ML IV PRN ×2 (01:53→14:29)
[2016-12-12 01:56] LABS: AUTOMATED NEUTROPHIL # 13.6 TH/MM3 (1.8-7.7); BASOPHIL % 0.2 % (0.0-2.0); HEMATOCRIT 25.9 % (35.0-46.0); LYMPH % 4.7 % (9.0-44.0); LYMPHOCYTE # 0.7 TH/MM3 (1.0-4.8); MEAN CELL VOLUME 83.4 FL (80.0-100.0); MEAN CORPUSCULAR HEMOGLOBIN 28.7 PG (27.0-34.0); MEAN CORPUSCULAR HGB CONC 34.5 % (32.0-36.0); NEUT % 94.1 % (16.0-70.0); PLATELET COUNT 79 TH/MM3 (150-450); RED BLOOD COUNT 3.11 MIL/MM3 (4.00-5.30); RED CELL DISTRIBUTION WIDTH 15.9 % (11.6-17.2); WHITE BLOOD COUNT 14.5 TH/MM3 (4.0-11.0)
[2016-12-12] MEDS ORDERED: VANCOMYCIN INJ 1,250 MG in SODIUM CHLOR 0.9% 250 ML INJ 250 ML IV SCH (02:00)
[2016-12-12 02:06] LABS: HEMO FLAGS AUTO DIFF
[2016-12-12 02:11] LABS: BICARBONATE 19.2 MEQ/L (21.0-32.0); POTASSIUM 3.7 MEQ/L (3.5-5.1)
[2016-12-12 02:41] LABS: PLATELET ESTIMATE SMEAR LOW (NORMAL); PLATELET MORPHOLOGY NORMAL (NORMAL); SCAN/DIFF AUTO DIFF CONFIRMED
[2016-12-12 02:42] LABS: ACANTHOCYTES OCC (NORMAL)
[2016-12-12] MEDS: DILTIAZEM HCL 30 MG TAB PO SCH ×3 (06:00→17:26)
[2016-12-12] MEDS: ARTIFICIAL TEARS OPTH SOLN 15 ML BTL LEFT EYE SCH ×3 (06:02→20:41)
[2016-12-12] MEDS: METOCLOPRAMIDE HCL 10 MG/2 ML VIAL IV PUSH SCH ×3 (06:03→20:41)
[2016-12-12] MEDS: LACTULOSE SYRUP 20 GM/30 ML CUP NG SCH ×2 (09:00→20:41)
[2016-12-12] MEDS: SODIUM BICARBONATE 325 MG TAB NG SCH ×3 (09:02→17:26)
[2016-12-12] MEDS: URSODIOL 300 MG CAP PO SCH ×2 (09:02→20:41)
[2016-12-12] MEDS: SODIUM CHLORIDE 0.9% FLUSH 10 ML FLUSH IV FLUSH SCH ×2 (09:02→20:41)
[2016-12-12] MEDS: PANTOPRAZOLE SODIUM 40 MG VIAL IV PUSH SCH ×2 (09:03→20:41)
--- NOTE | 2016-12-12 10:14 | HHI.CCPN ---
Subjective Remarks/Hospital Course 86 y/o woman developed worsening SOB this afternoon associated with marked leukocytosis. Recent biliary instrumentation for obstruction 48 hours ago and probable sepsis. On appropriate antibiotics. Requiring NRBM now for oxygenation to 97%. Visibly labored breathing. CXR with interstitial edema. EF 35% 2014. Move to ICU. 11/24: Patient s/p colonoscopy this morning which showed mod. diverticulosis in sigmoid colon and hemorrhoids. Remains on NRB with good sats. Afebrile. Cr increased 1.51 from 1.08. 11/25 Patient s/p Ex lap, right colectomy and cholecystectomy. She kept intubated postop went into Afib with RVR overnight and placed on Cardizem drip 10mg/hr. 11/26 Patient is sedated with Diprivan, fentanyl and intubated. Afebrile. On Cardizem drip 5mg/hr. renal function worse with Cr: 2.01 from 1.89, UOP: 1L in 24 hrs 11/27 Patient remains sedated and intubated. Off Cardizem drip. Renal function is improving with Cr: 1.67 from 2.01. Afebrile. 11/28 remains intubated sedated. Heart rate controlled. Creat 1.26. Hb 6.5. Status post 2 units PRBC today. WBC count decreased from 40,000-26,000. Creat improving 1.26 11/29: Patient A. fib with RVR currently on diltiazem drip at 15 mg an hour for rate control. Hemodynamically stable. 11/30: Heart rate better controlled today. Diltiazem drip discontinued overnight. Heart rate currently in the 70s. Tolerated PSV trials yesterday. We'll attempt extubation today if tolerates. No bowel movement. Tolerating tube feeds at 30 cc an hour 12/01: Tmax 101.7. Failed extubation trial after 1 hour yesterday. Persistently hypotensive post intubation. Transfuse 1 unit hemoglobin yesterday for melena per RN. Hemoglobin went from 7.5-11.3. CVP is 12. Enoxaparin will be held. CT thorax, abdomen and pelvis performed now. Lactate pending. Serial hemoglobins. GI consult for EGD 12/03: Patient remains sedated with Diprivan and Fentanyl and intubated. On Levophed 4 mics, Cardizem drip 2.5mg/hr. For EGD today 12/04 Patient is sedated and intubated. s/p EGD yesterday showed gastritis, no active bleeding. Remains on Cardizem 2.5mg/hr and Levophed 3 mics. Afebrile. Subjective 12/05: Afebrile. Hemoglobin stable. Off norepinephrine and diltiazem drips. Creatinine stabilizing. 12/06: No acute events reported overnight. Plan for tracheostomy at 10 AM today. Platelet count is 68,000, discussed this with Dr. Polanco. HIT screen ordered yesterday pending 12/07 Patient s/p trach yesterday sedated with Diprivan. Afebrile. 12/08 Patient is on ventilator via trach, T: 100.8 at 4am. 12/09 No events overnight sedated with Diprivan and intubated. Afebrile. 12/10 Patient remains sedated and intubated, for PEG tube placement today. 12/11 s/p PEG tube placement yesterday. Sedated with Diprivan and intubated. 12/12 Patient remains sedated and on ventilator via trach. Afebrile. Given 1unit PRBC, FFP and PLT yesterday Objective Vital Signs Date Time Temp Pulse Resp B/P (MAP) Pulse Ox O2 Delivery O2 Flow Rate FiO2 12/12/16 08:49 98 35 12/12/16 06:00 100 12/12/16 04:00 97.1 19 148/72 (97) Intake and Output 12/12/16 12/12/16 12/13/16 08:00 16:00 00:00 Intake Total 1376 ml Output Total 625 ml Balance 751 ml Result Diagram: 12/12/16 0145 12/12/16 0145 Other Results Laboratory Tests Test 12/11/16 15:37 12/12/16 01:45 White Blood Count 13.2 TH/MM3 14.5 TH/MM3 Red Blood Count 2.40 MIL/MM3 3.11 MIL/MM3 Hemoglobin 6.5 GM/DL 8.9 GM/DL Hematocrit 19.8 % 25.9 % Mean Corpuscular Volume 82.6 FL 83.4 FL Mean Corpuscular Hemoglobin 27.1 PG 28.7 PG Mean Corpuscular Hemoglobin Concent 32.8 % 34.5 % Red Cell Distribution Width 16.9 % 15.9 % Platelet Count 37 TH/MM3 79 TH/MM3 Mean Platelet Volume 11.3 FL 8.6 FL Neutrophils (%) (Auto) 93.0 % 94.1 % Lymphocytes (%) (Auto) 5.7 % 4.7 % Monocytes (%) (Auto) 1.1 % 1.0 % Eosinophils (%) (Auto) 0.0 % 0.0 % Basophils (%) (Auto) 0.2 % 0.2 % Neutrophils # (Auto) 12.2 TH/MM3 13.6 TH/MM3 Lymphocytes # (Auto) 0.8 TH/MM3 0.7 TH/MM3 Monocytes # (Auto) 0.1 TH/MM3 0.1 TH/MM3 Eosinophils # (Auto) 0.0 TH/MM3 0.0 TH/MM3 Basophils # (Auto) 0.0 TH/MM3 0.0 TH/MM3 CBC Comment AUTO DIFF AUTO DIFF Differential Comment AUTO DIFF CONFIRMED AUTO DIFF CONFIRMED Platelet Estimate LOW LOW Platelet Morphology Comment NORMAL NORMAL Acanthocytes 1+ OCC Keratocytes OCC Prothrombin Time 11.5 SEC Prothromb Time International Ratio 1.0 RATIO Activated Partial Thromboplast Time 28.9 SEC Fibrinogen 500 mg/dL Ovalocytes Blood Urea Nitrogen 26 MG/DL Creatinine 1.03 MG/DL Random Glucose 144 MG/DL Calcium Level 8.4 MG/DL Phosphorus Level 3.4 MG/DL Magnesium Level 2.0 MG/DL Sodium Level 139 MEQ/L Potassium Level 3.7 MEQ/L Chloride Level 108 MEQ/L Carbon Dioxide Level 19.2 MEQ/L Anion Gap 12 MEQ/L Estimat Glomerular Filtration Rate 51 ML/MIN Imaging Last Impressions Chest X-Ray 12/09/16 0000 Signed Impressions: Service Date/Time: Friday, December 09, 2016 11:08 - CONCLUSION: 1. Consolidation of the left lower lobe stable compared to previous. 2. Tracheostomy and NG tube in satisfactory position. 3. Diffuse interstitial prominence similar to previous. Ben Wilburn MD Abdomen X-Ray 12/07/16 0000 Signed Impressions: Service Date/Time: Wednesday, December 07, 2016 10:02 - CONCLUSION: 1. Improved mild adynamic ileus bowel gas pattern. Sam Buckner MD Chest CT 12/01/16 0000 Signed Impressions: Service Date/Time: Thursday, December 01, 2016 08:13 - CONCLUSION: 1. Severe emphysema with bilateral airspace consolidation in a patchy distribution involving the upper and lower lobes but most severe in the left lower lobe. There is also a trace left pleural effusion. Imaging findings are nonspecific but infection or aspiration should be considerations. 2. Coronary artery calcification. Giovani Lopez MD Abdomen/Pelvis CT 12/01/16 0000 Signed Impressions: Service Date/Time: Thursday, December 01, 2016 08:13 - CONCLUSION: 1. No acute finding is identified to explain the blood in stool. There are postsurgical findings suggesting prior right hemicolectomy. Colon contains a fluid and air and there is sigmoid diverticulosis. 2. Small volume of free fluid in the abdomen and pelvis. Also, there is mild diffuse subcutaneous edema. Giovani Lopez MD Head CT 11/27/16 0000 Signed Impressions: Service Date/Time: Sunday, November 27, 2016 14:47 - CONCLUSION: 1. Questionable edema or subacute infarct in the left parietal deep white matter. This would be better evaluated with MRI. No intracranial hemorrhage or significant mass effect. Romario Kauffman MD Brain MRI 11/27/16 0000 Signed Impressions: Service Date/Time: Sunday, November 27, 2016 18:10 - CONCLUSION: 1. Moderate periventricular and subcortical white matter small vessel ischemic changes bilaterally. 2. 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 3. No acute infarct, acute hemorrhage, mass effect or extra-axial fluid collection. 4. Fluid level within sphenoid sinuses. 5. Fluid within the mastoid air cells bilaterally. Hasmukh Oakes MD Abdomen Ultrasound 11/23/16 0000 Signed Impressions: Service Date/Time: Wednesday, November 23, 2016 19:33 - CONCLUSION: 1. Somewhat limited study. Proximal superior mesenteric artery appears patent. 2. Mildly elevated flow velocities in the celiac and hepatic arteries of doubtful clinical significance. Giovani Martinez MD GI Procedure 11/21/16 0000 Signed Impressions: Service Date/Time: Monday, November 21, 2016 10:44 - CONCLUSION: ERCP as above. Reymundo Wilburn MD FACR Objective Remarks GENERAL: 86 yo female, on ventilator via trach SKIN: Warm and dry. No rash HEAD: Normocephalic. EYES: No scleral icterus. No injection or drainage. 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 NECK: Supple, trachea midline. No JVD or lymphadenopathy. Trach in place CARDIOVASCULAR: RRR. S1, S2 no S4. 2/6 systolic murmur left lower sternal border/right upper sternal border RESPIRATORY: Breath sounds equal bilaterally. No accessory muscle use. GASTROINTESTINAL: Abdomen soft, tenderness on palpation. MUSCULOSKELETAL: Trace peripheral edema Neuro: Currently on propofol for sedation. Withdraws all 4 extremities to noxious stimulation. Positive gag. 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 Date of Insertion: Nov 24, 2016 Line: Central Venous Catheter Side: Right Location: Internal, Jugular A/P Assessment and Plan Neuro/Psych: History of chronic bilateral basal ganglia CVA Acute toxic metabolic encephalopathy Prosthetic left eye On propofol as needed infusion for sedation/analgesia while intubated Goal of RASS -2 Daily sedation vacation. MRI brain 11/27 showed moderate small vessel disease, old bilateral basal ganglia CVA however no acute findings. Evaluated by Dr. Roque - neurology Continue amitriptyline 10 mg at night Acetaminophen 650 mg by tube every 6 hours. Fever Pulm: Acute hypoxemic respiratory failure- Extubated and reintubated on 11/30 History of COPD ACV 18/650/5/35 Ventilator bundle. s/p trach 12/06 Albuterol/ipratropium aerosols every 6 hours with albuterol aerosols every 2 hours as needed for dyspnea Decrease Solumederol 40mg Q12. Check CXR Continue with vent support and maintain sat >92%. SBT daily as adelina. CT chest 11/20: Severe underlying emphysema. Status post median sternotomy with postsurgical changes. CT thorax 11/30 revealed severe emphysema. Bilateral upper and lower lobe infiltrates/glass ground likely aspiration. CV: Systolic heart failure - likely chronic ejection fraction 40% Severe sepsis Atrial Fibrillation w/ RVR - normal sinus rhythm History of hypertension Severe pulmonary hypertension likely group 3 secondary to COPD PAD history of bilateral CEA On diltiazem 30 mg by mouth every 6 hours. Echo from 11/26 EF 40%, mild MR. Moderate AR/TR. Severe pulmonary HTN (PAP 70mmHg) ASA 81 mg daily held in light of GI bleeding Continue Atorvastatin 80 mg daily RENAL//FEN: Acute kidney injury resolved Monitor renal function, I/O's, avoid nephrotoxins, Nephrology is following- Dr. 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 Gastroesophageal reflux disease Transaminitis Hyperammonia Constipation s/p PEG tube placement 12/10- on GI -Glucerna 1.5 with goals rate 45ml/hr KUB abdomen 12/07: Improved mild adynamic ileus bowel gas pattern. KUB 12/04 revealed mild ileus. 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 Mild head pancreatitis possible in the proper clinical setting. Patient has recently had ERCP and bile duct stone extraction. Bibasilar pneumonia developing. Tiny pleural effusion on the right US abdomen: Proximal superior mesenteric artery appears patent. Currently on lactulose 30 cc twice a day. Ammonia level 42 on 12/06 On ursodiol 300 mg by mouth twice daily. Resume when clinically indicated On metoclopramide per Dr. Polanco for bowel prokinetic medication ID: MRSA pneumonia Continue with abx per ID (Zosyn/fluconazole/Vanco) Monitor for signs of infections ( Fever, WBC) Pertinent cultures Sputum 102/ Sputum: MRSA, E.coli, Pseudomonas BC 11/24: NGTD . Blood cultures 11/29 -no growth C. difficile negative 12/01 12/03 - blood cultures 2 - no growth 12/03, 12/07 - sputum - MRSA Heme: Leukocytosis..trending down Normocytic anemia Thrombocytopenia Monitor CBC, coags s/p transfusion 1unit PRBC, PLT, FFP yesterday. Status post 2 units PRBCs 11/28. 1 unit PRBCs 12/01 Hemoccult stool 11/30 positive HIT negative Endo: SSI with accuchecks with Novulin R every 4 hours GI prophylaxis- Pantoprazole 40mg IV twice a day DVT prophylaxis- Enoxaparin 30mg daily held in light of GI bleed, thrombocytopenia Lines: peripheral IV's Level 3 Marian Rodríguez MD Dec 12, 2016 10:14
--- NOTE | 2016-12-12 11:15 | RADRPT ---
EXAM DATE/TIME: 12/12/2016 10:24 [facility] COMPARISON: CHEST SINGLE AP, December 09, 2016, 11:08. INDICATIONS : Respiratory distress. MEDICAL HISTORY : Hypertension. Stroke SURGICAL HISTORY : Hysterectomy. CABG ENCOUNTER: Subsequent ACUITY: 1 week PAIN SCORE: Non-responsive. LOCATION: Bilateral chest FINDINGS: Tracheostomy is present good position. There is persistent consolidation in the left lung base. Coars e interstitial infiltrates present elsewhere. Cardiac contours are grossly unchanged. CONCLUSION: Stable chest appearance Giovani Ritter MD on December 12, 2016 at 11:13 Board Certified Radiologist. This report was verified electronically.
[2016-12-12] MEDS: FLUCONAZOLE 400 MG PREMIX BAG 200 ML IV SCH (11:51)
[2016-12-12 13:02] LABS: BLOOD GAS BASE EXCESS -5.2 mmol/L (-2-2); BLOOD GAS CARBOXYHEMOGLOBIN 1.7 % (0-4); BLOOD GAS HCO3 18 mmol/L (22-26); BLOOD GAS METHEMOGLOBIN 1.1 % (0-2); BLOOD GAS O2 HGB SATURATION 96 % (90-100); BLOOD GAS OXYGEN CONTENT 11.3 Vol % (12.0-20.0); BLOOD GAS PCO2 27 mmHg (38-42); BLOOD GAS PO2 130 mmHg (61-120); BLOOD GAS TOTAL HGB 8.2 G/DL (12.0-16.0); CRITICAL VALUE NO; DRAW SITE RT RADIAL; FIO2 35 %; NUMBER OF ARTERIAL PUNCTURES 1; OXYGEN DEVICE VENTILATOR; STAT NO; TEMP CORR TO 98.6; ULNAR PULSE PRESENT; VENT SETTINGS AC14/650/PEEP5
--- NOTE | 2016-12-12 14:40 | HHI.PR ---
Subjective Subjective Notes She remains ventilated. Not tolerating trickle enteral feeds. Objective Vitals/I&O Vital Signs Date Time Temp Pulse Resp B/P (MAP) Pulse Ox O2 Delivery O2 Flow Rate FiO2 12/12/16 13:40 100 35 12/12/16 06:00 100 12/12/16 04:00 97.1 19 148/72 (97) Labs Laboratory Tests Test 12/11/16 15:37 12/12/16 01:45 12/12/16 12:41 White Blood Count 13.2 14.5 Red Blood Count 2.40 3.11 Hemoglobin 6.5 8.9 Hematocrit 19.8 25.9 Mean Corpuscular Volume 82.6 83.4 Mean Corpuscular Hemoglobin 27.1 28.7 Mean Corpuscular Hemoglobin Concent 32.8 34.5 Red Cell Distribution Width 16.9 15.9 Platelet Count 37 79 Mean Platelet Volume 11.3 8.6 Neutrophils (%) (Auto) 93.0 94.1 Lymphocytes (%) (Auto) 5.7 4.7 Monocytes (%) (Auto) 1.1 1.0 Eosinophils (%) (Auto) 0.0 0.0 Basophils (%) (Auto) 0.2 0.2 Neutrophils # (Auto) 12.2 13.6 Lymphocytes # (Auto) 0.8 0.7 Monocytes # (Auto) 0.1 0.1 Eosinophils # (Auto) 0.0 0.0 Basophils # (Auto) 0.0 0.0 CBC Comment AUTO DIFF AUTO DIFF Differential Comment AUTO DIFF CONFIRMED AUTO DIFF CONFIRMED Platelet Estimate LOW LOW Platelet Morphology Comment NORMAL NORMAL Acanthocytes 1+ OCC Keratocytes OCC Prothrombin Time 11.5 Prothromb Time International Ratio 1.0 Activated Partial Thromboplast Time 28.9 Fibrinogen 500 Ovalocytes Blood Urea Nitrogen 26 Creatinine 1.03 Random Glucose 144 Calcium Level 8.4 Phosphorus Level 3.4 Magnesium Level 2.0 Sodium Level 139 Potassium Level 3.7 Chloride Level 108 Carbon Dioxide Level 19.2 Anion Gap 12 Estimat Glomerular Filtration Rate 51 Blood Gas Puncture Site RT RADIAL Blood Gas Patient Temperature 98.6 Blood Gas HCO3 18 Blood Gas Base Excess -5.2 Blood Gas Oxygen Saturation 96 Arterial Blood pH 7.45 Arterial Blood Partial Pressure CO2 27 Arterial Blood Partial Pressure O2 130 Arterial Blood Oxygen Content 11.3 Arterial Blood Carboxyhemoglobin 1.7 Arterial Blood Methemoglobin 1.1 Blood Gas Hemoglobin 8.2 Oxygen Delivery Device VENTILATOR Blood Gas Ventilator Setting AC14/650/PEEP5 Blood Gas Inspired Oxygen 35 Date/Time Source Procedure Growth Status 12/03/16 15:25 Blood Peripheral Aerobic Blood Culture - Final NO GROWTH IN 5 DAYS Complete 12/03/16 15:25 Blood Peripheral Anaerobic Blood Culture - Final NO GROWTH IN 5 DAYS Complete 11/30/16 23:00 Stool Stool Stool Occult Blood (MAXINE) - Final HEMOCCULT POSITIVE Complete 12/10/16 11:25 Sputum Endotracheal Gram Stain - Final Resulted 12/10/16 11:25 Sputum Culture - Preliminary S. Aureus Mrsa Escherichia Coli Pseudomonas Species Resulted Radiology Last Impressions Chest X-Ray 11/24/16 0000 Signed Impressions: Service Date/Time: Thursday, November 24, 2016 11:57 - CONCLUSION: 1. Interval placement of nasogastric catheter with tip beyond the GE junction omitted from the image. 2. Persistent diffuse coarse interstitial prominence likely reflecting interstitial edema/pneumonia superimposed on chronic interstitial changes. 3. Stable mild bibasilar airspace disease, likely atelectasis. Sam Buckner MD Abdomen/Pelvis CT 11/23/16 0000 Signed Impressions: Service Date/Time: Wednesday, November 23, 2016 21:46 - CONCLUSION: 1. 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 2. Mild head pancreatitis possible in the proper clinical setting. Patient has recently had ERCP and bile duct stone extraction. 3. Bibasilar pneumonia developing. Tiny pleural effusion on the right. 4. Chronic findings otherwise. Giovani Martinez MD Abdomen Ultrasound 11/23/16 0000 Signed Impressions: Service Date/Time: Wednesday, November 23, 2016 19:33 - CONCLUSION: 1. Somewhat limited study. Proximal superior mesenteric artery appears patent. 2. Mildly elevated flow velocities in the celiac and hepatic arteries of doubtful clinical significance. Giovani Martinez MD GI Procedure 11/21/16 0000 Signed Impressions: Service Date/Time: Monday, November 21, 2016 10:44 - CONCLUSION: ERCP as above. Reymundo Wilburn MD FACR Chest CT 11/20/16 1407 Signed Impressions: Service Date/Time: Sunday, November 20, 2016 15:13 - CONCLUSION: 1. Severe underlying emphysema. 2. Status post median sternotomy with postsurgical changes. Maikol Paredes MD Narrative Exam Ventilated Trach in place no bleeding Abd: soft, inc c/d/i, NGT in place, mod distention A/P Assessment and Plan 86 yo F POD s/p ex lap right colectomy, cholecystectomy, for cecal volvulus and common duct stones, s/p trach Ongoing critical care support. S/p PEG. Not tolerating enteral feeding. I will order CT a/p. Midline triston can be removed. Bryant Polanco MD Dec 12, 2016 14:40
[2016-12-12] MEDS ORDERED: DIATRIZOATE MEGLUM/DIATRIZOATE SOD 9 ML CUP PO ONE (14:46)
--- NOTE | 2016-12-12 18:58 | HHI.GIFU ---
GI Follow-up Note Consult Follow-up Subjective: Patient laying in bed , intubated.Some dark stools.PEG-no drainage , increase residuu, on tf-10 cc/hrs.S/p prbc, ffp, platelets .CT abdomen/pelvis ordered by surgery Objective: PHYSICAL EXAMINATION: Vitals signs stable No fever Vital Signs Date Time Temp Pulse Resp B/P (MAP) Pulse Ox O2 Delivery O2 Flow Rate FiO2 12/12/16 18:00 97 12/12/16 16:00 35 12/12/16 16:00 98.4 98 23 131/74 (93) 98 12/12/16 16:00 98 12/12/16 15:50 94 35 12/12/16 15:00 97 12/12/16 14:00 99 12/12/16 13:40 100 35 12/12/16 13:00 97 12/12/16 12:49 98 35 12/12/16 12:00 98.3 102 16 132/73 (92) 98 12/12/16 12:00 35 12/12/16 12:00 102 12/12/16 11:00 103 HEENT: artificial eye-right normocephalic; atraumatic; no jaundice. Trach in palce NECK: Neck is supple, no JVD, no lymphadenopathy. CHEST: Chest is clear to auscultation and percussion. CARDIAC: Regular rate and rhythm with no murmur gallop or rubs. ABDOMEN: Soft,distended, nontender; no hepatosplenomegaly; bowel sounds are present in all four quadrants, peg in Pace, stapes in place EXTREMITIES: No clubbing, cyanosis, or edema. SKIN: Normal; no rash; no jaundice. NAIL PULLER: sedated Available Data (labs, X- Rays, Procedues) : Laboratory Tests Test 12/11/16 05:55 12/11/16 08:40 12/11/16 15:37 12/12/16 01:45 White Blood Count 16.1 TH/MM3 13.2 TH/MM3 14.5 TH/MM3 Red Blood Count 2.63 MIL/MM3 2.40 MIL/MM3 3.11 MIL/MM3 Hemoglobin 7.2 GM/DL 6.5 GM/DL 8.9 GM/DL Hematocrit 21.8 % 19.8 % 25.9 % Mean Corpuscular Volume 83.0 FL 82.6 FL 83.4 FL Mean Corpuscular Hemoglobin 27.5 PG 27.1 PG 28.7 PG Mean Corpuscular Hemoglobin Concent 33.2 % 32.8 % 34.5 % Red Cell Distribution Width 16.6 % 16.9 % 15.9 % Platelet Count 37 TH/MM3 37 TH/MM3 79 TH/MM3 Mean Platelet Volume 11.6 FL 11.3 FL 8.6 FL Neutrophils (%) (Auto) 94.2 % 93.0 % 94.1 % Lymphocytes (%) (Auto) 4.6 % 5.7 % 4.7 % Monocytes (%) (Auto) 1.0 % 1.1 % 1.0 % Eosinophils (%) (Auto) 0.1 % 0.0 % 0.0 % Basophils (%) (Auto) 0.1 % 0.2 % 0.2 % Neutrophils # (Auto) 15.2 TH/MM3 12.2 TH/MM3 13.6 TH/MM3 Lymphocytes # (Auto) 0.7 TH/MM3 0.8 TH/MM3 0.7 TH/MM3 Monocytes # (Auto) 0.2 TH/MM3 0.1 TH/MM3 0.1 TH/MM3 Eosinophils # (Auto) 0.0 TH/MM3 0.0 TH/MM3 0.0 TH/MM3 Basophils # (Auto) 0.0 TH/MM3 0.0 TH/MM3 0.0 TH/MM3 CBC Comment AUTO DIFF AUTO DIFF AUTO DIFF Differential Comment AUTO DIFF CONFIRMED AUTO DIFF CONFIRMED AUTO DIFF CONFIRMED Platelet Estimate LOW LOW LOW Platelet Morphology Comment ENLARGED NORMAL NORMAL Acanthocytes 1+ 1+ OCC Keratocytes OCC OCC Blood Urea Nitrogen 16 MG/DL 26 MG/DL Creatinine 0.87 MG/DL 1.03 MG/DL Random Glucose 130 MG/DL 144 MG/DL Calcium Level 7.9 MG/DL 8.4 MG/DL Phosphorus Level 3.4 MG/DL 3.4 MG/DL Magnesium Level 1.5 MG/DL 2.0 MG/DL Sodium Level 138 MEQ/L 139 MEQ/L Potassium Level 4.3 MEQ/L 3.7 MEQ/L Chloride Level 110 MEQ/L 108 MEQ/L Carbon Dioxide Level 18.8 MEQ/L 19.2 MEQ/L Anion Gap 9 MEQ/L 12 MEQ/L Estimat Glomerular Filtration Rate 62 ML/MIN 51 ML/MIN Stool C. difficile Toxin (PCR) NEGATIVE Stl C. difficile Toxin Epiderm 027 PRESUMPTIVE NEGATIVE Prothrombin Time 11.5 SEC Prothromb Time International Ratio 1.0 RATIO Activated Partial Thromboplast Time 28.9 SEC Fibrinogen 500 mg/dL Ovalocytes Test 12/12/16 12:41 Blood Gas Puncture Site RT RADIAL Blood Gas Patient Temperature 98.6 Blood Gas HCO3 18 mmol/L Blood Gas Base Excess -5.2 mmol/L Blood Gas Oxygen Saturation 96 % Arterial Blood pH 7.45 Arterial Blood Partial Pressure CO2 27 mmHg Arterial Blood Partial Pressure O2 130 mmHg Arterial Blood Oxygen Content 11.3 Vol % Arterial Blood Carboxyhemoglobin 1.7 % Arterial Blood Methemoglobin 1.1 % Blood Gas Hemoglobin 8.2 G/DL Oxygen Delivery Device VENTILATOR Blood Gas Ventilator Setting AC14/650/PEEP5 Blood Gas Inspired Oxygen 35 % ASSESSMENT/PLAN: cbd stones sp ercp with stone removal cecal volvulus-s/p right hemicolectomy and cholecystectomy respiratory failure-ventilator dependent recurrent gi bleeding, not clear source s/p peg-retained fluid seen during endoscopy , not tolerating feeding well - possible gastroparesis drop in platelets, recurrent gi bleeding -s/p recent platelet transfusion Recommendations advance tf as tolerated-may need g/j tube conversion fu ct abdomen/pelvis transfuse prn supportive care prognosis guarded cbc, cmp, ammonia It was a pleasure seeing Brea Forde. Thank you for this consult. Entered by: Rosette Pandya MD Dec 12, 2016 18:58
--- NOTE | 2016-12-12 19:05 | HHI.PR ---
Addendum to Inpatient Note Additional Information pt seen around 181 full note to follow + pain about the same afebnbrile On exam BUE with weeping edema, but less erythematous + some fine wtrinkling cont amp/clinda dw Sharon Acosta MD Dec 12, 2016 19:05
--- NOTE | 2016-12-12 19:08 | HHI.PR ---
Addendum to Inpatient Note Additional Information pt seen around 181 full note to follow unresponsive not tolerating TF having diarrhea afebrile CT A/P P sp clx with MRSA, E.coli (S to zosyn) SIMON (P) Sharon Guerra RN, MD Dec 12, 2016 19:08
[2016-12-12] MEDS: ATORVASTATIN 80 MG TAB PO SCH (20:41)
--- NOTE | 2016-12-12 21:07 | HHI.HCPN ---
Reason for visit a. To assist with evaluation and management of symptoms including: Dyspnea, encephalopathy, pain, N/V b. To assist medical decision maker(s) with: better understanding of current medical conditions; weighing benefits/burdens of medical treatment options; making medical treatment decisions. . Subjective/Interval History Bleeding from NG tube and at PEG tube site has apparently stopped. Patient continues to pass dark stools. Nursing reports high residuals from tube feeds and feeds still at 10 cc/hr. CT of abd/pelvis has been ordered by surgery but has not yet been done. No CPAP trial today. Nurse reports patient was not arousing and not following commands during sedation vacation. Sputum culture from 01/04/17 growing out MRSA + E coli + Pseudomonas. . Family/friend interactions Spoke to patient's for 15 minutes at bedside. Reviewed the patient's multiple problems. Discussed poor prognosis. reiterated HIS story -- how he was close to and doctors were recommending withdrawal of life support. One doctor insisted on life support for at least a couple of more days and the patient started improving and ultimately returned to high quality of life. I accepted that but indicated we should have ongoing discussions as we watched the clinical course of his . Her chances of returning to any quality of life at this time are becoming more and more remote. . Advance Directives Living Will: Copy in medical record Health Care Surrogate: Copy in medical record Advance Directive Specifics Date completed: 04/26/2016 . Health Care Surrogate(s): Patient's and son are designated as health care surrogate decision makers. . Documented care wishes: A living will was completed on 04/26/2016 and is accessible and the patient's EMR. Patient states if at any time she should suffer from a terminal condition , persistent vegetative state or incurable affliction, and if her attending has determined that there can be no recovery from such condition and the application of life prolonging procedures would serve only to artificially prolong the dying process, the patient directs that such procedures be withheld are withdrawn, and that she be permitted to naturally with only the administration of medication and/or the performance of any medical procedure deemed necessary to provide her with comfort care order or alleviate pain. She states she desires that nutrition and hydration be withheld are withdrawn when application of such procedure would serve only to perform long artificially the process of dying. . Objective Vital Signs Date Time Temp Pulse Resp B/P (MAP) Pulse Ox O2 Delivery O2 Flow Rate FiO2 12/12/16 19:23 98 35 12/12/16 18:00 97 12/12/16 16:00 35 12/12/16 16:00 98.4 98 23 131/74 (93) 98 12/12/16 16:00 98 12/12/16 15:50 94 35 12/12/16 15:00 97 12/12/16 14:00 99 12/12/16 13:40 100 35 12/12/16 13:00 97 12/12/16 12:49 98 35 12/12/16 12:00 98.3 102 16 132/73 (92) 98 12/12/16 12:00 35 12/12/16 12:00 102 12/12/16 11:00 103 12/12/16 10:00 103 12/12/16 09:00 101 12/12/16 08:49 98 35 12/12/16 08:00 102 12/12/16 08:00 98.5 102 16 142/68 (92) 97 12/12/16 08:00 35 12/12/16 06:00 100 12/12/16 04:46 98 35 12/12/16 04:00 102 12/12/16 04:00 35 12/12/16 04:00 97.1 102 19 148/72 (97) 99 12/12/16 02:44 97.2 97 14 159/74 100 12/12/16 02:00 92 12/12/16 01:33 100 35 12/12/16 00:00 80 12/12/16 00:00 35 12/12/16 00:00 97.2 80 15 132/63 (86) 98 12/11/16 23:16 98 35 12/11/16 23:09 97.0 80 14 124/58 99 12/11/16 22:53 97.2 83 14 133/60 99 12/11/16 22:00 75 12/11/16 21:37 97.0 75 14 107/50 98 . Physical Exam CONSTITUTIONAL/GENERAL: This is an adequately nourished patient, elderly female patient currently sedated with propofol on mechanical ventilator status post tracheostomy and PEG tube placement TUBES/LINES/DRAINS: Castillo catheter, , peripheral IVs; soft restraints, tracheostomy; PEG SKIN: No jaundice, rashes, or lesions. Ecchymoses on upper extremities. Bruising and edema noted on upper extremities bilaterally. HEAD: Atraumatic. Normocephalic. 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 No scleral icterus. No injection or drainage. Fundi not examined. ENT: Nose without bleeding or purulent drainage. No bright red blood or dried blood seen in oropharynx. NECK: Supple, trachea midline. CARDIOVASCULAR: Irregular. + Murmur RESPIRATORY/CHEST: Status post tracheostomy on mechanical ventilator No accessory muscles used GASTROINTESTINAL: Status post exploratory laparotomy. PEG tube in place--no active bleeding seen at this time. GENITOURINARY: Without palpable bladder distension. Castillo catheter in place. MUSCULOSKELETAL: Extremities without clubbing, cyanosis. + Peripheral edema. Moderate edema in upper extremities bilaterally LYMPHATICS: Not examined NEUROLOGICAL: Sedated on propofol. Withdraws to noxious stimuli, otherwise unresponsive. PSYCHIATRIC: Unable to assess secondary to patient's clinical condition . Diagnostic Tests Laboratory Laboratory Tests Test 12/10/16 08:25 12/11/16 05:55 12/11/16 08:40 12/11/16 15:37 White Blood Count 10.2 TH/MM3 (4.0-11.0) 16.1 TH/MM3 (4.0-11.0) 13.2 TH/MM3 (4.0-11.0) Red Blood Count 3.03 MIL/MM3 (4.00-5.30) 2.63 MIL/MM3 (4.00-5.30) 2.40 MIL/MM3 (4.00-5.30) Hemoglobin 8.5 GM/DL (11.6-15.3) 7.2 GM/DL (11.6-15.3) 6.5 GM/DL (11.6-15.3) Hematocrit 25.1 % (35.0-46.0) 21.8 % (35.0-46.0) 19.8 % (35.0-46.0) Mean Corpuscular Volume 83.0 FL (80.0-100.0) 83.0 FL (80.0-100.0) 82.6 FL (80.0-100.0) Mean Corpuscular Hemoglobin 27.9 PG (27.0-34.0) 27.5 PG (27.0-34.0) 27.1 PG (27.0-34.0) Mean Corpuscular Hemoglobin Concent 33.7 % (32.0-36.0) 33.2 % (32.0-36.0) 32.8 % (32.0-36.0) Red Cell Distribution Width 17.0 % (11.6-17.2) 16.6 % (11.6-17.2) 16.9 % (11.6-17.2) Platelet Count 45 TH/MM3 (150-450) 37 TH/MM3 (150-450) 37 TH/MM3 (150-450) Mean Platelet Volume 10.6 FL (7.0-11.0) 11.6 FL (7.0-11.0) 11.3 FL (7.0-11.0) Neutrophils (%) (Auto) 88.7 % (16.0-70.0) 94.2 % (16.0-70.0) 93.0 % (16.0-70.0) Lymphocytes (%) (Auto) 6.9 % (9.0-44.0) 4.6 % (9.0-44.0) 5.7 % (9.0-44.0) Monocytes (%) (Auto) 3.1 % (0.0-8.0) 1.0 % (0.0-8.0) 1.1 % (0.0-8.0) Eosinophils (%) (Auto) 0.7 % (0.0-4.0) 0.1 % (0.0-4.0) 0.0 % (0.0-4.0) Basophils (%) (Auto) 0.6 % (0.0-2.0) 0.1 % (0.0-2.0) 0.2 % (0.0-2.0) Neutrophils # (Auto) 9.1 TH/MM3 (1.8-7.7) 15.2 TH/MM3 (1.8-7.7) 12.2 TH/MM3 (1.8-7.7) Lymphocytes # (Auto) 0.7 TH/MM3 (1.0-4.8) 0.7 TH/MM3 (1.0-4.8) 0.8 TH/MM3 (1.0-4.8) Monocytes # (Auto) 0.3 TH/MM3 (0-0.9) 0.2 TH/MM3 (0-0.9) 0.1 TH/MM3 (0-0.9) Eosinophils # (Auto) 0.1 TH/MM3 (0-0.4) 0.0 TH/MM3 (0-0.4) 0.0 TH/MM3 (0-0.4) Basophils # (Auto) 0.1 TH/MM3 (0-0.2) 0.0 TH/MM3 (0-0.2) 0.0 TH/MM3 (0-0.2) CBC Comment AUTO DIFF AUTO DIFF AUTO DIFF Differential Total Cells Counted 100 Neutrophils % (Manual) 83 % (16-70) Band Neutrophils % 11 % (0-6) Lymphocytes % 4 % (9-44) Monocytes % 2 % (0-8) Neutrophils # (Manual) 9.6 TH/MM3 (1.8-7.7) Differential Comment FINAL DIFF MANUAL AUTO DIFF CONFIRMED AUTO DIFF CONFIRMED Platelet Estimate LOW (NORMAL) LOW (NORMAL) LOW (NORMAL) Platelet Morphology Comment ENLARGED (NORMAL) ENLARGED (NORMAL) NORMAL (NORMAL) Acanthocytes 1+ (NORMAL) 1+ (NORMAL) 1+ (NORMAL) Keratocytes OCC (NORMAL) OCC (NORMAL) OCC (NORMAL) Blood Urea Nitrogen 9 MG/DL (7-18) 16 MG/DL (7-18) Creatinine 0.67 MG/DL (0.50-1.00) 0.87 MG/DL (0.50-1.00) Random Glucose 77 MG/DL (74-106) 130 MG/DL (74-106) Calcium Level 8.3 MG/DL (8.5-10.1) 7.9 MG/DL (8.5-10.1) Sodium Level 140 MEQ/L (136-145) 138 MEQ/L (136-145) Potassium Level 3.0 MEQ/L (3.5-5.1) 4.3 MEQ/L (3.5-5.1) Chloride Level 109 MEQ/L (98-107) 110 MEQ/L (98-107) Carbon Dioxide Level 18.8 MEQ/L (21.0-32.0) 18.8 MEQ/L (21.0-32.0) Anion Gap 12 MEQ/L (5-15) 9 MEQ/L (5-15) Estimat Glomerular Filtration Rate 83 ML/MIN (>89) 62 ML/MIN (>89) Phosphorus Level 3.4 MG/DL (2.5-4.9) Magnesium Level 1.5 MG/DL (1.5-2.5) Stool C. difficile Toxin (PCR) NEGATIVE (NEGATIVE) Stl C. difficile Toxin Epiderm 027 PRESUMPTIVE NEGATIVE Prothrombin Time 11.5 SEC (9.8-11.6) Prothromb Time International Ratio 1.0 RATIO Activated Partial Thromboplast Time 28.9 SEC (24.3-30.1) Fibrinogen 500 mg/dL (227-377) Test 12/12/16 01:45 12/12/16 12:41 White Blood Count 14.5 TH/MM3 (4.0-11.0) Red Blood Count 3.11 MIL/MM3 (4.00-5.30) Hemoglobin 8.9 GM/DL (11.6-15.3) Hematocrit 25.9 % (35.0-46.0) Mean Corpuscular Volume 83.4 FL (80.0-100.0) Mean Corpuscular Hemoglobin 28.7 PG (27.0-34.0) Mean Corpuscular Hemoglobin Concent 34.5 % (32.0-36.0) Red Cell Distribution Width 15.9 % (11.6-17.2) Platelet Count 79 TH/MM3 (150-450) Mean Platelet Volume 8.6 FL (7.0-11.0) Neutrophils (%) (Auto) 94.1 % (16.0-70.0) Lymphocytes (%) (Auto) 4.7 % (9.0-44.0) Monocytes (%) (Auto) 1.0 % (0.0-8.0) Eosinophils (%) (Auto) 0.0 % (0.0-4.0) Basophils (%) (Auto) 0.2 % (0.0-2.0) Neutrophils # (Auto) 13.6 TH/MM3 (1.8-7.7) Lymphocytes # (Auto) 0.7 TH/MM3 (1.0-4.8) Monocytes # (Auto) 0.1 TH/MM3 (0-0.9) Eosinophils # (Auto) 0.0 TH/MM3 (0-0.4) Basophils # (Auto) 0.0 TH/MM3 (0-0.2) CBC Comment AUTO DIFF Differential Comment AUTO DIFF CONFIRMED Platelet Estimate LOW (NORMAL) Platelet Morphology Comment NORMAL (NORMAL) Ovalocytes (NORMAL) Acanthocytes OCC (NORMAL) Blood Urea Nitrogen 26 MG/DL (7-18) Creatinine 1.03 MG/DL (0.50-1.00) Random Glucose 144 MG/DL (74-106) Calcium Level 8.4 MG/DL (8.5-10.1) Phosphorus Level 3.4 MG/DL (2.5-4.9) Magnesium Level 2.0 MG/DL (1.5-2.5) Sodium Level 139 MEQ/L (136-145) Potassium Level 3.7 MEQ/L (3.5-5.1) Chloride Level 108 MEQ/L (98-107) Carbon Dioxide Level 19.2 MEQ/L (21.0-32.0) Anion Gap 12 MEQ/L (5-15) Estimat Glomerular Filtration Rate 51 ML/MIN (>89) Blood Gas Puncture Site RT RADIAL Blood Gas Patient Temperature 98.6 Blood Gas HCO3 18 mmol/L (22-26) Blood Gas Base Excess -5.2 mmol/L (-2-2) Blood Gas Oxygen Saturation 96 % (90-100) Arterial Blood pH 7.45 (7.380-7.420) Arterial Blood Partial Pressure CO2 27 mmHg (38-42) Arterial Blood Partial Pressure O2 130 mmHg (61-120) Arterial Blood Oxygen Content 11.3 Vol % (12.0-20.0) Arterial Blood Carboxyhemoglobin 1.7 % (0-4) Arterial Blood Methemoglobin 1.1 % (0-2) Blood Gas Hemoglobin 8.2 G/DL (12.0-16.0) Oxygen Delivery Device VENTILATOR Blood Gas Ventilator Setting AC14/650/PEEP5 Blood Gas Inspired Oxygen 35 % . Result Diagram: 12/12/16 0145 12/12/16 0145 Microbiology Microbiology Date/Time Source Procedure Growth Status 12/10/16 11:25 Sputum Endotracheal Gram Stain - Final Resulted 12/10/16 11:25 Sputum Culture - Preliminary S. Aureus Mrsa Escherichia Coli Pseudomonas Species Resulted . Imaging To help prompt me to consider important information that might be impacting today's encounter and assessment, information from prior notes written by myself or my colleagues may have been "brought forward" into today's note. My signature on this note, however, is an attestation that I personally performed the exam, history, and/or decision-making noted today, and, unless otherwise indicated, the interactions with patient, family, and staff as well as the review of records all occurred today. I also attest that the listed assessment and stated plan reflect my best clinical judgment today based on the combination of historical information, prior notes, and today's exam/ interactions. When time spent is documented, it refers only to time spent today by the signer, or if indicated, combined time spent today by collaborating physician/nurse practitioner. . Procedures 11/21/16: ERCP 11/24/16: Right IJ central line placement 11/24/16: Intubation 11/24/16: Colonoscopy/exploratory laparotomy 11/28/16: Transfusion 11/30/16: Extubation and reintubation 12/01/16: Transfusion 12/06/16: Tracheostomy 12/10/16: PEG tube placement . Assessment and Plan Disease Oriented Problem List: (1) Cecal volvulus (2) Acute metabolic encephalopathy (3) Acute respiratory failure (4) COPD (chronic obstructive pulmonary disease) (5) Stroke Comment: Imaging shows bilateral basal ganglia strokes. . (6) Systolic heart failure (7) Transaminitis (8) Atrial fibrillation with rapid ventricular response (9) Leukocytosis (10) JOSUE (acute kidney injury) Comment: Resolved . (11) Sepsis (12) GI bleed Comment: Unkown etiology . (13) GERD (gastroesophageal reflux disease) Symptom Scale: (1) Dyspnea 0-10 Scale: Unable to quantify Comment: Not tolerating C Pap trials. Dyspnea controlled with mechanical ventilation. . (2) Encephalopathy 0-10 Scale: Unable to quantify Comment: Currently requiring sedation for respiratory reasons. While sedated responds only to noxious stimuli. Not awakening off sedation. . . (3) Pain 0-10 Scale: Unable to quantify Comment: Patient is not appearing painful. Possible sources of pain might include prolonged bedbound status; recent tracheostomy; recent PEG tube placement; restraints; Castillo catheter; vascular access lines. . (4) Nausea and vomiting 0-10 Scale: Unable to quantify Pertinent Non-Medical Issues Psychosocial: Patient is originally from [place], [place]. She was adopted when she was 10 days old. to for approximately 57 years. Patient's states they have 6 children together. Four children are "HIS"; one child is "HERS' and two children are "THEIRS." Three of the children live in [place] , and the other children in [place]. Daughter, Chyna lives in [place]. The patient lives in [place] in a elder mobile home community with her . Her was working at [employer] until recently, and the patient was working at the [employer] in [place] until approximately 7 years ago. 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 Legal: Patient's and son are designated as health care surrogate decision makers. Ethical issues impacting care: No known ethical issues impacting care at this time. . Important Contacts * Seun Forde, : [phone] * Chyna Alatorre, daughter: [phone] . Prognosis Patient is a critically ill, 86-year-old female status post exploratory laparotomy on 11/24/16 secondary to cecal volvulus with right colectomy and cholecystectomy. Patient's hospital course has been complicated by severe sepsis and multiorgan dysfunction. She has required Levophed and Cardizem drip for rate control. She has acute respiratory failure and is ventilator dependent ; acute toxic metabolic encephalopathy. She tolerated extubation x 1.5 hours on 11/30/[address] of the chest revealed severe emphysema with bilateral upper and lower lobe infiltrates. Now s/p tracheostomy and PEG tube placement. New GI bleed on 12/11/16. If the patient survives this hospitalization, she will likely experience ongoing setbacks and complications making her overall prognosis poor. . Code Status: Full Code Plan == Code Status: FULL CODE == Decision-making: Patient is incapacitated and will unlikely regain capacity. Patient's and son (both named Seun Forde) are designated as the health care surrogate decision makers. == Goals of medical treatment: Goals are aggressive per and son. It should be noted however that... * A living will was completed on 04/26/2016 and is accessible and the patient's EMR. Patient states if at any time she should suffer from a terminal condition , persistent vegetative state or incurable affliction, and if her attending has determined that there can be no recovery from such condition and the application of life prolonging procedures would serve only to artificially prolong the dying process, the patient directs that such procedures be withheld are withdrawn, and that she be permitted to naturally with only the administration of medication and/or the performance of any medical procedure deemed necessary to provide her with comfort care order or alleviate pain. She states she desires that nutrition and hydration be withheld are withdrawn when application of such procedure would serve only to perform long artificially the process of dying. * Patient's was critically ill; withdrawal of life support was recommended; but recovered to have quality of life. This story is driving aggressive goals for patient. ==Symptom management - * N/V: Ileus appeared to be resolving. Now with new GI bleed of uncertain etiology and not tolerating tube feeds. Gatroparesis? Await results of CT abd/ pelvis. * Pain: Patient is on propofol and not showing signs of pain. Sources of pain might be from recent procedures -- laparotomy; tracheostomy; PEG tube placement. Other sources might be prolonged bedbound status; castillo catheter; venous access catheters; restraints; etc. Has order in place for fentanyl drip if needed. No further recommendations at this time. * Encephalopathy: Neurology was consulted secondary to acute encephalopathy, possibly related to infection. 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 No recommendations at this time. * Dyspnea: CT chest showing severe underlying emphysema; bilateral upper and lower lobe infiltrates likely secondary to aspiration. MRSA + E coli + Pseudomonas are now growing in sputum. Not tolerating CPAP trials. Anticipate difficulty getting her off the vent. ==Palliative care will continue to follow this patient to establish trust, assist with symptom management and clarification of medical treatment goals. . Time Spent Total Floor Time (mins): 36 (Total time included chart review, patient exam; collaboration with nursing staff; bedside discussion with spouse.) Face to Face Time (mins): 24 >50% Counseling/Coord of Care: Yes Attestation To help prompt me to consider important information that might be impacting today's encounter and assessment, information from prior notes written by myself or my colleagues may have been "brought forward" into today's note. My signature on this note, however, is an attestation that I personally performed the exam, history, and/or decision-making noted today, and, unless otherwise indicated, the interactions with patient, family, and staff as well as the review of records all occurred today. I also attest that the listed assessment and stated plan reflect my best clinical judgment today based on the combination of historical information, prior notes, and today's exam/ interactions. When time spent is documented, it refers only to time spent today by the signer, or if indicated, combined time spent today by collaborating physician/nurse practitioner. . Pablito Collier MD Dec 12, 2016 21:07
[2016-12-12] MEDS ORDERED: IOHEXOL 350 MG/ML 10 ML VIAL (for RAD DIAG) IVCONTRAST ONE (21:40)
--- NOTE | 2016-12-12 22:56 | RADRPT ---
EXAM DATE/TIME: 12/12/2016 21:21 [facility] COMPARISON: CT ABDOMEN & PELVIS W/O CONTRAST, November 20, 2016, 15:16. CT ABDOMEN & PE LVIS W CONTRAST, September 24, 2014, 5:39. INDICATIONS : Evaluate for bowel obstruction. IV CONTRAST: 90 cc Omnipaque 350 (iohexol) IV ORAL CONTRAST: Prescribed oral contrast ingested. RADIATION DOSE: 10.63 CTDIvol (mGy) MEDICAL HISTORY : Hypertension. Cardiovascular disease SURGICAL HISTORY : CABG Hysterectomy. sling ENCOUNTER: Initial ACUITY: 1 day PAIN SCALE: Non-responsive LOCATION: Abdomen TECHNIQUE: Volumetric scanning of the abdomen and pelvis was performed. Using automated exposure control and adjustment of the mA and/or kV according to patient size, radiation dose was kept as low as reasonably achievable to obtain optimal diagnostic quality images. DICOM format image data is av ailable electronically for review and comparison. FINDINGS: There is a G-tube in place. There is some contrast seen in the distal esophagus or wit hin a mild hiatal hernia. There is prominent thickening of the distal transverse colon. The distal transverse colon measures up to 2.2 cm in mural thickening. There do appear to be bowel anastomosis sutures at the proximal to mid transverse colon. It appears the patient is status post partial colec kalin with resection of the ascending colon. Significantly dilated small bowel is not seen. There appears to be hypertrophy at the left lobe and caudate and some nodularity to the liver surface concerning for possible cirrhosis. No focal hepatic lesions are seen. The spleen is not enlarged. The spleen is heterogeneous. The pancreas is unremarkable. There is a 1.9 cm low density mass seen at the right adrenal gland. This is thought to represent an adenoma. It measures 9 Hounsfield units o n this postcontrast examination. There is a similar but smaller appearing lesion at the anterior lef t adrenal gland measuring 1.1 cm. Both kidneys demonstrate normal enhancement. There is cystic rivera ge seen bilaterally. No hydronephrosis is seen. The patient appears to be status post cholecystecto my. The gallbladder is not seen. There is a moderate amount of ascites seen throughout the peritonea l cavity. There is a small focus of air seen within the urinary bladder. The urinary bladder is otherwise unre markable. No pelvic mass is seen. There is dense consolidation at the left lower lobe. There is chronic interstitial and emphysematous change seen at the right base. The bony structures are unremarkable. CONCLUSION: 1. Thickening of the transverse colon. This is concerning for colitis. 2. It appears the patient is status post resection of the ascending colon. There is a bowel anastomos is suture seen at the proximal to mid transverse colon. 3. Hypertrophy of the left lobe and caudate of the liver and a questionable nodular surface. This cou ld potentially represent changes of cirrhosis. There is moderate ascites seen. 4. G-tube in place. 5. Oral contrast is seen in the distal esophagus or within a mild hiatal hernia. 6. Bilateral renal cysts. 7. Suspected bilateral adrenal gland adenomas. Giovani Ruiz MD on December 12, 2016 at 22:34 Board Certified Radiologist. This report was verified electronically.
--- NOTE | 2016-12-12 22:56 | HHI.IDPN ---
Subjective Subjective Remarks delayed entry pt seen around 181 pt remains unresponsive not tolerating TF, even trickle feeds having diarrhea Antibiotics zosyn vancomycin Lines Line sites with no e.o infection Past Medical History reviewed Allergies: Coded Allergies: No Known Allergies (Unverified , 11/24/16) Objective . Vital Signs Date Time Temp Pulse Resp B/P (MAP) Pulse Ox O2 Delivery O2 Flow Rate FiO2 12/12/16 21:30 97 35 12/12/16 19:23 98 35 12/12/16 18:00 97 12/12/16 16:00 35 12/12/16 16:00 98.4 98 23 131/74 (93) 98 12/12/16 16:00 98 12/12/16 15:50 94 35 12/12/16 15:00 97 12/12/16 14:00 99 12/12/16 13:40 100 35 12/12/16 13:00 97 12/12/16 12:49 98 35 12/12/16 12:00 98.3 102 16 132/73 (92) 98 12/12/16 12:00 35 12/12/16 12:00 102 12/12/16 11:00 103 12/12/16 10:00 103 12/12/16 09:00 101 12/12/16 08:49 98 35 12/12/16 08:00 102 12/12/16 08:00 98.5 102 16 142/68 (92) 97 12/12/16 08:00 35 12/12/16 06:00 100 12/12/16 04:46 98 35 12/12/16 04:00 102 12/12/16 04:00 35 12/12/16 04:00 97.1 102 19 148/72 (97) 99 12/12/16 02:44 97.2 97 14 159/74 100 12/12/16 02:00 92 12/12/16 01:33 100 35 12/12/16 00:00 80 12/12/16 00:00 35 12/12/16 00:00 97.2 80 15 132/63 (86) 98 12/11/16 23:16 98 35 12/11/16 23:09 97.0 80 14 124/58 99 12/12/16 12/12/16 12/13/16 15:00 23:00 07:00 Intake Total 400 ml 137 ml Output Total 500 ml Balance 400 ml -363 ml IV Total 400 ml Tube Feeding 87 ml Other 50 ml Output Urine Total 500 ml # Voids 1 # Bowel Movements 2 . Laboratory Tests Test 12/11/16 05:55 12/11/16 15:37 12/12/16 01:45 White Blood Count 16.1 TH/MM3 13.2 TH/MM3 14.5 TH/MM3 Red Blood Count 2.63 MIL/MM3 2.40 MIL/MM3 3.11 MIL/MM3 Hemoglobin 7.2 GM/DL 6.5 GM/DL 8.9 GM/DL Hematocrit 21.8 % 19.8 % 25.9 % Mean Corpuscular Volume 83.0 FL 82.6 FL 83.4 FL Mean Corpuscular Hemoglobin 27.5 PG 27.1 PG 28.7 PG Mean Corpuscular Hemoglobin Concent 33.2 % 32.8 % 34.5 % Red Cell Distribution Width 16.6 % 16.9 % 15.9 % Platelet Count 37 TH/MM3 37 TH/MM3 79 TH/MM3 Mean Platelet Volume 11.6 FL 11.3 FL 8.6 FL Neutrophils (%) (Auto) 94.2 % 93.0 % 94.1 % Lymphocytes (%) (Auto) 4.6 % 5.7 % 4.7 % Monocytes (%) (Auto) 1.0 % 1.1 % 1.0 % Eosinophils (%) (Auto) 0.1 % 0.0 % 0.0 % Basophils (%) (Auto) 0.1 % 0.2 % 0.2 % Neutrophils # (Auto) 15.2 TH/MM3 12.2 TH/MM3 13.6 TH/MM3 Lymphocytes # (Auto) 0.7 TH/MM3 0.8 TH/MM3 0.7 TH/MM3 Monocytes # (Auto) 0.2 TH/MM3 0.1 TH/MM3 0.1 TH/MM3 Eosinophils # (Auto) 0.0 TH/MM3 0.0 TH/MM3 0.0 TH/MM3 Basophils # (Auto) 0.0 TH/MM3 0.0 TH/MM3 0.0 TH/MM3 CBC Comment AUTO DIFF AUTO DIFF AUTO DIFF Differential Comment AUTO DIFF CONFIRMED AUTO DIFF CONFIRMED AUTO DIFF CONFIRMED Platelet Estimate LOW LOW LOW Platelet Morphology Comment ENLARGED NORMAL NORMAL Acanthocytes 1+ 1+ OCC Keratocytes OCC OCC Ovalocytes Laboratory Tests Test 12/11/16 05:55 12/12/16 01:45 Blood Urea Nitrogen 16 MG/DL 26 MG/DL Creatinine 0.87 MG/DL 1.03 MG/DL Random Glucose 130 MG/DL 144 MG/DL Calcium Level 7.9 MG/DL 8.4 MG/DL Phosphorus Level 3.4 MG/DL 3.4 MG/DL Magnesium Level 1.5 MG/DL 2.0 MG/DL Sodium Level 138 MEQ/L 139 MEQ/L Potassium Level 4.3 MEQ/L 3.7 MEQ/L Chloride Level 110 MEQ/L 108 MEQ/L Carbon Dioxide Level 18.8 MEQ/L 19.2 MEQ/L Anion Gap 9 MEQ/L 12 MEQ/L Estimat Glomerular Filtration Rate 62 ML/MIN 51 ML/MIN Microbiology Date/Time Source Procedure Growth Status 12/10/16 11:25 Sputum Endotracheal Gram Stain - Final Resulted 12/10/16 11:25 Sputum Culture - Preliminary S. Aureus Mrsa Escherichia Coli Pseudomonas Species Resulted Imaging Last Impressions Chest X-Ray 12/12/16 0000 Signed Impressions: Service Date/Time: Monday, December 12, 2016 10:24 - CONCLUSION: Stable chest appearance Giovani Ritter MD Abdomen X-Ray 12/07/16 0000 Signed Impressions: Service Date/Time: Wednesday, December 07, 2016 10:02 - CONCLUSION: 1. Improved mild adynamic ileus bowel gas pattern. Sam Buckner MD Chest CT 12/01/16 0000 Signed Impressions: Service Date/Time: Thursday, December 01, 2016 08:13 - CONCLUSION: 1. Severe emphysema with bilateral airspace consolidation in a patchy distribution involving the upper and lower lobes but most severe in the left lower lobe. There is also a trace left pleural effusion. Imaging findings are nonspecific but infection or aspiration should be considerations. 2. Coronary artery calcification. Giovani Lopez MD Abdomen/Pelvis CT 12/01/16 0000 Signed Impressions: Service Date/Time: Thursday, December 01, 2016 08:13 - CONCLUSION: 1. No acute finding is identified to explain the blood in stool. There are postsurgical findings suggesting prior right hemicolectomy. Colon contains a fluid and air and there is sigmoid diverticulosis. 2. Small volume of free fluid in the abdomen and pelvis. Also, there is mild diffuse subcutaneous edema. Giovani Lopez MD Head CT 11/27/16 0000 Signed Impressions: Service Date/Time: Sunday, November 27, 2016 14:47 - CONCLUSION: 1. Questionable edema or subacute infarct in the left parietal deep white matter. This would be better evaluated with MRI. No intracranial hemorrhage or significant mass effect. Romario Kauffman MD Brain MRI 11/27/16 0000 Signed Impressions: Service Date/Time: Sunday, November 27, 2016 18:10 - CONCLUSION: 1. Moderate periventricular and subcortical white matter small vessel ischemic changes bilaterally. 2. 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 3. No acute infarct, acute hemorrhage, mass effect or extra-axial fluid collection. 4. Fluid level within sphenoid sinuses. 5. Fluid within the mastoid air cells bilaterally. Hasmukh Oakes MD Abdomen Ultrasound 11/23/16 0000 Signed Impressions: Service Date/Time: Wednesday, November 23, 2016 19:33 - CONCLUSION: 1. Somewhat limited study. Proximal superior mesenteric artery appears patent. 2. Mildly elevated flow velocities in the celiac and hepatic arteries of doubtful clinical significance. Giovani Martinez MD GI Procedure 11/21/16 0000 Signed Impressions: Service Date/Time: Monday, November 21, 2016 10:44 - CONCLUSION: ERCP as above. Reymundo Wilburn MD FACR Physical Exam CONSTITUTIONAL/GENERAL: This is an adequately nourished patient, in no apparent distress. sedated int'd on vent TUBES/LINES/DRAINS: SKIN: No jaundice, rashes, or lesions. Skin temperature appropriate. Not diaphoretic. EYES: OD - prosthesis Fundi not examined. CARDIOVASCULAR: Regular rate and rhythm + 2/6 systolic murmur, no gallops, or rubs. No JVD. Peripheral pulses symmetric. Well perfused perifery RESPIRATORY/CHEST: Symmetric, unlabored respirations. Rhonchi to auscultation. Breath sounds equal bilaterally. No wheezes, rales, or rhonchi. GASTROINTESTINAL:Abd minimally distended, soft ; no reaction to palpation incision is healing, clean, closed triston in BS hypoactive GENITOURINARY: Without palpable bladder distension. Sanchez catheter in place with small amount of dark yellow urine MUSCULOSKELETAL: Extremities without clubbing, , much improved edema, just trace now . improved cyanosis feet, fingers NEUROLOGICAL: sedated unresponsive PSYCHIATRIC: unable to assess Assessment & Plan Remarks Volvulus sp colon resection and cholecystectomy path benign:cecum volvulus and chronic calculous cholecstitis Sepsis from intraabdominal source (leukocytosis, leukemoid reaction, hypoxia, JOSUE) PNA, MRSA, GNB- ID P: ?aspiration, - GNB is new Recurrent VDRF - sp reintubation Melena: CT unremarkable Diarrhea, C.diff negative Thrombocytopenia : ? zyvox contributing; improved - zyvox stopped Ileus Critically ill Rec: fu WBC monitor plts cont zosyn, cont fluconazol cont vancomycin fu 2nd GNB in sputum clx fu CT result dw Sharon Warren MD Dec 12, 2016 22:56
[2016-12-13] VITALS (19 sets, daily range): BP systolic 115–144; BP diastolic 56–80; PULSE 92–109; RESP 14–45; TEMP 97.1–98.3; O2SAT 95–100
[2016-12-13] MEDS: INSULIN NovoLIN REGULAR SUPPLEMENTAL SCALE SQ SCH ×7 (00:15→23:57)
[2016-12-13 00:35] LABS: AUTOMATED NEUTROPHIL # 12.7 TH/MM3 (1.8-7.7); BASOPHIL % 0.2 % (0.0-2.0); EOSINOPHIL % 0.1 % (0.0-4.0); LYMPH % 4.4 % (9.0-44.0); LYMPHOCYTE # 0.6 TH/MM3 (1.0-4.8); MEAN CELL VOLUME 83.2 FL (80.0-100.0); MEAN CORPUSCULAR HEMOGLOBIN 28.5 PG (27.0-34.0); MEAN CORPUSCULAR HGB CONC 34.3 % (32.0-36.0); NEUT % 93.3 % (16.0-70.0); PLATELET COUNT 54 TH/MM3 (150-450); RED CELL DISTRIBUTION WIDTH 16.4 % (11.6-17.2); WHITE BLOOD COUNT 13.6 TH/MM3 (4.0-11.0)
[2016-12-13 00:36] LABS: HEMO FLAGS AUTO DIFF
[2016-12-13] MEDS: methylPREDNISolone SOD SUCC 40 MG/1 ML VIAL IV PUSH SCH ×3 (00:42→21:22)
[2016-12-13] MEDS: DILTIAZEM HCL 30 MG TAB PO SCH ×5 (00:42→23:57)
[2016-12-13 01:19] LABS: ACANTHOCYTES OCC (NORMAL); PLATELET ESTIMATE SMEAR LOW (NORMAL); PLATELET MORPHOLOGY NORMAL (NORMAL); SCAN/DIFF AUTO DIFF CONFIRMED
[2016-12-13] MEDS: PIPERACIL-TAZO 3.375 GM PREMIX 50 ML IV SCH ×4 (02:04→21:21)
[2016-12-13] MEDS: VANCOMYCIN INJ 1,500 MG in SODIUM CHLORID 0.9% 500 ML INJ 500 ML IV SCH (02:05)
[2016-12-13] MEDS: PROPOFOL 1000 MG/100 ML INJ 100 ML IV PRN ×2 (02:05→23:59)
[2016-12-13] MEDS: METOCLOPRAMIDE HCL 10 MG/2 ML VIAL IV PUSH SCH ×3 (05:34→21:22)
[2016-12-13] MEDS: ARTIFICIAL TEARS OPTH SOLN 15 ML BTL LEFT EYE SCH ×3 (05:35→21:23)
[2016-12-13] MEDS: URSODIOL 300 MG CAP PO SCH ×2 (08:22→21:22)
[2016-12-13] MEDS: LACTULOSE SYRUP 20 GM/30 ML CUP NG SCH ×2 (08:22→21:22)
[2016-12-13] MEDS: SODIUM BICARBONATE 325 MG TAB NG SCH ×2 (08:23→16:51)
[2016-12-13] MEDS: PANTOPRAZOLE SODIUM 40 MG VIAL IV PUSH SCH ×2 (08:23→21:21)
[2016-12-13] MEDS: SODIUM CHLORIDE 0.9% FLUSH 10 ML FLUSH IV FLUSH SCH ×2 (08:25→21:21)
[2016-12-13] MEDS: metroNIDAZOLE 500 MG INJ 100 ML IV SCH ×3 (09:35→23:57)
--- NOTE | 2016-12-13 09:35 | HHI.CCPN ---
Subjective Remarks/Hospital Course 86 y/o woman developed worsening SOB this afternoon associated with marked leukocytosis. Recent biliary instrumentation for obstruction 48 hours ago and probable sepsis. On appropriate antibiotics. Requiring NRBM now for oxygenation to 97%. Visibly labored breathing. CXR with interstitial edema. EF 35% 2014. Move to ICU. 11/24: Patient s/p colonoscopy this morning which showed mod. diverticulosis in sigmoid colon and hemorrhoids. Remains on NRB with good sats. Afebrile. Cr increased 1.51 from 1.08. 11/25 Patient s/p Ex lap, right colectomy and cholecystectomy. She kept intubated postop went into Afib with RVR overnight and placed on Cardizem drip 10mg/hr. 11/26 Patient is sedated with Diprivan, fentanyl and intubated. Afebrile. On Cardizem drip 5mg/hr. renal function worse with Cr: 2.01 from 1.89, UOP: 1L in 24 hrs 11/27 Patient remains sedated and intubated. Off Cardizem drip. Renal function is improving with Cr: 1.67 from 2.01. Afebrile. 11/28 remains intubated sedated. Heart rate controlled. Creat 1.26. Hb 6.5. Status post 2 units PRBC today. WBC count decreased from 40,000-26,000. Creat improving 1.26 11/29: Patient A. fib with RVR currently on diltiazem drip at 15 mg an hour for rate control. Hemodynamically stable. 11/30: Heart rate better controlled today. Diltiazem drip discontinued overnight. Heart rate currently in the 70s. Tolerated PSV trials yesterday. We'll attempt extubation today if tolerates. No bowel movement. Tolerating tube feeds at 30 cc an hour 12/01: Tmax 101.7. Failed extubation trial after 1 hour yesterday. Persistently hypotensive post intubation. Transfuse 1 unit hemoglobin yesterday for melena per RN. Hemoglobin went from 7.5-11.3. CVP is 12. Enoxaparin will be held. CT thorax, abdomen and pelvis performed now. Lactate pending. Serial hemoglobins. GI consult for EGD 12/03: Patient remains sedated with Diprivan and Fentanyl and intubated. On Levophed 4 mics, Cardizem drip 2.5mg/hr. For EGD today 12/04 Patient is sedated and intubated. s/p EGD yesterday showed gastritis, no active bleeding. Remains on Cardizem 2.5mg/hr and Levophed 3 mics. Afebrile. Subjective 12/05: Afebrile. Hemoglobin stable. Off norepinephrine and diltiazem drips. Creatinine stabilizing. 12/06: No acute events reported overnight. Plan for tracheostomy at 10 AM today. Platelet count is 68,000, discussed this with Dr. Polanco. HIT screen ordered yesterday pending 12/07 Patient s/p trach yesterday sedated with Diprivan. Afebrile. 12/08 Patient is on ventilator via trach, T: 100.8 at 4am. 12/09 No events overnight sedated with Diprivan and intubated. Afebrile. 12/10 Patient remains sedated and intubated, for PEG tube placement today. 12/11 s/p PEG tube placement yesterday. Sedated with Diprivan and intubated. 12/12 Patient remains sedated and on ventilator via trach. Afebrile. Given 1unit PRBC, FFP and PLT yesterday 12/13 Patient remains intubated and on vent via trach. CT abd/pelvis last night showed possible colitis. Not tolerating enteral feeding. Objective Vital Signs Date Time Temp Pulse Resp B/P (MAP) Pulse Ox O2 Delivery O2 Flow Rate FiO2 12/13/16 08:28 95 35 12/13/16 04:00 97.1 104 25 139/77 (97) Intake and Output 12/13/16 12/13/16 12/14/16 08:00 16:00 00:00 Intake Total 710 ml Balance 710 ml Result Diagram: 12/13/16 0012 12/12/16 0145 Other Results Laboratory Tests Test 12/12/16 12:41 12/13/16 00:12 Blood Gas Puncture Site RT RADIAL Blood Gas Patient Temperature 98.6 Blood Gas HCO3 18 mmol/L Blood Gas Base Excess -5.2 mmol/L Blood Gas Oxygen Saturation 96 % Arterial Blood pH 7.45 Arterial Blood Partial Pressure CO2 27 mmHg Arterial Blood Partial Pressure O2 130 mmHg Arterial Blood Oxygen Content 11.3 Vol % Arterial Blood Carboxyhemoglobin 1.7 % Arterial Blood Methemoglobin 1.1 % Blood Gas Hemoglobin 8.2 G/DL Oxygen Delivery Device VENTILATOR Blood Gas Ventilator Setting AC14/650/PEEP5 Blood Gas Inspired Oxygen 35 % White Blood Count 13.6 TH/MM3 Red Blood Count 3.00 MIL/MM3 Hemoglobin 8.6 GM/DL Hematocrit 25.0 % Mean Corpuscular Volume 83.2 FL Mean Corpuscular Hemoglobin 28.5 PG Mean Corpuscular Hemoglobin Concent 34.3 % Red Cell Distribution Width 16.4 % Platelet Count 54 TH/MM3 Mean Platelet Volume 9.6 FL Neutrophils (%) (Auto) 93.3 % Lymphocytes (%) (Auto) 4.4 % Monocytes (%) (Auto) 2.0 % Eosinophils (%) (Auto) 0.1 % Basophils (%) (Auto) 0.2 % Neutrophils # (Auto) 12.7 TH/MM3 Lymphocytes # (Auto) 0.6 TH/MM3 Monocytes # (Auto) 0.3 TH/MM3 Eosinophils # (Auto) 0.0 TH/MM3 Basophils # (Auto) 0.0 TH/MM3 CBC Comment AUTO DIFF Differential Comment AUTO DIFF CONFIRMED Platelet Estimate LOW Platelet Morphology Comment NORMAL Acanthocytes OCC Imaging Last Impressions Chest X-Ray 12/12/16 0000 Signed Impressions: Service Date/Time: Monday, December 12, 2016 10:24 - CONCLUSION: Stable chest appearance Giovani Ritter MD Abdomen X-Ray 12/07/16 0000 Signed Impressions: Service Date/Time: Wednesday, December 07, 2016 10:02 - CONCLUSION: 1. Improved mild adynamic ileus bowel gas pattern. Sam Buckner MD Chest CT 12/01/16 0000 Signed Impressions: Service Date/Time: Thursday, December 01, 2016 08:13 - CONCLUSION: 1. Severe emphysema with bilateral airspace consolidation in a patchy distribution involving the upper and lower lobes but most severe in the left lower lobe. There is also a trace left pleural effusion. Imaging findings are nonspecific but infection or aspiration should be considerations. 2. Coronary artery calcification. Giovani Lopez MD Abdomen/Pelvis CT 12/01/16 0000 Signed Impressions: Service Date/Time: Thursday, December 01, 2016 08:13 - CONCLUSION: 1. No acute finding is identified to explain the blood in stool. There are postsurgical findings suggesting prior right hemicolectomy. Colon contains a fluid and air and there is sigmoid diverticulosis. 2. Small volume of free fluid in the abdomen and pelvis. Also, there is mild diffuse subcutaneous edema. Giovani Lopez MD Head CT 11/27/16 0000 Signed Impressions: Service Date/Time: Sunday, November 27, 2016 14:47 - CONCLUSION: 1. Questionable edema or subacute infarct in the left parietal deep white matter. This would be better evaluated with MRI. No intracranial hemorrhage or significant mass effect. Romario Kauffman MD Brain MRI 11/27/16 0000 Signed Impressions: Service Date/Time: Sunday, November 27, 2016 18:10 - CONCLUSION: 1. Moderate periventricular and subcortical white matter small vessel ischemic changes bilaterally. 2. 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 3. No acute infarct, acute hemorrhage, mass effect or extra-axial fluid collection. 4. Fluid level within sphenoid sinuses. 5. Fluid within the mastoid air cells bilaterally. Hasmukh Oakes MD Abdomen Ultrasound 11/23/16 0000 Signed Impressions: Service Date/Time: Wednesday, November 23, 2016 19:33 - CONCLUSION: 1. Somewhat limited study. Proximal superior mesenteric artery appears patent. 2. Mildly elevated flow velocities in the celiac and hepatic arteries of doubtful clinical significance. Giovani Martinez MD GI Procedure 11/21/16 0000 Signed Impressions: Service Date/Time: Monday, November 21, 2016 10:44 - CONCLUSION: ERCP as above. Reymundo Wilburn MD FACR Objective Remarks GENERAL: 86 yo female, on ventilator via trach SKIN: Warm and dry. No rash HEAD: Normocephalic. EYES: No scleral icterus. No injection or drainage. 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 NECK: Supple, trachea midline. No JVD or lymphadenopathy. Trach in place CARDIOVASCULAR: RRR. S1, S2 no S4. 2/6 systolic murmur left lower sternal border/right upper sternal border RESPIRATORY: Breath sounds equal bilaterally. No accessory muscle use. GASTROINTESTINAL: Abdomen soft, tenderness on palpation. MUSCULOSKELETAL: Trace peripheral edema Neuro: Currently on propofol for sedation. Withdraws all 4 extremities to noxious stimulation. Positive gag. 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 Date of Insertion: Nov 24, 2016 Line: Central Venous Catheter Side: Right Location: Internal, Jugular A/P Assessment and Plan Neuro/Psych: History of chronic bilateral basal ganglia CVA Acute toxic metabolic encephalopathy Prosthetic left eye On propofol as needed infusion for sedation/analgesia while intubated Goal of RASS -2 Daily sedation vacation. MRI brain 11/27 showed moderate small vessel disease, old bilateral basal ganglia CVA however no acute findings. Evaluated by Dr. Roque - neurology Continue amitriptyline 10 mg at night Acetaminophen 650 mg by tube every 6 hours. Fever Pulm: Acute hypoxemic respiratory failure- Extubated and reintubated on 11/30 History of COPD ACV 18/650/35 Ventilator bundle. s/p trach 12/06 Albuterol/ipratropium aerosols every 6 hours with albuterol aerosols every 2 hours as needed for dyspnea Solumederol 40mg Q12. Continue with vent support and maintain sat >92%. SBT daily as adelina. CT chest 11/20: Severe underlying emphysema. Status post median sternotomy with postsurgical changes. CT thorax 11/30 revealed severe emphysema. Bilateral upper and lower lobe infiltrates/glass ground likely aspiration. CV: Systolic heart failure - likely chronic ejection fraction 40% Severe sepsis Atrial Fibrillation w/ RVR - normal sinus rhythm History of hypertension Severe pulmonary hypertension likely group 3 secondary to COPD PAD history of bilateral CEA On diltiazem 30 mg by mouth every 6 hours. Echo from 11/26 EF 40%, mild MR. Moderate AR/TR. Severe pulmonary HTN (PAP 70mmHg) ASA 81 mg daily held in light of GI bleeding Continue Atorvastatin 80 mg daily RENAL//FEN: Acute kidney injury resolved Monitor renal function, I/O's, avoid nephrotoxins, Nephrology is following- Dr. 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 Gastroesophageal reflux disease Transaminitis s/p PEG tube placement 12/10- Tf on hold Glucerna 1.5 with goals rate 45ml/hr GI is following. For bleeding scan. IR consulted for conversion G-J tube. 12/12: CT abd/pelvis: Possible colitis. C-diff PCR negative 12/11 12/01 KUB abdomen 12/07: Improved mild adynamic ileus bowel gas pattern. KUB 12/04 revealed mild ileus. 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 Mild head pancreatitis possible in the proper clinical setting. Patient has recently had ERCP and bile duct stone extraction. Bibasilar pneumonia developing. Tiny pleural effusion on the right US abdomen: Proximal superior mesenteric artery appears patent. Currently on lactulose 30 cc twice a day. Ammonia level 42 on 12/06 On ursodiol 300 mg by mouth twice daily. Resume when clinically indicated On metoclopramide per Dr. Polanco for bowel prokinetic medication ID: MRSA pneumonia Continue with abx per ID (Zosyn/fluconazole/Vanco) Monitor for signs of infections ( Fever, WBC) recheck sputum cx Pertinent cultures Sputum 12/10 : MRSA, E.coli, Pseudomonas BC 11/24: NGTD . Blood cultures 11/29 -no growth C. difficile negative 12/01 12/03 - blood cultures 2 - no growth 12/03, 12/07 - sputum - MRSA Heme: Leukocytosis..trending down Normocytic anemia Thrombocytopenia Monitor CBC, coags s/p transfusion 1unit PRBC, PLT, FFP yesterday. Status post 2 units PRBCs 11/28. 1 unit PRBCs 12/01 Hemoccult stool 11/30 positive HIT negative Endo: SSI with accuchecks with Novulin R every 4 hours GI prophylaxis- Pantoprazole 40mg IV twice a day DVT prophylaxis- Enoxaparin 30mg daily held in light of GI bleed, thrombocytopenia Lines: peripheral IV's Level 3 Marian Rodríguez MD Dec 13, 2016 09:35
--- NOTE | 2016-12-13 11:26 | HHI.GIFU ---
Subjective Remarks Still not tolerating TF, not trickle feeds. Liquid melanotic stool. CT indicates colitis. (Radha Jamil) Objective Vitals I&O Vital Signs Date Time Temp Pulse Resp B/P (MAP) Pulse Ox O2 Delivery O2 Flow Rate FiO2 12/13/16 08:28 95 35 12/13/16 04:00 97.1 104 25 139/77 (97) 95 12/13/16 04:00 35 12/13/16 03:39 96 35 12/13/16 00:00 98.0 100 27 143/79 (100) 97 12/13/16 00:00 35 12/12/16 23:54 98 35 12/12/16 21:30 97 35 12/12/16 20:00 98.1 99 27 154/82 (106) 98 12/12/16 20:00 35 12/12/16 19:23 98 35 12/12/16 18:00 97 12/12/16 16:00 35 12/12/16 16:00 98.4 98 23 131/74 (93) 98 12/12/16 16:00 98 12/12/16 15:50 94 35 12/12/16 15:00 97 12/12/16 14:00 99 12/12/16 13:40 100 35 12/12/16 13:00 97 12/12/16 12:49 98 35 12/12/16 12:00 98.3 102 16 132/73 (92) 98 12/12/16 12:00 35 12/12/16 12:00 102 12/12/16 11:00 103 I/O 12/12/16 12/12/16 12/12/16 12/13/16 12/13/16 12/13/16 07:00 15:00 23:00 07:00 15:00 23:00 Intake Total 1376 ml 400 ml 187 ml 710 ml Output Total 625 ml 700.0 ml Balance 751 ml 400 ml -513.0 ml 710 ml Intake Oral 0 ml 0 ml IV Total 400 ml 400 ml 50 ml 650 ml Tube Feeding 205 ml 87 ml Packed Cells 400 ml FFP 271 ml Other 100 ml 50 ml 60 ml Output Urine Total 625 ml 500 ml Tube Feeding Residual Discard 200.0 ml # Voids 1 3 # Bowel Movements 4 2 3 Laboratory Laboratory Tests Test 12/12/16 12:41 12/13/16 00:12 Blood Gas Puncture Site RT RADIAL Blood Gas Patient Temperature 98.6 Blood Gas HCO3 18 Blood Gas Base Excess -5.2 Blood Gas Oxygen Saturation 96 Arterial Blood pH 7.45 Arterial Blood Partial Pressure CO2 27 Arterial Blood Partial Pressure O2 130 Arterial Blood Oxygen Content 11.3 Arterial Blood Carboxyhemoglobin 1.7 Arterial Blood Methemoglobin 1.1 Blood Gas Hemoglobin 8.2 Oxygen Delivery Device VENTILATOR Blood Gas Ventilator Setting AC14/650/PEEP5 Blood Gas Inspired Oxygen 35 White Blood Count 13.6 Red Blood Count 3.00 Hemoglobin 8.6 Hematocrit 25.0 Mean Corpuscular Volume 83.2 Mean Corpuscular Hemoglobin 28.5 Mean Corpuscular Hemoglobin Concent 34.3 Red Cell Distribution Width 16.4 Platelet Count 54 Mean Platelet Volume 9.6 Neutrophils (%) (Auto) 93.3 Lymphocytes (%) (Auto) 4.4 Monocytes (%) (Auto) 2.0 Eosinophils (%) (Auto) 0.1 Basophils (%) (Auto) 0.2 Neutrophils # (Auto) 12.7 Lymphocytes # (Auto) 0.6 Monocytes # (Auto) 0.3 Eosinophils # (Auto) 0.0 Basophils # (Auto) 0.0 CBC Comment AUTO DIFF Differential Comment AUTO DIFF CONFIRMED Platelet Estimate LOW Platelet Morphology Comment NORMAL Acanthocytes OCC Date/Time Source Procedure Growth Status 12/03/16 15:25 Blood Peripheral Aerobic Blood Culture - Final NO GROWTH IN 5 DAYS Complete 12/03/16 15:25 Blood Peripheral Anaerobic Blood Culture - Final NO GROWTH IN 5 DAYS Complete 11/30/16 23:00 Stool Stool Stool Occult Blood (MAXINE) - Final HEMOCCULT POSITIVE Complete 12/10/16 11:25 Sputum Endotracheal Gram Stain - Final Complete 12/10/16 11:25 Sputum Culture - Final S. Aureus Mrsa Escherichia Coli Pseudomonas Aeruginosa Complete Imaging Last Impressions Chest X-Ray 12/12/16 0000 Signed Impressions: Service Date/Time: Monday, December 12, 2016 10:24 - CONCLUSION: Stable chest appearance Giovani Ritter MD Abdomen/Pelvis CT 12/12/16 0000 Signed Impressions: Service Date/Time: Monday, December 12, 2016 21:21 - CONCLUSION: 1. Thickening of the transverse colon. This is concerning for colitis. 2. It appears the patient is status post resection of the ascending colon. There is a bowel anastomosis suture seen at the proximal to mid transverse colon. 3. Hypertrophy of the left lobe and caudate of the liver and a questionable nodular surface. This could potentially represent changes of cirrhosis. There is moderate ascites seen. 4. G-tube in place. 5. Oral contrast is seen in the distal esophagus or within a mild hiatal hernia. 6. Bilateral renal cysts. 7. Suspected bilateral adrenal gland adenomas. Giovani Ruiz MD Abdomen X-Ray 12/07/16 0000 Signed Impressions: Service Date/Time: Wednesday, December 07, 2016 10:02 - CONCLUSION: 1. Improved mild adynamic ileus bowel gas pattern. Sam Buckner MD Chest CT 12/01/16 0000 Signed Impressions: Service Date/Time: Thursday, December 01, 2016 08:13 - CONCLUSION: 1. Severe emphysema with bilateral airspace consolidation in a patchy distribution involving the upper and lower lobes but most severe in the left lower lobe. There is also a trace left pleural effusion. Imaging findings are nonspecific but infection or aspiration should be considerations. 2. Coronary artery calcification. Giovani Lopez MD Head CT 11/27/16 0000 Signed Impressions: Service Date/Time: Sunday, November 27, 2016 14:47 - CONCLUSION: 1. Questionable edema or subacute infarct in the left parietal deep white matter. This would be better evaluated with MRI. No intracranial hemorrhage or significant mass effect. Romario Kauffman MD Brain MRI 11/27/16 0000 Signed Impressions: Service Date/Time: Sunday, November 27, 2016 18:10 - CONCLUSION: 1. Moderate periventricular and subcortical white matter small vessel ischemic changes bilaterally. 2. 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 3. No acute infarct, acute hemorrhage, mass effect or extra-axial fluid collection. 4. Fluid level within sphenoid sinuses. 5. Fluid within the mastoid air cells bilaterally. Hasmukh Oakes MD Abdomen Ultrasound 11/23/16 0000 Signed Impressions: Service Date/Time: Wednesday, November 23, 2016 19:33 - CONCLUSION: 1. Somewhat limited study. Proximal superior mesenteric artery appears patent. 2. Mildly elevated flow velocities in the celiac and hepatic arteries of doubtful clinical significance. Giovani Martinez MD GI Procedure 11/21/16 0000 Signed Impressions: Service Date/Time: Monday, November 21, 2016 10:44 - CONCLUSION: ERCP as above. Reymundo Wilburn MD FACR Physical Exam HEENT: Normocephalic; atraumatic; right eye prosthesis. Ventilator via trach. CHEST: coarse CARDIAC: RRR ABDOMEN: Soft, obese, mild distention, midline scar, hypoactive bowel sounds. PEG dressing dry. EXTREMITIES: Trace peripheral edema. SKIN: Normal; no rash; no jaundice. 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 (Radha JamilP) Assessment and Plan Plan ASSESSMENT - Melena, Hemoccult (+). Passing melanotic/maroon stool with clots on 11/30 and 12/01. No further episodes. S/P EGD (12/03/16)---> No active bleeding, gastritis, possible NG tube trauma. HH Stable 8.8/26.4. Tolerating TF - Anemia. S/P 3 units. HH 8.8/.4. PPI - Ileus, Abdominal distention in patient with recent right colectomy. CT scan abdomen and pelvis without contrast (12/01/16)----> No acute finding is identified to explain the blood in the stool. There are postsurgical findings suggesting prior right hemicolectomy. Colon contains a fluid and air and there is sigmoid diverticulosis. KUB 12/04-- revealed mild ileus. KUB abdomen 12/07--Improved mild adynamic ileus bowel gas pattern. Reglan. + Liquid stool - Diarrhea. CDiff negative. - Recent cecal volvulus, S/p exploratory laparotomy with right colectomy, cholecystomy, for cecal volvulus and gallstones and CBD stones (11/24/16) with Dr. Polanco. - Choledocholithiasis. S/P ERCP with removal of stones (11/21/16)---> ampulla revealed a prior sphincterotomy, 3 stones in the major papilla, s/p stone extraction with balloon sweep several times. LFT stable. T. Bili normal. - Thrombocytopenia. Platelets 61 - Sepsis/Leukocytosis, Blood cx 12/03 no growth in 4/5 days. Sputum 12/03, MRSA. WBC 11.8. ID following. Zosyn/Diflucan. - Respiratory failure, COPD, pulmonary htn. On CPAP. Per CCM - Acute kidney injury with electrolyte abnormalities. Creat 0.76. Renal following. - Afib, Systolic heart failure. Anticoagulation is on hold secondary to GI bleeding. - PAD, CVA per attending. 12/08/16--GI consulted for PEG tube placement 12/11/16 - melena, dark blood aspirated from PEG, saturating PEG dressings dark blood. Hgb dropped to 6.5, PLT 37. INR 1. 12/13/16 - still not tolerating trickle feeds, melanotic liquid stool. CT concerning for colitis, Gtube good position, cirrhosis. PLAN - hold TF - dignishield - bleed scan - IR consult for conversion to GJ - consider colonoscopy if OK with GS - Continue PPI - Monitor labs - Supportive care This pt seen by myself and Dr Blackman and this note is written on her behalf (Radha Jamil) Physician Comments seen, examined agree with above bleeding scan negative tube feeding on hold ct noted if still diarrhea we will hold Lactulose for 12- days and keep Rifaximin 550 mg bid g/j tube conversion in am if recurrent bleeding consider colonoscopy/flexisigmoidoscopy -we will discuss with surgery stool c diff negative (Rosette Blackman MD) Radha Jamil Dec 13, 2016 10:27 Rosette Blackman MD Dec 13, 2016 20:46
--- NOTE | 2016-12-13 13:02 | HHI.HCPN ---
Reason for visit a. To assist with evaluation and management of symptoms including: Dyspnea, encephalopathy, pain, N/V b. To assist medical decision maker(s) with: better understanding of current medical conditions; weighing benefits/burdens of medical treatment options; making medical treatment decisions. . Subjective/Interval History Still passing some melanotic type stools. No bleeding from PEG noted. Hg is stable. CT shows probable colitis in transverse colon. Pt is not tolerating tube feeds. She is to go to [facility] this AM for GI bleeding study. Not tolerating spontaneous breathing trials. During sedation vacations she will move her head slightly -- no other response. At time of my visit, patient is sedated. No spontaneous movements. Does not withdraw to noxious stimuli. Creatinine beginning to increase. . Family/friend interactions Son, Seun, was here today but I missed him. Spoke with him for 20 minutes via phone. Updated him on patient's status including GI bleeding, inability to tolerate tube feeds, inability to tolerate spontaneous breathing trials, lack of wakefulness off sedation, no tolerance for tube feeds, etc. He reiterated how he and his family wanted to remain positive. He understands what we're telling him, but they continue to want to do everything possible to "save" his mom. I brought up the living will and her expressed wishes. He acknowledged she wouldn't want to be vent dependent for the rest of her life but he feels it is too early to say she is not going to recover and get better. He was thankful for the regular updates. . Advance Directives Living Will: Copy in medical record Health Care Surrogate: Copy in medical record Advance Directive Specifics Date completed: 04/26/2016 . Health Care Surrogate(s): Patient's and son are designated as health care surrogate decision makers. . Documented care wishes: A living will was completed on 04/26/2016 and is accessible and the patient's EMR. Patient states if at any time she should suffer from a terminal condition , persistent vegetative state or incurable affliction, and if her attending has determined that there can be no recovery from such condition and the application of life prolonging procedures would serve only to artificially prolong the dying process, the patient directs that such procedures be withheld are withdrawn, and that she be permitted to naturally with only the administration of medication and/or the performance of any medical procedure deemed necessary to provide her with comfort care order or alleviate pain. She states she desires that nutrition and hydration be withheld are withdrawn when application of such procedure would serve only to perform long artificially the process of dying. . Objective Vital Signs Date Time Temp Pulse Resp B/P (MAP) Pulse Ox O2 Delivery O2 Flow Rate FiO2 12/13/16 12:00 35 12/13/16 11:54 97 35 12/13/16 08:28 95 35 12/13/16 08:00 35 12/13/16 04:00 97.1 104 25 139/77 (97) 95 12/13/16 04:00 35 12/13/16 03:39 96 35 12/13/16 00:00 98.0 100 27 143/79 (100) 97 12/13/16 00:00 35 12/12/16 23:54 98 35 12/12/16 21:30 97 35 12/12/16 20:00 98.1 99 27 154/82 (106) 98 12/12/16 20:00 35 12/12/16 19:23 98 35 12/12/16 18:00 97 12/12/16 16:00 35 12/12/16 16:00 98.4 98 23 131/74 (93) 98 12/12/16 16:00 98 12/12/16 15:50 94 35 12/12/16 15:00 97 12/12/16 14:00 99 12/12/16 13:40 100 35 12/12/16 13:00 97 12/12/16 12:49 98 35 Intake & Output 12/13/16 12/13/16 07:00 19:00 Intake Total 760 ml Output Total 200.0 ml Balance 560.0 ml Intake Oral 0 ml IV Total 700 ml Other 60 ml Tube Feeding Residual Discard 200.0 ml # Voids 3 # Bowel Movements 3 . Physical Exam CONSTITUTIONAL/GENERAL: This is an adequately nourished patient currently sedated with propofol on mechanical ventilator status post tracheostomy and PEG tube placement TUBES/LINES/DRAINS: Castillo catheter, , peripheral IVs; soft restraints, tracheostomy; PEG SKIN: No jaundice, rashes, or lesions. Ecchymoses on upper extremities. Bruising and edema noted on upper extremities bilaterally. HEAD: Atraumatic. Normocephalic. 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 No scleral icterus. No injection or drainage. Fundi not examined. ENT: Nose without bleeding or purulent drainage. No bright red blood or dried blood seen in oropharynx. NECK: Trachea midline. CARDIOVASCULAR: Irregular. + Murmur RESPIRATORY/CHEST: Status post tracheostomy on mechanical ventilator No accessory muscles used GASTROINTESTINAL: Status post exploratory laparotomy. PEG tube in place--no active bleeding seen at this time at PEG site. GENITOURINARY: Without palpable bladder distension. Castillo catheter in place. MUSCULOSKELETAL: Extremities without clubbing, cyanosis. + Peripheral edema. Moderate edema in upper extremities bilaterally LYMPHATICS: Not examined NEUROLOGICAL: Sedated on propofol. No withdrawal to noxious stimuli.. PSYCHIATRIC: Unable to assess secondary to patient's clinical condition . Diagnostic Tests Laboratory Laboratory Tests Test 12/11/16 05:55 12/11/16 08:40 12/11/16 15:37 12/12/16 01:45 White Blood Count 16.1 TH/MM3 (4.0-11.0) 13.2 TH/MM3 (4.0-11.0) 14.5 TH/MM3 (4.0-11.0) Red Blood Count 2.63 MIL/MM3 (4.00-5.30) 2.40 MIL/MM3 (4.00-5.30) 3.11 MIL/MM3 (4.00-5.30) Hemoglobin 7.2 GM/DL (11.6-15.3) 6.5 GM/DL (11.6-15.3) 8.9 GM/DL (11.6-15.3) Hematocrit 21.8 % (35.0-46.0) 19.8 % (35.0-46.0) 25.9 % (35.0-46.0) Mean Corpuscular Volume 83.0 FL (80.0-100.0) 82.6 FL (80.0-100.0) 83.4 FL (80.0-100.0) Mean Corpuscular Hemoglobin 27.5 PG (27.0-34.0) 27.1 PG (27.0-34.0) 28.7 PG (27.0-34.0) Mean Corpuscular Hemoglobin Concent 33.2 % (32.0-36.0) 32.8 % (32.0-36.0) 34.5 % (32.0-36.0) Red Cell Distribution Width 16.6 % (11.6-17.2) 16.9 % (11.6-17.2) 15.9 % (11.6-17.2) Platelet Count 37 TH/MM3 (150-450) 37 TH/MM3 (150-450) 79 TH/MM3 (150-450) Mean Platelet Volume 11.6 FL (7.0-11.0) 11.3 FL (7.0-11.0) 8.6 FL (7.0-11.0) Neutrophils (%) (Auto) 94.2 % (16.0-70.0) 93.0 % (16.0-70.0) 94.1 % (16.0-70.0) Lymphocytes (%) (Auto) 4.6 % (9.0-44.0) 5.7 % (9.0-44.0) 4.7 % (9.0-44.0) Monocytes (%) (Auto) 1.0 % (0.0-8.0) 1.1 % (0.0-8.0) 1.0 % (0.0-8.0) Eosinophils (%) (Auto) 0.1 % (0.0-4.0) 0.0 % (0.0-4.0) 0.0 % (0.0-4.0) Basophils (%) (Auto) 0.1 % (0.0-2.0) 0.2 % (0.0-2.0) 0.2 % (0.0-2.0) Neutrophils # (Auto) 15.2 TH/MM3 (1.8-7.7) 12.2 TH/MM3 (1.8-7.7) 13.6 TH/MM3 (1.8-7.7) Lymphocytes # (Auto) 0.7 TH/MM3 (1.0-4.8) 0.8 TH/MM3 (1.0-4.8) 0.7 TH/MM3 (1.0-4.8) Monocytes # (Auto) 0.2 TH/MM3 (0-0.9) 0.1 TH/MM3 (0-0.9) 0.1 TH/MM3 (0-0.9) Eosinophils # (Auto) 0.0 TH/MM3 (0-0.4) 0.0 TH/MM3 (0-0.4) 0.0 TH/MM3 (0-0.4) Basophils # (Auto) 0.0 TH/MM3 (0-0.2) 0.0 TH/MM3 (0-0.2) 0.0 TH/MM3 (0-0.2) CBC Comment AUTO DIFF AUTO DIFF AUTO DIFF Differential Comment AUTO DIFF CONFIRMED AUTO DIFF CONFIRMED AUTO DIFF CONFIRMED Platelet Estimate LOW (NORMAL) LOW (NORMAL) LOW (NORMAL) Platelet Morphology Comment ENLARGED (NORMAL) NORMAL (NORMAL) NORMAL (NORMAL) Acanthocytes 1+ (NORMAL) 1+ (NORMAL) OCC (NORMAL) Keratocytes OCC (NORMAL) OCC (NORMAL) Blood Urea Nitrogen 16 MG/DL (7-18) 26 MG/DL (7-18) Creatinine 0.87 MG/DL (0.50-1.00) 1.03 MG/DL (0.50-1.00) Random Glucose 130 MG/DL (74-106) 144 MG/DL (74-106) Calcium Level 7.9 MG/DL (8.5-10.1) 8.4 MG/DL (8.5-10.1) Phosphorus Level 3.4 MG/DL (2.5-4.9) 3.4 MG/DL (2.5-4.9) Magnesium Level 1.5 MG/DL (1.5-2.5) 2.0 MG/DL (1.5-2.5) Sodium Level 138 MEQ/L (136-145) 139 MEQ/L (136-145) Potassium Level 4.3 MEQ/L (3.5-5.1) 3.7 MEQ/L (3.5-5.1) Chloride Level 110 MEQ/L (98-107) 108 MEQ/L (98-107) Carbon Dioxide Level 18.8 MEQ/L (21.0-32.0) 19.2 MEQ/L (21.0-32.0) Anion Gap 9 MEQ/L (5-15) 12 MEQ/L (5-15) Estimat Glomerular Filtration Rate 62 ML/MIN (>89) 51 ML/MIN (>89) Stool C. difficile Toxin (PCR) NEGATIVE (NEGATIVE) Stl C. difficile Toxin Epiderm 027 PRESUMPTIVE NEGATIVE Prothrombin Time 11.5 SEC (9.8-11.6) Prothromb Time International Ratio 1.0 RATIO Activated Partial Thromboplast Time 28.9 SEC (24.3-30.1) Fibrinogen 500 mg/dL (227-377) Ovalocytes (NORMAL) Test 12/12/16 12:41 12/13/16 00:12 Blood Gas Puncture Site RT RADIAL Blood Gas Patient Temperature 98.6 Blood Gas HCO3 18 mmol/L (22-26) Blood Gas Base Excess -5.2 mmol/L (-2-2) Blood Gas Oxygen Saturation 96 % (90-100) Arterial Blood pH 7.45 (7.380-7.420) Arterial Blood Partial Pressure CO2 27 mmHg (38-42) Arterial Blood Partial Pressure O2 130 mmHg (61-120) Arterial Blood Oxygen Content 11.3 Vol % (12.0-20.0) Arterial Blood Carboxyhemoglobin 1.7 % (0-4) Arterial Blood Methemoglobin 1.1 % (0-2) Blood Gas Hemoglobin 8.2 G/DL (12.0-16.0) Oxygen Delivery Device VENTILATOR Blood Gas Ventilator Setting AC14/650/PEEP5 Blood Gas Inspired Oxygen 35 % White Blood Count 13.6 TH/MM3 (4.0-11.0) Red Blood Count 3.00 MIL/MM3 (4.00-5.30) Hemoglobin 8.6 GM/DL (11.6-15.3) Hematocrit 25.0 % (35.0-46.0) Mean Corpuscular Volume 83.2 FL (80.0-100.0) Mean Corpuscular Hemoglobin 28.5 PG (27.0-34.0) Mean Corpuscular Hemoglobin Concent 34.3 % (32.0-36.0) Red Cell Distribution Width 16.4 % (11.6-17.2) Platelet Count 54 TH/MM3 (150-450) Mean Platelet Volume 9.6 FL (7.0-11.0) Neutrophils (%) (Auto) 93.3 % (16.0-70.0) Lymphocytes (%) (Auto) 4.4 % (9.0-44.0) Monocytes (%) (Auto) 2.0 % (0.0-8.0) Eosinophils (%) (Auto) 0.1 % (0.0-4.0) Basophils (%) (Auto) 0.2 % (0.0-2.0) Neutrophils # (Auto) 12.7 TH/MM3 (1.8-7.7) Lymphocytes # (Auto) 0.6 TH/MM3 (1.0-4.8) Monocytes # (Auto) 0.3 TH/MM3 (0-0.9) Eosinophils # (Auto) 0.0 TH/MM3 (0-0.4) Basophils # (Auto) 0.0 TH/MM3 (0-0.2) CBC Comment AUTO DIFF Differential Comment AUTO DIFF CONFIRMED Platelet Estimate LOW (NORMAL) Platelet Morphology Comment NORMAL (NORMAL) Acanthocytes OCC (NORMAL) . Result Diagram: 12/13/16 0012 12/12/16 0145 Microbiology Microbiology Date/Time Source Procedure Growth Status 12/03/16 15:25 Blood Peripheral Aerobic Blood Culture - Final NO GROWTH IN 5 DAYS Complete 12/03/16 15:25 Blood Peripheral Anaerobic Blood Culture - Final NO GROWTH IN 5 DAYS Complete 11/30/16 23:00 Stool Stool Stool Occult Blood (MAXINE) - Final HEMOCCULT POSITIVE Complete 12/10/16 11:25 Sputum Endotracheal Gram Stain - Final Complete 12/10/16 11:25 Sputum Culture - Final S. Aureus Mrsa Escherichia Coli Pseudomonas Aeruginosa Complete . Imaging Last Impressions Chest X-Ray 12/12/16 0000 Signed Impressions: Service Date/Time: Monday, December 12, 2016 10:24 - CONCLUSION: Stable chest appearance Giovani Ritter MD Abdomen/Pelvis CT 12/12/16 0000 Signed Impressions: Service Date/Time: Monday, December 12, 2016 21:21 - CONCLUSION: 1. Thickening of the transverse colon. This is concerning for colitis. 2. It appears the patient is status post resection of the ascending colon. There is a bowel anastomosis suture seen at the proximal to mid transverse colon. 3. Hypertrophy of the left lobe and caudate of the liver and a questionable nodular surface. This could potentially represent changes of cirrhosis. There is moderate ascites seen. 4. G-tube in place. 5. Oral contrast is seen in the distal esophagus or within a mild hiatal hernia. 6. Bilateral renal cysts. 7. Suspected bilateral adrenal gland adenomas. Giovani Ruiz MD Abdomen X-Ray 12/07/16 0000 Signed Impressions: Service Date/Time: Wednesday, December 07, 2016 10:02 - CONCLUSION: 1. Improved mild adynamic ileus bowel gas pattern. Sam Buckner MD Chest CT 12/01/16 0000 Signed Impressions: Service Date/Time: Thursday, December 01, 2016 08:13 - CONCLUSION: 1. Severe emphysema with bilateral airspace consolidation in a patchy distribution involving the upper and lower lobes but most severe in the left lower lobe. There is also a trace left pleural effusion. Imaging findings are nonspecific but infection or aspiration should be considerations. 2. Coronary artery calcification. Giovani Lopez MD Head CT 11/27/16 0000 Signed Impressions: Service Date/Time: Sunday, November 27, 2016 14:47 - CONCLUSION: 1. Questionable edema or subacute infarct in the left parietal deep white matter. This would be better evaluated with MRI. No intracranial hemorrhage or significant mass effect. Romario Kauffman MD Brain MRI 11/27/16 0000 Signed Impressions: Service Date/Time: Sunday, November 27, 2016 18:10 - CONCLUSION: 1. Moderate periventricular and subcortical white matter small vessel ischemic changes bilaterally. 2. 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 3. No acute infarct, acute hemorrhage, mass effect or extra-axial fluid collection. 4. Fluid level within sphenoid sinuses. 5. Fluid within the mastoid air cells bilaterally. Hasmukh Oakes MD Abdomen Ultrasound 11/23/16 0000 Signed Impressions: Service Date/Time: Wednesday, November 23, 2016 19:33 - CONCLUSION: 1. Somewhat limited study. Proximal superior mesenteric artery appears patent. 2. Mildly elevated flow velocities in the celiac and hepatic arteries of doubtful clinical significance. Giovani Martinez MD GI Procedure 11/21/16 0000 Signed Impressions: Service Date/Time: Monday, November 21, 2016 10:44 - CONCLUSION: ERCP as above. Reymundo Wilburn MD FACR . Procedures 11/21/16: ERCP 11/24/16: Right IJ central line placement 11/24/16: Intubation 11/24/16: Colonoscopy/exploratory laparotomy 11/28/16: Transfusion 11/30/16: Extubation and reintubation 12/01/16: Transfusion 12/06/16: Tracheostomy 12/10/16: PEG tube placement . Assessment and Plan Disease Oriented Problem List: (1) Cecal volvulus (2) Acute metabolic encephalopathy (3) Acute respiratory failure (4) COPD (chronic obstructive pulmonary disease) (5) Stroke Comment: Imaging shows bilateral basal ganglia strokes. . (6) Systolic heart failure (7) Transaminitis (8) Atrial fibrillation with rapid ventricular response (9) Leukocytosis (10) JOSUE (acute kidney injury) Comment: Resolved . (11) Sepsis (12) GI bleed Comment: Unkown etiology . (13) GERD (gastroesophageal reflux disease) (14) Colitis Comment: Thickening of transverse colon seen on CT of 12/13/16. . (15) Malnutrition Comment: Low albumin levels. Not tolerating tube feeds. . Symptom Scale: (1) Dyspnea 0-10 Scale: Unable to quantify Comment: Not tolerating C Pap trials. Dyspnea controlled with mechanical ventilation. . (2) Encephalopathy 0-10 Scale: Unable to quantify Comment: Currently requiring sedation for respiratory reasons. While sedated responds only to noxious stimuli. Not awakening off sedation. . . (3) Pain 0-10 Scale: Unable to quantify Comment: Patient is not appearing painful. Possible sources of pain might include prolonged bedbound status; recent tracheostomy; recent PEG tube placement; restraints; Castillo catheter; vascular access lines. . (4) Nausea and vomiting 0-10 Scale: Unable to quantify Pertinent Non-Medical Issues Psychosocial: Patient is originally from [place], [place]. She was adopted when she was 10 days old. to for approximately 57 years. Patient's states they have 6 children together. Four children are "HIS"; one child is "HERS' and two children are "THEIRS." Three of the children live in [place] , and the other children in [place]. Daughter, Chyna lives in [place]. The patient lives in [place] in a elder mobile home community with her . Her was working at [employer] until recently, and the patient was working at the [employer] in [place] until approximately 7 years ago. 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 Spiritual: Worship neyda; declines automotive wholesale parts advisor visits. Legal: Patient's and son are designated as health care surrogate decision makers. Ethical issues impacting care: No known ethical issues impacting care at this time. . Important Contacts * Seun Forde, (health care surrogate): [phone] * Seun Forde , son (co health care surrogate) : [phone] * Chyna Alatorre, daughter: [phone] . Prognosis Patient is a critically ill, 86-year-old female status post exploratory laparotomy on 11/24/16 secondary to cecal volvulus with right colectomy and cholecystectomy. Patient's hospital course has been complicated by severe sepsis and multiorgan dysfunction. She has had post op A Fib with RVR. She has required Levophed for pressure support and Cardizem drip for rate control. She has acute respiratory failure and is ventilator dependent now s/p trach. She has prolonged toxic metabolic encephalopathy. She tolerated extubation x 1.5 hours on 11/30/16 before requiring re-intubation. CT of the chest revealed severe emphysema with bilateral upper and lower lobe infiltrates. MRI of the brain shows old strokes. Now s/p tracheostomy and PEG tube placement. New GI bleed on 12/11/16. If the patient survives this hospitalization, she will likely experience ongoing setbacks and complications making her overall prognosis poor. . Code Status: Full Code Plan == Code Status: FULL CODE == Decision-making: Patient is incapacitated and will unlikely regain capacity. Patient's and son (both named Seun Forde) are designated as the health care surrogate decision makers. == Goals of medical treatment: Goals are aggressive per and son. It should be noted however that... * A living will was completed on 04/26/2016 and is accessible and the patient's EMR. Patient states if at any time she should suffer from a terminal condition , persistent vegetative state or incurable affliction, and if her attending has determined that there can be no recovery from such condition and the application of life prolonging procedures would serve only to artificially prolong the dying process, the patient directs that such procedures be withheld are withdrawn, and that she be permitted to naturally with only the administration of medication and/or the performance of any medical procedure deemed necessary to provide her with comfort care order or alleviate pain. She states she desires that nutrition and hydration be withheld are withdrawn when application of such procedure would serve only to perform long artificially the process of dying. * Patient's was critically ill himself at one time; withdrawal of life support was recommended; but recovered to have quality of life. This story is driving aggressive goals for patient. ==Symptom management - * N/V: Ileus appeared to be resolving. Now with new GI bleed of uncertain etiology and not tolerating tube feeds. CT of 12/13 showing colitis of transverse colon. * Pain: Patient is on propofol and not showing signs of pain. Sources of pain might be from recent procedures -- laparotomy; tracheostomy; PEG tube placement. Other sources might be prolonged bedbound status; castillo catheter; venous access catheters; restraints; etc. Has order in place for fentanyl drip if needed. No further recommendations at this time. * Encephalopathy: Neurology was consulted secondary to acute encephalopathy, possibly related to infection. 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 No recommendations at this time. * Dyspnea: CT chest showing severe underlying emphysema; bilateral upper and lower lobe infiltrates likely secondary to aspiration. MRSA + E coli + Pseudomonas are now growing in sputum. Not tolerating CPAP trials. Anticipate difficulty getting her off the vent. ==Palliative care will continue to follow this patient to establish trust, assist with symptom management and clarification of medical treatment goals. . Time Spent Total Floor Time (mins): 35 (Total time included chart review, pt exam, collaboration with primary nurse, above referenced phone conversation with son, and documentation. ) Face to Face Time (mins): 10 >50% Counseling/Coord of Care: Yes Attestation To help prompt me to consider important information that might be impacting today's encounter and assessment, information from prior notes written by myself or my colleagues may have been "brought forward" into today's note. My signature on this note, however, is an attestation that I personally performed the exam, history, and/or decision-making noted today, and, unless otherwise indicated, the interactions with patient, family, and staff as well as the review of records all occurred today. I also attest that the listed assessment and stated plan reflect my best clinical judgment today based on the combination of historical information, prior notes, and today's exam/ interactions. When time spent is documented, it refers only to time spent today by the signer, or if indicated, combined time spent today by collaborating physician/nurse practitioner. . Pablito Collier MD Dec 13, 2016 13:02
--- NOTE | 2016-12-13 13:40 | HHI.PR ---
Subjective Subjective Notes She is off the floor getting bleeding scan. CT a/p showed some colonic thickening, possible colitis. Anastomosis looked patent. I started flagyl for possible colitis. Bryant Polanco MD Dec 13, 2016 13:40
--- NOTE | 2016-12-13 15:48 | RADRPT ---
EXAM DATE/TIME: 12/13/2016 13:29 [facility] COMPARISON: No previous studies available for comparison. INDICATIONS : Rectal bleeding and thrombocytopenia. DOSE: 20.3 mCi Tc99m Ultratag labeled red blood cells IV IMAGIN hrs MEDICAL HISTORY : Cardiovascular disease. Hypertension. SURGICAL HISTORY : Carotid endarterectomy. CABG Colon resection. ENCOUNTER: Initial ACUITY: 1 day PAIN SCALE: 0/10 LOCATION: lower quadrant TECHNIQUE: Following the modified in vitro labeling of autologous red cells, dynamic continuous images were acqu ired for the specified interval. FINDINGS: BIODISTRIBUTION: There is a very good labeling of red cells without significant uptake in the gastric wall. There is good delineation of the blood pool of the spleen and abdominal vessels. BLEEDING: No episodes of active GI bleeding are observed during specified interval of continuous observation. CONCLUSION: No active GI bleeding Giovani Ritter MD on December 13, 2016 at 15:46 Board Certified Radiologist. This report was verified electronically.
[2016-12-13] MEDS: FLUCONAZOLE 400 MG PREMIX BAG 200 ML IV SCH (16:54)
[2016-12-13 18:08] LABS: AUTOMATED NEUTROPHIL # 10.3 TH/MM3 (1.8-7.7); BASOPHIL % 0.3 % (0.0-2.0); EOSINOPHIL % 0.4 % (0.0-4.0); HEMATOCRIT 24.5 % (35.0-46.0); LYMPH % 7.2 % (9.0-44.0); LYMPHOCYTE # 0.8 TH/MM3 (1.0-4.8); MEAN CELL VOLUME 84.3 FL (80.0-100.0); MEAN CORPUSCULAR HEMOGLOBIN 28.4 PG (27.0-34.0); MEAN CORPUSCULAR HGB CONC 33.7 % (32.0-36.0); NEUT % 89.1 % (16.0-70.0); PLATELET COUNT 44 TH/MM3 (150-450); RED CELL DISTRIBUTION WIDTH 16.5 % (11.6-17.2); WHITE BLOOD COUNT 11.5 TH/MM3 (4.0-11.0)
[2016-12-13 18:20] LABS: HEMO FLAGS AUTO DIFF
[2016-12-13 18:31] LABS: INDIRECT BILIRUBIN 0.3 MG/DL (0.0-0.8); TOTAL BILIRUBIN ADULT 0.9 MG/DL (0.2-1.0)
[2016-12-13 19:19] LABS: POTASSIUM 2.8 MEQ/L (3.5-5.1)
[2016-12-13 19:59] LABS: ACANTHOCYTES OCC (NORMAL); PLATELET ESTIMATE SMEAR LOW (NORMAL); SCAN/DIFF AUTO DIFF CONFIRMED
[2016-12-13] MEDS: ATORVASTATIN 80 MG TAB PO SCH (21:22)
[2016-12-13] MEDS: POTASSIUM CHLOR 20 MEQ PREMIX 100 ML IV PRN (22:00)
[2016-12-14] VITALS (20 sets, daily range): BP systolic 120–138; BP diastolic 58–73; PULSE 79–103; RESP 14–24; TEMP 97.4–98; O2SAT 97–100
[2016-12-14] MEDS: POTASSIUM CHLOR 20 MEQ PREMIX 100 ML IV PRN ×3 (01:37→06:33)
[2016-12-14] MEDS ORDERED: PHARMACY ORDERED LAB-VANCO TROUGH ONE (01:45)
[2016-12-14] MEDS: VANCOMYCIN INJ 1,500 MG in SODIUM CHLORID 0.9% 500 ML INJ 500 ML IV SCH (01:56)
[2016-12-14] MEDS: INSULIN NovoLIN REGULAR SUPPLEMENTAL SCALE SQ SCH ×5 (04:15→20:15)
[2016-12-14] MEDS: PIPERACIL-TAZO 3.375 GM PREMIX 50 ML IV SCH ×4 (04:32→20:15)
[2016-12-14] MEDS: METOCLOPRAMIDE HCL 10 MG/2 ML VIAL IV PUSH SCH ×3 (05:05→23:59)
[2016-12-14] MEDS: DILTIAZEM HCL 30 MG TAB PO SCH ×3 (05:06→17:53)
[2016-12-14] MEDS: ARTIFICIAL TEARS OPTH SOLN 15 ML BTL LEFT EYE SCH ×2 (05:08→13:17)
[2016-12-14 05:26] LABS: AUTOMATED NEUTROPHIL # 10.3 TH/MM3 (1.8-7.7); BASOPHIL % 0.1 % (0.0-2.0); EOSINOPHIL % 0.1 % (0.0-4.0); HEMATOCRIT 25.6 % (35.0-46.0); LYMPH % 4.2 % (9.0-44.0); LYMPHOCYTE # 0.5 TH/MM3 (1.0-4.8); MEAN CELL VOLUME 83.4 FL (80.0-100.0); MEAN CORPUSCULAR HEMOGLOBIN 28.8 PG (27.0-34.0); MEAN CORPUSCULAR HGB CONC 34.5 % (32.0-36.0); MONO % 1.8 % (0.0-8.0); NEUT % 93.8 % (16.0-70.0); PLATELET COUNT 28 TH/MM3 (150-450); RED BLOOD COUNT 3.07 MIL/MM3 (4.00-5.30); RED CELL DISTRIBUTION WIDTH 16.5 % (11.6-17.2)
--- NOTE | 2016-12-14 05:26 | RADRPT ---
EXAM DATE/TIME: 12/14/2016 04:33 [facility] COMPARISON: CHEST SINGLE AP, December 12, 2016, 10:24. INDICATIONS : Respiratory failure MEDICAL HISTORY : Hypertension. Stroke SURGICAL HISTORY : Hysterectomy. CABG. ENCOUNTER: Subsequent ACUITY: 1 week PAIN SCORE: Non-responsive. LOCATION: Bilateral chest FINDINGS: A single portable frontal view the chest is blurred by motion artifact. Tracheostomy tube and median sternotomy wires are noted. Bibasilar pulmonary infiltrates are grossly unchanged. Heart is normal in size. CONCLUSION: 1. Limited by motion artifact. 2. Unchanged bibasilar pulmonary infiltrates. Shant Dyer Jr., MD on December 14, 2016 at 5:25 Board Certified Radiologist. This report was verified electronically.
[2016-12-14 05:31] LABS: HEMO FLAGS AUTO DIFF
[2016-12-14 05:52] LABS: BICARBONATE 16.6 MEQ/L (21.0-32.0); POTASSIUM 3.5 MEQ/L (3.5-5.1)
[2016-12-14] MEDS: SODIUM BICARBONATE 325 MG TAB NG SCH ×3 (08:13→17:53)
[2016-12-14] MEDS: URSODIOL 300 MG CAP PO SCH (08:13)
[2016-12-14] MEDS: PANTOPRAZOLE SODIUM 40 MG VIAL IV PUSH SCH ×2 (08:13→20:14)
[2016-12-14] MEDS: SODIUM CHLORIDE 0.9% FLUSH 10 ML FLUSH IV FLUSH SCH (08:13)
[2016-12-14] MEDS: metroNIDAZOLE 500 MG INJ 100 ML IV SCH ×2 (08:13→16:11)
[2016-12-14] MEDS: LACTULOSE SYRUP 20 GM/30 ML CUP NG SCH (08:14)
[2016-12-14 08:38] LABS: ACANTHOCYTES 2+ (NORMAL); SCAN/DIFF AUTO DIFF CONFIRMED
--- NOTE | 2016-12-14 11:20 | PD.RAD ---
Post Procedure Progress Note Pre Procedure Diagnosis: (1) Stroke (2) Malnutrition (3) GERD (gastroesophageal reflux disease) Post Procedure Diagnosis: (1) Stroke (2) Malnutrition (3) GERD (gastroesophageal reflux disease) Procedure Date: Dec 14, 2016 Supervising Radiologist: Giovani Ritter Proceduralist/Assist: RT Sherri(R)() Anesthesia: Local, Conscious Sedation Plan of Activity Patient to Unit: Nursing Unit Patient Condition: Poor See PACS Report for procedural detail/treatment Feeding Tube Gastro/Jejunostomy Conversion Maori: 22 Giovani Ritter MD Dec 14, 2016 11:20
[2016-12-14] MEDS ORDERED: IOHEXOL 350 MG/ML 50 ML BTL (for RAD DIAG) G-TUBE ONE (11:41)
[2016-12-14] MEDS: methylPREDNISolone SOD SUCC 40 MG/1 ML VIAL IV PUSH SCH ×2 (11:43→23:59)
[2016-12-14] MEDS: PROPOFOL 1000 MG/100 ML INJ 100 ML IV PRN ×2 (11:44→23:59)
--- NOTE | 2016-12-14 11:48 | RADRPT ---
EXAM DATE/TIME: 12/14/2016 10:41 [place] COMPARISON: No previous studies available for comparison. INDICATIONS : Patient presents with complications with existing G Tube and in need of a GJ Tube. MEDICAL HISTORY : Past Medical History 1. Coronary disease. 2. Three-vessel coronary artery bypass grafting in 2005. 3. Hypertension. 4. Hyperlipidemia. 5. GERD. 6. Past history of tobacco abuse. 7. Denies diabetes. 8. Choledocholithiasis, status post ERCP with stenting SURGICAL HISTORY : 1. Three vessel coronary artery bypass grafting in 2005. 2. 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 3. Bladder suspension. 4. Hysterectomy. 5) ERCP 2014 ENCOUNTER: Initial PAIN SCORE: 0/10 FLUORO TIME: 4.8 minutes IMAGE SERIES: 1 CONTRAST: 45 cc Omnipaque (iohexol) 350 DEVICE(S): 1.) 20 Fr gastrojejunostomy tube PROCEDURE: 1. Fluoroscopically guided gastrostomy to gastrojejunostomy conversion 2. Conscious sedation with continuous EKG and oximetry monitoring. TECHNIQUE: Under sterile conditions and using aseptic technique a guidewire was passed through the previous preethi rostomy tube and the wire was manipulated into the small bowel. The prescribed gastrojejunostomy tube was placed over the guidewire. The balloon was inflated with appropriate volume of saline. Injection of positive contrast demonstrates good position of the gastric and jejunal sections of the tube. Conscious sedation was performed with the prescribed dosages and duration as above in the presence of an independent trained radiology nurse to assist in the monitoring of the patient. EKG and oximetry remained stable throughout the procedure. CONCLUSION: Uncomplicated fluoroscopic guided conversion of gastrostomy tube to gastrojejunal feeding tube as abo ve. Giovani Ritter MD on December 14, 2016 at 11:43 Board Certified Radiologist. This report was verified electronically.
--- NOTE | 2016-12-14 11:57 | HHI.PR ---
Subjective Subjective Notes Stable. Just returned from having G tube converted to G-J. Having quite a bit of pure liquid bilious stool [facility]. Objective Vitals/I&O Vital Signs Date Time Temp Pulse Resp B/P (MAP) Pulse Ox O2 Delivery O2 Flow Rate FiO2 12/14/16 08:35 100 35 12/14/16 08:13 Ventilator 12/14/16 08:00 96 12/14/16 08:00 97.8 19 120/58 (78) Labs Laboratory Tests Test 12/13/16 17:48 12/14/16 01:40 12/14/16 05:14 White Blood Count 11.5 11.0 Red Blood Count 2.90 3.07 Hemoglobin 8.2 8.8 Hematocrit 24.5 25.6 Mean Corpuscular Volume 84.3 83.4 Mean Corpuscular Hemoglobin 28.4 28.8 Mean Corpuscular Hemoglobin Concent 33.7 34.5 Red Cell Distribution Width 16.5 16.5 Platelet Count 44 28 Mean Platelet Volume 10.4 10.5 Neutrophils (%) (Auto) 89.1 93.8 Lymphocytes (%) (Auto) 7.2 4.2 Monocytes (%) (Auto) 3.0 1.8 Eosinophils (%) (Auto) 0.4 0.1 Basophils (%) (Auto) 0.3 0.1 Neutrophils # (Auto) 10.3 10.3 Lymphocytes # (Auto) 0.8 0.5 Monocytes # (Auto) 0.3 0.2 Eosinophils # (Auto) 0.0 0.0 Basophils # (Auto) 0.0 0.0 CBC Comment AUTO DIFF AUTO DIFF Differential Comment AUTO DIFF CONFIRMED AUTO DIFF CONFIRMED Platelet Estimate LOW Acanthocytes OCC 2+ Blood Urea Nitrogen 38 37 Creatinine 1.03 0.89 Random Glucose 107 146 Total Protein 5.8 Albumin 1.6 Calcium Level 8.5 8.5 Alkaline Phosphatase 96 Aspartate Amino Transf (AST/SGOT) 37 Alanine Aminotransferase (ALT/SGPT) 15 Total Bilirubin 0.9 Direct Bilirubin 0.6 Sodium Level 143 143 Potassium Level 2.8 3.5 Chloride Level 111 114 Carbon Dioxide Level 19.0 16.6 Anion Gap 13 12 Estimat Glomerular Filtration Rate 51 60 Indirect Bilirubin 0.3 Ammonia 31 Vancomycin Level Trough 18.1 Phosphorus Level 3.0 Magnesium Level 2.0 Date/Time Source Procedure Growth Status 12/03/16 15:25 Blood Peripheral Aerobic Blood Culture - Final NO GROWTH IN 5 DAYS Complete 12/03/16 15:25 Blood Peripheral Anaerobic Blood Culture - Final NO GROWTH IN 5 DAYS Complete 11/30/16 23:00 Stool Stool Stool Occult Blood (MAXINE) - Final HEMOCCULT POSITIVE Complete 12/10/16 11:25 Sputum Endotracheal Gram Stain - Final Complete 12/10/16 11:25 Sputum Culture - Final S. Aureus Mrsa Escherichia Coli Pseudomonas Aeruginosa Complete Radiology Last Impressions Chest X-Ray 11/24/16 0000 Signed Impressions: Service Date/Time: Thursday, November 24, 2016 11:57 - CONCLUSION: 1. Interval placement of nasogastric catheter with tip beyond the GE junction omitted from the image. 2. Persistent diffuse coarse interstitial prominence likely reflecting interstitial edema/pneumonia superimposed on chronic interstitial changes. 3. Stable mild bibasilar airspace disease, likely atelectasis. Sam Buckner MD Abdomen/Pelvis CT 11/23/16 0000 Signed Impressions: Service Date/Time: Wednesday, November 23, 2016 21:46 - CONCLUSION: 1. 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 2. Mild head pancreatitis possible in the proper clinical setting. Patient has recently had ERCP and bile duct stone extraction. 3. Bibasilar pneumonia developing. Tiny pleural effusion on the right. 4. Chronic findings otherwise. Giovani Martinez MD Abdomen Ultrasound 11/23/16 0000 Signed Impressions: Service Date/Time: Wednesday, November 23, 2016 19:33 - CONCLUSION: 1. Somewhat limited study. Proximal superior mesenteric artery appears patent. 2. Mildly elevated flow velocities in the celiac and hepatic arteries of doubtful clinical significance. Giovani Martinez MD GI Procedure 11/21/16 0000 Signed Impressions: Service Date/Time: Monday, November 21, 2016 10:44 - CONCLUSION: ERCP as above. Reymundo Wilburn MD FACR Chest CT 11/20/16 1407 Signed Impressions: Service Date/Time: Sunday, November 20, 2016 15:13 - CONCLUSION: 1. Severe underlying emphysema. 2. Status post median sternotomy with postsurgical changes. Maikol Paredes MD Narrative Exam Ventilated Trach in place no bleeding Abd: soft, inc c/d/i, NGT in place, mod distention. G-J tube A/P Assessment and Plan 86 yo F s/p ex lap right colectomy, cholecystectomy, for cecal volvulus and common duct stones, s/p trach Not tolerating enteral feeding. G tube converted to G J. I started flagyl for possible colitis. Dr. Blackman considering flex sig to eval which may be helpful. Possible she has diffuse adynamic ileus. Bryant Polanco MD Dec 14, 2016 11:57
[2016-12-14] MEDS: FLUCONAZOLE 400 MG PREMIX BAG 200 ML IV SCH (12:36)
--- NOTE | 2016-12-14 16:38 | HHI.GIFU ---
Subjective Remarks Sedated on vent. No GI bleeding per nurse. She is having liquid greenish colored stool in flexiseal. (Caprice Echavarria) Objective Vitals I&O Vital Signs Date Time Temp Pulse Resp B/P (MAP) Pulse Ox O2 Delivery O2 Flow Rate FiO2 12/14/16 15:22 100 35 12/14/16 14:00 92 12/14/16 12:00 35 12/14/16 12:00 93 12/14/16 12:00 97.8 93 21 128/58 (81) 97 12/14/16 10:30 100 100 12/14/16 10:00 79 12/14/16 08:35 100 35 12/14/16 08:13 100 Ventilator 35 12/14/16 08:00 35 12/14/16 08:00 96 12/14/16 08:00 97.8 96 19 120/58 (78) 100 12/14/16 06:00 89 12/14/16 04:20 100 35 12/14/16 04:00 96 12/14/16 04:00 35 12/14/16 04:00 97.7 96 22 133/73 (93) 98 12/14/16 02:00 97 12/14/16 00:59 99 35 12/14/16 00:00 35 12/14/16 00:00 98.0 94 14 138/68 (91) 99 12/14/16 00:00 94 12/13/16 22:44 99 35 12/13/16 22:00 92 12/13/16 20:25 99 35 12/13/16 20:00 97.9 96 14 136/80 (98) 99 12/13/16 20:00 96 12/13/16 20:00 35 12/13/16 18:00 92 I/O 12/13/16 12/13/16 12/13/16 12/14/16 12/14/16 12/14/16 07:00 15:00 23:00 07:00 15:00 23:00 Intake Total 710 ml 242 ml 1065 ml Output Total 600 ml Balance 710 ml 242 ml 465 ml Intake Oral 0 ml IV Total 650 ml 242 ml 1065 ml Other 60 ml Stool Total 600 ml # Voids 3 3 # Bowel Movements 3 4 Laboratory Laboratory Tests Test 12/13/16 17:48 12/14/16 01:40 12/14/16 05:14 12/14/16 12:40 White Blood Count 11.5 11.0 Red Blood Count 2.90 3.07 Hemoglobin 8.2 8.8 Hematocrit 24.5 25.6 Mean Corpuscular Volume 84.3 83.4 Mean Corpuscular Hemoglobin 28.4 28.8 Mean Corpuscular Hemoglobin Concent 33.7 34.5 Red Cell Distribution Width 16.5 16.5 Platelet Count 44 28 Mean Platelet Volume 10.4 10.5 Neutrophils (%) (Auto) 89.1 93.8 Lymphocytes (%) (Auto) 7.2 4.2 Monocytes (%) (Auto) 3.0 1.8 Eosinophils (%) (Auto) 0.4 0.1 Basophils (%) (Auto) 0.3 0.1 Neutrophils # (Auto) 10.3 10.3 Lymphocytes # (Auto) 0.8 0.5 Monocytes # (Auto) 0.3 0.2 Eosinophils # (Auto) 0.0 0.0 Basophils # (Auto) 0.0 0.0 CBC Comment AUTO DIFF AUTO DIFF Differential Comment AUTO DIFF CONFIRMED AUTO DIFF CONFIRMED Platelet Estimate LOW Acanthocytes OCC 2+ Blood Urea Nitrogen 38 37 Creatinine 1.03 0.89 Random Glucose 107 146 Total Protein 5.8 Albumin 1.6 Calcium Level 8.5 8.5 Alkaline Phosphatase 96 Aspartate Amino Transf (AST/SGOT) 37 Alanine Aminotransferase (ALT/SGPT) 15 Total Bilirubin 0.9 Direct Bilirubin 0.6 Sodium Level 143 143 Potassium Level 2.8 3.5 4.4 Chloride Level 111 114 Carbon Dioxide Level 19.0 16.6 Anion Gap 13 12 Estimat Glomerular Filtration Rate 51 60 Indirect Bilirubin 0.3 Ammonia 31 Vancomycin Level Trough 18.1 Phosphorus Level 3.0 Magnesium Level 2.0 Date/Time Source Procedure Growth Status 12/03/16 15:25 Blood Peripheral Aerobic Blood Culture - Final NO GROWTH IN 5 DAYS Complete 12/03/16 15:25 Blood Peripheral Anaerobic Blood Culture - Final NO GROWTH IN 5 DAYS Complete 11/30/16 23:00 Stool Stool Stool Occult Blood (MAXINE) - Final HEMOCCULT POSITIVE Complete 12/10/16 11:25 Sputum Endotracheal Gram Stain - Final Complete 12/10/16 11:25 Sputum Culture - Final S. Aureus Mrsa Escherichia Coli Pseudomonas Aeruginosa Complete Imaging Last Impressions Gastrostomy Tube Change 12/14/16 Signed Impressions: Service Date/Time: Wednesday, December 14, 2016 10:41 - CONCLUSION: Uncomplicated fluoroscopic guided conversion of gastrostomy tube to gastrojejunal feeding tube as above. Giovani Ritter MD Chest X-Ray 12/14/16 Signed Impressions: Service Date/Time: Wednesday, December 14, 2016 04:33 - CONCLUSION: 1. Limited by motion artifact. 2. Unchanged bibasilar pulmonary infiltrates. Shant Dyer Jr., MD GI Bleed Scan Nuclear Medicine 12/13/16 Signed Impressions: Service Date/Time: December 13:29 - CONCLUSION: No active GI bleeding Giovani Ritter MD Abdomen/Pelvis CT 12/12/16 Signed Impressions: Service Date/Time: Monday, December 12, 2016 21:21 - CONCLUSION: 1. Thickening of the transverse colon. This is concerning for colitis. 2. It appears the patient is status post resection of the ascending colon. There is a bowel anastomosis suture seen at the proximal to mid transverse colon. 3. Hypertrophy of the left lobe and caudate of the liver and a questionable nodular surface. This could potentially represent changes of cirrhosis. There is moderate ascites seen. 4. G-tube in place. 5. Oral contrast is seen in the distal esophagus or within a mild hiatal hernia. 6. Bilateral renal cysts. 7. Suspected bilateral adrenal gland adenomas. Giovani Ruiz MD Abdomen X-Ray 12/07/16 Signed Impressions: Service Date/Time: Wednesday, December 07, 2016 10:02 - CONCLUSION: 1. Improved mild adynamic ileus bowel gas pattern. Sam Buckner MD Chest CT 12/01/16 Signed Impressions: Service Date/Time: Thursday, December 01, 2016 08:13 - CONCLUSION: 1. Severe emphysema with bilateral airspace consolidation in a patchy distribution involving the upper and lower lobes but most severe in the left lower lobe. There is also a trace left pleural effusion. Imaging findings are nonspecific but infection or aspiration should be considerations. 2. Coronary artery calcification. Giovani Lopez MD Head CT 11/27/16 0000 Signed Impressions: Service Date/Time: Sunday, November 27, 2016 14:47 - CONCLUSION: 1. Questionable edema or subacute infarct in the left parietal deep white matter. This would be better evaluated with MRI. No intracranial hemorrhage or significant mass effect. Romario Kauffman MD Brain MRI 11/27/16 0000 Signed Impressions: Service Date/Time: Sunday, November 27, 2016 18:10 - CONCLUSION: 1. Moderate periventricular and subcortical white matter small vessel ischemic changes bilaterally. 2. 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 3. No acute infarct, acute hemorrhage, mass effect or extra-axial fluid collection. 4. Fluid level within sphenoid sinuses. 5. Fluid within the mastoid air cells bilaterally. Hasmukh Oakes MD Abdomen Ultrasound 11/23/16 0000 Signed Impressions: Service Date/Time: Wednesday, November 23, 2016 19:33 - CONCLUSION: 1. Somewhat limited study. Proximal superior mesenteric artery appears patent. 2. Mildly elevated flow velocities in the celiac and hepatic arteries of doubtful clinical significance. Giovani Martinez MD GI Procedure 11/21/16 0000 Signed Impressions: Service Date/Time: Monday, November 21, 2016 10:44 - CONCLUSION: ERCP as above. Reymundo Wilburn MD FACR Physical Exam HEENT: Normocephalic; atraumatic CHEST: Tracheostomy, to vent. Course breath sounds CARDIAC: RRR ABDOMEN: Soft, obese, mild distention, midline scar, G/J tube clamped, hypoactive bowel sounds. Flexiseal with liquid brown stool. EXTREMITIES: Generalized edema. 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 (Caprice EchavarriaP) Assessment and Plan Plan ASSESSMENT - Abdominal distention, high residuals with TF, in patient with recent right colectomy. CT scan abdomen and pelvis without contrast (12/01/16)----> No acute finding is identified to explain the blood in the stool. There are postsurgical findings suggesting prior right hemicolectomy. Colon contains a fluid and air and there is sigmoid diverticulosis. Rpt. CT scan abdomen and pelvis (12/12/16)---> thickening of the transverse colon, concerning for colitis. It appears the patient is status post resection of the ascending colon. There is a bowel anastomosis sutre seen at the proximal to mid transverse colon. Hypertrophy of the left lobe and caudate of the liver and a questionable nodular surface. This could potentially represent changes of cirrhosis. There is moderate ascites seen, G-tube in place. Oral contrast is seen in the distal esophagus or within a mild hiatal hernia. Bilateral renal cysts. Suspected bilateral adrenal gland adenomas. S/P Conversion of PEG to G/J tube by IR (12/14/16)- clamped. Reglan. + Liquid stool - Abnormal imaging suggesting colitis in transverse colon. CT as above- thickening of transverse colon. CDiff negative. Colonscopy (11/24/16)---> 1. There was moderate diverticulosis noted in the sigmoid, colon, 2. Retroflexed views revealed internal hemorrhoids 3. Retroflexed views revealed medium internal hemorrhoids 4. Revealed external hemorrhoids - Diarrhea. CDiff negative. - Melena, Hemoccult (+). Passing melanotic/maroon stool with clots on 11/30 and 12/01. No further episodes. S/P EGD (12/03/16)---> No active bleeding, gastritis, possible NG tube trauma. Had EGD for PEG tube placement (12/10/16)----> hiatal hernia, 200cc of gastric juice suctioned. S/P PEG. Had drop in hgb on 12/11, but has since been stable. S/ P Bleeding scan (12/13/16)---> no active bleeding. Tolerating TF - Anemia. S/P 4 units. HH 8.8/25.6. PPI No active bleeding. - Recent cecal volvulus, S/p exploratory laparotomy with right colectomy, cholecystomy, for cecal volvulus and gallstones and CBD stones (11/24/16) with Dr. Polanco. GS following. - Choledocholithiasis. S/P ERCP with removal of stones (11/21/16)---> ampulla revealed a prior sphincterotomy, 3 stones in the major papilla, s/p stone extraction with balloon sweep several times. LFT stable. T. Bili normal. - Thrombocytopenia, worsening. Platelets 28. PT 11.5, INR 1.0, Fibrinogen 500. - Sepsis/Leukocytosis, Sputum MRSA, E.Coli, PSAE. WBC 11.0. ID following. Flagyl/Vanco/Zosyn/Diflucan. - Respiratory failure, COPD, pulmonary htn. S/P tracheostomy Per [facility] - Acute kidney injury with electrolyte abnormalities. Creat 0.89. Renal following. - Afib, Systolic heart failure. Anticoagulation is on hold secondary to GI bleeding. - PAD, CVA per attending. PLAN - Glucerna 1.5 at 20cc/hr for now - Cont. Flagyl - Cont. PPI - Cont. Xifaxan - Hold lactulose for 1-2 days - Abx per ID - Monitor HH - Transfuse as necessary - Supportive care - If recurrent bleeding, consider flexible sigmoidoscopy vs. colonoscopy- okay by GS - This pt seen by myself and Dr Blackman and this note is written on her behalf (Caprice Echavarria) Caprice Echavarria Dec 14, 2016 16:38 Rosette Blackman MD Dec 14, 2016 19:37
--- NOTE | 2016-12-14 17:10 | HHI.HCPN ---
Reason for visit a. To assist with evaluation and management of symptoms including: Dyspnea, encephalopathy, pain, N/V b. To assist medical decision maker(s) with: better understanding of current medical conditions; weighing benefits/burdens of medical treatment options; making medical treatment decisions. . Subjective/Interval History Patient had G tube converted to G-J tube in interventional radiology. Tube feeds on hold. Flexi-seal in place and blackish liquid stool being passed. Failed spontaneous breathing trial today with tachypnea, desaturation, and vent asynchrony. During sedation vacation she would move her head a little per nursing staff but otherwise not awakening and unable to follow commands. Nuclear med GI bleeding study showed no active bleeding. At time of my visit, patient is sedated. No spontaneous movements. Does not withdraw to noxious stimuli. . Family/friend interactions No family/friends at bedside. No phone interactions today. . Advance Directives Living Will: Copy in medical record Health Care Surrogate: Copy in medical record Advance Directive Specifics Date completed: 04/26/2016 . Health Care Surrogate(s): Patient's and son are designated as health care surrogate decision makers. . Documented care wishes: A living will was completed on 04/26/2016 and is accessible and the patient's EMR. Patient states if at any time she should suffer from a terminal condition , persistent vegetative state or incurable affliction, and if her attending has determined that there can be no recovery from such condition and the application of life prolonging procedures would serve only to artificially prolong the dying process, the patient directs that such procedures be withheld are withdrawn, and that she be permitted to naturally with only the administration of medication and/or the performance of any medical procedure deemed necessary to provide her with comfort care order or alleviate pain. She states she desires that nutrition and hydration be withheld are withdrawn when application of such procedure would serve only to perform long artificially the process of dying. . Objective Vital Signs Date Time Temp Pulse Resp B/P (MAP) Pulse Ox O2 Delivery O2 Flow Rate FiO2 12/14/16 16:00 97 12/14/16 16:00 35 12/14/16 16:00 97.4 97 24 125/60 (81) 99 12/14/16 15:22 100 35 12/14/16 14:00 92 12/14/16 12:00 35 12/14/16 12:00 93 12/14/16 12:00 97.8 93 21 128/58 (81) 97 12/14/16 10:30 100 100 12/14/16 10:00 79 12/14/16 08:35 100 35 12/14/16 08:13 100 Ventilator 35 12/14/16 08:00 35 12/14/16 08:00 96 12/14/16 08:00 97.8 96 19 120/58 (78) 100 12/14/16 06:00 89 12/14/16 04:20 100 35 12/14/16 04:00 96 12/14/16 04:00 35 12/14/16 04:00 97.7 96 22 133/73 (93) 98 12/14/16 02:00 97 12/14/16 00:59 99 35 12/14/16 00:00 35 12/14/16 00:00 98.0 94 14 138/68 (91) 99 12/14/16 00:00 94 12/13/16 22:44 99 35 12/13/16 22:00 92 12/13/16 20:25 99 35 12/13/16 20:00 97.9 96 14 136/80 (98) 99 12/13/16 20:00 96 12/13/16 20:00 35 12/13/16 18:00 92 Intake & Output 12/14/16 12/14/16 07:00 19:00 Intake Total 1115 ml Output Total 600 ml Balance 515 ml IV Total 1115 ml Stool Total 600 ml # Voids 3 . Physical Exam CONSTITUTIONAL/GENERAL: This is an adequately nourished patient currently sedated with propofol on mechanical ventilator status post tracheostomy and G-J tube placement TUBES/LINES/DRAINS: Castillo catheter, , peripheral IVs; soft restraints, tracheostomy; G-J tube SKIN: No jaundice, rashes, or lesions. Ecchymoses on upper extremities. Bruising and edema noted on upper extremities bilaterally. 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 No scleral icterus. No injection or drainage. Fundi not examined. ENT: Nose without bleeding or purulent drainage. No bright red blood or dried blood seen in oropharynx. NECK: Trachea midline. CARDIOVASCULAR: Irregular. + Murmur RESPIRATORY/CHEST: Status post tracheostomy on mechanical ventilator No accessory muscles used GASTROINTESTINAL: Status post exploratory laparotomy. G-J tube in place--no active bleeding seen at this time at tube site. Flexiseal in place and draining GENITOURINARY: Without palpable bladder distension. Castillo catheter in place. MUSCULOSKELETAL: Extremities without clubbing, cyanosis. + Peripheral edema. Moderate edema in upper extremities bilaterally LYMPHATICS: Not examined NEUROLOGICAL: Sedated on propofol. No withdrawal to noxious stimuli.. PSYCHIATRIC: Unable to assess secondary to patient's clinical condition . Diagnostic Tests Laboratory Laboratory Tests Test 12/12/16 01:45 12/12/16 12:41 12/13/16 00:12 12/13/16 17:48 White Blood Count 14.5 TH/MM3 (4.0-11.0) 13.6 TH/MM3 (4.0-11.0) 11.5 TH/MM3 (4.0-11.0) Red Blood Count 3.11 MIL/MM3 (4.00-5.30) 3.00 MIL/MM3 (4.00-5.30) 2.90 MIL/MM3 (4.00-5.30) Hemoglobin 8.9 GM/DL (11.6-15.3) 8.6 GM/DL (11.6-15.3) 8.2 GM/DL (11.6-15.3) Hematocrit 25.9 % (35.0-46.0) 25.0 % (35.0-46.0) 24.5 % (35.0-46.0) Mean Corpuscular Volume 83.4 FL (80.0-100.0) 83.2 FL (80.0-100.0) 84.3 FL (80.0-100.0) Mean Corpuscular Hemoglobin 28.7 PG (27.0-34.0) 28.5 PG (27.0-34.0) 28.4 PG (27.0-34.0) Mean Corpuscular Hemoglobin Concent 34.5 % (32.0-36.0) 34.3 % (32.0-36.0) 33.7 % (32.0-36.0) Red Cell Distribution Width 15.9 % (11.6-17.2) 16.4 % (11.6-17.2) 16.5 % (11.6-17.2) Platelet Count 79 TH/MM3 (150-450) 54 TH/MM3 (150-450) 44 TH/MM3 (150-450) Mean Platelet Volume 8.6 FL (7.0-11.0) 9.6 FL (7.0-11.0) 10.4 FL (7.0-11.0) Neutrophils (%) (Auto) 94.1 % (16.0-70.0) 93.3 % (16.0-70.0) 89.1 % (16.0-70.0) Lymphocytes (%) (Auto) 4.7 % (9.0-44.0) 4.4 % (9.0-44.0) 7.2 % (9.0-44.0) Monocytes (%) (Auto) 1.0 % (0.0-8.0) 2.0 % (0.0-8.0) 3.0 % (0.0-8.0) Eosinophils (%) (Auto) 0.0 % (0.0-4.0) 0.1 % (0.0-4.0) 0.4 % (0.0-4.0) Basophils (%) (Auto) 0.2 % (0.0-2.0) 0.2 % (0.0-2.0) 0.3 % (0.0-2.0) Neutrophils # (Auto) 13.6 TH/MM3 (1.8-7.7) 12.7 TH/MM3 (1.8-7.7) 10.3 TH/MM3 (1.8-7.7) Lymphocytes # (Auto) 0.7 TH/MM3 (1.0-4.8) 0.6 TH/MM3 (1.0-4.8) 0.8 TH/MM3 (1.0-4.8) Monocytes # (Auto) 0.1 TH/MM3 (0-0.9) 0.3 TH/MM3 (0-0.9) 0.3 TH/MM3 (0-0.9) Eosinophils # (Auto) 0.0 TH/MM3 (0-0.4) 0.0 TH/MM3 (0-0.4) 0.0 TH/MM3 (0-0.4) Basophils # (Auto) 0.0 TH/MM3 (0-0.2) 0.0 TH/MM3 (0-0.2) 0.0 TH/MM3 (0-0.2) CBC Comment AUTO DIFF AUTO DIFF AUTO DIFF Differential Comment AUTO DIFF CONFIRMED AUTO DIFF CONFIRMED AUTO DIFF CONFIRMED Platelet Estimate LOW (NORMAL) LOW (NORMAL) LOW (NORMAL) Platelet Morphology Comment NORMAL (NORMAL) NORMAL (NORMAL) Ovalocytes (NORMAL) Acanthocytes OCC (NORMAL) OCC (NORMAL) OCC (NORMAL) Blood Urea Nitrogen 26 MG/DL (7-18) 38 MG/DL (7-18) Creatinine 1.03 MG/DL (0.50-1.00) 1.03 MG/DL (0.50-1.00) Random Glucose 144 MG/DL (74-106) 107 MG/DL (74-106) Calcium Level 8.4 MG/DL (8.5-10.1) 8.5 MG/DL (8.5-10.1) Phosphorus Level 3.4 MG/DL (2.5-4.9) Magnesium Level 2.0 MG/DL (1.5-2.5) Sodium Level 139 MEQ/L (136-145) 143 MEQ/L (136-145) Potassium Level 3.7 MEQ/L (3.5-5.1) 2.8 MEQ/L (3.5-5.1) Chloride Level 108 MEQ/L (98-107) 111 MEQ/L (98-107) Carbon Dioxide Level 19.2 MEQ/L (21.0-32.0) 19.0 MEQ/L (21.0-32.0) Anion Gap 12 MEQ/L (5-15) 13 MEQ/L (5-15) Estimat Glomerular Filtration Rate 51 ML/MIN (>89) 51 ML/MIN (>89) Blood Gas Puncture Site RT RADIAL Blood Gas Patient Temperature 98.6 Blood Gas HCO3 18 mmol/L (22-26) Blood Gas Base Excess -5.2 mmol/L (-2-2) Blood Gas Oxygen Saturation 96 % (90-100) Arterial Blood pH 7.45 (7.380-7.420) Arterial Blood Partial Pressure CO2 27 mmHg (38-42) Arterial Blood Partial Pressure O2 130 mmHg (61-120) Arterial Blood Oxygen Content 11.3 Vol % (12.0-20.0) Arterial Blood Carboxyhemoglobin 1.7 % (0-4) Arterial Blood Methemoglobin 1.1 % (0-2) Blood Gas Hemoglobin 8.2 G/DL (12.0-16.0) Oxygen Delivery Device VENTILATOR Blood Gas Ventilator Setting AC14/650/PEEP5 Blood Gas Inspired Oxygen 35 % Total Protein 5.8 GM/DL (6.4-8.2) Albumin 1.6 GM/DL (3.4-5.0) Alkaline Phosphatase 96 U/L (45-117) Aspartate Amino Transf (AST/SGOT) 37 U/L (15-37) Alanine Aminotransferase (ALT/SGPT) 15 U/L (10-53) Total Bilirubin 0.9 MG/DL (0.2-1.0) Direct Bilirubin 0.6 MG/DL (0.0-0.2) Indirect Bilirubin 0.3 MG/DL (0.0-0.8) Ammonia 31 MCMOL/L (11-32) Test 12/14/16 01:40 12/14/16 05:14 12/14/16 12:40 Vancomycin Level Trough 18.1 MCG/ML (5.0-10.0) White Blood Count 11.0 TH/MM3 (4.0-11.0) Red Blood Count 3.07 MIL/MM3 (4.00-5.30) Hemoglobin 8.8 GM/DL (11.6-15.3) Hematocrit 25.6 % (35.0-46.0) Mean Corpuscular Volume 83.4 FL (80.0-100.0) Mean Corpuscular Hemoglobin 28.8 PG (27.0-34.0) Mean Corpuscular Hemoglobin Concent 34.5 % (32.0-36.0) Red Cell Distribution Width 16.5 % (11.6-17.2) Platelet Count 28 TH/MM3 (150-450) Mean Platelet Volume 10.5 FL (7.0-11.0) Neutrophils (%) (Auto) 93.8 % (16.0-70.0) Lymphocytes (%) (Auto) 4.2 % (9.0-44.0) Monocytes (%) (Auto) 1.8 % (0.0-8.0) Eosinophils (%) (Auto) 0.1 % (0.0-4.0) Basophils (%) (Auto) 0.1 % (0.0-2.0) Neutrophils # (Auto) 10.3 TH/MM3 (1.8-7.7) Lymphocytes # (Auto) 0.5 TH/MM3 (1.0-4.8) Monocytes # (Auto) 0.2 TH/MM3 (0-0.9) Eosinophils # (Auto) 0.0 TH/MM3 (0-0.4) Basophils # (Auto) 0.0 TH/MM3 (0-0.2) CBC Comment AUTO DIFF Differential Comment AUTO DIFF CONFIRMED Acanthocytes 2+ (NORMAL) Blood Urea Nitrogen 37 MG/DL (7-18) Creatinine 0.89 MG/DL (0.50-1.00) Random Glucose 146 MG/DL (74-106) Calcium Level 8.5 MG/DL (8.5-10.1) Phosphorus Level 3.0 MG/DL (2.5-4.9) Magnesium Level 2.0 MG/DL (1.5-2.5) Sodium Level 143 MEQ/L (136-145) Potassium Level 3.5 MEQ/L (3.5-5.1) 4.4 MEQ/L (3.5-5.1) Chloride Level 114 MEQ/L (98-107) Carbon Dioxide Level 16.6 MEQ/L (21.0-32.0) Anion Gap 12 MEQ/L (5-15) Estimat Glomerular Filtration Rate 60 ML/MIN (>89) . Result Diagram: 12/14/16 0514 12/14/16 1240 Microbiology Microbiology Date/Time Source Procedure Growth Status 12/03/16 15:25 Blood Peripheral Aerobic Blood Culture - Final NO GROWTH IN 5 DAYS Complete 12/03/16 15:25 Blood Peripheral Anaerobic Blood Culture - Final NO GROWTH IN 5 DAYS Complete 11/30/16 23:00 Stool Stool Stool Occult Blood (MAXINE) - Final HEMOCCULT POSITIVE Complete 12/10/16 11:25 Sputum Endotracheal Gram Stain - Final Complete 12/10/16 11:25 Sputum Culture - Final S. Aureus Mrsa Escherichia Coli Pseudomonas Aeruginosa Complete . Imaging Last Impressions Gastrostomy Tube Change 12/14/16 0000 Signed Impressions: Service Date/Time: Wednesday, December 14, 2016 10:41 - CONCLUSION: Uncomplicated fluoroscopic guided conversion of gastrostomy tube to gastrojejunal feeding tube as above. Giovani Ritter MD Chest X-Ray 12/14/16 Signed Impressions: Service Date/Time: Wednesday, December 14, 2016 04:33 - CONCLUSION: 1. Limited by motion artifact. 2. Unchanged bibasilar pulmonary infiltrates. Shant Dyer Jr., MD GI Bleed Scan Nuclear Medicine 12/13/16 Signed Impressions: Service Date/Time: December 13:29 - CONCLUSION: No active GI bleeding Giovani Ritter MD Abdomen/Pelvis CT 12/12/16 Signed Impressions: Service Date/Time: Monday, December 12, 2016 21:21 - CONCLUSION: 1. Thickening of the transverse colon. This is concerning for colitis. 2. It appears the patient is status post resection of the ascending colon. There is a bowel anastomosis suture seen at the proximal to mid transverse colon. 3. Hypertrophy of the left lobe and caudate of the liver and a questionable nodular surface. This could potentially represent changes of cirrhosis. There is moderate ascites seen. 4. G-tube in place. 5. Oral contrast is seen in the distal esophagus or within a mild hiatal hernia. 6. Bilateral renal cysts. 7. Suspected bilateral adrenal gland adenomas. Giovani Ruiz MD Abdomen X-Ray 12/07/16 0000 Signed Impressions: Service Date/Time: Wednesday, December 07, 2016 10:02 - CONCLUSION: 1. Improved mild adynamic ileus bowel gas pattern. Sam Buckner MD Chest CT 12/01/16 0000 Signed Impressions: Service Date/Time: Thursday, December 01, 2016 08:13 - CONCLUSION: 1. Severe emphysema with bilateral airspace consolidation in a patchy distribution involving the upper and lower lobes but most severe in the left lower lobe. There is also a trace left pleural effusion. Imaging findings are nonspecific but infection or aspiration should be considerations. 2. Coronary artery calcification. Giovani Lopez MD Head CT 11/27/16 0000 Signed Impressions: Service Date/Time: Sunday, November 27, 2016 14:47 - CONCLUSION: 1. Questionable edema or subacute infarct in the left parietal deep white matter. This would be better evaluated with MRI. No intracranial hemorrhage or significant mass effect. Romario Kauffman MD Brain MRI 11/27/16 0000 Signed Impressions: Service Date/Time: Sunday, November 27, 2016 18:10 - CONCLUSION: 1. Moderate periventricular and subcortical white matter small vessel ischemic changes bilaterally. 2. 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 3. No acute infarct, acute hemorrhage, mass effect or extra-axial fluid collection. 4. Fluid level within sphenoid sinuses. 5. Fluid within the mastoid air cells bilaterally. Hasmukh Oakes MD Abdomen Ultrasound 11/23/16 0000 Signed Impressions: Service Date/Time: Wednesday, November 23, 2016 19:33 - CONCLUSION: 1. Somewhat limited study. Proximal superior mesenteric artery appears patent. 2. Mildly elevated flow velocities in the celiac and hepatic arteries of doubtful clinical significance. Giovani Martinez MD GI Procedure 11/21/16 0000 Signed Impressions: Service Date/Time: Monday, November 21, 2016 10:44 - CONCLUSION: ERCP as above. Reymundo Wilburn MD FACR . Procedures 11/21/16: ERCP 11/24/16: Right IJ central line placement 11/24/16: Intubation 11/24/16: Colonoscopy/exploratory laparotomy 11/28/16: Transfusion 11/30/16: Extubation and reintubation 12/01/16: Transfusion 12/06/16: Tracheostomy 12/10/16: PEG tube placement 12/13/16: Change from G tube to G-J tube . Assessment and Plan Disease Oriented Problem List: (1) Cecal volvulus (2) Acute metabolic encephalopathy (3) Acute respiratory failure (4) COPD (chronic obstructive pulmonary disease) (5) Stroke Comment: Imaging shows bilateral basal ganglia strokes. . (6) Systolic heart failure (7) Transaminitis (8) Atrial fibrillation with rapid ventricular response (9) Leukocytosis (10) JOSUE (acute kidney injury) Comment: Resolved . (11) Sepsis (12) GI bleed Comment: Unkown etiology . (13) GERD (gastroesophageal reflux disease) (14) Colitis Comment: Thickening of transverse colon seen on CT of 12/13/16. . (15) Malnutrition Comment: Low albumin levels. Not tolerating tube feeds. . (16) Thrombocytopenia Symptom Scale: (1) Dyspnea 0-10 Scale: Unable to quantify Comment: Not tolerating C Pap trials. Dyspnea controlled with mechanical ventilation. . (2) Encephalopathy 0-10 Scale: Unable to quantify Comment: Currently requiring sedation for respiratory reasons. While sedated responds only to noxious stimuli. Not awakening off sedation. . . (3) Pain 0-10 Scale: Unable to quantify Comment: Patient is not appearing painful. Possible sources of pain might include prolonged bedbound status; recent tracheostomy; recent PEG tube placement; restraints; Castillo catheter; vascular access lines. . (4) Nausea and vomiting 0-10 Scale: Unable to quantify Pertinent Non-Medical Issues Psychosocial: Patient is originally from [place], [place]. She was adopted when she was 10 days old. to for approximately 57 years. Patient's states they have 6 children together. Four children are "HIS"; one child is "HERS' and two children are "THEIRS." Three of the children live in [place] , and the other children in [place]. Daughter, Chyna lives in [place]. The patient lives in [place] in a elder mobile home community with her . Her was working at [employer] until recently, and the patient was working at the [employer] in [place] until approximately 7 years ago. 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 Spiritual: [employer] neyda; declines licensed psychologist visits. Legal: Patient's and son are designated as health care surrogate decision makers. Ethical issues impacting care: No known ethical issues impacting care at this time. . Important Contacts * Seun Forde, (health care surrogate): [phone] * Seun Forde , son (co health care surrogate) : [phone] * Chyna Alatorre, daughter: [phone] . Prognosis Patient is a critically ill, 86-year-old female status post exploratory laparotomy on 11/24/16 secondary to cecal volvulus with right colectomy and cholecystectomy. Patient's hospital course has been complicated by severe sepsis and multiorgan dysfunction. She has had post op A Fib with RVR. She has required Levophed for pressure support and Cardizem drip for rate control. She has acute respiratory failure and is ventilator dependent now s/p trach. She has prolonged toxic metabolic encephalopathy. She tolerated extubation x 1.5 hours on 11/30/16 before requiring re-intubation. CT of the chest revealed severe emphysema with bilateral upper and lower lobe infiltrates. MRI of the brain shows old strokes. Now s/p tracheostomy and PEG tube placement. New GI bleed on 12/11/16. If the patient survives this hospitalization, she will likely experience ongoing setbacks and complications making her overall prognosis poor. . Code Status: Full Code Plan == Code Status: FULL CODE == Decision-making: Patient is incapacitated and will unlikely regain capacity. Patient's and son (both named Seun Forde) are designated as the health care surrogate decision makers. == Goals of medical treatment: Goals are aggressive per and son. It should be noted however that... * A living will was completed on 04/26/2016 and is accessible and the patient's EMR. Patient states if at any time she should suffer from a terminal condition , persistent vegetative state or incurable affliction, and if her attending has determined that there can be no recovery from such condition and the application of life prolonging procedures would serve only to artificially prolong the dying process, the patient directs that such procedures be withheld are withdrawn, and that she be permitted to naturally with only the administration of medication and/or the performance of any medical procedure deemed necessary to provide her with comfort care order or alleviate pain. She states she desires that nutrition and hydration be withheld are withdrawn when application of such procedure would serve only to perform long artificially the process of dying. * Patient's was critically ill himself at one time; withdrawal of life support was recommended; but recovered to have quality of life. This story is driving aggressive goals for patient. ==Symptom management - * N/V: Ileus appeared to be resolving. Now with new GI bleed of uncertain etiology and not tolerating tube feeds. CT of 12/13 showing colitis of transverse colon. G tube converted to G-J tube on 12/13/16. * Pain: Patient is on propofol and not showing signs of pain. Sources of pain might be from recent procedures -- laparotomy; tracheostomy; PEG tube placement. Other sources might be prolonged bedbound status; castillo catheter; venous access catheters; restraints; etc. Has order in place for fentanyl drip if needed. No further recommendations at this time. * Encephalopathy: Neurology was consulted secondary to acute encephalopathy, possibly related to infection. 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 No recommendations at this time. * Dyspnea: CT chest showing severe underlying emphysema; bilateral upper and lower lobe infiltrates likely secondary to aspiration. MRSA + E coli + Pseudomonas are now growing in sputum. Not tolerating CPAP trials. Anticipate difficulty getting her off the vent. ==Palliative care will continue to follow this patient to establish trust, assist with symptom management and clarification of medical treatment goals. . Attestation To help prompt me to consider important information that might be impacting today's encounter and assessment, information from prior notes written by myself or my colleagues may have been "brought forward" into today's note. My signature on this note, however, is an attestation that I personally performed the exam, history, and/or decision-making noted today, and, unless otherwise indicated, the interactions with patient, family, and staff as well as the review of records all occurred today. I also attest that the listed assessment and stated plan reflect my best clinical judgment today based on the combination of historical information, prior notes, and today's exam/ interactions. When time spent is documented, it refers only to time spent today by the signer, or if indicated, combined time spent today by collaborating physician/nurse practitioner. . Pablito Collier MD Dec 14, 2016 17:10
--- NOTE | 2016-12-14 18:01 | HHI.CCPN ---
Subjective Remarks/Hospital Course 86 y/o woman developed worsening SOB this afternoon associated with marked leukocytosis. Recent biliary instrumentation for obstruction 48 hours ago and probable sepsis. On appropriate antibiotics. Requiring NRBM now for oxygenation to 97%. Visibly labored breathing. CXR with interstitial edema. EF 35% 2014. Move to ICU. 11/24: Patient s/p colonoscopy this morning which showed mod. diverticulosis in sigmoid colon and hemorrhoids. Remains on NRB with good sats. Afebrile. Cr increased 1.51 from 1.08. 11/25 Patient s/p Ex lap, right colectomy and cholecystectomy. She kept intubated postop went into Afib with RVR overnight and placed on Cardizem drip 10mg/hr. 11/26 Patient is sedated with Diprivan, fentanyl and intubated. Afebrile. On Cardizem drip 5mg/hr. renal function worse with Cr: 2.01 from 1.89, UOP: 1L in 24 hrs 11/27 Patient remains sedated and intubated. Off Cardizem drip. Renal function is improving with Cr: 1.67 from 2.01. Afebrile. 11/28 remains intubated sedated. Heart rate controlled. Creat 1.26. Hb 6.5. Status post 2 units PRBC today. WBC count decreased from 40,000-26,000. Creat improving 1.26 11/29: Patient A. fib with RVR currently on diltiazem drip at 15 mg an hour for rate control. Hemodynamically stable. 11/30: Heart rate better controlled today. Diltiazem drip discontinued overnight. Heart rate currently in the 70s. Tolerated PSV trials yesterday. We'll attempt extubation today if tolerates. No bowel movement. Tolerating tube feeds at 30 cc an hour 12/01: Tmax 101.7. Failed extubation trial after 1 hour yesterday. Persistently hypotensive post intubation. Transfuse 1 unit hemoglobin yesterday for melena per RN. Hemoglobin went from 7.5-11.3. CVP is 12. Enoxaparin will be held. CT thorax, abdomen and pelvis performed now. Lactate pending. Serial hemoglobins. GI consult for EGD 12/03: Patient remains sedated with Diprivan and Fentanyl and intubated. On Levophed 4 mics, Cardizem drip 2.5mg/hr. For EGD today 12/04 Patient is sedated and intubated. s/p EGD yesterday showed gastritis, no active bleeding. Remains on Cardizem 2.5mg/hr and Levophed 3 mics. Afebrile. 12/05: Afebrile. Hemoglobin stable. Off norepinephrine and diltiazem drips. Creatinine stabilizing. 12/06: No acute events reported overnight. Plan for tracheostomy at 10 AM today. Platelet count is 68,000, discussed this with Dr. Polanco. HIT screen ordered yesterday pending 12/07 Patient s/p trach yesterday sedated with Diprivan. Afebrile. 12/08 Patient is on ventilator via trach, T: 100.8 at 4am. 12/09 No events overnight sedated with Diprivan and intubated. Afebrile. 12/10 Patient remains sedated and intubated, for PEG tube placement today. 12/11 s/p PEG tube placement yesterday. Sedated with Diprivan and intubated. 12/12 Patient remains sedated and on ventilator via trach. Afebrile. Given 1unit PRBC, FFP and PLT yesterday 12/13 Patient remains intubated and on vent via trach. CT abd/pelvis last night showed possible colitis. Not tolerating enteral feeding. Subjective 12/14: Remains on tracheostomy/ventilator. Status post GJ tube conversion with IR. Platelets decreased to 28,000. Objective Vital Signs Date Time Temp Pulse Resp B/P (MAP) Pulse Ox O2 Delivery O2 Flow Rate FiO2 12/14/16 16:00 97 12/14/16 16:00 35 12/14/16 16:00 97.4 24 125/60 (81) 99 12/14/16 08:13 Ventilator Intake and Output 12/14/16 12/14/16 12/15/16 08:00 16:00 00:00 Intake Total 865 ml Output Total 600 ml Balance 265 ml Result Diagram: 12/14/16 0514 12/14/16 1240 Other Results Microbiology Date/Time Source Procedure Growth Status 12/03/16 15:25 Blood Peripheral Aerobic Blood Culture - Final NO GROWTH IN 5 DAYS Complete 12/03/16 15:25 Blood Peripheral Anaerobic Blood Culture - Final NO GROWTH IN 5 DAYS Complete 11/30/16 23:00 Stool Stool Stool Occult Blood (MAXINE) - Final HEMOCCULT POSITIVE Complete 12/10/16 11:25 Sputum Endotracheal Gram Stain - Final Complete 12/10/16 11:25 Sputum Culture - Final S. Aureus Mrsa Escherichia Coli Pseudomonas Aeruginosa Complete Imaging Last Impressions Gastrostomy Tube Change 12/14/16 0000 Signed Impressions: Service Date/Time: Wednesday, December 14, 2016 10:41 - CONCLUSION: Uncomplicated fluoroscopic guided conversion of gastrostomy tube to gastrojejunal feeding tube as above. Giovani Ritter MD Chest X-Ray 12/14/16 0000 Signed Impressions: Service Date/Time: Wednesday, December 14, 2016 04:33 - CONCLUSION: 1. Limited by motion artifact. 2. Unchanged bibasilar pulmonary infiltrates. Shant Dyer Jr., MD GI Bleed Scan Nuclear Medicine 12/13/16 0000 Signed Impressions: Service Date/Time: December 13:29 - CONCLUSION: No active GI bleeding Giovani Ritter MD Abdomen/Pelvis CT 12/12/16 0000 Signed Impressions: Service Date/Time: Monday, December 12, 2016 21:21 - CONCLUSION: 1. Thickening of the transverse colon. This is concerning for colitis. 2. It appears the patient is status post resection of the ascending colon. There is a bowel anastomosis suture seen at the proximal to mid transverse colon. 3. Hypertrophy of the left lobe and caudate of the liver and a questionable nodular surface. This could potentially represent changes of cirrhosis. There is moderate ascites seen. 4. G-tube in place. 5. Oral contrast is seen in the distal esophagus or within a mild hiatal hernia. 6. Bilateral renal cysts. 7. Suspected bilateral adrenal gland adenomas. Giovani Ruiz MD Abdomen X-Ray 12/07/16 0000 Signed Impressions: Service Date/Time: Wednesday, December 07, 2016 10:02 - CONCLUSION: 1. Improved mild adynamic ileus bowel gas pattern. Sam Buckner MD Chest CT 12/01/16 0000 Signed Impressions: Service Date/Time: Thursday, December 01, 2016 08:13 - CONCLUSION: 1. Severe emphysema with bilateral airspace consolidation in a patchy distribution involving the upper and lower lobes but most severe in the left lower lobe. There is also a trace left pleural effusion. Imaging findings are nonspecific but infection or aspiration should be considerations. 2. Coronary artery calcification. Giovani Lopez MD Head CT 11/27/16 0000 Signed Impressions: Service Date/Time: Sunday, November 27, 2016 14:47 - CONCLUSION: 1. Questionable edema or subacute infarct in the left parietal deep white matter. This would be better evaluated with MRI. No intracranial hemorrhage or significant mass effect. Romario Kauffman MD Brain MRI 11/27/16 0000 Signed Impressions: Service Date/Time: Sunday, November 27, 2016 18:10 - CONCLUSION: 1. Moderate periventricular and subcortical white matter small vessel ischemic changes bilaterally. 2. 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 3. No acute infarct, acute hemorrhage, mass effect or extra-axial fluid collection. 4. Fluid level within sphenoid sinuses. 5. Fluid within the mastoid air cells bilaterally. Hasmukh Oakes MD Abdomen Ultrasound 11/23/16 0000 Signed Impressions: Service Date/Time: Wednesday, November 23, 2016 19:33 - CONCLUSION: 1. Somewhat limited study. Proximal superior mesenteric artery appears patent. 2. Mildly elevated flow velocities in the celiac and hepatic arteries of doubtful clinical significance. Giovani Martienz MD GI Procedure 11/21/16 0000 Signed Impressions: Service Date/Time: Monday, November 21, 2016 10:44 - CONCLUSION: ERCP as above. Reymundo Wilburn MD FACR Objective Remarks GENERAL: 86 yo female, on ventilator via trach SKIN: Warm and dry. No rash HEAD: Normocephalic. EYES: No scleral icterus. No injection or drainage. 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 NECK: Supple, trachea midline. No JVD or lymphadenopathy. Trach in place CARDIOVASCULAR: RRR. S1, S2 no S4. 2/6 systolic murmur left lower sternal border/right upper sternal border RESPIRATORY: Breath sounds equal bilaterally. No accessory muscle use. GASTROINTESTINAL: Status post GJ conversion day. Hypoactive bowel sounds. MUSCULOSKELETAL: Trace peripheral edema Neuro: Currently on propofol for sedation. Withdraws all 4 extremities to noxious stimulation. Positive gag. 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 Date of Insertion: Nov 24, 2016 Line: Central Venous Catheter Side: Right Location: Internal, Jugular A/P Assessment and Plan Neuro/Psych: History of chronic bilateral basal ganglia CVA Acute toxic metabolic encephalopathy Prosthetic left eye On propofol as needed infusion for sedation/analgesia while intubated Goal of RASS -2 Daily sedation vacation. MRI brain 11/27 showed moderate small vessel disease, old bilateral basal ganglia CVA however no acute findings. Evaluated by Dr. Roque - neurology Continue amitriptyline 10 mg at night Acetaminophen 650 mg by tube every 6 hours. Fever Pulm: Acute hypoxemic respiratory failure- Extubated and reintubated on 11/30 History of COPD ACV 18/650/35 Ventilator bundle. s/p trach 12/06 Albuterol/ipratropium aerosols every 6 hours with albuterol aerosols every 2 hours as needed for dyspnea Solumederol 40mg Q12. Continue with vent support and maintain sat >92%. SBT daily as adelina. CT chest 11/20: Severe underlying emphysema. Status post median sternotomy with postsurgical changes. CT thorax 11/30 revealed severe emphysema. Bilateral upper and lower lobe infiltrates/glass ground likely aspiration. CV: Systolic heart failure - likely chronic ejection fraction 40% Severe sepsis Atrial Fibrillation w/ RVR - normal sinus rhythm History of hypertension Severe pulmonary hypertension likely group 3 secondary to COPD PAD history of bilateral CEA On diltiazem 30 mg by mouth every 6 hours. Echo from 11/26 EF 40%, mild MR. Moderate AR/TR. Severe pulmonary HTN (PAP 70mmHg) ASA 81 mg daily held in light of GI bleeding Continue Atorvastatin 80 mg daily RENAL//FEN: Acute kidney injury resolved Monitor renal function, I/O's, avoid nephrotoxins, Nephrology has followed and signed off- Dr. 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 Gastroesophageal reflux disease Transaminitis Status post GJ conversion by IR today s/p PEG tube placement 12/10- Tf on hold Glucerna 1.5 with goals rate 45ml/hr restart trickle feeds 9 GI is following. IR consulted for conversion G-J tube. 12/12: CT abd/pelvis: Possible colitis. C-diff PCR negative 12/11 12/01 KUB abdomen 12/07: Improved mild adynamic ileus bowel gas pattern. KUB 12/04 revealed mild ileus. 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 Mild head pancreatitis possible in the proper clinical setting. Patient has recently had ERCP and bile duct stone extraction. Bibasilar pneumonia developing. Tiny pleural effusion on the right US abdomen: Proximal superior mesenteric artery appears patent. Currently on lactulose 30 cc twice a day and Xifaxan 550 twice a day. Ammonia level 42 on 12/06 On ursodiol 300 mg by mouth twice daily. Resume when clinically indicated On metoclopramide per Dr. Polanco for bowel prokinetic medication ID: MRSA pneumonia Continue with abx per ID (piperacillin/tazobactam/metronidazole/fluconazole/ Vanco) Monitor for signs of infections ( Fever, WBC) recheck sputum cx Pertinent cultures Sputum 12/10 : MRSA, E.coli, Pseudomonas BC 11/24: NGTD . Blood cultures 11/29 -no growth C. difficile negative 12/01 12/03 - blood cultures 2 - no growth 12/03, 12/07 - sputum - MRSA Heme: Leukocytosis..trending down Normocytic anemia Thrombocytopenia Monitor CBC, coags s/p transfusion 1unit PRBC, PLT, FFP yesterday. Status post 2 units PRBCs 11/28. 1 unit PRBCs 12/01 Hemoccult stool 11/30 positive HIT negative Endo: SSI with accuchecks with Novulin R every 4 hours GI prophylaxis- Pantoprazole 40mg IV twice a day DVT prophylaxis- Enoxaparin 30mg daily held in light of GI bleed, thrombocytopenia Lines: peripheral IV's Level 3 Jean Pierre Oh MD Dec 14, 2016 18:01
[2016-12-14] MEDS: ATORVASTATIN 80 MG TAB PO SCH (20:15)
[2016-12-14] MEDS: RIFAXIMIN 550 MG TAB PO SCH (20:15)
[2016-12-14] MEDS: RESP: ALBUTEROL 2.5 MG/IPRATROPIUM 0.5 MG NEB (SCH) NEB (20:24)
--- NOTE | 2016-12-14 21:35 | HHI.IDPN ---
Subjective Subjective Remarks Essentially no change No fever Restaerted on trickle feeds aafter J tube placed diarrhea remains on vent not much secretions Antibiotics zosyn vancomycin Lines Line sites with no e.o infection Past Medical History reviewed Allergies: Coded Allergies: No Known Allergies (Unverified , 11/24/16) Objective . Vital Signs Date Time Temp Pulse Resp B/P (MAP) Pulse Ox O2 Delivery O2 Flow Rate FiO2 12/14/16 20:24 98 35 12/14/16 18:00 103 12/14/16 16:00 97 12/14/16 16:00 35 12/14/16 16:00 97.4 97 24 125/60 (81) 99 12/14/16 15:22 100 35 12/14/16 14:00 92 12/14/16 12:00 35 12/14/16 12:00 93 12/14/16 12:00 97.8 93 21 128/58 (81) 97 12/14/16 10:30 100 100 12/14/16 10:00 79 12/14/16 08:35 100 35 12/14/16 08:13 100 Ventilator 35 12/14/16 08:00 35 12/14/16 08:00 96 12/14/16 08:00 97.8 96 19 120/58 (78) 100 12/14/16 06:00 89 12/14/16 04:20 100 35 12/14/16 04:00 96 12/14/16 04:00 35 12/14/16 04:00 97.7 96 22 133/73 (93) 98 12/14/16 02:00 97 12/14/16 00:59 99 35 12/14/16 00:00 35 12/14/16 00:00 98.0 94 14 138/68 (91) 99 12/14/16 00:00 94 12/13/16 22:44 99 35 12/13/16 22:00 92 12/14/16 12/14/16 12/15/16 15:00 23:00 07:00 Intake Total 681 ml Output Total 500 ml Balance 181 ml IV Total 681 ml Stool Total 500 ml # Voids 4 . Laboratory Tests Test 12/13/16 00:12 12/13/16 17:48 12/14/16 05:14 12/14/16 12:40 White Blood Count 13.6 TH/MM3 11.5 TH/MM3 11.0 TH/MM3 Red Blood Count 3.00 MIL/MM3 2.90 MIL/MM3 3.07 MIL/MM3 Hemoglobin 8.6 GM/DL 8.2 GM/DL 8.8 GM/DL Hematocrit 25.0 % 24.5 % 25.6 % Mean Corpuscular Volume 83.2 FL 84.3 FL 83.4 FL Mean Corpuscular Hemoglobin 28.5 PG 28.4 PG 28.8 PG Mean Corpuscular Hemoglobin Concent 34.3 % 33.7 % 34.5 % Red Cell Distribution Width 16.4 % 16.5 % 16.5 % Platelet Count 54 TH/MM3 44 TH/MM3 28 TH/MM3 Mean Platelet Volume 9.6 FL 10.4 FL 10.5 FL Neutrophils (%) (Auto) 93.3 % 89.1 % 93.8 % Lymphocytes (%) (Auto) 4.4 % 7.2 % 4.2 % Monocytes (%) (Auto) 2.0 % 3.0 % 1.8 % Eosinophils (%) (Auto) 0.1 % 0.4 % 0.1 % Basophils (%) (Auto) 0.2 % 0.3 % 0.1 % Neutrophils # (Auto) 12.7 TH/MM3 10.3 TH/MM3 10.3 TH/MM3 Lymphocytes # (Auto) 0.6 TH/MM3 0.8 TH/MM3 0.5 TH/MM3 Monocytes # (Auto) 0.3 TH/MM3 0.3 TH/MM3 0.2 TH/MM3 Eosinophils # (Auto) 0.0 TH/MM3 0.0 TH/MM3 0.0 TH/MM3 Basophils # (Auto) 0.0 TH/MM3 0.0 TH/MM3 0.0 TH/MM3 CBC Comment AUTO DIFF AUTO DIFF AUTO DIFF Differential Comment AUTO DIFF CONFIRMED AUTO DIFF CONFIRMED AUTO DIFF CONFIRMED Platelet Estimate LOW LOW Platelet Morphology Comment NORMAL Acanthocytes OCC OCC 2+ Laboratory Tests Test 12/13/16 17:48 12/14/16 05:14 12/14/16 12:40 Blood Urea Nitrogen 38 MG/DL 37 MG/DL Creatinine 1.03 MG/DL 0.89 MG/DL Random Glucose 107 MG/DL 146 MG/DL Total Protein 5.8 GM/DL Albumin 1.6 GM/DL Calcium Level 8.5 MG/DL 8.5 MG/DL Alkaline Phosphatase 96 U/L Aspartate Amino Transf (AST/SGOT) 37 U/L Alanine Aminotransferase (ALT/SGPT) 15 U/L Total Bilirubin 0.9 MG/DL Direct Bilirubin 0.6 MG/DL Sodium Level 143 MEQ/L 143 MEQ/L Potassium Level 2.8 MEQ/L 3.5 MEQ/L 4.4 MEQ/L Chloride Level 111 MEQ/L 114 MEQ/L Carbon Dioxide Level 19.0 MEQ/L 16.6 MEQ/L Anion Gap 13 MEQ/L 12 MEQ/L Estimat Glomerular Filtration Rate 51 ML/MIN 60 ML/MIN Indirect Bilirubin 0.3 MG/DL Ammonia 31 MCMOL/L Phosphorus Level 3.0 MG/DL Magnesium Level 2.0 MG/DL Imaging Last Impressions Gastrostomy Tube Change 12/14/16 0000 Signed Impressions: Service Date/Time: Wednesday, December 14, 2016 10:41 - CONCLUSION: Uncomplicated fluoroscopic guided conversion of gastrostomy tube to gastrojejunal feeding tube as above. Giovani Ritter MD Chest X-Ray 12/14/16 0000 Signed Impressions: Service Date/Time: Wednesday, December 14, 2016 04:33 - CONCLUSION: 1. Limited by motion artifact. 2. Unchanged bibasilar pulmonary infiltrates. Shant Dyer Jr., MD GI Bleed Scan Nuclear Medicine 12/13/16 0000 Signed Impressions: Service Date/Time: December 13:29 - CONCLUSION: No active GI bleeding Giovani Ritter MD Abdomen/Pelvis CT 12/12/16 0000 Signed Impressions: Service Date/Time: Monday, December 12, 2016 21:21 - CONCLUSION: 1. Thickening of the transverse colon. This is concerning for colitis. 2. It appears the patient is status post resection of the ascending colon. There is a bowel anastomosis suture seen at the proximal to mid transverse colon. 3. Hypertrophy of the left lobe and caudate of the liver and a questionable nodular surface. This could potentially represent changes of cirrhosis. There is moderate ascites seen. 4. G-tube in place. 5. Oral contrast is seen in the distal esophagus or within a mild hiatal hernia. 6. Bilateral renal cysts. 7. Suspected bilateral adrenal gland adenomas. Giovani Ruiz MD Abdomen X-Ray 12/07/16 0000 Signed Impressions: Service Date/Time: Wednesday, December 07, 2016 10:02 - CONCLUSION: 1. Improved mild adynamic ileus bowel gas pattern. Sam Buckner MD Chest CT 12/01/16 Signed Impressions: Service Date/Time: Thursday, December 01, 2016 08:13 - CONCLUSION: 1. Severe emphysema with bilateral airspace consolidation in a patchy distribution involving the upper and lower lobes but most severe in the left lower lobe. There is also a trace left pleural effusion. Imaging findings are nonspecific but infection or aspiration should be considerations. 2. Coronary artery calcification. Giovani Lopez MD Head CT 11/27/16 Signed Impressions: Service Date/Time: Sunday, November 27, 2016 14:47 - CONCLUSION: 1. Questionable edema or subacute infarct in the left parietal deep white matter. This would be better evaluated with MRI. No intracranial hemorrhage or significant mass effect. Romario Kauffman MD Brain MRI 11/27/16 Signed Impressions: Service Date/Time: Sunday, November 27, 2016 18:10 - CONCLUSION: 1. Moderate periventricular and subcortical white matter small vessel ischemic changes bilaterally. 2. 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 3. No acute infarct, acute hemorrhage, mass effect or extra-axial fluid collection. 4. Fluid level within sphenoid sinuses. 5. Fluid within the mastoid air cells bilaterally. Hasmukh Oakes MD Abdomen Ultrasound 11/23/16 Signed Impressions: Service Date/Time: Wednesday, November 23, 2016 19:33 - CONCLUSION: 1. Somewhat limited study. Proximal superior mesenteric artery appears patent. 2. Mildly elevated flow velocities in the celiac and hepatic arteries of doubtful clinical significance. Giovani Martinez MD GI Procedure 11/21/16 Signed Impressions: Service Date/Time: Monday, November 21, 2016 10:44 - CONCLUSION: ERCP as above. Remyundo Wilburn MD FACR Physical Exam CONSTITUTIONAL/GENERAL: This is an adequately nourished patient, in no apparent distress. sedated int'd on vent TUBES/LINES/DRAINS: SKIN: No jaundice, rashes, or lesions. Skin temperature appropriate. Not diaphoretic. EYES: OD - prosthesis Fundi not examined. CARDIOVASCULAR: Regular rate and rhythm + 2/6 systolic murmur, no gallops, or rubs. No JVD. Peripheral pulses symmetric. Well perfused perifery RESPIRATORY/CHEST: Symmetric, unlabored respirations. Rhonchi to auscultation. Breath sounds equal bilaterally. No wheezes, rales, or rhonchi. GASTROINTESTINAL:Abd more distended, soft ; no reaction to palpation BS hypoactive dignishiled in place with bwrown liquid stool GENITOURINARY: Without palpable bladder distension. Sanchez catheter in place with small amount of dark yellow urine MUSCULOSKELETAL: Extremities without clubbing, , + worsening edema, .no cyanosis NEUROLOGICAL: unresponsive PSYCHIATRIC: unable to assess Assessment & Plan Remarks Volvulus sp colon resection and cholecystectomy path benign:cecum volvulus and chronic calculous cholecstitis Sepsis from intraabdominal source (leukocytosis, leukemoid reaction, hypoxia, JOSUE) PNA, , ?aspiration, - MRSA , PSAE E.coli Recurrent VDRF - sp reintubation Melena: CT unremarkable Diarrhea, C.diff negative - colitis on CT Thrombocytopenia : ? zyvox contributing; improved - zyvox stopped, plts even worse today Ileus Critically ill Rec: fu WBC monitor plts cont zosyn, cont fluconazol cont vancomycin repeat C.diff test Sharon Guerra RN, MD Dec 14, 2016 21:35
[2016-12-15] VITALS (17 sets, daily range): BP systolic 87–99; BP diastolic 42–51; PULSE 85–163; RESP 30–61; TEMP 99.1–101.5; O2SAT 0–100
[2016-12-15] MEDS: DILTIAZEM HCL 30 MG TAB PO SCH ×4 (00:02→16:55)
[2016-12-15] MEDS: VANCOMYCIN INJ 1,500 MG in SODIUM CHLORID 0.9% 500 ML INJ 500 ML IV SCH (00:03)
[2016-12-15] MEDS: metroNIDAZOLE 500 MG INJ 100 ML IV SCH ×3 (00:03→16:54)
[2016-12-15] MEDS: INSULIN NovoLIN REGULAR SUPPLEMENTAL SCALE SQ SCH ×4 (00:07→12:11)
[2016-12-15] MEDS: RESP: ALBUTEROL 2.5 MG/IPRATROPIUM 0.5 MG NEB (SCH) NEB ×4 (03:24→20:52)
[2016-12-15] MEDS: PIPERACIL-TAZO 3.375 GM PREMIX 50 ML IV SCH ×3 (04:09→15:20)
[2016-12-15] MEDS: METOCLOPRAMIDE HCL 10 MG/2 ML VIAL IV PUSH SCH ×2 (04:50→13:29)
[2016-12-15 05:28] LABS: C. DIFF EPI 027 PRESUMPTIVE NEGATIVE (NEGATIVE)
[2016-12-15] MEDS ORDERED: LACTATED RINGER'S 1000 ML INJ 1,000 ML IV ONE (07:15)
--- NOTE | 2016-12-15 07:52 | HHI.CCPN ---
Subjective Remarks/Hospital Course 86 y/o woman developed worsening SOB this afternoon associated with marked leukocytosis. Recent biliary instrumentation for obstruction 48 hours ago and probable sepsis. On appropriate antibiotics. Requiring NRBM now for oxygenation to 97%. Visibly labored breathing. CXR with interstitial edema. EF 35% 2014. Move to ICU. 11/24: Patient s/p colonoscopy this morning which showed mod. diverticulosis in sigmoid colon and hemorrhoids. Remains on NRB with good sats. Afebrile. Cr increased 1.51 from 1.08. 11/25 Patient s/p Ex lap, right colectomy and cholecystectomy. She kept intubated postop went into Afib with RVR overnight and placed on Cardizem drip 10mg/hr. 11/26 Patient is sedated with Diprivan, fentanyl and intubated. Afebrile. On Cardizem drip 5mg/hr. renal function worse with Cr: 2.01 from 1.89, UOP: 1L in 24 hrs 11/27 Patient remains sedated and intubated. Off Cardizem drip. Renal function is improving with Cr: 1.67 from 2.01. Afebrile. 11/28 remains intubated sedated. Heart rate controlled. Creat 1.26. Hb 6.5. Status post 2 units PRBC today. WBC count decreased from 40,000-26,000. Creat improving 1.26 11/29: Patient A. fib with RVR currently on diltiazem drip at 15 mg an hour for rate control. Hemodynamically stable. 11/30: Heart rate better controlled today. Diltiazem drip discontinued overnight. Heart rate currently in the 70s. Tolerated PSV trials yesterday. We'll attempt extubation today if tolerates. No bowel movement. Tolerating tube feeds at 30 cc an hour 12/01: Tmax 101.7. Failed extubation trial after 1 hour yesterday. Persistently hypotensive post intubation. Transfuse 1 unit hemoglobin yesterday for melena per RN. Hemoglobin went from 7.5-11.3. CVP is 12. Enoxaparin will be held. CT thorax, abdomen and pelvis performed now. Lactate pending. Serial hemoglobins. GI consult for EGD 12/03: Patient remains sedated with Diprivan and Fentanyl and intubated. On Levophed 4 mics, Cardizem drip 2.5mg/hr. For EGD today 12/04 Patient is sedated and intubated. s/p EGD yesterday showed gastritis, no active bleeding. Remains on Cardizem 2.5mg/hr and Levophed 3 mics. Afebrile. 12/05: Afebrile. Hemoglobin stable. Off norepinephrine and diltiazem drips. Creatinine stabilizing. 12/06: No acute events reported overnight. Plan for tracheostomy at 10 AM today. Platelet count is 68,000, discussed this with Dr. Polanco. HIT screen ordered yesterday pending 12/07 Patient s/p trach yesterday sedated with Diprivan. Afebrile. 12/08 Patient is on ventilator via trach, T: 100.8 at 4am. 12/09 No events overnight sedated with Diprivan and intubated. Afebrile. 12/10 Patient remains sedated and intubated, for PEG tube placement today. 12/11 s/p PEG tube placement yesterday. Sedated with Diprivan and intubated. 12/12 Patient remains sedated and on ventilator via trach. Afebrile. Given 1unit PRBC, FFP and PLT yesterday 12/13 Patient remains intubated and on vent via trach. CT abd/pelvis last night showed possible colitis. Not tolerating enteral feeding. 12/14: Remains on tracheostomy/ventilator. Status post GJ tube conversion with IR. Platelets decreased to 28,000. Subjective 12/15: Tmax 99.1. This AM, acute episode of hypotension. Sedation placed on hold receiving 1 L LR at 50 g albumin 1 now. Patient mouth open. Dry mucosa. Objective Vital Signs Date Time Temp Pulse Resp B/P (MAP) Pulse Ox O2 Delivery O2 Flow Rate FiO2 12/15/16 06:00 35 12/15/16 06:00 105 12/15/16 04:29 96 12/15/16 04:00 99.1 61 87/49 (62) 12/14/16 08:13 Ventilator Intake and Output 12/15/16 12/15/16 12/16/16 08:00 16:00 00:00 Intake Total 607 ml Output Total 500 ml Balance 107 ml Result Diagram: 12/14/16 0514 12/14/16 1240 Other Results Microbiology Date/Time Source Procedure Growth Status 12/03/16 15:25 Blood Peripheral Aerobic Blood Culture - Final NO GROWTH IN 5 DAYS Complete 12/03/16 15:25 Blood Peripheral Anaerobic Blood Culture - Final NO GROWTH IN 5 DAYS Complete 11/30/16 23:00 Stool Stool Stool Occult Blood (MAXINE) - Final HEMOCCULT POSITIVE Complete 12/10/16 11:25 Sputum Endotracheal Gram Stain - Final Complete 12/10/16 11:25 Sputum Culture - Final S. Aureus Mrsa Escherichia Coli Pseudomonas Aeruginosa Complete Imaging Last Impressions Gastrostomy Tube Change 12/14/16 0000 Signed Impressions: Service Date/Time: Wednesday, December 14, 2016 10:41 - CONCLUSION: Uncomplicated fluoroscopic guided conversion of gastrostomy tube to gastrojejunal feeding tube as above. Giovani Ritter MD Chest X-Ray 12/14/16 0000 Signed Impressions: Service Date/Time: Wednesday, December 14, 2016 04:33 - CONCLUSION: 1. Limited by motion artifact. 2. Unchanged bibasilar pulmonary infiltrates. Shant Dyer Jr., MD GI Bleed Scan Nuclear Medicine 12/13/16 0000 Signed Impressions: Service Date/Time: December 13:29 - CONCLUSION: No active GI bleeding Giovani Ritter MD Abdomen/Pelvis CT 12/12/16 0000 Signed Impressions: Service Date/Time: Monday, December 12, 2016 21:21 - CONCLUSION: 1. Thickening of the transverse colon. This is concerning for colitis. 2. It appears the patient is status post resection of the ascending colon. There is a bowel anastomosis suture seen at the proximal to mid transverse colon. 3. Hypertrophy of the left lobe and caudate of the liver and a questionable nodular surface. This could potentially represent changes of cirrhosis. There is moderate ascites seen. 4. G-tube in place. 5. Oral contrast is seen in the distal esophagus or within a mild hiatal hernia. 6. Bilateral renal cysts. 7. Suspected bilateral adrenal gland adenomas. Giovani Ruiz MD Abdomen X-Ray 12/07/16 0000 Signed Impressions: Service Date/Time: Wednesday, December 07, 2016 10:02 - CONCLUSION: 1. Improved mild adynamic ileus bowel gas pattern. Sam Buckner MD Chest CT 12/01/16 0000 Signed Impressions: Service Date/Time: Thursday, December 01, 2016 08:13 - CONCLUSION: 1. Severe emphysema with bilateral airspace consolidation in a patchy distribution involving the upper and lower lobes but most severe in the left lower lobe. There is also a trace left pleural effusion. Imaging findings are nonspecific but infection or aspiration should be considerations. 2. Coronary artery calcification. Giovani Lopez MD Head CT 11/27/16 Signed Impressions: Service Date/Time: Sunday, November 27, 2016 14:47 - CONCLUSION: 1. Questionable edema or subacute infarct in the left parietal deep white matter. This would be better evaluated with MRI. No intracranial hemorrhage or significant mass effect. Romario Kauffman MD Brain MRI 11/27/16 0000 Signed Impressions: Service Date/Time: Sunday, November 27, 2016 18:10 - CONCLUSION: 1. Moderate periventricular and subcortical white matter small vessel ischemic changes bilaterally. 2. 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 3. No acute infarct, acute hemorrhage, mass effect or extra-axial fluid collection. 4. Fluid level within sphenoid sinuses. 5. Fluid within the mastoid air cells bilaterally. Hasmukh Oakes MD Abdomen Ultrasound 11/23/16 0000 Signed Impressions: Service Date/Time: Wednesday, November 23, 2016 19:33 - CONCLUSION: 1. Somewhat limited study. Proximal superior mesenteric artery appears patent. 2. Mildly elevated flow velocities in the celiac and hepatic arteries of doubtful clinical significance. Giovani Martinez MD GI Procedure 11/21/16 0000 Signed Impressions: Service Date/Time: Monday, November 21, 2016 10:44 - CONCLUSION: ERCP as above. Reymundo Wilburn MD FACR Objective Remarks GENERAL: 86 yo female, on ventilator via trach SKIN: Cool and dry. No rash HEAD: Normocephalic. EYES: No scleral icterus. No injection or drainage. 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 ENT: Oral mucosa is very dry. NECK: Supple, trachea midline. No JVD or lymphadenopathy. Trach in place CARDIOVASCULAR: RRR. S1, S2 no S4. 2/6 systolic murmur left lower sternal border/right upper sternal border RESPIRATORY: Diminished breath sounds left greater than right lower lobe. No wheezing appreciated. GASTROINTESTINAL: Status post GJ conversion with site clean dry and intact. Prior transverse abdominal scar well-healed. Hypoactive bowel sounds. MUSCULOSKELETAL: Trace peripheral edema Neuro: Currently off all sedation. Withdraws all 4 extremities to noxious stimulation. Positive gag. 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 Date of Insertion: Nov 24, 2016 Line: Central Venous Catheter Side: Right Location: Internal, Jugular A/P Assessment and Plan Neuro/Psych: History of chronic bilateral basal ganglia CVA Acute toxic metabolic encephalopathy Prosthetic left eye On propofol as needed infusion for sedation/analgesia while intubated Goal of RASS -2 Daily sedation vacation. MRI brain 11/27 showed moderate small vessel disease, old bilateral basal ganglia CVA however no acute findings. Evaluated by Dr. Roque - neurology Continue amitriptyline 10 mg at night Acetaminophen 650 mg by tube every 6 hours. Fever Pulm: Acute hypoxemic respiratory failure- Extubated and reintubated on 11/30 History of COPD ACV 18/650//35 Ventilator bundle. s/p trach 12/06 Albuterol/ipratropium aerosols every 6 hours with albuterol aerosols every 2 hours as needed for dyspnea Solumederol 40mg Q12. Continue with vent support and maintain sat >92%. SBT daily as adelina. CT chest 11/20: Severe underlying emphysema. Status post median sternotomy with postsurgical changes. CT thorax 11/30 revealed severe emphysema. Bilateral upper and lower lobe infiltrates/glass ground likely aspiration. CV: Systolic heart failure - likely chronic ejection fraction 40% Severe sepsis Atrial Fibrillation w/ RVR - normal sinus rhythm History of hypertension Severe pulmonary hypertension likely group 3 secondary to COPD PAD history of bilateral CEA On diltiazem 30 mg by mouth every 6 hours. Echo from 11/26 EF 40%, mild MR. Moderate AR/TR. Severe pulmonary HTN (PAP 70mmHg) ASA 81 mg daily held in light of GI bleeding Continue Atorvastatin 80 mg daily RENAL//FEN: Acute kidney injury resolved Monitor renal function, I/O's, avoid nephrotoxins, Nephrology has followed and signed off- Dr. 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 Gastroesophageal reflux disease Transaminitis Status post GJ conversion by IR today s/p PEG tube placement 12/10- Tf on hold Glucerna 1.5 with goals rate 45ml/hr restart trickle feeds GI is following. IR consulted for conversion G-J tube. 12/12: CT abd/pelvis: Possible colitis. C-diff PCR negative 12/11 12/01 KUB abdomen 12/07: Improved mild adynamic ileus bowel gas pattern. KUB 12/04 revealed mild ileus. 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 Mild head pancreatitis possible in the proper clinical setting. Patient has recently had ERCP and bile duct stone extraction. Bibasilar pneumonia developing. Tiny pleural effusion on the right US abdomen: Proximal superior mesenteric artery appears patent. Currently on lactulose 30 cc twice a day and Xifaxan 550 twice a day. Ammonia level 42 on 12/06 On ursodiol 300 mg by mouth twice daily. Resume when clinically indicated On metoclopramide per Dr. Polanco for bowel prokinetic medication ID: MRSA pneumonia Continue with abx per ID (piperacillin/tazobactam/metronidazole/fluconazole/ Vanco) Monitor for signs of infections ( Fever, WBC) recheck sputum cx Pertinent cultures Sputum 12/10 : MRSA, E.coli, Pseudomonas BC 11/24: NGTD . Blood cultures 11/29 -no growth C. difficile negative 12/01 12/03 - blood cultures 2 - no growth 12/03, 12/07 - sputum - MRSA Heme: Leukocytosis..trending down Normocytic anemia Thrombocytopenia Monitor CBC, coags s/p transfusion 1unit PRBC, PLT, FFP yesterday. Status post 2 units PRBCs 11/28. 1 unit PRBCs 12/01 Hemoccult stool 11/30 positive HIT negative Endo: SSI with accuchecks with Novulin R every 4 hours GI prophylaxis- Pantoprazole 40mg IV twice a day DVT prophylaxis- Enoxaparin 30mg daily held in light of GI bleed, thrombocytopenia Lines: peripheral IV's Level 3 Jean Pierre Oh MD Dec 15, 2016 07:52
[2016-12-15] MEDS ORDERED: ALBUMIN HUMAN 25% 25 GM/100 ML BAGP IV ONE (08:00)
[2016-12-15] MEDS: SODIUM CHLORIDE 0.9% FLUSH 10 ML FLUSH IV FLUSH SCH ×2 (09:05)
--- NOTE | 2016-12-15 09:49 | HHI.IDPN ---
Subjective Subjective Remarks doing poorly Pt became hypotensive this am Now on pressors, FiO2 100% not much secretions + low grade fever C.diff repeatedly negative Antibiotics zosyn vancomycin IV flagyl fluconazole Lines Line sites with no e.o infection Past Medical History reviewed Allergies: Coded Allergies: No Known Allergies (Unverified , 11/24/16) Objective . Vital Signs Date Time Temp Pulse Resp B/P (MAP) Pulse Ox O2 Delivery O2 Flow Rate FiO2 12/15/16 08:09 82 100 12/15/16 06:00 35 12/15/16 06:00 105 12/15/16 04:29 96 35 12/15/16 04:00 102 12/15/16 04:00 99.1 106 61 87/49 (62) 97 12/15/16 04:00 35 12/15/16 02:00 35 12/15/16 02:00 104 12/15/16 00:00 102 12/15/16 00:00 35 12/14/16 23:58 97 35 12/14/16 22:00 35 12/14/16 22:00 99 12/14/16 20:24 98 35 12/14/16 20:00 35 12/14/16 20:00 102 12/14/16 18:00 103 12/14/16 16:00 97 12/14/16 16:00 35 12/14/16 16:00 97.4 97 24 125/60 (81) 99 12/14/16 15:22 100 35 12/14/16 14:00 92 12/14/16 12:00 35 12/14/16 12:00 93 12/14/16 12:00 97.8 93 21 128/58 (81) 97 12/14/16 10:30 100 100 12/14/16 10:00 79 . Laboratory Tests Test 12/13/16 17:48 12/14/16 05:14 12/14/16 12:40 White Blood Count 11.5 TH/MM3 11.0 TH/MM3 Red Blood Count 2.90 MIL/MM3 3.07 MIL/MM3 Hemoglobin 8.2 GM/DL 8.8 GM/DL Hematocrit 24.5 % 25.6 % Mean Corpuscular Volume 84.3 FL 83.4 FL Mean Corpuscular Hemoglobin 28.4 PG 28.8 PG Mean Corpuscular Hemoglobin Concent 33.7 % 34.5 % Red Cell Distribution Width 16.5 % 16.5 % Platelet Count 44 TH/MM3 28 TH/MM3 Mean Platelet Volume 10.4 FL 10.5 FL Neutrophils (%) (Auto) 89.1 % 93.8 % Lymphocytes (%) (Auto) 7.2 % 4.2 % Monocytes (%) (Auto) 3.0 % 1.8 % Eosinophils (%) (Auto) 0.4 % 0.1 % Basophils (%) (Auto) 0.3 % 0.1 % Neutrophils # (Auto) 10.3 TH/MM3 10.3 TH/MM3 Lymphocytes # (Auto) 0.8 TH/MM3 0.5 TH/MM3 Monocytes # (Auto) 0.3 TH/MM3 0.2 TH/MM3 Eosinophils # (Auto) 0.0 TH/MM3 0.0 TH/MM3 Basophils # (Auto) 0.0 TH/MM3 0.0 TH/MM3 CBC Comment AUTO DIFF AUTO DIFF Differential Comment AUTO DIFF CONFIRMED AUTO DIFF CONFIRMED Platelet Estimate LOW Acanthocytes OCC 2+ Blood Smear Pathologist Review Haptoglobin 158 MG/DL Laboratory Tests Test 12/13/16 17:48 12/14/16 05:14 12/14/16 12:40 12/15/16 04:45 Blood Urea Nitrogen 38 MG/DL 37 MG/DL Creatinine 1.03 MG/DL 0.89 MG/DL Random Glucose 107 MG/DL 146 MG/DL Total Protein 5.8 GM/DL Albumin 1.6 GM/DL Calcium Level 8.5 MG/DL 8.5 MG/DL Alkaline Phosphatase 96 U/L Aspartate Amino Transf (AST/SGOT) 37 U/L Alanine Aminotransferase (ALT/SGPT) 15 U/L Total Bilirubin 0.9 MG/DL Direct Bilirubin 0.6 MG/DL Sodium Level 143 MEQ/L 143 MEQ/L Potassium Level 2.8 MEQ/L 3.5 MEQ/L 4.4 MEQ/L Chloride Level 111 MEQ/L 114 MEQ/L Carbon Dioxide Level 19.0 MEQ/L 16.6 MEQ/L Anion Gap 13 MEQ/L 12 MEQ/L Estimat Glomerular Filtration Rate 51 ML/MIN 60 ML/MIN Indirect Bilirubin 0.3 MG/DL Ammonia 31 MCMOL/L Phosphorus Level 3.0 MG/DL Magnesium Level 2.0 MG/DL Lactate Dehydrogenase 371 U/L Lactic Acid Level 6.2 mmol/L Imaging Last Impressions Gastrostomy Tube Change 12/14/16 Signed Impressions: Service Date/Time: Wednesday, December 14, 2016 10:41 - CONCLUSION: Uncomplicated fluoroscopic guided conversion of gastrostomy tube to gastrojejunal feeding tube as above. Giovani Ritter MD Chest X-Ray 12/14/16 Signed Impressions: Service Date/Time: Wednesday, December 14, 2016 04:33 - CONCLUSION: 1. Limited by motion artifact. 2. Unchanged bibasilar pulmonary infiltrates. Shant Dyer Jr., MD GI Bleed Scan Nuclear Medicine 12/13/16 Signed Impressions: Service Date/Time: December 13:29 - CONCLUSION: No active GI bleeding Giovani Ritter MD Abdomen/Pelvis CT 12/12/16 Signed Impressions: Service Date/Time: Monday, December 12, 2016 21:21 - CONCLUSION: 1. Thickening of the transverse colon. This is concerning for colitis. 2. It appears the patient is status post resection of the ascending colon. There is a bowel anastomosis suture seen at the proximal to mid transverse colon. 3. Hypertrophy of the left lobe and caudate of the liver and a questionable nodular surface. This could potentially represent changes of cirrhosis. There is moderate ascites seen. 4. G-tube in place. 5. Oral contrast is seen in the distal esophagus or within a mild hiatal hernia. 6. Bilateral renal cysts. 7. Suspected bilateral adrenal gland adenomas. Giovani Ruiz MD Abdomen X-Ray 12/07/16 0000 Signed Impressions: Service Date/Time: Wednesday, December 07, 2016 10:02 - CONCLUSION: 1. Improved mild adynamic ileus bowel gas pattern. Sam Buckner MD Chest CT 12/01/16 0000 Signed Impressions: Service Date/Time: Thursday, December 01, 2016 08:13 - CONCLUSION: 1. Severe emphysema with bilateral airspace consolidation in a patchy distribution involving the upper and lower lobes but most severe in the left lower lobe. There is also a trace left pleural effusion. Imaging findings are nonspecific but infection or aspiration should be considerations. 2. Coronary artery calcification. Giovani Lopez MD Head CT 11/27/16 0000 Signed Impressions: Service Date/Time: Sunday, November 27, 2016 14:47 - CONCLUSION: 1. Questionable edema or subacute infarct in the left parietal deep white matter. This would be better evaluated with MRI. No intracranial hemorrhage or significant mass effect. Romario Kauffman MD Brain MRI 11/27/16 0000 Signed Impressions: Service Date/Time: Sunday, November 27, 2016 18:10 - CONCLUSION: 1. Moderate periventricular and subcortical white matter small vessel ischemic changes bilaterally. 2. 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 3. No acute infarct, acute hemorrhage, mass effect or extra-axial fluid collection. 4. Fluid level within sphenoid sinuses. 5. Fluid within the mastoid air cells bilaterally. Hasmukh Oakes MD Abdomen Ultrasound 11/23/16 0000 Signed Impressions: Service Date/Time: Wednesday, November 23, 2016 19:33 - CONCLUSION: 1. Somewhat limited study. Proximal superior mesenteric artery appears patent. 2. Mildly elevated flow velocities in the celiac and hepatic arteries of doubtful clinical significance. Giovani Martinez MD GI Procedure 11/21/16 0000 Signed Impressions: Service Date/Time: Monday, November 21, 2016 10:44 - CONCLUSION: ERCP as above. Reymundo Wilburn MD FACR Physical Exam CONSTITUTIONAL/GENERAL: This is an adequately nourished patient, in no apparent distress. sedated int'd on vent TUBES/LINES/DRAINS: SKIN: No jaundice, rashes, or lesions. Skin temperature appropriate. Not diaphoretic. EYES: OD - prosthesis Fundi not examined. Mouth wide open, dry CARDIOVASCULAR: Regular rate and rhythm + 2/6 systolic murmur, no gallops, or rubs. No JVD. Peripheral pulses symmetric. Well perfused perifery RESPIRATORY/CHEST: Symmetric, unlabored respirations. Rhonchi to auscultation. Breath sounds equal bilaterally. No wheezes, rales, or rhonchi. GASTROINTESTINAL:Abd quite distended, soft ; no reaction to palpation BS hypoactive dignishiled in place with brown liquid stool GENITOURINARY: Without palpable bladder distension. Sanchez catheter in place with small amount of dark yellow urine MUSCULOSKELETAL: Extremities without clubbing, , + edema, .+ cyanosis , fingers , toes - cold NEUROLOGICAL: unresponsive PSYCHIATRIC: unable to assess Assessment & Plan Remarks Volvulus sp colon resection and cholecystectomy path benign:cecum volvulus and chronic calculous cholecstitis Sepsis from intraabdominal source (leukocytosis, leukemoid reaction, hypoxia, JOSUE) PNA, , ?aspiration, - MRSA , PSAE E.coli Recurrent VDRF - sp reintubation Melena: CT unremarkable Diarrhea, C.diff negative - colitis on CT: hickening of the transverse colon. This is concerning for colitis Thrombocytopenia : ? zyvox contributing; improved - zyvox stopped, plts even worse today Ileus - pt never tolearted TF past trickle feeds since surgery Critically ill, very unstable Hypotensive episode today Prognosis is poor , pt is unlikely to survive thru this hospitalisation Rec: fu WBC monitor plts cont zosyn, cont fluconazol cont vancomycin cont flagyl - rechk blood, urine clx dw Sharon Boateng RN, MD Dec 15, 2016 09:49
--- NOTE | 2016-12-15 09:58 | HHI.GIFU ---
Subjective Remarks Pt getting CXR, central line, has been hypotensive. Seems to be tolerating TF at 10ml/hr. Dark stool in bag. (Radha Jamil) Objective Vitals I&O Vital Signs Date Time Temp Pulse Resp B/P (MAP) Pulse Ox O2 Delivery O2 Flow Rate FiO2 12/15/16 08:09 82 100 12/15/16 06:00 35 12/15/16 06:00 105 12/15/16 04:29 96 35 12/15/16 04:00 102 12/15/16 04:00 99.1 106 61 87/49 (62) 97 12/15/16 04:00 35 12/15/16 02:00 35 12/15/16 02:00 104 12/15/16 00:00 102 12/15/16 00:00 35 12/14/16 23:58 97 35 12/14/16 22:00 35 12/14/16 22:00 99 12/14/16 20:24 98 35 12/14/16 20:00 35 12/14/16 20:00 102 12/14/16 18:00 103 12/14/16 16:00 97 12/14/16 16:00 35 12/14/16 16:00 97.4 97 24 125/60 (81) 99 12/14/16 15:22 100 35 12/14/16 14:00 92 12/14/16 12:00 35 12/14/16 12:00 93 12/14/16 12:00 97.8 93 21 128/58 (81) 97 12/14/16 10:30 100 100 12/14/16 10:00 79 I/O 12/14/16 12/14/16 12/14/16 12/15/16 12/15/16 12/15/16 06:59 14:59 22:59 06:59 14:59 22:59 Intake Total 1065 ml 681 ml 607 ml Output Total 600 ml 500 ml 500 ml Balance 465 ml 181 ml 107 ml IV Total 1065 ml 681 ml 496 ml Tube Feeding 111 ml Stool Total 600 ml 500 ml 500 ml # Voids 3 4 3 Laboratory Laboratory Tests Test 12/14/16 12:40 12/15/16 04:15 12/15/16 04:45 Haptoglobin 158 Potassium Level 4.4 Lactate Dehydrogenase 371 Stool C. difficile Toxin (PCR) NEGATIVE Stl C. difficile Toxin Epiderm 027 PRESUMPTIVE NEGATIVE Lactic Acid Level 6.2 Date/Time Source Procedure Growth Status 12/03/16 15:25 Blood Peripheral Aerobic Blood Culture - Final NO GROWTH IN 5 DAYS Complete 12/03/16 15:25 Blood Peripheral Anaerobic Blood Culture - Final NO GROWTH IN 5 DAYS Complete 11/30/16 23:00 Stool Stool Stool Occult Blood (MAXINE) - Final HEMOCCULT POSITIVE Complete 12/10/16 11:25 Sputum Endotracheal Gram Stain - Final Complete 12/10/16 11:25 Sputum Culture - Final S. Aureus Mrsa Escherichia Coli Pseudomonas Aeruginosa Complete Imaging Last Impressions Gastrostomy Tube Change 12/14/16 0000 Signed Impressions: Service Date/Time: Wednesday, December 14, 2016 10:41 - CONCLUSION: Uncomplicated fluoroscopic guided conversion of gastrostomy tube to gastrojejunal feeding tube as above. Giovani Ritter MD Chest X-Ray 12/14/16 0000 Signed Impressions: Service Date/Time: Wednesday, December 14, 2016 04:33 - CONCLUSION: 1. Limited by motion artifact. 2. Unchanged bibasilar pulmonary infiltrates. Shant Dyer Jr., MD GI Bleed Scan Nuclear Medicine 12/13/16 0000 Signed Impressions: Service Date/Time: December 13:29 - CONCLUSION: No active GI bleeding Giovani Ritter MD Abdomen/Pelvis CT 12/12/16 0000 Signed Impressions: Service Date/Time: Monday, December 12, 2016 21:21 - CONCLUSION: 1. Thickening of the transverse colon. This is concerning for colitis. 2. It appears the patient is status post resection of the ascending colon. There is a bowel anastomosis suture seen at the proximal to mid transverse colon. 3. Hypertrophy of the left lobe and caudate of the liver and a questionable nodular surface. This could potentially represent changes of cirrhosis. There is moderate ascites seen. 4. G-tube in place. 5. Oral contrast is seen in the distal esophagus or within a mild hiatal hernia. 6. Bilateral renal cysts. 7. Suspected bilateral adrenal gland adenomas. Giovani Ruiz MD Abdomen X-Ray 12/07/16 0000 Signed Impressions: Service Date/Time: Wednesday, December 07, 2016 10:02 - CONCLUSION: 1. Improved mild adynamic ileus bowel gas pattern. Sam Bozorgmanesh, MD Chest CT 12/01/16 Signed Impressions: Service Date/Time: Thursday, December 01, 2016 08:13 - CONCLUSION: 1. Severe emphysema with bilateral airspace consolidation in a patchy distribution involving the upper and lower lobes but most severe in the left lower lobe. There is also a trace left pleural effusion. Imaging findings are nonspecific but infection or aspiration should be considerations. 2. Coronary artery calcification. Giovani Lopez MD Head CT 11/27/16 Signed Impressions: Service Date/Time: Sunday, November 27, 2016 14:47 - CONCLUSION: 1. Questionable edema or subacute infarct in the left parietal deep white matter. This would be better evaluated with MRI. No intracranial hemorrhage or significant mass effect. Romario Kauffman MD Brain MRI 11/27/16 Signed Impressions: Service Date/Time: Sunday, November 27, 2016 18:10 - CONCLUSION: 1. Moderate periventricular and subcortical white matter small vessel ischemic changes bilaterally. 2. 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 3. No acute infarct, acute hemorrhage, mass effect or extra-axial fluid collection. 4. Fluid level within sphenoid sinuses. 5. Fluid within the mastoid air cells bilaterally. Hasmukh Oakes MD Abdomen Ultrasound 11/23/16 Signed Impressions: Service Date/Time: Wednesday, November 23, 2016 19:33 - CONCLUSION: 1. Somewhat limited study. Proximal superior mesenteric artery appears patent. 2. Mildly elevated flow velocities in the celiac and hepatic arteries of doubtful clinical significance. Giovani Martinez MD GI Procedure 11/21/16 Signed Impressions: Service Date/Time: Monday, November 21, 2016 10:44 - CONCLUSION: ERCP as above. Reymundo Wilburn MD FACR Physical Exam HEENT: Normocephalic; atraumatic CHEST: Tracheostomy, to vent. Course breath sounds CARDIAC: RRR ABDOMEN: Soft, obese, mild distention, midline scar,hypoactive BS. gtube dressing dry and clean. Flexiseal with liquid dark stool. EXTREMITIES: Generalized edema. STOCK CONTROLLER: on vent. (Radha Jamil SLAB INSPECTOR) Assessment and Plan Plan ASSESSMENT - Abdominal distention, high residuals with TF, in patient with recent right colectomy. CT scan abdomen and pelvis without contrast (12/01/16)----> No acute finding is identified to explain the blood in the stool. There are postsurgical findings suggesting prior right hemicolectomy. Colon contains a fluid and air and there is sigmoid diverticulosis. Rpt. CT scan abdomen and pelvis (12/12/16)---> thickening of the transverse colon, concerning for colitis. It appears the patient is status post resection of the ascending colon. There is a bowel anastomosis sutre seen at the proximal to mid transverse colon. Hypertrophy of the left lobe and caudate of the liver and a questionable nodular surface. This could potentially represent changes of cirrhosis. There is moderate ascites seen, G-tube in place. Oral contrast is seen in the distal esophagus or within a mild hiatal hernia. Bilateral renal cysts. Suspected bilateral adrenal gland adenomas. S/P Conversion of PEG to G/J tube by IR (12/14/16)- clamped. Reglan. + Liquid stool - Abnormal imaging suggesting colitis in transverse colon. CT as above- thickening of transverse colon. CDiff negative. Colonscopy (11/24/16)---> 1. There was moderate diverticulosis noted in the sigmoid, colon, 2. Retroflexed views revealed internal hemorrhoids 3. Retroflexed views revealed medium internal hemorrhoids 4. Revealed external hemorrhoids - Diarrhea. CDiff negative. - Melena, Hemoccult (+). Passing melanotic/maroon stool with clots on 11/30 and 12/01. No further episodes. S/P EGD (12/03/16)---> No active bleeding, gastritis, possible NG tube trauma. Had EGD for PEG tube placement (12/10/16)----> hiatal hernia, 200cc of gastric juice suctioned. S/P PEG. Had drop in hgb on 12/11, but has since been stable. S/ P Bleeding scan (12/13/16)---> no active bleeding. Tolerating TF - Anemia. S/P 4 units. HH 8.8/25.6. PPI No active bleeding. - Recent cecal volvulus, S/p exploratory laparotomy with right colectomy, cholecystomy, for cecal volvulus and gallstones and CBD stones (11/24/16) with Dr. Polanco. GS following. - Choledocholithiasis. S/P ERCP with removal of stones (11/21/16)---> ampulla revealed a prior sphincterotomy, 3 stones in the major papilla, s/p stone extraction with balloon sweep several times. LFT stable. T. Bili normal. - Thrombocytopenia, worsening. Platelets 28. PT 11.5, INR 1.0, Fibrinogen 500. - Sepsis/Leukocytosis, Sputum MRSA, E.Coli, PSAE. WBC 11.0. ID following. Flagyl/Vanco/Zosyn/Diflucan. - Respiratory failure, COPD, pulmonary htn. S/P tracheostomy Per [facility] - Acute kidney injury with electrolyte abnormalities. Creat 0.89. Renal following. - Afib, Systolic heart failure. Anticoagulation is on hold secondary to GI bleeding. - PAD, CVA per attending. 12/15/16 - has been hypotensive, getting central line. dark liquid stool. HH stable, PLT dropped to 28 today. c diff neg. adelina TF 10ml/hr PLAN - TF as tolerated - Cont. Flagyl - Cont. PPI - Cont. Xifaxan - hold lactulose - Abx per ID - Monitor HH - Transfuse as necessary - Supportive care - if recurrent bleeding flex sig vs colonoscopy - This pt seen by myself and Dr Blackman and this note is written on her behalf (Radha Jamil) Physician Comments seen, examined agree with above ct abdomen/pelvis, and chest ordered-unstable at this time to go down daughter at bedside hypotensive, tachycardic, labored respiratory effort , doubt she will survive the day-discussed with daughter, she said she is ready to let her mom go (Rosette Blackman MD) Radha Jamil Dec 15, 2016 09:58 Rosette Blackman MD Dec 15, 2016 15:28
--- NOTE | 2016-12-15 10:12 | RADRPT ---
EXAM DATE/TIME: 12/15/2016 09:45 [facility] COMPARISON: CHEST SINGLE AP, December 14, 2016, 4:33. INDICATIONS : Short of breath. MEDICAL HISTORY : Hypertension. Stroke SURGICAL HISTORY : Hysterectomy. CABG. ENCOUNTER: Sequela ACUITY: 1 week PAIN SCORE: Non-responsive. LOCATION: Bilateral chest FINDINGS: The tracheostomy is in satisfactory position. There is no pneumothorax. The heart is mildly enlarged. The patient is post median sternotomy. There are diffuse chronic inters titial changes most consistent with COPD. The effusions which were seen on previous of 12/14/16 are n ot identified on today's study. The osseous structures are grossly intact. CONCLUSION: 1. COPD changes. 2. Improved appearance of the parenchyma compared to previous study dated 12/14/16. Ben Wilburn MD on December 15, 2016 at 10:10 Board Certified Radiologist. This report was verified electronically.
[2016-12-15 10:54] LABS: INTERNATIONAL NORMALIZED RATIO 1.2 RATIO; PROTHROMBIN TIME - PATIENT 13.4 SEC (9.8-11.6)
[2016-12-15 10:55] LABS: HEMATOCRIT 21.9 % (35.0-46.0); MEAN CELL VOLUME 86.9 FL (80.0-100.0); MEAN CORPUSCULAR HGB CONC 32.3 % (32.0-36.0); PLATELET COUNT 33 TH/MM3 (150-450); RED BLOOD COUNT 2.52 MIL/MM3 (4.00-5.30); RED CELL DISTRIBUTION WIDTH 17.3 % (11.6-17.2); WHITE BLOOD COUNT 19.3 TH/MM3 (4.0-11.0)
[2016-12-15 11:00] LABS: ALKALINE PHOSPHATASE 74 U/L (45-117); ALT (GPT) 14 U/L (10-53); ANION GAP 17 MEQ/L (5-15); AST (GOT) 45 U/L (15-37); BICARBONATE 12.8 MEQ/L (21.0-32.0); BLOOD UREA NITROGEN 50 MG/DL (7-18); CHLORIDE 115 MEQ/L (98-107); GLOMERULAR FILTRATION RATE 31 ML/MIN (>89); POTASSIUM 4.3 MEQ/L (3.5-5.1); SODIUM (NA) 145 MEQ/L (136-145); TOTAL BILIRUBIN ADULT 0.8 MG/DL (0.2-1.0)
[2016-12-15 11:10] LABS: HEMO FLAGS AUTO DIFF
[2016-12-15] MEDS ORDERED: SODIUM CHLORIDE 0.9% FLUSH 10 ML FLUSH IV FLUSH PRN (11:15)
--- NOTE | 2016-12-15 11:16 | PD.PROCEDR ---
Central Line Procedure REASON FOR PROCEDURE Central venous access PROCEDURE PERFORMED Central line placement: Right IJ CVL CONSENT Informed consent for procedure was obtained. The risks and benefits of the procedure were discussed to include but limited to bleeding, clot formation, infection, and even . ANESTHESIA Local injection of 1% Lidocaine DESCRIPTION OF THE PROCEDURE The patient was placed in supine, mild Trendelenburg position. The area was exposed and cleansed with ChloraPrep, times two. Large sterile drape was used to cover the patient, with the site exposed, under sterile conditions including cap, face mask, sterile gown, and sterile gloves. On single attempt, the introducer needle was inserted with negative pressure in syringe and venous flash was obtained. The guide wire was then advanced without any restriction and the needle was removed. The dilator was used without any complications. Using Seldinger technique the triple-lumen antibiotic coated catheter was advanced over the guide wire to a depth of 16 centimeters. The guide wire was removed. All ports were aspirated with dark venous blood return and flushed easily with sterile saline. All ports were capped. Antibiotic disc was placed around central line at puncture site. The central line was secured to the skin with two interrupted 2.0 silk sutures. The area was bandaged with sterile see- through central line bandage. RADIOLOGICAL DATA Ultrasound guidance was used to locate right internal jugular vein. Doppler/ color flow was used to confirm venous flow. COMPLICATIONS: No apparent complications ESTIMATED BLOOD LOSS: Less than 1 cc. Jean Pierre Oh MD Dec 15, 2016 11:16
[2016-12-15] MEDS: ARTIFICIAL TEARS OPTH SOLN 15 ML BTL LEFT EYE SCH ×3 (11:24→14:18)
[2016-12-15] MEDS: SODIUM BICARBONATE 325 MG TAB NG SCH ×3 (11:25→16:54)
[2016-12-15] MEDS: RIFAXIMIN 550 MG TAB PO SCH (11:26)
[2016-12-15] MEDS: PANTOPRAZOLE SODIUM 40 MG VIAL IV PUSH SCH (11:26)
[2016-12-15] MEDS: URSODIOL 300 MG CAP PO SCH ×2 (11:26)
[2016-12-15 11:30] LABS: BANDS 21 % (0-6); CORRECTED NUCLEATED RBC 4 /100 WBC (0-0); METAMYELOCYTES 12 % (0-1); NEUTROPHIL # MANUAL DIFF 17.8 TH/MM3 (1.8-7.7); PLATELET ESTIMATE SMEAR LOW (NORMAL); PLATELET MORPHOLOGY ENLARGED (NORMAL); POLYS (SEG NEUTROPHILS) 59 % (16-70); WBC DIFF SAMPLE 100
[2016-12-15 11:32] LABS: ACANTHOCYTES 1+ (NORMAL); OVALOCYTES 1+ (NORMAL)
[2016-12-15 11:33] LABS: SCAN/DIFF FINAL DIFF MANUAL
[2016-12-15] MEDS: methylPREDNISolone SOD SUCC 40 MG/1 ML VIAL IV PUSH SCH (11:37)
[2016-12-15 12:05] LABS: BLOOD GAS BASE EXCESS -14.5 mmol/L (-2-2); BLOOD GAS HCO3 11 mmol/L (22-26); BLOOD GAS METHEMOGLOBIN 1.4 % (0-2); BLOOD GAS O2 HGB SATURATION 97 % (90-100); BLOOD GAS OXYGEN CONTENT 11.1 Vol % (12.0-20.0); BLOOD GAS PCO2 22 mmHg (38-42); BLOOD GAS PO2 441 mmHg (61-120); BLOOD GAS TOTAL HGB 7.3 G/DL (12.0-16.0); CRITICAL VALUE YES; OXYGEN DEVICE VENTILATOR; TEMP CORR TO 98.6
[2016-12-15 12:06] LABS: DRAW SITE LT RADIAL; FIO2 100 %; NUMBER OF ARTERIAL PUNCTURES 1; STAT NO; ULNAR PULSE PRESENT
[2016-12-15] MEDS: FLUCONAZOLE 400 MG PREMIX BAG 200 ML IV SCH (12:09)
--- NOTE | 2016-12-15 12:11 | RADRPT ---
EXAM DATE/TIME: 12/15/2016 11:31 [facility] COMPARISON: CHEST SINGLE AP, December 15, 2016, 9:45. INDICATIONS : Central line placement. MEDICAL HISTORY : Hypertension. Stroke. SURGICAL HISTORY : CABG. Hysterectomy. ENCOUNTER: Initial ACUITY: 1 day PAIN SCORE: Non-responsive. LOCATION: Bilateral chest FINDINGS: The heart is normal in size. The mediastinal contours are within normal limits. There are moderate COPD changes throughout the pulmonary parenchyma. The tracheostomy is in good position. There is a new right jugular central line catheter tip overlies the superior vena cava. The patient is post median sternotomy. CONCLUSION: 1. Right jugular central line in satisfactory position without evidence of pneumothorax. 2. COPD and postsurgical changes as above. Ben Wilburn MD on December 15, 2016 at 12:08 Board Certified Radiologist. This report was verified electronically.
[2016-12-15] MEDS ORDERED: SODIUM BICARBONATE 8.4% INJ 50 MEQ/50 ML SYR IV PUSH ONE (12:30)
[2016-12-15] MEDS ORDERED: SODIUM BICARBONATE 8.4% INJ 150 MEQ in WATER STERILE FOR INJ 850 ML IV SCH (13:00)
--- NOTE | 2016-12-15 14:15 | EKG ---
Date Performed: 12/15/2016 Time Performed: 12:08:30 PTAGE: 86 years EKG: atrial fibrillation LOW QRS VOLTAGE IN EXTREMITY LEADS POSSIBLE ANTERIOR MYOCARDIAL INFARCT ION , PROBABLY OLD MODERATE T-WAVE ABNORMALITY, CONSIDER INFERIOR ISCHEMIA ABNORMAL ECG PREVIOUS TRACING : 11/29/2016 08.07 DOCTOR: Delbert Burns Interpretating Date/Time 12/15/2016 14:13:15
[2016-12-15] MEDS ORDERED: PHENYLEPHRINE INJ 160 MG in DEXTROSE 5% IN WATE 500 ML INJ 484 ML IV PRN ×2 (15:45)
[2016-12-15] MEDS ORDERED: TERBUTALINE INJ 1 MG/ML AMP SQ PRN (15:45)
[2016-12-15] MEDS ORDERED: DILTIAZEM INJ 125 MG in SODIUM CHLORIDE 0.9% INJ 100 ML IV PRN (15:45)
[2016-12-15] MEDS ORDERED: DIGOXIN 0.5 MG/2 ML VIAL IV PUSH ONE ×2 (16:00→22:00)
[2016-12-15] MEDS ORDERED: DILTIAZEM HCL 25 MG/5 ML VIAL IV PUSH ONE (16:00)
[2016-12-15 16:07] LABS: BLOOD, URINE NEG (NEG); GLUCOSE,URINE NEG (NEG); HYALINE CAST, URINE 1 /lpf (RARE); KETONE, URINE NEG (NEG); NITRITE,URINE NEG (NEG); PH, URINE 5.5 (5.0-8.5); URINE COLOR YELLOW (YELLW/STRAW)
[2016-12-15 16:08] LABS: COMMENT (UR) CATH-CULT NOT IND; CULTURE IF INDICATED CATH CULTURE NOT IND
[2016-12-15] MEDS ORDERED: METOPROLOL TARTRATE 5 MG/5 ML VIAL IV PUSH ONE (17:00)
[2016-12-16] VITALS: BP 87/41; PULSE 87; RESP 36; TEMP 99.8
[2016-12-16 00:02] VITALS: O2SAT 95
[2016-12-16 02:00] VITALS: PULSE 69
--- NOTE | 2016-12-16 04:13 | DEATH SUM ---
Summary Demographics Date Pronounced : Dec 16, 2016 Time Of : 02:25 Pronounced By: Mekhi Henry MD Preliminary Cause of : Cardiac arrest Lavon Henry MD Dec 16, 2016 04:13
[2016-12-16] MEDS ORDERED: SODIUM CHLORIDE 0.9% FLUSH 10 ML FLUSH IV FLUSH SCH (09:00)
--- NOTE | 2017-01-03 11:53 | HHI.DS ---
Summary Note Date of : Dec 16, 2016 Time Of : 02:25 Admission Date Nov 20, 2016 at 15:58 Admitting Diagnosis abdominal pain. Transaminitis. Ileus. Chest pain. Diagnosis at Time of : (1) Sepsis ICD Code: A41.9 - Sepsis, unspecified organism Diagnosis: Principal (2) Abdominal pain ICD Code: R10.9 - Abdominal pain Diagnosis: Principal (3) CAD (coronary artery disease) ICD Code: I25.10 - CAD (coronary artery disease) (4) Hypertension ICD Code: I10 - Hypertension Diagnosis: Secondary (5) Transaminitis ICD Code: R74.0 - Nonspecific elevation of levels of transaminase and lactic acid dehydrogenase [LDH] Diagnosis: Secondary (6) Atrial flutter ICD Code: I48.92 - Atrial flutter Diagnosis: Principal Procedures Exploratory laparotomy/right colectomy cholecystectomy by Dr. Polanco ERCP 11/21 Brief History 86 y/o woman developed worsening SOB this afternoon associated with marked leukocytosis. Recent biliary instrumentation for obstruction 48 hours ago and probable sepsis. On appropriate antibiotics. Requiring NRBM now for oxygenation to 97%. Visibly labored breathing. CXR with interstitial edema. EF 35% 2014. Move to ICU. 11/24: Patient s/p colonoscopy this morning which showed mod. diverticulosis in sigmoid colon and hemorrhoids. Remains on NRB with good sats. Afebrile. Cr increased 1.51 from 1.08. 11/25 Patient s/p Ex lap, right colectomy and cholecystectomy. She kept intubated postop went into Afib with RVR overnight and placed on Cardizem drip 10mg/hr. 11/26 Patient is sedated with Diprivan, fentanyl and intubated. Afebrile. On Cardizem drip 5mg/hr. renal function worse with Cr: 2.01 from 1.89, UOP: 1L in 24 hrs 11/27 Patient remains sedated and intubated. Off Cardizem drip. Renal function is improving with Cr: 1.67 from 2.01. Afebrile. 11/28 remains intubated sedated. Heart rate controlled. Creat 1.26. Hb 6.5. Status post 2 units PRBC today. WBC count decreased from 40,000-26,000. Creat improving 1.26 11/29: Patient A. fib with RVR currently on diltiazem drip at 15 mg an hour for rate control. Hemodynamically stable. 11/30: Heart rate better controlled today. Diltiazem drip discontinued overnight. Heart rate currently in the 70s. Tolerated PSV trials yesterday. We'll attempt extubation today if tolerates. No bowel movement. Tolerating tube feeds at 30 cc an hour 12/01: Tmax 101.7. Failed extubation trial after 1 hour yesterday. Persistently hypotensive post intubation. Transfuse 1 unit hemoglobin yesterday for melena per RN. Hemoglobin went from 7.5-11.3. CVP is 12. Enoxaparin will be held. CT thorax, abdomen and pelvis performed now. Lactate pending. Serial hemoglobins. GI consult for EGD 12/03: Patient remains sedated with Diprivan and Fentanyl and intubated. On Levophed 4 mics, Cardizem drip 2.5mg/hr. For EGD today 12/04 Patient is sedated and intubated. s/p EGD yesterday showed gastritis, no active bleeding. Remains on Cardizem 2.5mg/hr and Levophed 3 mics. Afebrile. 12/05: Afebrile. Hemoglobin stable. Off norepinephrine and diltiazem drips. Creatinine stabilizing. 12/06: No acute events reported overnight. Plan for tracheostomy at 10 AM today. Platelet count is 68,000, discussed this with Dr. Polanco. HIT screen ordered yesterday pending 12/07 Patient s/p trach yesterday sedated with Diprivan. Afebrile. 12/08 Patient is on ventilator via trach, T: 100.8 at 4am. 12/09 No events overnight sedated with Diprivan and intubated. Afebrile. 12/10 Patient remains sedated and intubated, for PEG tube placement today. 12/11 s/p PEG tube placement yesterday. Sedated with Diprivan and intubated. 12/12 Patient remains sedated and on ventilator via trach. Afebrile. Given 1unit PRBC, FFP and PLT yesterday 12/13 Patient remains intubated and on vent via trach. CT abd/pelvis last night showed possible colitis. Not tolerating enteral feeding. 12/14: Remains on tracheostomy/ventilator. Status post GJ tube conversion with IR. Platelets decreased to 28,000. 12/15: Tmax 99.1. This AM, acute episode of hypotension. Sedation placed on hold receiving 1 L LR at 50 g albumin 1 now. Patient mouth open. Dry mucosa. Significant Findings Last Impressions Chest X-Ray 12/15/16 1115 Signed Impressions: Service Date/Time: Thursday, December 15, 2016 11:31 - CONCLUSION: 1. Right jugular central line in satisfactory position without evidence of pneumothorax. 2. COPD and postsurgical changes as above. Ben Wilburn MD Gastrostomy Tube Change 12/14/16 0000 Signed Impressions: Service Date/Time: Wednesday, December 14, 2016 10:41 - CONCLUSION: Uncomplicated fluoroscopic guided conversion of gastrostomy tube to gastrojejunal feeding tube as above. Giovani Ritter MD GI Bleed Scan Nuclear Medicine 12/13/16 0000 Signed Impressions: Service Date/Time: December 13:29 - CONCLUSION: No active GI bleeding Giovani Ritter MD Abdomen/Pelvis CT 12/12/16 0000 Signed Impressions: Service Date/Time: Monday, December 12, 2016 21:21 - CONCLUSION: 1. Thickening of the transverse colon. This is concerning for colitis. 2. It appears the patient is status post resection of the ascending colon. There is a bowel anastomosis suture seen at the proximal to mid transverse colon. 3. Hypertrophy of the left lobe and caudate of the liver and a questionable nodular surface. This could potentially represent changes of cirrhosis. There is moderate ascites seen. 4. G-tube in place. 5. Oral contrast is seen in the distal esophagus or within a mild hiatal hernia. 6. Bilateral renal cysts. 7. Suspected bilateral adrenal gland adenomas. Giovani Ruiz MD Abdomen X-Ray 12/07/16 0000 Signed Impressions: Service Date/Time: Wednesday, December 07, 2016 10:02 - CONCLUSION: 1. Improved mild adynamic ileus bowel gas pattern. Sam Buckner MD Chest CT 12/01/16 0000 Signed Impressions: Service Date/Time: Thursday, December 01, 2016 08:13 - CONCLUSION: 1. Severe emphysema with bilateral airspace consolidation in a patchy distribution involving the upper and lower lobes but most severe in the left lower lobe. There is also a trace left pleural effusion. Imaging findings are nonspecific but infection or aspiration should be considerations. 2. Coronary artery calcification. Giovani Lopez MD Head CT 11/27/16 0000 Signed Impressions: Service Date/Time: Sunday, November 27, 2016 14:47 - CONCLUSION: 1. Questionable edema or subacute infarct in the left parietal deep white matter. This would be better evaluated with MRI. No intracranial hemorrhage or significant mass effect. Romario Kauffman MD Brain MRI 11/27/16 0000 Signed Impressions: Service Date/Time: Sunday, November 27, 2016 18:10 - CONCLUSION: 1. Moderate periventricular and subcortical white matter small vessel ischemic changes bilaterally. 2. 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 3. No acute infarct, acute hemorrhage, mass effect or extra-axial fluid collection. 4. Fluid level within sphenoid sinuses. 5. Fluid within the mastoid air cells bilaterally. Hasmukh Oakes MD Abdomen Ultrasound 11/23/16 0000 Signed Impressions: Service Date/Time: Wednesday, November 23, 2016 19:33 - CONCLUSION: 1. Somewhat limited study. Proximal superior mesenteric artery appears patent. 2. Mildly elevated flow velocities in the celiac and hepatic arteries of doubtful clinical significance. Giovani Martinez MD GI Procedure 11/21/16 0000 Signed Impressions: Service Date/Time: Monday, November 21, 2016 10:44 - CONCLUSION: ERCP as above. Reymundo Wilburn MD FA[facility] Imaging Last Impressions Gastrostomy Tube Change 12/14/16 0000 Signed Impressions: Service Date/Time: Wednesday, December 14, 2016 10:41 - CONCLUSION: Uncomplicated fluoroscopic guided conversion of gastrostomy tube to gastrojejunal feeding tube as above. Giovani Ritter MD Chest X-Ray 12/14/16 0000 Signed Impressions: Service Date/Time: Wednesday, December 14, 2016 04:33 - CONCLUSION: 1. Limited by motion artifact. 2. Unchanged bibasilar pulmonary infiltrates. Shant Dyer Jr., MD GI Bleed Scan Nuclear Medicine 12/13/16 0000 Signed Impressions: Service Date/Time: December 13:29 - CONCLUSION: No active GI bleeding Giovani Ritter MD Abdomen/Pelvis CT 10/4/17 0000 Signed Impressions: Service Date/Time: Monday, December 12, 2016 21:21 - CONCLUSION: 1. Thickening of the transverse colon. This is concerning for colitis. 2. It appears the patient is status post resection of the ascending colon. There is a bowel anastomosis suture seen at the proximal to mid transverse colon. 3. Hypertrophy of the left lobe and caudate of the liver and a questionable nodular surface. This could potentially represent changes of cirrhosis. There is moderate ascites seen. 4. G-tube in place. 5. Oral contrast is seen in the distal esophagus or within a mild hiatal hernia. 6. Bilateral renal cysts. 7. Suspected bilateral adrenal gland adenomas. Giovani Ruiz MD Abdomen X-Ray 12/07/16 Signed Impressions: Service Date/Time: Wednesday, December 07, 2016 10:02 - CONCLUSION: 1. Improved mild adynamic ileus bowel gas pattern. Sam Buckner MD Chest CT 12/01/16 0000 Signed Impressions: Service Date/Time: Thursday, December 01, 2016 08:13 - CONCLUSION: 1. Severe emphysema with bilateral airspace consolidation in a patchy distribution involving the upper and lower lobes but most severe in the left lower lobe. There is also a trace left pleural effusion. Imaging findings are nonspecific but infection or aspiration should be considerations. 2. Coronary artery calcification. Giovani Lopez MD Head CT 11/27/16 0000 Signed Impressions: Service Date/Time: Sunday, November 27, 2016 14:47 - CONCLUSION: 1. Questionable edema or subacute infarct in the left parietal deep white matter. This would be better evaluated with MRI. No intracranial hemorrhage or significant mass effect. Romario Kauffman MD Brain MRI 11/27/16 0000 Signed Impressions: Service Date/Time: Sunday, November 27, 2016 18:10 - CONCLUSION: 1. Moderate periventricular and subcortical white matter small vessel ischemic changes bilaterally. 2. 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 3. No acute infarct, acute hemorrhage, mass effect or extra-axial fluid collection. 4. Fluid level within sphenoid sinuses. 5. Fluid within the mastoid air cells bilaterally. Hasmukh Oakes MD Abdomen Ultrasound 11/23/16 0000 Signed Impressions: Service Date/Time: Wednesday, November 23, 2016 19:33 - CONCLUSION: 1. Somewhat limited study. Proximal superior mesenteric artery appears patent. 2. Mildly elevated flow velocities in the celiac and hepatic arteries of doubtful clinical significance. Giovani Martinez MD GI Procedure 11/21/16 0000 Signed Impressions: Service Date/Time: Monday, November 21, 2016 10:44 - CONCLUSION: ERCP as above. Reymundo Wilburn MD [facility] Hospital Course Neuro/Psych: History of chronic bilateral basal ganglia CVA Acute toxic metabolic encephalopathy Prosthetic left eye On propofol as needed infusion for sedation/analgesia while intubated Goal of RASS -2 Daily sedation vacation. MRI brain 11/27 showed moderate small vessel disease, old bilateral basal ganglia CVA however no acute findings. Evaluated by Dr. Roque - neurology Continue amitriptyline 10 mg at night Acetaminophen 650 mg by tube every 6 hours. Fever Pulm: Acute hypoxemic respiratory failure- Extubated and reintubated on 11/30 History of COPD ACV 18/650/5/35 Ventilator bundle. s/p trach 12/06 Albuterol/ipratropium aerosols every 6 hours with albuterol aerosols every 2 hours as needed for dyspnea Solumederol 40mg Q12. Continue with vent support and maintain sat >92%. SBT daily as adelina. CT chest 11/20: Severe underlying emphysema. Status post median sternotomy with postsurgical changes. CT thorax 11/30 revealed severe emphysema. Bilateral upper and lower lobe infiltrates/glass ground likely aspiration. CV: Systolic heart failure - likely chronic ejection fraction 40% Severe sepsis Atrial Fibrillation w/ RVR - normal sinus rhythm History of hypertension Severe pulmonary hypertension likely group 3 secondary to COPD PAD history of bilateral CEA On diltiazem 30 mg by mouth every 6 hours. Echo from 11/26 EF 40%, mild MR. Moderate AR/TR. Severe pulmonary HTN (PAP 70mmHg) ASA 81 mg daily held in light of GI bleeding Continue Atorvastatin 80 mg daily RENAL//FEN: Acute kidney injury resolved Monitor renal function, I/O's, avoid nephrotoxins, Nephrology has followed and signed off- Dr. 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 Gastroesophageal reflux disease Transaminitis Status post GJ conversion by IR today s/p PEG tube placement 12/10- Tf on hold Glucerna 1.5 with goals rate 45ml/hr restart trickle feeds GI is following. IR consulted for conversion G-J tube. 12/12: CT abd/pelvis: Possible colitis. C-diff PCR negative 12/11 12/01 KUB abdomen 12/07: Improved mild adynamic ileus bowel gas pattern. KUB 12/04 revealed mild ileus. 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 Mild head pancreatitis possible in the proper clinical setting. Patient has recently had ERCP and bile duct stone extraction. Bibasilar pneumonia developing. Tiny pleural effusion on the right US abdomen: Proximal superior mesenteric artery appears patent. Currently on lactulose 30 cc twice a day and Xifaxan 550 twice a day. Ammonia level 42 on 12/06 On ursodiol 300 mg by mouth twice daily. Resume when clinically indicated On metoclopramide per Dr. Polanco for bowel prokinetic medication ID: MRSA pneumonia Continue with abx per ID (piperacillin/tazobactam/metronidazole/fluconazole/ Vanco) Monitor for signs of infections ( Fever, WBC) recheck sputum cx Pertinent cultures Sputum 12/10 : MRSA, E.coli, Pseudomonas BC 11/24: NGTD . Blood cultures 11/29 -no growth C. difficile negative 12/01 12/03 - blood cultures 2 - no growth 12/03, 12/07 - sputum - MRSA Heme: Leukocytosis..trending down Normocytic anemia Thrombocytopenia Monitor CBC, coags s/p transfusion 1unit PRBC, PLT, FFP yesterday. Status post 2 units PRBCs 11/28. 1 unit PRBCs 12/01 Hemoccult stool 11/30 positive HIT negative Endo: SSI with accuchecks with Novulin R every 4 hours GI prophylaxis- Pantoprazole 40mg IV twice a day DVT prophylaxis- Enoxaparin 30mg daily held in light of GI bleed, thrombocytopenia Lines: peripheral IV's Patient became increasingly hemodynamically unstable after 1800. Requiring multiple vasopressors overnight after 6 PM. Family decided not to pursue aggressive measures at around 2:15 AM. at 25 Biga,Jean Pierre Romano MD Jan 03, 2017 11:53
== END 2016-12-16 02:25 | disposition expired | DRG 3 ==
LOC: NEPD 12:37 → NEDA 15:58 → N05A 17:46 → N04B 20:44 → HIMN 11-23 19:45
PROVIDERS: ADMIT Surgery Surgical Critical Care; ATTEND Surgery Surgical Critical Care
PROC: 0FC98ZZ Extirpation of Matter from Common Bile Duct, Via Natural or Artificial Opening Endoscopic (ICD-10-PCS; 2016-11-21)
PROC: 0WJP0ZZ Inspection of Gastrointestinal Tract, Open Approach (ICD-10-PCS; 2016-11-24)
PROC: 0WJJ0ZZ Inspection of Pelvic Cavity, Open Approach (ICD-10-PCS; 2016-11-24)
PROC: 0DJD8ZZ Inspection of Lower Intestinal Tract, Via Natural or Artificial Opening Endoscopic (ICD-10-PCS; 2016-11-24)
PROC: 5A1955Z Respiratory Ventilation, Greater than 96 Consecutive Hours (ICD-10-PCS; 2016-11-24)
PROC: 0BH17EZ Insertion of Endotracheal Airway into Trachea, Via Natural or Artificial Opening (ICD-10-PCS; 2016-11-24)
PROC: 0FT40ZZ Resection of Gallbladder, Open Approach (ICD-10-PCS; principal; 2016-11-24 10:15)
PROC: 0DTF0ZZ Resection of Right Large Intestine, Open Approach (ICD-10-PCS; 2016-11-24 14:46)
PROC: 30233N1 Transfusion of Nonautologous Red Blood Cells into Peripheral Vein, Percutaneous Approach (ICD-10-PCS; 2016-11-28)
PROC: 0T9B70Z Drainage of Bladder with Drainage Device, Via Natural or Artificial Opening (ICD-10-PCS; 2016-11-30)
PROC: 5A1955Z Respiratory Ventilation, Greater than 96 Consecutive Hours (ICD-10-PCS; 2016-11-30)
PROC: 0BH17EZ Insertion of Endotracheal Airway into Trachea, Via Natural or Artificial Opening (ICD-10-PCS; 2016-11-30)
PROC: 0DJ08ZZ Inspection of Upper Intestinal Tract, Via Natural or Artificial Opening Endoscopic (ICD-10-PCS; 2016-12-03)
PROC: 0B113F4 Bypass Trachea to Cutaneous with Tracheostomy Device, Percutaneous Approach (ICD-10-PCS; 2016-12-06)
PROC: 0B978ZZ Drainage of Left Main Bronchus, Via Natural or Artificial Opening Endoscopic (ICD-10-PCS; 2016-12-06)
PROC: 0DH63UZ Insertion of Feeding Device into Stomach, Percutaneous Approach (ICD-10-PCS; 2016-12-10)
PROC: 30233K1 Transfusion of Nonautologous Frozen Plasma into Peripheral Vein, Percutaneous Approach (ICD-10-PCS; 2016-12-11)
PROC: 0DHA3UZ Insertion of Feeding Device into Jejunum, Percutaneous Approach (ICD-10-PCS; 2016-12-14)
PROC: 6A550Z2 Pheresis of Platelets, Single (ICD-10-PCS; 2016-12-15)
PROC: 05HM33Z Insertion of Infusion Device into Right Internal Jugular Vein, Percutaneous Approach (ICD-10-PCS; 2016-12-15)
DX: K80.31 Calculus of bile duct with cholangitis, unspecified, with obstruction (principal); A41.02 Sepsis due to Methicillin resistant Staphylococcus aureus; R65.21 Severe sepsis with septic shock; J15.212 Pneumonia due to Methicillin resistant Staphylococcus aureus; G92 Toxic encephalopathy; N17.9 Acute kidney failure, unspecified; K56.2 Volvulus; E87.0 Hyperosmolality and hypernatremia; I13.0 Hypertensive heart and chronic kidney disease with heart failure and stage 1 through stage 4 chronic kidney disease, or unspecified chronic kidney disease; K85.90 Acute pancreatitis without necrosis or infection, unspecified; J96.01 Acute respiratory failure with hypoxia; E46 Unspecified protein-calorie malnutrition; I50.20 Unspecified systolic (congestive) heart failure; J44.0 Chronic obstructive pulmonary disease with (acute) lower respiratory infection; Z99.11 Dependence on respirator [ventilator] status; K56.0 Paralytic ileus; I48.92 Unspecified atrial flutter; I42.9 Cardiomyopathy, unspecified; R18.8 Other ascites; E87.2 Acidosis; H47.619 Cortical blindness, unspecified side of brain; D69.6 Thrombocytopenia, unspecified; E87.6 Hypokalemia; I48.91 Unspecified atrial fibrillation; E78.5 Hyperlipidemia, unspecified; K21.9 Gastro-esophageal reflux disease without esophagitis; Z51.5 Encounter for palliative care; K44.9 Diaphragmatic hernia without obstruction or gangrene; M19.90 Unspecified osteoarthritis, unspecified site; I25.10 Atherosclerotic heart disease of native coronary artery without angina pectoris; N18.9 Chronic kidney disease, unspecified; K57.30 Diverticulosis of large intestine without perforation or abscess without bleeding; K64.4 Residual hemorrhoidal skin tags; K64.8 Other hemorrhoids; D64.9 Anemia, unspecified; E83.39 Other disorders of phosphorus metabolism; K29.70 Gastritis, unspecified, without bleeding; Z95.1 Presence of aortocoronary bypass graft; Z90.01 Acquired absence of eye; Z87.891 Personal history of nicotine dependence; Z86.73 Personal history of transient ischemic attack (TIA), and cerebral infarction without residual deficits; Z97.0 Presence of artificial eye; I73.9 Peripheral vascular disease, unspecified; N28.1 Cyst of kidney, acquired; K52.9 Noninfective gastroenteritis and colitis, unspecified; I46.9 Cardiac arrest, cause unspecified; I27.23 Pulmonary hypertension due to lung diseases and hypoxia; T17.990A Other foreign object in respiratory tract, part unspecified in causing asphyxiation, initial encounter; D35.02 Benign neoplasm of left adrenal gland; D35.01 Benign neoplasm of right adrenal gland
CPT/HCPCS: 31500; 31600; 31624; 36430; 36556; 36600; 49446; 70450; 70551; 71010; 71250; 74000; 74176; 74177; 74330; 76937; 78278; 80048; 80053; 80076; 80162; 80202; 81001; 82140; 82150; 82272; 82550; 82552; 82570; 82805; 82948; 83010; 83605; 83615; 83690; 83735; 83880; 84100; 84132; 84155; 84300; 84484; 85007; 85014; 85018; 85025; 85027; 85060; 85384; 85610; 85730; 86022; 86403; 86850; 86900; 86901; 86920; 86921; 86922; 86927; 87040; 87070; 87077; 87147; 87186; 87205; 87493; 87641; 88304; 88307; 93005; 93306; 93975; 94002; 94003; 94640; 94664; 95819; 96361; 96374; 96375; 96376; A7520; A7521; A9560; C1769; C1887; C1894; C9113; J0330; J1160; J1170; J1450; J1630; J1650; J1940; J1956; J2020; J2175; J2250; J2270; J2370; J2405; J2543; J2710; J2765; J2920; J3010; J3370; J3430; J3475; J3480; J7030; J7040; J7042; J7050; J7060; J7070; J7120; J7613; P9016; P9017; P9031; P9035; P9047; Q9963; Q9967